=== PATIENT | male | born 1970 | race Caucasian/White ===

== ENCOUNTER 2024-05-06 09:22 | Inpatient (IN) ==
--- NOTE | 2024-05-06 10:09 | Emergency Department Note ---
History of Present Illness General Chief complaint: Weakness Stated complaint: R SIDE WEAKNESS Time Seen by Provider: 05/06/24 09:27 Source: patient Mode of arrival: wheelchair Limitations: physical limitation History of Present Illness Patient is a 53-year-old male with history of recently diagnosed glioblastoma of the left parietal region presenting with right sided weakness and muscle spasms. Last known well at 4:30 AM this morning. Patient has chronic weakness to his right upper extremity with intermittent weakness in the right lower extremity however worse today. He is unable to ambulate due to weakness in his right leg and has numbness from the knee down. He also has weakness in his right arm that is more severe than his baseline. Patient is also reporting spasms to the chest wall that started this morning as well. These are new and he has not had this before. He last received chemotherapy in March. He denies any headache, vision change, speech change, facial droop. Denies any lightheadedness, dizziness, fevers or chills. No chest pain, shortness of breath, abdominal pain, nausea, vomiting. He is on dexamethasone chronically and recently decrease his dose to daily from twice daily. Home Medications Medication Instructions Recorded Confirmed Type ibuprofen 200 mg tablet (Advil) 800 mg PO QID PRN Pain 06/08/18 05/06/24 History losartan 50 mg-hydrochlorothiazide 1.5 tab PO QAM 01/16/24 05/06/24 History 12.5 mg tablet metformin 500 mg tablet,extended 1,000 mg PO BID 01/16/24 05/06/24 History release 24 hr tirzepatide 2.5 mg/0.5 mL 2.5 mg subcut WK 01/16/24 05/06/24 History subcutaneous pen injector (Mounjaro) acetaminophen 325 mg tablet 975 mg PO Q6H PRN Pain 02/12/24 05/06/24 History (Tylenol) albuterol sulfate 90 mcg/actuation 2 puff inhalation Q4H PRN 02/12/24 05/06/24 History aerosol inhaler (Ventolin HFA) SOB/Wheezing temozolomide 180 mg capsule 0 mg PO DAILY 03/10/24 05/06/24 History Allergies Allergy/AdvReac Type Severity Reaction Status Date / Time No Known Allergies Allergy Unknown Unverified 05/06/24 13:26 Past Med/Surg History Problem List (Updated 05/06/24 @ 15:09 by Will Estevez MD) Right arm weakness (Acute) Right leg weakness (Acute) Glioblastoma multiforme of parietal lobe (Chronic 01/22/24) Medical History (Updated 05/06/24 @ 15:09 by Will Estevez MD) Sleep apnea Diabetes HTN (hypertension) Surgical History (Updated 02/12/24 @ 09:25 by Li Glover, RN) History of surgery Left hand surgery d/t nail in hand S/P craniotomy Left craniotomy for tumor resection 01/22/24 Dr. Lopez at [facility] Family History (Updated 02/12/24 @ 09:27 by Li Glover, RN) Mother No problems noted. Father Hypertension Diabetes Brother No problems noted. Sister No problems noted. Son No problems noted. Daughter No problems noted. 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 Physical Exam Vital Signs Vital Signs - 24 hr 05/06/24 09:25 05/06/24 09:34 05/06/24 09:35 Temperature 36.6 C Temperature Source Oral Pulse Rate 128 H 137 H Pulse Rate [Apical] Pulse Strength [Apical] Respiratory Rate 25 H Respiratory Effort / Characteristics Non-Labored Spontaneous Respiratory Depth Normal Respiratory Pattern Blood Pressure 159/115 H Blood Pressure [Left Arm] Blood Pressure Mean 129 Blood Pressure Mean [Left Arm] Pulse Oximetry 96 Oxygen Delivery Method Room Air Room Air Sepsis Recent Fever Within 48 Hours No Sepsis New/Unexplained Change in Mental Status No Sepsis Action Taken by Nursing No Action Required 05/06/24 11:30 05/06/24 13:00 05/06/24 14:14 Temperature Temperature Source Pulse Rate 80 Pulse Rate [Apical] 96 H 86 Pulse Strength [Apical] Normal Respiratory Rate 24 21 Respiratory Effort / Characteristics Non-Labored Respiratory Depth Normal Respiratory Pattern Regular Blood Pressure Blood Pressure [Left Arm] 114/75 Blood Pressure Mean Blood Pressure Mean [Left Arm] 88 Pulse Oximetry 91 94 Oxygen Delivery Method Room Air Room Air Sepsis Recent Fever Within 48 Hours Sepsis New/Unexplained Change in Mental Status Sepsis Action Taken by Nursing See below Constitutional WD/WN, vitals as above Eyes PERRL, conjunctivae normal, anicteric sclerae Neck trachea midline, no thyromegaly Respiratory + labored breathing, + uses accessory muscles and + abnormal respiratory pattern Auscultation: lungs clear to auscultation bilaterally Cardiovascular Rate/Rhythm: + tachycardic Heart Sounds: normal S1 and normal S2 Chest (Breasts) normal inspection/palpation of breasts Additional Comments: Intermittent spasms noted to the chest wall Gastrointestinal (Abdomen) normal bowel sounds, soft, nontender, no hepatosplenomegaly Musculoskeletal no cyanosis or clubbing, extremities motor strength 5/5 Skin no rashes, warm and dry Neurologic Cranial nerves II through XII are intact, normal speech, 4 out of 5 strength in the right upper extremity, 5 out of 5 strength in the left upper extremity, 3 out of 5 strength to the right lower extremity, 5 out of 5 strength to the left lower extremity, light touch sensation deficit noted to the right lower extremity distal to the right knee joint, unable to assess gait, unable to assess finger-nose testing or [id number] testing on the right Course Administered Medications Discontinued Medications Ioversol (Optiray 320 125ml) 112 ml IV ONCE ONE Stop: 05/06/24 10:50 Last Admin: 05/06/24 10:49 Dose: 112 ml Documented By: FIOR Lorazepam (Lorazepam 2 Mg/1 Ml Vial) 1 mg IV NOW STA Stop: 05/06/24 09:57 Last Admin: 05/06/24 10:14 Dose: 1 mg Documented By: Medical Decision Making Differential Diagnosis CVA, intracranial bleed, progression of underlying glioblastoma Medical Records Attestation: I reviewed the patient's medical records. Laboratory Data Attestation: I reviewed the patient's lab results. 05/06/24 09:34 05/06/24 09:34 Lab Results 05/06/24 05/06/24 05/06/24 Range/Units 09:34 10:12 11:55 WBC 13.42 H (4.8-10.8) K/ul RBC 5.21 (4.70-6.10) M/uL Hgb 15.6 (14.0-18.0) g/dl Hct 44.7 (42.0-52.0) % MCV 85.8 (80.0-100.0) fL MCH 29.9 (25.0-34.0) pg MCHC 34.9 (32.0-36.0) g/dL RDW Std Deviation 45.2 (36.4-46.3) fL RDW Coeff of Fani 14.6 H (11.5-14.5) % Plt Count 151 (130-400) K/uL MPV 9.7 (9.4-12.4) fL Immature Gran % (Auto) 3.6 % Neut % (Auto) 83.2 % Lymph % (Auto) 5.6 % [place] % (Auto) 7.1 % Eos % (Auto) 0.2 % Baso % (Auto) 0.3 % Neut # (Auto) 11.17 H (1.40-6.50) K/uL Lymph # (Auto) 0.75 L (1.20-3.40) K/uL [place] # (Auto) 0.95 H (0.11-0.59) K/uL Eos # (Auto) 0.03 (0.00-0.50) K/uL Baso # (Auto) 0.04 (0.00-0.20) K/uL Immature Gran # (Auto) 0.48 H (0.01-0.20) K/uL PT 9.9 (9.0-12.0) Seconds INR 0.9 (0.9-1.1) APTT 22 (21-31) Seconds PTT Ratio 0.8 Sodium 140 (136-145) mmol/L Potassium 3.6 (3.5-5.1) mmol/L Chloride 102 (98-107) mmol/L Carbon Dioxide 27 (21-32) mmol/L Anion Gap 11 (3-11) BUN 29 H (6-23) mg/dl Creatinine 0.86 (0.6-1.4) mg/dl Est Cr Clr Drug Dosing 125.1 ml/min eGFR 104.83 BUN/Creatinine Ratio 33.7 H (10-20) Glucose 203 H (70-99(Fasting)) mg/dl Calcium 9.0 (8.6-10.3) mg/dl Magnesium 1.8 (1.7-2.4) mg/dl Total Bilirubin 1.2 H (0.2-1.0) mg/dl AST 18 (13-39) U/L ALT 43 (7-52) U/L Alkaline Phosphatase 45 (34-104) U/L Troponin I High Sens 20.3 H 23.4 H (0-20) pg/ml Total Protein 6.5 (6.0-8.3) gm/dl Albumin 3.8 (3.4-5.0) gm/dl Globulin 2.7 (2.5-4.0) gm/dl Albumin/Globulin Ratio 1.4 (0.9-2) TSH 3.922 (0.300-4.500) uIu/ml Blood Type A Negative Antibody Screen NEGATIVE Imaging Data Radiologist's Impression: Head CT 05/06/24 09:57 CT head/brain wo con CLINICAL HISTORY: 53 years-old Male with neuro deficit, acute stroke suspected. Acute stroke like symptoms TECHNIQUE: Multiple axial CT images of the head were obtained without contrast. A dose lowering technique was utilized adhering to the principles of ALARA. COMPARISON: Brain MRI 01/22/2024, head CT 01/16/2024, radiation scan 02/15/2024. FINDINGS: Prior left superior parietal craniotomy. Resection cavity within the superior left frontal parietal lobe with surrounding edema/encephalomalacia redemonstrated. There is decreased edema compared to the prior radiation scan. Calcifications of the falx cerebri. Study is motion degraded. No acute intracranial hemorrhage, midline shift, or hydrocephalus. Ill-defined low attenuating focus is noted within the left occipital distribution on image 16 series 2. The paranasal sinuses, mastoid air cells, and middle ear cavities are clear. IMPRESSION: 1. Mildly motion degraded exam without acute intracranial hemorrhage or midline shift. 2. Ill-defined focus of slightly decreased attenuation within the left occipital lobe may be artifactual or represent an early acute infarct. 3. Chronic postoperative changes as above with decreased edema surrounding the operative bed within the superior left frontoparietal lobe compared to the prior study. ACT 112: Negative or not required by law. The above report was generated using voice recognition software. It may contain grammatical, syntax or spelling errors. Electronically signed by: Rohit Bennett M.D. 05/06/2024 11:13 AM Head CTA 05/06/24 09:57 CTA ANGIOGRAPHY OF THE HEAD CLINICAL HISTORY: neuro deficit, acute stroke suspected COMPARISON STUDY: CTA of the head January 16, 2024. MRI of the brain January 22, 2024. TECHNIQUE: Helical axial images of the head were obtained following uneventful intravenous administration of 112 cc of Optiray. Sagittal and coronal reconstructions were viewed as well as maximal intensity projections on an independent 3-D workstation. Automated exposure control was utilized for the study. A dose lowering technique was utilized adhering to the principles of ALARA. FINDINGS: Please note that the head CT will be reported separately. Status post left parietal craniotomy. Postoperative findings are better depicted on the head CT will be reported separately. The bilateral M1, M2, A1 and A2 segments are patent. Posterior circulation is intact. No intracranial aneurysm. No vessel occlusion is identified. IMPRESSION: 1. No large vessel occlusion. No intracranial aneurysm. 2. Status post left-sided craniotomy. Postoperative findings better depicted on the same day head CT will be reported separately. ACT 112: Negative or not required by law. Electronically signed by: Jose Cruz Coon M.D. 05/06/2024 11:29 AM Neck CTA 05/06/24 09:57 CT ANGIOGRAPHY OF THE NECK WITH CONTRAST CLINICAL HISTORY: neuro deficit, acute stroke suspected COMPARISON STUDY: CTA of the neck January 16, 2024. Technique: CT angiography of the carotid and vertebral arteries was obtained using Optiray and 3D reconstruction on an independent workstation. NASCET criteria was utilized. Automated exposure control was utilized for the study. A dose lowering technique was utilized adhering to the principles of ALARA. CT DOSE: 1275.34 mGy.cm Findings: Visualized portions of the lung apices are unremarkable. There is no cervical lymphadenopathy. There are no cervical spine fractures. The bilateral common carotid, cervical internal carotid and vertebral arteries are patent. No stenosis, dissection or aneurysm is identified within these vessels. IMPRESSION: Unremarkable CTA of the neck. ACT 112: Negative or not required by law. Electronically signed by: Jose Cruz Coon M.D. 05/06/2024 11:19 AM Chest X-Ray 05/06/24 09:58 XR chest 1V portable HISTORY: 53 years-old Male Tachypnea COMPARISON: Chest CT 01/16/2024 TECHNIQUE: AP view of the chest FINDINGS: Cardiac silhouette is enlarged. Mild right hemidiaphragmatic elevation. No pneumothorax, pleural effusion, airspace consolidation or overt pulmonary edema. Degenerative changes of the shoulders and spine. IMPRESSION: No acute process. ACT 112: Negative or not required by law. The above report was generated using voice recognition software. It may contain grammatical, syntax or spelling errors. Electronically signed by: Rohit Bennett M.D. 05/06/2024 10:34 AM Blood Pressure Blood Pressure Findings: Normal blood pressure MDM Narrative Patient is a 53-year-old male with history of recently diagnosed glioblastoma who presents for right-sided weakness to the right arm and leg as well as chest wall spasms. On my evaluation patient is having constant resting spasms of the entire chest wall however his respiratory rate is 21 and he does not endorse any difficulty breathing. Oxygen saturation 94% on room air. He did have some right upper extremity weakness and right lower extremity weakness on my examination. According to patient's this weakness is not new however she does state it is more pronounced today. Unfortunately due to last known well time and underlying brain cancer he is not a candidate for thrombolytics. I did obtain CTA of the head and neck as well as CT without contrast. No large vessel occlusion noted. Small lesion to the left occiput noted on CT without contrast unclear if this is motion artifact versus acute infarct. Postsurgical changes intact on CT. I did speak with the PA for Dr. Lopez at [facility] neurosurgery who states there is no indication for transfer or neurosurgical intervention at this time. They did recommend MRI of the brain with and without contrast for further evaluation as weakness with underlying lung cancer. Patient does have mild leukocytosis likely secondary to chronic steroid use. Hyperglycemia without DKA. Patient was excepted by the hospitalist service for admission. Impression & Plan Glioblastoma multiforme of parietal lobe, Right leg weakness, Right arm weakness Admission Discharge Plan Visit Data Chief Complaint: Weakness Stated Complaint: R SIDE WEAKNESS ED Provider: Cohagan,Will J Discharge Problem: Glioblastoma multiforme of parietal lobe, Right leg weakness, Right arm weakness Forms Stand Alone Forms: My [facility] [place] [employer] Prescriptions Prescriptions: No Action albuterol sulfate [Ventolin HFA] 90 mcg/actuation HFA aerosol inhaler 2 puff inhalation Q4H PRN (Reason: SOB/Wheezing) acetaminophen [Tylenol] 325 mg tablet 975 mg PO Q6H PRN (Reason: Pain) Rx Instructions: Unable to verify OTC meds at this date/time. temozolomide 180 mg capsule 0 mg PO DAILY Rx Instructions: Not on file w/ pharmacy. Unable to verify w/ pt/family at this date/time. Original Directions: 180mg by mouth daily ibuprofen [Advil] 200 mg Tablet 800 mg PO QID PRN (Reason: Pain) Rx Instructions: Unable to verify OTC meds at this date/time. losartan-hydrochlorothiazide 50-12.5 mg tablet 1.5 tab PO QAM metformin 500 mg tablet extended release 24 hr 1,000 mg PO BID Mounjaro 2.5 mg/0.5 mL pen injector 2.5 mg SUBCUT WK Referrals Referrals: Beverly Gonzales CRNP [Primary Care Provider] -
[2024-05-06] MEDS: LORazepam 2 MG/1 ML VIAL IV STA (10:14)
[2024-05-06 10:18] LABS: Basophils # (auto) 0.04 K/uL (0.00-0.20); Basophils % (auto) 0.3 %; Eosinophils # (auto) 0.03 K/uL (0.00-0.50); Eosinophils % (auto) 0.2 %; Hematocrit (blood only) 44.7 % (42.0-52.0); Hemoglobin 15.6 g/dl (14.0-18.0); Immature Granulocytes # (auto) 0.48 K/uL (0.01-0.20); Immature Granulocytes % (auto) 3.6 %; Lymphocytes # (auto) 0.75 K/uL (1.20-3.40); Lymphocytes % (auto) 5.6 %; Mean Corpuscular Hemoglobin 29.9 pg (25.0-34.0); Mean Corpuscular Hgb Conc 34.9 g/dL (32.0-36.0); Mean Corpuscular Volume 85.8 fL (80.0-100.0); Mean Platelet Volume 9.7 fL (9.4-12.4); Monocytes # (auto) 0.95 K/uL (0.11-0.59); Monocytes % (auto) 7.1 %; Neutrophils # (auto) 11.17 K/uL (1.40-6.50); Neutrophils % (auto) 83.2 %; Platelet Count 151 K/uL (130-400); RDW Coefficient of Variation 14.6 % (11.5-14.5); RDW Standard Deviation 45.2 fL (36.4-46.3); Red Blood Count 5.21 M/uL (4.70-6.10); White Blood Count 13.42 K/ul (4.8-10.8)
--- NOTE | 2024-05-06 10:35 | XRay Report ---
XR chest 1V portable HISTORY: 53 years-old Male Tachypnea COMPARISON: Chest CT 01/16/2024 TECHNIQUE: AP view of the chest FINDINGS: Cardiac silhouette is enlarged. Mild right hemidiaphragmatic elevation. No pneumothorax, pleural effu bee, airspace consolidation or overt pulmonary edema. Degenerative changes of the shoulders and spin e. IMPRESSION: No acute process. ACT 112: Negative or not required by law. The above report was generated using voice recognition software. It may contain grammatical, syntax o r spelling errors. Electronically signed by: Rohit Bennett M.D. 05/06/2024 10:34 AM
[2024-05-06 10:40] LABS: Albumin Globulin Ratio 1.4 (0.9-2); Albumin Level 3.8 gm/dl (3.4-5.0); BUN Creatinine Ratio 33.7 (10-20); Bilirubin,Total 1.2 mg/dl (0.2-1.0); Creatinine Clr Calc Pharmacy 125.1 ml/min; Globulin 2.7 gm/dl (2.5-4.0); Magnesium 1.8 mg/dl (1.7-2.4); Potassium 3.6 mmol/L (3.5-5.1); Total Protein 6.5 gm/dl (6.0-8.3)
[2024-05-06 10:46] LABS: INR 0.9 (0.9-1.1); Partial Thromboplastin Ratio 0.8; Partial Thromboplastin Time 22 Seconds (21-31); Prothrombin Time 9.9 Seconds (9.0-12.0); Troponin I High Sensitivity 20.3 pg/ml (0-20)
[2024-05-06] MEDS: OPTIRAY 320 125ml IV ONE (10:49)
[2024-05-06 10:56] LABS: Thyroid Stimulating Hormone 3.922 uIu/ml (0.300-4.500)
--- NOTE | 2024-05-06 11:15 | CT Scan Report ---
CT head/brain wo con CLINICAL HISTORY: 53 years-old Male with neuro deficit, acute stroke suspected. Acute stroke like sy mptoms TECHNIQUE: Multiple axial CT images of the head were obtained without contrast. A dose lowering tech nique was utilized adhering to the principles of ALARA. COMPARISON: Brain MRI 01/22/2024, head CT 01/16/2024, radiation scan 02/15/2024. FINDINGS: Prior left superior parietal craniotomy. Resection cavity within the superior left frontal parietal l obe with surrounding edema/encephalomalacia redemonstrated. There is decreased edema compared to the prior radiation scan. Calcifications of the falx cerebri. Study is motion degraded. No acute intracra nial hemorrhage, midline shift, or hydrocephalus. Ill-defined low attenuating focus is noted within t he left occipital distribution on image 16 series 2. The paranasal sinuses, mastoid air cells, and middle ear cavities are clear. IMPRESSION: 1. Mildly motion degraded exam without acute intracranial hemorrhage or midline shift. 2. Ill-defined focus of slightly decreased attenuation within the left occipital lobe may be artifact ual or represent an early acute infarct. 3. Chronic postoperative changes as above with decreased edema surrounding the operative bed within t he superior left frontoparietal lobe compared to the prior study. ACT 112: Negative or not required by law. The above report was generated using voice recognition software. It may contain grammatical, syntax o r spelling errors. Electronically signed by: Rohit Bennett M.D. 05/06/2024 11:13 AM
--- NOTE | 2024-05-06 11:20 | CT Scan Report ---
CT ANGIOGRAPHY OF THE NECK WITH CONTRAST CLINICAL HISTORY: neuro deficit, acute stroke suspected COMPARISON STUDY: CTA of the neck January 16, 2024. Technique: CT angiography of the carotid and vertebral arteries was obtained using Optiray and 3D rec onstruction on an independent workstation. NASCET criteria was utilized. Automated exposure control was utilized for the study. A dose lowering technique was utilized adhering to the principles of ALA RA. CT DOSE: 1275.34 mGy.cm Findings: Visualized portions of the lung apices are unremarkable. There is no cervical lymphadenopat hy. There are no cervical spine fractures. The bilateral common carotid, cervical internal carotid an d vertebral arteries are patent. No stenosis, dissection or aneurysm is identified within these vesse ls. IMPRESSION: Unremarkable CTA of the neck. ACT 112: Negative or not required by law. Electronically signed by: Jose Cruz Coon M.D. 05/06/2024 11:19 AM
--- NOTE | 2024-05-06 11:32 | CT Scan Report ---
CTA ANGIOGRAPHY OF THE HEAD CLINICAL HISTORY: neuro deficit, acute stroke suspected COMPARISON STUDY: CTA of the head January 16, 2024. MRI of the brain January 22, 2024. TECHNIQUE: Helical axial images of the head were obtained following uneventful intravenous administr ation of 112 cc of Optiray. Sagittal and coronal reconstructions were viewed as well as maximal inten sity projections on an independent 3-D workstation. Automated exposure control was utilized for the study. A dose lowering technique was utilized adhering to the principles of ALARA. FINDINGS: Please note that the head CT will be reported separately. Status post left parietal craniot river. Postoperative findings are better depicted on the head CT will be reported separately. The bilat eral M1, M2, A1 and A2 segments are patent. Posterior circulation is intact. No intracranial aneurysm . No vessel occlusion is identified. IMPRESSION: 1. No large vessel occlusion. No intracranial aneurysm. 2. Status post left-sided craniotomy. Postoperative findings better depicted on the same day head CT will be reported separately. ACT 112: Negative or not required by law. Electronically signed by: Jose Cruz Coon M.D. 05/06/2024 11:29 AM
--- NOTE | 2024-05-06 15:13 | History & Physical Report ---
Date of Service May 06, 2024 Assessment & Plan (1) Glioblastoma multiforme of parietal lobe: (2) S/P craniotomy: (3) Right arm weakness: (4) Right leg weakness: (5) Sleep apnea: (6) Diabetes: (7) HTN (hypertension): Plan Mr. Guillen is a 53 year old male that presents to the ED with complaints of right sided weakness that is known to him; he reports that he noticed the change most since last Sunday when his steroid dosing was decreased from BID to daily dosing. . He has an unfortunate relatively new diagnosis of glioblastoma multiforme; diagnosed 02/16 and is under the care of Dr. Stanton with hematology/oncology. He underwent a craniotomy and resection on January 22, 2024 under the care of Dr. Lopez at [facility] and most recent radx/chemo treatment on 04/10 . He is to have a follow up with neurosurgery on 05/19 at [facility] and then meet with Dr. Stanton for further oncological treatment plan of care. He underwent chemo and radiation 04/10/24. Recent change with his dexamethasone dosing from BID--> daily. Leukocytosis noted 13.42; however on steroids, troponin mildly elevated 20.3-->23.4. no transaminitis and no other electrolyte abnormalities. Head CT, head/neck CTA without any surgical changes or new findings. ED s/w neurosurgery team at [facility], the PA for Dr. Lopez who recommended a brain MRI. AFter speaking with him he states that he was experiencing expressive aphagia, but not receptive aphagia symptoms. Patient will be admitted for further evaluation and management of his weakness. Will obtain brain MRI, after orbits xray, order PPI, increase Decadron back to 4 mg BID, Ativan PRN, trend troponin, obtain PT/OT, notify his heme/onc providers of admission and trend labs. Glioblastoma multiforme: Status post craniotomy: Right UE weakness/right LE weakness: Diagnosed 01/16 and was tx to [facility] during last visit to ED here. S/P craniotomy and resection on January 22, 2024 under the care of Dr. Lopez at [facility] Leukocytosis: 13.42; suspect related to steroid use most recent radx/chemo treatment on 04/[address] Stanton This past 05/02 dexamethasone dosing from BID--> daily Head CT, head/neck CTA without any surgical changes or new findings ED s/w neurosurgery team at [facility], the PA for Dr. Lopez who recommended a brain MRI; ordered and pending symptoms appear to have resolved to baseline Takes Temozolomide daily PT/OT consult placed Ativan PRN PPI ordered while on steroid Will increase steroid back to BID dosing Neuro consultation placed HTN: Chronic Takes losartan-HCTZ; continue ELY: chronic wears cpap at home order placed to bring in own cpap Diabetes Mellitus: Non insulin dependent Takes Metformin and Mounjaro; hold while inpt place on SSI ac/hs Glycemic pharmacy Check A1C Disposition: PCP: Dr. Gonzales Code Status: Full Code VTE Prophylaxis: Teds and SCDs for now I spent a total of 82 minutes coordinating, documenting, and providing care for this patient excluding time spent inthe performance of separately billed services or time spent by another provider/QHP. History of Present Illness Chief Complaint: weakness Primary Care Provider: DON Bourne Mr. Guillen is a 53 year old male that presents to the ED with complaints of right sided weakness that is known to him; he reports that he noticed the change most since last Sunday when his steroid dosing was decreased from BID to daily dosing. . He has an unfortunate relatively new diagnosis of glioblastoma multiforme; diagnosed 02/16 and is under the care of Dr. Stanton with hematology/oncology. He underwent a craniotomy and resection on January 22, 2024 under the care of Dr. Lopez at [facility] and completed radx/chemo treatment on 04/10. He is to have a follow up with neurosurgery on 05/19 at [facility] and then meet with Dr. Stanton for further oncological treatment plan of care. He underwent chemo and radiation 04/10/24. Recent change with his dexamethasone d osing from BID--> daily. Leukocytosis noted 13.42; however on steroids, troponin mildly elevated 20.3-->23.4. no transaminitis and no other electrolyte abnormalities. Head CT, head/neck CTA without any surgical changes or new findings. ED s/w neurosurgery team at [facility], the PA for Dr. Lopez who recommended a brain MRI. AFter speaking with him he states that he was experiencing expressive aphagia, but not receptive aphagia symptoms. Pt denies FLORES, dizziness, Chest pain, palpitations, N/V/D, recent travel or respiratory cough or other symptoms, recent falls or trauma. Patient will be admitted for further evaluation and management of his weakness. Will obtain brain MRI, after orbits xray, order PPI, increase Decadron back to 4 mg BID, Ativan PRN, trend troponin, obtain PT/OT, notify his heme/onc providers of admission and trend labs. Allergies Allergy/AdvReac Type Severity Reaction Status Date / Time No Known Allergies Allergy Unknown Unverified 05/06/24 13:26 Home Medications Medication Instructions Recorded Confirmed Type ibuprofen 200 mg tablet (Advil) 800 mg PO QID PRN Pain 06/08/18 05/06/24 History losartan 50 mg-hydrochlorothiazide 1.5 tab PO QAM 01/16/24 05/06/24 History 12.5 mg tablet metformin 500 mg tablet,extended 1,000 mg PO BID 01/16/24 05/06/24 History release 24 hr tirzepatide 2.5 mg/0.5 mL 2.5 mg subcut WK 01/16/24 05/06/24 History subcutaneous pen injector (Mounjaro) acetaminophen 325 mg tablet 975 mg PO Q6H PRN Pain 02/12/24 05/06/24 History (Tylenol) albuterol sulfate 90 mcg/actuation 2 puff inhalation Q4H PRN 02/12/24 05/06/24 History aerosol inhaler (Ventolin HFA) SOB/Wheezing temozolomide 180 mg capsule 0 mg PO DAILY 03/10/24 05/06/24 History dexamethasone 4 mg tablet 4 mg PO DAILY 05/06/24 05/06/24 History Past Med/Surg History Problem List Right arm weakness (Acute) Right leg weakness (Acute) Glioblastoma multiforme of parietal lobe (Chronic 01/22/24) Medical History Sleep apnea Diabetes HTN (hypertension) Surgical History History of surgery Left hand surgery d/t nail in hand S/P craniotomy Left craniotomy for tumor resection 01/22/24 Dr. Lopez at [facility] Family History Mother No problems noted. Father Hypertension Diabetes Brother No problems noted. Sister No problems noted. Son No problems noted. Daughter No problems noted. 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 [employer] How many Children do You have: 2 Other Information That Helps Us Care for You: No Feels Safe at Home: Yes Safety Concerns: Feels Safe At This Time during the past year weight has: decreased > 10 lbs Assistive Devices: Cane, Glasses, Walker and Wheelchair Review of Systems Review of Systems: Neuro: (-) Falls, trauma, slurred speech HEENT: (-) FLORES, dizziness, dysphagia, visual or auditory changes CV: (-) CP, palpitations, swelling Resp: (-) SOB GI: (-) appetite changes, N/V/D, bowel changes : (-) urinary changes Skin: (-) rashes Psych: (-) anxiety, depression Physical Exam Physical Exam: Neuro: AAOx4, PERRLA, no aphagia, memory changes, CNII-XII grossly intact HEENT: head normocephalic, moist mucus membranes CV: S1/S2, (-) M/G/R, (-) edema, cap refill < 3 seconds Resp: Lungs CTA in all lemus. On RA GI: Abdomen S/NT/ND, Ax4 bowel sounds, (-) CVA tenderness Musculoskeletal: 5/5 B/L UE strength, 4/5 RLE strength. No gait disturbance Skin: (-) rashes , (-) erythema. Psych: euthymic mood Results & Data Results & Data Vital Signs (Past 12 Hours) Vital Signs Temp Pulse Pulse Resp BP BP Pulse Ox 05/06/24 14:14 80 05/06/24 13:00 86 21 114/75 94 05/06/24 11:30 96 H 24 91 05/06/24 09:35 137 H 05/06/24 09:34 05/06/24 09:25 36.6 C 128 H 25 H 159/115 H 96 O2 Del Method 05/06/24 14:14 05/06/24 13:00 Room Air 05/06/24 11:30 Room Air 05/06/24 09:35 05/06/24 09:34 Room Air 05/06/24 09:25 Room Air Laboratory Results Short CBC 05/06/24 Range/Units 09:34 WBC 13.42 H (4.8-10.8) K/ul Hgb 15.6 (14.0-18.0) g/dl Hct 44.7 (42.0-52.0) % Plt Count 151 (130-400) K/uL BMP 05/06/24 09:34 Sodium 140 Potassium 3.6 Chloride 102 Carbon Dioxide 27 BUN 29 H Creatinine 0.86 Glucose 203 H Calcium 9.0 Liver Function 05/06/24 Range/Units 09:34 Total Bilirubin 1.2 H (0.2-1.0) mg/dl AST 18 (13-39) U/L ALT 43 (7-52) U/L Alkaline Phosphatase 45 (34-104) U/L Albumin 3.8 (3.4-5.0) gm/dl Diagnostic Findings Head CT 05/06/24 09:57 CT head/brain wo con CLINICAL HISTORY: 53 years-old Male with neuro deficit, acute stroke suspected. Acute stroke like symptoms TECHNIQUE: Multiple axial CT images of the head were obtained without contrast. A dose lowering technique was utilized adhering to the principles of ALARA. COMPARISON: Brain MRI 01/22/2024, head CT 01/16/2024, radiation scan 02/15/2024. FINDINGS: Prior left superior parietal craniotomy. Resection cavity within the superior left frontal parietal lobe with surrounding edema/encephalomalacia redemonstrated. There is decreased edema compared to the prior radiation scan. Calcifications of the falx cerebri. Study is motion degraded. No acute intracran ial hemorrhage, midline shift, or hydrocephalus. Ill-defined low attenuating focus is noted within the left occipital distribution on image 16 series 2. The paranasal sinuses, mastoid air cells, and middle ear cavities are clear. IMPRESSION: 1. Mildly motion degraded exam without acute intracranial hemorrhage or midline shift. 2. Ill-defined focus of slightly decreased attenuation within the left occipital lobe may be artifactual or represent an early acute infarct. 3. Chronic postoperative changes as above with decreased edema surrounding the operative bed within the superior left frontoparietal lobe compared to the prior study. ACT 112: Negative or not required by law. The above report was generated using voice recognition software. It may contain grammatical, syntax or spelling errors. Electronically signed by: Rohit Bennett M.D. 05/06/2024 11:13 AM Head CTA 05/06/24 09:57 CTA ANGIOGRAPHY OF THE HEAD CLINICAL HISTORY: neuro deficit, acute stroke suspected COMPARISON STUDY: CTA of the head January 16, 2024. MRI of the brain January 22, 2024. TECHNIQUE: Helical axial images of the head were obtained following uneventful intravenous administration of 112 cc of Optiray. Sagittal and coronal reconstructions were viewed as well as maximal intensity projections on an independent 3-D workstation. Automated exposure control was utilized for the study. A dose lowering technique was utilized adhering to the principles of ALARA. FINDINGS: Please note that the head CT will be reported separately. Status post left parietal craniotomy. Postoperative findings are better depicted on the head CT will be reported separately. The bilateral M1, M2, A1 and A2 segments are patent. Posterior circulation is intact. No intracranial aneurysm. No vessel occlusion is identified. IMPRESSION: 1. No large vessel occlusion. No intracranial aneurysm. 2. Status post left-sided craniotomy. Postoperative findings better depicted on the same day head CT will be reported separately. ACT 112: Negative or not required by law. Electronically signed by: Jose Cruz Coon M.D. 05/06/2024 11:29 AM Neck CTA 05/06/24 09:57 CT ANGIOGRAPHY OF THE NECK WITH CONTRAST CLINICAL HISTORY: neuro deficit, acute stroke suspected COMPARISON STUDY: CTA of the neck January 16, 2024. Technique: CT angiography of the carotid and vertebral arteries was obtained using Optiray and 3D reconstruction on an independent workstation. NASCET criteria was utilized. Automated exposure control was utilized for the study. A dose lowering technique was utilized adhering to the principles of ALARA. CT DOSE: 1275.34 mGy.cm Findings: Visualized portions of the lung apices are unremarkable. There is no cervical lymphadenopathy. There are no cervical spine fractures. The bilateral common carotid, cervical internal carotid and vertebral arteries are patent. No stenosis, dissection or aneurysm is identified within these vessels. IMPRESSION: Unremarkable CTA of the neck. ACT 112: Negative or not required by law. Electronically signed by: Jose Cruz Coon M.D. 05/06/2024 11:19 AM Chest X-Ray 05/06/24 09:58 XR chest 1V portable HISTORY: 53 years-old Male Tachypnea COMPARISON: Chest CT 01/16/2024 TECHNIQUE: AP view of the chest FINDINGS: Cardiac silhouette is enlarged. Mild right hemidiaphragmatic elevation. No pneumothorax, pleural effusion, airspace consolidation or overt pulmonary edema. Degenerative changes of the shoulders and spine. IMPRESSION: No acute process. ACT 112: Negative or not required by law. The above report was generated using voice recognition software. It may contain grammatical, syntax or spelling errors. Electronically signed by: Rohit Bennett M.D. 05/06/2024 10:34 AM Code Status & VTE Plan Code Status Full code in the event of cardiac or respiratory arrest VTE Prophylaxis Plan VTE Prophylaxis will be ordered: Yes Supervising Physician Co-Signing Physician Notes 53-year-old male with recent diagnosis of glioblastoma multiforme 02/16 underwent craniotomy and resection on January 22, 2024 and chemoradiation on 04/10/24 who was using dexamethasone twice a day currently changed to daily since last Sunday came in with complaint of worsening weakness on his right extremities. Generally he has right sided weakness, since dexa dose was decreased to once daily he has increased weakness of right sided extremities. He also noted some slurring of speech today which resolved on itself in couple of hours. Patient denies fever/sore throat/cough. Reports occasional headache and nausea. Reports appetite has been okay. Labs reviewed, leukocytosis noted likely secondary to dexamethasone use. No signs of infection. RFT fairly WNL. Patient's troponin flat trend/downtrending. Admitting imagings reviewed. Symptoms likely 2/2 to underlying GBM progression, will get MRI brain, neuro consult. PT/OT. will increase dexa back to 4 mg bid, add ppi for gi side effects. On Exam : GENERAL: Alert and oriented x3. NAD, on RA. HEENT: No pallor, no icterus. Pupils equal, round and reactive to light. Oral mucosa moist. Old healed coronal surgical scar noted at vertex. NECK: No JVD, no neck masses. HEART: S1 and S2 heard. Regular rate and rhythm. No murmur, no gallop. RESPIRATORY SYSTEM: Normal AP diameter. No accessory muscle use. No wheezing, no crackles. ABDOMEN: Soft, bowel sounds present, nontender, no distention. CENTRAL NERVOUS SYSTEM: No facial droop. Speech is clear. Obeys simple commands. Moves extremities. RLE 4/5, rest 5/5. EXTREMITIES: No edema, no erythema seen. I have seen and examined the patient and have discussed the case with the provider above. I agree with the assessment and plan as stated. Time spent: 30 min.
--- OUTSIDE RECORDS SUMMARY | 2024-05-06 16:10 | External Medical Summary | Summary of Care ---
Author Name Unknown Organization [facility] Address [address] [address] Phone [phone] Care Team Providers Care Colorist Formulator Name Role Phone Beverly Gonzaleslle DON Primary Care Provider Reason for Visit * Reason Comments Follow Up Re-Check Encounter Details Date Type Department Care Team (Late st Contact Info) Description 04/29/2024 11:30 AM EST Office Visit [facility] [place] [place] [address] [facility] [place] [phone] Keon Stanton MD [address] [facility] [id number] Glioblastoma multiforme (HCC)* Allergies No known active allergiesdocumented as of this encounter (statuses as of 04/29/2024) Medications BiPAP every night at bedtime . Active Ventolin HFA 108 (90 Base) MCG/ACT Inhalation Aerosol Solution Inhale 2 Puffs by mouth every 4 hours as needed for Cough, Shortness of Breath or Wheezing. 18 g 1 04/24/19 24 Active Additional Information Patient not taking.Reported on 01/22/2024 Acetaminophen 325 MG Oral Tablet (Tylenol) Take 3 Tablets by mouth every 6 hours as needed for Fever >38C(100.5F) or mild pain. 30 Tablet 4 3:38 PM EDT 01/23/20 24 Active oxyCODONE HCl 5 MG Oral Tablet (Oxy IR) Take 1 Tablet by mouth every 4 hours as needed for moderate pain. 30 Tablet 4 3:38 PM EDT 01/23/20 24 Active Additional Information Patient not taking.Reported on 02/04/2024 Docusate Sodium 100 MG Oral Capsule (Colace) Take 1 Capsule by mouth twice per day (morning, before bedtime). 10 Capsule 4 3:38 PM EDT 01/23/20 24 Active Additional Information Patient not taking.Reported on 02/04/2024 Sennosides 8.6 MG Oral Tablet (Senokot) Take 2 Tablets by mouth in the morning. 10 Tablet 4 3:38 PM EDT 01/24/20 24 Active Additional Information Patient not taking.Reported on 02/04/2024 Nicotine 14 MG/24HR Transdermal Patch 24 Hour (Nicoderm CQ) Place 1 Patch over 24 hours topically on the skin in the morning. For 28 days. 28 Patch 01/30/20 24 Active Additional Information Patient not taking.Reported on 02/04/2024 Nicotine 7 MG/24HR Transdermal Patch 24 Hour (Nicoderm CQ) One 7 mg patch daily for 2 weeks; Remove old patch daily; and then stop. 30 Patch 1 01/30/20 24 Active Additional Information Patient not taking.Reported on 02/04/2024 metFORMIN HCl ER 500 MG Oral Tablet Extended Release 24 Hour (Glucophage XR) Take 2 tablets by mouth twice daily 120 Tablet 5 03/01/20 24 Active Famotidine 20 MG Oral Tablet (Pepcid)Indicati ons:Glioblastoma multiforme (HCC),Gastroesop hageal reflux disease without esophagitis Take 1 Tablet by mouth in the morning and 1 Tablet before bedtime. 60 Tablet 5 03/05/20 24 Active dexAMETHasone 4 MG Oral Tablet (Decadron) Take 1 Tablet by mouth 2 times a day with morning and evening meals. Active Losartan Potassium-HCTZ 50-12.5 MG Oral Tablet (Hyzaar) TAKE 1 & 1/2 (ONE & ONE-HALF) TABLETS BY MOUTH IN THE MORNING 135 Tablet 3 03/20/20 24 Active Mounjaro 2.5 MG/0.5ML Subcutaneous Solution Auto-injector (Tirzepatide)Ind ications:Type 2 diabetes mellitus without complication, without long-term current use of insulin (HCC) INJECT 1 SYRINGE SUBCUTANEOUSLY ONCE A WEEK 4 mL 04/28/19 25 Active documented as of this encounter (statuses as of 04/29/2024) Active Problems Problem Noted Date Diagnosed Date Glioblastoma multiforme 02/08/2024 Body mass index (BMI) of 40.0 to 44.9 in adult 1 04/05/2023 Overview: Per Obesity protocol - Brain compression 01/17/2024 Cerebral edema 01/16/2024 Malignant neoplasm of parietal lobe 01/16/2024 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 05/01/2023 Reactive airways dysfunction syndrome with acute exacerbation 04/24/2023 Fatty liver 05/04/2022 Type 2 diabetes mellitus wit hout complication, without long-term current use of insulin 05/04/2021 Alcohol ingestion, 1-4 drinks per day 05/04/2021 Tobacco use disorder 05/04/2021 Essential hypertension 06/19/2018 Severe obstructive sleep apnea 09/14/2015 Overview (09/14/2015): BIPAP 17/0101/11/15 Split PSG - AHI 94.5/hr, hypoxemia, suboptimal titration from CPAP to BIPAP [facility] Hypersomnia 12/18/2014 documented as of this encounter (statuses as of 04/29/2024) Resolved Problems Problem Noted Date Diagnosed Date Resolved Date Body mass index (BMI) of 45. 0 to 49.9 in adult 05/07/2023 02/07/2024 Overview: Per Obesity protocol - Upper respiratory tract infection 04/24/2023 01/30/2024 Elevated LFTs 05/04/2021 05/04/2022 Shortness of breath 05/04/2021 01/30/20 24 BMI 50.0-59.9, adult 12/25/2016 024 Overview: Per Obesity protocol #1 Morbid obesity 12/18/2014 02/07/2024 Overview: Per Obesity protocol #1 Snoring 12/18/2014 01/30/2024 NO KNOWN PROBLEMS 11/14/2014 12/18/2014 documented as of this encounter (statuses as of 04/29/2024) Immunizations Name Administration Dates Next Due TDAP (age 10 and older)(Boostrix) 11/14/2014 documented as of this encounter Social History Tobacco Use Types Packs/Day Years Used Date Smoking Tobacco: Former Cigarettes S tarted: 2019 Smokeless Tobacco: Current Snuff Alcohol Use Standard Drinks/Week Comments Not Currently 14 (1 standard drink = 0.6 oz pu re alcohol) on weekends- 4 at a time PHQ-2 Answer Date Recorded PHQ-2 Score 0 06/13/2018 Sex and Gender Information Value Date Recorded Sex Assigned at Male 06/13/2018 12:21 PM EDT Legal Sex Male 7:17 AM EST Gender Identity Male 06/13/2018 12:21 PM EDT Sexual Orientation Straight 06/13/2018 12 :21 PM EDT 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 Answer Date of Assessment Author No 01/22/2024 4:47 PM Kirk Beckett RN * Are you blind or do you have serious difficulty seeing, even when wearing glasses? Answer Date of Assessment Author No 01/22/2024 4:47 PM Kirk Beckett RN * Do you have serious difficulty walking or climbing stairs? (5 years old or older) Answer Date of Assessment Author No 01/22/2024 4:47 PM Kirk Beckett RN * Do you have difficulty dressing or bathing? (5 years old or older) Answer Date of Assessment Author No 01/22/2024 4:47 PM EDT Argudo, E vani, RN * Because of a physical, mental, or emotional condition, do you have difficulty doing errands alone such as visiting a doctors office or shopping? (15 years old or older) Answer Date of Assessment Author No 01/22/2024 4:47 PM Kirk Beckett RN documented as of this encounter Mental Status * Because of a physical, mental, or emotional condition, do you have serious difficulty concentrating, remembering, or making decisions? (5 years old or older) Answer Entry Date Author No 01/22/2024 4:47 PM Kirk Beckett RN documented in this encounter Progress Notes * Keon Stanton MD - 04/29/2024 11:30 AM EST Hematology/Oncology Outpatient Clinic note [facility] Ayleen Rogers [address] [place] [address] Name: Mariano Guillen Date: 03/11/2024 CHIEF COMPLAINT: Mariano Guillen is a 53 year old male here today for f/u visit today. HEMATOLOGY/ONCOLOGY DIAGNOSIS: Glioblastoma multiforme, WHO grade 4. Involving the left parietal lobe. -EGFR not amplified. NGS checkup on 01/22/2024: -TMB--> 2.84 which is low -MSI stable -SHERRIE mutation noted. - MGMT gene promoter methylation --> not detected. DATE OF DIAGNOSIS: 01/22/24 TREATMENT HISTORY: Subtotal resection 01/22/24 - completed temozolomide and radiation treatment between 02/27/2024 -04/10/2024 CURRENT TREATMENT: Currently he is on Decadron 4 mg twice a day, within 1 week, he will cut down to 4 mg once a day and then he will stop it ( guided by radiation oncologist. Currently he is not on antiseizure medication prophylaxis. He is having brain MRI on 05/06/2023, has appointment at [facility] on 05/19/2024. We talked about phase 2 of the treatment with temozolomide single agent 5 days every 4 weekly. Temozolomide scheduled as follows: Cycle 1: Oral: 150 mg/m2 once daily on days 1 to 5 of the 28-day treatment cycle. Cycles 2 to 6: Oral, May increase to 200 mg/m2 once daily on days 1 to 5; repeat every 28 days for a total of 6 cycles (if ANC >=1,500/mm3, platelets >=100,000/mm3, and nonhematologic toxicities for cycle 1 are <= grade 2 [excludes alopecia, nausea/vomiting]) DIAGNOSTIC WORKUP: He presented to the ER on 01/16/2024 for 3 days' history of right leg numbness, could not walk properly when he showed up at work. Did not have any increasing nausea, vomiting or headache. CT scan of the head on 01/13/2024 showed left parietal lobe mass with surrounding vasogenic edema, he was then transferred at [facility]. Further workup as follows: Brain MRI on 01/13/2024: -infiltrative enhancing tumor in the medial aspect of the left parietal lobe measuring up to 3.6 cm. The tumor extends inferiorly and medially in the splenium of the corpus callosum with possible subependymal spread into the adjacent atrium of the left lateral ventricle. Possible extension of malignancy into one of the left parietal cortical sulci behind the tumor. -moderate vasogenic edema. CT scan of the chest, abdomen and pelvis on 01/13/2024 - Few sub 4 mm nodule likely granuloma or lymph nodes in the lungs. - Mild splenomegaly measuring about 13.5 cm. Left parietal brain tumor biopsy and resection--> high-grade Glidewire, WH of grade 4. Tumor measuring about 3.6 cm. (01/22/2024). -EGFR gene--> not amplified. -NGS and MGMT result pending Repeat brain MRI on 01/22/2024: -expected postsurgical changes of the left parietal craniotomy for tumor resection. -mild residual enhancement at the anterior and deep resection cavity margin extending into the corpus callosum. -adjacent vasogenic edema noted. OTHER IMPORTANT HISTORY: - Hypertension - Diabetes mellitus - Obesity current weight is around 262 lb - Obstetric sleep apnea. - Tobacco chewing, intermittent smoking. Currently on Nicoderm patch. HISTORY OF PRESENT ILLNESS: He has come the clinic for the follow-up, ambulating with the help of the cane. Now he completed phase 1 of combined chemotherapy temozolomide radiation treatment in mid-March of 2024 next para overall tolerated treatment well, no increasing nausea or vomiting, no focal neurologic symptoms other than some weakness in the right lower extremity, no headache, no blurring of vision, no speech disturbances, good appetite, no bleeding from the site, no no leg edema, no thrombotic complications, current weight around 274 lb, no cardiac or pulmonary symptoms Currently he is on Decadron 4 mg twice a day, he will cut down to 4 mg once a day in few days and then after 1 week he will stop that. ( guided by radiation oncologist) Past Medical History: Diagnosis Date Hypertension Morbid obesity (HCC) Sleep apnea Sleep apnea, obstructive Past Surgical History: Procedure Laterality Date INFORMATION Left left hand surgery to remove nail from hand MICROSURGERY ADD-ON Left 01/22/2024 MICROSURGICAL SURGERY REQUIRING MICROSCOPE LISTED SEPARATELY performed by Neo Lopez III, [place] [facility] [place] SUPRATENTORIAL BRAIN TUMOR Left 01/22/2024 CRANIOTOMY BONE FLAP EXCISION BRAIN TUMOR SUPRATENTORIAL performed by Neo Lopez III, MDa [place] [facility] Social History Socioeconomic History Marital status: Spouse name: Not on file Number of children: Not on file Years of education: Not on file Highest education level: Not on file Occupational History 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 Tobacco Use Smoking status: Former Types: Cigarettes Start date: 2018 Smokeless tobacco: Current Types: Snuff Vaping Use Vaping status: Never Used Substance and Sexual Activity Alcohol use: Not Currently Alcohol/week: 14.0 standard drinks of alcohol Types: 14 12 oz of beer per week Comment: on weekends- 4 at a time Drug use: No Sexual activity: Not on file Other Topics Concern Not on file Social History Narrative Not on file Social Needs Financial Resource Strain: Not on file Food Insecurity: Not on file Transportation Needs: Not on file Social Connections: Not on file Housing Stability: Not on file Review of patient's allergies indicates: No Known Allergies Current Outpatient Medications Medication Sig Dispense Refill BiPAP every night at bedtime . Ventolin HFA 108 (90 Base) MCG/ACT Inhalation Aerosol Solution Inhale 2 Puffs by mouth every 4 hours as needed for Cough, Shortness of Breath or Wheezing. (Patient not taking: Reported on 01/22/2024)18 g 1 Acetaminophen 325 MG Oral Tablet (Tylenol) Take 3 Tablets by mouth every 6 hours as needed for Fever >38C(100.5F) or mild pain. 30 Tablet 0 oxyCODONE HCl 5 MG Oral Tablet (Oxy IR) Take 1 Tablet by mouth every 4 hours as needed for moderatepain. (Patient not taking: Reported on 02/04/2024) 30 Tablet 0 Docusate Sodium 100 MG Oral Capsule (Colace) Take 1 Capsule by mouth twice per day (morning, beforebedtime). (Patient not taking: Reported on 02/04/2024) 10 Capsule 0 Sennosides 8.6 MG Oral Tablet (Senokot) Take 2 Tablets by mouth in the morning. (Patient not taking: Reported on 02/04/2024) 10 Tablet 0 Nicotine 14 MG/24HR Transdermal Patch 24 Hour (Nicoderm CQ) Place 1 Patch over 24 hours topically on the skin in the morning. For 28 days. (Patient not taking: Reported on 02/04/2024) 28 Patch 0 Nicotine 7 MG/24HR Transdermal Patch 24 Hour (Nicoderm CQ) One 7 mg patch daily for 2 weeks; Removeold patch daily; and then stop. (Patient not taking: Reported on 02/04/2024) 30 Patch 1 metFORMIN HCl ER 500 MG Oral Tablet Extended Release 24 Hour (Glucophage XR) Take 2 tablets by mouth twice daily 120 Tablet 5 Famotidine 20 MG Oral Tablet (Pepcid) Take 1 Tablet by mouth in the morning and 1 Tablet before bedtime. 60 Tablet 5 Mounjaro 2.5 MG/0.5ML Subcutaneous Solution Auto-injector (Tirzepatide) INJECT 1 SYRINGE SUBCUTANEOUSLY ONCE A WEEK 4 mL 1 dexAMETHasone 4 MG Oral Tablet (Decadron) Take 1 Tablet by mouth 2 times a day with morning and evening meals. Losartan Potassium-HCTZ 50-12.5 MG Oral Tablet (Hyzaar) TAKE 1 & 1/2 (ONE & ONE- HALF) TABLETS BY MOUTH IN THE MORNING 135 Tablet 3 No current facility-administered medications for this visit. REVIEW OF SYSTEMS: See HPI - otherwise negative OBJECTIVE: BP 122/78 (BP Site: Left Arm, BP Position: Sitting, BP Cuff Size: Large) | Pulse 77 | Temp 37.1 C(98.7 F) (Tympanic) | Wt 124.6 kg (274 lb 11.2 oz) | SpO2 95% | BMI 45.71 kg/m | BSA 2.39 m PHYSICAL EXAM: ECOG: Performance Status 1 = 80-90% Symptoms but nearly ambulatory General Appearance: Normal - Healthy appearing patient in no acute distress HEENT: Normal - No oral or pharyngeal masses, ulceration or thrush noted Lymph Nodes: Normal - No palpable lymph nodes in the neck or supraclavicular areas Lungs/Thorax: Normal - Clear to auscultation Heart: Normal - Regular rate and rhythm, normal S1, S2, no appreciable murmurs Pulses/Extremities: Normal - 2+ throughout and symmetrical, no edema Neurologic: Normal - Grossly intact LABS: Blood workup done on 04/09/2024 at [facility]: -BUN/Creat: 20/0.83, normal LFT -WBC 11,400, Hemoglobin and hematocrit -15.7/44.8, Platelet count of a 188,000 -ANC 9700, Absolute lymphocyte count 720. IMPRESSION/PLAN: Glioblastoma multiforme, WHO grade 4. Involving the left parietal lobe S/P subtotal resection 01/22/24 He completed combined chemoradiation treatment in mid- March 2024. . Currently he is on oral Decadron 4 mg twice a day. In the 3 days he will cut down to 4 mg once a day and then after 1 week he will stop it. No infections, no bleeding complications. No new neurological symptoms. Reviewed blood workup done on 04/09/2024, overall stable blood workup noted. He is scheduled for brain MRI on 05/06/2024, has an appointment with a Neuro- Oncology team at [facility] on 05/19/2024. Talked to them about role of temozolomide single agent that can be considered as a maintenance treatment if he has no progression of the disease and he is in agreement for that. Temozolomide treatment schedule as follows: Cycle 1: Oral: 150 mg/m2 once daily on days 1 to 5 of the 28-day treatment cycle. Cycles 2 to 6: Oral, May increase to 200 mg/m2 once daily on days 1 to 5; repeat every 28 days for a total of 6 cycles (if ANC >=1,500/mm3, platelets >=100,000/mm3, and nonhematologic toxicities for cycle 1 are <= grade 2 [excludes alopecia, nausea/vomiting]) I am planning to see him in about [address] Keon Stanton Hem/Onc (This note was completed using the dictation program Fluency Direct. As such, there may be misspellings word substitutions, or other variations that should not change the essence of the clinical content of this encounter note. If there is need for further clarification, please direct questions to the provider listed above.) documented in this encounter Nursing Notes * Treva Arndt MED ASSIST - 04/29/2024 11:25 AM EST Patient identifed by name and birthdate Do you have any concerns about pain management for today's visit? Yes. Patient instructed to discuss pain concerns with provider during the visit today Living Will or Advance Directive for Health Care as noted on the problem list. [employer] is a way you can talk to your provider on line through e-mail. Would you like to sign up? I can activate it for you? ALREADY ACTIVE Filed Vitals: 04/29/24 1122 BP: 122/78 Pulse: 77 Temp: 37.1 C (98.7 F) TempSrc: Tympanic SpO2: 95% Weight: 124.6 kg (274 lb 11.2 oz) Patient was instructed to not get up on the exam table/exam chair until directed and assisted by their provider; patient is to remain seated in the chair/ wheelchair/ exam table/ exam chair for fall prevention and safety reasons. Patient is aware to have assistance to step down off exam table/exam chair with personnel. Patient voiced full comprehension of instructions. documented in this encounter Plan of Treatment Upcoming Encounters Date Type Department Care Team (Late st Contact Info) Description 05/06/2024 8:45 AM EST Imaging Radiology [address], [address] [place] [phone] 05/06/2024 8:45 AM EST Imaging Radiology [facility] [address] [place] [phone] 05/19/2024 9:45 AM EST Office Visit Neurosurgery, [place] [address] [place] [address] Clinic, Brain Tumor Multidisciplinary [address] [place] [address] 05/20/2024 3:45 PM EST Pharmacy Pharmacy Hematology Oncology [facility], [place] [address] [place] [address] [facility] [place] Hem/Onc [address] [place] [address] 05/29/2024 8:00 AM EST Telemedicine Genetics [place], [facility] [address] [place] [address] Brittany Tafoya, MS [address] [place] [id number] 07/04/2024 11:00 AM EDT Office Visit Hematology/Oncology [facility] [address] [facility] [place] [phone] Keon Stanton MD 200 [facility] [place] [address] Health Maintenance Due Date Last Done Comments HIV Screening 12/22/1987 Diabetic Eye Exam 1990 Diabetic Foot Exam 1990 Hepatitis C Screening 1990 Hepatitis B Vaccine (1 of 3 - 19+ 3-dose series) 12/22/1991 Pneumococcal Vaccine: 50+ Years (1 of 2 - PCV) 12/22/1991 Cologuard 2017 Colonoscopy 2017 Colorectal Cancer Screening 2017 Fecal Occult Blood Test 2017 Sigmoidoscopy 2017 Depression Screening 06/14/2019 06/13/2018 Zoster Vaccines (1 of 2) 2022 Albumin/Creatinine Ratio 05/04/2023 05/04/2022, 03/27 COVID-19 Vaccine ( season) 2023 Influenza Vaccine (FLU shot) (#1) 2023 HbA1c 08/11/2024 02/12/2024, 08/2023, 02/26/2023, Additional history exists DTap/Tdap Vaccines (2 - Td or Tdap) 11/14/2024 11/14/2014 GFR 04/09/2025 04/09/2024, 02/23, 02/27/2024, Additional history exists Lipid Panel 02/11/2029 02/12/2024, 11/2022, 11/14/2014 HPV (Gardasil) Vaccine Aged Out No lo nger eligible based on patient's age to complete this topic MENINGOCOCCAL (MENACTRA/MENVEO) Aged Out No longer eligible based on patient's age to complete this topic documented as of this encounter Medical Devices Implanted Type Area Financial Aid Manager Device Identifier Shelf Expiration Date Model / Serial / Lot Cover Bur Hol Ti Lo 17 [id number] - [id number] Implanted:Qty: 1 on 01/22/2024 by Neo Lopez III, [place] [facility] [place]: Head SYNTHES MAXILLOFACIAL 421.527 / / Screw Ti Lo Pro Sd 4mm 400.834 - [id number] Implanted:Qty: 8 on 01/22/2024 by Neo Lopez III, MD at [place] [facility] [place]: Head SYNTHES MAXILLOFACIAL 400.834 / / Cover Bur Hol 15mm 421.526 - [id number] Implanted:Qty: 1 on 01/22/2024 by Neo Lopez III, MD at [place] [facility] [place]: Head SYNTHES MAXILLOFACIAL 421.526 / / documented as of this encounter Visit Diagnoses Diagnosis Glioblastoma multiforme (HCC)- Primary Malignant neoplasm of brain, unspecified site documented in this encounter Advance Directives Documents on File Type Date Recorded Patient Siebel Solution Architect Expl anation Power of Mounter Flutes And Piccolos 01/24/2024 signed on 01/21/2024 POWER OF FOREST FIRE FIGHTERS DISPATCHER * Full Code (Latest Code Status on File) Date Activated Date Inactivated Comments 01/22/2024 3:03 PM 01/23/2024 7:55 PM This order reflects the patients wishes and were consensually agreed upon. Question Answer Comments Discussion of Advance Direct isa occurred with: Not Discussed due to patient's condition * Full Code Date Activated Date Inactivated Comments 01/22/2024 8:58 AM 01/22/2024 3:03 PM This order reflects the patients wishes and were consensually agreed upon. Question Answer Comments Discussion of Advance Direct isa occurred with: Not Discussed due to patient's condition * Full Code Date Activated Date Inactivated Comments 01/16/2024 9:25 PM 01/18/2024 4:24 PM This order reflects the patients wishes and were consensually agreed upon. Question Answer Comments Discussion of Advance Direct isa occurred with: Not Discussed due to patient's condition Care Teams Colorist Formulator Relationship Specialty Start Date End Date Beverly Gonzales CRNP [address] [place] [id number] PCP - General Nurse Practitioner 04/24/23 documented as of this encounter"
--- OUTSIDE RECORDS SUMMARY | 2024-05-06 16:10 | External Medical Summary | Summary of Care ---
Author Name Unknown Organization [facility] Address [address] [facility] [place] [address] Phone [phone] Care Team Providers Care Hog Scraper Name Role Phone Beverly Gonzales Primary Care Provider Reason for Visit * Reason Onset Date Comments Referral 05/06/2024 Encounter Details Date Type Department Care Team (Late st Contact Info) Description 05/06/2024 Telephone Family Practice [facility] [address] [place] [address] Beverly Gonzales CRNP [address] [facility] [place] [address] Referral Allergies No known active allergiesdocumented as of this encounter (statuses as of 05/06/2024) Medications BiPAP every night at bedtime . 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 Not on file documented as of this encounter Functional Status * Are you [...] 01/22/2024 4:47 PM Kirk Beckett RN * Because of a physical, mental, [...] Kirk Beckett RN documented in this encounter Miscellaneous Notes * Telephone Encounter - Ana Lord OSA - 05/06/2024 8:14 AM EST Pt could not get out of bed and had me cancel MR Neuro and MRI she wanted to reschedule but I was denied due to them being scheduled out of Neuro [place] pt wants to get reschedule LEELA order was STAT please call pt and reschedule MRIs documented in this encounter Plan of Treatment Upcoming Encounters Date Type Department Care Team (Late st Contact Info) Description 05/19/2024 9:45 AM EST Office Visit Neurosurgery, [place] [address] [place] [address] Clinic, Brain Tumor Multidisciplinary [address] [place] [address] 05/20/2024 3:45 PM EST Pharmacy Pharmacy Hematology [facility] [address] [facility], [facility] Hem/Onc [address] [place] [address] 05/29/2024 8:00 AM EST Telemedicine Genetics [facility]c, [facility] [address] [place] [address] Brittany Tafoya, MS [address] [place] [address] 06/10/2024 7:20 AM EDT Office Visit Family Practice [facility] [address] [place] [address] Beverly Gonzales CRNP [address] [place] [address] 07/04/2024 11:00 AM EDT Office Visit Hematology/Oncology [facility] [address] [facility] [phone] Keon Stanton MD [address] [place] [address] Health Maintenance Due Date Last Done Comments [...] Additional history exists Lipid Panel 02/11/2029 02/12/2024, 0211/2022, 11/14/2014 HPV (Gardasil) Vaccine Aged Out No lo nger eligible based on patient's age to complete this topic MENINGOCOCCAL (MENACTRA/MENVEO) Aged Out No longer eligible based on patient's age to complete this topic documented as of this encounter Medical Devices Implanted Type Area Manager Fashion Device Identifier Shelf Expiration Date Model / Serial / Lot Cover Bur Hol Ti Lo 17 421.527 - [id number] Implanted:Qty: 1 on 01/22/2024 by Neo Lopez III, MD [place] [facility] Left: Head SYNTHES MAXILLOFACIAL 421.527 / / Screw Ti Lo Pro Sd 4mm 400.834 - [id number] Implanted:Qty: 8 on 01/22/2024 by Neo Lopez III, MD at [place] [facility] Left: Head SYNTHES MAXILLOFACIAL 400.834 / / Cover Bur Hol 15mm 421.526 - [id number] Implanted:Qty: 1 on 01/22/2024 by Neo Lopez III, MD at [place] [facility] Left: Head SYNTHES MAXILLOFACIAL 421.526 / / documented as of this encounter Advance Directives Documents on File Type Date Recorded Patient Manager Hiv Expl anation Power of Head Of Merchandise Buying 01/24/2024 signed on 01/21/2024 POWER OF RETRIEVAL SPECIALIST * Full Code (Latest Code Status on [...] Discussed due to patient's condition Care Teams Hog Scraper Relationship Specialty Start Date End Date Beverly Gonzales CRNP [address] [place] [address] PCP - General Nurse Practitioner 04/24/23 documented as of this encounter
--- OUTSIDE RECORDS SUMMARY | 2024-05-06 16:10 | External Medical Summary | Summary of Care ---
Author Name Unknown Organization [facility] Address [address] [facility] [place] [address] Phone [phone] Care Team Providers Care Cost Accounting Analyst Name Role Phone Beverly Gonzaleslle DON Primary Care Provider Reason for Visit * Reason Onset Date Comments Appointment 05/05/2024 Encounter Details Date Type Department Care Team (Late st Contact Info) Description 05/05/[address] [place] [address] Kristie Min TECH Appointment Allergies No known active allergiesdocumented as of this encounter (statuses as of 05/05/2024) Medications BiPAP every night at bedtime . 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 No Have you ever worked with metal or have you ever gotten metal in your eyes? No Have you had a colonoscopy in the last 30 days? No On dialysis? No Do you have any dermals or body piercing's? No or ? Do you wear an insulin pump or diabetic monitor? No No new tattoos AMBAR Crane documented in this encounter Plan of Treatment Upcoming Encounters Date Type Department Care Team (Late st Contact Info) Description 05/06/2024 8:45 AM EST Imaging Radiology [address] [place] [phone] 05/06/2024 8:45 AM EST Imaging Radiology [address] [place] [phone] 05/19/2024 9:45 AM EST Office Visit Neurosurgery, [facility] [address] [place] [address] Clinic, Brain Tumor Multidisciplinary [address] [place] [address] 05/20/2024 3:45 PM EST Pharmacy Pharmacy Hematology Oncology [address] [address] [facility], [facility] Clinic Hem/Onc [address] [place] [address] 05/29/2024 8:00 AM EST Telemedicine Genetics [place]c, [facility] [address] [place] [address] Brittany Tafoya, MS [address] [place] [address] 07/04/2024 11:00 AM EDT [facility] [address] Keon Stanton MD [address] [facility] [place] [address] Health Maintenance Due Date Last Done Comments [...] Additional history exists Lipid Panel 02/11/2029 02/12/2024, 020 11/2022, 11/14/2014 HPV (Gardasil) Vaccine Aged Out No lo nger eligible based on patient's age to complete this topic MENINGOCOCCAL (MENACTRA/MENVEO) Aged Out No longer eligible based on patient's age to complete this topic documented as of this encounter Medical Devices Implanted Type Area Dispatcher Clerk Device Identifier Shelf Expiration Date Model / Serial / Lot Cover Bur Hol Ti Lo 17 421.527 - [id number] Implanted:Qty: 1 on 01/22/2024 by Neo Lopez III, [place] [facility] [place]: Head SYNTHES MAXILLOFACIAL 421.527 / / Screw Ti Lo Pro Sd 4mm 400.834 - [id number] Implanted:Qty: 8 on 01/22/2024 by Neo Lopez III, [place] [facility] [place]: Head SYNTHES MAXILLOFACIAL 400.834 / / Cover Bur Hol 15mm 421.526 - [id number] Implanted:Qty: 1 on 01/22/2024 by Neo Lopez III, MD [place] [facility] Left: Head SYNTHES MAXILLOFACIAL 421.526 / / documented as of this encounter Advance Directives Documents on File Type Date Recorded Patient Size Painter Expl anation Power of Commercial Green Retrofit Architect 01/24/2024 signed on 01/21/2024 POWER OF SENIOR DRAFTER * Full Code (Latest Code Status on [...] Discussed due to patient's condition Care Teams Cost Accounting Analyst Relationship Specialty Start Date End Date Beverly Gonzales CRNP [address] [place] [address] PCP - General Nurse Practitioner 04/24/23 documented as of this encounter
--- OUTSIDE RECORDS SUMMARY | 2024-05-06 16:10 | External Medical Summary | Summary of Care ---
Author Name Unknown Organization [facility] Address [address] [facility] [place] [address] Phone [phone] Care Team Providers Care Sr. Director Name Role Phone Beverly Cabezas Primary Care Provider Reason for Visit * Reason Comments eRx-Medication Refill Encounter Details Date Type Department Care Team (Late st Contact Info) Description 04/27/[address] [facility] [address] [place] [address] Beverly Cabezas CRNP [address] [place] [address] Type 2 diabetes mellitus without complication, without long-term current use of insulin (HCC) Allergies No known active allergiesdocumented as of this encounter (statuses as of 04/29/2024) Medications BiPAP every night at bedtime . Active Ventolin HFA 108 (90 Base) MCG/ACT Inhalation Aerosol Solution Inhale 2 Puffs by mouth every 4 hours as needed for Cough, Shortness of Breath or Wheezing. 18 g 1 Active Additional Information Patient not taking.Reported on 01/22/2024 Acetaminophen 325 MG Oral Tablet (Tylenol) Take 3 Tablets by mouth every 6 hours as needed for Fever >38C(100.5F) or mild pain. 30 Tablet 01/23/20 24 3:38 PM EDT Active oxyCODONE HCl 5 MG Oral Tablet (Oxy IR) Take 1 Tablet by mouth every 4 hours as needed for moderate pain. 30 Tablet 01/23/20 24 3:38 PM EDT Active Additional Information Patient not taking.Reported on 02/04/2024 Docusate Sodium 100 MG Oral Capsule (Colace) Take 1 Capsule by mouth twice per day (morning, before bedtime). 10 Capsule 01/23/20 24 3:38 PM EDT Active Additional Information Patient not taking.Reported on 02/04/2024 Sennosides 8.6 MG Oral Tablet (Senokot) Take 2 Tablets by mouth in the morning. 10 Tablet 01/23/20 24 3:38 PM EDT Active Additional Information Patient not taking.Reported on 02/04/2024 Nicotine 14 MG/24HR Transdermal Patch 24 Hour (Nicoderm CQ) Place 1 Patch over 24 hours topically on the skin in the morning. For 28 days. 28 Patch Active Additional Information Patient not taking.Reported on 02/04/2024 Nicotine 7 MG/24HR Transdermal Patch 24 Hour (Nicoderm CQ) One 7 mg patch daily for 2 weeks; Remove old patch daily; and then stop. 30 Patch 1 Active Additional Information Patient not taking.Reported on 02/04/2024 metFORMIN HCl ER 500 MG Oral Tablet Extended Release 24 Hour (Glucophage XR) Take 2 tablets by mouth twice daily 120 Tablet 5 Active Famotidine 20 MG Oral Tablet (Pepcid)Indicat ions:Glioblasto ma multiforme (HCC),Gastroeso phageal reflux disease without esophagitis Take 1 Tablet by mouth in the morning and 1 Tablet before bedtime. 60 Tablet 5 Active dexAMETHasone 4 MG Oral Tablet (Decadron) Take 1 Tablet by mouth 2 times a day with morning and evening meals. Active Losartan Potassium-HCTZ 50-12.5 MG Oral Tablet (Hyzaar) TAKE 1 & 1/2 (ONE & ONE-HALF) TABLETS BY MOUTH IN THE MORNING 135 Tablet 3 Active Mounjaro 2.5 MG/0.5ML Subcutaneous Solution Auto-injector (Tirzepatide)In dications:Type 2 diabetes mellitus without complication, without long-term current use of insulin (HCC) INJECT 1 SYRINGE SUBCUTANEOUSLY ONCE A WEEK 4 mL 025 Active Mounjaro 2.5 MG/0.5ML Subcutaneous Solution Auto-injector (Tirzepatide)In dications:Type 2 diabetes mellitus without complication, without long-term current use of insulin (HCC) INJECT 1 SYRINGE SUBCUTANEOUSLY ONCE A WEEK 4 mL 1 024 2024 Discontinued documented as of this encounter (statuses as [...] hypoxemia, suboptimal titration from CPAP to BIPAP [facility] Hypersomnia 12/18/2014 documented as of this encounter [...] Date Smoking Tobacco: Former Cigarettes S tarted: 2018 Smokeless Tobacco: Current Snuff Alcohol Use Standard [...] 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 (5 years old or older) Answer Entry Date Author No 01/22/2024 4:47 PM Kirk Beckett RN documented in this encounter Miscellaneous Notes * Telephone Encounter - Beverly Cabezas CRNP - 04/28/2024 1:05 PM EST Signed Prescriptions: Disp Refills Mounjaro 2.5 MG/0.5ML Subcutaneous Solutio*4 mL 0 Sig: INJECT 1 SYRINGE SUBCUTANEOUSLY ONCE A WEEK Authorizing Provider: BEVERLY CABEZAS * Telephone Encounter - Sarah Matthews [facility] - 04/28/2024 1:04 PM ESTPending Prescriptions: Disp Refills Mounjaro 2.5 MG/0.5ML Subcutaneous Solutio*4 mL 0 Sig: INJECT 1 SYRINGE SUBCUTANEOUSLY ONCE A WEEK * Telephone Encounter - Sarah Matthews [facility] - 04/28/2024 12:55 PM EST Patient using Mounjaro for diabetes Most recent A1c 5.8 Patient currently on lowest dose. Please advise if you would like to keep at current dose or increase to next dose to aid in weight loss. Thank You, Sarah Matthews [facility] Clinical Pharmacist [facility] ([facility]) [phone] 04/28/2024, 1:04 PM documented in this encounter Plan of Treatment Upcoming Encounters Date Type Department Care Team (Late st Contact Info) Description 04/29/2024 11:30 AM EST Office Visit Hematology/Oncology [facility] [address] [facility] [place] [address] Keon Stanton MD [address] [facility] [place] [address] 05/06/2024 8:45 AM EST Imaging Radiology [address] [place] [phone] 05/06/2024 8:45 AM EST Imaging Radiology [address] [place] [phone] 05/19/2024 9:45 AM EST Office Visit Neurosurgery, [place] [address] [place] [address] Clinic, Brain Tumor Multidisciplinary [address] [place] [address] 05/20/2024 3:45 PM EST Pharmacy Pharmacy Hematology Oncology [facility] [address] [place] [address] [facility], [facility] Clinic Hem/Onc [address] [place] [address] 05/29/2024 8:00 AM EST Telemedicine Genetics HemOnc, [facility] [place] [place] [address] [place] [address] Brittany Tafoya, MS [address] [place] [address] Health Maintenance Due Date Last Done Comments [...] Albumin/Creatinine Ratio 05/04/2023 05/04/2022, 03/27 COVID-19 Vaccine (1 - season) 2023 Influenza Vaccine (FLU shot) (#1) [...] this encounter Medical Devices Implanted Type Area Metal Furniture Repairer Device Identifier Shelf Expiration Date Model / Serial / Lot Cover Bur Hol Ti Lo 17 421.527 - [id number] Implanted:Qty: 1 on 01/22/2024 by Neo Lopez III, MD at [place] [facility] [place] Left: Head SYNTHES MAXILLOFACIAL 421.527 / / Screw Ti Lo Pro Sd 4mm 400.834 - [id number] Implanted:Qty: 8 on 01/22/2024 by Neo Lopez III, MD at [place] [facility] [place] Left: Head SYNTHES MAXILLOFACIAL 400.834 / / Cover Bur Hol 15mm 421.526 - [id number] Implanted:Qty: 1 on 01/22/2024 by Neo Lopez III, MD at [place] [facility] [place] Left: Head SYNTHES MAXILLOFACIAL 421.526 / / documented as of this encounter Visit Diagnoses Diagnosis Type 2 diabetes mellitus without complication, without long-term current use of insulin (HCC) documented in this encounter Advance Directives Documents on File Type Date Recorded Patient Chief Of Police Expl anation Power of Entry Level Installation Technician 01/24/2024 signed on 01/21/2024 POWER OF CASTING TRUCKER * Full Code (Latest Code Status on [...] Discussed due to patient's condition Care Teams Sr. Director Relationship Specialty Start Date End Date Beverly Cabezas CRNP [address] [place] [address] PCP - General Nurse Practitioner 04/24/23 documented as of this encounter
--- OUTSIDE RECORDS SUMMARY | 2024-05-06 16:11 | External Medical Summary | Summary of Care ---
Author Name Unknown Organization [facility] Address [address] [facility] [address] Phone [phone] Care Team Providers Care Credit Card Specialist Name Role Phone Beverly Gonzaleslle DON Primary Care Provider Reason for Visit * Reason Onset Date Comments Medication Question 04/28/2024 Encounter Details Date Type Department Care Team (Late st Contact Info) Description 04/28/2024 Telephone Hematology/Oncology [facility] [address] [facility] [place] [address] Keon Stanton MD [address] [facility] [address] Medication Question Allergies No known active allergiesdocumented as of this encounter (statuses as of 04/28/2024) Medications BiPAP every night at bedtime . Active Ventolin HFA 108 (90 Base) MCG/ACT Inhalation Aerosol Solution Inhale 2 Puffs by mouth every 4 hours as needed for Cough, Shortness of Breath or Wheezing. 18 g 1 024 Active Additional Information Patient not taking.Reported on 01/22/2024 Acetaminophen 325 MG Oral Tablet (Tylenol) Take 3 Tablets by mouth every 6 hours as needed for Fever >38C(100.5F) or mild pain. 30 Tablet 01/23/20 24 3:38 PM EDT 024 Active oxyCODONE HCl 5 MG Oral Tablet [...] as of this encounter (statuses as of 04/28/2024) Active Problems Problem Noted Date Diagnosed Date [...] hypoxemia, suboptimal titration from CPAP to BIPAP [facility] Hypersomnia 12/18/2014 documented as of this encounter (statuses as of 04/28/2024) Resolved Problems Problem Noted Date Diagnosed Date Resolved Date Body mass index (BMI) of 45. 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 Per OCC Rph, patient has MDC and OV with provider tomorrow and that we will know more at that time;however, they should extend his auth as patient finished concomitant phase and is likely going to get adjuvant treatment. Provided information and was told that they will nba back on Sunday to confirm OCC direct line number provided for call back. ELY Pa Floating Labor Gang Supervisor Pharmacy Hematology Oncology Oral Chemotherapy Clinic Medication Therapy Disease Management [facility] 04/28/24 8:50 AM Time Spent on Encounter: 6 - 10 minutes documented in this encounter Plan of Treatment Upcoming Encounters Date Type Department Care Team (Late st Contact Info) Description 04/29/2024 11:30 AM EST Office Visit Hematology/Oncology [facility] 200 [facility] [place] [address] Keon Stanton MD [address] [facility] [place] [address] 05/06/2024 8:45 AM EST Imaging Radiology [address] [place] [address] 05/06/2024 8:45 AM EST Imaging Radiology [address] [place] [address] 05/19/2024 9:45 AM EST Office Visit Neurosurgery, [address] [address] Clinic, Brain Tumor Multidisciplinary [facility] [place] [address] 05/20/2024 3:45 PM EST Pharmacy Pharmacy Hematology Oncology [facility] [place] [address] [place] [address] [facility] Hem/Onc [address] [place] [address] 05/29/2024 8:00 AM EST Telemedicine Genetics HemOnc, [facility] [address] [place] [address] Brittany Tafoya, MS [address] [place] [address] Health Maintenance Due Date Last Done Comments [...] Ratio 05/04/2023 05/04/2022, 03/27 COVID-19 Vaccine ( - season) 2023 Influenza Vaccine (FLU shot) [...] this encounter Medical Devices Implanted Type Area Director Of Hotel Operations Device Identifier Shelf Expiration Date Model / Serial / Lot Cover Bur Hol Ti Lo 17 421.527 - [id number] Implanted:Qty: 1 on 01/22/2024 by Neo Lopez III, MD at [place] [facility] [facility] Left: Head SYNTHES MAXILLOFACIAL 421.527 / / Screw Ti Lo Pro Sd 4mm 400.834 - [id number] Implanted:Qty: 8 on 01/22/2024 by Neo Lopez III, MD at [place] [facility] [facility] Left: Head SYNTHES MAXILLOFACIAL 400.834 / / Cover Bur Hol 15mm 421.526 - [id number] Implanted:Qty: 1 on 01/22/2024 by Neo Lopez III, MD at [place] [facility] Left: Head SYNTHES MAXILLOFACIAL 421.526 / / documented as of this encounter Advance Directives Documents on File Type Date Recorded Patient Referral And Information Aide Expl anation Power of Local Telephone Operator 01/24/2024 signed on 01/21/2024 POWER OF LADIES SUIT OPERATOR * Full Code (Latest Code Status on [...] Discussed due to patient's condition Care Teams Credit Card Specialist Relationship Specialty Start Date End Date Beverly Gonzales CRNP [address] [place] [address] PCP - General Nurse Practitioner 04/24/23 documented as of this encounter
--- OUTSIDE RECORDS SUMMARY | 2024-05-06 16:11 | External Medical Summary | Summary of Care ---
Author Name Unknown Organization [facility] Address [address] [place] [address] Phone [phone] Care Team Providers Care Combination Machine Tool Setter Name Role Phone Beverly Gonzaleslle DON Primary Care Provider Reason for Visit * Reason Onset Date Comments Medical Records Request 04/21/2024 Encounter Details Date Type Department Care Team (Late st Contact Info) Description 04/21/2024 Telephone Hematology/Oncology [facility] [place] [address] [place] [address] Services, Scheduling [address] [place] [address] Medical Records Request Allergies No known active allergiesdocumented as of this encounter (statuses as of 04/24/2024) Medications BiPAP every night at bedtime . [...] 30 Tablet 4 3:38 PM EDT 01/23/20 Active oxyCODONE HCl 5 MG Oral Tablet (Oxy IR) Take 1 Tablet by mouth every 4 hours as needed for moderate pain. 30 Tablet 4 3:38 PM EDT 01/23/20 24 Active Additional Information Patient not taking.Reported on 02/04/2024 Docusate Sodium 100 MG Oral Capsule (Colace) Take 1 Capsule by mouth twice per day (morning, before bedtime). 10 Capsule 4 3:38 PM EDT 01/23/20 Active Additional Information Patient not taking.Reported on [...] morning. For 28 days. 28 Patch 01/30/20 Active Additional Information Patient not taking.Reported on 02/04/2024 Nicotine 7 MG/24HR Transdermal Patch 24 Hour (Nicoderm CQ) One 7 mg patch daily for 2 weeks; Remove old patch daily; and then stop. 30 Patch 1 01/30/20 Active Additional Information Patient not taking.Reported on [...] bedtime. 60 Tablet 5 03/05/20 24 Active Mounjaro 2.5 MG/0.5ML Subcutaneous Solution Auto-injector (Tirzepatide)Ind ications:Type 2 diabetes mellitus without complication, without long-term current use of insulin (HCC) INJECT 1 SYRINGE SUBCUTANEOUSLY ONCE A WEEK 4 mL 1 03/10/20 24 Active dexAMETHasone 4 MG Oral Tablet (Decadron) Take 1 Tablet by mouth 2 times a day with morning and evening meals. Active Losartan Potassium-HCTZ 50-12.5 MG Oral Tablet (Hyzaar) TAKE 1 & 1/2 (ONE & ONE-HALF) TABLETS BY MOUTH IN THE MORNING 135 Tablet 3 03/20/20 24 Active documented as of this encounter (statuses as of 04/24/2024) Active Problems Problem Noted Date Diagnosed Date [...] hypoxemia, suboptimal titration from CPAP to BIPAP [facility] Hypersomnia 12/18/2014 documented as of this encounter (statuses as of 04/24/2024) Resolved Problems Problem Noted Date Diagnosed Date [...] as of this encounter (statuses as of 04/24/2024) Immunizations Name Administration Dates Next Due TDAP [...] 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 Per office visit 03/11, patient to return to see MD in 4-6 weeks. Scheduling: please call patient to schedule follow up with Dr Stanton. Thanks! * Telephone Encounter - Awa Can OSA - 04/24/2024 9:49 AM EST Ana calling back states she is from the insurance, auth expires tomorrow needs updated ov notesand if he is continuing on the temodar after treatments. * Telephone Encounter - Coco Aleman RN - 04/21/2024 10:39 AM EST Unsure who this is (is this with insurance?)- no call back number. * Telephone Encounter - Zahida Camacho OSA - 04/21/2024 10:26 AM EST Ana in medication management requesting updated treatment plan. Ana fax [phone] Thanks! documented in this encounter Plan of Treatment Upcoming Encounters Date Type Department Care Team (Late st Contact Info) Description 04/29/2024 11:30 AM EST Office Visit Hematology/Oncology [facility] [address] [place] [phone] Keon Stanton MD 200 [facility] [place] [address] 05/06/2024 8:45 AM EST Imaging Radiology [address] [place] [phone] 05/06/2024 8:45 AM EST Imaging Radiology [address] [place] [phone] 05/19/2024 9:45 AM EST Office Visit Neurosurgery, [place] [address] [place] [address] Clinic, Brain Tumor Multidisciplinary [address] [place] [address] 05/20/2024 3:45 PM EST Pharmacy Pharmacy Hematology Oncology [facility] [address] [place] [address] [facility], [facility] Clinic Hem/Onc [address] [place] [address] 05/29/2024 8:00 AM EST Telemedicine Genetics HemOnc, [facility] [address] [place] [address] Brittany Tafoya, MS [address] [place] [address] Health Maintenance Due Date Last Done Comments [...] of 2) 2022 Albumin/Creatinine Ratio 05/04/2023 05/04/2022, 01/2 03/2021 COVID-19 Vaccine ( season) 2023 Influenza Vaccine [...] this encounter Medical Devices Implanted Type Area Advanced Manufacturing Associate Device Identifier Shelf Expiration Date Model / Serial / Lot Cover Bur Hol Ti Lo 17 421.527 - [id number] Implanted:Qty: 1 on 01/22/2024 by Neo Lopez III, MD at OR [facility] Left: Head SYNTHES MAXILLOFACIAL 421.527 / / Screw Ti Lo Pro Sd 4mm 400.834 - [id number] Implanted:Qty: 8 on 01/22/2024 by Neo Lopez III, MD at OR [facility] Left: Head SYNTHES MAXILLOFACIAL 400.834 / / Cover Bur Hol 15mm 421.526 - [id number] Implanted:Qty: 1 on 01/22/2024 by Neo Lopez III, MD at OR [facility] Left: Head SYNTHES MAXILLOFACIAL 421.526 / / documented as of this encounter Advance Directives Documents on File Type Date Recorded Patient [employer] Dean Expl anation Power of Shot Tube Machine Tender 01/24/2024 signed on 01/21/2024 POWER OF DRINK MIXER * Full Code (Latest Code Status on [...] Discussed due to patient's condition Care Teams Combination Machine Tool Setter Relationship Specialty Start Date End Date Beverly Gonzales CRNP [address] [address] PCP - General Nurse Practitioner 04/24/23 documented as of this encounter
--- OUTSIDE RECORDS SUMMARY | 2024-05-06 16:11 | External Medical Summary | Summary of Care ---
Author Name Unknown Organization [facility] Address [address] [place] [address] Phone [phone] Care Team Providers Care Multiple Drum Sander Name Role Phone Beverly Gonzales Aurora OCHOA Primary Care Provider Reason for Visit * Reason Comments Medication Management Encounter Details Date Type Department Care Team (Late st Contact Info) Description 04/10/2024 3:30 PM [facility] Pharmacy Pharmacy Hematology Oncology [facility] [address] [place] [address] [facility], [facility] Hem/Onc [address] [place], [place] [id number] Glioblastoma multiforme (HCC)* Allergies No known active allergiesdocumented as of this encounter (statuses as of 04/10/2024) Medications BiPAP every night at bedtime . [...] 30 Tablet 01/23/20 24 3:38 PM EDT 10/30/2 024 Active Additional Information Patient not taking.Reported [...] Tablet before bedtime. 60 Tablet 5 Active Mounjaro 2.5 MG/0.5ML Subcutaneous Solution Auto-injector (Tirzepatide)In dications:Type 2 diabetes mellitus without complication, without long-term current use of insulin (HCC) INJECT 1 SYRINGE SUBCUTANEOUSLY ONCE A WEEK 4 mL 1 Active dexAMETHasone 4 MG Oral Tablet (Decadron) Take 1 Tablet by mouth 2 times a day with morning and evening meals. Active Losartan Potassium-HCTZ 50-12.5 MG Oral Tablet (Hyzaar) TAKE 1 & 1/2 (ONE & ONE-HALF) TABLETS BY MOUTH IN THE MORNING 135 Tablet 3 Active Ondansetron HCl 8 MG Oral Tablet (Zofran)Indicat ions:Glioblasto ma multiforme (HCC) Take 1 Tablet by mouth every 8 hours as needed for Nausea. 60 Tablet 024 2024 Discontinued Temozolomide 180 MG Oral Capsule (Temodar)Indica tions:Glioblast zoltan multiforme (HCC) Take 1 Capsule by mouth in the morning. 1 hour before radiation treatment and at the same time on non radiation days. Take medication on empty stomach.. 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 Answer Date of Assessment Author No 01/22/2024 4:47 PM Servando Beckett RN * Are you blind or do you have serious difficulty seeing, even when wearing glasses? Answer Date of Assessment Author No 01/22/2024 4:47 PM Servando Beckett RN * Do you have serious difficulty walking or climbing stairs? (5 years old or older) Answer Date of Assessment Author No 01/22/2024 4:47 PM Servando Beckett RN * Do you have difficulty [...] of Assessment Author No 01/22/2024 4:47 PM Servando Beckett RN documented as of this encounter Mental Status * Because of a physical, mental, or emotional condition, do you have serious difficulty concentrating, remembering, or making decisions? (5 years old or older) Answer Entry Date Author No 01/22/2024 4:47 PM Servando Beckett RN documented in this encounter Progress Notes * Georgette Robles, [facility] - 04/10/2024 12:44 PM EST MEDICATION THERAPY MANAGEMENT TEMOZOLOMIDE TREATMENT PROGRESS NOTE Mariano Guillen [phone] Patient Phone Numbers Preferred Lab: [facility] Specialty Pharmacy: [facility] Treatment consent complete: yes Date: 02/07/24 Precertification complete: yes Date: 02/13/24 Patient has given verbal consent that staff from the [facility] can speak to Grace Guillen [phone] regarding their treatment. Patient has given verbal consent that staff from the [facility] can leave a voicemailwith treatment-related information: Yes This information can be left on Cell Communication: Spoke to: Patient Treatment: Medication: Temozolomide (Temodar) Indication/Staging/Diagnosis Code: GBM / C71.9 Dose Basis: 75mg/m2 (BSA 2.31m2) Dose: 180mg daily x 6 weeks Administration: 1 hour prior to RT and around the same time on non-radiation days Start Date: 02/27/2024 Primary Manager Image/Oncologist: Dr. Shakira Stanton Additional Therapy: RT @[facility] Supportive Care Meds: Ondansetron Docusate Senokot Prophylactic Meds: Consider PJP ppx for ALC< 0.5 Relevant Chronic Medications: Category Medications Pertinent Notes Antihypertensives Losartan/HCTZ 50/12.5mg daily Per PCP Antidiabetic Tirzepatide Metformin ER 1000mg BID Per PCP Interval History: N/A Changes to medication list since last visit? No Upcoming surgeries or procedures? No Assessment and plan: Reviewed 04/09 [address] [facility]: WBC 11.45 (H) Hgb 15.7 PLT 188K ANC 9.70 (H) ALC 0.72 - PJP ppx not indicated CMP stable Continue temozolomide and weekly labs COT 04/10 Pt has already finished temodar 2 days ago (due to holidays that RT was not given) Discontinued beacon plan and associated orders Will f/u after 05/19 [facility] for adjuvant tx plans Assessment of compliance: compliant Assessment of adverse effects attributed to drug therapy: N/A Dose adjustment needed based on lab or adverse drug reaction? No Follow up: 05/20 Georgette Robles, PharmD, BCOP Ambulatory Clinical Pharmacist | Oral Chemotherapy [facility] 04/10/2024, 12:52 PM Monitoring Parameters: Estimated CrCl Serum creatinine: 0.83 mg/dL 04/09/24 0000 Estimated creatinine clearance: 128.8 mL/min Hepatitis panel 02/12/24 - negative, not immune test N/a Suggested lab monitoring Suggested labs: CBCd and CMP Treatment Parameters Parameters to be met: PLTS >= 100 Hgb >= 10 ANC >= 1.5 ALC >= 0.5 LFTs within normal range hold if >3 times upper limit normal Pertinent Labs: see media documented in this encounter Plan of Treatment Upcoming Encounters Date Type Department Care Team (Late st Contact Info) Description 05/06/2024 8:45 AM EST Imaging Radiology [address] [place] [phone] 05/06/2024 8:45 AM EST Imaging Radiology [address] [place] [phone] 05/19/2024 9:45 AM EST Office [facility] [place] [facility] [address] Clinic, Brain Tumor Multidisciplinary [facility] [place] [address] 05/20/2024 3:45 PM EST Pharmacy Pharmacy Hematology Oncology [facility] [place] [address] [place] [address] [facility], [facility] Hem/Onc [address] [place] [address] 05/29/2024 8:00 AM EST Telemedicine Genetics HemOnc, [facility] [address] [place] [address] Brittany Tafoya, MS [address] [facility] [address] Health Maintenance Due Date Last Done Comments COVID-19 Vaccine (#1) 1977 HIV Screening 12/22/1987 Diabetic Eye Exam 1990 Diabetic Foot Exam 1990 Hepatitis C Screening 1990 Hepatitis B Vaccine (1 of 3 - 19+ 3-dose series) 12/22/1991 Pneumococcal Vaccine: 50+ Years (1 of 2 - PCV) 12/22/1991 Zoster Vaccines (1 of 2) 12/22/1991 Cologuard 2017 Colonoscopy 2017 Colorectal Cancer Screening 2017 Fecal Occult Blood Test 2017 Sigmoidoscopy 2017 Depression Screening 06/14/2019 06/13/2018 Albumin/Creatinine Ratio 05/04/2023 05/04/2022, 03/27 Influenza Vaccine (FLU shot) (#1) 2023 HbA1c [...] this encounter Medical Devices Implanted Type Area Health And Safety Director Device Identifier Shelf Expiration Date Model / Serial / Lot Cover Bur Hol Ti Lo 17 421.527 - [id number] Implanted:Qty: 1 on 01/22/2024 by Neo Lopez III, MD at OR [facility] Left: Head SYNTHES MAXILLOFACIAL 421.527 / / Screw Ti Lo Pro Sd 4mm 400.834 - [id number] Implanted:Qty: 8 on 01/22/2024 by Neo Lopez III, MD at OR [facility] Left: Head SYNTHES MAXILLOFACIAL 400.834 / / Cover Bur Hol 15mm 421.526 - [id number] Implanted:Qty: 1 on 01/22/2024 by Neo Lopez III, MD at OR [facility] Left: Head SYNTHES MAXILLOFACIAL 421.526 / / documented as of this encounter Visit Diagnoses Diagnosis Glioblastoma multiforme (HCC)- Primary Malignant neoplasm of brain, unspecified site documented in this encounter Advance Directives Documents on File Type Date Recorded Patient Detention Deputy Expl anation Power of Tractor Trailer Technician 01/24/2024 signed on 01/21/2024 POWER OF SKILLED NURSING PROFESSIONAL * Full Code (Latest Code Status on [...] Discussed due to patient's condition Care Teams Multiple Drum Sander Relationship Specialty Start Date End Date Beverly Gonzales CRNP [address] [place] [address] PCP - General Nurse Practitioner 04/24/23 documented as of this encounter"
--- OUTSIDE RECORDS SUMMARY | 2024-05-06 16:11 | External Medical Summary | Summary of Care ---
Author Name Unknown Organization [facility] Address [address] [place] [address] Phone [phone] Care Team Providers Care White Hat Hacker Name Role Phone Beverly Gonzaleslle DON Primary Care Provider Reason for Visit * Reason Onset Date Comments Medical Records Request 04/21/2024 Encounter Details Date Type Department Care Team (Late st Contact Info) Description 04/21/2024 Telephone Hematology/Oncology [facility] [place] [address] [place] [address] Services, Scheduling [address] [place] [address] Medical Records Request Allergies No known active [...] hypoxemia, suboptimal titration from CPAP to BIPAP [facility] Hypersomnia 12/18/2014 documented as of this [...] 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 Ana fax [phone] Thanks! documented in this encounter Plan of Treatment Upcoming Encounters Date Type Department Care Team (Late st Contact Info) Description 04/29/2024 11:30 AM EST Office Visit Hematology/Oncology [facility] [address] [place] [address] [phone] Keon Stanton MD 200 [facility] [place] [address] 05/06/2024 8:45 AM EST Imaging Radiology [address] [place] [phone] 05/06/2024 8:45 AM EST Imaging Radiology [address] [place] [phone] 05/19/2024 9:45 AM EST Office Visit Neurosurgery, [place] [address] [place] [address] Clinic, Brain Tumor Multidisciplinary [address] [place] [address] 05/20/2024 3:45 PM EST Pharmacy Pharmacy Hematology Oncology [facility] [address] [place] [address] [facility], [facility] Clinic Hem/Onc [address] [place] [address] 05/29/2024 8:00 AM EST Telemedicine Genetics HemOnc, [facility] [address] [place] [address] Brittany Tafoya, MS [address] [place] [address] Health Maintenance Due Date Last Done Comments [...] this encounter Medical Devices Implanted Type Area Consultant Electronics Device Identifier Shelf Expiration Date Model / Serial / Lot Cover Bur Hol Ti Lo 17 421.527 - [id number] Implanted:Qty: 1 on 01/22/2024 by Neo Lopez III, MD at [place] [facility] Left: Head SYNTHES MAXILLOFACIAL 421.527 / / Screw Ti Lo Pro Sd 4mm 400.834 - [id number] Implanted:Qty: 8 on 01/22/2024 by Neo Lopez III, MD at OR [facility] Left: Head SYNTHES MAXILLOFACIAL 400.834 / / Cover Bur Hol 15mm 421.526 - [id number] Implanted:Qty: 1 on 01/22/2024 by Neo Lopez III, MD at OR [facility] Left: Head SYNTHES MAXILLOFACIAL 421.526 / / documented as of this encounter Advance Directives Documents on File Type Date Recorded Patient Directory Operator Expl anation Power of Practical Ministries Professor 01/24/2024 signed on 01/21/2024 POWER OF PRODUCTION SORTER * Full Code (Latest Code Status on [...] Discussed due to patient's condition Care Teams White Hat Hacker Relationship Specialty Start Date End Date Beverly Gonzales CRNP [address] [place] [address] PCP - General Nurse Practitioner 04/24/23 documented as of this encounter
--- OUTSIDE RECORDS SUMMARY | 2024-05-06 16:11 | External Medical Summary | Summary of Care ---
Author Name Unknown Organization [facility] Address [address] [place] [address] Phone [phone] Care Team Providers Care Routing Equipment Tender Name Role Phone Beverly Gonzaleslle DON Primary Care Provider Reason for Visit * Reason Onset Date Comments Medical Records Request 04/21/2024 Encounter Details Date Type Department Care Team (Late st Contact Info) Description 04/21/2024 Telephone Hematology/Oncology [facility] [place] [address] [place] [address] Services, Scheduling [address] [place] [address] Medical Records Request Allergies No known active allergiesdocumented as of this encounter (statuses as of 04/21/2024) Medications BiPAP every night at bedtime . [...] Tablet before bedtime. 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 * Telephone Encounter - Zahida Camacho OSA - 04/21/2024 10:26 AM EST Ana in medication management requesting updated treatment plan. Ana fax [phone] Thanks! documented in this encounter Plan of Treatment Upcoming Encounters Date Type Department Care Team (Late st Contact Info) Description 05/06/2024 8:45 AM EST Imaging Radiology [address] [place] [address] 05/06/2024 8:45 AM EST Imaging Radiology [address] [place] [phone] 05/19/2024 9:45 AM EST Office Visit Neurosurgery, [place] [address] [place] [address] Clinic, Brain Tumor Multidisciplinary [address] [place] [address] 05/20/2024 3:45 PM EST Pharmacy Pharmacy Hematology Oncology [facility] [address] [place] [address] [facility], [facility] Clinic Hem/Onc [address] [place] [address] 05/29/2024 8:00 AM EST Telemedicine Genetics HemOnc, [facility] [address] [place] [address] Brittany Tafoya, MS [address] [place] [address] Health Maintenance Due Date Last Done Comments [...] Additional history exists Lipid Panel 02/11/2029 02/12/2024, 02/0 11/2022, 11/14/2014 HPV (Gardasil) Vaccine Aged Out No lo nger eligible based on patient's age to complete this topic MENINGOCOCCAL (MENACTRA/MENVEO) Aged Out No longer eligible based on patient's age to complete this topic documented as of this encounter Medical Devices Implanted Type Area Material Flow Engineer Device Identifier Shelf Expiration Date Model / Serial / Lot Cover Bur Hol Ti Lo 17 421.527 - [id number] Implanted:Qty: 1 on 01/22/2024 by Neo Lopez III, MD at OR [facility] Left: Head SYNTHES MAXILLOFACIAL 421.527 / / Screw Ti Lo Pro Sd 4mm 400.834 - [id number] Implanted:Qty: 8 on 01/22/2024 by Neo Lopez III, MD at OR [facility] Left: Head SYNTHES MAXILLOFACIAL 400.834 / / Cover Bur Hol 15mm 421.526 - [id number] Implanted:Qty: 1 on 01/22/2024 by Neo Lopez III, MD at OR [facility] Left: Head SYNTHES MAXILLOFACIAL 421.526 / / documented as of this encounter Advance Directives Documents on File Type Date Recorded Patient French Past[employer] Cook Expl anation Power of Deployment Engineer 01/24/2024 signed on 01/21/2024 POWER OF PHARMACOGENETICIST * Full Code (Latest Code Status on [...] Discussed due to patient's condition Care Teams Routing Equipment Tender Relationship Specialty Start Date End Date Beverly Gonzales CRNP [address] [place] [address] PCP - General Nurse Practitioner 04/24/23 documented as of this encounter
--- OUTSIDE RECORDS SUMMARY | 2024-05-06 16:11 | External Medical Summary | Summary of Care ---
Author Name Unknown Organization [facility] Address [address] [place] [address] Phone [phone] Care Team Providers Care Ball Ender Name Role Phone Beverly Gonzaleslle DON Primary Care Provider Reason for Visit * Reason Onset Date Comments Medical Records Request 04/21/2024 Encounter Details Date Type Department Care Team (Late st Contact Info) Description 04/21/2024 Telephone Hematology/Oncology [facility] [place] [address] [place] [address] Services, Scheduling [address] [place] [address] Medical Records Request Allergies No known active [...] hypoxemia, suboptimal titration from CPAP to BIPAP [facility] Hypersomnia 12/18/2014 documented as of this encounter [...] 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 Ana fax [phone] Thanks! documented in this encounter Plan of Treatment Upcoming Encounters Date Type Department Care Team (Late st Contact Info) Description 05/06/2024 8:45 AM EST Imaging Radiology [address] [facility] [place] [address] 05/06/2024 8:45 AM EST Imaging Radiology [address] [facility] [place] [phone] 05/19/2024 9:45 AM EST Office Visit Neurosurgery, [place] [address] [place] [address] Clinic, Brain Tumor Multidisciplinary [address] [place] [address] 05/20/2024 3:45 PM EST Pharmacy Pharmacy Hematology Oncology [facility] [address] [place] [address] [facility] [place], [facility] Hem/Onc [address] [place] [address] 05/29/2024 8:00 AM EST Telemedicine Genetics Hem[place]c, [facility] [address] [place] [address] Brittany Tafoya, MS [address] [facility] [place] [address] Health Maintenance Due Date Last Done Comments [...] this encounter Medical Devices Implanted Type Area Clinic Specialist Device Identifier Shelf Expiration Date Model / Serial / Lot Cover Bur Hol Ti Lo 17 421.527 - [id number] Implanted:Qty: 1 on 01/22/2024 by Neo Lopez III, [place] [facility] Left: Head SYNTHES MAXILLOFACIAL 421.527 / / Screw Ti Lo Pro Sd 4mm 400.834 - [id number] Implanted:Qty: 8 on 01/22/2024 by Neo Lopez III, MD [place] [facility] Left: Head SYNTHES MAXILLOFACIAL 400.834 / / Cover Bur Hol 15mm 421.526 - [id number] Implanted:Qty: 1 on 01/22/2024 by Neo Lopez III, MD [place] [facility] Left: Head SYNTHES MAXILLOFACIAL 421.526 / / documented as of this encounter Advance Directives Documents on File Type Date Recorded Patient Fiction And Nonfiction Writer Prose Expl anation Power of Dj Instructor 01/24/2024 signed on 01/21/2024 POWER OF APARTMENT LEASING CONSULTANT * Full Code (Latest Code Status on [...] Discussed due to patient's condition Care Teams Ball Ender Relationship Specialty Start Date End Date Beverly Gonzales CRNP [address] [place] [address] PCP - General Nurse Practitioner 04/24/23 documented as of this encounter
--- OUTSIDE RECORDS SUMMARY | 2024-05-06 16:11 | External Medical Summary | Summary of Care ---
Author Name Unknown Organization [facility] Address [address] [place] [address] Phone [phone] Care Team Providers Care Shot Polisher And Inspector Name Role Phone Beverly Gonzaleslle DON Primary Care Provider Reason for Visit * Reason Onset Date Comments Medical Records Request 04/21/2024 Encounter Details Date Type Department Care Team (Late st Contact Info) Description 04/21/2024 Telephone Hematology/Oncology [facility] [place] [address] [place] [address] Services, Scheduling [address] [place] [address] Medical Records Request Allergies No known active [...] hypoxemia, suboptimal titration from CPAP to BIPAP [facility] Hypersomnia 12/18/2014 documented as of this [...] 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 Ana fax [phone] Thanks! documented in this encounter Plan of Treatment Upcoming Encounters Date Type Department Care Team (Late st Contact Info) Description 04/29/2024 11:30 AM EST Office Visit Hematology/Oncology [facility] [address] [place] [address] [place] [phone] Keon Stanton MD 200 [facility] [place] [address] 05/06/2024 8:45 AM EST Imaging Radiology [address] [place] [phone] 05/06/2024 8:45 AM EST Imaging Radiology [address] [place] [phone] 05/19/2024 9:45 AM EST Office Visit Neurosurgery, [place] [address] [place] [address] Clinic, Brain Tumor Multidisciplinary [address] [place] [address] 05/20/2024 3:45 PM EST Pharmacy Pharmacy Hematology Oncology [facility] [address] [place] [address] [facility] [facility] Hem/Onc [address] [place] [address] 05/29/2024 8:00 AM EST Telemedicine Genetics Hem[place]c, [facility] [address] [place] [address] Brittany Tafoya, MS [address] [place] [address] Health Maintenance Due Date Last Done Comments [...] this encounter Medical Devices Implanted Type Area Actuarial Trainee Device Identifier Shelf Expiration Date Model / Serial / Lot Cover Bur Hol Ti Lo 17 421.527 - [id number] Implanted:Qty: 1 on 01/22/2024 by Neo Lopez III, [place] [facility]: Head SYNTHES MAXILLOFACIAL 421.527 / / Screw Ti Lo Pro Sd 4mm 400.834 - [id number] Implanted:Qty: 8 on 01/22/2024 by Neo Lopez III, MD [place] [facility] Left: Head SYNTHES MAXILLOFACIAL 400.834 / / Cover Bur Hol 15mm 421.526 - [id number] Implanted:Qty: 1 on 01/22/2024 by Neo Lopez III, MD [place] [facility] Left: Head SYNTHES MAXILLOFACIAL 421.526 / / documented as of this encounter Advance Directives Documents on File Type Date Recorded Patient Feather Boner Expl anation Power of Laboratory Cureman 01/24/2024 signed on 01/21/2024 POWER OF WOODWIND INSTRUMENTS INSPECTOR * Full Code (Latest Code Status on [...] Discussed due to patient's condition Care Teams Shot Polisher And Inspector Relationship Specialty Start Date End Date Beverly Gonzales CRNP [address] [place] [address] PCP - General Nurse Practitioner 04/24/23 documented as of this encounter
--- OUTSIDE RECORDS SUMMARY | 2024-05-06 16:12 | External Medical Summary | Summary of Care ---
Author Name Unknown Organization [facility] Address [address] [facility] [place] [address] Phone [phone] Care Team Providers Care Senior Cytotechnologist Name Role Phone Beverly Gonzales DON Primary Care Provider Reason for Visit * Reason Comments Medication Refill Encounter Details Date Type Department Care Team (Late st Contact Info) Description 03/21/2024 Refill Hematology/Oncology [facility] [place] [facility] [place] [address] Keon Stanton MD [address] [facility] [place] [address] Glioblastoma multiforme (HCC) Allergies No known active allergiesdocumented as of this encounter (statuses as of 03/24/2024) Medications BiPAP every night at bedtime . [...] Tablet 4 3:38 PM EDT 01/23/20 Active Additional [...] Additional Information Patient not taking.Reported on 02/04/2024 Ondansetron HCl 8 MG Oral Tablet (Zofran)Indicati ons:Glioblastoma multiforme (HCC) Take 1 Tablet by mouth every 8 hours as needed for Nausea. 60 Tablet 02/13/20 24 Active Temozolomide 180 MG Oral Capsule (Temodar)Indicat ions:Glioblastom a multiforme (HCC) Take 1 Capsule by mouth in the morning. 1 hour before radiation treatment and at the same time on non radiation days. Take medication on empty stomach.. 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 Answer Date of Assessment Author No 01/22/2024 4:47 PM TYLORT Kirk Myers RN * Are you blind or do you have serious difficulty seeing, even when wearing glasses? Answer Date of Assessment Author No 01/22/2024 4:47 PM TYLORT Kirk Myers RN * Do you have serious difficulty [...] Assessment Author No 01/22/2024 4:47 PM EDT Kirk Myers RN documented as of this encounter Mental Status * Because of a physical, mental, or emotional condition, do you have serious difficulty concentrating, remembering, or making decisions? (5 years old or older) Answer Entry Date Author No 01/22/2024 4:47 PM EDT Kirk Myers RN documented in this encounter Miscellaneous Notes * Telephone Encounter - Mel Parekh RPh - 03/24/2024 1:36 PM EST First RX was sent for 42 days supply. Did not approve temozolomide refill at this time. Mel Parekh PharmD Ambulatory Clinical Pharmacist | Oral Chemotherapy Clinic [facility] 03/24/2024, 1:37 PM documented in this encounter Plan of Treatment Upcoming Encounters Date Type Department Care Team (Late st Contact Info) Description 03/27/2024 3:30 PM EST Pharmacy Pharmacy Hematology Oncology [facility] [address] [place] [address] [facility], [facility] Hem/Onc [address] [place] [address] 05/06/2024 8:45 AM EST Imaging Radiology [address] [place] [address] 05/06/2024 8:45 AM EST Imaging Radiology [address] [employer] [place] [address] 05/19/2024 9:45 AM EST Office Visit Neurosurgery, [place] [address] [place] [address] Clinic, Brain Tumor Multidisciplinary [address] [place] [address] 05/29/2024 8:00 AM EST Telemedicine Genetics HemOnc, [facility] [address] [place] [address] Brittany Tafoya, MS [address] [place] [address] Health Maintenance Due Date Last Done Comments [...] (FLU shot) (#1) 2023 HbA1c 08/11/2024 02/12/2024, 1108/2023, 02/26/2023, Additional history exists DTap/Tdap Vaccines (2 - Td or Tdap) 11/14/2024 11/14/2014 GFR 03/12/2025 03/12/2024, 12/0 06/2023, 02/12/2024, Additional history exists Lipid Panel 02/11/2029 02/12/2024, 02/0 11/2022, 11/14/2014 HPV (Gardasil) Vaccine Aged Out No lo nger eligible based on patient's age to complete this topic MENINGOCOCCAL (MENACTRA/MENVEO) Aged Out No longer eligible based on patient's age to complete this topic documented as of this encounter Medical Devices Implanted Type Area Taffy Puller Device Identifier Shelf Expiration Date Model / Serial / Lot Cover Bur Hol Ti Lo 17 [id number] - [id number] Implanted:Qty: 1 on 01/22/2024 by Neo Lopez III, MD at [facility] Left: Head SYNTHES MAXILLOFACIAL 421.527 / / Screw Ti Lo Pro Sd 4mm 400.834 - [id number] Implanted:Qty: 8 on 01/22/2024 by Neo Lopez III, MD at [place] [facility] [place] Left: Head SYNTHES MAXILLOFACIAL 400.834 / / Cover Bur Hol 15mm 421.526 - [id number] Implanted:Qty: 1 on 01/22/2024 by Neo Lopez III, MD at [place] [facility] Left: Head SYNTHES MAXILLOFACIAL 421.526 / / documented as of this encounter Visit Diagnoses Diagnosis Glioblastoma multiforme (HCC) Malignant neoplasm of brain, unspecified site documented in this encounter Advance Directives Documents on File Type Date Recorded Patient Vest Tailor Expl anation Power of Vessel Liner 01/24/2024 signed on 01/21/2024 POWER OF CHART PICKER * Full Code (Latest Code Status on [...] Discussed due to patient's condition Care Teams Senior Cytotechnologist Relationship Specialty Start Date End Date Beverly Gonzales CRNP [address] [place] [address] PCP - General Nurse Practitioner 04/24/23 documented as of this encounter"
--- OUTSIDE RECORDS SUMMARY | 2024-05-06 16:12 | External Medical Summary | Summary of Care ---
Author Name Unknown Organization [facility] Address [address] [place] [address] Phone [phone] Care Team Providers Care Automotive Light Mechanic Name Role Phone Beverly Gonzales Aurora OCHOA Primary Care Provider Reason for Visit * Reason Comments Medication Management Encounter Details Date Type Department Care Team (Late st Contact Info) Description 03/28/2024 3:30 PM [facility] Pharmacy Pharmacy Hematology Oncology [facility] [address] [place] [address] [facility] Hem/Onc [address] [place], [place] [id number] Glioblastoma multiforme (HCC)* Allergies No known active allergiesdocumented as of this encounter (statuses as of 03/28/2024) Medications BiPAP every night at bedtime . [...] as of this encounter (statuses as of 03/28/2024) Active Problems Problem Noted Date Diagnosed Date [...] hypoxemia, suboptimal titration from CPAP to BIPAP [facility] Hypersomnia 12/18/2014 documented as of this encounter (statuses as of 03/28/2024) Resolved Problems Problem Noted Date Diagnosed Date [...] as of this encounter (statuses as of 03/28/2024) Immunizations Name Administration Dates Next Due TDAP [...] 01/22/2024 4:47 PM EDT Kirk Myers RN * Do you have [...] documented in this encounter Progress Notes * Mela Edward OSA - 03/28/2024 3:30 PM EST MEDICATION THERAPY MANAGEMENT TEMOZOLOMIDE TREATMENT EDUCATION NOTE Mariano Guillen [phone] Patient Phone Numbers Preferred Lab: [facility] Specialty Pharmacy: [facility] Treatment consent complete: yes Date: 02/07/24 Precertification complete: yes Date: 02/13/24 Patient has given verbal consent that staff from the Oral Chemotherapy Clinic can speak to Grace Guillen [phone] regarding their treatment. Patient has given verbal consent that staff from the Oral Chemotherapy Clinic can leave a voicemailwith treatment-related information: Yes This information can be left on Cell Communication: Spoke to: Other: [facility] Treatment: Medication: Temozolomide (Temodar) Indication/Staging/Diagnosis Code: GBM / C71.9 Dose Basis: 75mg/m2 (BSA 2.31m2) Dose: 180mg daily x 6 weeks Administration: 1 hour prior to RT and around the same time on non-radiation days Start Date: 02/27/2024 Primary Press Operator Carbon Products/Oncologist: Dr. Shakira Stanton Additional Therapy: RT @[facility] 03/27/24 Lab results received via [facility]. Scanned in @0929 for review by [facility] [place] Ultrasound Technician Pharmacy Hematology Oncology Oral Chemotherapy Clinic Medication Therapy Disease Management [facility] 03/28/24 9:29 AM Time Spent on Encounter: < 5 minutes Encounter Group: Neuro-Oncology Encounter Interventions Item Category: Oral Chemotherapy Temozolomide Problem/Rationale: Safety: Needs additional monitoring - Medication Requires monitoring Pharmacist Intervention(s): Contacted lab and Lab work requested Magnitude of Intervention: Monitoring with no interventions (Level 0) * Julia Gomes, [facility] - 03/28/2024 9:50 AM EST MEDICATION THERAPY MANAGEMENT TEMOZOLOMIDE TREATMENT PROGRESS NOTE Mariano Guillen [phone] Patient Phone Numbers Preferred Lab: [facility] Specialty Pharmacy: [facility] Treatment consent complete: yes Date: 02/07/24 Precertification complete: yes Date: 02/13/24 Patient has given verbal consent that staff from the Oral Chemotherapy Clinic can speak to Grace Guillen [phone] regarding their treatment. Patient has given verbal [...] on non-radiation days Start Date: 02/27/2024 Primary Press Operator Carbon Products/Oncologist: Dr. Shakira Stanton Additional Therapy: RT @[facility] Supportive Care Meds: Ondansetron Docusate Senokot Prophylactic Meds: Consider PJP ppx for ALC< 0.5 Relevant Chronic Medications: Category Medications Pertinent Notes Antihypertensives Losartan/HCTZ 50/12.5mg daily Per PCP Antidiabetic Tirzepatide Metformin ER 1000mg BID Per PCP Interval History: Reports mild constipation resolved with Miralax when needed. Denies exceeding 3 days without BM Confirms taking ondansetron before temozolomide dose and denies breakthrough nausea or additional antiemetic use No other concerns, tolerating therapy well Changes to medication list since last visit? No Upcoming surgeries or procedures? No Assessment and plan: Reviewed 1/2 labs from [facility] Al[facility]: WBC 11.85 (H) Hgb 15.4 PLT 207K ANC 9.95 (H) ALC 0.88 CMP stable Continue temozolomide PJP ppx not indicated ALC >0.5 Continue Miralax as needed for constipation management. Pt understands to contact office if no BM in 3 days Continue ondansetron for N/V ppx Continue temodar and weekly labs Assessment of compliance: compliant Assessment of adverse effects attributed to drug therapy: Constipation - present Nausea/Vomiting - absent Headache - absent Dose adjustment needed based on lab or adverse drug reaction? No Follow up: 1 week Julia Gomes, PharmD, BCOP Clinical Pharmacist, [facility] Oral Chemotherapy [facility] 03/28/2024, 9:55 AM Monitoring Parameters: Estimated CrCl Serum creatinine: 0.78 mg/dL 03/12/24 0000 Estimated creatinine clearance: 137.1 mL/min Hepatitis panel 02/12/24 - negative, not immune test N/a Suggested lab monitoring Suggested labs: CBCd and CMP Treatment Parameters Parameters to be met: PLTS >= 100 Hgb >= 10 ANC >= 1.5 ALC >= 0.5 LFTs within normal range hold if >3 times upper limit normal Pertinent Labs: see media Time Spent on Encounter: 6 - 10 minutes Encounter Group: Neuro-Oncology Encounter Interventions Item Category: Oral Chemotherapy Temozolomide Problem/Rationale: Safety: Needs additional monitoring - Medication Requires monitoring Pharmacist Intervention(s): Lab monitoring and Toxicity monitoring Magnitude of Intervention: Monitoring with direction (Level 1) Second Item Second Item Category: Laxatives Polyethylene glycol Problem/Rationale: Effectiveness: Needs additional monitoring - Medication Requires monitoring Pharmacist Intervention(s): Toxicity monitoring Magnitude of Intervention: Monitoring with direction (Level 1) Third Item Third Item Category: Anti-Emetic Ondansetron Problem/Rationale: Effectiveness: Needs additional monitoring - Medication Requires monitoring Pharmacist Intervention(s): Toxicity monitoring Magnitude of Intervention: Monitoring with direction (Level 1) documented in this encounter Plan of Treatment Upcoming Encounters Date Type Department Care Team (Late st Contact Info) Description 04/03/2024 3:30 PM EST Pharmacy Pharmacy Hematology Oncology [facility] [address] [facility] [address] [facility] Hem/Onc [address] [facility] [place] [address] 05/06/2024 8:45 AM EST Imaging Radiology [address], [address] [place] [address] 05/06/2024 8:45 AM EST Imaging Radiology [facility] [facility] [place] [address] [place] [address] 05/19/2024 9:45 AM EST Office Visit Neurosurgery, [place] [address] [place] [address] Clinic, Brain Tumor Multidisciplinary [address] [place] [address] 05/29/2024 8:00 AM EST Telemedicine Genetics HemOnc, [facility] [address] [place] [address] Brittany Tafoya, MS [address] [place] [address] Health Maintenance Due Date Last Done Comments [...] or Tdap) 11/14/2024 11/14/2014 GFR 03/12/2025 03/12/2024, 1206/2023, 02/12/2024, Additional history exists Lipid Panel 02/11/2029 02/12/2024, 11/2022, 11/14/2014 HPV (Gardasil) Vaccine Aged Out No lo nger eligible based on patient's age to complete this topic MENINGOCOCCAL (MENACTRA/MENVEO) Aged Out No longer eligible based on patient's age to complete this topic documented as of this encounter Medical Devices Implanted Type Area Package Handler Device Identifier Shelf Expiration Date Model / Serial / Lot Cover Bur Hol Ti Lo 17 421.527 - [id number] Implanted:Qty: 1 on 01/22/2024 by Neo Lopez III, MD at [place] [facility] Left: Head SYNTHES MAXILLOFACIAL 421.527 / / Screw Ti Lo Pro Sd 4mm 400.834 - [id number] Implanted:Qty: 8 on 01/22/2024 by Neo Lopez III, MD at [place] [facility] Left: Head SYNTHES MAXILLOFACIAL 400.834 / / Cover Bur Hol 15mm 421.526 - [id number] Implanted:Qty: 1 on 01/22/2024 by Neo Lopez III, MD at [place] [facility] Left: Head SYNTHES MAXILLOFACIAL 421.526 / / documented as of this encounter Visit Diagnoses Diagnosis Glioblastoma multiforme (HCC)- Primary Malignant neoplasm of brain, unspecified site documented in this encounter Advance Directives Documents on File Type Date Recorded Patient Wood Floor Refinisher Expl anation Power of Pipe Caulker 01/24/2024 signed on 01/21/2024 POWER OF CAR UNLOADER HELPER * Full Code (Latest Code Status on [...] Discussed due to patient's condition Care Teams Automotive Light Mechanic Relationship Specialty Start Date End Date Beverly Gonzales CRNP [address] [place] [address] PCP - General Nurse Practitioner 04/24/23 documented as of this encounter
--- OUTSIDE RECORDS SUMMARY | 2024-05-06 16:12 | External Medical Summary | Summary of Care ---
Author Name Unknown Organization [facility] Address [address] [facility] [place] [address] Phone [phone] Care Team Providers Care Top Lift Trimmer Name Role Phone Beverly Gonzales Aurora OCHOA Primary Care Provider Encounter Details Date Type Department Care Team (Late st Contact Info) Description 03/20/2024 Result Scan Unspecified Department <No scans attached> Allergies No known active allergiesdocumented as of this encounter (statuses as of 03/20/2024) Medications BiPAP every night at bedtime . Active Ventolin HFA 108 (90 Base) MCG/ACT Inhalation Aerosol Solution Inhale 2 Puffs by mouth every 4 hours as needed for Cough, Shortness of Breath or Wheezing. 18 g 1 04/24/19 24 Active Additional Information Patient not taking.Reported on 01/22/2024 Losartan Potassium-HCTZ 50-12.5 MG Oral Tablet (Hyzaar) take 1 AND 1/2 tablets by mouth every morning 135 Tablet 12/24/19 24 Active Acetaminophen 325 MG Oral Tablet (Tylenol) Take [...] day with morning and evening meals. 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 [...] Kirk Myers RN documented in this encounter Plan of Treatment Upcoming Encounters Date Type Department Care Team (Late st Contact Info) Description 03/20/2024 3:30 PM EST Pharmacy Pharmacy Hematology Oncology [facility] [place] [address] [place] [address] [facility] [place] Hem/Onc [address] [place] [address] 05/06/2024 8:45 AM EST Imaging Radiology [address] [place] [address] 05/06/2024 8:45 AM EST Imaging Radiology [address] [place] [address] 05/19/2024 9:45 AM EST Office Visit Neurosurgery, [place] [address] [place] [address] Clinic, Brain Tumor Multidisciplinary [address] [place] [address] 05/29/2024 8:00 AM EST Telemedicine Genetics HemOnc, [facility] [place] [address] [place] [address] Brittany Tafoya, MS [address] [place] [address] Health Maintenance Due Date Last Done Comments [...] or Tdap) 11/14/2024 11/14/2014 GFR 03/12/2025 03/12/2024, 06/2023, 02/12/2024, Additional history exists Lipid Panel 02/11/2029 02/12/2024, 11/2022, 11/14/2014 HPV (Gardasil) Vaccine Aged Out No lo nger eligible based on patient's age to complete this topic MENINGOCOCCAL (MENACTRA/MENVEO) Aged Out No longer eligible based on patient's age to complete this topic documented as of this encounter Medical Devices Implanted Type Area Executive Vice President And Chief Operating Officer Device Identifier Shelf Expiration Date Model / Serial / Lot Cover Bur Hol Ti Lo 17 421.527 - [id number] Implanted:Qty: 1 on 01/22/2024 by Neo Lopez III, MD at [place] [facility] [place] Left: Head SYNTHES MAXILLOFACIAL 421.527 / / Screw Ti Lo Pro Sd 4mm 400.834 - [id number] Implanted:Qty: 8 on 01/22/2024 by Neo Lopez III, MD at OR [facility] [place] Left: Head SYNTHES MAXILLOFACIAL 400.834 / / Cover Bur Hol 15mm 421.526 - [id number] Implanted:Qty: 1 on 01/22/2024 by Neo Lopez III, MD at OR [facility] [place] Left: Head SYNTHES MAXILLOFACIAL 421.526 / / documented as of this encounter Procedures Procedure Name Priority Date/Time Associated Diagnosis Comments OUTSIDE LAB RESULTS 03/20/2024 documented in this encounter Results * OUTSIDE LAB RESULTS (03/20/2024) 03/20/2024 us No Physician Data Unknown LABORATORY Final Result documented in this encounter Advance Directives Documents on File Type Date Recorded Patient Director Of Training Expl anation Power of Manager Student Services 01/24/2024 signed on 01/21/2024 POWER OF WARP KNITTER * Full Code (Latest Code Status on [...] Discussed due to patient's condition Care Teams Top Lift Trimmer Relationship Specialty Start Date End Date Beverly Gonzales CRNP [address] [place] [address] PCP - General Nurse Practitioner 04/24/23 documented as of this encounter
--- OUTSIDE RECORDS SUMMARY | 2024-05-06 16:12 | External Medical Summary | Summary of Care ---
Author Name Unknown Organization [facility] Address [address] [place] [address] Phone [phone] Care Team Providers Care Dispersion Mixer Name Role Phone Beverly Gonzales Aurora OCHOA Primary Care Provider Reason for Visit * Reason Comments Medication Management Encounter Details Date Type Department Care Team (Late st Contact Info) Description 03/20/2024 3:30 PM [facility] Pharmacy Pharmacy Hematology Oncology [facility] [address] [place] [address] [facility] Hem/Onc [address] [place], [place] [id number] Glioblastoma multiforme (HCC)* Allergies No known active [...] Fever >38C(100.5F) or mild pain. 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 Patient has given verbal [...] on non-radiation days Start Date: 02/27/2024 Primary Cardiac Sonographer/Oncologist: Dr. Shakira Stanton Additional Therapy: RT @[facility] Supportive Care Meds: Ondansetron Docusate Senokot Prophylactic Meds: Consider PJP ppx for ALC< 0.5 Relevant Chronic Medications: Category Medications Pertinent Notes Antihypertensives Losartan/HCTZ 50/12.5mg daily Per PCP Antidiabetic Tirzepatide Metformin ER 1000mg BID Per PCP Interval History: Patient denies any acute adverse effects with temozolomide. Reports worsening GERD symptoms. Reports mild constipation resolved with Miralax when needed. Denies exceeding 3 days without BM Confirms taking ondansetron before temozolomide dose and denies breakthrough nausea or additional antiemetic use No other concerns, tolerating therapy well Changes to medication list since last visit? No Upcoming surgeries or procedures? No Assessment and plan: Reviewed 03/20 labs from Yoel Fuller: WBC 10.91 Hgb 15.6 PLT 197K ANC 9.36 ALC 0.66 Continue temozolomide PJP ppx not indicated ALC [...] week Julia Gomes, PharmD, BCOP Clinical Pharmacist, [facility] Oral Chemotherapy [facility] 03/20/2024, 2:39 PM Monitoring Parameters: Estimated CrCl Serum creatinine: 0.78 [...] of Intervention: Monitoring with direction (Level 1) * Jenny Feldman, windshield repair technician - 03/20/2024 12:21 PM EST Lab results received via fax and uploaded to Patient chart. ALINE Barrera Board Catcher Hematology Oncology Oral Chemotherapy Clinic Medication Therapy Disease Management [facility] 03/20/24,12:21 PM Time Spent on Encounter: < 5 minutes * Jenny Feldman PHARM Tech - 03/20/2024 11:11 AM EST MEDICATION THERAPY MANAGEMENT TEMOZOLOMIDE TREATMENT EDUCATION NOTE Mariano Guillen [phone] Patient Phone Numbers Preferred Lab: [facility] Specialty Pharmacy: [facility] Treatment consent complete: yes Date: 02/07/24 Precertification complete: yes Date: 02/13/24 Patient has given verbal consent that staff from the Oral Chemotherapy Clinic can speak to Grace Guillen [phone] regarding their treatment. Patient has given verbal consent that staff from the Oral Chemotherapy Clinic can leave a voicemailwith treatment-related information: Yes This information can be left on Cell Communication: Spoke to: Other: Haylee @[facility] Lab Treatment: Medication: Temozolomide (Temodar) Indication/Staging/Diagnosis Code: GBM / C71.9 Dose Basis: 75mg/m2 (BSA 2.31m2) Dose: 180mg daily x 6 weeks Administration: 1 hour prior to RT and around the same time on non-radiation days Start Date: 02/27/2024 Primary Cardiac Sonographer/Oncologist: Dr. Shakira Stanton Faxing labs results from today for review. ALINE Barrera Board Catcher Hematology Oncology Oral Chemotherapy Clinic Medication Therapy Disease Management [facility] 03/20/24,11:13 AM Time Spent on Encounter: < 5 minutes documented in this encounter Plan of Treatment Upcoming Encounters Date Type Department Care Team (Late st Contact Info) Description 03/27/2024 3:30 PM EST Pharmacy Pharmacy Hematology Oncology [address] [address] [facility] [place] Hem/Onc [address] [place] [address] 05/06/2024 8:45 AM EST Imaging Radiology [address] [place] [address] 05/06/2024 8:45 AM EST Imaging Radiology [address], [place] [address] [place] [address] 05/19/2024 9:45 AM EST Office Visit Neurosurgery, [place] [address] [place] [address] Clinic, Brain Tumor Multidisciplinary [address] [place] [address] 05/29/2024 8:00 AM EST Telemedicine Genetics HemOn, [facility] [address] [place] [address] Brittany Tafoya, MS [address] [place] [address] Health Maintenance Due Date Last Done Comments [...] (FLU shot) (#1) 2023 HbA1c 08/11/2024 02/12/2024, 11/0 08/2023, 02/26/2023, Additional history exists DTap/Tdap Vaccines [...] this encounter Medical Devices Implanted Type Area Bin Tripper Operator Device Identifier Shelf Expiration Date Model / Serial / Lot Cover Bur Hol Ti Lo 17 421.527 - [id number] Implanted:Qty: 1 on 01/22/2024 by Neo Lopez III, MD at [place] [facility] Left: Head SYNTHES MAXILLOFACIAL 421.527 / / Screw Ti Lo Pro Sd 4mm 400.834 - [id number] Implanted:Qty: 8 on 01/22/2024 by Neo Lopez III, MD at OR [facility] Left: Head SYNTHES MAXILLOFACIAL 400.834 / / Cover Bur Hol 15mm 421.526 - [id number] Implanted:Qty: 1 on 01/22/2024 by Neo Lopez III, MD at [place] [facility] Left: Head SYNTHES MAXILLOFACIAL 421.526 / / documented as of this encounter Visit Diagnoses Diagnosis Glioblastoma multiforme (HCC)- Primary Malignant neoplasm of brain, unspecified site documented in this encounter Advance Directives Documents on File Type Date Recorded Patient Barrel Marker Expl anation Power of Low Raw Sugar Cutter 01/24/2024 signed on 01/21/2024 POWER OF VELVET STEAMER * Full Code (Latest Code Status on [...] Discussed due to patient's condition Care Teams Dispersion Mixer Relationship Specialty Start Date End Date Beverly Gonzales CRNP [address] [place] [address] PCP - General Nurse Practitioner 04/24/23 documented as of this encounter
--- OUTSIDE RECORDS SUMMARY | 2024-05-06 16:12 | External Medical Summary | Summary of Care ---
Author Name Unknown Organization [facility] Address [address] [facility] [place] [address] Phone [phone] Care Team Providers Care Receiving And Processing Supervisor Name Role Phone Beverly Cabezas Primary Care Provider Reason for Visit * Reason Comments eRx-Medication Refill Encounter Details Date Type Department Care Team (Late st Contact Info) Description 03/18/2024 Refill Family Practice [facility] [address] [facility] [place] [address] Beverly Cabezas CRNP [address] [place] [address] Allergies No known active allergiesdocumented as of [...] 02/04/2024 Ondansetron HCl 8 MG Oral Tablet (Zofran)Indicat ions:Glioblasto ma multiforme (HCC) Take 1 Tablet by mouth every 8 hours as needed for Nausea. 60 Tablet Active Temozolomide 180 MG Oral Capsule (Temodar)Indica tions:Glioblast zoltan multiforme (HCC) Take 1 Capsule by mouth in the morning. 1 hour before radiation treatment and at the same time on non radiation days. Take medication on empty stomach.. 42 Capsule 02/15/20 24 1:05 PM EST Active metFORMIN HCl ER 500 MG Oral [...] ONCE A WEEK 4 mL 1 024 Active dexAMETHasone 4 MG Oral Tablet (Decadron) Take 1 Tablet by mouth 2 times a day with morning and evening meals. 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 Answer Date of Assessment Author No 01/22/2024 4:47 PM EDT Kirk Myers RN * Are you blind [...] 4:47 PM EDT Kirk Myers RN * Because of a physical, mental, [...] Date Author No 01/22/2024 4:47 PM Kirk Bcekett RN documented in this encounter Miscellaneous Notes * Telephone Encounter - Bobo Norris RPh - 03/20/2024 3:05 PM ESTSigned Prescriptions: Disp Refills Losartan Potassium-HCTZ 50-12.5 MG Oral Ta*135 Ta*3 Sig: TAKE 1 & 1/2 (ONE & ONE-HALF) TABLETS BY MOUTH IN THE MORNINGAuthorizing Provider: BEVERLY CABEZAS User: BOBO NORRIS documented in this encounter Plan of Treatment Upcoming Encounters Date Type Department Care Team (Late st Contact Info) Description 03/20/2024 3:30 PM EST Pharmacy Pharmacy Hematology Oncology [address] [address] [facility] Hem/Onc [address] [place] [id number] Glioblastoma multiforme (HCC)* 03/27/2024 3:30 PM EST Pharmacy Pharmacy Hematology Oncology [address] [address] [facility] Hem/Onc [address] [place] [address] 05/06/2024 8:45 AM EST Imaging Radiology [address] [place] [address] 05/06/2024 8:45 AM EST Imaging Radiology [address] [place] [address] 05/19/2024 9:45 AM EST Office Visit Neurosurgery, [place] [address] [place] [address] Clinic, Brain Tumor Multidisciplinary [address] [place] [address] 05/29/2024 8:00 AM EST Telemedicine Genetics [place]c, [facility] [address] [place] [address] Brittany Tafoya, MS [address] [place] [address] Health Maintenance Due Date Last Done Comments [...] Screening 06/14/2019 06/13/2018 Albumin/Creatinine Ratio 05/04/2023 05/04/2022, 2 03/2021 Influenza Vaccine (FLU shot) (#1) 2023 HbA1c [...] this encounter Medical Devices Implanted Type Area Ergonomic Specialist Device Identifier Shelf Expiration Date Model / Serial / Lot Cover Bur Hol Ti Lo 17 421.527 - [id number] Implanted:Qty: 1 on 01/22/2024 by Neo Lopez III, [place] [facility] [place]: Head SYNTHES MAXILLOFACIAL 421.527 / / Screw Ti Lo Pro Sd 4mm 400.834 - [id number] Implanted:Qty: 8 on 01/22/2024 by Neo Lopez III, [place] [facility] [place]: Head SYNTHES MAXILLOFACIAL 400.834 / / Cover Bur Hol 15mm 421.526 - [id number] Implanted:Qty: 1 on 01/22/2024 by Neo Lopez III, MD [place] [facility] Left: Head SYNTHES MAXILLOFACIAL 421.526 / / documented as of this encounter Advance Directives Documents on File Type Date Recorded Patient Ladies Locker Room Attendant Expl anation Power of Oncology Transplant Network Manager 01/24/2024 signed on 01/21/2024 POWER OF OFFICE RECEPTIONIST * Full Code (Latest Code Status on [...] Discussed due to patient's condition Care Teams Receiving And Processing Supervisor Relationship Specialty Start Date End Date Beverly Cabezas CRNP [address] [place] [address] PCP - General Nurse Practitioner 04/24/23 documented as of this encounter
--- OUTSIDE RECORDS SUMMARY | 2024-05-06 16:12 | External Medical Summary | Summary of Care ---
Author Name Unknown Organization [facility] Address [address] [place] [address] Phone [phone] Care Team Providers Care Ukrainian Folk Arts Instructor Name Role Phone Beverly Gonzales Aurora OCHOA Primary Care Provider Reason for Visit * Reason Comments Medication Management Encounter Details Date Type Department Care Team (Late st Contact Info) Description 03/27/2024 3:30 PM [facility] Pharmacy Pharmacy Hematology Oncology [facility] [address] [place] [address] [facility] Hem/Onc [address] [place], [place] [id number] Glioblastoma multiforme (HCC)* Allergies No known active allergiesdocumented as of this encounter (statuses as of 03/27/2024) Medications BiPAP every night at bedtime . 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 Patient has given verbal consent that staff from the Oral Chemotherapy Clinic can leave a voicemailwith treatment-related information: Yes This information can be left on Cell Communication: Spoke to: Other: [facility] Treatment: Medication: Temozolomide (Temodar) Indication/Staging/Diagnosis Code: GBM / C71.9 Dose Basis: 75mg/m2 (BSA 2.31m2) Dose: 180mg daily x 6 weeks Administration: 1 hour prior to RT and around the same time on non-radiation days Start Date: 02/27/2024 Primary Fireman/Oncologist: Dr. Shakira Stanton Additional Therapy: RT @[facility] Patient was in for blood work this morning but results are not available yet. Will call [facility] tomorrow. ELY Pa Implementation Manager Pharmacy Hematology Oncology Oral Chemotherapy Clinic Medication Therapy Disease Management [facility] 03/27/24 9:29 AM Time Spent on Encounter: < 5 minutes Encounter Group: Neuro-Oncology Encounter Interventions Item Category: Oral Chemotherapy Temozolomide Problem/Rationale: Safety: Needs additional monitoring - Medication Requires monitoring Pharmacist Intervention(s): Contacted lab and Lab work requested Magnitude of Intervention: Monitoring with no interventions (Level 0) documented in this encounter Plan of Treatment Upcoming Encounters Date Type Department Care Team (Late st Contact Info) Description 03/28/2024 3:30 PM EST Pharmacy Pharmacy Hematology Oncology [facility] [place] [address] [place] [address] [facility] Hem/Onc [address] [place] [address] 05/06/2024 8:45 AM EST Imaging Radiology [address] [place] [address] 05/06/2024 8:45 AM EST Imaging Radiology [address], [place] [address] [place] [address] 05/19/2024 9:45 AM EST Office Visit Neurosurgery, [place] [address] [place] [address] Clinic, Brain Tumor Multidisciplinary [facility] [place] [address] 05/29/2024 8:00 AM EST Telemedicine Genetics HemOnc, [facility] [address] [place] [address] Brittany Tafoya, MS [address] [place] [address] Health Maintenance Due Date Last Done Comments [...] (FLU shot) (#1) 2023 HbA1c 08/11/2024 02/12/2024, 110 08/2023, 02/26/2023, Additional history exists DTap/Tdap Vaccines [...] this encounter Medical Devices Implanted Type Area Band Sewer Device Identifier Shelf Expiration Date Model / Serial / Lot Cover Bur Hol Ti Lo 17 421.527 - [id number] Implanted:Qty: 1 on 01/22/2024 by Neo Lopez III, MD at OR [facility] Left: Head SYNTHES MAXILLOFACIAL 421.527 / / Screw Ti Lo Pro Sd 4mm 400.834 - [id number] Implanted:Qty: 8 on 01/22/2024 by Neo Lopez III, MD at OR [facility] Left: Head SYNTHES MAXILLOFACIAL 400.834 / / Cover Bur Hol 15mm 421.526 - [id number] Implanted:Qty: 1 on 01/22/2024 by Neo Lopez III, MD at OR [facility] Left: Head SYNTHES MAXILLOFACIAL 421.526 / / documented as of this encounter Visit Diagnoses Diagnosis Glioblastoma multiforme (HCC)- Primary Malignant neoplasm of brain, unspecified site documented in this encounter Advance Directives Documents on File Type Date Recorded Patient Audio Visual Coordinator Expl anation Power of Solar Sales Rep 01/24/2024 signed on 01/21/2024 POWER OF YOUTH AGENT * Full Code (Latest Code Status on [...] Discussed due to patient's condition Care Teams Ukrainian Folk Arts Instructor Relationship Specialty Start Date End Date Beverly Gonzales CRNP [address] [place] [address] PCP - General Nurse Practitioner 04/24/23 documented as of this encounter
--- OUTSIDE RECORDS SUMMARY | 2024-05-06 16:12 | External Medical Summary | Summary of Care ---
Author Name Unknown Organization [facility] Address [address] [facility] [place] [address] Phone [phone] Care Team Providers Care Scroll Saw Operator Name Role Phone Beverly Gonzales DON Primary Care Provider Encounter Details Date Type Department Care Team (Late st Contact Info) Description 04/09/2024 Orders Only Hematology/Oncology [facility] Sue [place] [address] [facility] [place] [phone] Keon Stanton [facility] [address] Allergies No known active allergiesdocumented as of this encounter (statuses as of 04/09/2024) Medications BiPAP every night at bedtime . Active Ventolin HFA 108 (90 Base) MCG/ACT Inhalation Aerosol Solution Inhale 2 Puffs by mouth every 4 hours as needed for Cough, Shortness of Breath or Wheezing. 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 Not [...] Author No 01/22/2024 4:47 PM EDT Kirk Myesr RN documented as of this encounter Mental [...] st Contact Info) Description 04/10/2024 3:30 PM EST Pharmacy Pharmacy Hematology Oncology [facility] [address] [place] [address] [facility] [place], [facility] Hem/Onc [facility] [place] [address] 05/06/2024 8:45 AM EST Imaging Radiology [address] [place] [phone] 05/06/2024 8:45 AM EST Imaging Radiology [address] [place] [phone] 05/19/2024 9:45 AM EST Office Visit Neurosurgery, [place] [address] [place] [address] Clinic, Brain Tumor Multidisciplinary [facility] [place] [address] 05/29/2024 8:00 AM EST Telemedicine Genetics [place]c, [facility] [address] [place] [address] Brittany Tafoya, MS [address] [facility] [place] [id number] Health Maintenance Due Date Last Done Comments [...] Td or Tdap) 11/14/2024 11/14/2014 GFR 03/12/2025 04/09/2024, 02/23, 02/27/2024, Additional history exists Lipid Panel 02/11/2029 02/12/2024, 0211/2022, 11/14/2014 HPV (Gardasil) Vaccine Aged Out No lo nger eligible based on patient's age to complete this topic MENINGOCOCCAL (MENACTRA/MENVEO) Aged Out No longer eligible based on patient's age to complete this topic documented as of this encounter Medical Devices Implanted Type Area Shoe Singer Device Identifier Shelf Expiration Date Model / Serial / Lot Cover Bur Hol Ti Lo 17 421.527 - [id number] Implanted:Qty: 1 on 01/22/2024 by Neo Lopez III, [place] [facility] [place]: Head SYNTHES MAXILLOFACIAL 421.527 / / Screw Ti Lo Pro Sd 4mm 400.834 - [id number] Implanted:Qty: 8 on 01/22/2024 by Neo Lopez III, MD [place] [facility] Left: Head SYNTHES MAXILLOFACIAL 400.834 / / Cover Bur Hol 15mm 421.526 - [id number] Implanted:Qty: 1 on 01/22/2024 by Neo Lopez III, MD [place] [facility] Left: Head SYNTHES MAXILLOFACIAL 421.526 / / documented as of this encounter Procedures Procedure Name Priority Date/Time Associated Diagnosis Comments CHEMISTRY-OUTSIDE Routine 04/09/2024 documented in this encounter Results * (ABNORMAL) CHEMISTRY-OUTSIDE (04/09/2024) Not all results display below - see scan for full detail OUTSIDE LAB (SEE SCANNED REPORT) Comment:SCAN INCLUDES - CMP, CBCD CREATININE 0.83 0.6 - 1.4 MG/DL OUTSIDE LAB (SEE SCANNED REPORT) EGFR 105.96 OUTSIDE LA B (SEE SCANNED REPORT) POTASSIUM 3.7 3.5 - 5.1 MMOL/L OUTSIDE LAB (SEE SCANNED REPORT) GLUCOSE 182(A) 70 - 99 MG/DL OUTSIDE LAB (SEE SCANNED REPORT) HOURS FASTING OUTSID E LAB (SEE SCANNED REPORT) TRIGLYCERIDES-OUT SIDE LAB OUTSIDE LAB (SEE SCANNED REPORT) CHOLESTEROL-OUTSI DE LAB OUTSIDE LAB (SEE SCANNED REPORT) HDL-OUTSIDE LAB OUTS [facility] (SEE SCANNED REPORT) CHOL/HDL RATIO-OUTSIDE LAB OUTSIDE LA B (SEE SCANNED REPORT) LDL (CALCULATED)-OUTS [facility] OUTSIDE LAB (SEE SCANNED REPORT) LDL (DIRECT MEASURE)-OUTSIDE LAB OUTSIDE LAB (SEE SCANNED REPORT) HEMOGLOBIN, C4M-BKCYRTB LAB OUTSIDE LAB (SEE SCANNED REPORT) PHOSPHORUS-OUTSID E LAB OUTSIDE LAB (SEE SCANNED REPORT) PTH-OUTSIDE LAB OUTS [facility] (SEE SCANNED REPORT) MICROALBUMIN RATIO-OUTSIDE LAB OUTSIDE LA B (SEE SCANNED REPORT) PROTEIN, UA-OUTSIDE LAB OUTSIDE LAB (SEE SCANNED REPORT) HGB 15.7 14.0 - 18.0 G/DL OUTSIDE LAB (SEE SCANNED REPORT) 04/09/2024 Keon Stanton MD LABORATORY Final Result OUTSIDE LAB (SEE SCANNED REPORT) documented in this encounter Advance Directives Documents on File Type Date Recorded Patient Import/Export Freight Forwarder Expl anation Power of Diesel Engine Tester 01/24/2024 signed on 01/21/2024 POWER OF COMMAND AND CONTROL SYSTEMS INTEGRATOR * Full Code (Latest Code Status on [...] Discussed due to patient's condition Care Teams Scroll Saw Operator Relationship Specialty Start Date End Date Beverly Gonzales CRNP [address] [place] [address] PCP - General Nurse Practitioner 04/24/23 documented as of this encounter
--- OUTSIDE RECORDS SUMMARY | 2024-05-06 16:12 | External Medical Summary | Summary of Care ---
Author Name Unknown Organization [facility] Address [address] [facility] [address] Phone [phone] Care Team Providers Care Policy Officer Name Role Phone Beverly Gonzaleslle DON Primary Care Provider Reason for Visit * Reason Comments Medication Refill Encounter Details Date Type Department Care Team (Late st Contact Info) Description 04/07/2024 Refill Hematology/Oncology [facility] [place] 200 [facility] [place] [phone] Keon Stanton MD 200 [facility] [place] [address] Glioblastoma multiforme (HCC) Allergies No known active allergiesdocumented as of this encounter (statuses as of 04/07/2024) Medications BiPAP every night at bedtime . 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 1 hour before radiation treatment and at the same time on non radiation days. Take medication on empty stomach..Refused By: YOLY MATUTERericci for Refusal:Not indicated documented in this encounter Plan of Treatment Upcoming Encounters Date Type Department Care Team (Late st Contact Info) Description 04/10/2024 3:30 PM EST Pharmacy Pharmacy Hematology Oncology [address] [address] [facility] [place] Hem/Onc [address] [place] [address] 05/06/2024 8:45 AM EST Imaging Radiology [address] [place] [phone] 05/06/2024 8:45 AM EST Imaging Radiology [address] [place] [phone] 05/19/2024 9:45 AM EST Office Visit Neurosurgery, [place] [address] [place] [address] Clinic, Brain Tumor Multidisciplinary [address] [place] [address] 05/29/2024 8:00 AM EST Telemedicine Genetics HemOnc, C [address] [place] [address] Brittany Tafoya, MS [address] [place] [address] Health Maintenance Due Date Last Done Comments [...] this encounter Medical Devices Implanted Type Area Embossograph Operator Device Identifier Shelf Expiration Date Model / Serial / Lot Cover Bur Hol Ti Lo 17 421.527 - [id number] Implanted:Qty: 1 on 01/22/2024 by Neo Lopez III[place] [facility] [place]: Head SYNTHES MAXILLOFACIAL 421.527 / / Screw Ti Lo Pro Sd 4mm 400.834 - [id number] Implanted:Qty: 8 on 01/22/2024 by Neo Lopez III, [place] [facility]: Head SYNTHES MAXILLOFACIAL 400.834 / / Cover Bur Hol 15mm 421.526 - [id number] Implanted:Qty: 1 on 01/22/2024 by Neo Lopez III, [place] [facility]: Head SYNTHES MAXILLOFACIAL 421.526 / / documented as of this encounter Visit Diagnoses Diagnosis Glioblastoma multiforme (HCC) Malignant neoplasm of brain, unspecified site documented in this encounter Advance Directives Documents on File Type Date Recorded Patient Design Specialist Expl anation Power of Pharmacy Affairs Assistant 01/24/2024 signed on 01/21/2024 POWER OF CREDIT COMPLIANCE OFFICER * Full Code (Latest Code Status on [...] Discussed due to patient's condition Care Teams Policy Officer Relationship Specialty Start Date End Date Beverly Gonzales CRNP [address] [place] [address] PCP - General Nurse Practitioner 04/24/23 documented as of this encounter
--- OUTSIDE RECORDS SUMMARY | 2024-05-06 16:12 | External Medical Summary | Summary of Care ---
Author Name Unknown Organization [facility] Address [address] [facility] [address] Phone [phone] Care Team Providers Care Leather Whitener Name Role Phone Beverly Gonzaleslle DON Primary Care Provider Reason for Visit * Reason Comments Medication Refill Encounter Details Date Type Department Care Team (Late st Contact Info) Description 04/04/2024 Refill Hematology/Oncology [facility] [place] 200 [facility] [place] [phone] Keon Stanton MD 200 [facility] [place] [address] Glioblastoma multiforme (HCC) Allergies No known active allergiesdocumented as of this encounter (statuses as of 04/04/2024) Medications BiPAP every night at bedtime . [...] as of this encounter (statuses as of 04/04/2024) Active Problems Problem Noted Date Diagnosed Date [...] suboptimal titration from CPAP to BIPAP [facility] Hypersomnia 12/18/2014 documented as of this encounter (statuses as of 04/04/2024) Resolved Problems Problem Noted Date Diagnosed Date [...] as of this encounter (statuses as of 04/04/2024) Immunizations Name Administration Dates Next Due TDAP [...] Notes * Telephone Encounter - Yoly Matute RPh - 04/04/2024 10:30 AM EST Refused Prescriptions: Disp Refills Temozolomide 180 MG Oral Capsule (Temodar) 42 Cap*0 Sig: Take 1Capsule by mouth in the morning. 1 hour before radiation treatment and at the same time on non radiation days. Take medication on empty stomach..Refused By: YOLY MATUTEReason for Refusal:Not indicated documented in this encounter Plan of Treatment Upcoming Encounters Date Type Department Care Team (Late st Contact Info) Description 04/10/2024 3:30 PM EST Pharmacy Pharmacy Hematology Oncology [address] [address] [facility] [place] Hem/Onc [address] [place] [address] 05/06/2024 8:45 AM EST Imaging Radiology [address] [place] [address] 05/06/2024 8:45 AM EST Imaging Radiology [address] [place] [address] 05/19/2024 9:45 AM EST Office Visit Neurosurgery, [place] [address] [place] [address] Clinic, Brain Tumor Multidisciplinary [address] [place] [address] 05/29/2024 8:00 AM EST Telemedicine Genetics [place]c, [facility] [address] [place] [address] Brittany Tafoya, MS [address] [place] [address] Health Maintenance Due Date Last Done Comments [...] this encounter Medical Devices Implanted Type Area Painter Mirror Device Identifier Shelf Expiration Date Model / Serial / Lot Cover Bur Hol Ti Lo 17 421.527 - [id number] Implanted:Qty: 1 on 01/22/2024 by Neo Lopez III[place] [facility]: Head SYNTHES MAXILLOFACIAL 421.527 / / Screw Ti Lo Pro Sd 4mm 400.834 - [id number] Implanted:Qty: 8 on 01/22/2024 by Neo Lopez III, [place] [facility]: Head SYNTHES MAXILLOFACIAL 400.834 / / Cover Bur Hol 15mm 421.526 - [id number] Implanted:Qty: 1 on 01/22/2024 by Neo Lopez III, [place] [facility]: Head SYNTHES MAXILLOFACIAL 421.526 / / documented as of this encounter Visit Diagnoses Diagnosis Glioblastoma multiforme (HCC) Malignant neoplasm of brain, unspecified site documented in this encounter Advance Directives Documents on File Type Date Recorded Patient Vacuum Kettle Cook Expl anation Power of Research Test Engine Evaluator 01/24/2024 signed on 01/21/2024 POWER OF DYE RANGE FEEDER * Full Code (Latest Code Status on [...] Discussed due to patient's condition Care Teams Leather Whitener Relationship Specialty Start Date End Date Beverly Gonzales CRNP [address] [place] [address] PCP - General Nurse Practitioner 04/24/23 documented as of this encounter
--- OUTSIDE RECORDS SUMMARY | 2024-05-06 16:12 | External Medical Summary | Summary of Care ---
Author Name Unknown Organization [facility] Address [address] [place] [address] Phone [phone] Care Team Providers Care Secondary Connector Armature Name Role Phone Beverly Gonzales [facility] Primary Care Provider Reason for Visit * Reason Comments Medication Management Encounter Details Date Type Department Care Team (Late st Contact Info) Description 04/03/2024 3:30 PM [facility] Pharmacy Pharmacy Hematology Oncology [facility] [address] [place] [address] [facility] [place] [place], [facility] Hem/Onc [address] [place], [place] [id number] Glioblastoma multiforme (HCC)* Allergies No known active allergiesdocumented as of this encounter (statuses as of 04/03/2024) Medications BiPAP every night at bedtime . 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 Patient has given verbal [...] on non-radiation days Start Date: 02/27/2024 Primary Stock And Station Agent/Oncologist: Dr. Shakira Stanton Additional Therapy: RT @[facility] Supportive Care Meds: Ondansetron Docusate Senokot Prophylactic Meds: Consider PJP ppx for ALC< 0.5 Relevant Chronic Medications: Category Medications Pertinent Notes Antihypertensives Losartan/HCTZ 50/12.5mg daily Per PCP Antidiabetic Tirzepatide Metformin ER 1000mg BID Per PCP Interval History: No current issues to report Not using miralax as he has not been constipated He states he will not have enough temodar for last 2 days of RT Advised this is okay and is likely because of hang and holidays where he did not receive RT Changes to medication list since last visit? No Upcoming surgeries or procedures? No Assessment and plan: Reviewed 04/02 labs from Yoel Fuller: WBC 10.20 Hgb 15.2 PLT 182K ANC 7.91 (H) ALC 0.98 - PJP ppx not indicated CMP stable Continue temozolomide and weekly labs COT 04/10 Assessment of compliance: compliant Assessment of adverse effects attributed to drug therapy: Constipation - absent Nausea/Vomiting - absent Headache - absent Dose adjustment needed based on lab or adverse drug reaction? No Follow up: 1 week Georgette Robles, PharmD, BCOP Ambulatory Clinical Pharmacist | Oral Chemotherapy Clinic [facility] 04/03/2024, 4:06 PM Monitoring Parameters: Estimated CrCl Serum creatinine: [...] upper limit normal Pertinent Labs: see media * Mela Edward OSA - 04/03/2024 3:30 PM EST MEDICATION THERAPY MANAGEMENT TEMOZOLOMIDE TREATMENT EDUCATION NOTE Mariano Stewart Mindy [phone] Patient Phone Numbers Preferred Lab: [facility] Specialty Pharmacy: P Treatment consent complete: yes Date: 02/07/24 Precertification complete: yes Date: 02/13/24 Patient has given verbal consent that staff from the [facility]otherapy Clinic can speak to Grace Guillen [phone] regarding their treatment. Patient has given verbal consent that staff from the [facility] Clinic can leave a voicemailwith treatment-related information: Yes This information can be left on Cell Communication: Spoke to: Other: [facility] Treatment: Medication: Temozolomide (Temodar) Indication/Staging/Diagnosis Code: GBM / C71.9 Dose Basis: 75mg/m2 (BSA 2.31m2) Dose: 180mg daily x 6 weeks Administration: 1 hour prior to RT and around the same time on non-radiation days Start Date: 02/27/2024 Primary Stock And Station Agent/Oncologist: Dr. Shakira Stanton Additional Therapy: RT @[facility] Faxing 04/02/24 lab results for review [facility] Hematology Oncology [facility] Medication Therapy Disease Management [facility] 04/03/24 11:02 AM Time Spent on Encounter: 6 - 10 minutes Time Spent on Encounter: < 5 minutes [...] 3:30 PM EST Pharmacy Pharmacy Hematology Oncology [facility] [address] [place] [address] [facility] [place] [place], [facility] Hem/Onc [address] [place] [address] 05/06/2024 8:45 AM EST Imaging Radiology [address] [address] 05/06/2024 8:45 AM EST Imaging Radiology [address] [address] 05/19/2024 9:45 AM EST Office Visit Neurosurgery, [place] [address] [place] [address] Clinic, Brain Tumor Multidisciplinary [address] [place] [address] 05/29/2024 8:00 AM EST Telemedicine Genetics Hem[place]c, [facility] [address] [place] [address] Brittany Tafoya, MS [address] [place] [address] Health Maintenance Due Date Last Done Comments [...] this encounter Medical Devices Implanted Type Area Dye Line Operator Device Identifier Shelf Expiration Date Model / Serial / Lot Cover Bur Hol Ti Lo 17 421.527 - [id number] Implanted:Qty: 1 on 01/22/2024 by Neo Lopez III, MD [place] [facility] [place]: Head SYNTHES MAXILLOFACIAL 421.527 / / Screw Ti Lo Pro Sd 4mm 400.834 - [id number] Implanted:Qty: 8 on 01/22/2024 by Neo Lopez III, MD [place] [facility] [place]: Head SYNTHES MAXILLOFACIAL 400.834 / / Cover Bur Hol 15mm 421.526 - [id number] Implanted:Qty: 1 on 01/22/2024 by Neo Lopez III, MD [place] [facility] [place]: Head SYNTHES MAXILLOFACIAL 421.526 / / documented as of this encounter Visit Diagnoses Diagnosis Glioblastoma multiforme (HCC)- Primary Malignant neoplasm of brain, unspecified site documented in this encounter Advance Directives Documents on File Type Date Recorded Patient Psychometrician Expl anation Power of Staff Sonographer 01/24/2024 signed on 01/21/2024 POWER OF ASSISTANT PROFESSOR OF PHILOSOPHY * Full Code (Latest Code Status on [...] Discussed due to patient's condition Care Teams Secondary Connector Armature Relationship Specialty Start Date End Date Beverly Gonzales CRNP 132 [facility] [place] [address] PCP - General Nurse Practitioner 04/24/23 documented as of this encounter"
--- OUTSIDE RECORDS SUMMARY | 2024-05-06 16:12 | External Medical Summary | Summary of Care ---
Author Name Unknown Organization [facility] Address [address] [place] [address] Phone [phone] Care Team Providers Care Title Insurance Sales Representative Name Role Phone Beverly Gonzales Aurora OCHOA Primary Care Provider Reason for Visit * Reason Comments Follow Up Appointment Encounter Details Date Type Department Care Team (Late st Contact Info) Description 03/11/2024 4:00 PM EST Office Visit Hematology/Oncology [facility] [place] [address] [place] [address] Ana Oliver CRNP [address] [place] [address] Glioblastoma multiforme (HCC)* Allergies No known active allergiesdocumented as of this encounter (statuses as of 03/19/2024) Medications BiPAP every night at bedtime . [...] as of this encounter (statuses as of 03/19/2024) Active Problems Problem Noted Date Diagnosed Date [...] hypoxemia, suboptimal titration from CPAP to BIPAP [facility] Hypersomnia 12/18/2014 documented as of this encounter (statuses as of 03/19/2024) Resolved Problems Problem Noted Date Diagnosed Date Resolved Date Body mass index (BMI) of 45. 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 Not on file Not on file documented as of this encounter Last Filed Vital Signs Vital Sign Reading Time Taken Comments Blood Pressure 119/78 03/11/2024 3:49 PM EST Pulse 73 03/11/2024 3:49 PM EST Temperature 37 C (98.6 F) 03/11/2024 3:49 PM EST Respiratory Rate - - Oxygen Saturation 94% 03/11/2024 3:49 PM EST Inhaled Oxygen Concentration - - Weight 123.9 kg (273 lb 3.2 oz) 03/11/2024 3:49 PM EST Height - - Body Mass Index 45.46 02/04/2024 9:36 AM EST documented in this [...] documented in this encounter Progress Notes * Ana Oliver CRNP - 03/11/2024 4:05 PM EST Images from the original note were not included. Hematology/Oncology Outpatient Clinic note [address] [place] [address] Name: Mariano Guillen Date: 03/11/2024 CHIEF COMPLAINT: Mariano Guillen is a 53 year old male here today for f/u visit today. Patient of Dr. Keon Stanton. From Patient chart confirmed with patient. From Dr. Keon Stanton note 02/07/24. HEMATOLOGY/ONCOLOGY DIAGNOSIS: Glioblastoma multiforme, WHO grade 4. Involving the left parietal lobe. -EGFR not amplified. NGS checkup on 01/22/2024: -TMB--> 2.84 which is low -MSI stable -SHERRIE mutation noted. - MGMT gene promoter methylation --> not detected. DATE OF DIAGNOSIS: 01/22/24 TREATMENT HISTORY: Subtotal resection 01/22/24 CURRENT TREATMENT: Combined chemotherapy with temozolomide and radiation treatment Temozolomide (Temodar) 180mg daily x 6 weeks (02/27/24 - ) DIAGNOSTIC WORKUP: He presented to the ER on 01/16/2024 for 3 days' history of right leg numbness, could not walk properly when he showed up at work. Did not have any increasing nausea, vomiting or headache. CT scan of the head on 01/13/2024 showed left parietal lobe mass with surrounding vasogenic edema, he was then transferred at [facility]. Further workup as follows: Brain [...] on Nicoderm patch. HISTORY OF PRESENT ILLNESS: Mariano Guillen is a 53 year old male with a history as outlined above. Currently here for f/u visit today. Today received his 10th radiation treatment. Numbness and weakness to right side improved on the dexamethasone. Taking 8 mg daily. Is taking Pepcid for GI prophylaxis. Denies constipation ordiarrhea. Denies headaches. PCP manages diabetes. Past Medical History: Diagnosis Date Hypertension Morbid obesity (HCC) Sleep apnea Sleep apnea, obstructive Past Surgical History: Procedure Laterality Date INFORMATION Left left hand surgery to remove nail from hand MICROSURGERY ADD-ON Left 01/22/2024 MICROSURGICAL SURGERY REQUIRING MICROSCOPE LISTED SEPARATELY performed by Neo Lopez III, MD at OR [facility] REMOVE SUPRATENTORIAL BRAIN TUMOR Left 01/22/2024 CRANIOTOMY BONE FLAP EXCISION BRAIN TUMOR SUPRATENTORIAL performed by Neo Lopez III, MDa OR [facility] Social History Socioeconomic History Marital status: Spouse name: Not on file Number of children: Not on file Years of education: Not on file Highest education level: Not on file Occupational History 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 BiPAP every night at bedtime . Ventolin HFA 108 (90 Base) MCG/ACT Inhalation Aerosol Solution Inhale 2 Puffs by mouth every 4 hours as needed for Cough, Shortness of Breath or Wheezing. (Patient not taking: Reported on 01/22/2024)18 g 1 Losartan Potassium-HCTZ 50-12.5 MG Oral Tablet (Hyzaar) take 1 AND 1/2 tablets by mouth every morning 135 Tablet 0 Acetaminophen 325 MG Oral Tablet (Tylenol) Take [...] taking: Reported on 02/04/2024) 30 Patch 1 Ondansetron HCl 8 MG Oral Tablet (Zofran) Take 1 Tablet by mouth every 8 hours as needed for Nausea. 60 Tablet 0 Temozolomide 180 MG Oral Capsule (Temodar) Take 1 Capsule by mouth in the morning. 1 hour before radiation treatment and at the same time on non radiation days. Take medication on empty stomach.. 42 Capsule 0 metFORMIN HCl ER 500 MG Oral Tablet Extended Release 24 Hour (Glucophage XR) Take 2 tablets by mouth twice daily 120 Tablet 5 Famotidine 20 MG Oral Tablet (Pepcid) Take 1 Tablet by mouth in the morning and 1 Tablet before bedtime. 60 Tablet 5 Mounjaro 2.5 MG/0.5ML Subcutaneous Solution Auto-injector (Tirzepatide) INJECT 1 SYRINGE SUBCUTANEOUSLY ONCE A WEEK 4 mL 1 No current facility-administered medications for this visit. REVIEW OF SYSTEMS: See HPI - otherwise negative OBJECTIVE: Filed Vitals: 03/11/24 1549 BP: 119/78 Pulse: 73 Temp: 37 C (98.6 F) TempSrc: Tympanic SpO2: 94% Weight: 123.9 kg (273 lb 3.2 oz) Wt Readings from Last 5 Encounters: 03/11/24 123.9 kg (273 lb 3.2 oz) 02/07/24 116.6 kg (257 lb) 02/04/24 118.9 kg (262 lb 1.6 oz) 01/30/24 117.5 kg (259 lb) 01/22/24 118.8 kg (262 lb) PHYSICAL EXAM: ECOG: Performance Status 1 = [...] edema Neurologic: Normal - Grossly intact LABS: IMPRESSION/PLAN: Glioblastoma multiforme, WHO grade 4. Involving the left parietal lobe S/P subtotal resection 01/22/24 Currently on oral Decadron on tapering dose with improvement of the right-sided leg weakness. Currently completing combined chemoradiation with Temozolomide (Temodar) 180mg daily with plan for six weeks of therapy. Completed second week today. Tolerating Temodar well with no signs or symptoms of toxicity noted. Continue weekly labs and MTM f/u - appreciate recommendations -scheduled for next set of lab work tomorrow Scheduled for next Brain MRI and Brain Tumor MDC appointment in April Genetics referral pending. RTC in 4-6 weeks with physician DON Mckeon documented in this encounter Nursing Notes * Treva Arndt MED ASSIST - 03/11/2024 3:52 PM EST Patient identifed by name and birthdate Do you have any concerns about pain management for today's visit? Yes. Patient instructed to discuss pain concerns with provider during the visit today Living Will or Advance Directive for Health Care as noted on the problem list. [facility] is a way you can talk to your provider on line through e-mail. Would you like to sign up? I can activate it for you? ALREADY ACTIVE Filed Vitals: 03/11/24 1549 BP: 119/78 Pulse: 73 Temp: 37 C (98.6 F) TempSrc: Tympanic SpO2: 94% Weight: 123.9 kg (273 lb 3.2 oz) Patient was instructed to not get [...] 3:30 PM EST Pharmacy Pharmacy Hematology Oncology [address] [address] [facility], [facility] Hem/Onc [facility] [place] [address] 05/06/2024 8:45 AM EST Imaging Radiology [address] [address] 05/06/2024 8:45 AM EST Imaging Radiology [address] [address] 05/19/2024 9:45 AM EST Office Visit Neurosurgery, [place] [address] [place] [address] Clinic, Brain Tumor Multidisciplinary [facility] [place] [address] 05/29/2024 8:00 AM EST Telemedicine Genetics HemOnc, [facility] [address] [place] [address] Brittany Tafoya, MS [address] [place] [address] Health Maintenance Due Date Last Done Comments COVID-19 Vaccine (#1) 1977 HIV Screening 12/22/1987 Diabetic Eye Exam 1990 Diabetic Foot Exam 1990 Hepatitis C Screening 1990 Hepatitis B Vaccine (1 of 3 - 19+ 3-dose series) 12/22/1991 Pneumococcal Vaccine: Pediatrics (0 to 5 Years) and At-Risk Patients (6 to 64 Years) (1 of 2 - PCV) 12/22/1991 Zoster [...] this encounter Medical Devices Implanted Type Area Flight Reservations Manager Device Identifier Shelf Expiration Date Model / Serial / Lot Cover Bur Hol Ti Lo 17 421.527 - [id number] Implanted:Qty: 1 on 01/22/2024 by Neo Lopez III, MD at OR [facility] Left: Head SYNTHES MAXILLOFACIAL 421.527 / / Screw Ti Lo Pro Sd 4mm 400.834 - [id number] Implanted:Qty: 8 on 01/22/2024 by Neo Lopez III, MD at OR [facility] Left: Head SYNTHES MAXILLOFACIAL 400.834 / / Cover Bur Hol 15mm 421.526 - [id number] Implanted:Qty: 1 on 01/22/2024 by Neo Lopez III, MD at [facility] Left: Head SYNTHES MAXILLOFACIAL 421.526 / / documented as of this encounter Visit Diagnoses Diagnosis Glioblastoma multiforme (HCC)- Primary Malignant neoplasm of brain, unspecified site documented in this encounter Advance Directives Documents on File Type Date Recorded Patient Anvil Worker Expl anation Power of Head Of Measurement & Insights 01/24/2024 signed on 01/21/2024 POWER OF SUPERINTENDENT SALES * Full Code (Latest Code Status on [...] Discussed due to patient's condition Care Teams Title Insurance Sales Representative Relationship Specialty Start Date End Date Beverly Gonzales CRNP [address] [place] [address] PCP - General Nurse Practitioner 04/24/23 documented as of this encounter
--- OUTSIDE RECORDS SUMMARY | 2024-05-06 16:12 | External Medical Summary | Summary of Care ---
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 Not [...] of Assessment Author No 01/22/2024 4:47 PM Violeta Beckett RN * Do you have serious [...] 3:30 PM EST Pharmacy Pharmacy Hematology Oncology [facility] [address] [place] [address] [facility] Hem/Onc [address] [place] [address] 05/06/2024 8:45 AM EST Imaging Radiology [address] [place] [address] 05/06/2024 8:45 AM EST Imaging Radiology [address] [place] [address] 05/19/2024 9:45 AM EST Office Visit Neurosurgery, [place] [address] [place] [address] Clinic, Brain Tumor Multidisciplinary [address] [place] [address] 05/29/2024 8:00 AM EST Telemedicine Genetics HemOnc, [facility] [address] [place] [address] Brittany Tafoya, MS [address] [place] [address] Health Maintenance Due Date Last Done Comments [...] this encounter Medical Devices Implanted Type Area Fermenter Device Identifier Shelf Expiration Date Model / Serial / Lot Cover Bur Hol Ti Lo 17 421.527 - [id number] Implanted:Qty: 1 on 01/22/2024 by Neo Lopez III, MD at [place] [facility] Left: Head SYNTHES MAXILLOFACIAL 421.527 / / Screw Ti Lo Pro Sd 4mm 400.834 - [id number] Implanted:Qty: 8 on 01/22/2024 by Neo Lopez III, MD at [place] [facility] Left: Head SYNTHES MAXILLOFACIAL 400.834 / / Cover Bur Hol 15mm 421.526 - [id number] Implanted:Qty: 1 on 01/22/2024 by Neo Lopez III, MD at [place] [facility] Left: Head SYNTHES MAXILLOFACIAL 421.526 / / documented as of this encounter Procedures Procedure Name Priority Date/Time Associated Diagnosis Comments OUTSIDE LAB RESULTS 04/02/2024 documented in this encounter Results * OUTSIDE LAB RESULTS (04/02/2024) 04/02/2024 us No Physician Data Unknown LABORATORY Final Result documented in this encounter Advance Directives Documents on File Type Date Recorded Patient Pump Service Supervisor Expl anation Power of Development Educator 01/24/2024 signed on 01/21/2024 POWER OF BAR HOST * Full Code (Latest Code Status on File) Date Activated Date Inactivated Comments 01/22/2024 3:03 PM 01/23/2024 7:55 PM This order reflects the patients wishes and were consensually agreed upon. Question Answer Comments Discussion of Advance Direct isa occurred with: Not Discussed due to patient's condition * Full Code Date Activated Date Inactivated Comments 01/22/2024 8:58 AM 01/22/2024 3:03 PM This orde r reflects the patients wishes and were consensually [...] Discussed due to patient's condition Care Teams Oil Well Cable Tool Operator Relationship Specialty Start Date End Date Beverly Gonzales CRNP [address] [address] PCP - General Nurse Practitioner 04/24/23 documented as of this encounter
--- OUTSIDE RECORDS SUMMARY | 2024-05-06 16:13 | External Medical Summary | Summary of Care ---
Author Name Unknown Organization [facility] Address [address] [facility] [place] [address] Phone [phone] Care Team Providers Care Label Maker Name Role Phone Beverly Gonzales DON Primary Care Provider Encounter Details Date Type Department Care Team (Late st Contact Info) Description 03/12/2024 Orders Only Hematology/Oncology [facility] [place] [address] [facility] [place] [id number] Keon Stanton [facility] [address] [facility] [address] Allergies No known active allergiesdocumented as of this encounter (statuses as of 03/12/2024) Medications BiPAP every night at bedtime . [...] as of this encounter (statuses as of 03/12/2024) Active Problems Problem Noted Date Diagnosed Date [...] hypoxemia, suboptimal titration from CPAP to BIPAP [facility] Hypersomnia 12/18/2014 documented as of this encounter (statuses as of 03/12/2024) Resolved Problems Problem Noted Date Diagnosed Date [...] as of this encounter (statuses as of 03/12/2024) Immunizations Name Administration Dates Next Due TDAP [...] Care Team (Late st Contact Info) Description 03/12/2024 3:30 PM EST Pharmacy Pharmacy Hematology Oncology [place] [address] [place] [address] [facility], [facility] Hem/Onc [facility] [place] [address] 05/06/2024 8:45 AM EST Imaging Radiology [address] [place] [address] 05/06/2024 8:45 AM EST Imaging Radiology [address], [place] [address] [place] [address] 05/19/2024 9:45 AM EST Office Visit Neurosurgery, [place] [address] [place] [address] Clinic, Brain Tumor Multidisciplinary [facility] [place] [address] 05/29/2024 8:00 AM EST Telemedicine Genetics Hem[place]c, [facility] [address] [place] [address] Brittany Tafoya, MS [address] [place] [address] Health Maintenance Due Date Last Done Comments COVID-19 Vaccine (#1) 1977 Pneumococcal Vaccine: Pediatrics (0 to 5 Years) and At-Risk Patients (6 to 64 Years) (1 of 2 - PCV) 1978 HIV Screening 12/22/1987 Diabetic Eye Exam 1990 Diabetic Foot Exam 1990 Hepatitis C Screening 1990 Hepatitis B Vaccine (1 of 3 - 19+ 3-dose series) 12/22/1991 Zoster Vaccines (1 of 2) 12/22/1991 [...] this encounter Medical Devices Implanted Type Area Yard Rigger Device Identifier Shelf Expiration Date Model / Serial / Lot Cover Bur Hol Ti Lo 17 421.527 - [id number] Implanted:Qty: 1 on 01/22/2024 by Neo Lopez III, [place] [facility] Left: Head SYNTHES MAXILLOFACIAL 421.527 / / Screw Ti Lo Pro Sd 4mm 400.834 - [id number] Implanted:Qty: 8 on 01/22/2024 by Neo Lopez III, MD [place] [facility] Left: Head SYNTHES MAXILLOFACIAL 400.834 / / Cover Bur Hol 15mm 421.526 - [id number] Implanted:Qty: 1 on 01/22/2024 by Neo Lopez III, MD at [place] [facility] Left: Head SYNTHES MAXILLOFACIAL 421.526 / / documented as of this encounter Procedures Procedure Name Priority Date/Time Associated Diagnosis Comments COMPREHENSIVE METABOLIC PANEL Routine 03/12/2024 CBC Routine 03/12/2024 documented in this encounter Results * (ABNORMAL) COMPREHENSIVE METABOLIC PANEL (03/12/2024) CREATININE 0.78 0.6 - 1.4 MG/DL OUTSIDE LAB (SEE SCANNED REPORT) EGFR 107.97 ML/MIN OUTSIDE LA B (SEE SCANNED REPORT) POTASSIUM 4.0 3.5 - 5.1 MMOL/L OUTSIDE LAB (SEE SCANNED REPORT) GLUCOSE 184(A) 70 - 99 MG/DL OUTSIDE LAB (SEE SCANNED REPORT) ALT-OUTSIDE LAB 36 7 - 52 U/L OUT SIDE LAB (SEE SCANNED REPORT) Blood Venous blood specimen / Unknown 03/12/2024 Keon Stanton MD LAB BLOOD ORDERABLES Final Res ult Performing Organization Address City/[facility] Co de Phone Number OUTSIDE LAB (SEE SCANNED REPORT) * CBC WITH WBC DIFFERENTIAL (03/12/2024) HGB 15.9 14.0 - 18.0 G/DL OUTSIDE LAB (SEE SCANNED REPORT) Blood Venous blood specimen / Unknown 03/12/2024 us Keon Stanton MD LAB BLOOD ORDERABLES Final Res ult Performing Organization Address City/[facility]/ZIP Co de Phone Number OUTSIDE LAB (SEE SCANNED REPORT) documented in this encounter Advance Directives Documents on File Type Date Recorded Patient Director Of Career Resources Expl anation Power of Cartridge Belt Puncher 01/24/2024 signed on 01/21/2024 POWER OF PRES[employer] * Full Code (Latest Code Status on [...] Discussed due to patient's condition Care Teams Label Maker Relationship Specialty Start Date End Date Beverly Gonzales CRNP [address] [place] [address] PCP - General Nurse Practitioner 04/24/23 documented as of this encounter
--- OUTSIDE RECORDS SUMMARY | 2024-05-06 16:13 | External Medical Summary | Summary of Care ---
Author Name Unknown Organization [facility] Address [address] [place] [address] Phone [phone] Care Team Providers Care Senior Project Engineer Name Role Phone Beverly Gonzales Aurora OCOHA Primary Care Provider Reason for Visit * Reason Comments Medication Management Encounter Details Date Type Department Care Team (Late st Contact Info) Description 02/29/2024 3:45 PM [facility] Pharmacy Pharmacy Hematology Oncology [facility] [address] [place] [address] [facility] Hem/Onc [address] [place], [place] [id number] Glioblastoma multiforme (HCC)* Allergies No known active allergiesdocumented as of this encounter (statuses as of 02/29/2024) Medications BiPAP every night at bedtime . Active Ventolin HFA 108 (90 Base) MCG/ACT Inhalation Aerosol Solution Inhale 2 Puffs by mouth every 4 hours as needed for Cough, Shortness of Breath or Wheezing. 18 g 1 04/24/19 24 Active Additional Information Patient not taking.Reported on 01/22/2024 metFORMIN HCl ER 500 MG Oral Tablet Extended Release 24 Hour (Glucophage XR) Take 2 tablets by mouth twice daily 120 Tablet 2 11/20/19 24 Active Losartan Potassium-HCTZ 50-12.5 MG Oral Tablet (Hyzaar) take 1 AND 1/2 tablets by mouth every morning 135 Tablet 12/24/19 24 Active Famotidine 20 MG Oral Tablet (Pepcid) Take 1 Tablet by mouth twice per day (morning, before bedtime). 30 Tablet 1 4 12:06 PM EDT 01/18/20 24 Active Additional Information Patient not taking.Reported on 02/04/2024 Acetaminophen 325 MG Oral Tablet (Tylenol) Take [...] Additional Information Patient not taking.Reported on 02/04/2024 Mounjaro 2.5 MG/0.5ML Subcutaneous Solution Auto-injector (Tirzepatide)Ind ications:Type 2 diabetes mellitus without complication, without long-term current use of insulin (HCC) INJECT 1 SYRINGE SUBCUTANEOUSLY ONCE A WEEK 2 mL 02/04/20 Active Ondansetron HCl 8 MG Oral Tablet (Zofran)Indicati ons:Glioblastoma multiforme (HCC) Take 1 Tablet by mouth every 8 hours as needed for Nausea. 60 Tablet 02/13/20 Active Temozolomide 180 MG Oral Capsule (Temodar)Indicat ions:Glioblastom a multiforme (HCC) Take 1 Capsule by mouth in the morning. 1 hour before radiation treatment and at the same time on non radiation days. Take medication on empty stomach.. 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 Patient has given verbal consent that staff from the [facility] can leave a voicemailwith treatment-related information: Yes This information can be left on Cell Communication: Left message Treatment: Medication: Temozolomide (Temodar) Indication/Staging/Diagnosis Code: GBM / C71.9 Dose Basis: 75mg/m2 (BSA 2.31m2) Dose: 180mg daily x 6 weeks Administration: 1 hour prior to RT and around the same time on non-radiation days Start Date: TBD Primary Order To Delivery Supervisor/Oncologist: Dr. Shakira Stanton Additional Therapy: RT @[facility] Supportive Care Meds: Ondansetron (to be re-ordered in beacon plan) Docusate Senokot Prophylactic Meds: Consider PJP ppx for ALC< 0.5 Relevant Chronic Medications: Category Medications Pertinent Notes Antihypertensives Losartan/HCTZ 50/12.5mg daily Per PCP Antidiabetic Tirzepatide Metformin ER 1000mg BID Per PCP Interval History: N/A Changes to medication list since last visit? No Upcoming surgeries or procedures? No Assessment and plan: Pt was to start RT on 02/26 LM to confirm that RT/TMZ started, assess tolerability, and coordinate weekly labs Lab orders were faxed to [facility] on 02/21 Follow up: 1 week Georgette Robles, PharmD, BCOP Ambulatory Clinical Pharmacist | Oral Chemotherapy Clinic [facility] 02/29/2024, 12:26 PM Monitoring Parameters: Estimated CrCl Serum creatinine: 0.86 mg/dL 02/27/24 0000 Estimated creatinine clearance: 120 mL/min Hepatitis panel 02/12/24 - negative, not immune test N/a Suggested lab monitoring Suggested labs: CBCd and CMP Treatment Parameters Parameters to be met: PLTS >= 100 Hgb >= 10 ANC >= 1.5 ALC >= 0.5 LFTs within normal range hold if >3 times upper limit normal Pertinent Labs: documented in this encounter Plan of Treatment Upcoming Encounters Date Type Department Care Team (Late st Contact Info) Description 03/05/2024 3:30 PM EST Pharmacy Pharmacy Hematology Oncology [address] [address] [facility] Hem[facility]c [facility] [place] [address] 03/11/2024 4:00 PM EST Office Visit Hematology/Oncology [facility] [address] [place] [address] Ana Oliver CRNP [address] [place] [address] 05/06/2024 8:45 AM EST Imaging Radiology [address] 132 [facility] [address] 05/06/2024 8:45 AM EST Imaging Radiology [address] 132 [facility] [place] [address] 05/19/2024 9:45 AM EST Office Visit Neurosurgery, [address] [address] Clinic, Brain Tumor Multidisciplinary [address] [place] [address] 05/29/2024 8:00 AM EST Telemedicine Genetics [place], [facility] [address] [place] [address] Brittany Tafoya, MS [address] [place] [address] Health Maintenance Due Date Last Done Comments [...] Screening 06/14/2019 06/13/2018 Albumin/Creatinine Ratio 05/04/2023 05/04/2022, /2 03/2021 Influenza Vaccine (FLU shot) (#1) 2023 HbA1c 08/11/2024 02/12/2024, 1108/2023, 02/26/2023, Additional history exists DTap/Tdap Vaccines (2 - Td or Tdap) 11/14/2024 11/14/2014 GFR 02/26/2025 02/27/2024, 01/24, 01/22/2024, Additional history exists Lipid Panel 02/11/2029 02/12/2024, 020 11/2022, 11/14/2014 HPV (Gardasil) Vaccine Aged Out No lo nger eligible based on patient's age to complete this topic MENINGOCOCCAL (MENACTRA/MENVEO) Aged Out No longer eligible based on patient's age to complete this topic documented as of this encounter Medical Devices Implanted Type Area Food And Drink Factory Workers Device Identifier Shelf Expiration Date Model / Serial / Lot Cover Bur Hol Ti Lo 17 421.527 - [id number] Implanted:Qty: 1 on 01/22/2024 by Neo Lopez III[place] [facility] [place] Head SY[employer]THES MAXILLOFACIAL 421.527 / / Screw Ti Lo Pro Sd 4mm 400.834 - [id number] Implanted:Qty: 8 on 01/22/2024 by Neo Lopez III, [place] [facility] [place]: Head [employer]ES MAXILLOFACIAL 400.834 / / Cover Bur Hol 15mm 421.526 - [id number] Implanted:Qty: 1 on 01/22/2024 by Neo Lopez III, [place] [facility] [place]: Head [employer]ES MAXILLOFACIAL 421.526 / / documented as of this encounter Visit Diagnoses Diagnosis Glioblastoma multiforme (HCC)- Primary Malignant neoplasm of brain, unspecified site documented in this encounter Advance Directives Documents on File Type Date Recorded Patient Stewardesses Teacher Expl anation Power of Automotive Generator Repairer 01/24/2024 signed on 01/21/2024 POWER OF TOOL AND DIE DESIGNER * Full Code (Latest Code Status on [...] due to patient's condition Care Teams Senior Project Engineer Relationship Specialty Start Date End Date Beverly Gonzales CRNP [address] [place] [address] PCP - General Nurse Practitioner 04/24/23 documented as of this encounter"
--- OUTSIDE RECORDS SUMMARY | 2024-05-06 16:13 | External Medical Summary | Summary of Care ---
Author Name Unknown Organization [facility] Address [address] [place] [address] Phone [phone] Care Team Providers Care Peanut Cleaner Name Role Phone Beverly Gonzales Aurora OCHOA Primary Care Provider Reason for Visit * Reason Comments Medication Management Encounter Details Date Type Department Care Team (Late st Contact Info) Description 03/12/2024 3:30 PM [facility] Pharmacy Pharmacy Hematology Oncology [facility] [address] [place] [address] [facility], [facility] Hem/Onc [address] [place], [place] [id number] Glioblastoma multiforme (HCC)* Allergies No known active [...] suboptimal titration from CPAP to BIPAP [facility] Hypersomnia 12/18/2014 documented as of this encounter [...] this encounter Progress Notes * Georgette Robles, [facility] - 03/12/2024 4:29 PM EST MEDICATION THERAPY MANAGEMENT TEMOZOLOMIDE TREATMENT EDUCATION NOTE Mariano Guillen [phone] Patient Phone Numbers Preferred Lab: [facility] Specialty Pharmacy: P Treatment consent complete: yes Date: 02/07/24 Precertification complete: yes Date: 02/13/24 Patient has given verbal consent that staff from the Oral Chemotherapy Clinic can speak to Grace Guillen [phone] regarding their treatment. Patient has given verbal [...] on non-radiation days Start Date: 02/27/2024 Primary Physics Tutor/Oncologist: Dr. Shakira Stanton Additional Therapy: RT @[facility] Supportive Care Meds: Ondansetron (to be re-ordered in beacon plan) Docusate Senokot Prophylactic Meds: Consider PJP ppx for ALC< 0.5 Relevant Chronic Medications: Category Medications Pertinent Notes Antihypertensives Losartan/HCTZ 50/12.5mg daily Per PCP Antidiabetic Tirzepatide Metformin ER 1000mg BID Per PCP Interval History: Patient denies any acute adverse effects with temozolomide. Reports worsening GERD symptoms. Changes to medication list since last visit? No Upcoming surgeries or procedures? No Assessment and plan: Reviewed 03/12 labs from [facility]: WBC 12.94 Hgb 15.9 PLT 200K ANC 11.45 ALC 0.68 Continue temozolomide PJP ppx not indicated ALC >0.5 Continue temodar and weekly labs Follow up: 1 week Georgette Robles, PharmD, OP Ambulatory Clinical Pharmacist | Oral Chemotherapy Clinic [facility] 03/12/2024, 4:32 PM Monitoring Parameters: Estimated CrCl Serum creatinine: [...] >3 times upper limit normal Pertinent Labs: * Mela Edward OSA - 03/12/2024 3:30 PM EST MEDICATION THERAPY MANAGEMENT TEMOZOLOMIDE TREATMENT EDUCATION NOTE Mariano Guillen [phone] Patient Phone Numbers Preferred Lab: [facility] Specialty Pharmacy: [facility] Treatment consent complete: yes Date: 02/07/24 Precertification complete: yes Date: 02/13/24 Patient has given verbal consent that staff from the [facility]otherapy Clinic can speak to Grace Guillen [phone] regarding their treatment. Patient has given verbal consent that staff from the [facility] Chemotherapy Clinic can leave a voicemailwith treatment-related information: Yes This information can be left on Cell Communication: Spoke to: Other: Haylee @[facility] Lab Treatment: Medication: Temozolomide (Temodar) Indication/Staging/Diagnosis Code: GBM / C71.9 Dose Basis: 75mg/m2 (BSA 2.31m2) Dose: 180mg daily x 6 weeks Administration: 1 hour prior to RT and around the same time on non-radiation days Start Date: 02/27/2024 Primary Physics Tutor/Oncologist: Dr. Shakira Stanton Farafaelg labs results from today for review. ELY [place] Special Inspector Pharmacy Hematology Oncology Oral Chemotherapy Clinic Medication Therapy Disease Management [facility] 03/12/24 1:01 PM Time Spent on Encounter: 6 - 10 minutes Encounter Group: Hematology Encounter Interventions Item Category: Oral Chemotherapy Temozolomide Problem/Rationale: Safety: Needs additional monitoring - Medication Requires monitoring Pharmacist Intervention(s): Lab work requested Magnitude of Intervention: Monitoring with no interventions (Level 0) documented in this encounter Plan of Treatment Upcoming Encounters Date Type Department Care Team (Late st Contact Info) Description 03/20/2024 3:30 PM EST Pharmacy Pharmacy Hematology Oncology [facility] [place] [address] [place] [address] [facility], [facility] Hem/Onc [address] [place] [address] 05/06/2024 8:45 AM EST Imaging Radiology [address] [place] [address] 05/06/2024 8:45 AM EST Imaging Radiology [address] [place] [address] 05/19/2024 9:45 AM EST Office Visit Neurosurgery, [place] [address] [place] [address] Clinic, Brain Tumor Multidisciplinary [address] [place] [address] 05/29/2024 8:00 AM EST Telemedicine Genetics HemOnc, [facility] 100 [place] [address] Brittany Tafoya, MS [address] [place] [address] Health Maintenance Due Date Last Done Comments [...] this encounter Medical Devices Implanted Type Area Database Coordinator Device Identifier Shelf Expiration Date Model / Serial / Lot Cover Bur Hol Ti Lo 17 421.527 - [id number] Implanted:Qty: 1 on 01/22/2024 by Neo Lopez III, MD at [place] [facility] [place] Left: Head SYNTHES MAXILLOFACIAL 421.527 / / Screw Ti Lo Pro Sd 4mm 400.834 - [id number] Implanted:Qty: 8 on 01/22/2024 by Neo Lopez III, MD at [place] [facility] [place] Left: Head SYNTHES MAXILLOFACIAL 400.834 / / Cover Bur Hol 15mm 421.526 - [id number] Implanted:Qty: 1 on 01/22/2024 by Neo Lopez III, MD at [place] [facility] [place] Left: Head [facility] MAXILLOFACIAL 421.526 / / documented as of this encounter Visit Diagnoses Diagnosis Glioblastoma multiforme (HCC)- Primary Malignant neoplasm of brain, unspecified site documented in this encounter Advance Directives Documents on File Type Date Recorded Patient Nurses Superintendent Expl anation Power of Physician Assistant Surgery 01/24/2024 signed on 01/21/2024 POWER OF HAND LOOM WEAVER * Full Code (Latest Code Status on [...] Discussed due to patient's condition Care Teams Peanut Cleaner Relationship Specialty Start Date End Date Beverly Gonzales CRNP [address] [place] [address] PCP - General Nurse Practitioner 04/24/23 documented as of this encounter"
--- OUTSIDE RECORDS SUMMARY | 2024-05-06 16:13 | External Medical Summary | Summary of Care ---
Author Name Unknown Organization [facility] Address [address] [facility] [place] [address] Phone [phone] Care Team Providers Care Assistant Press Operator Name Role Phone Beverly Gonzaleslle DON Primary Care Provider Reason for Visit * Reason Onset Date Comments Medication Refill 03/05/2024 Encounter Details Date Type Department Care Team (Late st Contact Info) Description 03/05/2024 Refill Hematology/Oncology [facility] Sue [place] [address] [facility] [place] [address] Letty Stanton MD 200 [facility] [place] [address] Glioblastoma multiforme (HCC)*; Gastroesophageal reflux disease without esophagitis Allergies No known active allergiesdocumented as of this encounter (statuses as of 03/05/2024) Medications BiPAP every night at bedtime . [...] stomach.. 42 Capsule 4 1:05 PM EST 11/20/20 24 Active metFORMIN HCl ER 500 MG Oral Tablet Extended Release 24 Hour (Glucophage XR) Take 2 tablets by mouth twice daily 120 Tablet 5 03/01/20 24 Active Famotidine 20 MG Oral Tablet (Pepcid)Indicati ons:Glioblastoma multiforme (HCC),Gastroesop hageal reflux disease without esophagitis Take 1 Tablet by mouth in the morning and 1 Tablet before bedtime. 60 Tablet 5 03/05/20 24 Active Famotidine 20 MG Oral Tablet (Pepcid) Take 1 Tablet by mouth twice per day (morning, before bedtime). 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 Authorizing Provider: LETTY STANTON documented in this encounter Plan of Treatment Upcoming Encounters Date Type Department Care Team (Late st Contact Info) Description 03/11/2024 4:00 PM EST Office Visit Hematology/Oncology [facility] [place] [address] [place] [address] Ana Oliver CRNP 400 [facility] [place] [address] 03/12/2024 3:30 PM EST Pharmacy Pharmacy Hematology Oncology [facility] [address] [place] [address] [facility], [facility] Hem/Onc [address] [place] [address] 05/06/2024 8:45 AM EST Imaging Radiology [address], [place] [address] [place] [address] 05/06/2024 8:45 AM EST Imaging Radiology [address], [place] [address] [place] [address] 05/19/2024 9:45 AM EST Office Visit Neurosurgery, [place] [address] [place] [address] Clinic, Brain Tumor Multidisciplinary [address] [place] [address] 05/29/2024 8:00 AM EST Telemedicine Genetics HemOnc, [facility] [address] [place] [address] Brittany Tafoya, MS [address] [place] [address] Health Maintenance Due Date Last Done Comments [...] this encounter Medical Devices Implanted Type Area Emergency Crew Supervisor Device Identifier Shelf Expiration Date Model / Serial / Lot Cover Bur Hol Ti Lo 17 421.527 - [id number] Implanted:Qty: 1 on 01/22/2024 by Neo Lopez III, MD at [place] [facility] [place] Left: Head [employer]ES MAXILLOFACIAL 421.527 / / Screw Ti Lo Pro Sd 4mm 400.834 - [id number] Implanted:Qty: 8 on 01/22/2024 by Neo Lopez III, MD at [place] [facility] [place] Left: Head [employer] MAXILLOFACIAL 400.834 / / Cover Bur Hol 15mm 421.526 - [id number] Implanted:Qty: 1 on 01/22/2024 by Neo Lopez III, MD at [place] [facility] [place] Left: Head [employer] MAXILLOFACIAL 421.526 / / documented as of this encounter Visit Diagnoses Diagnosis Glioblastoma multiforme (HCC)- Primary Malignant neoplasm of brain, unspecified site Gastroesophageal reflux disease without esophagitis Esophageal reflux documented in this encounter Advance Directives Documents on File Type Date Recorded Patient Extension Edger Expl anation Power of Cadd Manager 01/24/2024 signed on 01/21/2024 POWER OF DAIRY TESTER * Full Code (Latest Code Status on [...] Discussed due to patient's condition Care Teams Assistant Press Operator Relationship Specialty Start Date End Date Beverly Gonzales CRNP [address] [place] [address] PCP - General Nurse Practitioner 04/24/23 documented as of this encounter
--- OUTSIDE RECORDS SUMMARY | 2024-05-06 16:13 | External Medical Summary | Summary of Care ---
Author Name Unknown Organization [facility] Address [address] [facility] [place] [address] Phone [phone] Care Team Providers Care Mail Carrier Name Role Phone Beverly Cabezas Primary Care Provider Reason for Visit * Reason Comments eRx-Medication Refill Encounter Details Date Type Department Care Team (Late st Contact Info) Description 03/09/2024 Refill Family Practice [facility] [address] [address] Beverly Cabezas CRNP [address] [place] [address] Type 2 diabetes mellitus without complication, without long-term current use of insulin (HCC) Allergies No known active allergiesdocumented as of this encounter (statuses as of 03/10/2024) Medications BiPAP every night at bedtime . Active Ventolin HFA 108 (90 Base) MCG/ACT Inhalation Aerosol Solution Inhale 2 Puffs by mouth every 4 hours as needed for Cough, Shortness of Breath or Wheezing. 18 g 1 Active Additional Information Patient not taking.Reported on 01/22/2024 Losartan Potassium-HCTZ 50-12.5 MG Oral Tablet (Hyzaar) take 1 AND 1/2 tablets by mouth every morning 135 Tablet Active Acetaminophen 325 MG Oral Tablet (Tylenol) [...] mouth in the morning. 10 Tablet 01/23/20 3:38 PM EDT Active Additional Information Patient [...] 1 Tablet before bedtime. 60 Tablet 5 024 Active Mounjaro 2.5 MG/0.5ML Subcutaneous Solution Auto-injector (Tirzepatide)In dications:Type 2 diabetes mellitus without complication, without long-term current use of insulin (HCC) INJECT 1 SYRINGE SUBCUTANEOUSLY ONCE A WEEK 4 mL 1 024 Active Mounjaro 2.5 MG/0.5ML Subcutaneous Solution Auto-injector (Tirzepatide)In dications:Type 2 diabetes mellitus without complication, without long-term current use of insulin ([facility]) INJECT 1 SYRINGE SUBCUTANEOUSLY ONCE A WEEK 2 mL 024 2023 Discontinued documented as of this encounter (statuses as of 03/10/2024) Active Problems Problem Noted Date Diagnosed Date [...] hypoxemia, suboptimal titration from CPAP to BIPAP [facility] 12/18/2014 documented as of this encounter (statuses as of 03/10/2024) Resolved Problems Problem Noted Date Diagnosed Date [...] as of this encounter (statuses as of 03/10/2024) Immunizations Name Administration Dates Next Due TDAP [...] 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 [address] Ana Oliver CRNP 400 [facility] [place] [address] 03/12/2024 3:30 PM EST Pharmacy Pharmacy Hematology Oncology [address] [address] [facility] Hem/Onc [address] [place] [address] 05/06/2024 8:45 AM EST Imaging Radiology [address] [place] [address] 05/06/2024 8:45 AM EST Imaging Radiology [address] [place] [address] 05/19/2024 9:45 AM EST Office Visit Neurosurgery, [place] [address] [place] [address] Clinic, Brain Tumor Multidisciplinary [address] [place] [address] 05/29/2024 8:00 AM EST Telemedicine Genetics HemOn, [facility] [address] [place] [address] Brittany Tafoya, MS [address] [place] [address] Health Maintenance Due Date Last Done Comments [...] this encounter Medical Devices Implanted Type Area Communications Department Head Device Identifier Shelf Expiration Date Model / Serial / Lot Cover Bur Hol Ti Lo 17 421.527 - [id number] Implanted:Qty: 1 on 01/22/2024 by Neo Lopez III, MD at OR [facility] Left: Head SYNTHES MAXILLOFACIAL 421.527 / / Screw Ti Lo Pro Sd 4mm 400.834 - [id number] Implanted:Qty: 8 on 01/22/2024 by Neo Lopez III, MD at OR [facility] Left: Head SYNTHES MAXILLOFACIAL 400.834 / / Cover Bur Hol 15mm 421.526 - [id number] Implanted:Qty: 1 on 01/22/2024 by Neo Lopez III, MD at OR [facility] Left: Head SYNTHES MAXILLOFACIAL 421.526 / / documented as of this encounter Visit Diagnoses Diagnosis Type 2 diabetes mellitus without complication, without long-term current use of insulin (HCC) documented in this encounter Advance Directives Documents on File Type Date Recorded Patient Street Light Servicer Supervisor Expl anation Power of Dock Boss 01/24/2024 signed on 01/21/2024 POWER OF AFLOAT CRYPTOLOGIC MANAGER * Full Code (Latest Code Status on [...] Discussed due to patient's condition Care Teams Mail Carrier Relationship Specialty Start Date End Date Beverly Cabezas CRNP [address] [place] [address] PCP - General Nurse Practitioner 04/24/23 documented as of this encounter
--- OUTSIDE RECORDS SUMMARY | 2024-05-06 16:13 | External Medical Summary | Summary of Care ---
Author Name Unknown Organization [facility] Address [address] [place] [address] Phone [phone] Care Team Providers Care Fixed Capital Clerk Name Role Phone Beverly Gonzales Aurora OCHOA Primary Care Provider Reason for Visit * Reason Comments Medication Management Encounter Details Date Type Department Care Team (Late st Contact Info) Description 03/05/2024 3:30 PM [facility] Pharmacy Pharmacy Hematology Oncology [facility] [address] [place] [address] [facility] Hem/Onc [address] [place], [place] [id number] Glioblastoma multiforme (HCC)* Allergies No known active [...] by mouth every morning 135 Tablet 12/24/19 Active Famotidine 20 MG Oral Tablet (Pepcid) Take 1 Tablet by mouth twice per day (morning, before bedtime). 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 Patient has given verbal [...] on non-radiation days Start Date: 02/27/2024 Primary Design Agent/Oncologist: Dr. Shakira Stanton Additional Therapy: RT @[facility] Supportive Care Meds: Ondansetron (to be re-ordered [...] or procedures? No Assessment and plan: Reviewed 03/05 labs from [facility]: WBC 15.46 Hgb 16.2 PLT 253K ANC 13.11 ALC 1.10 Continue temozolomide PJP ppx not indicated ALC >0.5 Discussed GERD symptoms likely from steroid dexamethasone. Reports while admitted he did take with famotidine but since has run out of refills and not taking. Pended refill to Dr Stanton. TT sent to Fritz to make aware to sign. Reviewed to take steroid with food, also should wait 2 hours after eating to take temozolomide Continue weekly labs Follow up: 1 week Mel Parekh PharmD Ambulatory Clinical Pharmacist | Oral Chemotherapy Clinic [facility] 03/05/2024, 2:20 PM Monitoring Parameters: Estimated CrCl Serum creatinine: [...] >3 times upper limit normal Pertinent Labs: Time Spent on Encounter: 11 - 15 minutes Encounter Group: Hematology Encounter Interventions Item Category: Oral Chemotherapy Temozolomide Problem/Rationale: Safety: Needs additional monitoring - Medication Requires monitoring Pharmacist Intervention(s): Lab monitoring Magnitude of Intervention: Monitoring with direction (Level 1) Second Item Second Item Category: Acid Suppressive Famotidine Problem/Rationale: Indication: Needs additional medication therapy - Untreated condition Pharmacist Intervention(s): Clarification with Provider, Education provided, Medication prescribed,and Refill sent Magnitude of Intervention: Modification of medications for symtomatic patients (Level 3) documented in this encounter Plan of Treatment Upcoming Encounters Date Type Department Care Team (Late st Contact Info) Description 03/11/2024 4:00 PM EST Office Visit Hematology/Oncology [place] [address] [facility] [place] [address] Ana Oliver CRNP [address] [place] [address] 03/12/2024 3:30 PM EST Pharmacy Pharmacy Hematology Oncology [address] [place] [address] [facility] Hem/Onc [address] [place] [address] 05/06/2024 8:45 AM EST Imaging Radiology [address] [facility] [address] 05/06/2024 8:45 AM EST Imaging Radiology [address] [facility] [address] 05/19/2024 9:45 AM EST Office Visit Neurosurgery, [place] [address] [place] [address] Clinic, Brain Tumor Multidisciplinary [address] [place] [address] 05/29/2024 8:00 AM EST Telemedicine Genetics HemOnc, [facility] [address] [place] [address] Brittany Tafoya, [place] [address] [place] [address] Health Maintenance Due Date Last Done Comments [...] this encounter Medical Devices Implanted Type Area Laser Beam Trim Operator Device Identifier Shelf Expiration Date Model / Serial / Lot Cover Bur Hol Ti Lo 17 421.527 - [id number] Implanted:Qty: 1 on 01/22/2024 by Neo Lopez III, MD at [place] [facility] Left: Head SYNTHES MAXILLOFACIAL 421.527 / / Screw Ti Lo Pro Sd 4mm 400.834 - [id number] Implanted:Qty: 8 on 01/22/2024 by Neo Lopez III, MD at OR [facility] Left: Head SYNTHES MAXILLOFACIAL 400.834 / / Cover Bur Hol 15mm 421.526 - [id number] Implanted:Qty: 1 on 01/22/2024 by Neo Lopez III, MD at OR [facility] Left: Head SYNTHES MAXILLOFACIAL 421.526 / / documented as of this encounter Visit Diagnoses Diagnosis Glioblastoma multiforme (HCC)- Primary Malignant neoplasm of brain, unspecified site documented in this encounter Advance Directives Documents on File Type Date Recorded Patient Break Off Worker Expl anation Power of Aquarium Specialist 01/24/2024 signed on 01/21/2024 POWER OF ATHLETIC SHOE DESIGNER * Full Code (Latest Code Status [...] Discussed due to patient's condition Care Teams Fixed Capital Clerk Relationship Specialty Start Date End Date Beverly Gonzales CRNP [address] [place] [address] PCP - General Nurse Practitioner 04/24/23 documented as of this encounter"
--- OUTSIDE RECORDS SUMMARY | 2024-05-06 16:13 | External Medical Summary | Summary of Care ---
Author Name Unknown Organization [facility] Address [address] [place] [address] Phone [phone] Care Team Providers Care Wind Field Service Manager Name Role Phone Beverly Gonzales Aurora OCHOA Primary Care Provider Reason for Visit * Reason Comments Medication Management Encounter Details Date Type Department Care Team (Late st Contact Info) Description 02/22/2024 3:45 PM [facility] Hematology Oncology [facility] [address] [place] [address] [place], [facility] Hem/Onc [address] [place], [place] [phone] Glioblastoma multiforme (HCC)* Allergies No known active allergiesdocumented as of this encounter (statuses as of 02/22/2024) Medications BiPAP every night at bedtime . 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 Not [...] encounter Progress Notes * Georgette Robles, [facility] - 02/22/2024 2:43 PM EST MEDICATION THERAPY MANAGEMENT TEMOZOLOMIDE TREATMENT EDUCATION NOTE Mariano Guillen [phone] Patient Phone Numbers Preferred Lab: [facility] Specialty Pharmacy: [facility] ([facility] copy below into specialty comments) Treatment consent complete: yes Date: 02/07/24 Precertification complete: yes Date: 02/13/24 Patient has given verbal consent that staff from the Oral Chemotherapy Clinic can speak to Augusta Guillen [phone] regarding their treatment. Patient has given verbal [...] on non-radiation days Start Date: TBD Primary Safety Admin Assistant/Oncologist: Dr. Shakira Stanton Additional Therapy: RT @[facility] Supportive Care Meds: Ondansetron (to be re-ordered in beacon plan) Docusate Senokot Prophylactic Meds: Consider PJP ppx for ALC< 0.5 Relevant Chronic Medications: Category Medications Pertinent Notes Antihypertensives Losartan/HCTZ 50/12.5mg daily Per PCP Antidiabetic Tirzepatide Metformin ER 1000mg BID Per PCP Medication education: Confirmed pt has received information regarding goals and duration of therapy: yes Reviewed dosing and administration: yes Reviewed importance of medication compliance (document recommendations if barriers identified): yes Reviewed appropriate storage conditions: no Reviewed handling precautions: yes Reviewed handling body fluids and waste: no Reviewed side effects, monitoring, and supportive care measures: yes Confirmed pt has received written information about drug therapy: yes Changes to medication list since last visit: no Drug interaction assessment: Treatment plan and current medication list evaluated for drug-drug interactions. No clinically significant drug interaction identified Does patient rely on caregiver for medication management? no Assessment and plan: Pt verbalized understanding to information provided. All questions answered to the patient's satisfaction Pt was educated about role of Oral Chemotherapy Clinic and pharmacist in medication management, andplan for follow up. Reviewed that he will be starting RT on 02/26, and same day he will start the temodar Weekly labs (likely at [facility]) Orders faxed to [phone] Follow up: 02/28 Georgette Robles, PharmD, BCOP Ambulatory Clinical Pharmacist | Oral Chemotherapy Clinic [facility] 02/22/2024, 2:49 PM Monitoring Parameters: Estimated CrCl Serum creatinine: 0.8 mg/dL 02/12/24 1300 Estimated creatinine clearance: 129 mL/min Hepatitis panel 02/12/24 - negative, not [...] st Contact Info) Description 02/29/2024 3:45 PM EST Pharmacy Pharmacy Hematology Oncology [facility] [address] [place] [address] [place], [facility] Hem/Onc [address] [place] [address] 03/11/2024 4:00 PM EST Office Visit Hematology/Oncology Ayleen Rogers [place] [address] [facility] [address] Ana Oliver CRNP 400 [facility] [place] [address] 05/06/2024 8:45 AM EST Imaging Radiology [address], [place] 132 [facility] [place] [address] 05/06/2024 8:45 AM EST Imaging Radiology [address], [place] [address] [facility] [place] [address] 05/19/2024 9:45 AM EST Office Visit Neurosurgery, [place] [address] [place] [address] Clinic, Brain Tumor Multidisciplinary [address] [place] [address] 05/29/2024 8:00 AM EST Telemedicine Genetics HemOnc, [facility] [address] [place] [address] Brittany Tafoya, MS 132 [place] [address] Health Maintenance Due Date Last Done Comments [...] - Td or Tdap) 11/14/2024 11/14/2014 GFR 02/11/2025 02/12/2024, 1011/2023, 01/16/2024, Additional history exists Lipid Panel 02/11/2029 02/12/2024, 02/0 11/2022, 11/14/2014 HPV (Gardasil) Vaccine Aged Out No lo nger eligible based on patient's age to complete this topic MENINGOCOCCAL (MENACTRA/MENVEO) Aged Out No longer eligible based on patient's age to complete this topic documented as of this encounter Medical Devices Implanted Type Area Clay Puddler Device Identifier Shelf Expiration Date Model / Serial / Lot Cover Bur Hol Ti Lo 17 421.527 - [id number] Implanted:Qty: 1 on 01/22/2024 by Neo Lopez III, MD at OR [facility] Left: Head SYNTHES MAXILLOFACIAL 421.527 / / Screw Ti Lo Pro Sd 4mm 400.834 - [id number] Implanted:Qty: 8 on 01/22/2024 by Neo Lopez III, MD at OR [facility] Left: Head SYNTHES MAXILLOFACIAL 400.834 / / Cover Bur Hol 15mm 421.526 - [id number] Implanted:Qty: 1 on 01/22/2024 by Neo Lopez III, MD at OR [facility] Left: Head SYNTHES MAXILLOFACIAL 421.526 / / documented as of this encounter Visit Diagnoses Diagnosis Glioblastoma multiforme (HCC)- Primary Malignant neoplasm of brain, unspecified site documented in this encounter Advance Directives Documents on File Type Date Recorded Patient Crutching Contractor Expl anation Power of Circular Saw Operator 01/24/2024 signed on 01/21/2024 POWER OF SALES REPRESENTATIVE [employer] * Full Code (Latest Code Status on [...] Discussed due to patient's condition Care Teams Wind Field Service Manager Relationship Specialty Start Date End Date Beverly Gonzales CRNP [address] [place] [address] PCP - General Nurse Practitioner 04/24/23 documented as of this encounter"
--- OUTSIDE RECORDS SUMMARY | 2024-05-06 16:13 | External Medical Summary | Summary of Care ---
Author Name Unknown Organization [facility] Address [address] [place] [address] Phone [phone] Care Team Providers Care Airplane Pilot Commercial Name Role Phone Beverly Gonzales Aurora OCHOA Primary Care Provider Reason for Visit * Reason Comments Medication Management Encounter Details Date Type Department Care Team (Late st Contact Info) Description 02/19/2024 3:45 PM [facility] Pharmacy Pharmacy Hematology Oncology [facility] [address] [place] [address] [facility], [facility] Hem/Onc [address] [place], [place] [phone] Glioblastoma multiforme (HCC)* Allergies No known active allergiesdocumented as of this encounter (statuses as of 02/19/2024) Medications BiPAP every night at bedtime . 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 Shakira Stanton Additional Therapy: RT @[facility] Supportive Care Meds: Ondansetron (to be re-ordered in beacon plan) Docusate Senokot Prophylactic Meds: Consider PJP ppx for ALC< 0.5 Relevant Chronic Medications: Category Medications Pertinent Notes Antihypertensives Losartan/HCTZ 50/12.5mg daily Per PCP Antidiabetic Tirzepatide Metformin ER 1000mg BID Per PCP LM to provide education. RT starting on 02/26 at [facility] Mel Jackson PharmD Ambulatory Clinical Pharmacist | Oral Chemotherapy Clinic [facility] 02/19/2024, 10:22 AM documented in this encounter Plan of Treatment Upcoming Encounters Date Type Department Care Team (Late st Contact Info) Description 02/22/2024 3:45 PM EST Pharmacy Pharmacy Hematology Oncology [facility] [address] [place] [address] [facility], [facility] Clinic Hem/Onc [address] [place] [address] 03/11/2024 4:00 PM EST Office Visit Hematology/Oncology [place] [address] [place] [phone] Ana Oliver CRNP 400 [facility] [place] [address] 05/06/2024 8:45 AM EST Imaging Radiology [address], [place] [address] [facility] [address] 05/06/2024 8:45 AM EST Imaging Radiology [address], [place] [facility] [address] 05/19/2024 9:45 AM EST Office Visit Neurosurgery, [place] [address] [place] [address] Clinic, Brain Tumor Multidisciplinary [address] [place] [address] 05/29/2024 8:00 AM EST Telemedicine Genetics HemOnc, [facility] [address] [place] [address] Brittany Tafoya, [place] 132 [facility] [address] Health Maintenance Due Date Last Done Comments [...] or Tdap) 11/14/2024 11/14/2014 GFR 02/11/2025 02/12/2024, 12/25, 01/16/2024, Additional history exists Lipid Panel 02/11/2029 02/12/2024, 0211/2022, 11/14/2014 HPV (Gardasil) Vaccine Aged Out No lo nger eligible based on patient's age to complete this topic MENINGOCOCCAL (MENACTRA/MENVEO) Aged Out No longer eligible based on patient's age to complete this topic documented as of this encounter Medical Devices Implanted Type Area Commercial Solar Sales Consultant Device Identifier Shelf Expiration Date Model / Serial / Lot Cover Bur Hol Ti Lo 17 421.527 - [id number] Implanted:Qty: 1 on 01/22/2024 by Neo Lopez III, MD at [place] [facility] Left: Head SYNTHES MAXILLOFACIAL 421.527 / / Screw Ti Lo Pro Sd 4mm 400.834 - [id number] Implanted:Qty: 8 on 01/22/2024 by Neo Lopez III, MD at OR [facility] Left: Head SYNTHES MAXILLOFACIAL 400.834 / / Cover Bur Hol 15mm 421.526 - [id number] Implanted:Qty: 1 on 01/22/2024 by Neo Lopez III, MD at OR [facility] Left: Head SYNTHES MAXILLOFACIAL 421.526 / / documented as of this encounter Visit Diagnoses Diagnosis Glioblastoma multiforme (HCC)- Primary Malignant neoplasm of brain, unspecified site documented in this encounter Advance Directives Documents on File Type Date Recorded Patient Chief Executive Expl anation Power of Aerodynamics Engineer 01/24/2024 signed on 01/21/2024 POWER OF METAL SPINNER * Full Code (Latest Code Status on [...] Discussed due to patient's condition Care Teams Airplane Pilot Commercial Relationship Specialty Start Date End Date Beverly Gonzales CRNP [address] [place] [address] PCP - General Nurse Practitioner 04/24/23 documented as of this encounter"
--- OUTSIDE RECORDS SUMMARY | 2024-05-06 16:13 | External Medical Summary | Summary of Care ---
Author Name Unknown Organization [facility] Address [address] [place] [place] [address] Phone [phone] Care Team Providers Care Clinical Program Manager Name Role Phone Beverly Gonzales DON Primary Care Provider Reason for Visit * Reason Onset Date Comments Forms Request 03/14/2024 Encounter Details Date Type Department Care Team (Late st Contact Info) Description 03/14/2024 Telephone Hematology/Oncology [facility] [address] [facility] [place] [address] Keon Stanton MD [facility] [address] Forms Request Allergies No known active allergiesdocumented as of this encounter (statuses as of 03/14/2024) Medications BiPAP every night at bedtime . [...] as of this encounter (statuses as of 03/14/2024) Active Problems Problem Noted Date Diagnosed Date [...] hypoxemia, suboptimal titration from CPAP to BIPAP [facility] Hypersomnia 12/18/2014 documented as of this encounter (statuses as of 03/14/2024) Resolved Problems Problem Noted Date Diagnosed Date Resolved Date Body mass index (BMI) of 45. 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 Called and spoke with patient, patient states he does not "believe" he needs this form. He states that his , Grace, printed this form out. Patient states he will discuss this form with his . Advised patient that typically our office does not fill out Disability forms and that we will awaitthe response he receives from his . Patient verbalized understanding. documented in this encounter Plan of Treatment Upcoming Encounters Date Type Department Care Team (Late st Contact Info) Description 03/20/2024 3:30 PM EST Pharmacy Pharmacy Hematology Oncology [address] [address] [facility] Hem/Onc [address] [place] [address] 05/06/2024 8:45 AM EST Imaging Radiology [address] 132 [place] [address] 05/06/2024 8:45 AM EST Imaging Radiology [address] 132 [facility] [place] [address] 05/19/2024 9:45 AM EST Office Visit Neurosurgery, [address] [address] Clinic, Brain Tumor Multidisciplinary [facility] [place] [address] 05/29/2024 8:00 AM EST Telemedicine Genetics [place]c, [facility] [address] [place] [address] Brittany Tafoya, MS [address] [place] [address] Health Maintenance Due Date Last Done Comments [...] or Tdap) 11/14/2024 11/14/2014 GFR 03/12/2025 03/12/2024, 120 06/2023, 02/12/2024, Additional history exists Lipid Panel 02/11/2029 02/12/2024, 0211/2022, 11/14/2014 HPV (Gardasil) Vaccine Aged Out No lo nger eligible based on patient's age to complete this topic MENINGOCOCCAL (MENACTRA/MENVEO) Aged Out No longer eligible based on patient's age to complete this topic documented as of this encounter Medical Devices Implanted Type Area Planer Feeder Device Identifier Shelf Expiration Date Model / Serial / Lot Cover Bur Hol Ti Lo 17 421.527 - [id number] Implanted:Qty: 1 on 01/22/2024 by Neo Lopez III, [place] [facility] Left: Head SYNTHES MAXILLOFACIAL 421.527 / / Screw Ti Lo Pro Sd 4mm 400.834 - [id number] Implanted:Qty: 8 on 01/22/2024 by Neo Lopez III, MD [place] [facility] Left: Head SYNTHES MAXILLOFACIAL 400.834 / / Cover Bur Hol 15mm 421.526 - [id number] Implanted:Qty: 1 on 01/22/2024 by Neo Lopez III, MD at [place] [facility] Left: Head SYNTHES MAXILLOFACIAL 421.526 / / documented as of this encounter Advance Directives Documents on File Type Date Recorded Patient Multiple Drum Sander Expl anation Power of Hospital Medical Assistant 01/24/2024 signed on 01/21/2024 POWER OF DECKHAND * Full Code (Latest Code Status on [...] Discussed due to patient's condition Care Teams Clinical Program Manager Relationship Specialty Start Date End Date Beverly Gonzales CRNP [address] [place] [address] PCP - General Nurse Practitioner 04/24/23 documented as of this encounter
--- OUTSIDE RECORDS SUMMARY | 2024-05-06 16:13 | External Medical Summary | Summary of Care ---
Author Name Unknown Organization [facility] Address [address] [place] [address] Phone [phone] Care Team Providers Care Chief Concierge Name Role Phone Beverly Gonzales [place] OCHOA Primary Care Provider Reason for Visit * Reason Onset Date Comments Precert Future 02/07/2024 temodar Encounter Details Date Type Department Care Team (Late st Contact Info) Description 02/07/2024 Telephone Hematology/Oncology Treatment, [place] [address] [place] [address] Keon Stanton MD [address] [place] [address] Precert Future (temodar) Allergies No known active allergiesdocumented as of this encounter (statuses as of 02/18/2024) Medications BiPAP every night at bedtime . [...] by mouth twice daily 120 Tablet 2 Active Losartan Potassium-HCTZ 50-12.5 MG Oral Tablet (Hyzaar) take 1 AND 1/2 tablets by mouth every morning 135 Tablet Active Famotidine 20 MG Oral Tablet (Pepcid) Take 1 Tablet by mouth twice per day (morning, before bedtime). 30 Tablet 1 01/18/20 24 12:06 PM EDT Active Additional Information Patient not [...] 02/04/2024 Mounjaro 2.5 MG/0.5ML Subcutaneous Solution Auto-injector (Tirzepatide)Evelin cations:Type 2 diabetes mellitus without complication, without long-term current use of insulin (HCC) INJECT 1 SYRINGE SUBCUTANEOUSLY ONCE A WEEK 2 mL Active Ondansetron 4 MG Oral Tablet Disintegrating (Zofran) Place 1 Tablet on tongue and let it dissolve every 6 hours as needed for Nausea or Vomiting. 20 Tablet 01/23/20 24 3:38 PM EDT 024 2023 Discontinued dexAMETHasone 2 MG Oral Tablet (Decadron) Take 2 Tablets by mouth 3 times a day for 2 days, THEN 2 Tablets 2 times a day with morning and evening meals for 2 days, THEN 1 Tablet 2 times a day with morning and evening meals for 2 days, THEN 1 Tablet daily with breakfast for 2 days. 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 TT sent to [facility] rad/onc. Patient is scheduled to start treatment 02/26. MTM: FYI Scheduling: please follow up with patient to schedule follow up with Dr Stanton or DON in about 3-4 weeks. Thanks! * Telephone Encounter - Coco Aleman RN - 02/14/2024 9:47 AM EST Referral entered, can come from P. * Telephone Encounter - Edson Hollins RN - 02/12/2024 2:55 PM EST Pt education completed today. Hep B labs completed today. Pt scheduled for SIM with Rad Onc on 02/14. * Telephone Encounter - Coco Aleman RN - 02/07/2024 3:45 PM EST Order received for temodar with radiation. Sent order to [facility] for beacon uploading. Waiting for auth. Consent signed 02/07/24. Rad/onc consult 02/12/24. Education visit 02/12/24. Patient will need hep B labs. documented in this encounter Plan of Treatment Upcoming Encounters Date Type Department Care Team (Late st Contact Info) Description 02/19/2024 3:45 PM EST Pharmacy Pharmacy Hematology Oncology [facility], [address] [address] [facility] Hem/[place]c [facility] [place] [address] 03/11/2024 4:00 PM EST Office Visit Hematology/Oncology [facility] 200 [facility] [place] [address] Ana Oliver CRNP [address] [place] [address] 05/06/2024 8:45 AM EST Imaging Radiology [address] 132 [facility] [address] 05/06/2024 8:45 AM EST Imaging Radiology [address] 132 [facility] [place] [address] 05/19/2024 9:45 AM EST Office Visit Neurosurgery, [address] [address] Clinic, Brain Tumor Multidisciplinary [address] [place] [address] Health Maintenance Due Date Last Done Comments [...] Additional history exists Lipid Panel 02/11/2029 02/12/2024, 02/11/2022, 11/14/2014 HPV (Gardasil) Vaccine Aged Out No lo nger eligible based on patient's age to complete this topic MENINGOCOCCAL (MENACTRA/MENVEO) Aged Out No longer eligible based on patient's age to complete this topic documented as of this encounter Medical Devices Implanted Type Area Laundry Machine Operator Device Identifier Shelf Expiration Date Model / Serial / Lot Cover Bur Hol Ti Lo 17 421.527 - [id number] Implanted:Qty: 1 on 01/22/2024 by Neo Lopez III, MD at [place] [facility] Left: Head SYNTHES MAXILLOFACIAL 421.527 / / Screw Ti Lo Pro Sd 4mm 400.834 - [id number] Implanted:Qty: 8 on 01/22/2024 by Neo Lopez III, MD at OR [facility] Left: Head SYNTHES MAXILLOFACIAL 400.834 / / Cover Bur Hol 15mm 421.526 - [id number] Implanted:Qty: 1 on 01/22/2024 by Neo Lopez III, MD at OR [facility] Left: Head SYNTHES MAXILLOFACIAL 421.876 / / documented as of this encounter Results * HEPATITIS B CORE ANTIBODIES IGG AND IGM (02/12/2024 12:59 PM EST) Hepatitis B Core Antibodies IgG and IgM Negative Negative 02/12/2024 6:09 PM EST LABORATORY [facility] Blood Venous blood specimen / Unknown Venipuncture / Unknown 02/12/2024 12:59 PM EST 02/12/2024 1:00 PM EST Keon Stanton MD LAB BLOOD ORDERABLES Final Res ult LABORATORY [place] [address] [place] [address] * HEPATITIS B SURFACE ANTIGEN (02/12/2024 12:59 PM EST) Pathologist [facility] Hepatitis B Surface Antigen Negative Negative 02/12/2024 6:09 PM EST LABORATORY [facility] Blood Venous blood specimen / Unknown Venipuncture / Unknown 02/12/2024 12:59 PM EST 02/12/2024 1:00 PM EST Keon Stanton MD LAB BLOOD ORDERABLES Final Res ult LABORATORY [place] [address] [place] [address] * HEPATITIS B SURFACE ANTIBODY (02/12/2024 12:59 PM EST) Hepatitis B Surface Antibody, Quantitative <3.5 mIU/mL 02/12/2024 6:09 PM EST LABORATORY [facility] Hepatitis B Surface Antibody, Qualitative Negative 02/12/2024 6:09 PM EST LABORATORY [facility] Hepatitis B Surface Antibody, Interpretation NOT immune to Hepatitis B Virus 02/12/2024 6:09 PM EST LABORATORY [facility] Comment: POSITIVE: >=11.5 mIU/mL INDETERMINATE: 8.5-<11.5 mIU/mL NEGATIVE: <8.5 mIU/mL Blood Venous blood specimen / Unknown Venipuncture / Unknown 02/12/2024 12:59 PM EST 02/12/2024 1:00 PM EST us Keon Stanton MD LAB BLOOD ORDERABLES Final Res ult LABORATORY [facility] [address] [facility] [place] [address] documented in this encounter Visit Diagnoses Diagnosis Glioblastoma multiforme (HCC)- Primary Malignant neoplasm of brain, unspecified site documented in this encounter Advance Directives Documents on File Type Date Recorded Patient Powder Carrier Expl anation Power of Treatment Manager 01/24/2024 signed on 01/21/2024 POWER OF BEEF BREAKER * Full Code (Latest Code Status on [...] Discussed due to patient's condition Care Teams Chief Concierge Relationship Specialty Start Date End Date Beverly Gonzales CRNP [address] [place] [address] PCP - General Nurse Practitioner 04/24/23 documented as of this encounter
--- OUTSIDE RECORDS SUMMARY | 2024-05-06 16:13 | External Medical Summary | Summary of Care ---
Author Name Unknown Organization [facility] Address [address] [facility] [place] [address] Phone [phone] Care Team Providers Care Supervisor Carding Name Role Phone Beverly Gonzales Aurora OCHOA Primary Care Provider Encounter Details Date Type Department Care Team (Late st Contact Info) Description 03/05/2024 Result Scan Unspecified Department <No scans attached> [...] SUBCUTANEOUSLY ONCE A WEEK 2 mL 02/04/20 24 Active Ondansetron HCl 8 MG Oral Tablet [...] hypoxemia, suboptimal [facility] documented as of this [...] 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 Not on [...] Date Author No 01/22/2024 4:47 PM EDT Argudo, E vani, RN documented in this encounter Plan of Treatment Upcoming Encounters Date Type Department Care Team (Late st Contact Info) Description 03/05/2024 3:30 PM EST Pharmacy [facility] [address] [place] [address] [facility] Clinic Hem/Onc [address] [place] [address] Glioblastoma multiforme (HCC)* 03/11/2024 4:00 PM EST Office Visit Hematology/Oncology [facility] 200 [place] [address] Ana Oliver CRNP [address] [place] [address] 05/06/2024 8:45 AM EST Imaging Radiology [address] 132 [place] [address] 05/06/2024 8:45 AM EST Imaging Radiology [address] 132 [place] [address] 05/19/2024 9:45 AM EST Office Visit Neurosurgery, [place] [address] [place] [address] Clinic, Brain Tumor Multidisciplinary [address] [place] [address] 05/29/2024 8:00 AM EST Telemedicine Genetics Hem[facility]c, [facility] [address] [place] [address] Brittany Tafoya, MS [address] [place] [address] Health Maintenance Due Date Last Done Comments [...] this encounter Medical Devices Implanted Type Area Rodeo Performer Device Identifier Shelf Expiration Date Model / Serial / Lot Cover Bur Hol Ti Lo 17 421.527 - [id number] Implanted:Qty: 1 on 01/22/2024 by Neo Lopez III, [place] [facility] Left: Head SYNTHES MAXILLOFACIAL 421.527 / / Screw Ti Lo Pro Sd 4mm 400.834 - [id number] Implanted:Qty: 8 on 01/22/2024 by Neo Lopez III, MD [place] [facility] Left: Head SYNTHES MAXILLOFACIAL 400.834 / / Cover Bur Hol 15mm 421.526 - [id number] Implanted:Qty: 1 on 01/22/2024 by Neo Lopez III, MD [place] [facility] Left: Head SYNTHES MAXILLOFACIAL 421.526 / / documented as of this encounter Procedures Procedure Name Priority Date/Time Associated Diagnosis Comments OUTSIDE LAB RESULTS 03/05/2024 documented in this encounter Results * OUTSIDE LAB RESULTS (03/05/2024) 03/05/2024 No Physician Data Unknown LABORATORY Final Result documented in this encounter Advance Directives Documents on File Type Date Recorded Patient Shift Supervisor Film Processing Expl anation Power of Quarry Supervisor 01/24/2024 signed on 01/21/2024 POWER OF LINE TENDER * Full Code (Latest Code Status on [...] Discussed due to patient's condition Care Teams Supervisor Carding Relationship Specialty Start Date End Date Beverly Gonzlaes CRNP [address] [place] [address] PCP - General Nurse Practitioner 04/24/23 documented as of this encounter
--- OUTSIDE RECORDS SUMMARY | 2024-05-06 16:13 | External Medical Summary | Summary of Care ---
Author Name Unknown Organization [facility] Address [address] [facility] [place] [address] Phone [phone] Care Team Providers Care Fitness And Wellness Manager Name Role Phone Beverly Gonzales DON Primary Care Provider Encounter Details Date Type Department Care Team (Late st Contact Info) Description 02/28/2024 Orders Only Hematology/Oncology [facility] [place] [address] [facility] [place] [phone] Keon Stanton MD 200 [facility] [address] Allergies No known active allergiesdocumented as of this encounter (statuses as of 02/28/2024) Medications BiPAP every night at bedtime . [...] day (morning, before bedtime). 30 Tablet 1 10/25/202 4 12:06 PM EDT 01/18/20 Active Additional Information Patient not taking.Reported on [...] 10 Tablet 4 3:38 PM EDT 01/24/20 Active Additional Information Patient not taking.Reported on [...] as of this encounter (statuses as of 02/28/2024) Active Problems Problem Noted Date Diagnosed Date [...] suboptimal titration from CPAP to BIPAP [facility] Hypersomnia 12/18/2014 documented as of this encounter (statuses as of 02/28/2024) Resolved Problems Problem Noted Date Diagnosed Date [...] as of this encounter (statuses as of 02/28/2024) Immunizations Name Administration Dates Next Due TDAP [...] 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 Not on [...] 3:45 PM EST Pharmacy Pharmacy Hematology Oncology [facility] [address] [place] [address] [facility], [facility] Clinic Hem/Onc [address] [place] [address] 03/11/2024 4:00 PM EST Office Visit Hematology/Oncology [facility] 200 [place] [phone] Ana Oliver CRNP [address] [place] [address] 05/06/2024 8:45 AM EST Imaging Radiology [address] 132 [place] [address] 05/06/2024 8:45 AM EST Imaging Radiology [address] 132 [place] [address] 05/19/2024 9:45 AM EST Office Visit Neurosurgery, [place] 100 [place] [address] Clinic, Brain Tumor Multidisciplinary [facility] [address] 05/29/2024 8:00 AM EST Telemedicine Genetics HemOnc, [facility] 100 [place] [address] Brittany Tafoya, MS [address] [place] [address] Health Maintenance Due Date Last Done Comments [...] Td or Tdap) 11/14/2024 11/14/2014 GFR 02/11/2025 02/27/2024, 01/24, 01/22/2024, Additional history exists Lipid Panel 02/11/2029 02/12/2024, 11/2022, 11/14/2014 HPV (Gardasil) Vaccine Aged Out No lo nger eligible based on patient's age to complete this topic MENINGOCOCCAL (MENACTRA/MENVEO) Aged Out No longer eligible based on patient's age to complete this topic documented as of this encounter Medical Devices Implanted Type Area Opener Verifier Packer [employer] Device Identifier Shelf Expiration Date Model / Serial / Lot Cover Bur Hol Ti Lo 17 421.527 - [id number] Implanted:Qty: 1 on 01/22/2024 by Neo Lopez III, MD at OR [facility] Left: Head SYNTHES MAXILLOFACIAL 421.527 / / Screw Ti Lo Pro Sd 4mm 400.834 - [id number] Implanted:Qty: 8 on 01/22/2024 by Neo Lopez III, MD at OR [facility] Left: Head SYNTHES MAXILLOFACIAL 400.834 / / Cover Bur Hol 15mm 421.526 - [id number] Implanted:Qty: 1 on 01/22/2024 by Neo Lopez III, MD at OR [facility] Left: Head SYNTHES MAXILLOFACIAL 421.526 / / documented as of this encounter Procedures Procedure Name Priority Date/Time Associated Diagnosis Comments CHEMISTRY-OUTSIDE Routine 02/27/2024 documented in this encounter Results * (ABNORMAL) CHEMISTRY-OUTSIDE (02/27/2024) Not all results display below - see scan for full detail OUTSIDE LAB (SEE SCANNED REPORT) Comment:SCAN INCLUDES - CMP, CBCD CREATININE 0.86 0.6 - 1.4 MG/DL OUTSIDE LAB (SEE SCANNED REPORT) EGFR 104.83 OUTSIDE LA B (SEE SCANNED REPORT) POTASSIUM 3.9 3.5 - 5.1 MMOL/L OUTSIDE LAB (SEE SCANNED REPORT) GLUCOSE 128(A) 70 - 99 MG/DL OUTSIDE LAB (SEE [...] LAB OUTSIDE LAB (SEE SCANNED REPORT) HEMOGLOBIN, [id number] LAB OUTSIDE LAB (SEE SCANNED REPORT) PHOSPHORUS-OUTSID E LAB OUTSIDE LAB (SEE SCANNED REPORT) PTH-OUTSIDE LAB OUTS [place] LAB (SEE SCANNED REPORT) MICROALBUMIN RATIO-OUTSIDE LAB OUTSIDE LA B (SEE SCANNED REPORT) PROTEIN, UA-OUTSIDE LAB OUTSIDE LAB (SEE SCANNED REPORT) HGB 16.3 14.0 - 18.0 G/DL OUTSIDE LAB (SEE SCANNED REPORT) 02/27/2024 us Keon Stanton MD LABORATORY Final Result OUTSIDE LAB (SEE SCANNED REPORT) documented in this encounter Advance Directives Documents on File Type Date Recorded Patient Pattern Weaver Expl anation Power of Seo Assistant 01/24/2024 signed on 01/21/2024 POWER OF ELECTRONICS TESTER * Full Code (Latest Code Status [...] Discussed due to patient's condition Care Teams Fitness And Wellness Manager Relationship Specialty Start Date End Date Beverly Gonzales CRNP [address] [place] [address] PCP - General Nurse Practitioner 04/24/23 documented as of this encounter
--- OUTSIDE RECORDS SUMMARY | 2024-05-06 16:13 | External Medical Summary | Summary of Care ---
Author Name Unknown Organization [facility] Address [address] [facility] [place] [address] Phone [phone] Care Team Providers Care Telecommunications Officer Name Role Phone Beverly Cabezas Primary Care Provider Reason for Visit * Reason Comments eRx-Medication Refill Encounter Details Date Type Department Care Team (Late st Contact Info) Description 02/29/2024 Refill Family Practice [facility] [address] [place] [address] Beverly Cabezas CRNP [address] [place] [address] Allergies No known active allergiesdocumented as of this encounter (statuses as of 03/01/2024) Medications BiPAP every night at bedtime . [...] day (morning, before bedtime). 10 Capsule 01/23/20 3:38 PM EDT Active Additional Information [...] 02/04/2024 Mounjaro 2.5 MG/0.5ML Subcutaneous Solution Auto-injector (Tirzepatide)In dications:Type 2 diabetes mellitus without complication, without long-term current use of insulin (HCC) INJECT 1 SYRINGE SUBCUTANEOUSLY ONCE A WEEK 2 mL Active Ondansetron HCl 8 MG Oral Tablet [...] mouth twice daily 120 Tablet 5 Active metFORMIN HCl ER 500 MG Oral Tablet Extended Release 24 Hour (Glucophage XR) Take 2 tablets by mouth twice daily 120 Tablet 2 024 2023 Discontinued documented as of this encounter (statuses as of 03/01/2024) Active Problems Problem Noted Date Diagnosed Date [...] hypoxemia, suboptimal titration from CPAP to BIPAP 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 Not [...] encounter Miscellaneous Notes * Telephone Encounter - Leydi Chan [facility] - 03/01/2024 1:55 PM ESTSigned Prescriptions: Disp Refills metFORMIN HCl ER 500 MG Oral Tablet Extend*120 Ta*5 Sig: Take 2 tablets by mouth twice dailyAuthorizing Provider: BEVERLY CABEZAS User: LEYDI CHAN documented in this encounter Plan of Treatment Upcoming Encounters Date Type Department Care Team (Late st Contact Info) Description 03/05/2024 3:30 PM EST Pharmacy Pharmacy Hematology Oncology [facility] [address] [place] [address] [facility] [place] Hem/Onc [address] [place] [address] 03/11/2024 4:00 PM EST Office Visit Hematology/Oncology Ayleen [facility] [place] [address] [place] [address] Ana Oliver CRNP [address] [place] [address] 05/06/2024 8:45 AM EST Imaging Radiology [address] 132 [facility] [place] [address] 05/06/2024 8:45 AM EST Imaging Radiology [address] [facility] [place] [address] 05/19/2024 9:45 AM EST Office Visit Neurosurgery, [place] [address] [place] [address] Clinic, Brain Tumor Multidisciplinary [address] [place] [address] 05/29/2024 8:00 AM EST Telemedicine Genetics [place]c, [facility] [address] [place] [address] Brittany Tafoya, [place] 132 [facility] [place] [address] Health Maintenance Due Date Last Done Comments [...] this encounter Medical Devices Implanted Type Area Day Guard Device Identifier Shelf Expiration Date Model / Serial / Lot Cover Bur Hol Ti Lo 17 421.527 - [id number] Implanted:Qty: 1 on 01/22/2024 by Neo Lopez III[place] [facility]: Head SYNTHES MAXILLOFACIAL 421.527 / / Screw Ti Lo Pro Sd 4mm 400.834 - [id number] Implanted:Qty: 8 on 01/22/2024 by Neo Lopez III, [place] [facility] [place]: Head SYNTHES MAXILLOFACIAL 400.834 / / Cover Bur Hol 15mm 421.526 - [id number] Implanted:Qty: 1 on 01/22/2024 by Neo Lopez III, MD [place] [facility] Left: Head SYNTHES MAXILLOFACIAL 421.526 / / documented as of this encounter Advance Directives Documents on File Type Date Recorded Patient Manager Civil Expl anation Power of Nougat Cutter Machine 01/24/2024 signed on 01/21/2024 POWER OF WOOL HAT FINISHER * Full Code (Latest Code Status on [...] Discussed due to patient's condition Care Teams Telecommunications Officer Relationship Specialty Start Date End Date Beverly Cabezas CRNP [address] [place] [address] PCP - General Nurse Practitioner 04/24/23 documented as of this encounter
--- OUTSIDE RECORDS SUMMARY | 2024-05-06 16:14 | External Medical Summary | Summary of Care ---
Author Name Unknown Organization [facility] Address [address] [place] [address] Phone [phone] Care Team Providers Care Mix House Tender Name Role Phone Beverly Gonzales Aurora OCHOA Primary Care Provider Reason for Visit * Reason Onset Date Comments Precert Future 02/07/2024 temodar Encounter Details Date Type Department Care Team (Late st Contact Info) Description 02/07/2024 Telephone Hematology/Oncology Treatment, [place] [address] [place] [address] Keon Stanton MD [address] [place] [address] Precert Future (temodar) Allergies No known active allergiesdocumented as of this encounter (statuses as of 02/14/2024) Medications BiPAP every night at bedtime . [...] as of this encounter (statuses as of 02/14/2024) Active Problems Problem Noted Date Diagnosed Date [...] hypoxemia, suboptimal titration from CPAP to BIPAP [facility] Hypersomnia 12/18/2014 documented as of this encounter (statuses as of 02/14/2024) Resolved Problems Problem Noted Date Diagnosed Date [...] as of this encounter (statuses as of 02/14/2024) Immunizations Name Administration Dates Next Due TDAP [...] 01/22/2024 4:47 PM TYLORT Kirk Myers RN documented as of this [...] AM EST Referral entered, can come from [facility]. * Telephone Encounter - Edson Hollins RN - 02/12/2024 2:55 PM EST Pt education completed today. Hep B labs completed today. Pt scheduled for SIM with Rad Onc on 02/14. * Telephone Encounter - Coco Aleman RN - 02/07/2024 3:45 PM EST Order received for temodar with radiation. Sent order to [facility] for beacon uploading. Waiting for auth. Consent signed 02/07/24. Rad/onc consult 02/12/24. Education visit 02/12/24. Patient will need hep B labs. documented in this encounter Plan of Treatment Upcoming Encounters Date Type Department Care Team (Late st Contact Info) Description 02/19/2024 3:45 PM EST Pharmacy Pharmacy Hematology Oncology [address] [address] [facility] [place] Hem[facility]Onc [facility] [place] [address] 05/06/2024 8:45 AM EST Imaging Radiology [facility], [place] [address] [facility] [place] [address] 05/19/2024 9:45 AM EST Office Visit Neurosurgery, [place] [address] [place] [address] Clinic, Brain Tumor Multidisciplinary [address] [place] [address] Health Maintenance Due Date Last Done Comments [...] this encounter Medical Devices Implanted Type Area Acupuncture Physician Device Identifier Shelf Expiration Date Model / Serial / Lot Cover Bur Hol Ti Lo 17 421.527 - [id number] Implanted:Qty: 1 on 01/22/2024 by Neo Lopez III[place] [facility] [place] Head SYNTHES MAXILLOFACIAL 421.527 / / Screw Ti Lo Pro Sd 4mm 400.834 - [id number] Implanted:Qty: 8 on 01/22/2024 by Neo Lopez III, [place] [facility] [place]: Head SYNTHES MAXILLOFACIAL 400.834 / / Cover Bur Hol 15mm 421.526 - [id number] Implanted:Qty: 1 on 01/22/2024 by Neo Lopez III, [place] [facility] [place]: Head SYNTHES MAXILLOFACIAL 421.526 / / documented as of this encounter Results * HEPATITIS B CORE ANTIBODIES IGG AND IGM (02/12/2024 12:59 PM EST) Hepatitis B Core Antibodies IgG and IgM Negative Negative 02/12/2024 6:09 PM EST [facility] [place] Venous blood specimen / Unknown Venipuncture / Unknown 02/12/2024 12:59 PM EST 02/12/2024 1:00 PM EST Keon Stanton MD LAB BLOOD ORDERABLES Final Res ult Performing Organization Address City/[facility]/ZIP Co de Phone Number LABORATORY [place] [address] [place] [address] * HEPATITIS B SURFACE ANTIGEN (02/12/2024 12:59 PM EST) Hepatitis B Surface Antigen Negative Negative 02/12/2024 6:09 PM EST [facility] [place] Venous blood specimen / Unknown Venipuncture / Unknown 02/12/2024 12:59 PM EST 02/12/2024 1:00 PM EST us Keon Stanton MD LAB BLOOD ORDERABLES Final Res ult [facility] [address] [place] [address] * HEPATITIS B SURFACE ANTIBODY (02/12/2024 12:59 PM EST) Hepatitis B Surface Antibody, Quantitative <3.5 mIU/mL 02/12/2024 6:09 PM EST [facility] Hepatitis B Surface Antibody, Qualitative Negative 02/12/2024 6:09 PM EST [facility] Hepatitis B Surface Antibody, Interpretation NOT immune to Hepatitis B Virus 02/12/2024 6:09 PM EST [facility] Comment: POSITIVE: >=11.5 mIU/mL INDETERMINATE: 8.5-<11.5 mIU/mL NEGATIVE: <8.5 mIU/mL Blood Venous blood specimen / Unknown Venipuncture / Unknown 02/12/2024 12:59 PM EST 02/12/2024 1:00 PM EST us Keon Stanton MD LAB BLOOD ORDERABLES Final Res ult [facility] [address] [place] [address] documented in this encounter Visit Diagnoses Diagnosis Glioblastoma multiforme (HCC)- Primary Malignant neoplasm of brain, unspecified site documented in this encounter Advance Directives Documents on File Type Date Recorded Patient Business Process Coordinator Expl anation Power of Iv Rn 01/24/2024 signed on 01/21/2024 POWER OF LEADERSHIP PROGRAM INTERNSHIP * Full Code (Latest Code Status on [...] Discussed due to patient's condition Care Teams Mix House Tender Relationship Specialty Start Date End Date Beverly Gonzales CRNP [address] [place] [address] PCP - General Nurse Practitioner 04/24/23 documented as of this encounter
--- OUTSIDE RECORDS SUMMARY | 2024-05-06 16:14 | External Medical Summary | Summary of Care ---
Author Name Unknown Organization [facility] Address [address] [place] [address] Phone [phone] Care Team Providers Care Eeo Officer Name Role Phone Beverly Gonzales Auroar OCHOA Primary Care Provider Reason for Referral * Evaluate & Treat - Unlimited Visits (Within 10 days (routine)) - Authorized Specialty Diagnoses / Procedures Referred By Contcooper t Referred To Contact Medical Genetics / Hematology Oncology Diagnoses Glioblastoma multiforme (HCC) Keon Stanton MD [address] [place] [address] Phone: tel: fax: Referral ID Status Reason Start Date Expiration Date Visits Requested Visits Authorized [id number] Authorized Specialty Services Required 4 [phone] Question Answer Referral Priority Within 10 days (routine) Where should this appointment be scheduled? [facility] Is this referral request related to one of the following genetics sub-specialties? If unsure of category, use Medical Genetics Ask-A-Doc. Cancer Personal history of cancer? Yes Type of cancer and age at diagnosis: Glioblastoma multiforme at the age of 53. 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 Encounter Details Date Type Department Care Team (Late st Contact Info) Description 02/17/2024 Orders Only Hematology/Oncology [place] [facility] [address] [place] [address] [place] [phone] Keon Stanton MD [address] [place] [address] [place] [id number] Glioblastoma multiforme (HCC)* Allergies No known active allergiesdocumented as of this encounter (statuses as of 02/17/2024) Medications BiPAP every night at bedtime . [...] Tablet 1 4 12:06 PM EDT 01/18/20 Active Additional [...] Take medication on empty stomach.. 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 - MGMT gene promoter methylation --> not detected. Genetic Clinic evaluation is indicated. Please check with him whether he would like to proceed with that on not. ( I put a genetic Clinic evaluation consultation). documented in this encounter Plan of Treatment Upcoming Encounters Date Type Department Care Team (Late st Contact Info) Description 02/19/2024 3:45 PM EST Pharmacy Pharmacy Hematology Oncology [address] [address] [facility] [place] Hem/Onc [address] [place] [address] 05/06/2024 8:45 AM EST Imaging Radiology [address] [place] [address] 05/06/2024 8:45 AM EST Imaging Radiology [address] 132 [facility] [place] [address] 05/19/2024 9:45 AM EST Office Visit Neurosurgery, [place] [address] [place] [address] Clinic, Brain Tumor Multidisciplinary [address] [place] [address] Scheduled Referrals Name Type Priority Associated Diagnoses Orde r Schedule GENETICS REFERRAL OP Referral Within 10 days (routine) Glioblastoma multiforme (HCC) Ordered: 02/17/2024 Health Maintenance Due Date Last Done Comments [...] this encounter Medical Devices Implanted Type Area Under Sheriff Device Identifier Shelf Expiration Date Model / Serial / Lot Cover Bur Hol Ti Lo 17 421.527 - [id number] Implanted:Qty: 1 on 01/22/2024 by Neo Lopez III, [place] [facility] [place]: Head SYNTHES MAXILLOFACIAL 421.527 / / Screw Ti Lo Pro Sd 4mm 400.834 - [id number] Implanted:Qty: 8 on 01/22/2024 by Neo Lopez III, MD [place] [facility] [place]: Head SYNTHES MAXILLOFACIAL 400.834 / / Cover Bur Hol 15mm 421.526 - [id number] Implanted:Qty: 1 on 01/22/2024 by Neo Lopez III, MD [place] [facility] [place] Left: Head SYNTHES MAXILLOFACIAL 421.526 / / documented as of this encounter Visit Diagnoses Diagnosis Glioblastoma multiforme (HCC)- Primary Malignant neoplasm of brain, unspecified site documented in this encounter Advance Directives Documents on File Type Date Recorded Patient Steam Frame Operator Expl anation Power of Assistant Men'S Lacrosse Coach 01/24/2024 signed on 01/21/2024 POWER OF CLINICAL BUSINESS ANALYST * Full Code (Latest Code Status on File) Date Activated Date Inactivated Comments 01/22/2024 3:03 PM 01/23/2024 7:55 PM This orde r reflects the patients [...] Discussed due to patient's condition Care Teams Eeo Officer Relationship Specialty Start Date End Date Beverly Gonzales CRNP [address] [place] [address] PCP - General Nurse Practitioner 04/24/23 documented as of this encounter
--- OUTSIDE RECORDS SUMMARY | 2024-05-06 16:14 | External Medical Summary | Summary of Care ---
Author Name Unknown Organization [facility] Address [address] [place] [address] Phone [phone] Care Team Providers Care Mesmerist Name Role Phone Beverly Gonzales Aurora OCHOA Primary Care Provider Reason for Visit * Reason Onset Date Comments Precert Future 02/07/2024 temodar Encounter Details Date Type Department Care Team (Late st Contact Info) Description 02/07/2024 Telephone Hematology/Oncology Treatment, [place] [address] [place] [address] Keon Stanton MD [address] [place] [address] Precert Future (temodar) Allergies No known active [...] hypoxemia, suboptimal titration from CPAP to BIPAP [facility] Hypersomnia 12/18/2014 documented as [...] 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 TT sent to [facility] rad/onc. Patient is scheduled to start treatment 02/26. MTM: [facility] Scheduling: please follow up with patient to schedule follow up with Dr Stanton or DON in about 3-4 weeks. Thanks! * Telephone Encounter - Coco Aleman RN - 02/14/2024 9:47 AM EST Referral entered, can come from [facility]. * Telephone Encounter - Edson Hollins RN - 02/12/2024 2:55 PM EST Pt education completed today. Hep B labs completed today. Pt scheduled for SIM with Rad Onc on 02/14. * Telephone Encounter - Coco Aleman RN - 02/07/2024 3:45 PM EST Order received for temodar with radiation. Sent order to [facility] for beacon uploading. Waiting for auth. Consent signed 02/07/24. Rad/onc consult 02/12/24. Education visit 02/12/24. Patient will need hep B labs. documented in this encounter Plan of Treatment Upcoming Encounters Date Type Department Care Team (Late st Contact Info) Description 02/19/2024 3:45 PM EST Pharmacy Pharmacy Hematology Oncology [facility] [address] [place] [address] [facility] [place] Hem/Onc [address] [place] [address] 05/06/2024 8:45 AM EST Imaging Radiology [address] [address] 05/06/2024 8:45 AM EST Imaging Radiology [address], [address] [address] 05/19/2024 9:45 AM EST Office Visit Neurosurgery, [place] [address] [place] [address] Clinic, Brain Tumor Multidisciplinary [address] [place] [address] Health Maintenance Due Date Last Done Comments [...] this encounter Medical Devices Implanted Type Area Advertising Layout Worker Device Identifier Shelf Expiration Date Model / Serial / Lot Cover Bur Hol Ti Lo 17 421.527 - [id number] Implanted:Qty: 1 on 01/22/2024 by Neo Lopez III, MD at [place] [facility] [place] Left: Head SYNTHES MAXILLOFACIAL 421.527 / / Screw Ti Lo Pro Sd 4mm 400.834 - [id number] Implanted:Qty: 8 on 01/22/2024 by Neo Lopez III, MD at [place] [facility] Left: Head SYNTHES MAXILLOFACIAL 400.834 / / Cover Bur Hol 15mm 421.526 - [id number] Implanted:Qty: 1 on 01/22/2024 by Neo Lopez III, MD at [place] [facility] Left: Head SYNTHES MAXILLOFACIAL 421.526 / / documented as of this encounter Results * HEPATITIS B CORE ANTIBODIES IGG AND IGM (02/12/2024 12:59 PM EST) Hepatitis B Core Antibodies IgG and IgM Negative Negative 02/12/2024 6:09 PM EST LABORATORY [facility] Blood Venous blood specimen / Unknown Venipuncture / Unknown 02/12/2024 12:59 PM EST 02/12/2024 1:00 PM EST Keon Stanton MD LAB BLOOD ORDERABLES Final Res ult LABORATORY [facility] [address] [place] [address] * HEPATITIS B SURFACE ANTIGEN (02/12/2024 12:59 PM EST) Hepatitis B Surface Antigen Negative Negative 02/12/2024 6:09 PM EST LABORATORY [facility] Blood Venous blood specimen / Unknown Venipuncture / Unknown 02/12/2024 12:59 PM EST 02/12/2024 1:00 PM EST Keon Stanton MD LAB BLOOD ORDERABLES Final Res ult Performing Organization Address [facility] Co de Phone Number LABORATORY [facility] [address] [place] [address] * HEPATITIS B SURFACE ANTIBODY (02/12/2024 12:59 PM EST) Pathologist [facility] Hepatitis B Surface Antibody, Quantitative <3.5 mIU/mL 02/12/2024 6:09 PM EST LABORATORY [facility] Hepatitis B Surface Antibody, Qualitative Negative 02/12/2024 6:09 PM EST LABORATORY [facility] Hepatitis B Surface Antibody, Interpretation NOT immune to Hepatitis B Virus 02/12/2024 6:09 PM EST LABORATORY [facility] Comment: POSITIVE: >=11.5 mIU/mL INDETERMINATE: 8.5-<11.5 mIU/mL NEGATIVE: <8.5 mIU/mL Blood Venous blood specimen / Unknown Venipuncture / Unknown 02/12/2024 12:59 PM EST 02/12/2024 1:00 PM EST Keon Stanton MD LAB BLOOD ORDERABLES Final Res ult Performing Organization Address City/[facility]/ZIP Co de Phone Number LABORATORY [facility] [address] [place] [address] documented in this encounter Visit Diagnoses Diagnosis Glioblastoma multiforme (HCC)- Primary Malignant neoplasm of brain, unspecified site documented in this encounter Advance Directives Documents on File Type Date Recorded Patient Theatrical Scenic Designer Expl anation Power of Advertising Supervisor 01/24/2024 signed on 01/21/2024 POWER OF RN ONCOLOGY * Full Code (Latest Code Status on [...] Discussed due to patient's condition Care Teams Mesmerist Relationship Specialty Start Date End Date Beverly Gonzales CRNP [address] [place] [address] PCP - General Nurse Practitioner 04/24/23 documented as of this encounter
--- OUTSIDE RECORDS SUMMARY | 2024-05-06 16:14 | External Medical Summary | Summary of Care ---
Author Name Unknown Organization [facility] Address [address] [place] [address] Phone [phone] Care Team Providers Care Waste Machine Offbearer Name Role Phone Beverly Gonzaleslle DON Primary Care Provider Encounter Details Date Type Department Care Team (Late st Contact Info) Description 02/14/2024 Documentation Genetics HemOnc, [facility] [address] [place] [address] Karime Servin, MS [address] [place] [address] Genetic screening* Allergies No known active allergiesdocumented as of [...] Take medication on empty stomach.. 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 The SHERRIE, [id number] variant has been reported in the germline previously. I recommend testing via blood or saliva sample to confirm etiology. F/U planned with treating oncologist to order multi-cancer panel germline testing or refer to cancer genetics program for discussion. Per Chart Review HPI: Mariano is a 53 year old male with a diagnosis of glioblastoma. - The malignancy is MSI-Stable and Low TMB. - Prior Germline Testing: no - There is no reported family history of cancer. Family History Problem Relation Name Age of Onset No Past Hx None MyGenVar Tumor Sequencing Panel was completed in 01/2024. Note: Review for germline workup is only performed on findings with an associated hereditary cancersyndrome. In general, copy number variation >2 is not of germline concern. Gene Variant Name VAF% Variant Classification PIK3CA [id number] 39.20% Tier 2: Potential significance TERT TERT [id number]: c.-124C>T p? 45.90% Tier 2: Potential significance SHERRIE G7982Hrm*4 51.20% Tier 2: Potential significance BRAF BRAF CN 6.39 Tier 2: Potential significance CDK6 CDK6 CN 5.25 Tier 2: Potential significance EGFR EGFR CN 5.61 Tier 2: Potential significance ERBB2 ERBB2 CN 5.23 Tier 2: Potential significance KRAS KRAS CN 4.93 Tier 2: Potential significance MET MET CN 5.7 Tier 2: Potential significance KMT2D L0947Q 44.50% Tier 3: Unknown clinical significance RB1 H372R 53.50% Tier 3: Unknown clinical significance APC APC CN 5.02 Tier 3: Unknown clinical significance ATR ATR CN 4.48 Tier 3: Unknown clinical significance CDK12 CDK12 CN 5 Tier 3: Unknown clinical significance CIC CIC CN 4.5 Tier 3: Unknown clinical significance FANCC FANCC CN 5.02 Tier 3: Unknown clinical significance FANCD2 FANCD2 CN 4.86 Tier 3: Unknown clinical significance KMT2D KMT2D CN 4.64 Tier 3: Unknown clinical significance MSH3 MSH3 CN 4.68 Tier 3: Unknown clinical significance NBN NBN CN 5 Tier 3: Unknown clinical significance NF1 NF1 CN 4.98 Tier 3: Unknown clinical significance PIK3R1 PIK3R1 CN 4.8 Tier 3: Unknown clinical significance PPM1D PPM1D CN 4.66 Tier 3: Unknown clinical significance RAD51C RAD51C CN 5 Tier 3: Unknown clinical significance RAD51D RAD51D CN 5 Tier 3: Unknown clinical significance SETD2 SETD2 CN 4.75 Tier 3: Unknown clinical significance SMO SMO CN 5.45 Tier 3: Unknown clinical significance TP53 TP53 CN 5.02 Tier 3: Unknown clinical significance PTCH1 PTCH1 CN 4.66 Tier 3: Unknown clinical significance BRIP1 BRIP1 CN 5 Tier 3: Unknown clinical significance SHERRIE, [id number] - Variant Allele Frequency: Near 50% VAF; suggestive of germline origin. Database submissions: - Variant reported in germline per ClinVar. ClinVar ID: [id number]. There are 21 submissions from commercial and/or academic laboratories. The variant is classified as pathogenic or likely pathogenic. - Glioblastoma is not a core SHERRIE-related hereditary cancer syndrome malignancy; germline risk amongindividuals with glioblastoma is not well characterized. - Variants in SHERRIE - Frequently reported as tumor-specific finding in colorectal (12%), endometrial (15%), pancreas (5%) neoplasms. Rare in glioblastoma. - impression: warrants germline rule out. Unless highlighted in red, the above findings were reviewed and not of germline concern. Karime Servin MS, [facility] - Licensed, Certified Genetic Counselor 02/14/2024, 2:51 PM documented in this encounter Plan of Treatment Upcoming Encounters Date Type Department Care Team (Late st Contact Info) Description 02/19/2024 3:45 PM EST Pharmacy Pharmacy Hematology Oncology [place] [address] [place] [address] [facility], [facility] Hem/Onc [address] [place] [address] 05/06/2024 8:45 AM EST Imaging Radiology [address] 132 [facility] [place] [address] 05/06/2024 8:45 AM EST Imaging Radiology [address], [place] 132 [facility] [place] [address] 05/19/2024 9:45 AM EST Office Visit Neurosurgery, [place] [address] [place] [address] Clinic, Brain Tumor Multidisciplinary [address] [place] [address] Health Maintenance Due Date Last Done Comments [...] this encounter Medical Devices Implanted Type Area Poultry Scientist Device Identifier Shelf Expiration Date Model / Serial / Lot Cover Bur Hol Ti Lo 17 421.527 - [id number] Implanted:Qty: 1 on 01/22/2024 by Neo Lopez III, MD at OR [facility] Left: Head SYNTHES MAXILLOFACIAL 421.527 / / Screw Ti Lo Pro Sd 4mm 400.834 - [id number] Implanted:Qty: 8 on 01/22/2024 by Neo Lopez III, MD at OR [facility] [place] Left: Head SYNTHES MAXILLOFACIAL 400.834 / / Cover Bur Hol 15mm 421.526 - [id number] Implanted:Qty: 1 on 01/22/2024 by Neo Lopez III, MD at OR [facility] [place] Left: Head SYNTHES MAXILLOFACIAL 421.526 / / documented as of this encounter Visit Diagnoses Diagnosis Genetic screening- Primary Other genetic screening documented in this encounter Advance Directives Documents on File Type Date Recorded Patient Golf Club Facer Expl anation Power of Hand Bindery Assembly Worker 01/24/2024 signed on 01/21/2024 POWER OF BOILER ATTENDANT * Full Code (Latest Code Status on [...] Discussed due to patient's condition Care Teams Waste Machine Offbearer Relationship Specialty Start Date End Date Beverly Gonzales CRNP [address] [place] [address] PCP - General Nurse Practitioner 04/24/23 documented as of this encounter
--- OUTSIDE RECORDS SUMMARY | 2024-05-06 16:14 | External Medical Summary | Summary of Care ---
Author Name Unknown Organization [facility] Address [address] [place] [address] Phone [phone] Care Team Providers Care Supply Clerk Name Role Phone Beverly Gonzales Aurora OCHOA Primary Care Provider Reason for Visit * Reason Onset Date Comments Precert Future 02/07/2024 temodar Encounter Details Date Type Department Care Team (Late st Contact Info) Description 02/07/2024 Telephone Hematology/Oncology Treatment, [place] [address] [place] [address] Keon Stanton MD [address] [place] [address] Precert Future (temodar) Allergies No known active [...] hypoxemia, suboptimal titration from CPAP to BIPAP [facility] Hypersomnia 12/18/2014 documented as of [...] 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 TT sent to [facility] rad/onc. Patient is scheduled to start treatment 02/26. MTM: [email or web address] * Telephone Encounter - Coco Aleman RN - 02/14/2024 9:47 AM EST Referral entered, can come from [facility]. * Telephone Encounter - Edson Hollins RN - 02/12/2024 2:55 PM EST Pt education completed today. Hep B labs completed today. Pt scheduled for SIM with Rad Onc on 02/14. * Telephone Encounter - Coco Aleman RN - 02/07/2024 3:45 PM EST Order received for temodar with radiation. Sent order to [facility] for beacon uploading. Waiting for auth. Consent signed 02/07/24. Rad/onc consult 02/12/24. Education visit 02/12/24. Patient will need hep B labs. documented in this encounter Plan of Treatment Upcoming Encounters Date Type Department Care Team (Late st Contact Info) Description 02/19/2024 3:45 PM EST Pharmacy Pharmacy Hematology Oncology [facility] [address] [place] [address] [facility] Hem[facility]Onc [address] [place] [address] 05/06/2024 8:45 AM EST Imaging Radiology [address] [place] [address] 05/06/2024 8:45 AM EST Imaging Radiology [address] [place] [address] 05/19/2024 9:45 AM EST Office Visit Neurosurgery, [place] [address] [place] [address] Clinic, Brain Tumor Multidisciplinary [address] [place] [address] Health Maintenance Due Date Last Done Comments [...] Additional history exists Lipid Panel 02/11/2029 02/12/2024, 0 11/2022, 11/14/2014 HPV (Gardasil) Vaccine Aged Out No lo nger eligible based on patient's age to complete this topic MENINGOCOCCAL (MENACTRA/MENVEO) Aged Out No longer eligible based on patient's age to complete this topic documented as of this encounter Medical Devices Implanted Type Area Telemetry Technician Device Identifier Shelf Expiration Date Model / Serial / Lot Cover Bur Hol Ti Lo 17 421.527 - [id number] Implanted:Qty: 1 on 01/22/2024 by Neo Lopez III, MD at [place] [facility] Left: Head SYNTHES MAXILLOFACIAL 421.527 / / Screw Ti Lo Pro Sd 4mm 400.834 - [id number] Implanted:Qty: 8 on 01/22/2024 by Neo Lopez III, MD at [place] [facility] Left: Head SYNTHES MAXILLOFACIAL 400.834 / / Cover Bur Hol 15mm 421.526 - [id number] Implanted:Qty: 1 on 01/22/2024 by Neo Lopez III, MD at OR [facility] Left: Head SYNTHES MAXILLOFACIAL 421.526 / / documented as of this encounter Results * HEPATITIS B CORE ANTIBODIES IGG AND IGM (02/12/2024 12:59 PM EST) Hepatitis B Core Antibodies IgG and IgM Negative Negative 02/12/2024 6:09 PM EST LABOR[facility]ORY [facility] Blood Venous blood specimen / Unknown Venipuncture / Unknown 02/12/2024 12:59 PM EST 02/12/2024 1:00 PM EST us Keon Stanton MD LAB BLOOD ORDERABLES Final Res ult [facility]ORY [facility] [address] [place] [id number] * HEPATITIS B SURFACE ANTIGEN (02/12/2024 12:59 PM EST) Hepatitis B Surface Antigen Negative Negative 02/12/2024 6:09 PM EST [facility]ORY [facility] Blood Venous blood specimen / Unknown Venipuncture / Unknown 02/12/2024 12:59 PM EST 02/12/2024 1:00 PM EST Keon Stanton MD LAB BLOOD ORDERABLES Final Res ult LAB[facility]ATORY [facility] [address] [place] [address] * HEPATITIS B SURFACE ANTIBODY (02/12/2024 12:59 PM EST) Hepatitis B Surface Antibody, Quantitative <3.5 mIU/mL 02/12/2024 6:09 PM EST LAB[facility]ATORY [facility] Hepatitis B Surface Antibody, Qualitative Negative 02/12/2024 6:09 PM EST [facility]ORY [facility] Hepatitis B Surface Antibody, Interpretation NOT immune to Hepatitis B Virus 02/12/2024 6:09 PM EST [facility]ORY [facility] Comment: POSITIVE: >=11.5 mIU/mL INDETERMINATE: 8.5-<11.5 mIU/mL NEGATIVE: <8.5 mIU/mL Blood Venous blood specimen / Unknown Venipuncture / Unknown 02/12/2024 12:59 PM EST 02/12/2024 1:00 PM EST Keon Stanton MD LAB BLOOD ORDERABLES Final Res ult [facility]ATORY [facility] [address] [place] [address] documented in this encounter Visit Diagnoses Diagnosis Glioblastoma multiforme (HCC)- Primary Malignant neoplasm of brain, unspecified site documented in this encounter Advance Directives Documents on File Type Date Recorded Patient Jingle Writer Expl anation Power of Lead Sharepoint Developer 01/24/2024 signed on 01/21/2024 POWER OF DOUBLE NEEDLE STITCHER * Full Code (Latest Code Status on [...] Discussed due to patient's condition Care Teams Supply Clerk Relationship Specialty Start Date End Date Beverly Gonzales CRNP [address] [place] [address] PCP - General Nurse Practitioner 04/24/23 documented as of this encounter
--- OUTSIDE RECORDS SUMMARY | 2024-05-06 16:14 | External Medical Summary | Summary of Care ---
Author Name Unknown Organization [facility] Address [address] [place] [address] Phone [phone] Care Team Providers Care Sas Programmer Remote Name Role Phone Beverly Gonzales Aurora OCHOA Primary Care Provider Reason for Visit * Reason Onset Date Comments Forms Request 02/04/2024 Brain Tumor MDC / [facility] STD Form Encounter Details Date Type Department Care Team (Late st Contact Info) Description 02/04/2024 Telephone [facility] [address] [place], [place] [id number] [facility] [address] [place] [address] Forms Request (Brain Tumor MDC / [facility] STD ... Allergies No known active allergiesdocumented as of this encounter (statuses as of 02/13/2024) Medications BiPAP every night at bedtime . [...] Information Patient not taking.Reported on 02/04/2024 Ondansetron 4 MG Oral Tablet Disintegrating (Zofran) Place 1 Tablet on tongue and let it dissolve every 6 hours as needed for Nausea or Vomiting. 20 Tablet 4 3:38 PM EDT 01/23/20 24 Active Docusate Sodium 100 MG Oral Capsule (Colace) [...] 02/04/2024 Mounjaro 2.5 MG/0.5ML Subcutaneous Solution Auto-injector (Tirzepatide)Indic ations:Type 2 diabetes mellitus without complication, without long-term current use of insulin (HCC) INJECT 1 SYRINGE SUBCUTANEOUSLY ONCE A WEEK 2 mL 02/04/20 Active documented as of this encounter (statuses as of 02/13/2024) Active Problems Problem Noted Date Diagnosed Date [...] hypoxemia, suboptimal titration from CPAP to BIPAP [facility] Hypersomnia 12/18/2014 documented as of this encounter (statuses as of 02/13/2024) Resolved Problems Problem Noted Date Diagnosed Date [...] as of this encounter (statuses as of 02/13/2024) Immunizations Name Administration Dates Next Due TDAP [...] 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 This has been scanned and placed in file for 31 days and faxed successfully to [phone]. ELY Asencio * Telephone Encounter - Gertrude Metcalf LPN - 02/11/2024 3:05 PM EST Forms completed, reviewed and signed by Dr. Lopez. Forms given to Blanca for further processing. * Telephone Encounter - Blanca Starr OSA - 02/04/2024 1:46 PM EST Received initial FMLA form, from Gertrude. This has been scanned and placed in Gertrude's POLISHING PAD MOUNTER Navigatorfolder, for completion. When form is completed please return to patient navigator. ELY Asencio Route Encounter : [facility] Neurosurgery Skull Base/Tumor ([place] [id number]) * Telephone Encounter - Blanca Starr OSA - 02/04/2024 1:43 PM EST Received initial [employer] STD form, from Gertrude. This has been scanned and placed in Gertrude's POLISHING PAD MOUNTER Navigator folder, for completion. When form is completed please return to patient navigator. ELY Asencio Route Encounter : [facility] Neurosurgery Skull Base/Tumor (P [id number]) documented in this encounter Plan of Treatment Upcoming Encounters Date Type Department Care Team (Late st Contact Info) Description 02/13/2024 1:30 PM EST Pharmacy Pharmacy Hematology Oncology [facility] [place] [address] [place] [address] [facility] Hem[facility]Onc [address] [place] [address] 05/06/2024 8:45 AM EST Imaging Radiology [address], [address] [place] [address] 05/19/2024 9:45 AM EST Office Visit Neurosurgery, [place] [address] [place] [address] Clinic, Brain Tumor Multidisciplinary [address] [place] [address] Health Maintenance Due Date Last Done Comments Pneumococcal Vaccine: Pediatrics (0 to 5 Years) and At-Risk Patients (6 to 64 Years) (1 of 2 - PCV) 1978 HIV Screening 12/22/1987 Diabetic Eye Exam 1990 Diabetic Foot Exam 1990 Hepatitis C Screening 1990 Hepatitis B Vaccine (1 of 3 - 19+ 3-dose series) 12/22/1991 Cologuard 2017 Colonoscopy 2017 Colorectal Cancer [...] this encounter Medical Devices Implanted Type Area Customer Support Executive Device Identifier Shelf Expiration Date Model / Serial / Lot Cover Bur Hol Ti Lo 17 421.527 - [id number] Implanted:Qty: 1 on 01/22/2024 by Neo Lopez III, MD [place] [facility] Left: Head SYNTHES MAXILLOFACIAL 421.527 / / Screw Ti Lo Pro Sd 4mm 400.834 - [id number] Implanted:Qty: 8 on 01/22/2024 by Neo Lopez III, MD at [place] [facility] Left: Head SYNTHES MAXILLOFACIAL 400.834 / / Cover Bur Hol 15mm 421.526 - [id number] Implanted:Qty: 1 on 01/22/2024 by Neo Lopez III, MD at [place] [facility] Left: Head SYNTHES MAXILLOFACIAL 421.526 / / documented as of this encounter Advance Directives Documents on File Type Date Recorded Patient Financial Aid Officer Expl anation Power of Discovery Guide 01/24/2024 signed on 01/21/2024 POWER OF VEHICLE CONTROLS ENGINEER * Full Code (Latest Code Status on [...] Discussed due to patient's condition Care Teams Sas Programmer Remote Relationship Specialty Start Date End Date Rhed, Beverly Aurora, BLADE OPERATOR [address] [place] [address] PCP - General Nurse Practitioner 04/24/23 documented as of this encounter
--- OUTSIDE RECORDS SUMMARY | 2024-05-06 16:14 | External Medical Summary | Summary of Care ---
Author Name Unknown Organization [facility] Address [address] [place] [address] Phone [phone] Care Team Providers Care Real Estate Loan Officer Name Role Phone Beverly Gonzales Aurora OCHOA Primary Care Provider Reason for Visit * Reason Comments Medication Management Encounter Details Date Type Department Care Team (Late st Contact Info) Description 02/12/2024 1:15 PM [facility] Pharmacy Pharmacy Hematology Oncology [facility] [address] [place] [address] [facility], [facility] Clinic Hem/Onc [address] [place], [place] [id number] Glioblastoma multiforme (HCC)* Allergies No known active [...] A WEEK 2 mL 02/04/20 24 Active dexAMETHasone 2 MG Oral Tablet (Decadron) Take 2 Tablets by mouth 3 times a day for 2 days, THEN 2 Tablets 2 times a day with morning and evening meals for 2 days, THEN 1 Tablet 2 times a day with morning and evening meals for 2 days, THEN 1 Tablet daily with breakfast for 2 days. 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 Shakira Stanton Provider has consented patient: Yes Attempted to provide Patient with an introduction to the OCC and complete medication reconciliation. Requested Patient return call at earliest convenience. HEP B Screening was completed 02/12/24 ALINE Barrera Sebd Teacher Hematology Oncology Oral Chemotherapy Clinic Medication Therapy Disease Management [facility] 02/12/24,2:29 PM Time Spent on Encounter: < 5 minutes documented in this encounter Plan of Treatment Upcoming Encounters Date Type Department Care Team (Late st Contact Info) Description 02/13/2024 1:30 PM EST Pharmacy Pharmacy Hematology Oncology [place] [address] [place] [address] [facility], [facility] Clinic Hem/Onc [address] [place] [address] 05/06/2024 8:45 AM EST Imaging Radiology [facility] [place] [address] [facility] [place] [address] 05/19/2024 9:45 AM EST Office Visit Neurosurgery, [place] [address] [place] [address] Clinic, Brain Tumor Multidisciplinary [address] [place] [address] Health Maintenance Due Date Last Done Comments [...] this encounter Medical Devices Implanted Type Area Mock Up Assembler Device Identifier Shelf Expiration Date Model / Serial / Lot Cover Bur Hol Ti Lo 17 421.527 - [id number] Implanted:Qty: 1 on 01/22/2024 by Neo Lopez III, MD at [place] [facility] Left: Head SYNTHES MAXILLOFACIAL 421.527 / / Screw Ti Lo Pro Sd 4mm 400.834 - [id number] Implanted:Qty: 8 on 01/22/2024 by Neo Lopez III, MD at OR [facility] Left: Head SYNTHES MAXILLOFACIAL 400.834 / / Cover Bur Hol 15mm 421.526 - [id number] Implanted:Qty: 1 on 01/22/2024 by Neo Lopez III, MD at OR [facility] Left: Head SYNTHES MAXILLOFACIAL 421.526 / / documented as of this encounter Visit Diagnoses Diagnosis Glioblastoma multiforme (HCC)- Primary Malignant neoplasm of brain, unspecified site documented in this encounter Advance Directives Documents on File Type Date Recorded Patient Electrical And Instrument Mechanic Expl anation Power of Home Staging Specialist 01/24/2024 signed on 01/21/2024 POWER OF CHAIR INSPECTOR * Full Code (Latest Code Status [...] Discussed due to patient's condition Care Teams Real Estate Loan Officer Relationship Specialty Start Date End Date Beverly Gonzales CRNP [address] [place] [address] PCP - General Nurse Practitioner 04/24/23 documented as of this encounter
--- OUTSIDE RECORDS SUMMARY | 2024-05-06 16:14 | External Medical Summary | Summary of Care ---
Author Name Unknown Organization [facility] Address [address] [place] [address] Phone [phone] Care Team Providers Care Milk Handler Name Role Phone Beverly Gonzales Aurora OCHOA Primary Care Provider Reason for Visit * Reason Comments Medication Management Encounter Details Date Type Department Care Team (Late st Contact Info) Description 02/13/2024 1:30 PM [facility] [place] Pharmacy Pharmacy Hematology Oncology [facility] [address] [place] [address] [facility] Hem/Onc [address], [place] [id number] Glioblastoma multiforme (HCC)* Allergies No known active [...] ONCE A WEEK 2 mL 02/04/20 Active dexAMETHasone 2 MG Oral Tablet (Decadron) [...] Additional Information Patient not taking.Reported on 02/13/2024 Ondansetron HCl 8 MG Oral Tablet (Zofran)Indicati [...] 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 Answer Date of Assessment Author No 01/22/2024 4:47 PM TYLORT Kirk Myesr RN * Are you blind or do you have serious difficulty seeing, even when wearing glasses? Answer Date of Assessment Author No 01/22/2024 4:47 PM TYLORT Kikr Myers RN * Do you have serious [...] this encounter Progress Notes * Georgette Robles RPh - 02/13/2024 2:26 PM EST Baseline labs reviewed Orders released to pharmacy Per 02/11 TE, pt to have RT at [facility]. Sim scheduled for 02/14 Georgette Robles, PharmD, BCOP Ambulatory Clinical Pharmacist | Oral Chemotherapy Clinic [facility] 02/13/2024, 2:27 PM * Moon Mercado CPhT - 02/13/2024 12:00 PM EST MEDICATION THERAPY MANAGEMENT TEMOZOLOMIDE INITIAL INTAKE NOTE Mariano Terry Guillen [id number] Patient Phone Numbers Communication: Chart review Treatment: Medication: Temozolomide (Temodar) Indication/Staging/Diagnosis Code: GBM / C71.9 Dose Basis: 75mg/m2 (BSA 2.31m2) Dose: 180mg daily x 6 weeks Administration: 1 hour prior to RT and around the same time on non-radiation days Start Date: TBD Primary Alterations Workroom Clerk/Oncologist: Dr. Shakira Stanton Additional Therapy: RT @[facility] Supportive Care Meds: Ondansetron (to be re-ordered in beacon plan) Docusate Senokot Prophylactic Meds: Consider PJP ppx for ALC< 0.5 Relevant Chronic Medications: Category Medications Pertinent Notes Antihypertensives Losartan/HCTZ 50/12.5mg daily Per PCP Antidiabetic Tirzepatide Metformin ER 1000mg BID Per PCP The Hematology/Oncology Oral Chemotherapy Clinic will assess medication compliance at each patient encounter Assessment and Plan: Yes/no Date Action Taken [place] plan entered? yes 02/08/24 Consent completed? yes 02/07/24 Intro/med rec completed? yes 02/13/24 Precert completed? yes 02/13/24 Test claim completed? yes 02/13/24 GSP - $0 Financial assistance needed? Physician signature? yes 02/08/24 Rx released? Education completed? [facility] will contact patient once med shipped/received to complete medication education Please refer to initial intake note for detailed review of regimen and patient- specific education points Moon Mercado Twister In III Hematology Oncology Oral Chemotherapy Clinic Medication Therapy Disease Management [facility] 02/13/2024 12:02 PM Time Spent on Encounter: < 5 minutes * Jenny Feldman, united [place] attorney - 02/13/2024 9:07 AM EST NEW REFERRAL TO ORAL CHEMO CLINIC/MEDICATION RECONCILIATION NOTE Mariano Guillen [id number] Patient Phone Numbers Communication: Spoke to: Patient Treatment: Medication: Temozolomide (Temodar) Indication/Staging/Diagnosis Code: GBM / C71.9 Dose Basis: 75mg/m2 (BSA 2.31m2) Dose: 180mg daily x 6 weeks Administration: 1 hour prior to RT and around the same time on non-radiation days Start Date: TBD Primary Alterations Workroom Clerk/Oncologist: Dr. Shakira Stanton Provider has consented patient: Yes Patient was introduced to Oral Chemotherapy Clinic: OCC is a free service for patients receiving oral chemo therapy. We are Pharmacists & Pharmacy Technicians, who are a part of hematology & oncology care across the [facility] offering telephone based appointments from the comfort of your own home. Pharmacists are available Sunday-Sunday from 8am - 4:30pm. After 4:30pm, non- urgent messages can be left on the pharmacist voicemail, and urgent calls/questions/concerns should be directed to their oncologist office directly. In case of an emergency, patient is aware to call 911 or travel to nearest emergency department. Communicated to patient: Pharmacists will provide education about your medication, manage oral chemotherapy side effects & review labs. All information will be shared & available to your oncologist. Explained to patient: once they decide on a treatment with their Oncologist, a Pharmacist will review the treatment plan to ensure correct dosing, review labs & medications to prevent any interactions. Medication authorization is submitted to your insurance. Once approved, your Rx will be sent to the Pharmacy determined by your insurance plan. Specialty Pharmacy will contact you to arrange delivery & discuss co-payment and any assistance options, if required. A Pharmacist will contact you to provide medication education, follow up periodically to review lab results & to assess/manage side effects. Patient was reassured the process to obtain medication can take several days-weeks. Patient was informed that hepatitis B screening must be completed prior to initiation of treatment.Completed 02/12/24 Patient has given verbal consent that staff from the Oral Chemotherapy Clinic can speak to Grace Guillen [phone] regarding their treatment. Patient has given verbal consent that staff from the Oral Chemotherapy Clinic can leave a voicemailwith treatment-related information: Yes This information can be left on Cell Performed medication reconciliation with patient; pharmacist will be in touch if there are any druginteractions with oral chemo. Patient voiced understanding on all accounts. ALINE Barrera Tech Twister In Hematology Oncology Oral Chemotherapy Clinic Medication Therapy Disease Management [facility] 02/13/24,9:10 AM Time Spent on Encounter: 11 - 15 minutes Encounter Group: Neuro-Oncology Encounter Interventions Item Category: Oral Chemotherapy Temozolomide Problem/Rationale: Safety: Needs additional monitoring - Medication Requires monitoring Pharmacist Intervention(s): Medication reconciliation Magnitude of Intervention: Monitoring with no interventions (Level 0) documented in this encounter Plan of Treatment Upcoming Encounters Date Type Department Care Team (Late st Contact Info) Description 02/19/2024 3:45 PM EST Pharmacy Pharmacy Hematology Oncology [facility] [address] [place] [address] [facility] Hem/Onc [address] [place] [address] 05/06/2024 8:45 AM EST Imaging Radiology [facility] [place] [address] [employer] [place] [address] 05/19/2024 9:45 AM EST Office Visit Neurosurgery, [place] [address] [place] [address] Clinic, Brain Tumor Multidisciplinary [address] [place] [address] Health Maintenance Due Date Last Done Comments [...] this encounter Medical Devices Implanted Type Area Hardwood Sawyer Device Identifier Shelf Expiration Date Model / Serial / Lot Cover Bur Hol Ti Lo 17 421.527 - [id number] Implanted:Qty: 1 on 01/22/2024 by Neo Lopez III, MD at [place] [facility] Left: Head SYNTHES MAXILLOFACIAL 421.527 / / Screw Ti Lo Pro Sd 4mm 400.834 - [id number] Implanted:Qty: 8 on 01/22/2024 by Neo Lopez III, MD at OR [facility] Left: Head SYNTHES MAXILLOFACIAL 400.834 / / Cover Bur Hol 15mm 421.526 - [id number] Implanted:Qty: 1 on 01/22/2024 by Neo Lopez III, MD at OR [facility] Left: Head SYNTHES MAXILLOFACIAL 421.526 / / documented as of this encounter Visit Diagnoses Diagnosis Glioblastoma multiforme (HCC)- Primary Malignant neoplasm of brain, unspecified site documented in this encounter Advance Directives Documents on File Type Date Recorded Patient Sample Shoe Inspector And Reworker Expl anation Power of Babcock Tester 01/24/2024 signed on 01/21/2024 POWER OF GRAINER MACHINE * Full Code (Latest Code Status on [...] Discussed due to patient's condition Care Teams Milk Handler Relationship Specialty Start Date End Date Beverly Gonzales CRNP [address] [place] [address] PCP - General Nurse Practitioner 04/24/23 documented as of this encounter"
--- OUTSIDE RECORDS SUMMARY | 2024-05-06 16:14 | External Medical Summary | Summary of Care ---
Author Name Unknown Organization [facility] Address [address] [place] [address] Phone [phone] Care Team Providers Care Grinder And Plater Name Role Phone Beverly Gonzaleskay OCHOA Primary Care Provider Reason for Visit * Reason Onset Date Comments Referral 02/18/2024 genetics Encounter Details Date Type Department Care Team (Late st Contact Info) Description 02/18/2024 Telephone Hematology/Oncology Treatment, [place] [address] [place] [address] Keon Stanton MD [address] [place] [address] Referral (genetics) Allergies No known active allergiesdocumented as of [...] stomach.. 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 (5 years old or older) Answer Entry Date Author No 01/22/2024 4:47 PM TYLORT Kirk Myers RN documented in this encounter Miscellaneous Notes * Telephone Encounter - Coco Aleman RN - 02/18/2024 7:[address] Stanton: "NGS checkup on 01/22/2024: -TMB--> 2.84 which is low -MSI stable -SHERRIE mutation noted. - MGMT gene promoter methylation --> not detected. Genetic Clinic evaluation is indicated. Please check with him whether he would like to proceed with that on not. ( I put a genetic Clinic evaluation consultation)." MyG sent. documented in this encounter Plan of Treatment Upcoming Encounters Date Type Department Care Team (Late st Contact Info) Description 02/19/2024 3:45 PM EST Pharmacy Pharmacy Hematology Oncology [facility] [address] [place] [address] [facility] Hem/Onc [address] [place] [address] 05/06/2024 8:45 AM EST Imaging Radiology [address] [address] 05/06/2024 8:45 AM EST Imaging Radiology [address] [facility] [place] [address] 05/19/2024 9:45 AM EST Office Visit Neurosurgery, [place] [address] [place] [address] Clinic, Brain Tumor Multidisciplinary [facility] [place] [address] Health Maintenance Due Date Last Done Comments [...] this encounter Medical Devices Implanted Type Area Nurse Practitioner Per Diem Device Identifier Shelf Expiration Date Model / Serial / Lot Cover Bur Hol Ti Lo 17 421.527 - [id number] Implanted:Qty: 1 on 01/22/2024 by Neo Lopez III, MD at [place] [facility] Left: Head SYNTHES MAXILLOFACIAL 421.527 / / Screw Ti Lo Pro Sd 4mm 400.834 - [id number] Implanted:Qty: 8 on 01/22/2024 by Neo Lopez III, MD at [place] [facility] Left: Head SYNTHES MAXILLOFACIAL 400.834 / / Cover Bur Hol 15mm 421.526 - [id number] Implanted:Qty: 1 on 01/22/2024 by Neo Lopez III, MD at [place] [facility] Left: Head SYNTHES MAXILLOFACIAL 421.526 / / documented as of this encounter Advance Directives Documents on File Type Date Recorded Patient Air And Water Filler Expl anation Power of Build Technician 01/24/2024 signed on 01/21/2024 POWER OF ERECTING ENGINEER * Full Code (Latest Code Status [...] Discussed due to patient's condition Care Teams Grinder And Plater Relationship Specialty Start Date End Date Beverly Gonzales CRNP [address] [address] PCP - General Nurse Practitioner 04/24/23 documented as of this encounter
--- OUTSIDE RECORDS SUMMARY | 2024-05-06 16:14 | External Medical Summary | Summary of Care ---
Author Name Unknown Organization [facility] Address [address] [place] [address] Phone [phone] Care Team Providers Care Continuity Clerk Name Role Phone Beverly Gonzales Aurora OCHOA Primary Care Provider Reason for Visit * Reason Onset Date Comments Forms Request 02/04/2024 Brain Tumor MDC / [facility] STD Form Encounter Details Date Type Department Care Team (Late st Contact Info) Description 02/04/2024 Telephone [facility] [address], [place] [id number] [facility] [address] [place] [address] Forms Request (Brain Tumor MDC / [facility] [...] hypoxemia, suboptimal titration from CPAP to BIPAP [facility] Hypersomnia 12/18/2014 documented as of this [...] 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 This has been scanned and placed in file for 31 days and successfully sent to patient's in a message through [employer] portal per her request. ELY Asencio * Telephone Encounter - Blanca Starr OSA - 02/13/2024 7:34 AM EST Received final [employer] Short Term Disability form, from Gertrude CHASE Navigator. This has been scanned and placed in file for 31 days and faxed successfully to [phone]. ELY Asencio * Telephone Encounter - Gertrude Metcalf LPN - 02/11/2024 3:05 PM EST Forms completed, reviewed and signed by Dr. Lopez. Forms given to Blanca for further processing. * Telephone Encounter - Blanca Starr OSA - 02/04/2024 1:46 PM EST Received initial FMLA form, from Gertrude. This has been scanned and placed in Gertrude's RENA Navigatorfolder, for completion. When form is completed please return to patient navigator. ELY Asencio Route Encounter : [facility] Neurosurgery Skull Base/Tumor (P [id number]) * Telephone Encounter - Blanca Starr OSA - 02/04/2024 1:43 PM EST Received initial [employer] STD form, from Gertrude. This has been scanned and placed in Gertrude's SEWING MACHINE OPERATOR ZIPPER Navigator folder, for completion. When form is completed please return to patient navigator. ELY Asencio Route Encounter : [facility] Neurosurgery Skull Base/Tumor (P [id number]) documented in this encounter Plan of Treatment Upcoming Encounters Date Type Department Care Team (Late st Contact Info) Description 02/13/2024 1:30 PM EST Pharmacy Pharmacy [facility]ology [facility] [place] [address] [place] [address] [facility] Hem/Onc [address] [place] [address] 05/06/2024 8:45 AM EST Imaging Radiology [address], [address] [address] 05/19/2024 9:45 AM EST Office Visit Neurosurgery, [place] [address], [place] [id number] Clinic, Brain Tumor Multidisciplinary [address] [place] [address] Health Maintenance Due Date Last Done Comments [...] this encounter Medical Devices Implanted Type Area Making Machine Operator Device Identifier Shelf Expiration Date Model / Serial / Lot Cover Bur Hol Ti Lo 17 421.527 - [id number] Implanted:Qty: 1 on 01/22/2024 by Neo Lopez III, MD at OR [facility] Left: Head SYNTHES MAXILLOFACIAL 421.527 / / Screw Ti Lo Pro Sd 4mm 400.834 - [id number] Implanted:Qty: 8 on 01/22/2024 by Neo Lopez III, MD at OR [facility] Left: Head SYNTHES MAXILLOFACIAL 400.834 / / Cover Bur Hol 15mm 421.526 - [id number] Implanted:Qty: 1 on 01/22/2024 by Neo Lopez III, MD at OR [facility] Left: Head SYNTHES MAXILLOFACIAL 421.526 / / documented as of this encounter Advance Directives Documents on File Type Date Recorded Patient Plant Utility Person Expl anation Power of Beef Pusher 01/24/2024 signed on 01/21/2024 POWER OF LAN ENGINEER * Full Code (Latest Code Status [...] Discussed due to patient's condition Care Teams Continuity Clerk Relationship Specialty Start Date End Date Beverly Gonzales CRNP [address] [place] [place] [address] PCP - General Nurse Practitioner 04/24/23 documented as of this encounter
--- OUTSIDE RECORDS SUMMARY | 2024-05-06 16:14 | External Medical Summary | Summary of Care ---
Author Name Unknown Organization [facility] Address [address] [place] [address] Phone [phone] Care Team Providers Care Open Source Developer Name Role Phone Beverly Gonzales Aurora OCHOA Primary Care Provider Reason for Visit * Reason Onset Date Comments Precert Future 02/07/2024 temodar Encounter Details Date Type Department Care Team (Late st Contact Info) Description 02/07/2024 Telephone Hematology/Oncology Treatment, [place] [address] [place] [address] Keon Stanton MD [address] [place] [address] Precert Future (temodar) Allergies No known active [...] hypoxemia, suboptimal titration from CPAP to BIPAP [facility] Hypersomnia 12/18/2014 documented as of this [...] 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 TT sent to [facility] rad/onc. * Telephone Encounter - Coco Aleman RN - 02/14/2024 9:47 AM EST Referral entered, can come from [facility]. * Telephone Encounter - Edson Hollins RN - 02/12/2024 2:55 PM EST Pt education completed today. Hep B labs completed today. Pt scheduled for SIM with Rad Onc on 02/14. * Telephone Encounter - Coco Aleman RN - 02/07/2024 3:45 PM EST Order received for temodar with radiation. Sent order to [facility] for beacon uploading. Waiting for auth. Consent signed 02/07/24. Rad/onc consult 02/12/24. Education visit 02/12/24. Patient will need hep B labs. documented in this encounter Plan of Treatment Upcoming Encounters Date Type Department Care Team (Late st Contact Info) Description 02/19/2024 3:45 PM EST Pharmacy Pharmacy Hematology Oncology [facility] [place] [address] [place] [address] [facility] Hem/Onc [address] [place] [address] 05/06/2024 8:45 AM EST Imaging Radiology [address] [address] 05/06/2024 8:45 AM EST Imaging Radiology [address] [place] [address] 05/19/2024 9:45 AM EST Office Visit Neurosurgery, [place] [address] [place] [address] Clinic, Brain Tumor Multidisciplinary [facility] [place] [address] Health Maintenance Due Date Last Done Comments [...] encounter Medical Devices Implanted Type Area Director Mobile Device Identifier Shelf Expiration Date Model / Serial / Lot Cover Bur Hol Ti Lo 17 421.527 - [id number] Implanted:Qty: 1 on 01/22/2024 by Neo Lopez III, MD at [place] [facility] Left: Head SYNTHES MAXILLOFACIAL 421.527 / / Screw Ti Lo Pro Sd 4mm 400.834 - [id number] Implanted:Qty: 8 on 01/22/2024 by Neo Lopez III, MD at [place] [facility] Left: Head SYNTHES MAXILLOFACIAL 400.834 / / Cover Bur Hol 15mm 421.526 - [id number] Implanted:Qty: 1 on 01/22/2024 by Neo Lopez III, MD at [place] [facility] Left: Head SYNTHES MAXILLOFACIAL 421.526 / / documented as of this encounter Results * HEPATITIS B CORE ANTIBODIES IGG AND IGM (02/12/2024 12:59 PM EST) Pathologist [facility] [place] Hepatitis B Core Antibodies IgG and IgM Negative Negative 02/12/2024 6:09 PM EST [facility] Blood Venous blood specimen / Unknown Venipuncture / Unknown 02/12/2024 12:59 PM EST 02/12/2024 1:00 PM EST us Keon Stanton MD LAB BLOOD ORDERABLES Final Res ult LAB[facility] [address] [place] [address] * HEPATITIS B SURFACE ANTIGEN (02/12/2024 12:59 PM EST) Hepatitis B Surface Antigen Negative Negative 02/12/2024 6:09 PM EST [facility] Blood Venous blood specimen / Unknown Venipuncture / Unknown 02/12/2024 12:59 PM EST 02/12/2024 1:00 PM EST Keon Stanton MD LAB BLOOD ORDERABLES Final Res ult Performing Organization Address [facility] de Phone Number LAB[facility]ORY [facility] [address] [place] [address] * HEPATITIS B SURFACE ANTIBODY (02/12/2024 12:59 PM EST) Hepatitis B Surface Antibody, Quantitative <3.5 mIU/mL 02/12/2024 6:09 PM EST [facility] Hepatitis B Surface Antibody, Qualitative Negative 02/12/2024 6:09 PM EST [facility] Hepatitis B Surface Antibody, Interpretation NOT immune to Hepatitis B Virus 02/12/2024 6:09 PM EST [facility] Comment: POSITIVE: >=11.5 mIU/mL INDETERMINATE: 8.5-<11.5 mIU/mL NEGATIVE: <8.5 mIU/mL Blood Venous blood specimen / Unknown Venipuncture / Unknown 02/12/2024 12:59 PM EST 02/12/2024 1:00 PM EST Keon Stanton MD LAB BLOOD ORDERABLES Final Res ult Performing Organization Address [facility] de Phone Number LABORATORY [place] [address] [place] [address] documented in this encounter Visit Diagnoses Diagnosis Glioblastoma multiforme (HCC)- Primary Malignant neoplasm of brain, unspecified site documented in this encounter Advance Directives Documents on File Type Date Recorded Patient Scouring Train Operator Expl anation Power of Glass Bulb Silverer 01/24/2024 signed on 01/21/2024 POWER OF SAFETY AND HEALTH MANAGER * Full Code (Latest Code Status [...] Discussed due to patient's condition Care Teams Open Source Developer Relationship Specialty Start Date End Date Beverly Gonzales CRNP [address] [place] [address] PCP - General Nurse Practitioner 04/24/23 documented as of this encounter
--- OUTSIDE RECORDS SUMMARY | 2024-05-06 16:14 | External Medical Summary | Summary of Care ---
Author Name Unknown Organization [facility] Address [address] [place] [address] Phone [phone] Care Team Providers Care Trophy Assembler Name Role Phone Beverly Gonzaleskay OCHOA Primary Care Provider Reason for Visit * Reason Onset Date Comments Follow Up 02/08/2024 3D recon order Encounter Details Date Type Department Care Team (Late st Contact Info) Description 02/08/2024 Telephone Radiology [facility]st [facility] [address] Services, Scheduling [address] [place] [address] Follow Up (3D recon order ) Allergies No known active allergiesdocumented as of this encounter (statuses as of 02/15/2024) Medications BiPAP every night at bedtime . 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 Not [...] encounter Miscellaneous Notes * Telephone Encounter - Cherie Barraza OSA - 02/08/2024 5:06 PM EST Pt is sched for 05-06-2024 for MRI brain There is also a recon order but I am not able to get this scheduled It comes up with a note about needing review Can anyone help get this on the schedule documented in this encounter Plan of Treatment Upcoming Encounters Date Type Department Care Team (Late st Contact Info) Description 02/19/2024 3:45 PM EST Pharmacy Pharmacy Hematology Oncology [address] [address] [facility], [facility] Clinic Hem/Onc [address] [place] [address] 05/06/2024 8:45 AM EST Imaging Radiology [address] [address] 05/06/2024 8:45 AM EST Imaging Radiology [address] [address] 05/19/2024 9:45 AM EST Office Visit Neurosurgery, [address] [address] Clinic, Brain Tumor Multidisciplinary [address] [place] [address] Health Maintenance Due Date Last Done Comments [...] this encounter Medical Devices Implanted Type Area Mutual Fund Sales Agent Device Identifier Shelf Expiration Date Model / Serial / Lot Cover Bur Hol Ti Lo 17 421.527 - [id number] Implanted:Qty: 1 on 01/22/2024 by Neo Lopez III, MD at OR [facility] Left: Head SYNTHES MAXILLOFACIAL 421.527 / / Screw Ti Lo Pro Sd 4mm 400.834 - [id number] Implanted:Qty: 8 on 01/22/2024 by Neo Lopez III, MD at OR [facility] Left: Head SYNTHES MAXILLOFACIAL 400.834 / / Cover Bur Hol 15mm 421.526 - [id number] Implanted:Qty: 1 on 01/22/2024 by Neo Lopez III, MD at OR [facility] Left: Head SYNTHES MAXILLOFACIAL 421.526 / / documented as of this encounter Advance Directives Documents on File Type Date Recorded Patient Property Officer Expl anation Power of Art Critic 01/24/2024 signed on 01/21/2024 POWER OF SALES ESTIMATOR * Full Code (Latest Code Status on [...] Discussed due to patient's condition Care Teams Trophy Assembler Relationship Specialty Start Date End Date Beverly Gonzales CRNP [address] [place] [address] PCP - General Nurse Practitioner 04/24/23 documented as of this encounter
--- OUTSIDE RECORDS SUMMARY | 2024-05-06 16:14 | External Medical Summary | Summary of Care ---
Author Name Unknown Organization [facility] Address [address] [place] [address] Phone [phone] Care Team Providers Care Wet Milling Wheel Operator Name Role Phone Faizanhenry Beverly OCHOA Primary Care Provider Reason for Referral * Evaluate & Treat - Unlimited Visits (Within 10 days (routine)) - Authorized Specialty Diagnoses / Procedures Referred By Erich rodgers Referred To Contact Pharmacist / Pharmacy Diagnoses Glioblastoma multiforme (HCC) [facility] [address] [place] [address] Phone: tel: fax: Referral ID Status Reason Start Date Expiration Date Visits Requested Visits Authorized [id number] Authorized Specialty Services Required 4 [phone] 99 Question Answer Referral Priority Within 10 days (routine) Where should this appointment be scheduled? [facility] Referring Provider Role: Specialist Specialty: Heme/Onc Reason for Referral: Oral Chemo Has consent been obtained for new oral chemo agent(s)? Yes Comments ORAL CHEMOTHERAPY [facility] MONITORING REFERRAL This patient is being referred to the Oral Chemotherapy Clinic for medication co-management. The planned duration of treatment is: 6 weeks Please start oral chemotherapy: Once therapy has arrived from specialty pharmacy Oral Chemotherapy Monitoring will continue until one of the following discharge criteria has been met. The provider will be informed if any of these occur. 1. Disease progression. 2. Patient non-compliance 3. Compliance and tolerating treatment well without major toxicities with routine provider follow up. 4. Completion of therapy. Additional Comments: N/A By my signature, I understand that my patient will have their medication therapy managed by the [facility] Medication Therapy Disease Management Clinic ([facility]) per established policies, procedures, and protocols. I also certify that this referral may serve as an initiation of service for the management of drug therapy in the above noted patient. [facility] providers will be responsible for scheduling patient visits, obtaining appropriate laboratory studies, and adjusting medication management therapy per patient's need, in addition to those roles spelled out in the clinic policy, procedures, and drug management protocols. I understand that the service provided by the [facility] Clinic is voluntary and have informed patient that they can refuse the service at their discretion. I am aware that the [facility] Clinic will provide me with a copy of the patient encounter via my [employer]. I authorize the [facility] Clinic to carry out these activities on my behalf. I consider this program to be a necessary part of the patient's medical care. Encounter Details Date Type Department Care Team (Late st Contact Info) Description 02/08/2024 Orders Only Hematology/Oncology Ayleen Rogers [place] [address] [facility] [place] [phone] Keon Stanton MD 200 [place] [address] Glioblastoma multiforme (HCC)* Allergies No known active [...] SUBCUTANEOUSLY ONCE A WEEK 2 mL Active dexAMETHasone 2 MG Oral Tablet (Decadron) Take 2 Tablets by mouth 3 times a day for 2 days, THEN 2 Tablets 2 times a day with morning and evening meals for 2 days, THEN 1 Tablet 2 times a day with morning and evening meals for 2 days, THEN 1 Tablet daily with breakfast for 2 days. 26 Tablet 024 2023 Active Additional Information Patient not taking.Reported on 02/13/2024 Ondansetron HCl 8 MG Oral Tablet (Zofran)Indicatio ns:Glioblastoma multiforme (HCC) Take 1 Tablet by mouth every 8 hours as needed for Nausea. 60 Tablet Active Temozolomide 180 MG Oral Capsule (Temodar)Indicati ons:Glioblastoma multiforme (HCC) Take 1 Capsule by mouth in the morning. 1 hour before radiation treatment and at the same time on non radiation days. Take medication on empty stomach.. 42 Capsule Active Ondansetron 4 MG Oral Tablet Disintegrating (Zofran) Place 1 Tablet on tongue and let it dissolve every 6 hours as needed for Nausea or Vomiting. 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 Not on [...] Kirk Beckett RN documented in this encounter Plan of Treatment Upcoming Encounters Date Type Department Care Team (Late st Contact Info) Description 02/19/2024 3:45 PM EST [facility] [place] [address] [place] [address] [facility] Hem[facility]Onc [address] [place] [address] 05/06/2024 8:45 AM EST Imaging Radiology [address] [address] 05/19/2024 9:45 AM EST Office Visit Neurosurgery, [place] [address] [place] [address] Clinic, Brain Tumor Multidisciplinary [address] [place] [address] Scheduled Orders Name Type Priority Associated Diagnoses Orde r Schedule CBC WITH WBC DIFFERENTIAL Lab STAT Glioblastoma multiforme (HCC) Every Week for 12 Occurrences starting 02/13/2024 until 02/12/2025 COMPREHENSIVE METABOLIC PANEL Lab Routine Glioblastoma multiforme (HCC) Every Week for 12 Occurrences starting 02/13/2024 until 02/12/2025 Scheduled Referrals Name Type Priority Associated Diagnoses Orde r Schedule PHARMACIST MEDS THERAPY MGMT REFERRAL OP Referral Within 10 days (routine) Glioblastoma multiforme (HCC) Ordered: 02/13/2024 Health Maintenance Due Date Last Done Comments [...] this encounter Medical Devices Implanted Type Area Drug Safety Coordinator Device Identifier Shelf Expiration Date Model / Serial / Lot Cover Bur Hol Ti Lo 17 421.527 - [id number] Implanted:Qty: 1 on 01/22/2024 by Neo Lopez III, MD [place] [facility] Left: Head SYNTHES MAXILLOFACIAL 421.527 / / Screw Ti Lo Pro Sd 4mm 400.834 - [id number] Implanted:Qty: 8 on 01/22/2024 by Neo Lopez III, MD [place] [facility] Left: Head SYNTHES MAXILLOFACIAL 400.834 / / Cover Bur Hol 15mm 421.526 - [id number] Implanted:Qty: 1 on 01/22/2024 by Neo Lopez III, MD at [place] [facility] Left: Head SYNTHES MAXILLOFACIAL 421.526 / / documented as of this encounter Visit Diagnoses Diagnosis Glioblastoma multiforme (HCC)- Primary Malignant neoplasm of brain, unspecified site documented in this encounter Advance Directives Documents on File Type Date Recorded Patient Care Services Manager Expl anation Power of Parts Sales Manager 01/24/2024 signed on 01/21/2024 POWER OF ANIMAL ATTENDANTS AND TRAINERS * Full Code (Latest Code Status on [...] Discussed due to patient's condition Care Teams Wet Milling Wheel Operator Relationship Specialty Start Date End Date Beverly Gonzales CRNP [address] [place] [address] PCP - General Nurse Practitioner 04/24/23 documented as of this encounter
--- OUTSIDE RECORDS SUMMARY | 2024-05-06 16:15 | External Medical Summary | Summary of Care ---
Author Name Unknown Organization [facility] Address [address] [facility] [place] [address] Phone [phone] Care Team Providers Care Linux Server Engineer Name Role Phone Beverly Gonzaleslle DON Primary Care Provider Reason for Visit * Reason Comments Education Temodar Encounter Details Date Type Department Care Team (Late st Contact Info) Description 02/12/2024 2:00 PM EST Pt Ed by Nurse Hematology/Oncology [facility] [place] [address] [place] [address] Nurse Sue Hem Onc [facility] 200 [facility] [place] [address] Arrived Allergies No known active allergiesdocumented as of this encounter (statuses as of 02/12/2024) Medications BiPAP every night at bedtime . [...] days. 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 (5 years old or older) Answer Date of Assessment Author No 01/22/2024 4:47 PM TYLORT Kirk Myers RN * Because of a physical, mental, or emotional condition, do you have difficulty doing errands alone such as visiting a doctors office or shopping? (15 years old or older) Answer Date of Assessment Author No 01/22/2024 4:47 PM EDT Kirk Myers, RN documented as of this encounter Mental Status * Because of a physical, mental, or emotional condition, do you have serious difficulty concentrating, remembering, or making decisions? (5 years old or older) Answer Entry Date Author No 01/22/2024 4:47 PM EDT Kirk Myers RN documented in this encounter Progress Notes * Edson Hollins RN - 02/12/2024 2:48 PM EST Education completed. documented in this encounter Plan of Treatment Upcoming Encounters Date Type Department Care Team (Late st Contact Info) Description 02/13/2024 1:30 PM EST Pharmacy Pharmacy Hematology Oncology [facility] [address] [place] [address] Gm, [facility] Clinic Hem/Onc [address] [place] [address] 05/06/2024 8:45 AM EST Imaging Radiology [facility] [address] [address] 05/19/2024 9:45 AM EST Office Visit Neurosurgery, [place] [address] [place] [address] Clinic, Brain Tumor Multidisciplinary [address] [place] [address] Health Maintenance Due Date Last Done Comments [...] Influenza Vaccine (FLU shot) (#1) 2023 HbA1c 07/29/2024 01/30/2024, 12/0 06/2022, 11/18/2022, Additional history exists DTap/Tdap Vaccines (2 - Td or Tdap) 11/14/2024 11/14/2014 GFR 02/11/2025 02/12/2024, 12/25, 01/16/2024, Additional history exists Lipid Panel 05/04/2027 05/04/2022, 11/14/2014 HPV (Gardasil) Vaccine Aged Out No lo nger eligible based on patient's age to complete this topic MENINGOCOCCAL (MENACTRA/MENVEO) Aged Out No longer eligible based on patient's age to complete this topic documented as of this encounter Medical Devices Implanted Type Area Delivery Professional Device Identifier Shelf Expiration Date Model / Serial / Lot Cover Bur Hol Ti Lo 17 421.527 - [id number] Implanted:Qty: 1 on 01/22/2024 by Neo Lopez III, MD at [place] [facility] [place] Left: Head SYNTHES MAXILLOFACIAL 421.527 / / Screw Ti Lo Pro Sd 4mm 400.834 - [id number] Implanted:Qty: 8 on 01/22/2024 by Neo Lopez III, MD at OR [facility] [place] Left: Head SYNTHES MAXILLOFACIAL 400.834 / / Cover Bur Hol 15mm 421.526 - [id number] Implanted:Qty: 1 on 01/22/2024 by Neo Lopez III, MD at OR [facility] [place] Left: Head SYNTHES MAXILLOFACIAL 421.526 / / documented as of this encounter Advance Directives Documents on File Type Date Recorded Patient Esl Teacher Expl anation Power of Scenic Artist 01/24/2024 signed on 01/21/2024 POWER OF LMSW * Full Code (Latest Code Status on [...] Discussed due to patient's condition Care Teams Linux Server Engineer Relationship Specialty Start Date End Date Beverly Gonzales CRNP [address] [place] [address] PCP - General Nurse Practitioner 04/24/23 documented as of this encounter
--- OUTSIDE RECORDS SUMMARY | 2024-05-06 16:15 | External Medical Summary ---
Author Name Unknown Address Unknown Organization K01:[facility] - [address] [place] [address] Laboratory Report Ordering Provider Test Date Status JUAN SAENZ 02/12/2024 12:59:00 Final Observation Date Value Abnormality Reference (Units ) Status Hep B surface Ag 02/12/2024 12:59:00 Negative Neg ative Final Performing Location [facility] [address] [place] [address]
--- OUTSIDE RECORDS SUMMARY | 2024-05-06 16:15 | External Medical Summary | Summary of Care ---
Author Name Unknown Organization [facility] Address [address] [facility] [address] Phone [phone] Care Team Providers Care Shoe Repairer Helper Name Role Phone Beverly Gonzales [place] OCHOA Primary Care Provider Reason for Visit * Reason Comments Outpatient Testing Encounter Details Date Type Department Care Team (Late st Contact Info) Description 02/12/2024 1:00 PM EST Laboratory Laboratory [facility] [place] [address] [place] [address] [facility] [address] [place] [address] Encounter for long-term (current) use of medications; Glioblastoma multiforme (HCC); Screening for viral disease Allergies No known active allergiesdocumented as of [...] hypoxemia, suboptimal titration from CPAP to BIPAP [facility] Hypersomnia 12/18/2014 documented as of this encounter [...] EST Pharmacy Pharmacy Hematology Oncology [facility] [place] [address] [place] [address] [facility], [facility] Hem/Onc [address] [place] [address] 05/06/2024 8:45 AM EST Imaging Radiology [address], [address] [address] 05/19/2024 9:45 AM EST Office Visit Neurosurgery, [place] [address] [place] [address] Clinic, Brain Tumor Multidisciplinary [address] [place] [address] Pending Results Name Type Priority Associated Diagnoses Date /Time LIPID PANEL WITH DIRECT LDL IF TG IS HIGH Lab Routine Encounter for long-term (current) use of medications 02/12/2024 1:00 PM EST HEMOGLOBIN A1C Lab Routine Encounter for long-term (current) use of medications 02/12/2024 1:00 PM EST VITAMIN B12 Lab Routine Encounter for long-term (current) use of medications 02/12/2024 1:00 PM EST HEPATITIS B SURFACE ANTIBODY Lab STAT Glioblastoma multiforme (HCC) 02/12/2024 12:59 PM EST HEPATITIS B SURFACE ANTIGEN Lab STAT Glioblastoma multiforme (HCC) 02/12/2024 12:59 PM EST HEPATITIS B CORE ANTIBODIES IGG AND IGM Lab STAT Glioblastoma multiforme (HCC) 02/12/2024 12:59 PM EST Health Maintenance Due Date Last Done Comments [...] this encounter Medical Devices Implanted Type Area Motor Vehicle Dispatcher Device Identifier Shelf Expiration Date Model / Serial / Lot Cover Bur Hol Ti Lo 17 421.527 - [id number] Implanted:Qty: 1 on 01/22/2024 by Neo Lopez III, MD at OR [facility] Left: Head SYNTHES MAXILLOFACIAL 421.527 / / Screw Ti Lo Pro Sd 4mm 400.834 - [id number] Implanted:Qty: 8 on 01/22/2024 by Neo Lopez III, MD at OR [facility] Left: Head SYNTHES MAXILLOFACIAL 400.834 / / Cover Bur Hol 15mm 421.526 - [id number] Implanted:Qty: 1 on 01/22/2024 by Neo Lopez III, MD at OR [facility] Left: Head SYNTHES MAXILLOFACIAL 421.846 / / documented as of this encounter Procedures Procedure Name Priority Date/Time Associated Diagnosis Comments DIFFERENTIAL, AUTOMATED STAT 02/12/2024 1:01 PM EST Glioblastoma multiforme (HCC) CBC STAT 02/12/2024 1:01 PM EST Glioblastoma multiforme (HCC) CBC STAT 02/12/2024 1:01 PM EST Glioblastoma multiforme (HCC) COMPREHENSIVE METABOLIC PANEL STAT 02/12/2024 1:00 PM EST Glioblastoma multiforme (HCC) documented in this encounter Results * DIFFERENTIAL, AUTOMATED (02/12/2024 1:01 PM EST) WBC 10.56 4.00 - 10.80 K/uL 02/12/2024 1:04 PM EST [facility] [place] 56-02 Neutrophils % 71.7 40.0 - 75.0 % 02/12/2024 1:04 PM EST [facility] [place] 56-02 Lymphocytes % 18.2 18.0 - 42.0 % 02/12/2024 1:04 PM EST [facility] [place] 56-02 Monocytes % 7.6 1.0 - 11.0 % 02/12/2024 1:04 PM EST [facility] [place] 56-02 Eosinophils % 2.2 0.0 - 6.0 % 02/12/2024 1:04 PM EST [facility] [place] 56-02 Basophils % 0.3 0.0 - 2.0 % 02/12/2024 1:04 PM EST [facility] [place] 56-02 Absolute Neutrophils 7.58 1.80 - 7.70 K/uL 02/12/2024 1:04 PM EST [facility] [place] 56-02 Absolute Lymphocytes 1.92 1.00 - 4.80 K/ul 02/12/2024 1:04 PM EST [facility] [place] 56-02 Absolute Monocytes 0.80 0.00 - 1.10 K/uL 02/12/2024 1:04 PM [facility] 56-02 Absolute Eosinophils 0.23 0.00 - 0.70 K/uL 02/12/2024 1:04 PM [facility] 56 Absolute Basophils 0.03 0.00 - 0.20 K/uL 02/12/2024 1:04 PM [facility] 56 Blood Venous blood specimen / Unknown Venipuncture / Unknown 02/12/2024 1:01 PM EST 02/12/2024 1:01 PM EST us Keon Stanton MD LAB BLOOD ORDERABLES Final Res ult [facility] [address] [place] [address] * CBC (02/12/2024 1:01 PM EST) WBC 10.56 4.00 - 10.80 K/uL 02/12/2024 1:04 PM [facility] 56 RBC 5.53 4.50 - 5.25 M/uL 02/12/2024 1:04 PM [facility] 56 HGB 16.2 14.0 - 16.8 g/dL 02/12/2024 1:04 PM [facility] 56 HCT 47.4 40.0 - 48.4 % 02/12/2024 1:04 PM [facility] 56 MCV 85.7 82.0 - 99.5 fL 02/12/2024 1:04 PM [facility] 56 MCH 29.3 27.0 - 34.0 pg 02/12/2024 1:04 PM [facility] 56 MCHC 34.2 32.0 - 36.0 g/dL 02/12/2024 1:04 PM [facility] 56- RDW 13.8 11.5 - 15.5 % 02/12/2024 1:04 PM [facility] 56- PLT 184 140 - 400 K/uL 02/12/2024 1:04 PM [facility] 56 MPV 10.2 6.6 - 11.1 fL 02/12/2024 1:04 PM [facility] 56 Blood Venous blood specimen / Unknown Venipuncture / Unknown 02/12/2024 1:01 PM EST 02/12/2024 1:01 PM EST us Keon Stanton MD LAB BLOOD ORDERABLES Final Res ult [place] [address] [place], [place] [id number] * (ABNORMAL) COMPREHENSIVE METABOLIC PANEL (02/12/2024 1:00 PM EST) BUN 24(H) 6 - 20 mg/dL 02/12/2024 1:24 PM EST [address] CREATININE 0.8 0.6 - 1.2 mg/dL 02/12/2024 1:24 PM EST [address] EGFR >90 >=60 mL/min 02/12/2024 1:24 PM EST [address] Comment:eGFR is calculated b ased on the CKD-EPI 2020 equation. SODIUM 140 135 - 146 mmol/L 02/12/2024 1:24 PM EST [address] POTASSIUM 3.8 3.5 - 5.1 mmol/L 02/12/2024 1:24 PM EST [facility] 56 CHLORIDE 103 98 - 107 mmol/L 02/12/2024 1:24 PM EST [facility] 56 CO2 26 22 - 32 mmol/L 02/12/2024 1:24 PM EST [facility] 56 ANION GAP 11 7 - 15 mmol/L 02/12/2024 1:24 PM EST [facility] 56 GLUCOSE 156(H) 70 - 120 mg/dL 02/12/2024 1:24 PM EST [facility] 56 Albumin 3.5(L) 3.8 - 5.0 g/dL 02/12/2024 1:24 PM EST [facility] 56 AST 13 10 - 50 U/L 02/12/2024 1:24 PM EST [facility] 56 Alkaline Phosphatase 49 35 - 130 U/L 02/12/2024 1:24 PM EST [facility] 56 Bilirubin, Total 0.6 <=1.2 mg/dL 02/12/2024 1:24 PM EST [facility] 56- CALCIUM 9.0 8.4 - 10.2 mg/dL 02/12/2024 1:24 PM EST [facility] 56-02 Protein 5.7(L) 6.0 - 8.3 g/dL 02/12/2024 1:24 PM EST [facility] 56-02 ALT 28 10 - 50 U/L 02/12/2024 1:24 PM EST [facility] 56-02 Blood Venous blood specimen / Unknown Venipuncture / Unknown 02/12/2024 1:00 PM EST 02/12/2024 1:00 PM EST us Keon Stanton MD LAB BLOOD ORDERABLES Final Res ult [facility] 56-[address] [place] [address] documented in this encounter Visit Diagnoses Diagnosis Encounter for long-term (current) use of medications Encounter for long-term (current) use of other medications Glioblastoma multiforme (HCC) Malignant neoplasm of brain, unspecified site Screening for viral disease Special screening examination for unspecified viral disease documented in this encounter Advance Directives Documents on File Type Date Recorded Patient Recreation Facility Attendant Expl anation Power of Metal Bonding Press Operator 01/24/2024 signed on 01/21/2024 POWER OF PAINTER * Full Code (Latest Code Status on [...] Discussed due to patient's condition Care Teams Shoe Repairer Helper Relationship Specialty Start Date End Date Beverly Gonzales CRNP [address] [place] [address] PCP - General Nurse Practitioner 04/24/23 documented as of this encounter
--- OUTSIDE RECORDS SUMMARY | 2024-05-06 16:15 | External Medical Summary | Summary of Care ---
Author Name Unknown Organization [facility] Address [address] [place] [address] Phone [phone] Care Team Providers Care Physical Therapy Assistant Instructor Name Role Phone Beverly Gonzales Aurora OCHOA Primary Care Provider Reason for Visit * Reason Comments Medication Management Encounter Details Date Type Department Care Team (Late st Contact Info) Description 02/12/2024 1:15 PM [facility] Pharmacy Pharmacy Hematology Oncology [facility] [address] [place] [address] [facility] Clinic Hem/Onc [address], [place] [id number] Glioblastoma multiforme (HCC)* Allergies No known active [...] 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 Shakira Stanton Provider has consented patient: Yes Attempted to provide Patient with an introduction to the OCC and complete medication reconciliation. Requested Patient return call at earliest convenience. HEP B Screening was completed 02/12/24 ALINE Barrera Tech Field Artillery Radar Operator Hematology Oncology [facility] Medication Therapy Disease Management [facility] 02/12/24,2:29 PM Time Spent on Encounter: < 5 minutes documented in this encounter Plan of Treatment Upcoming Encounters Date Type Department Care Team (Late st Contact Info) Description 02/13/2024 1:30 PM EST Pharmacy Pharmacy Hematology Oncology [facility] [address] [place] [address] [facility], [facility] Clinic Hem/Onc [address] [place] [address] 05/06/2024 8:45 AM EST Imaging Radiology [address] [address] 05/19/2024 9:45 AM EST Office Visit Neurosurgery, [place] [address] [place] [address] Clinic, Brain Tumor Multidisciplinary [address] [place] [address] Health Maintenance Due Date Last Done Comments [...] this encounter Medical Devices Implanted Type Area Machine Setter Supervisor Device Identifier Shelf Expiration Date Model / Serial / Lot Cover Bur Hol Ti Lo 17 421.527 - [id number] Implanted:Qty: 1 on 01/22/2024 by Neo Lopez III, MD at [place] [facility] [place] Left: Head SYNTHES MAXILLOFACIAL 421.527 / / Screw Ti Lo Pro Sd 4mm 400.834 - [id number] Implanted:Qty: 8 on 01/22/2024 by Neo Lopez III, MD at [place] [facility] [place] Left: Head SYNTHES MAXILLOFACIAL 400.834 / / Cover Bur Hol 15mm 421.526 - [id number] Implanted:Qty: 1 on 01/22/2024 by Neo Lopez III, MD at [place] [facility] [place] Left: Head SYNTHES MAXILLOFACIAL 421.526 / / documented as of this encounter Visit Diagnoses Diagnosis Glioblastoma multiforme (HCC)- Primary Malignant neoplasm of brain, unspecified site documented in this encounter Advance Directives Documents on File Type Date Recorded Patient Youth Support Worker Expl anation Power of Account Auditor 01/24/2024 signed on 01/21/2024 POWER OF BLACK JACK DEALER * Full Code (Latest Code Status on [...] Discussed due to patient's condition Care Teams Physical Therapy Assistant Instructor Relationship Specialty Start Date End Date Beverly Gonzales CRNP [address] [place] [address] PCP - General Nurse Practitioner 04/24/23 documented as of this encounter
--- OUTSIDE RECORDS SUMMARY | 2024-05-06 16:15 | External Medical Summary ---
Author Name Unknown Address Unknown Organization [id number]:[facility] [place] [address] Laboratory Report Ordering Provider Test Date Status JUAN SAENZ 02/12/2024 13:01:09 Final Observation Date Value Abnormality Reference (Units ) Status WBC, Total 02/12/2024 13:01:09 10.56 4.00-10.8 0 (K/uL) Final RBC 02/12/2024 13:01:09 5.53 4.50-5.25 (M/uL) Final Hemoglobin 02/12/2024 13:01:09 16.2 14.0-16.8 (g/dL) Final HCT 02/12/2024 13:01:09 47.4 40.0-48.4 (%) Final MCV 02/12/2024 13:01:09 85.7 82.0-99.5 (fL) Final MCH 02/12/2024 13:01:09 29.3 27.0-34.0 (pg) Final MCHC 02/12/2024 13:01:09 34.2 32.0-36.0 (g/dL) Final RDW 02/12/2024 13:01:09 13.8 11.5-15.5 (%) Final Platelets 02/12/2024 13:01:09 184 140-400 (K /uL) Final MPV 02/12/2024 13:01:09 10.2 6.6-11.1 ( fL) Final Performing Location [facility] [place] [address]
--- OUTSIDE RECORDS SUMMARY | 2024-05-06 16:15 | External Medical Summary | Summary of Care ---
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 Hep B labs completed today. Pt scheduled for SIM with Rad Onc on 02/14. * Telephone Encounter - Coco Aleman RN - 02/07/2024 3:45 PM EST Order received for temodar with radiation. Sent order to [facility] for beacon uploading. Waiting for auth. Consent signed 02/07/24. Rad/onc consult 02/12/24. Education visit 02/12/24. Patient will need hep B labs. documented in this encounter Plan of Treatment Upcoming Encounters Date Type Department Care Team (Late st Contact Info) Description 02/13/2024 1:30 PM EST Pharmacy Pharmacy Hematology Oncology [facility] [place] [address] [place] [address] [facility] Clinic Hem/Onc [address] [place] [address] 05/06/2024 8:45 AM EST Imaging [address]iology [address] [address] 05/19/2024 9:45 AM EST Office Visit Neurosurgery, [place] [address] [place] [address] Clinic, Brain Tumor Multidisciplinary [address] [place] [address] Pending Results Name Type Priority Associated Diagnoses Date /Time HEPATITIS B SURFACE ANTIBODY Lab STAT Glioblastoma multiforme (HCC) 02/12/2024 1:00 PM EST HEPATITIS B SURFACE ANTIGEN Lab STAT Glioblastoma multiforme (HCC) 02/12/2024 1:00 PM EST HEPATITIS B CORE ANTIBODIES IGG AND IGM Lab STAT Glioblastoma multiforme (HCC) 02/12/2024 1:00 PM EST Scheduled Orders Name Type Priority Associated Diagnoses Orde r Schedule HEPATITIS B SURFACE ANTIBODY Lab STAT Glioblastoma multiforme (HCC) Expected: 02/07/2024 (Approximate), Expires: 02/06/2025 HEPATITIS B SURFACE ANTIGEN Lab STAT Glioblastoma multiforme (HCC) Expected: 02/07/2024 (Approximate), Expires: 02/06/2025 HEPATITIS B CORE ANTIBODIES IGG AND IGM Lab STAT Glioblastoma multiforme (HCC) Expected: 02/07/2024 (Approximate), Expires: 02/06/2025 Health Maintenance Due Date Last Done Comments [...] this encounter Medical Devices Implanted Type Area Textile Machine Maintenance Mechanic Device Identifier Shelf Expiration Date Model / Serial / Lot Cover Bur Hol Ti Lo 17 421.527 - [id number] Implanted:Qty: 1 on 01/22/2024 by Neo Lopez III, MD at [place] [facility] [place] Left: Head SYNTHES MAXILLOFACIAL 421.527 / / Screw Ti Lo Pro Sd 4mm 400.834 - [id number] Implanted:Qty: 8 on 01/22/2024 by Neo Lopez III, MD at [place] [facility] [place] Left: Head SYNTHES MAXILLOFACIAL 400.834 / / Cover Bur Hol 15mm 421.526 - [id number] Implanted:Qty: 1 on 01/22/2024 by Neo Lopez III, MD at [place] [facility] [place] Left: Head SYNTHES MAXILLOFACIAL 421.526 / / documented as of this encounter Visit Diagnoses Diagnosis Glioblastoma multiforme (HCC)- Primary Malignant neoplasm of brain, unspecified site documented in this encounter Advance Directives Documents on File Type Date Recorded Patient Infertility Medical Assistant Expl anation Power of Hepatology Physician 01/24/2024 signed on 01/21/2024 POWER OF NURSE CARE MANAGER * Full Code (Latest Code Status [...] Discussed due to patient's condition Care Teams Conservation Scientist Relationship Specialty Start Date End Date Beverly Gonzales CRNP [address] [place] [address] PCP - General Nurse Practitioner 04/24/23 documented as of this encounter
--- OUTSIDE RECORDS SUMMARY | 2024-05-06 16:15 | External Medical Summary ---
Author Name Unknown Address Unknown Organization [id number][facility] [place] [address] Laboratory Report Ordering Provider Test Date Status JUAN SAENZ 02/12/2024 13:01:09 Final Observation Date Value Abnormality Reference (Units ) Status SYNC LEUKOCYTES IN BLOOD BY AUTOMATED COUNT 02/12/2024 13:01:09 10.56 4.00-10.80 (K/uL) Final Segs 02/12/2024 13:01:09 71.7 40.0-75.0 (%) Final Lymphs % 02/12/2024 13:01:09 18.2 18.0-42.0 (%) Final Monos 02/12/2024 13:01:09 7.6 1.0-11.0 (%) Final Eosinophils 02/12/2024 13:01:09 2.2 0.0-6.0 (%) Final Basos 02/12/2024 13:01:09 0.3 0.0-2.0 (%) Final Absolute Segs 02/12/2024 13:01:09 7.58 1.80-7.70 (K/uL) Final Lymphs, absolute 02/12/2024 13:01:09 1.92 1.00-4.80 (K/ul) Final Monos, Abs 02/12/2024 13:01:09 0.80 0.00-1.10 (K/uL) Final Eos, Abs 02/12/2024 13:01:09 0.23 0.00-0.70 (K/uL) Final Basos, Abs 02/12/2024 13:01:09 0.03 0.00-0.20 (K/uL) Final Performing Location [facility] [place] [address]
--- OUTSIDE RECORDS SUMMARY | 2024-05-06 16:15 | External Medical Summary ---
Author Name Unknown Address Unknown Organization K01:[facility] [place] [address] [place] [address] Laboratory Report Ordering Provider Test Date Status JUAN SAENZ 02/12/2024 12:59:00 Final Observation Date Value Abnormality Reference (Units) Status Hepatitis B virus surface Ab [Units/volume] in Serum or Plasma by Immunoassay 02/12/2024 12:59:00 <3.5 (mIU/mL) Final Hepatitis B virus surface Ab [Presence] in Serum by Immunoassay 02/12/2024 12:59:00 Negative Final HEPATITIS B SURFACE ANTIBODY, INTERPRETATION 02/12/2024 12:59:00 NOT immune to Hepatitis B Virus Final POSITIVE: >=11.5 mIU/mL
INDETERMINATE: 8.5-<11.5 mIU/mL
NEGATIVE: <8.5 mIU/mL Performing Location [facility] [place] [facility] [address] [place] [address]
--- OUTSIDE RECORDS SUMMARY | 2024-05-06 16:15 | External Medical Summary ---
Author Name Unknown Address Unknown Organization [id number]:[facility] [place] - [address] [place] [address] Laboratory Report Ordering Provider Test Date Status KING ALLEN 02/12/2024 13:00:45 Final Observation Date Value Abnormality Reference (Units ) Status Vitamin B12 02/12/2024 13:00:45 [phone] (pg/mL) Final Performing Location [facility] - [address] [facility] [place] [address]
--- OUTSIDE RECORDS SUMMARY | 2024-05-06 16:15 | External Medical Summary | Summary of Care ---
Author Name Unknown Organization [facility] Address [address] [place] [address] Phone [phone] Care Team Providers Care Twister In Name Role Phone Beverly Gonzales Aurora OCHOA Primary Care Provider Reason for Visit * Reason Comments Outpatient Testing Encounter Details Date Type Department Care Team (Late st Contact Info) Description 02/12/2024 1:00 PM EST Laboratory Laboratory [facility] [place] [address] [place] [address] [facility] [address] [place] [address] Encounter for long-term (current) use of medications; [...] hypoxemia, suboptimal titration from CPAP to BIPAP [facility] [place] Hypersomnia 12/18/2014 documented as of this encounter [...] 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 Not on [...] PM EST Pt Ed by Nurse Hematology/[facility] [address] [place] [address] Nurse Sue Hem Onc [facility] [address] [facility] [place] [address] Arrived 02/13/2024 1:30 PM EST Pharmacy [facility] [address] [place] [address] [facility] Hem/Onc [address] [place] [address] 05/06/2024 8:45 AM EST Imaging Radiology [address] [address] 05/19/2024 9:45 AM EST Office Visit Neurosurgery, [place] [address] [place] [address] Clinic, Brain Tumor Multidisciplinary [address] [place] [address] Pending Results Name Type Priority Associated Diagnoses [...] Glioblastoma multiforme (HCC) 02/12/2024 1:00 PM EST COMPREHENSIVE METABOLIC PANEL Lab STAT Glioblastoma multiforme (HCC) 02/12/2024 1:00 PM EST Health Maintenance Due Date Last [...] - Td or Tdap) 11/14/2024 11/14/2014 GFR 01/21/2025 01/22/2024, 12/25, 11/18/2022, Additional history exists Lipid Panel 05/04/2027 05/04/2022, 11/14/2014 HPV (Gardasil) Vaccine Aged Out No lo nger eligible based on patient's age to complete this topic MENINGOCOCCAL (MENACTRA/MENVEO) Aged Out No longer eligible based on patient's age to complete this topic documented as of this encounter Medical Devices Implanted Type Area Gear Cutting Machine Operator Device Identifier Shelf Expiration Date Model / Serial / Lot Cover Bur Hol Ti Lo 17 421.527 - [id number] Implanted:Qty: 1 on 01/22/2024 by Neo Lopez III, [place] [facility] [place] Left: Head SYNTHES MAXILLOFACIAL 421.527 / / Screw Ti Lo Pro Sd 4mm 400.834 - [id number] Implanted:Qty: 8 on 01/22/2024 by Neo Lopez III, MD [place] [facility] [place] Left: Head SYNTHES MAXILLOFACIAL 400.834 / / Cover Bur Hol 15mm 421.526 - [id number] Implanted:Qty: 1 on 01/22/2024 by Neo Lopez [...] 02/12/2024 1:01 PM EST Glioblastoma multiforme (HCC) documented in this encounter Results * DIFFERENTIAL, AUTOMATED (02/12/2024 1:01 PM EST) WBC 10.56 4.00 - 10.80 K/uL 02/12/2024 1:04 PM EST [facility] [place] 56-02 Neutrophils % 71.7 40.0 - 75.0 % 02/12/2024 1:04 PM EST [facility] [place] 56-02 Lymphocytes % 18.2 18.0 - 42.0 % 02/12/2024 1:04 PM EST [facility] [place] 56-02 Monocytes % 7.6 1.0 - 11.0 % 02/12/2024 1:04 PM EST [facility] [place] 56-02 Eosinophils % 2.2 0.0 - 6.0 % 02/12/2024 1:04 PM EST LABORATORY [facility] 56-02 Basophils % 0.3 0.0 - 2.0 % 02/12/2024 1:04 PM EST [facility] [place] 56-02 Absolute Neutrophils 7.58 1.80 - 7.70 K/uL 02/12/2024 1:04 PM [facility] 56- Absolute Lymphocytes 1.92 1.00 - 4.80 K/ul 02/12/2024 1:04 PM [facility] 56- Absolute Monocytes 0.80 0.00 - 1.10 K/uL 02/12/2024 1:04 PM [facility] 56- Absolute Eosinophils 0.23 0.00 - 0.70 K/uL 02/12/2024 1:04 PM [facility] 56- Absolute Basophils 0.03 0.00 - 0.20 K/uL 02/12/2024 1:04 PM [facility] 56- Blood Venous blood specimen / Unknown Venipuncture / Unknown 02/12/2024 1:01 PM EST 02/12/2024 1:01 PM EST us Keon Stanton MD LAB BLOOD ORDERABLES Final Res ult [facility] [address]- [address] [place] [address] * CBC (02/12/2024 1:01 PM EST) WBC 10.56 4.00 - 10.80 K/uL 02/12/2024 1:04 PM [facility] 56- RBC 5.53 4.50 - 5.25 M/uL 02/12/2024 1:04 PM [facility] 56- HGB 16.2 14.0 - 16.8 g/dL 02/12/2024 1:04 PM [facility] 56- HCT 47.4 40.0 - 48.4 % 02/12/2024 1:04 PM [facility] 56- MCV 85.7 82.0 - 99.5 fL 02/12/2024 1:04 PM [facility] 56- MCH 29.3 27.0 - 34.0 pg 02/12/2024 1:04 PM [facility] 56- MCHC 34.2 32.0 - 36.0 g/dL 02/12/2024 1:04 PM [facility] 56- RDW 13.8 11.5 - 15.5 % 02/12/2024 1:04 PM EST [facility] 56- PLT 184 140 - 400 K/uL 02/12/2024 1:04 PM EST [facility] 56- MPV 10.2 6.6 - 11.1 fL 02/12/2024 1:04 PM EST [facility] 56-02 Blood Venous blood specimen / Unknown Venipuncture / Unknown 02/12/2024 1:01 PM EST 02/12/2024 1:01 PM EST us Keon Stanton MD LAB BLOOD ORDERABLES Final Res ult [facility] 56- [address] [place] [address] documented in this encounter Visit Diagnoses Diagnosis Encounter for long-term (current) use of medications Encounter for long-term (current) use of other medications Glioblastoma multiforme (HCC) Malignant neoplasm of brain, unspecified site Screening for viral disease Special screening examination for unspecified viral disease documented in this encounter Advance Directives Documents on File Type Date Recorded Patient Bulk Folder Expl anation Power of Project Manager/Design Manager 01/24/2024 signed on 01/21/2024 POWER OF SURGEON/PRESIDENT * Full Code (Latest Code Status on [...] Discussed due to patient's condition Care Teams Twister In Relationship Specialty Start Date End Date Beverly Gonzales CRNP [address] [place] [address] PCP - General Nurse Practitioner 04/24/23 documented as of this encounter
--- OUTSIDE RECORDS SUMMARY | 2024-05-06 16:15 | External Medical Summary ---
Author Name Unknown Address Unknown Organization K01:[facility] [place] - [address] [place] [address] Laboratory Report Ordering Provider Test Date Status JUAN SAENZ 02/12/2024 12:59:00 Final Observation Date Value Abnormality Reference (Units ) Status Hepatitis B virus core Ab [Presence] in Serum 02/12/2024 12:59:00 Negative Negative Final Performing Location [facility] - [address] [place] [address]
--- OUTSIDE RECORDS SUMMARY | 2024-05-06 16:15 | External Medical Summary | Summary of Care ---
Author Name Unknown Organization [facility] Address [address] [place] [address] Phone [phone] Care Team Providers Care Children'S Tutor Nursery Name Role Phone Beverly Gonzales Aurora OCHOA Primary Care Provider Reason for Referral * Evaluate & Treat - Unlimited Visits (Within 3 days (urgent)) - Authorized Specialty Diagnoses / Procedures Referred By Contac t Referred To Contact Radiation Oncology Diagnoses Glioblastoma of parietal lobe (HCC) Karrie Mirza MD [address] [place] [address] Phone: tel: fax: Referral ID Status Reason Start Date Expiration Date Visits Requested Visits Authorized [id number] Authorized Specialty Services Required 4 [phone] Question Answer Referral Priority Within 3 days (urgent) Where should this appointment be scheduled? External - [facility] Radiation Oncology What is the preferred location to have this test performed? Non-S Site Comments 53 yo M patient with newly diagnosed High grade glioma (WHO grade 4) * Evaluate & Treat - Unlimited Visits (Within 10 days (routine)) - Authorized Specialty Diagnoses / Procedures Referred By Contac t Referred To Contact Hematology/Oncology / Hematology Oncology Diagnoses Glioblastoma of parietal lobe (HCC) Neo Lopez III, MD [address] [place] [address] Phone: tel: fax: Referral ID Status Reason Start Date Expiration Date Visits Requested Visits Authorized [id number] Authorized Specialty Services Required 4 [phone] Question Answer Referral Priority Within 10 days (routine) Where should this appointment be scheduled? [facility] Reason for Referral Malignant Oncology (Solid Organ Cancer) - glioblastoma * (Within 10 days (routine)) - Pending Review Specialty Diagnoses / Procedures Referred By Erich rodgers Referred To Contact Radiology Diagnoses Glioblastoma of parietal lobe (HCC) Procedures MRI NEURO 3-D RECONSTRUCTION Neo Lopez III, MD [address] [place] [address] Phone: tel: fax: Referral ID Status Reason Start Date Expiration Date V isits Requested Visits Authorized [id number] Pending Review 05/06/2024 999 999 * Precert (Within 10 days (routine)) - Pending Review Specialty Diagnoses / Procedures Referred By Erich rodgers Referred To Contact Radiology Diagnoses Glioblastoma of parietal lobe (HCC) Procedures MRI BRAIN W WO CONTRAST Neo Lopez III, MD [address] [place] [address] Phone: tel: fax: Referral ID Status Reason Start Date Expiration Date V isits Requested Visits Authorized [id number] Pending Review 05/06/2024 999 999 Reason for Visit * Reason Comments Return Neuro Encounter Details Date Type Department Care Team (Late st Contact Info) Description 02/04/2024 9:45 AM EST Office Visit Neurosurgery, [place] [address] [place] [address] Clinic, Brain Tumor Multidisciplinary [address], [place] [id number] Glioblastoma of parietal lobe (HCC)* Allergies No known active allergiesdocumented as [...] (morning, before bedtime). 30 Tablet 1 01/18/20 12:06 PM EDT Active Additional Information Patient [...] 01/23/20 24 3:38 PM EDT 024 Active Docusate Sodium 100 MG Oral Capsule (Colace) Take 1 Capsule by mouth twice per day (morning, before bedtime). 10 Capsule 01/23/20 24 3:38 PM EDT 024 Active Additional Information Patient not taking.Reported on 02/04/2024 Sennosides 8.6 MG Oral Tablet (Senokot) Take 2 Tablets by mouth in the morning. 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 Not on file Not on file documented as of this encounter Last Filed Vital Signs Vital Sign Reading Time Taken Comments Blood Pressure 132/92 02/04/2024 9:36 AM EST Pulse 71 02/04/2024 9:36 AM EST Temperature 36.7 C (98.1 F) 02/04/2024 9:36 AM ES T Respiratory Rate - - Oxygen Saturation 96% 02/04/2024 9:36 AM EST Inhaled Oxygen Concentration - - Weight 118.9 kg (262 lb 1.6 oz) 02/04/2024 9:36 AM EST Height 165.1 cm (5' 5") 02/04/2024 9:36 AM EST Body Mass Index 43.62 02/04/2024 9:36 AM EST documented in this [...] Kirk Beckett RN documented in this encounter Patient Instructions * Patient Instructions* Gertrude Metcalf LPN - 02/04/2024 9:46 AM EST You were seen today by the Brain Tumor Mult[facility] at [facility]. You were seen today by Dr. Lopez (Neurosurgery), Dr. Mirza (Radiation Oncology) History: New GBM Imaging Review: We reviewed your most recent MRI imaging and pathology Treatment Plan: Radiation and Chemotherapy Referrals placed: Hem/Onc/Rad Onc Follow up with us in 1 month post completion of RT/Chemo with repeat imaging. If you have any questions after today's visit, please contact our clinic at [phone]. You may ask to be connected to the Neuro Oncology team, or they will refer your message to us so we may respond in a timely manner. Thank you! documented in this encounter Progress Notes * Karrie Mirza MD - 02/04/2024 10:14 AM EST RADIATION ONCOLOGY CONSULTATION NOTE [facility] - Radiation Oncology Mariano Guillen was seen in consultation by Radiation Oncology at [facility] on 02/04/24 Physicians: Karrie Mirza MD PATIENT NAME: Mariano Guillen PATIENT REFERRING PROVIDER: Dr. Lopez DIAGNOSIS: 53 year old male with left parietal glioblastoma, IDH wild type, WHO grade 4, MGMT gene promotor methylation not detected (by PCR), EGFR not amplified (by FISH). S/p left craniotomy for tumor resection 01/22/24 HPI: 53 year old male with above diagnosis, who presents for an opinion regarding the role of radiation therapy in the management of the patient's disease. Final recommendations will be communicated back to the requesting physician by way of the shared medical record, or letter to requesting physician via US mail. Mariano Guillen is a 53 year old male who with past medical history of HTN, T2DM, obesity, and ELY. He presented to an outside hospital with right lower lower extremity numbness that progressed to right upper extremity numbness. CT scan showed a possible left parieto-occipital lesion with surrounding vasogenic edema causing mass effect. [facility] MRI of the brain on 01/16/2024 showed infiltrating enhancing tumor in the medial aspect of the left parietal lobe measuring up to 3.6 cm most consistent with high-grade glioma, such asglioblastoma. The tumor extends inferiorly and medially in the splenium of the corpus callosum with possible sub ependymal spread into the adjacent atrium of the left lateral ventricle. Possible extension of malignancy into 1 the left parietal cortical sulci behind the tumor. Moderate peritumoral vasogenic edema with associated local mass effect was also present. Possible invasion of the tumor inthe medial aspect of the left cortical spinal tract with trach displaced laterally as well was seen. Peritumoral edema involved the left cortical spinal tract. On 01/22/2024, the patient underwent left craniotomy for tumor resection with Dr. Lopez. Pathologyshowed glioblastoma, IDH wild type, WHO grade 4, MGMT gene promotor methylation not detected (by PCR), EGFR not amplified (by FISH). Post-op MRI showed postsurgical changes of left parietal craniotomy for tumor resection are noted with associated magnetic susceptibility from postsurgical blood products and pneumocephalus. There has been resection of the majority of the contrast-enhancing tumor with mild residual enhancement at the anterior and deep resection cavity margins extending into the corpus callosum. Adjacent vasogenicedema again noted. He presents today for follow-up postoperatively and for Radiation Oncology consultation. He overallfeels well and his craniotomy scar has healed well. He reports slight weakness in the RLE and numbness in the distal RLE. Otherwise denies any further neurologic complaints. Prior radiation therapy, collagen vascular disease, or inflammatory bowel disease: no Any implanted or external electric devices? no status: pt is male Review of patient's allergies indicates: No Known Allergies Current Outpatient Medications Medication Sig Dispense Refill Acetaminophen 325 MG Oral Tablet (Tylenol) Take 3 Tablets by mouth every 6 hours as needed for Fever >38C(100.5F) or mild pain. 30 Tablet 0 BiPAP every night at bedtime . Docusate Sodium 100 MG Oral Capsule (Colace) Take 1 Capsule by mouth twice per day (morning, beforebedtime). (Patient not taking: Reported on 02/04/2024) 10 Capsule 0 Famotidine 20 MG Oral Tablet (Pepcid) Take 1 Tablet by mouth twice per day (morning, before bedtime). (Patient not taking: Reported on 02/04/2024) 30 Tablet 1 Losartan Potassium-HCTZ 50-12.5 MG Oral Tablet (Hyzaar) take 1 AND 1/2 tablets by mouth every morning 135 Tablet 0 metFORMIN HCl ER 500 MG Oral Tablet Extended Release 24 Hour (Glucophage XR) Take 2 tablets by mouth twice daily 120 Tablet 2 Mounjaro 2.5 MG/0.5ML Subcutaneous Solution Pen-injector (Tirzepatide) INJECT 1 SYRINGE SUBCUTANEOUSLY ONCE A WEEK 2 mL 0 Nicotine 14 MG/24HR Transdermal Patch 24 [...] Reported on 02/04/2024) 30 Patch 1 Ondansetron 4 MG Oral Tablet Disintegrating (Zofran) Place 1 Tablet on tongue and let it dissolve every 6 hours as needed for Nausea or Vomiting. 20 Tablet 0 oxyCODONE HCl 5 MG Oral Tablet (Oxy IR) Take 1 Tablet by mouth every 4 hours as needed for moderatepain. (Patient not taking: Reported on 02/04/2024) 30 Tablet 0 Sennosides 8.6 MG Oral Tablet (Senokot) Take 2 Tablets by mouth in the morning. (Patient not taking: Reported on 02/04/2024) 10 Tablet 0 Ventolin HFA 108 (90 Base) MCG/ACT Inhalation Aerosol Solution Inhale 2 Puffs by mouth every 4 hours as needed for Cough, Shortness of Breath or Wheezing. (Patient not taking: Reported on 01/22/2024)18 g 1 No current facility-administered medications for this visit. Past Medical History: Diagnosis Date Hypertension Morbid obesity (HCC) Sleep apnea Sleep apnea, obstructive Past Surgical History: Procedure Laterality Date INFORMATION Left left hand surgery to remove nail from hand MICROSURGERY ADD-ON Left 01/22/2024 MICROSURGICAL SURGERY REQUIRING MICROSCOPE LISTED SEPARATELY performed by Neo Lopez III, [place] [facility] [place]OVE SUPRATENTORIAL BRAIN TUMOR Left 01/22/2024 CRANIOTOMY BONE FLAP EXCISION BRAIN TUMOR SUPRATENTORIAL performed by Neo Lopez III, MDa [place] [facility] family history includes No Past Hx in his none. 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 Tobacco Use Smoking status: Former Types: Cigarettes Start date: 2018 Smokeless tobacco: Current Types: Snuff Vaping Use Vaping status: Never Used Substance and Sexual Activity Alcohol use: Not Currently Alcohol/week: 14.0 standard drinks of alcohol Types: 14 12 oz of beer per week Comment: on weekends- 4 at a time Drug use: No Social Needs Social Connections Residence: [facility] COMPLETE REVIEW OF SYSTEMS: As in HPI PHYSICAL EXAM: VS: BP 132/92 (BP Site: Right Arm, BP Position: Sitting, BP Cuff Size: Large) | Pulse 71 | Temp 36.7 C (98.1 F) (Tympanic) | Ht 1.651 m (5' 5") | Wt 118.9 kg (262 lb 1.6 oz) | SpO2 96% | BMI 43.62 kg/m | BSA 2.34 m KPS: 90 Physical Exam Constitutional: General: He is not in acute distress. Pulmonary: Effort: Pulmonary effort is normal. No respiratory distress. Neurological: Mental Status: He is alert and oriented to person, place, and time. Cranial Nerves: No cranial nerve deficit. Well healed craniotomy incision. Ashley were removed today in clinic by Dr. Lopez. Per Neurosurgery exam: Strength is slightly diminished in RLE He is numb distally in the RLE with good pulses but no proprioception. RADIOLOGY/LABORATORY DATA: As in [facility] ASSESSMENT AND PLAN: Mariano Guillen is a 53 year old male with left parietal glioblastoma, IDH wild type, WHO grade 4, MGMT gene promotor methylation not detected (by PCR), EGFR not amplified (by FISH). S/p left craniotomy for tumor resection 01/22/24 We discussed the imaging and pathology findings in details. We recommended adjuvant chemoradiation therapy with 60 Gy in 30 fractions with concurrent and adjuvant temozolomide. We also discussed obtaining an MRI of the brain 1 month after completion of chemoRT and the role of TTF with adjuvant TMZ. We discussed the logistics, rationale, risks, benefits, alternatives, and personnel of radiation with Mariano Guillen. All questions were answered to his satisfaction. He lives in [facility] would like referral to [facility] for RT. We will refer him to local medical oncologist as well. I spent a total of 40-54 minutes (exact time 50 mins) on the date of service in preparation, delivery, and documentation of the care provided to Mariano Guillen excluding any time spent in the performance of separately billed services or time spent by another provider/QHP. Karrie Mirza MD Neurosurgery[address] [address] * Neo Lopez III, MD - 02/04/2024 9:42 AM EST Neurosurgery Post-op Note [facility], [place], [address] S/p L parietal crani for WHO 4 glioma on 01/22/24 Mariano is doing well today. He continues to have the RLE sensory and proprioceptive concerns. There have been no issues related to his incision except that it itches. Denies erythema, edema, or drainage from incision site. Denies fevers. PHYSICAL EXAMINATION BP 132/92 (BP Site: Right Arm, BP Position: Sitting, BP Cuff Size: Large) | Pulse 71 | Temp 36.7 C (98.1 F) (Tympanic) | Ht 1.651 m (5' 5") | Wt 118.9 kg (262 lb 1.6 oz) | SpO2 96% | BMI 43.62 kg/m | BSA 2.34 m Neurologically stable AA&O No acute distress Follows all commands Pleasant and cooperative PERRL CN II-XII grossly intact Lina spontaneously Strength is only maybe slightly diminished in RLE He is numb distally in the RLE with good pulses but no proprioception Incision site clean, dry, and intact. No signs of infection. I removed the jessica without incidentafter cleansing with chlorhexidine and placed steri strips. IMAGES: no new imaging but we reviewed his PO MRI results with him. ASSESSMENT/PLAN: Mariano is doing well postop. We discussed wound care and postop care. We discussed the pathology. Molecular is pending. He needs STUPP. We made a referral to med onc in [place] and he can get XRT at [facility]. Dr. Mirza will ref him to Dr. Stanton. All questions were answered. We will see him back in 3 mo with a new MRI and the visit can be done telemedicine. Neo Lopez III, MD, PhD 02/04/2024 9:44 AM documented in this encounter Nursing Notes * Viviane Oneal CMA - 02/04/2024 9:41 AM EST Patient was instructed to not get up [...] PM EST Pt Ed by Nurse Hematology/Oncology [place] [place] [address] [place] [phone] Sue Nurse Hem Onc [place] [address] [place] [address] Arrived 02/13/2024 1:30 PM EST Pharmacy Pharmacy Hematology Oncology [facility] [place] [address] [place] [address] [facility] Hem/Onc [address] [place] [address] 05/06/2024 8:45 AM EST Imaging Radiology [address], [address] [address] 05/19/2024 9:45 AM EST Office Visit Neurosurgery, [place] [address] [place] [address] Clinic, Brain Tumor Multidisciplinary [address] [place] [address] Scheduled Orders Name Type Priority Associated Diagnoses Order Schedule MRI BRAIN W WO CONTRAST Medical Imaging Routine Glioblastoma of parietal lobe (HCC) Expected: 05/06/2024, Expires: 03/05/2025 MRI NEURO 3-D RECONSTRUCTION Medical Imaging Routine Glioblastoma of parietal lobe (HCC) Expected: 05/06/2024, Expires: 03/05/2025 Scheduled Referrals Name Type Priority Associated Diagnoses Orde r Schedule HEMATOLOGY/ONCOLOGY REFERRAL OP Referral Within 10 days (routine) Glioblastoma of parietal lobe (HCC) Ordered: 02/04/2024 RADIATION/ONCOLOGY REFERRAL OP Referral Within 3 days (urgent) Glioblastoma of parietal lobe (HCC) Ordered: 02/04/2024 Health Maintenance Due Date Last Done Comments [...] (FLU shot) (#1) 2023 HbA1c 07/29/2024 01/30/2024, 12/06/2022, 11/18/2022, Additional history exists DTap/Tdap Vaccines (2 [...] this encounter Medical Devices Implanted Type Area Physical Therapy Technician Device Identifier Shelf Expiration Date Model / Serial / Lot Cover Bur Hol Ti Lo 17 421.527 - [id number] Implanted:Qty: 1 on 01/22/2024 by Neo Lopez III, MD at [place] [facility] Left: Head SYNTHES MAXILLOFACIAL 421.527 / / Screw Ti Lo Pro Sd 4mm 400.834 - [id number] Implanted:Qty: 8 on 01/22/2024 by Neo Lopez III, MD at [place] [facility] Left: Head SYNTHES MAXILLOFACIAL 400.834 / / Cover Bur Hol 15mm 421.526 - [id number] Implanted:Qty: 1 on 01/22/2024 by Neo Lopez III, MD at [place] [facility] Left: Head SYNTHES MAXILLOFACIAL 421.526 / / documented as of this encounter Visit Diagnoses Diagnosis Glioblastoma of parietal lobe (HCC)- Primary Malignant neoplasm of parietal lobe of brain documented in this encounter Advance Directives Documents on File Type Date Recorded Patient Pmo Analyst Expl anation Power of Research Consultant 01/24/2024 signed on 01/21/2024 POWER OF LOT TECHNICIAN * Full Code (Latest Code Status on [...] Discussed due to patient's condition Care Teams Children'S Tutor Nursery Relationship Specialty Start Date End Date Beverly Gonzales CRNP [address] [address] PCP - General Nurse Practitioner 04/24/23 documented as of this encounter
--- OUTSIDE RECORDS SUMMARY | 2024-05-06 16:15 | External Medical Summary ---
Author Name Unknown Address Unknown Organization K09:[facility] [address] [place] [address] Laboratory Report Ordering Provider Test Date Status JUAN SAENZ 02/12/2024 13:00:38 Final Observation Date Value Abnormality Reference (Units ) Status BUN 02/12/2024 13:00:38 24 Above high normal 6-20 (mg/dL) Final Creatinine 02/12/2024 13:00:38 0.8 0.6-1.2 (mg/dL) Final Glomerular filtration rate/1.73 sq M.predicted [Volume Rate/Area] in Serum, Plasma or Blood by Creatinine-based formula (CKD-EPI) 02/12/2024 13:00:38 >90 >=60 (mL/min) Final eGFR is calculated based on the CKD-EPI 2020 equation. Sodium 02/12/2024 13:00:38 140 135-146 (m mol/L) Final Potassium 02/12/2024 13:00:38 3.8 3.5-5.1 (m mol/L) Final Cl 02/12/2024 13:00:38 103 98-107 (mm ol/L) Final CO2 02/12/2024 13:00:38 26 22-32 (mmo l/L) Final Anion gap 02/12/2024 13:00:38 11 7-15 (mmol /L) Final Glucose 02/12/2024 13:00:38 156 Above high normal 70 -120 (mg/dL) Final Albumin 02/12/2024 13:00:38 3.5 Below low normal 3.8 -5.0 (g/dL) Final AST (Aspartate aminotransferase) 02/12/2024 13:00:38 13 10-50 (U/L) Fin al Alk Phos 02/12/2024 13:00:38 49 35-130 (U/ L) Final Bilirubin, Total 02/12/2024 13:00:38 0.6 <=1 .2 (mg/dL) Final Calcium 02/12/2024 13:00:38 9.0 8.4-10.2 ( mg/dL) Final Protein 02/12/2024 13:00:38 5.7 Below low normal 6.0 -8.3 (g/dL) Final ALT (Alanine aminotransferase) 02/12/2024 13:00:38 28 10-50 (U/L) Amari porter Performing Location [facility] [address] [place] [address]
--- OUTSIDE RECORDS SUMMARY | 2024-05-06 16:15 | External Medical Summary ---
Author Name Unknown Address Unknown Organization K01:[facility] [place] [facility] [address] [place] [address] Laboratory Report Ordering Provider Test Date Status KING ALLEN 02/12/2024 13:00:49 Final Observation Date Value Abnormality Reference (Units ) Status HbA1C 02/12/2024 13:00:49 5.8 Above high normal 4. 0-5.6 (%) Final The use of HbA1c to monitor glycemic status is based on normal hemoglobin and HbA composition. This test should not be used in patients with abnormal hemoglobin that affects the half life of the red blood cell or the in vivo glycation rates. Glucose, estimated average 02/12/2024 13:00:49 120 <126 (mg/dL) Final Performing Location [facility] [place] [facility] [address] [facility] [address]
--- OUTSIDE RECORDS SUMMARY | 2024-05-06 16:15 | External Medical Summary | Summary of Care ---
Author Name Unknown Organization [facility] Address [address] [place] [address] Phone [phone] Care Team Providers Care Locomotive Engineer Name Role Phone Beverly Gonzales Aurora OCHOA Primary Care Provider Reason for Visit * Reason Onset Date Comments Referral 02/12/2024 Encounter Details Date Type Department Care Team (Late st Contact Info) Description 02/12/2024 Telephone Radiation Oncology, [place] [address] [phone] Karrie Mirza MD [address] [place] [address] Referral Allergies No known active allergiesdocumented as [...] 1 10/25/202 4 12:06 PM EDT 01/18/20 24 Active [...] hypoxemia, suboptimal titration from CPAP to BIPAP [facility] Hypersomnia 12/18/2014 documented as of this [...] 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 Thank you Cheyanne Rose RAD ONC [facility] documented in this encounter Plan of Treatment Upcoming Encounters Date Type Department Care Team (Late st Contact Info) Description 02/12/2024 1:00 PM EST Laboratory Laboratory [facility]ines [address] [place] [phone] Sue Lab [facility] [address] [place] [address] 02/12/2024 1:15 PM EST Pharmacy Pharmacy Hematology Oncology [address] [address] [facility] Hem/[place]c [facility] [place] [address] 02/12/2024 2:00 PM EST Pt Ed by Nurse Hematology/Oncology [facility]ines [address] [place] [phone] Sue Nurse Hem Onc [facility] [address] [place] [address] 02/13/2024 1:30 PM EST Pharmacy Pharmacy Hematology Oncology [address] [place] [address] [facility] Hem/Onc [address] [place] [address] 05/06/2024 8:45 AM EST Imaging Radiology [address], [address] [place] [address] 05/19/2024 9:45 AM EST Office Visit Neurosurgery, [place] [address] [place] [address] Clinic, Brain Tumor Multidisciplinary [address] [place] [address] Health Maintenance Due Date Last Done Comments [...] this encounter Medical Devices Implanted Type Area Cisco Network Architect Device Identifier Shelf Expiration Date Model / Serial / Lot Cover Bur Hol Ti Lo 17 421.527 - [id number] Implanted:Qty: 1 on 01/22/2024 by Neo Lopez III, MD at [place] [facility] Left: Head SYNTHES MAXILLOFACIAL 421.527 / / Screw Ti Lo Pro Sd 4mm 400.834 - [id number] Implanted:Qty: 8 on 01/22/2024 by Neo Lopez III, MD at [place] [facility] Left: Head SYNTHES MAXILLOFACIAL 400.834 / / Cover Bur Hol 15mm 421.526 - [id number] Implanted:Qty: 1 on 01/22/2024 by Neo Lopez III, MD at [place] [facility] Left: Head SYNTHES MAXILLOFACIAL 421.526 / / documented as of this encounter Advance Directives Documents on File Type Date Recorded Patient Zinc Miner Blasting Expl anation Power of Revising Clerk 01/24/2024 signed on 01/21/2024 POWER OF MOTOR POOL DRIVER * Full Code (Latest Code Status on [...] Discussed due to patient's condition Care Teams Locomotive Engineer Relationship Specialty Start Date End Date Beverly Gonzales CRNP [address] [address] PCP - General Nurse Practitioner 04/24/23 documented as of this encounter
--- OUTSIDE RECORDS SUMMARY | 2024-05-06 16:15 | External Medical Summary ---
Author Name Unknown Address Unknown Organization K01:LABORATORY C - [address] [facility] [place] [address] Laboratory Report Ordering Provider Test Date Status KING ALLEN 02/12/2024 13:00:45 Final Observation Date Value Abnormality Reference (Units ) Status Triglyceride 02/12/2024 13:00:45 101 <=174 ( mg/dL) Final Triglyceride Reference Range s (mg/dL):
<150 Acceptable
150-174 Borderline high
175-499 High
>=500 Very high Cholesterol 02/12/2024 13:00:45 139 <200 (mg /dL) Final Total Cholesterol Reference Ranges (mg/dL):
<200 Desirable
200-239 Borderline high
>=240 High HDL 02/12/2024 13:00:45 64 >39 (mg/dL ) Final HDL Cholesterol Reference Ra nges (mg/dL):
>=60 High (Desirable)
<50 Low (Undesirable) For Females
<40 Low (Undesirable) For Males NON-HDL CHOLESTEROL 02/12/2024 13:00:45 75 <=159 (mg/dL) Final Non-HDL Cholesterol Referenc e Range (mg/dL):
<100 Target level for high risk ASCVD patient
<130 Optimal for general population
130-159 Near optimal for general population
160-189 Borderline High
190-219 High
>=220 Very High LDL, (calculated) 02/12/2024 13:00:45 55 <= 129 (mg/dL) Final LDL Cholesterol Reference Ra nges (mg/dL):
<70 Target level for high risk ASCVD patient
<100 Optimal for general population
100-129 Near optimal for general population
130-159 Borderline high
160-189 High
>=190 Very high Performing Location LABORATORY [facility] - [address] [facility] [address]
--- OUTSIDE RECORDS SUMMARY | 2024-05-06 16:16 | External Medical Summary | Summary of Care ---
Author Name Unknown Organization [facility] Address [address] [place] [address] Phone [phone] Care Team Providers Care [employer] Hazmat Tanker Driver Name Role Phone Beverly Gonzales Aurora OCHOA Primary Care Provider Reason for Visit * Reason Comments Medication Management Encounter Details Date Type Department Care Team (Late st Contact Info) Description 02/08/2024 1:00 PM [facility] Pharmacy Pharmacy Hematology Oncology [facility]3] [address] [place] [address] [facility] Hem/Onc [address] [place], [place] [id number] Glioblastoma multiforme (HCC)* Allergies No known active allergiesdocumented as of this encounter (statuses as of 02/08/2024) Medications BiPAP every night at bedtime . 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 Shakira Stanton Additional Therapy: RT @[facility] Supportive Care Meds: Ondansetron (to be re-ordered in beacon plan) Docusate Senokot Prophylactic Meds: Consider PJP ppx for ALC< 0.5 Relevant Chronic Medications: Category Medications Pertinent Notes Antihypertensives Losartan/HCTZ 50/12.5mg daily Per PCP Antidiabetic Tirzepatide Metformin ER 1000mg BID Per PCP Review of therapy: Line of therapy: first Previous therapy: 01/22/24: craniotomy Reviewed dosage prescribed for appropriateness (based on indication, hepatic function,renal function, etc): no changes Dose assessment: 75mg/m2 * 2.31m2= 173.25mg (rounded to 180mg) Are appropriate supportive care medications prescribed? No, antiemetic to be re- ordered in beacon plan with updated instructions Are appropriate prophylactic medications prescribed? No, none needed Have baseline labs/tests been obtained? No, repeat cbcd and cmp ordered Has hepatitis B screening been completed? No, ordered Potential drug-drug drug-herbal, drug-food, drug-disease interactions: No The Hematology/Oncology Oral Chemotherapy Clinic will assess medication compliance at each patient encounter Assessment and Plan: [place] plan uploaded and sent to Dr. Stanton for signature MTM to follow up in 1 day for intro/med rec and 3 days to assess beacon plan signature and auth status Yes/no Date Action Taken [place] plan entered? yes 02/08/24 Consent completed? yes 02/07/24 Intro/med rec completed? Schedule baseline cbcd, cmp, and hep b panel Precert completed? Test claim completed? Financial assistance needed? Physician signature? Rx released? Education completed? Follow up: 1 and 3 days Julia Gomes, PharmD, BCOP Clinical Pharmacist, [facility] Oral Chemotherapy [facility] 02/08/2024, 8:30 AM Monitoring Parameters: Estimated CrCl Serum creatinine: 0.8 mg/dL 01/22/24 1535 Estimated creatinine clearance: 129 mL/min Hepatitis panel N/A - ordered test N/A - male Suggested lab monitoring Suggested labs: CBCd and CMP Treatment Parameters Parameters to be met: PLTS >= 100 Hgb >= 10 ANC >= 1.5 ALC >= 0.5 LFTs within normal range hold if >3 times upper limit normal Pertinent labs: Latest Reference Range & Units 01/22/24 15:35 WBC 4.00 - 10.80 K/uL 13.46 (H) RBC 4.50 - 5.25 M/uL 5.02 HGB 14.0 - 16.8 g/dL 14.8 HCT 40.0 - 48.4 % 42.9 MCV 82.0 - 99.5 fL 85.5 MCH 27.0 - 34.0 pg 29.5 MCHC 32.0 - 36.0 g/dL 34.5 RDW 11.5 - 15.5 % 13.5 PLT 140 - 400 K/uL 238 MPV 6.6 - 11.1 fL 10.5 CBC WITH WBC DIFFERENTIAL Rpt ! Absolute Neutrophils 1.80 - 7.70 K/uL 12.09 (H) Absolute Lymphocytes 1.00 - 4.80 K/ul 0.83 (L) Time Spent on Encounter: 16 - 20 minutes Encounter Group: Neuro-Oncology Encounter Interventions Item Category: Oral Chemotherapy Temozolomide Problem/Rationale: Indication: Needs additional medication therapy - Untreated condition, - Synergistic therapy [place] Plan Review: Initial Plan/upload Pharmacist Intervention(s): Drug Interaction Screen, Lab monitoring, Orders labs, and Referral review Magnitude of Intervention: Monitoring with direction (Level 1) documented in this encounter Plan of Treatment Upcoming Encounters Date Type Department Care Team (Late st Contact Info) Description 02/11/2024 1:15 PM EST Pharmacy Pharmacy Hematology Oncology [facility] [place] [address] [place] [address] [facility] Hem/Onc [facility] [place] [address] 02/12/2024 2:00 PM EST Pt Ed by Nurse Hematology/Oncology [place] [address] [place] [address] Sue Nurse Hem Onc [address] [place] [address] 02/13/2024 1:30 PM EST Pharmacy Pharmacy Hematology Oncology [place] [address] [place] [address] [facility] Hem/Onc [address] [place] [address] 05/19/2024 9:45 AM EST Office Visit Neurosurgery, [place] [address] [place], [place] [phone] Clinic, Brain Tumor Multidisciplinary [facility] [address] [place], [place] [phone] Health Maintenance Due Date Last Done Comments [...] this encounter Medical Devices Implanted Type Area Dog Catcher Device Identifier Shelf Expiration Date Model / Serial / Lot Cover Bur Hol Ti Lo 17 421.527 - [id number] Implanted:Qty: 1 on 01/22/2024 by Neo Lopez III, MD at [place] [facility] Left: Head SYNTHES MAXILLOFACIAL 421.527 / / Screw Ti Lo Pro Sd 4mm 400.834 - [id number] Implanted:Qty: 8 on 01/22/2024 by Neo Lopez III, MD at [place] [facility] Left: Head SYNTHES MAXILLOFACIAL 400.834 / / Cover Bur Hol 15mm 421.526 - [id number] Implanted:Qty: 1 on 01/22/2024 by Neo Lopez III, MD at [place] [facility] Left: Head SYNTHES MAXILLOFACIAL 421.526 / / documented as of this encounter Visit Diagnoses Diagnosis Glioblastoma multiforme (HCC)- Primary Malignant neoplasm of brain, unspecified site documented in this encounter Advance Directives Documents on File Type Date Recorded Patient Sales Relationship Manager Expl anation Power of Art Education Professor 01/24/2024 signed on 01/21/2024 POWER OF ROTARY SCREEN PRINTING MACHINE OPERATOR * Full Code (Latest Code Status [...] Discussed due to patient's condition Care Teams [employer] Hazmat Tanker Driver Relationship Specialty Start Date End Date Beverly Gonzales CRNP [address] [place] [address] PCP - General Nurse Practitioner 04/24/23 documented as of this encounter
--- OUTSIDE RECORDS SUMMARY | 2024-05-06 16:16 | External Medical Summary | Summary of Care ---
Author Name Unknown Organization [facility] Address [address] [place] [address] Phone [phone] Care Team Providers Care [employer] Promotional Sales Name Role Phone Beverly Gonzales Aurora OCHOA Primary Care Provider Reason for Visit * Reason Onset Date Comments Precert Future 02/07/2024 temodar Encounter Details Date Type Department Care Team (Late st Contact Info) Description 02/07/2024 Telephone Hematology/Oncology Treatment, [place] [address] [place] [address] Keon Stanton MD [address] [place] [address] Precert Future (temodar) Allergies No known active [...] Active Problems Problem Noted Date Diagnosed Date Body mass index (BMI) of 40.0 to [...] hypoxemia, suboptimal titration from CPAP to BIPAP [facility] Hypersomnia 12/18/2014 documented as of this encounter [...] 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 Sent order to [facility] for beacon uploading. Waiting for auth. Consent signed 02/07/24. Rad/onc consult 02/12/24. Education visit 02/12/24. Patient will need hep B labs. documented in this encounter Plan of Treatment Upcoming Encounters Date Type Department Care Team (Latest Contact Info) Description 02/08/2024 1:00 PM EST Pharmacy Pharmacy Hematology Oncology [address] [address] [facility] Hem/Onc [address] [place] [address] Glioblastoma multiforme (HCC)* 02/11/2024 1:15 PM EST Pharmacy Pharmacy Hematology Oncology [place] [address] [place] [address] [facility] Hem/Onc [address] [place] [address] 02/12/2024 2:00 PM EST Pt Ed by Nurse Hematology/Oncology [place] [address] [place] [phone] Nurse Sue Hem Onc [place] [address] [place] [address] 02/13/2024 1:30 PM EST Pharmacy Pharmacy [facility]ology [facility] [address] [place] [address] [facility] Hem/Onc [address] [place] [address] 05/19/2024 9:45 AM EST Office Visit Neurosurgery, [place] [address] [place] [address] Clinic, Brain Tumor Multidisciplinar [address] [place], [place] [phone] Scheduled Orders Name Type Priority Associated Diagnoses [...] encounter Medical Devices Implanted Type Area Machine Hoop Maker Helper Device Identifier Shelf Expiration Date Model / Serial / Lot Cover Bur Hol Ti Lo 17 421.527 - [id number] Implanted:Qty: 1 on 01/22/2024 by Neo Lopez III, MD at [place] [facility] Left: Head SYNTHES MAXILLOFACIAL 421.527 / / Screw Ti Lo Pro Sd 4mm 400.834 - [id number] Implanted:Qty: 8 on 01/22/2024 by Neo Lopez III, MD at OR [facility] Left: Head SYNTHES MAXILLOFACIAL 400.834 / / Cover Bur Hol 15mm 421.526 - [id number] Implanted:Qty: 1 on 01/22/2024 by Neo Lopez III, MD at OR [facility] Left: Head SYNTHES MAXILLOFACIAL 421.526 / / documented as of this encounter Visit Diagnoses Diagnosis Glioblastoma multiforme (HCC)- Primary Malignant neoplasm of brain, unspecified site Glioblastoma multiforme (HCC)- Primary Malignant neoplasm of brain, unspecified site documented in this encounter Advance Directives Documents on File Type Date Recorded Patient Payroll Clerk Expl anation Power of Office Automation Clerk 01/24/2024 signed on 01/21/2024 POWER OF A&P MECHANIC * Full Code (Latest Code Status on [...] Discussed due to patient's condition Care Teams [employer] Promotional Sales Relationship Specialty Start Date End Date Beverly Gonzales CRNP [address] [place] [address] PCP - General Nurse Practitioner 04/24/23 documented as of this encounter
--- OUTSIDE RECORDS SUMMARY | 2024-05-06 16:16 | External Medical Summary | Summary of Care ---
Author Name Unknown Organization [facility] Address [address] [facility] [place] [address] Phone [phone] Care Team Providers Care Eeg Technologist Name Role Phone Beverly Gonzales Primary Care Provider Reason for Visit * Reason Comments eRx-Medication Refill Encounter Details Date Type Department Care Team (Late st Contact Info) Description 02/10/2024 Refill Family Practice [facility] [address] [place] [address] Beverly Gonzales CRNP [address] [facility] [place] [address] Type 2 diabetes mellitus without complication, without [...] 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 Not on [...] encounter Miscellaneous Notes * Telephone Encounter - Nishi Reardon RP - 02/12/2024 6:46 AM EST Refused Prescriptions: Disp Refills Mounjaro 2.5 MG/0.5ML Subcutaneous Solutio*4 mL 0 Sig: INJECT 1SYRINGE SUBCUTANEOUSLY ONCE A WEEKRefused By: NISHI REARDON for Refusal: Too soon------ documented in this encounter Plan of Treatment Upcoming Encounters Date Type Department Care Team (Late st Contact Info) Description 02/12/2024 1:00 PM EST Laboratory Laboratory [place] [address] [place] [phone] [facility] [place] [address] 02/12/2024 1:15 PM EST Pharmacy Pharmacy Hematology Oncology [facility] [address] [place] [facility] [place] [address] [facility] Hem/Onc [address] [place] [facility] [place] [address] 02/12/2024 2:00 PM EST Pt Ed by Nurse Hematology/Oncology [place] [address] [place] [phone] Nurse Sue Hem Onc [address] [place] [address] 02/13/2024 1:30 PM EST Pharmacy Pharmacy Hematology Oncology [facility] [place] [address] [place] [address] [facility] Hem[facility]Onc [address] [place] [address] 05/06/2024 8:45 AM EST Imaging Radiology [facility] 1st Floor, [place] [address] [facility] [place] [address] 05/19/2024 9:45 AM EST Office Visit Neurosurgery, [place] [address] [place] [address] Clinic, Brain Tumor Multidisciplinary [address] [place] [address] Health Maintenance Due Date Last Done Comments [...] this encounter Medical Devices Implanted Type Area Bus Assistant Device Identifier Shelf Expiration Date Model / Serial / Lot Cover Bur Hol Ti Lo 17 421.527 - [id number] Implanted:Qty: 1 on 01/22/2024 by Neo Lopez III, MD at [place] [facility] Left: Head SYNTHES MAXILLOFACIAL 421.527 / / Screw Ti Lo Pro Sd 4mm 400.834 - [id number] Implanted:Qty: 8 on 01/22/2024 by Neo Lopez III, MD at [place] [facility] Left: Head SYNTHES MAXILLOFACIAL 400.834 / / Cover Bur [place] 15mm 421.526 - [id number] Implanted:Qty: 1 on 01/22/2024 by Neo Lopez III, MD at [place] [facility] Left: Head SYNTHES MAXILLOFACIAL 421.526 / / documented as of this encounter Visit Diagnoses Diagnosis Type 2 diabetes mellitus without complication, without long-term current use of insulin (HCC) documented in this encounter Advance Directives Documents on File Type Date Recorded Patient Ocean Forwarder Expl anation Power of Submarine Advisory Team Watch Officer 01/24/2024 signed on 01/21/2024 POWER OF MALWARE ANALYST * Full Code (Latest Code Status [...] Discussed due to patient's condition Care Teams Eeg Technologist Relationship Specialty Start Date End Date Beverly Gonzales CRNP [address] [place] [address] PCP - General Nurse Practitioner 04/24/23 documented as of this encounter
--- OUTSIDE RECORDS SUMMARY | 2024-05-06 16:16 | External Medical Summary | Summary of Care ---
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 [place] [facility] [place] [phone] Sue Nurse Hem Onc [facility] [address] [facility] [place], [place] [address] 02/13/2024 1:30 PM EST Pharmacy Pharmacy Hematology Oncology [address] [address] [facility] Hem/Onc [address] [place] [address] 05/19/2024 9:45 AM EST Office Visit Neurosurgery, [address] [address] Clinic, Brain Tumor Multidisciplinar [place] [address] Scheduled Orders Name Type Priority Associated Diagnoses Orde r Schedule HEPATITIS B SURFACE ANTIGEN Lab Routine Screening for viral disease Expected: 02/15/2024 (Approximate), Expires: 04/09/2024 HEPATITIS B CORE ANTIBODIES IGG AND IGM Lab Routine Screening for viral disease Expected: 02/15/2024 (Approximate), Expires: 04/09/2024 HEPATITIS B SURFACE ANTIBODY Lab Routine Screening for viral disease Expected: 02/15/2024 (Approximate), Expires: 04/09/2024 CBC WITH WBC DIFFERENTIAL Lab STAT Glioblastoma multiforme (HCC) Expected: 02/15/2024 (Approximate), Expires: 03/09/2024 COMPREHENSIVE METABOLIC PANEL Lab STAT Glioblastoma multiforme (HCC) Expected: 02/15/2024 (Approximate), Expires: 03/09/2024 Health Maintenance Due Date Last Done Comments [...] encounter Medical Devices Implanted Type Area Metal Cleaner Device Identifier Shelf Expiration Date Model / Serial / Lot Cover Bur Hol Ti Lo 17 421.527 - [id number] Implanted:Qty: 1 on 01/22/2024 by Neo Lopez III[place] [facility] [place]: Head SYNTHES MAXILLOFACIAL 421.527 / / Screw Ti Lo Pro Sd 4mm 400.834 - [id number] Implanted:Qty: 8 on 01/22/2024 by Neo Lopez III, [place] [facility] [place]: Head SYNTHES MAXILLOFACIAL 400.834 / / Cover Bur Hol 15mm 421.526 - [id number] Implanted:Qty: 1 on 01/22/2024 by Neo Lopez III, [place] [facility] [place]: Head SYNTHES MAXILLOFACIAL 421.526 / / documented as of this encounter Visit Diagnoses Diagnosis Glioblastoma multiforme (HCC)- Primary Malignant neoplasm of brain, unspecified site Screening for viral disease- Primary Special screening examination for unspecified viral disease Glioblastoma multiforme (HCC) Malignant neoplasm of brain, unspecified site documented in this encounter Advance Directives Documents on File Type Date Recorded Patient Patient Care Technician Instructor Expl anation Power of Siebel Crm Developer 01/24/2024 signed on 01/21/2024 POWER OF OVERLOCKER * Full Code (Latest Code Status on [...] Discussed due to patient's condition Care Teams Edger Operator Relationship Specialty Start Date End Date Beverly Gonzales CRNP [address] [place] [address] PCP - General Nurse Practitioner 04/24/23 documented as of this encounter
--- OUTSIDE RECORDS SUMMARY | 2024-05-06 16:16 | External Medical Summary | Summary of Care ---
Author Name Unknown Organization [facility] Address [address] [place] [address] Phone [phone] Care Team Providers Care Process Artist Name Role Phone Beverly Gonzales Aurora OCHOA Primary Care Provider Reason for Visit * Reason Onset Date Comments Forms Request 02/04/2024 Brain Tumor MDC / UNUM STD Form Encounter Details Date Type Department Care Team (Late st Contact Info) Description 02/04/2024 Telephone [facility] [address], [place] [id number] [facility] [address], [place] [id number] Forms Request (Brain Tumor MDC / UNUM STD ... Allergies No known active allergiesdocumented as of this encounter (statuses as of 02/11/2024) Medications BiPAP every night at bedtime . 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 Lopez. Forms given to Blanca for further processing. * Telephone Encounter - Blanca Starr OSA - 02/04/2024 1:46 PM EST Received initial FMLA form, from Gertrude. This has been scanned and placed in Gertrude's [employer] Navigatorfolder, for completion. When form is completed please return to patient navigator. ELY Asencio [place] [facility] [place] ([place] [id number]) * Telephone Encounter - Blanca Starr OSA - 02/04/2024 1:43 PM EST Received initial UNUM STD form, from Gertrude. This has been scanned and placed in Gertrude's [employer] Navigator folder, for completion. When form is completed please return to patient navigator. ELY Asencio [place] En[place] : [facility] [place]/Tumor ([place] [id number]) documented in this encounter Plan of Treatment Upcoming Encounters Date Type Department Care Team (Late st Contact Info) Description 02/12/2024 1:00 PM EST Laboratory Laboratory Scenery [place] Halima Rogers [address] [place] [phone] Sue Lab Scenery [address] [place] [id number] 02/12/2024 1:15 PM EST Pharmacy Pharmacy Hematology Oncology [address] [phone] [facility] Hem/Onc [address] [place] [address] 02/12/2024 2:00 PM EST Pt Ed by Nurse Hematology/Oncology Ayleen Rogers Effie [address] [place] [phone] Sue, Nurse Hem Onc Scenery [address] [place] [address] 02/13/2024 1:30 PM EST Pharmacy Pharmacy Hematology Oncology [facility] [address] [place] [address] [facility] Hem/Onc [address] [place] [address] 05/06/2024 8:45 AM EST Imaging Radiology [facility], [address] [address] 05/19/2024 9:45 AM EST Office Visit Neurosurgery, [place] [address] [place] [address] Clinic, Brain Tumor Multidisciplinary [address] [place] [address] Health Maintenance Due Date Last Done Comments [...] this encounter Medical Devices Implanted Type Area Surfboard Designer Device Identifier Shelf Expiration Date Model / Serial / Lot Cover Bur Hol Ti Lo 17 421.527 - [id number] Implanted:Qty: 1 on 01/22/2024 by Neo Lopez III, [place] [facility] [place]: Head SYNTHES MAXILLOFACIAL 421.527 / / Screw Ti Lo Pro Sd 4mm 400.834 - [id number] Implanted:Qty: 8 on 01/22/2024 by Neo Lopez III, [place] [facility] [place]: Head SYNTHES MAXILLOFACIAL 400.834 / / Cover Bur Hol 15mm 421.526 - [id number] Implanted:Qty: 1 on 01/22/2024 by Neo Lopez III, [place] [facility] [place]: Head SYNTHES MAXILLOFACIAL 421.526 / / documented as of this encounter Advance Directives Documents on File Type Date Recorded Patient Lawnmower Repair Mechanic Expl anation Power of Cpc 01/24/2024 signed on 01/21/2024 POWER OF STUDENT DEVELOPMENT SPECIALIST * Full Code (Latest Code Status on File) Date Activated Date Inactivated Comments 01/22/2024 3:03 PM 01/23/2024 7:55 PM This order reflects the patients wishes and were consensually agreed upon. Question Answer Comments Discussion of Advance Direct sia occurred with: Not Discussed due to patient's [...] Discussed due to patient's condition Care Teams Process Artist Relationship Specialty Start Date End Date Beverly Gonzales CRNP [address] [place] [address] PCP - General Nurse Practitioner 04/24/23 documented as of this encounter
--- OUTSIDE RECORDS SUMMARY | 2024-05-06 16:16 | External Medical Summary | Summary of Care ---
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 Hem/Onc [address] [place] [address] 02/12/2024 2:00 PM EST Pt Ed by Nurse Hematology/Oncology [facility] Sue Crowley [address] [place] [phone] Sue Nurse Hem Onc Scenery [address] [place] [address] 02/13/2024 1:30 PM EST Pharmacy Pharmacy Hematology Oncology [facility] [address] [place] [address] [facility] Hem/Onc [address] [place] [address] 05/06/2024 8:45 AM EST Imaging Radiology [address] [address] 05/19/2024 9:45 AM EST Office Visit Neurosurgery, [place] [address] [place] [address] Clinic, Brain Tumor Multidisciplinary [address] [place] [address] Health Maintenance Due Date Last Done Comments [...] this encounter Medical Devices Implanted Type Area Area Director Device Identifier Shelf Expiration Date Model / Serial / Lot Cover Bur Hol Ti Lo 17 421.527 - [id number] Implanted:Qty: 1 on 01/22/2024 by Neo Lopez III, MD at [place] [facility] [place] Left: Head SYNTHES MAXILLOFACIAL 421.527 / / Screw Ti Lo Pro Sd 4mm 400.834 - [id number] Implanted:Qty: 8 on 01/22/2024 by Neo Lopez III, MD at [place] [facility] [place] Left: Head SYNTHES MAXILLOFACIAL 400.834 / / Cover Bur Hol 15mm 421.526 - [id number] Implanted:Qty: 1 on 01/22/2024 by Neo Lopez III, MD at [place] [facility] [place] Left: Head SYNTHES MAXILLOFACIAL 421.526 / / documented as of this encounter Advance Directives Documents on File Type Date Recorded Patient Exchange Specialist Expl anation Power of Inside Upholsterer 01/24/2024 signed on 01/21/2024 POWER OF DOG CONTROL OFFICER * Full Code (Latest Code Status [...] Discussed due to patient's condition Care Teams Gastroenterology Nurse Practitioner Relationship Specialty Start Date End Date Beverly Gonzales CRNP [address] [place] [address] PCP - General Nurse Practitioner 04/24/23 documented as of this encounter
--- OUTSIDE RECORDS SUMMARY | 2024-05-06 16:16 | External Medical Summary | Summary of Care ---
Author Name Unknown Organization [facility] Address [address] [place] [address] Phone [phone] Care Team Providers Care Car Chaser Name Role Phone Beverly Gonzales Aurora OCHOA Primary Care Provider Reason for Visit * Reason Comments NEW PATIENT * Evaluate & Treat - Unlimited Visits (Within 10 days (routine)) - Authorized Specialty Diagnoses / Procedures Referred By Contcooper t Referred To Contact Hematology/Oncology / Hematology Oncology Diagnoses Glioblastoma of parietal lobe (HCC) Neo Lopez III, MD [address] [place] [address] Phone: tel: fax: Referral ID Status Reason Start Date Expiration Date Visits Requested Visits Authorized [id number] Authorized Specialty Services Required [phone] Encounter Details Date Type Department Care Team (Late st Contact Info) Description 02/07/2024 12:15 PM EST Office Visit Hematology/Oncology [employer] [address] [place] [phone] Keon Stanton MD [address] [facility] [place] [address] Glioblastoma multiforme (HCC)* Allergies No known active allergiesdocumented as of this encounter (statuses as of 02/07/2024) Medications BiPAP every night at bedtime . 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 Not on file documented as of this encounter Last Filed Vital Signs Vital Sign Reading Time Taken Comments Blood Pressure 162/90 02/07/2024 12:14 PM EST Pulse 76 02/07/2024 12:14 PM EST Temperature 37.4 C (99.3 F) 02/07/2024 12:[address] Respiratory Rate - - Oxygen Saturation 94% 02/07/2024 12:14 PM EST Inhaled Oxygen Concentration - - Weight 116.6 kg (257 lb) 02/07/2024 12:14 PM EST Height - - Body Mass Index 42.77 02/04/2024 9:36 AM EST documented in this [...] Progress Notes * Keon Stanton MD - 02/07/2024 12:15 PM EST Hematology/Oncology Outpatient Consult Note Sharron Rogers [address] [facility] [place] [address] YULY NICHOLAS MR # [id number] :1970 53-year-old male, REASON FOR CONSULTATION: Consultation for Yuly Nicholas requested by Dr. Lopez for evaluation and discussion of treatment options for GBM Date of consultation:02/07/2024 DIAGNOSIS: -glioblastoma multiforme, WHO grade 4. Involving the left parietal lobe. S/P subtotal resection. -NGS checkup and MGMT pending. -EGFR not amplified. CURRENT TREATMENT: Planning for combined chemotherapy with temozolomide and radiation treatment, he is having radiation treatment at [facility]. DIAGNOSTIC WORKUP: He presented to the ER on 01/16/2024 for 3 days' history of right leg numbness, could not walk properly when he showed up at work. Did not have any increasing nausea, vomiting or headache. CT scan of the head on 01/13/2024 showed left parietal lobe mass with surrounding vasogenic edema, he was then transferred at [facility]. Further workup as follows: Brain MRI on [...] chewing, intermittent smoking. Currently on Nicoderm patch. INTERVAL HISTORY: He has come the clinic for the initial evaluation, accompanied by his in the office. He is ambulating with the help of the walker Recently when he had a resection of the left parietal lobe mass, he recovered well from the right leg weakness, Decadron was stopped but then he started having increasing weakness could not walk, nowhe is on tapering dose of the Decadron with improvement of the weakness. No headache. No nausea no vomiting. No new GI symptoms, no new cardiac or pulmonary symptoms. Current weight around 257 lb. No previous thrombotic complications. No bleeding from any sites. REVIEW OF SYSTEMS: GENERAL: No change in weight, no weakness, no fatigue, no fever, sweats or chills. SKIN: No skin rash, no bruising. HEAD: No new headache, no dizziness. EYES: No recent change in the vision, no diplopia, EARS: No earache no tinnitus, NOSE: No epistaxis, No nasal discharge or stuffiness, MOUTH: No sores, no dysphagia, no hoarseness of voice, NECK: No lumps, No swelling in thyroid area. No stiffness. PULMONARY: No cough, No shortness of breath, no hemoptysis, no chest pain, No wheezing. CARDIOVASCULAR: No anginal chest pain, no PND, no orthopnea. No palpitation, no leg edema. No syncope. GASTROINTESTINAL: No abdominal pain, no nausea or vomiting. No diarrhea, No constipation. No blood in stool or black tarry stools. No abdominal distention. UROLOGIC: No burning urination. No hematuria. MUSCULOSKELETAL: No joint pain, No joint swelling, no muscle weakness. HEMATOLOGIC: No anemia, no bleeding disorder, No bruising. NEUROLOGIC: No seizures, slight weakness of the right leg causing some trouble in the ambulation, no speech difficulty, No memory disturbances. No tingling or numbness of the extremities. PSYCHIATRIC: No depression. No anxiety. No psychosis. Past Medical History: Diagnosis Date Hypertension Morbid obesity (HCC) Sleep apnea Sleep apnea, obstructive Past Surgical History: Procedure Laterality Date INFORMATION Left left hand surgery to remove nail from hand MICROSURGERY ADD-ON Left 01/22/2024 MICROSURGICAL SURGERY REQUIRING MICROSCOPE LISTED SEPARATELY performed by Neo Lopez III, MD at [place] [facility] REMOVE SUPRATENTORIAL BRAIN TUMOR Left 01/22/2024 CRANIOTOMY BONE FLAP EXCISION BRAIN TUMOR SUPRATENTORIAL performed by Neo Lopez III, [facility] OR [facility] Current Outpatient Medications Medication Sig Dispense Refill BiPAP every night at bedtime . Ventolin HFA 108 (90 Base) MCG/ACT Inhalation Aerosol Solution Inhale 2 Puffs by mouth every 4 hours as needed for Cough, Shortness of Breath or Wheezing. (Patient not taking: Reported on 01/22/2024)18 g 1 metFORMIN HCl ER 500 MG Oral Tablet Extended Release 24 Hour (Glucophage XR) Take 2 tablets by mouth twice daily 120 Tablet 2 Losartan Potassium-HCTZ 50-12.5 MG Oral Tablet (Hyzaar) take 1 AND 1/2 tablets by mouth every morning 135 Tablet 0 Famotidine 20 MG Oral Tablet (Pepcid) Take 1 Tablet by mouth twice per day (morning, before bedtime). (Patient not taking: Reported on 02/04/2024) 30 Tablet 1 Acetaminophen 325 MG Oral Tablet (Tylenol) Take 3 Tablets by mouth every 6 hours as needed for Fever >38C(100.5F) or mild pain. 30 Tablet 0 oxyCODONE HCl 5 MG Oral Tablet (Oxy IR) Take 1 Tablet by mouth every 4 hours as needed for moderatepain. (Patient not taking: Reported on 02/04/2024) 30 Tablet 0 Ondansetron 4 MG Oral Tablet Disintegrating (Zofran) Place 1 Tablet on tongue and let it dissolve every 6 hours as needed for Nausea or Vomiting. 20 Tablet 0 Docusate Sodium 100 MG Oral [...] taking: Reported on 02/04/2024) 30 Patch 1 Mounjaro 2.5 MG/0.5ML Subcutaneous Solution Auto-injector (Tirzepatide) INJECT 1 SYRINGE SUBCUTANEOUSLY ONCE A WEEK 2 mL 0 dexAMETHasone 2 MG Oral Tablet (Decadron) Take 2 Tablets by mouth 3 times a day for 2 days, THEN 2 Tablets 2 times a day with morning and evening meals for 2 days, THEN 1 Tablet 2 times a day with morning and evening meals for 2 days, THEN 1 Tablet daily with breakfast for 2 days. 26 Tablet 0 No current facility-administered medications for this visit. 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 Well built man, Patient is in no acute distress. HEENT:No icterus, no pallor, Throat and pharynx normal. Sinuses are non-tender. Neck: Supple and without lymphadenopathy or masses. No JVD. No Palpable supraclavicular lymph nodes. Lungs: Clear to auscultation. Bilateral symmetric air entry. No wheezing or rhonchi. Cardiovascular: Normal heart sounds, no murmurs.Regular rate and rhythm. Abdomen: soft, nontender, no hepatomegaly, no splenomegaly. Bowel sounds are normal. Neurological: No gross focal neurological deficit; walks with a normal gait. Extremities: No finger clubbing, No cyanosis. No leg edema. Skin:: No skin rash. SPINE: No spinal or paraspinal tenderness. LABS: Blood workup done on 01/22/2024: -BUN/Creat: 18/0.8, Calcium 7.7 -WBC 13,400, Hemoglobin and hematocrit -14.8/42.9, Platelet count of 968699. IMAGING: As described above. ASSESSMENT AND PLAN: 53-year-old male Oncology Diagnosis: -glioblastoma multiforme, WHO grade 4, involving the left parietal lobe, S/P subtotal resection on 01/22/2024 -currently on oral Decadron on tapering dose with improvement of the right-sided leg weakness. -NGS and MGMT result pending. Reviewed with him and his regarding the diagnostic workup, imaging studies, blood workup findings. Reviewed the comorbid conditions. Discussed with him regarding the role of combined chemotherapy with temozolomide radiation treatment that can be considered, discussed with him regarding treatment schedule , side effects will temozolomide and he is in agreement for that. Planning for temozolomide at 75 mg/m daily for the 1st 6 weeks with the radiation treatment. We talked about 2nd phase of temozolomide alone once he is done with the combined chemoradiation treatment He will have weekly blood workup Once we start him on treatment, will see him in about 3 weeks' time. Thanks for the consultation Dr. Keon Stanton Hem/Onc (This note was completed using the dictation program Fluency Direct. As such, there may be misspellings word substitutions, or other variations that should not change the essence of the clinical content of this encounter note. If there is need for further clarification, please direct questions to the provider listed above.) documented in this encounter Nursing Notes * Treva Arndt, MED ASSIST - 02/07/2024 12:18 PM EST Patient identifed by name and [...] it for you? ALREADY ACTIVE Filed Vitals: 02/07/24 1214 BP: 162/90 Pulse: 76 Temp: 37.4 C (99.3 F) TempSrc: Tympanic SpO2: 94% Weight: 116.6 kg (257 lb) Patient was instructed to not get up [...] st Contact Info) Description 02/08/2024 1:00 PM EST Pharmacy Pharmacy Hematology Oncology [facility], [address] [address] [facility] Hem/Onc [address] [place] [address] 02/12/2024 2:00 PM EST Pt Ed by Nurse Hematology/Oncology [place] Hal[place] [address] [facility] [place] [phone] uSe Nurse Hem Onc [facility] [address] [facility] [place] [address] 05/19/2024 9:45 AM EST Office Visit Neurosurgery, [address] [address] Clinic, Brain Tumor Multidisciplinary [facility] [place] [address] Health Maintenance Due Date Last Done Comments [...] this encounter Medical Devices Implanted Type Area Winding Rack Operator Device Identifier Shelf Expiration Date Model / Serial / Lot Cover Bur Hol Ti Lo 17 421.527 - [id number] Implanted:Qty: 1 on 01/22/2024 by Neo Lopez III, MD at [place] [facility] Left: Head SYNTHES MAXILLOFACIAL 421.527 / / Screw Ti Lo Pro Sd 4mm 400.834 - [id number] Implanted:Qty: 8 on 01/22/2024 by Neo Lopez III, MD at OR [facility] Left: Head SYNTHES MAXILLOFACIAL 400.834 / / Cover Bur Hol 15mm 421.526 - [id number] Implanted:Qty: 1 on 01/22/2024 by Neo Lopez III, MD at OR [facility] Left: Head SYNTHES MAXILLOFACIAL 421.526 / / documented as of this encounter Visit Diagnoses Diagnosis Glioblastoma multiforme (HCC)- Primary Malignant neoplasm of brain, unspecified site documented in this encounter Advance Directives Documents on File Type Date Recorded Patient Brine Tank Separator Operator Expl anation Power of Stripper Printed Circuit Boards 01/24/2024 signed on 01/21/2024 POWER OF DAY PORTER * Full Code (Latest Code Status on [...] Discussed due to patient's condition Care Teams Car Chaser Relationship Specialty Start Date End Date Beverly Gonzales CRNP [address] [place] [address] PCP - General Nurse Practitioner 04/24/23 documented as of this encounter"
--- OUTSIDE RECORDS SUMMARY | 2024-05-06 16:16 | External Medical Summary | Summary of Care ---
Author Name Unknown Organization [facility] Address [address] [place] [address] Phone [phone] Care Team Providers Care Hogshead Inspector Name Role Phone Beverly Gonzales DON Primary Care Provider Reason for Visit * Reason Onset Date Comments Forms Request 02/05/2024 Yoni / Ron Lynne adan of Care Encounter Details Date Type Department Care Team (Late st Contact Info) Description 02/05/2024 Telephone [facility] [address], [place] [phone] [facility] Neuro[facility] [address] [place] [address] Forms Request (Yoni Velasquez Plan of Care) Allergies No known active allergiesdocumented as of [...] hypoxemia, suboptimal titration from CPAP to BIPAP [facility] Hypersomnia 12/18/2014 documented as of [...] 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 Scanned into patients chart. * Telephone Encounter - Blanca Starr OSA - 02/05/2024 10:02 AM EST Received Ron Plan of Care from [facility] on 02.05.24. Placed in providers bin for signature. documented in this encounter Plan of Treatment Upcoming Encounters Date Type Department Care Team (Late st Contact Info) Description 02/11/2024 1:15 PM EST Pharmacy Pharmacy Hematology Oncology [facility], [place] [address] [place] [address] [facility] Hem/Onc [facility] [place] [address] 02/12/2024 2:00 PM EST Pt Ed by Nurse Hematology/Oncology Ayleen [facility] [place] [address] [place] [phone] Sue Nurse Hem Onc [address] [place] [address] 02/13/2024 1:30 PM EST Pharmacy Pharmacy Hematology Oncology [place] [address] [place] [address] [facility] Hem/Onc [facility] [place] [address] 05/06/2024 8:45 AM EST Imaging Radiology [address], [place] [address] [facility] [place] [address] 05/19/2024 9:45 AM EST Office Visit Neurosurgery, [place] [address] [place] [address] Clinic, Brain Tumor Multidisciplinary [address] [place] [address] Health Maintenance Due Date Last Done Comments [...] this encounter Medical Devices Implanted Type Area Superintendent [employer] Device Identifier Shelf Expiration Date Model / Serial / Lot Cover Bur Hol Ti Lo 17 421.527 - [id number] Implanted:Qty: 1 on 01/22/2024 by Neo Lopez III[place] [facility] [place] Head SYNTHES MAXILLOFACIAL 421.527 / / Screw Ti Lo Pro Sd 4mm 400.834 - [id number] Implanted:Qty: 8 on 01/22/2024 by Neo Lopez III, [place] [facility] [place] Head SYNTHES MAXILLOFACIAL 400.834 / / Cover Bur Hol 15mm 421.526 - [id number] Implanted:Qty: 1 on 01/22/2024 by Neo Lopez III, [place] [facility] [place] Head SYNTHES MAXILLOFACIAL 421.526 / / documented as of this encounter Advance Directives Documents on File Type Date Recorded Patient Measurement Coordinator Expl anation Power of Plywood Scarfer Tender 01/24/2024 signed on 01/21/2024 POWER OF PURIFICATION OPERATOR HELPER * Full Code (Latest Code Status [...] Discussed due to patient's condition Care Teams Hogshead Inspector Relationship Specialty Start Date End Date Beverly Gonzales CRNP [address] [place] [address] PCP - General Nurse Practitioner 04/24/23 documented as of this encounter
--- OUTSIDE RECORDS SUMMARY | 2024-05-06 16:16 | External Medical Summary | Summary of Care ---
Author Name Unknown Organization [facility] Address [address] [facility] [place] [address] Phone [phone] Care Team Providers Care Stock Raiser Name Role Phone Beverly Gonzales Primary Care Provider Reason for Visit * Reason Comments eRx-Medication Refill Encounter Details Date Type Department Care Team (Late st Contact Info) Description 02/02/2024 Refill Family Practice [facility] [address] [place] [address] Beverly Gonzales CRNP [address] [place] [address] Type 2 diabetes mellitus without complication, without long-term current use of insulin (HCC) Allergies No known active allergiesdocumented as of this encounter (statuses as of 02/06/2024) Medications BiPAP every night at bedtime . [...] mouth twice daily 120 Tablet 2 024 Active Losartan Potassium-HCTZ 50-12.5 MG Oral Tablet (Hyzaar) take 1 AND 1/2 tablets by mouth every morning 135 Tablet 024 Active Famotidine 20 MG Oral Tablet (Pepcid) [...] SUBCUTANEOUSLY ONCE A WEEK 2 mL 024 Active Mounjaro 2.5 MG/0.5ML Subcutaneous Solution Pen-injector (Tirzepatide)Evelin cations:Type 2 diabetes mellitus without complication, without long-term current use of insulin (HCC) INJECT 1 SYRINGE SUBCUTANEOUSLY ONCE A WEEK 2 mL 024 2023 Discontinued documented as of this encounter (statuses as of 02/06/2024) Active Problems Problem Noted Date Diagnosed Date Brain compression 01/17/2024 Cerebral edema 01/16/2024 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 Morbid obesity 12/18/2014 Overview: Per Obesity protocol #1 Hypersomnia 12/18/2014 documented as of this encounter (statuses as of 02/06/2024) Resolved Problems Problem Noted Date Diagnosed Date Resolved Date Upper respiratory tract infection 04/24/2023 01/30/2024 Elevated LFTs 05/04/2021 05/04/2022 Shortness of breath 05/04/2021 01/30/20 24 BMI 50.0-59.9, adult 12/25/2016 024 Overview: Per Obesity protocol #1 Snoring 12/18/2014 01/30/2024 NO KNOWN PROBLEMS 11/14/2014 12/18/2014 documented as of this encounter (statuses as of 02/06/2024) Immunizations Name Administration Dates Next Due TDAP (age 10 and older)(Boostrix) 11/14/2014 documented as of this encounter Social History Tobacco Use Types Packs/Day Years Used Date Smoking Tobacco: Former Cigarettes S tarted: 2019 Smokeless Tobacco: Current Snuff Alcohol Use Standard Drinks/Week Comments Yes 14 (1 standard drink = 0.6 oz [...] 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 Call Placed by [facility]. Thank you, Cheyanne Forrest [facility] Hat Blocking Machine Operator II [facility] ([facility]) 02/06/2024,3:10 PM * Telephone Encounter - Jorge Arriola [facility] - 02/04/2024 11:11 AM ESTSigned Prescriptions: Disp Refills Mounjaro 2.5 MG/0.5ML Subcutaneous Solutio*2 mL 0 Sig: INJECT 1 SYRINGE SUBCUTANEOUSLY ONCE A WEEKAuthorizing Provider: BEVERLY GONZALES User: JORGE NARVAEZ * Telephone Encounter - Joreg Arriola [facility] - 02/04/2024 11:10 AM EST 2nd attempt Provided 30 days supply with 0 refill(s). Per refill protocol patient should have Lipid panel on file within past year. Reviewed AMP report, Care Gaps/Health Maintenance, medications list, and for any routine labs typically ordered for this patient. Lab orders placed. Please contact patient to advise of labs ordered for blood draw. Fasting is not required. Advise toobtain labs before requesting the next refill. Thank You, Jorge Narvaez [facility] Clinical Pharmacist [facility] ([facility]) 02/04/2024, 11:10 AM * Telephone Encounter - Jorge Arriola [facility] - 02/04/2024 11:10 AM EST Pending Prescriptions: Disp Refills Mounjaro 2.5 MG/0.5ML Subcutaneous Soluti*4 mL 0 Sig: INJECT 1 SYRINGE SUBCUTANEOUSLY ONCE A WEEK Last Visit: 01/30/2024 (in office), Visit date not found (telemedicine) Next Visit: Visit date not found If no future appointments scheduled, and last appointment is greater than a year ago, please schedule patient for a follow-up appointment Last date the medication was ordered: 01/09/24 Pharmacy: [facility] [address] [place] [address] Is this request for a controlled substance? No Urine Drug Screen:No results found for this or any previous visit. Patient Phone Numbers Labs: Lab Results Component Value Date/Time CREAT 0.8 01/22/2024 03:35 PM POTASSIUM 3.8 01/22/2024 03:35 PM POTASSIUM 3.7 01/22/2024 12:59 PM LDL 102 05/04/2022 07:54 AM LDL 94 11/14/2014 10:39 AM ALT 70 (H) 05/04/2022 07:54 AM HGBA1C 5.8 (H) 01/30/2024 01:55 PM documented in this encounter Plan of Treatment Upcoming Encounters Date Type Department Care Team (Late st Contact Info) Description 02/07/2024 12:15 PM EST Office Visit Hematology/Oncology [place] [facility] [address] [place] [phone] Keon Stanton MD [address] [place] [address] 05/19/2024 9:45 AM EST [facility] [address] [place] [address] Clinic, Brain Tumor Multidisciplinary [address] [place] [address] Health Maintenance Due Date Last Done Comments [...] this encounter Medical Devices Implanted Type Area Party Host/Hostess Device Identifier Shelf Expiration Date Model / Serial / Lot Cover Bur Hol Ti Lo 17 421.527 - [id number] Implanted:Qty: 1 on 01/22/2024 by Neo Lopez III, MD at [place] [facility] [place] Left: Head SYNTHES MAXILLOFACIAL 421.527 / / Screw Ti Lo Pro Sd 4mm 400.834 - [id number] Implanted:Qty: 8 on 01/22/2024 by Neo Lopez III, MD at [place] [facility] [place] Left: Head SYNTHES MAXILLOFACIAL 400.834 / / Cover Bur Hol 15mm 421.526 - [id number] Implanted:Qty: 1 on 01/22/2024 by Neo Lopez III, MD at [place] [facility] [place] Left: Head SYNTHES MAXILLOFACIAL 421.526 / / documented as of this encounter Visit Diagnoses Diagnosis Type 2 diabetes mellitus without complication, without long-term current use of insulin (HCC) documented in this encounter Advance Directives Documents on File Type Date Recorded Patient Tax Manager Cpa Expl anation Power of Demographic Analyst 01/24/2024 signed on 01/21/2024 POWER OF BLOCKERS SKIVER * Full Code (Latest Code Status on [...] Discussed due to patient's condition Care Teams Stock Raiser Relationship Specialty Start Date End Date Beverly Gonzales CRNP [address] [place] [address] PCP - General Nurse Practitioner 04/24/23 documented as of this encounter
--- OUTSIDE RECORDS SUMMARY | 2024-05-06 16:16 | External Medical Summary | Summary of Care ---
Author Name Unknown Organization [facility] Address [address] [place] [address] Phone [phone] Care Team Providers Care Ship Rigger Name Role Phone Beverly Gonzales Aurora OCHOA Primary Care Provider Reason for Visit * Reason Onset Date Comments Precert Future 02/07/2024 temodar Encounter Details Date Type Department Care Team (Late st Contact Info) Description 02/07/2024 Telephone Hematology/Oncology Treatment, [place] [address] [place] [address] Keon Stanton MD [address] [place] [address] Precert Future (temodar) Allergies No known active [...] suboptimal titration from CPAP to BIPAP [facility] Hypersomnia 12/18/2014 documented as of this encounter [...] 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 [facility] [place] [facility] [place] beacon [place]. Waiting for auth. Consent signed 02/07/24. Rad/onc consult 02/12/24. Education visit 02/12/24. Patient will need hep B labs. documented in this encounter Plan of Treatment Upcoming Encounters Date Type Department Care Team (Late st Contact Info) Description 02/08/2024 1:00 PM EST Pharmacy Pharmacy Hematology Oncology [facility], [address] [address] [facility] Hem[facility]Onc [facility] [place] [address] 02/12/2024 2:00 PM EST Pt Ed by Nurse Hematology/Oncology [facility] [place] [address] [facility] [address] Sue Nurse Hem Onc [facility] [address] [facility] [place] [address] 05/19/2024 9:45 AM EST Office Visit Neurosurgery, [address] [address] Clinic, Brain Tumor Multidisciplinary [facility] [place] [address] Scheduled Orders Name Type Priority Associated Diagnoses [...] this encounter Medical Devices Implanted Type Area Resident Hall Director Device Identifier Shelf Expiration Date Model / Serial / Lot Cover Bur Hol Ti Lo 17 421.527 - [id number] Implanted:Qty: 1 on 01/22/2024 by Neo Lopez III, [place] [facility] [place]: Head SYNTHES MAXILLOFACIAL 421.527 / / Screw Ti Lo Pro Sd 4mm 400.834 - [id number] Implanted:Qty: 8 on 01/22/2024 by Neo Lopez III, [place] [facility] [place]: Head SYNTHES MAXILLOFACIAL 400.834 / / Cover Bur Hol 15mm 421.526 - [id number] Implanted:Qty: 1 on 01/22/2024 by Neo Lopez III, [place] [facility] [place]: Head SYNTHES MAXILLOFACIAL 421.526 / / documented as of this encounter Visit Diagnoses Diagnosis Glioblastoma multiforme (HCC)- Primary Malignant neoplasm of brain, unspecified site documented in this encounter Advance Directives Documents on File Type Date Recorded Patient Oyster Farmer Expl anation Power of Colorectal Surgeon 01/24/2024 signed on 01/21/2024 POWER OF HONEY EXTRACTOR * Full Code (Latest Code Status on [...] Discussed due to patient's condition Care Teams Ship Rigger Relationship Specialty Start Date End Date Beverly Gonzales CRNP [address] [place] [address] PCP - General Nurse Practitioner 04/24/23 documented as of this encounter
--- OUTSIDE RECORDS SUMMARY | 2024-05-06 16:17 | External Medical Summary | Summary of Care ---
Author Name Unknown Organization [facility] Address [address] [place] [address] Phone [phone] Care Team Providers Care Labor Trainer Name Role Phone Beverly Gonzales Aurora OCHOA Primary Care Provider Reason for Visit * Reason Onset Date Comments Forms Request 02/04/2024 Brain Tumor [facility] / [facility] STD Form Encounter Details Date Type Department Care Team (Late st Contact Info) Description 02/04/2024 Telephone [facility] [address] [place], [place] [phone] [facility] Neuro[facility] [address] [place], [place] [phone] Forms Request (Brain Tumor [facility] / [facility] ... Allergies No known active allergiesdocumented as of this encounter (statuses as of 02/04/2024) Medications BiPAP every night at bedtime . [...] as of this encounter (statuses as of 02/04/2024) Active Problems Problem Noted Date Diagnosed Date [...] hypoxemia, suboptimal titration from CPAP to BIPAP [facility] Morbid obesity 12/18/2014 Overview: Per Obesity protocol #1 Hypersomnia 12/18/2014 documented as of this encounter (statuses as of 02/04/2024) Resolved Problems Problem Noted Date Diagnosed Date Resolved Date Upper respiratory tract infection 04/24/2023 01/30/2024 Elevated LFTs 05/04/2021 05/04/2022 Shortness of breath 05/04/2021 01/30/20 24 BMI 50.0-59.9, adult 12/25/2016 024 Overview: Per Obesity protocol #1 Snoring 12/18/2014 01/30/2024 NO KNOWN PROBLEMS 11/14/2014 12/18/2014 documented as of this encounter (statuses as of 02/04/2024) Immunizations Name Administration Dates Next Due TDAP [...] 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 When form is completed please return to patient navigator. ELY Asencio Route Encounter : [facility] Neurosurgery Skull Base/Tumor (P [id number]) * Telephone Encounter - Blanca Starr OSA - 02/04/2024 1:43 PM EST Received initial [facility] STD form, from Gertrude. This has been scanned and placed in Gertrude's SPRAY DRIER OPERATOR HELPER Navigator folder, for completion. When form is completed please return to patient navigator. ELY Asencio Route Encounter : [facility] Neurosurgery Skull Base/Tumor (P [id number]) documented in this encounter Plan of Treatment Upcoming Encounters Date Type Department Care Team (Late st Contact Info) Description 02/07/2024 12:15 PM EST Office Visit Hematology/Oncology [facility] [address] [facility] [place] [phone] Keon Stanton MD [address] [place] [address] 05/19/2024 9:45 AM EST Office Visit Neurosurgery, [place] [address] [place] [address] Clinic, Brain Tumor Multidisciplinary [address] [place] [address] Health Maintenance Due Date Last Done Comments [...] this encounter Medical Devices Implanted Type Area Sr Community Manager Device Identifier Shelf Expiration Date Model / Serial / Lot Cover Bur Hol Ti Lo 17 421.527 - [id number] Implanted:Qty: 1 on 01/22/2024 by Neo Lopez III, MD [place] [facility] [place] Left: Head SYNTHES MAXILLOFACIAL 421.527 / / Screw Ti Lo Pro Sd 4mm 400.834 - [id number] Implanted:Qty: 8 on 01/22/2024 by Neo Lopez III, MD [place] [facility] [place] Left: Head SYNTHES MAXILLOFACIAL 400.834 / / Cover Bur Hol 15mm 421.526 - [id number] Implanted:Qty: 1 on 01/22/2024 by Neo Lopez III, MD [place] [facility] [place] Left: Head SYNTHES MAXILLOFACIAL 421.526 / / documented as of this encounter Advance Directives Documents on File Type Date Recorded Patient Adjunct Physical Education Instructor Expl anation Power of Metal Sorter 01/24/2024 signed on 01/21/2024 POWER OF CAST IRON DIPPER * Full Code (Latest Code Status on [...] Discussed due to patient's condition Care Teams Labor Trainer Relationship Specialty Start Date End Date Beverly Gonzales CRNP [address] [place] [address] PCP - General Nurse Practitioner 04/24/23 documented as of this encounter
--- OUTSIDE RECORDS SUMMARY | 2024-05-06 16:17 | External Medical Summary | Summary of Care ---
Author Name Unknown Organization [facility] Address [address] [place] [address] Phone [phone] Care Team Providers Care Ferry Captain Name Role Phone Beverly Gonzaleskay OCHOA Primary Care Provider Reason for Visit * Reason Onset Date Comments Advice 02/05/2024 Right extremitie s substantially worse today. Encounter Details Date Type Department Care Team (Late st Contact Info) Description 02/05/2024 Telephone [facility] [place] [address] [place] [address] Neo Lopez III, MD [address] [place] [address] Advice (Right extremities substantially wo... Allergies No known active allergiesdocumented as of this encounter (statuses as of 02/05/2024) Medications BiPAP every night at bedtime . [...] as of this encounter (statuses as of 02/05/2024) Active Problems Problem Noted Date Diagnosed Date [...] hypoxemia, suboptimal titration from CPAP to BIPAP [facility] Morbid obesity 12/18/2014 Overview: Per Obesity protocol #1 Hypersomnia 12/18/2014 documented as of this encounter (statuses as of 02/05/2024) Resolved Problems Problem Noted Date Diagnosed Date Resolved Date Upper respiratory tract infection 04/24/2023 01/30/2024 Elevated LFTs 05/04/2021 05/04/2022 Shortness of breath 05/04/2021 01/30/20 24 BMI 50.0-59.9, adult 12/25/201605/10/ 024 Overview: Per Obesity protocol #1 Snoring 12/18/2014 01/30/2024 NO KNOWN PROBLEMS 11/14/2014 12/18/2014 documented as of this encounter (statuses as of 02/05/2024) Immunizations Name Administration Dates Next Due TDAP [...] 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 He stated that the numbness in right arm and leg is substantially worse today than yesterday. Yesterday he could use his cane but today he has to use the walker, he is just dragging his right leg, heis not able to use it. He wondered if he overdid it yesterday or if he needs to be on the steroid again as he is not taking any at this time. He stated that yesterday his right arm was good but today there is tingling in it, it's not functioning like it did yesterday. I stated that I will send a message to the team for review. I also confirmed that if a prescription is placed it should go to [facility]. He thanked me. documented in this encounter Plan of Treatment Upcoming Encounters Date Type Department Care Team (Late st Contact Info) Description 02/07/2024 12:15 PM EST Office Visit Hematology/Oncology [facility] [address] [place] [address] Keon Stanton MD [address] [place] [address] 05/19/2024 9:45 AM EST Office Visit Neurosurgery, [place] [address] [place] [address] Clinic, Brain Tumor Multidisciplinary [address] [place] [address] Health Maintenance Due Date Last Done Comments [...] this encounter Medical Devices Implanted Type Area Tube Mounter Device Identifier Shelf Expiration Date Model / Serial / Lot Cover Bur Hol Ti Lo 17 421.527 - [id number] Implanted:Qty: 1 on 01/22/2024 by Neo Lopez III, [place] [facility] [place]: Head SYNTHES MAXILLOFACIAL 421.527 / / Screw Ti Lo Pro Sd 4mm 400.834 - [id number] Implanted:Qty: 8 on 01/22/2024 by Neo Lopez III, [place] [facility] [place]: Head SYNTHES MAXILLOFACIAL 400.834 / / Cover Bur Hol 15mm 421.526 - [id number] Implanted:Qty: 1 on 01/22/2024 by Neo Lopez III, [place] [facility] [place]: Head SYNTHES MAXILLOFACIAL 421.526 / / documented as of this encounter Advance Directives Documents on File Type Date Recorded Patient Coding Compliance Specialist Expl anation Power of Salesperson Floor Coverings 01/24/2024 signed on 01/21/2024 POWER OF HAND MOLDER AND CASTER * Full Code (Latest Code Status on [...] Discussed due to patient's condition Care Teams Ferry Captain Relationship Specialty Start Date End Date Beverly Gonzales CRNP [address] [place] [address] PCP - General Nurse Practitioner 04/24/23 documented as of this encounter
--- OUTSIDE RECORDS SUMMARY | 2024-05-06 16:17 | External Medical Summary | Summary of Care ---
Author Name Unknown Organization [facility] Address [address] [facility] [place] [address] Phone [phone] Care Team Providers Care Trauma Director Name Role Phone Beverly Gonzales Primary Care Provider Reason for Visit * Reason Onset Date Comments Hospital Follow-Up Patient prese nts in office today for a hospital follow-up visit. 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 Active [...] by mouth twice daily 120 Tablet 2 4 Active Losartan Potassium-HCTZ 50-12.5 MG Oral Tablet (Hyzaar) take 1 AND 1/2 tablets by mouth every morning 135 Tablet 4 Active Mounjaro 2.5 MG/0.5ML Subcutaneous Solution Pen-injector (Tirzepatide)Indica tions:Type 2 diabetes mellitus without complication, without long-term current use of insulin (HCC) INJECT 1 SYRINGE SUBCUTANEOUSLY ONCE A WEEK 2 mL 4 Active Famotidine 20 MG Oral Tablet (Pepcid) Take 1 Tablet by mouth twice per day (morning, before bedtime). 30 Tablet 1 4 Active Acetaminophen 325 MG Oral Tablet (Tylenol) Take 3 Tablets by mouth every 6 hours as needed for Fever >38C(100.5F) or mild pain. 30 Tablet 4 Active oxyCODONE HCl 5 MG Oral Tablet (Oxy IR) Take 1 Tablet by mouth every 4 hours as needed for moderate pain. 30 Tablet 4 Active Ondansetron 4 MG Oral Tablet Disintegrating (Zofran) Place 1 Tablet on tongue and let it dissolve every 6 hours as needed for Nausea or Vomiting. 20 Tablet 4 Active dexAMETHasone 2 MG Oral Tablet (Decadron) Take 2 Tablets by mouth 4 times a day for 3 days, THEN 2 Tablets 3 times a day for 1 day, THEN 2 Tablets 2 times a day for 1 day, THEN 1 Tablet 2 times a day for 1 day, THEN 1 Tablet daily for 1 day. 37 Tablet 4 01/30/20 24 Active Docusate Sodium 100 MG Oral Capsule (Colace) Take 1 Capsule by mouth twice per day (morning, before bedtime). 10 Capsule 4 Active Sennosides 8.6 MG Oral Tablet (Senokot) Take 2 Tablets by mouth in the morning. 10 Tablet 4 Active Nicotine 14 MG/24HR Transdermal Patch 24 Hour (Nicoderm CQ) Place 1 Patch over 24 hours topically on the skin in the morning. For 28 days. 28 Patch 4 Active Nicotine 7 MG/24HR Transdermal Patch 24 Hour (Nicoderm CQ) One 7 mg patch daily for 2 weeks; Remove old patch daily; and then stop. 30 Patch 1 4 Active Nicotine 14 MG/24HR Transdermal Patch 24 Hour (Nicoderm CQ) Place 1 Patch over 24 hours topically on the skin in the morning. For 28 days. 28 Patch 4 01/30/20 24 Discontinu ed(Refill) documented as of this encounter (statuses as of 01/30/2024) Active Problems Problem Noted Date Diagnosed Date Brain compression 01/17/2024 Malignant neoplasm of parietal lobe 01/17/2024 Brain mass 01/16/2024 Cerebral edema 01/16/2024 Neoplasm causing mass effect and brain compression on adjacent structures 01/16/2024 Body mass index (BMI) of 45.0 [...] hypertension 06/19/2018 Severe obstructive sleep apnea 09/14/2015 Overview: BIPAP 17/0101/11/15 Split PSG - AHI 94.5/hr, hypoxemia, suboptimal titration from CPAP to BIPAP [facility] Morbid obesity 12/18/2014 Overview: Per Obesity protocol #1 Hypersomnia 12/18/2014 documented as of this encounter (statuses as of 01/30/2024) Resolved Problems Problem Noted Date Diagnosed Date Resolved Date Upper respiratory tract infection 04/24/2023 01/30/2024 Elevated LFTs 05/04/2021 05/04/2022 Shortness of breath 05/04/2021 01/30/20 24 BMI 50.0-59.9, adult 12/25/201605/10/ 024 Overview: Per Obesity protocol #1 Snoring 12/18/2014 01/30/2024 NO KNOWN PROBLEMS 11/14/2014 12/18/2014 documented as of this encounter (statuses as of 01/30/2024) Immunizations Name Administration Dates Next Due TDAP [...] Answer Date Recorded PHQ-2 Score 0 06/13/2018 Utilities Answer Date Recorded Do you have trouble paying y our heating, water, or electric bill? (Adult - for ages 18 years and over) Not on file 09/11/2023 Is your family able to pay t he heat, water, or electric bill? (Household - for ages 0-17 years) Not on file 09/11/2023 Does your family have access to good internet? (Household - for ages 0-17 years) Not on file 09/11/2023 Social Connections Answer Date Recorded How often do you feel lonely or isolated from those around you? (Adult - for ages 18 years and over) Not on file 09/11/2023 Sex and Gender Information Value Date Recorded Sex Assigned at Male 06/13/2018 12:21 PM EDT Gender Identity Male 06/13/2018 12:21 PM EDT Sexual Orientation Straight 06/13/2018 12 :21 PM EDT Job Start Date Occupation Industry Not on file Not on file Not on file documented as of this encounter Last Filed Vital Signs Vital Sign Reading Time Taken Comments Blood Pressure 142/80 01/30/2024 12:47 PM EST Pulse 85 01/30/2024 12:47 PM EST Temperature - - Respiratory Rate 18 01/30/2024 12:47 PM EST Oxygen Saturation 98% 01/30/2024 12:47 PM EST Inhaled Oxygen Concentration - - Weight 117.5 kg (259 lb) 01/30/2024 12:47 PM EST Height 165.1 cm (5' 5") 01/30/2024 12:47 PM EST Body Mass Index 43.1 01/30/2024 12:47 PM EST documented in this encounter Functional Status Functional Status Response Date of Assess ment Are you deaf or do you have serious difficulty h earing? No 01/22/2024 Are you blind or do you have serious difficulty seeing, even when wearing glasses? No 01/22/2024 Do you have serious difficul ty walking or climbing stairs? (5 years old or older) No 01/22/2024 Do you have difficulty dress ing or bathing? (5 years old or older) No 01/22/2024 Because of a physical, menta l, or emotional condition, do you have difficulty doing errands alone such as visiting a doctor s office or shopping? (15 years old or older) No 01/22/20 Cognitive Status Response Date of Assessm ent Because of a physical, menta l, or emotional condition, do you have serious difficulty concentrating, remembering, or making decisions? (5 years old or older) No 01/22/2024 documented as of this encounter Progress Notes * Beverly Gonzales CRNP - 01/30/2024 12:59 PM EST Images from the original note were not included. SUBJECTIVE: Mariano Guillen is a 53 year old male. Chief Complaint Patient presents with Hospital Follow-Up Patient presents in office today for a hospital follow-up visit. Hospital Follow-Up Recent Admission: Patient was recently admitted to [facility] for Craniotomy removal of glioblastoma. The date of discharge was 01/23/2024. Discharge report received and reviewed. HPI: Mariano is here with his daughter today for follow up. He originally went to ED at [facility] for stroke like symptoms. Brain mass was found then transferred to [facility]. He underwent cr Started PT yesterday. He is using cane . From right knee down he is having paresthesia and tingling. Right leg is slightly weaker but he is bearing weight. He has numbness in right lower extremity and right arm. Diabetes on the steroids was controlled. 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 Acetaminophen 325 MG Oral Tablet (Tylenol) Take 3 Tablets by mouth every 6 hours as needed for Fever >38C(100.5F) or mild pain. 30 Tablet 0 oxyCODONE HCl 5 MG Oral Tablet (Oxy IR) Take 1 Tablet by mouth every 4 hours as needed for moderatepain. 30 Tablet 0 Ondansetron 4 MG Oral Tablet Disintegrating (Zofran) Place 1 Tablet on tongue and let it dissolve every 6 hours as needed for Nausea or Vomiting. 20 Tablet 0 dexAMETHasone 2 MG Oral Tablet (Decadron) Take 2 Tablets by mouth 4 times a day for 3 days, THEN 2 Tablets 3 times a day for 1 day, THEN 2 Tablets 2 times a day for 1 day, THEN 1 Tablet 2 times a dayfor 1 day, THEN 1 Tablet daily for 1 day. 37 Tablet 0 Ventolin HFA 108 (90 Base) [...] by mouth every morning 135 Tablet 0 Mounjaro 2.5 MG/0.5ML Subcutaneous Solution Pen-injector (Tirzepatide) INJECT 1 SYRINGE SUBCUTANEOUSLY ONCE A WEEK 2 mL 0 Nicotine 14 MG/24HR Transdermal Patch 24 Hour (Nicoderm CQ) Place 1 Patch over 24 hours topically on the skin in the morning. For 28 days. 28 Patch 0 Famotidine 20 MG Oral Tablet (Pepcid) Take 1 Tablet by mouth twice per day (morning, before bedtime). 30 Tablet 1 Docusate Sodium 100 MG Oral Capsule (Colace) Take 1 Capsule by mouth twice per day (morning, beforebedtime). 10 Capsule 0 Sennosides 8.6 MG Oral Tablet (Senokot) Take 2 Tablets by mouth in the morning. 10 Tablet 0 No current facility-administered medications for this visit. Current and discharge medications have been reconciled. Review of patient's allergies indicates: No Known Allergies OBJECTIVE: BP 142/80 | Pulse 85 | Resp 18 | Ht 1.651 m (5' 5") | Wt 117.5 kg (259 lb) | SpO2 98% | BMI 43.10 kg/m | BSA 2.32 m REVIEW OF SYSTEMS: PHYSICAL EXAM: BP 142/80 | Pulse 85 | Resp 18 | Ht 1.651 m (5' 5") | Wt 117.5 kg (259 lb) | SpO2 98% | BMI 43.10 kg/m | BSA 2.32 m Physical Exam HENT: Head: Normocephalic. Comments: [address] Incision is clean, dry and intact. Cardiovascular: Rate and Rhythm: Normal rate and regular rhythm. Pulmonary: Effort: Pulmonary effort is normal. Breath sounds: Normal breath sounds. Neurological: General: No focal deficit present. Mental Status: He is alert and oriented to person, place, and time. Psychiatric: Mood and Affect: Mood normal. Behavior: Behavior normal. Thought Content: Thought content normal. Judgment: Judgment normal. ASSESSMENT: 1. Hospital discharge follow-up - DISCH MED RECON CUR MED LIS 2. Malignant neoplasm of parietal lobe (HCC) Reviewed pathology results He is waiting on plan of care from specialist. Follow up scheduled for 02/03 3. Neoplasm causing mass effect and brain compression on adjacent structures (HCC) 4. Type 2 diabetes mellitus without complication, without long-term current use of insulin (HCC) Due for A1C On moujaro and losing weight - HEMOGLOBIN A1C; Future 5. Severe obstructive sleep apnea HE IS USING CPAP again 6. Tobacco use disorder He is working on cessation Gave 7 mg nicotine patch 7. Essential hypertension STABLE 8. Brain compression (HCC) SECONDARY TO MASS I spent a total of 40-54 minutes (exact time 40 mins) on the date of service in preparation, delivery, and documentation of the care provided to Mariano Guillen excluding any time spent in the performance of separately billed services or time spent by another provider/QHP. DON Flores documented in this encounter Nursing Notes * Rachelle Garcia MED ASSIST - 01/30/2024 12:43 PM EST The patient has been properly identified by confirmation of name and date of . Chief Complaint Patient presents with Hospital Follow-Up Patient presents in office today for a hospital follow-up visit. documented in this encounter Plan of Treatment Upcoming Encounters Date Type Department Care Team (Late st Contact Info) Description 02/04/2024 9:45 AM EST Office Visit Neurosurgery, [place] [address] [place] [address] Clinic, Brain Tumor Multidisciplinary [address] [place] [address] Pending Results Name Type Priority Associated Diagnoses Date /Time HEMOGLOBIN A1C Lab Routine Type 2 diabetes mellitus without complication, without long-term current use of insulin (HCC) 01/30/2024 1:55 PM EST Scheduled Orders Name Type Priority Associated Diagnoses Orde r Schedule HEMOGLOBIN A1C Lab Routine Type 2 diabetes mellitus without complication, without long-term current use of insulin (HCC) Expected: 01/30/2024 (Approximate), Expires: 01/29/2025 Health Maintenance Due Date Last Done Comments [...] 2) 2022 Albumin/Creatinine Ratio 05/04/2023 05/04/2022, 03/27 HbA1c 08/28/2023 02/26/2023, 10/25, 08/05/2022, Additional history exists COVID-19 Vaccine (1 - 2023- season) 2023 Influenza Vaccine (FLU shot) (#1) 2023 DTap/Tdap Vaccines (2 - Td or Tdap) [...] this encounter Medical Devices Implanted Type Area Talent Manager Device Identifier Shelf Expiration Date Model / Serial / Lot Cover Bur Hol Ti Lo 17 421.527 - [id number] Implanted:Qty: 1 on 01/22/2024 by Neo Lopez III, MD at [place] [facility] Left: Head SYNTHES MAXILLOFACIAL 421.527 / / Screw Ti Lo Pro Sd 4mm 400.834 - [id number] Implanted:Qty: 8 on 01/22/2024 by Neo Lopez III, MD at [place] [facility] Left: Head SYNTHES MAXILLOFACIAL 400.834 / / Cover Bur Hol 15mm 421.526 - [id number] Implanted:Qty: 1 on 01/22/2024 by Neo Lopez III, MD at [place] [facility] Left: Head SYNTHES MAXILLOFACIAL 421.526 / / documented as of this encounter Visit Diagnoses Diagnosis Hospital discharge follow-up- Primary Other follow-up examination Malignant neoplasm of parietal lobe (HCC) Malignant neoplasm of parietal lobe of brain Neoplasm causing mass effect and brain compression on adjacent structures (HCC) Type 2 diabetes mellitus without complication, without long-term current use of insulin (HCC) Severe obstructive sleep apnea Obstructive sleep apnea (adult) (pediatric) Tobacco use disorder Essential hypertension Unspecified essential hypertension Brain compression (HCC) Compression of brain documented in this encounter Advance Directives Documents on File Type Date Recorded Patient Company Controller Expl anation Power of Abstracter 01/24/2024 signed on 01/21/2024 POWER OF FLOUR MIXER HELPER * Full Code (Latest Code Status [...] Discussed due to patient's condition Care Teams Trauma Director Relationship Specialty Start Date End Date Beverly Gonzales CRNP [address] [place] [address] PCP - General Nurse Practitioner 04/24/23 documented as of this encounter
--- OUTSIDE RECORDS SUMMARY | 2024-05-06 16:17 | External Medical Summary | Summary of Care ---
Author Name Unknown Organization [facility] Address [address] [place] [address] Phone [phone] Care Team Providers Care Movie Projectionist Name Role Phone Beverly Gonzaleskay OCHOA Primary Care Provider Reason for Visit * Reason Onset Date Comments Advice 02/05/2024 Right extremitie s substantially worse today. Encounter Details Date Type Department Care Team (Late st Contact Info) Description 02/05/2024 Telephone [facility] [place] [address] [place] [address] Neo Lopez III, MD [address] [place] [address] Advice (Right extremities substantially wo... 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 He explains that his right side upper and lower extremity symptoms have been notably worse today in comparison to yesterday. He has difficulty with functioning on the right arm and he has been using a walker today for ambulation. He stopped the steroids about 6days ago and feels that symptoms progressed since then. I have sent a new prescription of dexamethasone to his pharmacy in [place]. He follows up with Dr. Stanton for Oncology on 02/07/2024 in 2 days. He knows to contact us with other changes or questions. Zita Vallejo IV, PA-C * Telephone Encounter - Dixon Gertrudebernardino Stewart LPN - 02/05/2024 8:31 AM EST Received [...] prescription is placed it should go to [facility] in [facility]. He thanked me. documented in this encounter Plan of Treatment Upcoming Encounters Date Type Department Care Team (Late st Contact Info) Description 02/07/2024 12:15 PM EST Office Visit Hematology/Oncology [facility] [address] [facility] [place] [phone] Keon Stanton MD [address] [facility] [address] [facility] [place] [address] 05/19/2024 9:45 AM EST Office Visit Neurosurgery, [place] [address] [place] [address] Clinic, Brain Tumor Multidisciplinary [address] [place] [address] Health Maintenance Due Date Last Done Comments [...] or Tdap) 11/14/2024 11/14/2014 GFR 01/21/2025 01/22/2024, 1005/2023, 11/18/2022, Additional history exists Lipid Panel 05/04/2027 05/04/2022, 11/14/2014 HPV (Gardasil) Vaccine Aged Out No lo nger eligible based on patient's age to complete this topic MENINGOCOCCAL (MENACTRA/MENVEO) Aged Out No longer eligible based on patient's age to complete this topic documented as of this encounter Medical Devices Implanted Type Area Stonecutter Apprentice Hand Device Identifier Shelf Expiration Date Model / Serial / Lot Cover Bur Hol Ti Lo 17 421.527 - [id number] Implanted:Qty: 1 on 01/22/2024 by Neo Lopez III, [place] [facility] Left: Head SYNTHES MAXILLOFACIAL 421.527 / / Screw Ti Lo Pro Sd 4mm 400.834 - [id number] Implanted:Qty: 8 on 01/22/2024 by Neo Lopez III, [place] [facility] Left: Head SYNTHES MAXILLOFACIAL 400.834 / / Cover Bur Hol 15mm 421.526 - [id number] Implanted:Qty: 1 on 01/22/2024 by Neo Lopez III, MD at [place] [facility] Left: Head SYNTHES MAXILLOFACIAL 421.526 / / documented as of this encounter Visit Diagnoses Diagnosis Glioblastoma of parietal lobe (HCC)- Primary Malignant neoplasm of parietal lobe of brain documented in this encounter Advance Directives Documents on File Type Date Recorded Patient Supervisor [employer] Expl anation Power of Seamer 01/24/2024 signed on 01/21/2024 POWER OF DIRECTOR CREDIT RISK * Full Code (Latest Code Status on [...] Discussed due to patient's condition Care Teams Movie Projectionist Relationship Specialty Start Date End Date Beverly Gonzales CRNP [address] [place] [address] PCP - General Nurse Practitioner 04/24/23 documented as of this encounter
--- OUTSIDE RECORDS SUMMARY | 2024-05-06 16:17 | External Medical Summary | Summary of Care ---
Author Name Unknown Organization [facility] Address [address] [place] [address] Phone [phone] Care Team Providers Care Vehicle Maintenance Technician Name Role Phone Beverly Gonzaleskay OCHOA Primary Care Provider Reason for Visit * Reason Onset Date Comments Imaging Records Request 02/04/2024 Encounter Details Date Type Department Care Team (Late st Contact Info) Description 02/04/2024 Telephone Radiology Film [place] [address] [place] [address] Support, Imaging Radiology [address] [place] [address] Imaging Records Request Allergies No known active allergiesdocumented [...] hypoxemia, suboptimal titration from CPAP to BIPAP [facility] Morbid obesity 12/18/2014 Overview: Per Obesity protocol [...] encounter Miscellaneous Notes * Telephone Encounter - Marianna Tim, System Support - 02/04/2024 11:31 AM EST Suzanna Fuller requesting MRI brain 01/22/24, CT head 01/18/24. MRI brain/3d&ct cap 01/16/24 images be pushed through PACS. [place] Authorization to Release on file. Images pushed to [place] [facility] PACS external connection. documented in this encounter Plan of Treatment Upcoming Encounters Date Type Department Care Team (Late st Contact Info) Description 02/07/2024 12:15 PM EST Office Visit Hematology/Oncology [facility] [place] [address] [facility] [place] [phone] Keon Stanton MD [address] [place] [address] 05/19/2024 9:45 AM EST Office Visit Neurosurgery, [place] [address] [place] [address] Clinic, Brain Tumor Multidisciplinary [address] [place] [address] Health Maintenance Due Date Last Done Comments [...] this encounter Medical Devices Implanted Type Area Wireless Consultant Device Identifier Shelf Expiration Date Model / Serial / Lot Cover Bur Hol Ti Lo 17 421.527 - [id number] Implanted:Qty: 1 on 01/22/2024 by Neo Lopez III, MD [place] [facility] [place]: Head SYNTHES MAXILLOFACIAL 421.527 / / Screw Ti Lo Pro Sd 4mm 400.834 - [id number] Implanted:Qty: 8 on 01/22/2024 by Neo Lopez III, MD at [place] [facility] Left: Head SYNTHES MAXILLOFACIAL 400.834 / / Cover Bur Hol 15mm 421.526 - [id number] Implanted:Qty: 1 on 01/22/2024 by Neo Lopez III, MD at [place] [facility] Left: Head SYNTHES MAXILLOFACIAL 421.526 / / documented as of this encounter Advance Directives Documents on File Type Date Recorded Patient Slip Cover Operator Expl anation Power of Professional Advisor 01/24/2024 signed on 01/21/2024 POWER OF DIGITAL ASSOCIATE * Full Code (Latest Code Status on [...] Discussed due to patient's condition Care Teams Vehicle Maintenance Technician Relationship Specialty Start Date End Date Beverly Gonzales CRNP [address] [place] [address] PCP - General Nurse Practitioner 04/24/23 documented as of this encounter
--- OUTSIDE RECORDS SUMMARY | 2024-05-06 16:17 | External Medical Summary | Summary of Care ---
Author Name Unknown Organization [facility] Address [address] [facility] [place] [address] Phone [phone] Care Team Providers Care Telecommunications Administrator Name Role Phone Beverly Cabezas Primary Care Provider Reason for Visit * Reason Comments eRx-Medication Refill Encounter Details Date Type Department Care Team (Late st Contact Info) Description 02/02/2024 Refill Family Practice [facility] [address] [place] [address] Beverly Cabezas CRNP [address] [facility] [place] [address] Type 2 diabetes mellitus without complication, without [...] hypoxemia, suboptimal titration from CPAP to BIPAP [facility] Morbid obesity 12/18/2014 Overview: Per [...] encounter Miscellaneous Notes * Telephone Encounter - Jorge Arriola [facility] - 02/04/2024 11:11 AM ESTSigned Prescriptions: Disp Refills Mounjaro 2.5 MG/0.5ML Subcutaneous Solutio*2 mL 0 Sig: INJECT 1 SYRINGE SUBCUTANEOUSLY ONCE A WEEKAuthorizing Provider: BEVERLY CABEZAS User: JORGE JOSHUA * Telephone Encounter - Jorge Arriola [facility] - 02/04/2024 11:10 AM EST 2nd attempt [...] requesting the next refill. Thank You, Jorge Joshua [facility] Clinical Pharmacist [facility] ([facility]) 02/04/2024, 11:10 AM * Telephone Encounter - Jorge Arriola [facility] - 02/04/2024 11:10 AM EST Pending Prescriptions: [...] was ordered: 01/09/24 Pharmacy: [facility] [address] [place] [address] Is this request for a controlled substance? [...] 02/07/2024 12:15 PM EST Office Visit Hematology/Oncology [facility] [address] [place] [address] Keon Stanton MD [address] [place] [address] 05/19/2024 9:45 AM EST Office Visit Neurosurgery, [place] [address] [place] [address] Clinic, Brain Tumor Multidisciplinary [address] [place] [address] Health Maintenance Due Date Last Done Comments [...] this encounter Medical Devices Implanted Type Area Gunsmith Apprentice Device Identifier Shelf Expiration Date Model / Serial / Lot Cover Bur Hol Ti Lo 17 421.527 - [id number] Implanted:Qty: 1 on 01/22/2024 by Neo Lopez III, MD [place] [facility] Left: Head SYNTHES MAXILLOFACIAL 421.527 / / Screw Ti Lo Pro Sd 4mm 400.834 - [id number] Implanted:Qty: 8 on 01/22/2024 by Neo Lopez III, MD at [place] [facility] Left: Head SYNTHES MAXILLOFACIAL 400.834 / / Cover Bur Hol 15mm 421.526 - [id number] Implanted:Qty: 1 on 01/22/2024 by Neo Lopez III, MD at [place] [facility] Left: Head SYNTHES MAXILLOFACIAL 421.526 / / documented as of this encounter Visit Diagnoses Diagnosis Type 2 diabetes mellitus without complication, without long-term current use of insulin (HCC) documented in this encounter Advance Directives Documents on File Type Date Recorded Patient Hospital Medicine Director Expl anation Power of Tariff Supervisor 01/24/2024 signed on 01/21/2024 POWER OF PLANNING ADVISOR * Full Code (Latest Code Status on [...] due to patient's condition Care Teams Telecommunications Administrator Relationship Specialty Start Date End Date Beverly Cabezas CRNP [address] [place] [address] PCP - General Nurse Practitioner 04/24/23 documented as of this encounter
--- OUTSIDE RECORDS SUMMARY | 2024-05-06 16:17 | External Medical Summary | Summary of Care ---
Author Name Unknown Organization [facility] Address [address] [facility] [place] [address] Phone [phone] Care Team Providers Care Metal Roofer Name Role Phone Beverly Gonzales Aurora OHCOA Primary Care Provider Reason for Visit * Reason Comments Outpatient Testing Encounter Details Date Type Department Care Team (Late st Contact Info) Description 01/30/2024 1:50 PM EST Laboratory Laboratory, [facility] [address] [facility] [address] [facility] [address] [place] [address] Type 2 diabetes mellitus without complication, without long-term current use of insulin ([facility]) Allergies No known active allergiesdocumented as of this encounter (statuses as of 01/30/2024) Medications Medication Sig Dispensed Refills Start Date End Date Status BiPAP every night at bedtime . Active Ventolin HFA 108 (90 Base) MCG/ACT Inhalation Aerosol Solution Inhale 2 Puffs by mouth every 4 hours as needed for Cough, Shortness of Breath or Wheezing. 18 g 1 04/24/2023 Active Additional Information Patient not taking.Reported on 01/22/2024 metFORMIN HCl ER 500 MG Oral Tablet Extended Release 24 Hour (Glucophage XR) Take 2 tablets by mouth twice daily 120 Tablet 2 11/20/2023 Active Losartan Potassium-HCTZ 50-12.5 MG Oral Tablet (Hyzaar) take 1 AND 1/2 tablets by mouth every morning 135 Tablet 12/24/2023 Active Mounjaro 2.5 MG/0.5ML Subcutaneous Solution Pen-injector (Tirzepatide)Indica tions:Type 2 diabetes mellitus without complication, without long-term current use of insulin (HCC) INJECT 1 SYRINGE SUBCUTANEOUSLY ONCE A WEEK 2 mL 01/09/2024 Active Famotidine 20 MG Oral Tablet (Pepcid) Take 1 Tablet by mouth twice per day (morning, before bedtime). 30 Tablet 1 01/18/2024 Active Acetaminophen 325 MG Oral Tablet (Tylenol) Take 3 Tablets by mouth every 6 hours as needed for Fever >38C(100.5F) or mild pain. 30 Tablet 01/23/2024 Active oxyCODONE HCl 5 MG Oral Tablet (Oxy IR) Take 1 Tablet by mouth every 4 hours as needed for moderate pain. 30 Tablet 01/23/2024 Active Ondansetron 4 MG Oral Tablet Disintegrating (Zofran) Place 1 Tablet on tongue and let it dissolve every 6 hours as needed for Nausea or Vomiting. 20 Tablet 01/23/2024 Active dexAMETHasone 2 MG Oral Tablet (Decadron) Take 2 Tablets by mouth 4 times a day for 3 days, THEN 2 Tablets 3 times a day for 1 day, THEN 2 Tablets 2 times a day for 1 day, THEN 1 Tablet 2 times a day for 1 day, THEN 1 Tablet daily for 1 day. 37 Tablet 01/23/2024 Active Docusate Sodium 100 MG Oral Capsule (Colace) Take 1 Capsule by mouth twice per day (morning, before bedtime). 10 Capsule 01/23/2024 Active Sennosides 8.6 MG Oral Tablet (Senokot) Take 2 Tablets by mouth in the morning. 10 Tablet 01/24/2024 Active Nicotine 14 MG/24HR Transdermal Patch 24 Hour (Nicoderm CQ) Place 1 Patch over 24 hours topically on the skin in the morning. For 28 days. 28 Patch 01/30/2024 Active Nicotine 7 MG/24HR Transdermal Patch 24 Hour (Nicoderm CQ) One 7 mg patch daily for 2 weeks; Remove old patch daily; and then stop. 30 Patch 1 01/30/2024 Active documented as of this encounter (statuses [...] from CPAP to BIPAP [facility] Morbid obesity 12/18/2014 Overview: Per [...] documented as of this encounter Functional Status Functional Status Response [...] No 01/22/2024 documented as of this encounter Plan of Treatment Upcoming Encounters Date Type Department Care Team (Late st Contact Info) Description 02/04/2024 9:45 AM EST Office Visit Neurosurgery, [place] [address] [place] [address] Clinic, Brain Tumor [facility] [address] [place] [address] Pending Results Name Type Priority Associated Diagnoses Date /Time HEMOGLOBIN A1C Lab Routine Type 2 diabetes mellitus without complication, without long-term current use of insulin (HCC) 01/30/2024 1:55 PM EST Health Maintenance Due Date Last [...] 10/25, 08/05/2022, Additional history exists COVID-19 Vaccine ( - season) 2023 Influenza [...] this encounter Medical Devices Implanted Type Area Medical Oncologist Device Identifier Shelf Expiration Date Model / Serial / Lot Cover Bur Hol Ti Lo 17 421.527 - [id number] Implanted:Qty: 1 on 01/22/2024 by Neo Lopez III, MD at [place] [facility] Left: Head SYNTHES MAXILLOFACIAL 421.527 / / Screw Ti Lo Pro Sd 4mm 400.834 - [id number] Implanted:Qty: 8 on 01/22/2024 by Neo Lopez III, MD at OR [facility] Left: Head SYNTHES MAXILLOFACIAL 400.834 / / Cover Bur Hol 15mm 421.526 - [id number] Implanted:Qty: 1 on 01/22/2024 by Neo Lopez III, MD at OR [facility] Left: Head SYNTHES MAXILLOFACIAL 421.526 / / documented as of this encounter Visit Diagnoses Diagnosis Type 2 diabetes mellitus without complication, without long-term current use of insulin (HCC) documented in this encounter Advance Directives Documents on File Type Date Recorded Patient Disability Insurance Hearing Officer Expl anation Power of Claims Vice President 01/24/2024 signed on 01/21/2024 POWER OF MORTAR MAN * Full Code (Latest Code Status on [...] Discussed due to patient's condition Care Teams Metal Roofer Relationship Specialty Start Date End Date Beverly Gonzales CRNP [address] [place] [address] PCP - General Nurse Practitioner 04/24/23 documented as of this encounter
--- OUTSIDE RECORDS SUMMARY | 2024-05-06 16:17 | External Medical Summary | Summary of Care ---
Author Name Unknown Organization [facility] Address [address] [place] [address] Phone [phone] Care Team Providers Care Service Supervisor Name Role Phone Beverly Gonzales DON Primary Care Provider Reason for Visit * Reason Onset Date Comments Forms Request 02/05/2024 Yoni / Ron Lynne adan of Care Encounter Details Date Type Department Care Team (Late st Contact Info) Description 02/05/2024 Telephone [facility] [address] [place], [place] [id number] [facility] [address] [place] [address] Forms Request (Yoni Velasquez Plan of Care) [...] to BIPAP [facility] Morbid obesity 12/18/2014 Overview: Per Obesity protocol [...] 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 Placed in providers bin for signature. documented in this encounter Plan of Treatment Upcoming Encounters Date Type Department Care Team (Late st Contact Info) Description 02/07/2024 12:15 PM EST Office [facility] [address] [place] [address] Keon Stanton MD [address] [place], [place] [address] 05/19/2024 9:45 AM EST Office Visit Neurosurgery, [place] [address] [place] [address] Clinic, Brain Tumor Multidisciplinary [address] [place] [address] Health Maintenance Due Date Last Done Comments [...] this encounter Medical Devices Implanted Type Area Combination Welder Apprentice Device Identifier Shelf Expiration Date Model / Serial / Lot Cover Bur Hol Ti Lo 17 421.527 - [id number] Implanted:Qty: 1 on 01/22/2024 by Neo Lopez III, MD at [place] [facility] [place] Left: Head SYNTHES MAXILLOFACIAL 421.527 / / Screw Ti Lo Pro Sd 4mm 400.834 - [id number] Implanted:Qty: 8 on 01/22/2024 by Neo Lopez III, MD at [place] [facility] [place] Left: Head SYNTHES MAXILLOFACIAL 400.834 / / Cover Bur Hol 15mm 421.526 - [id number] Implanted:Qty: 1 on 01/22/2024 by Neo Lopez III, MD at [place] [facility] [place] Left: Head SYNTHES MAXILLOFACIAL 421.526 / / documented as of this encounter Advance Directives Documents on File Type Date Recorded Patient Mohs Surgeon/General Dermatologist Expl anation Power of Animal Killer 01/24/2024 signed on 01/21/2024 POWER OF GARBAGE DEPOT WORKER * Full Code (Latest Code Status on [...] Discussed due to patient's condition Care Teams Service Supervisor Relationship Specialty Start Date End Date Beverly Gonzales CRNP [address] [place] [address] PCP - General Nurse Practitioner 04/24/23 documented as of this encounter
--- OUTSIDE RECORDS SUMMARY | 2024-05-06 16:17 | External Medical Summary | Summary of Care ---
Author Name Unknown Organization [facility] Address [address] [facility] [place] [address] Phone [phone] Care Team Providers Care Installation Helper Name Role Phone Beverly Gonzales Aurora OCHOA Primary Care Provider Reason for Visit * Reason Onset Date Comments Advice 01/24/2024 Re: CPAP Encounter Details Date Type Department Care Team (Late st Contact Info) Description 01/24/2024 Telephone [facility] Disorders [facility] [address] [place] [address] Claudia Kee DO [address] [place] [phone] Advice (Re: CPAP) Allergies No known active allergiesdocumented as of this encounter (statuses as of 01/25/2024) Medications Medication Sig Dispensed Refills Start Date [...] ONCE A WEEK 2 mL 01/09/2024 Active Nicotine 14 MG/24HR Transdermal Patch 24 Hour (Nicoderm CQ) Place 1 Patch over 24 hours topically on the skin in the morning. For 28 days. 28 Patch 01/18/2024 Active Famotidine 20 MG Oral Tablet (Pepcid) [...] in the morning. 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 04/24/2023 Fatty liver 05/04/2022 Type 2 diabetes mellitus wit hout complication, without long-term current use of insulin 05/04/2021 Shortness of breath 05/04/2021 Alcohol ingestion, 1-4 drinks per day 05/04/2021 Tobacco use disorder 05/04/2021 Essential hypertension 06/19/2018 Severe obstructive sleep apnea 09/14/2015 Overview: BIPAP 17/0101/11/15 Split PSG - AHI 94.5/hr, hypoxemia, suboptimal titration from CPAP to BIPAP [facility] Morbid obesity 12/18/2014 Overview: Per Obesity protocol #1 Snoring 12/18/2014 Hypersomnia 12/18/2014 documented as of this encounter (statuses as of 01/25/2024) Resolved Problems Problem Noted Date Diagnosed Date Resolved Date Elevated LFTs 05/04/2021 05/04/2022 BMI 50.0-59.9, adult 12/25/201605/10/ 024 Overview: Per Obesity protocol #1 NO KNOWN PROBLEMS 11/14/2014 12/18/2014 documented as of this encounter (statuses as of 01/25/2024) Immunizations Name Administration Dates Next Due TDAP [...] No 01/22/2024 documented as of this encounter Miscellaneous Notes * Telephone Encounter - Alysia Emmanuel LPN - 01/25/2024 9:37 AM EDT MyG sent. * Telephone Encounter - Teena Ortega RN - 01/24/2024 1:56 PM EDT Pt was DC'd yesterday from [facility] after neurosurgery for a Glioblastoma. Pt is having trouble with wearing his CPAP due to the incisions. He was only able to tolerate it being on his head for about 4 hours last night. Pt would like to know if there is anything Dr Kee or the nurses would recommend to decrease the discomfort while wearing the cpap documented in this encounter Plan of Treatment Upcoming Encounters Date Type Department Care Team (Late st Contact Info) Description 01/30/2024 1:00 PM EST Office Visit [facility] [address] [place] [address] Beverly Gonzales CRNP [address] [place] [address] 02/04/2024 9:45 AM EST Office Visit Neurosurgery, [place] [address] [place] [address] Clinic, Brain Tumor Multidisciplinary [address] [place] [address] Health Maintenance Due Date Last Done Comments [...] this encounter Medical Devices Implanted Type Area Consulting Services Associate Device Identifier Shelf Expiration Date Model / Serial / Lot Cover Bur Hol Ti Lo 17 421.527 - [id number] Implanted:Qty: 1 on 01/22/2024 by Neo Lopez III, MD at [place] [facility] Left: Head SYNTHES MAXILLOFACIAL 421.527 / / Screw Ti Lo Pro Sd 4mm 400.834 - [id number] Implanted:Qty: 8 on 01/22/2024 by Neo Lopez III, MD at [place] [facility] Left: Head SYNTHES MAXILLOFACIAL 400.834 / / Cover Bur Hol 15mm 421.526 - [id number] Implanted:Qty: 1 on 01/22/2024 by Neo Lopez III, MD at [place] [facility] Left: Head SYNTHES MAXILLOFACIAL 421.526 / / documented as of this encounter Visit Diagnoses Diagnosis Obstructive sleep apnea- Primary Obstructive sleep apnea (adult) (pediatric) documented in this encounter Advance Directives Documents on File Type Date Recorded Patient Hspt Tutor Expl anation Power of Broke Handler 01/24/2024 signed on 01/21/2024 POWER OF HEALTH WORKER * Full Code (Latest Code Status [...] Discussed due to patient's condition Care Teams Installation Helper Relationship Specialty Start Date End Date Beverly Gonzales CRNP [address] [place] [address] PCP - General Nurse Practitioner 04/24/23 documented as of this encounter
--- OUTSIDE RECORDS SUMMARY | 2024-05-06 16:17 | External Medical Summary | Summary of Care ---
Author Name Unknown Organization [facility] Address [address] [place] [address] Phone [phone] Care Team Providers Care Arts Manager Name Role Phone Beverly Gonzales Aurora OCHOA Primary Care Provider Reason for Visit * Reason Onset Date Comments Follow Up 01/24/2024 Encounter Details Date Type Department Care Team (Late st Contact Info) Description 01/24/2024 10:30 AM EDT Scheduled Telephone Neurosurgery, [place] [address] [place], [place] [id number] Cesario, Nurse Follow Up Phone Call Neurosurg [address] [place] [address] Arrived Allergies No known active allergiesdocumented as of this encounter (statuses as of 01/24/2024) Medications Medication Sig Dispensed Refills Start Date [...] as of this encounter (statuses as of 01/24/2024) Active Problems Problem Noted Date Diagnosed Date [...] to BIPAP [facility] Morbid obesity 12/18/2014 Overview: Per Obesity protocol #1 Snoring 12/18/2014 Hypersomnia 12/18/2014 documented as of this encounter (statuses as of 01/24/2024) Resolved Problems Problem Noted Date Diagnosed Date Resolved Date Elevated LFTs 05/04/2021 05/04/2022 BMI 50.0-59.9, adult 12/25/201605/10/ 024 Overview: Per Obesity protocol #1 NO KNOWN PROBLEMS 11/14/2014 12/18/2014 documented as of this encounter (statuses as of 01/24/2024) Immunizations Name Administration Dates Next Due TDAP [...] encounter Miscellaneous Notes * Telephone Encounter - Katherine Farias RN - 01/24/2024 10:52 AM EDT LVM for patient to see how he is doing. Asked him to call back if he needs anything. Reminded of post op appt. documented in this encounter Plan of Treatment Upcoming Encounters Date Type Department Care Team (Late st Contact Info) Description 01/30/2024 1:00 PM EST Office Visit Family [address] [place] [address] Beverly Gonzales, CONSULTING APPLICATION ENGINEER [address] [place] [address] 02/04/2024 9:45 AM EST Office Visit Neurosurgery, [place] [address] [place] [address] Clinic, Brain Tumor Multidisciplinary [address] [place] [address] Health Maintenance Due Date Last Done Comments [...] Additional history exists COVID-19 Vaccine ( - 2023- season) 2023 Influenza Vaccine (FLU [...] this encounter Medical Devices Implanted Type Area Casting Tester Device Identifier Shelf Expiration Date Model / Serial / Lot Cover Bur Hol Ti Lo 17 421.527 - [id number] Implanted:Qty: 1 on 01/22/2024 by Neo Lopez III, MD at OR [facility] [place] Left: Head SYNTHES MAXILLOFACIAL 421.527 / / Screw Ti Lo Pro Sd 4mm 400.834 - [id number] Implanted:Qty: 8 on 01/22/2024 by Neo Lopez III, MD at OR [facility] [place] Left: Head SYNTHES MAXILLOFACIAL 400.834 / / Cover Bur Hol 15mm 421.526 - [id number] Implanted:Qty: 1 on 01/22/2024 by Neo Lopez III, MD at OR [facility] Left: Head SYNTHES MAXILLOFACIAL 421.526 / / documented as of this encounter Advance Directives Documents on File Type Date Recorded Patient General Manager [employer] Expl anation Power of Construction Analyst 01/24/2024 signed on 01/21/2024 POWER OF PRECIPITATOR * Full Code (Latest Code Status on [...] Discussed due to patient's condition Care Teams Arts Manager Relationship Specialty Start Date End Date Beverly Gonzales CRNP [address] [place] [address] PCP - General Nurse Practitioner 04/24/23 documented as of this encounter
--- OUTSIDE RECORDS SUMMARY | 2024-05-06 16:17 | External Medical Summary | Summary of Care ---
Author Name Unknown Organization [facility] Address [address] [facility] [place] [address] Phone [phone] Care Team Providers Care Ecological Economist Name Role Phone Beverly Gonzales Aurora OCHOA Primary Care Provider Reason for Visit * Reason Comments Outpatient Testing Encounter Details Date Type Department Care Team (Late st Contact Info) Description 01/30/2024 1:50 PM EST Laboratory Laboratory, [facility] [address] [facility] [place] [address] [facility] [address] [place] [address] Type 2 diabetes mellitus without complication, without long-term current use of insulin ([facility]) Allergies No known active allergiesdocumented as of [...] from CPAP to BIPAP [facility] Morbid obesity 12/18/2014 Overview: Per Obesity [...] 02/04/2024 9:45 AM EST Office Visit Neurosurgery, [place] [address] [place] [address] Clinic, Brain Tumor [facility] [address] [place] [address] Pending Results Name Type Priority Associated Diagnoses [...] this encounter Medical Devices Implanted Type Area Senior Caregiver Device Identifier Shelf Expiration Date Model / Serial / Lot Cover Bur Hol Ti Lo 17 421.527 - [id number] Implanted:Qty: 1 on 01/22/2024 by Neo Lopez III, MD at [place] [facility] [place] Left: Head SYNTHES MAXILLOFACIAL 421.527 / / Screw Ti Lo Pro Sd 4mm 400.834 - [id number] Implanted:Qty: 8 on 01/22/2024 by Neo Lopez III, MD at [place] [facility] [place] Left: Head SYNTHES MAXILLOFACIAL 400.834 / / Cover Bur Hol 15mm 421.526 - [id number] Implanted:Qty: 1 on 01/22/2024 by Neo Lopez III, MD at OR [facility] [place] Left: Head SYNTHES MAXILLOFACIAL 421.526 / / documented as of this encounter Visit Diagnoses Diagnosis Type 2 diabetes mellitus without complication, without long-term current use of insulin (HCC) documented in this encounter Advance Directives Documents on File Type Date Recorded Patient Management Liaison Expl anation Power of Supervisor Properties 01/24/2024 signed on 01/21/2024 POWER OF LINING PRINTER * Full Code (Latest Code Status on [...] Discussed due to patient's condition Care Teams Ecological Economist Relationship Specialty Start Date End Date Beverly Gonzales CRNP [address] [place] [address] PCP - General Nurse Practitioner 04/24/23 documented as of this encounter
--- OUTSIDE RECORDS SUMMARY | 2024-05-06 16:17 | External Medical Summary | Summary of Care ---
Author Name Unknown Organization [facility] Address [address] [facility] [place] [address] Phone [phone] Care Team Providers Care Nozzle Tender Name Role Phone Beverly Gonzales Primary Care Provider Reason for Visit * Reason Onset Date Comments Hospital Follow[place] [facility] [place] Encounter Details Date Type Department Care Team (Late st Contact Info) Description 01/24/2024 Telephone Family Practice [facility] [address] [place] [address] Beverly Gonzales CRNP [address] [place] [address] [place] [place] Allergies No known active allergiesdocumented as of [...] hypoxemia, suboptimal titration from CPAP to BIPAP [facility] Morbid obesity 12/18/2014 Overview: Per [...] encounter Miscellaneous Notes * Telephone Encounter - Teena Ortega RN - 01/24/2024 1:39 PM EDT Transitions of Care Note Reason for Referral:Recent Admission Phone visit for follow up: BUSHRA [place] [facility]: then Discharged to: home, Date: 01/22 Diagnosis driving hospitalization: Malignant neoplasm of parietal lobe (HCC) Source/Contact: Patient SUBJECTIVE Consent: Verbal consent for review of hospital discharge: Yes REVIEW OF SYSTEMS Patient/Other Reports: Current patient/caregiver problems or concerns: having pain wearing cpap. Message sent to sleep medicine looking for creative ways to wear this right now CV: Denies problems Pulmonary: Denies problems Chills/Sweats/Fever:Denies chills/sweats Denies fever Appetite:Denies problems such as nausea, vomiting, burning, decreased appetite Current diet: as tolerated Bowel: denies problems Bladder: denies problems Wound (If applicable): wound is clean, dry and intact Pain:Current pain management effective: Yes Sleep:Denies problems FUNCTIONAL STATUS: ADL'S: Needs Assistance With:N/A as pt is independent IADL'S: Needs Assistance With:Grocery Shopping, Cooking food, and Routine Housework Cognitive and Mental Health: denies problems, alert and oriented x 3, and able to communicate, understand instructions, process information. MEDICATION RECONCILIATION Medications: Discharge med list reviewed with patient or caregiver New medication(s) filled since hospitalization- tylenol, decadron, zofran, oxycodone, senna, famotidine, nicoderm patch Reports all medications taken as prescribed. Denies side effects OBJECTIVE ASSESSMENT Medication Risk Assessment: No risks identified Did patient fail outpatient treatment? No Discharge instructions available for review? Yes PLAN Symptom Monitoring Interventions:Member/caregiver education - signs and symptoms to contact PrimaryCare (DO NOT DELETE-Three lacey symptoms patient is to report to PCP) 1.pain not controlled with medications at home 2. Confusion, weakness, loss of bowel/bladder 3. fever Chief TechnologistRn Observation of Care interventions/Action Plan: Medication reconciliation and 5 - 7 day follow-up with PCP in place - Date: 01/29 Educated on role of BUSHRA completed with patient/caregiver. Educated patient/caregiver on patient right to have input on BUSHRA plan of care. Verification of Home Health/DME if indicated: NO Identified Care Gaps: Yes Care Gaps closed this call: Appointment made or confirmed, Medication adherence, and Transition of Care follow-up communication Re-evaluation of Plan of Care and progress towards goals achievement: Patient education this visit: Verbal, as above Plan to follow-up as previously scheduled, instructed to call Primary Care Provider with change in symptoms or as needed before next follow-up, discharge needs met, verbalizes understanding and agrees with plan. Teena Ortega, RN documented in this encounter Plan of Treatment Upcoming Encounters Date Type Department Care Team (Late st Contact Info) Description 01/30/2024 1:00 PM EST Office Visit Family [facility] [address] [place] [address] Beverly Gonzales CRNP [address] [place] [address] 02/04/2024 9:45 AM EST Office Visit Neurosurgery, [place] [address] [place] [address] Clinic, Brain Tumor Multidisciplinary [address], [place] [id number] Health Maintenance Due Date Last Done Comments [...] this encounter Medical Devices Implanted Type Area Girls Tennis Coach Device Identifier Shelf Expiration Date Model / Serial / Lot Cover Bur Hol Ti Lo 17 421.527 - [id number] Implanted:Qty: 1 on 01/22/2024 by Neo oLpez III, [place] [facility] [place]: Head SYNTHES MAXILLOFACIAL 421.527 / / Screw Ti Lo Pro Sd 4mm 400.834 - [id number] Implanted:Qty: 8 on 01/22/2024 by Neo Lopez III, [place] [facility] [place]: Head SYNTHES MAXILLOFACIAL 400.834 / / Cover Bur Hol 15mm 421.526 - [id number] Implanted:Qty: 1 on 01/22/2024 by Neo Lopez III, [place] [facility] [place]: Head SYNTHES MAXILLOFACIAL 421.526 / / documented as of this encounter Advance Directives Documents on File Type Date Recorded Patient Project Controls Specialist Expl anation Power of Campus Rep 01/24/2024 signed on 01/21/2024 POWER OF ELECTRONICS MAINTENANCE TECHNICIAN * Full Code (Latest Code Status [...] Discussed due to patient's condition Care Teams Nozzle Tender Relationship Specialty Start Date End Date Beverly Gonzales CRNP [address] [place] [address] PCP - General Nurse Practitioner 04/24/23 documented as of this encounter
--- OUTSIDE RECORDS SUMMARY | 2024-05-06 16:17 | External Medical Summary ---
Author Name Unknown Address Unknown Organization K01:[facility] [place] [address] [place] [address] Laboratory Report Ordering Provider Test Date Status JOCELYNN CHERRY 01/30/2024 13:55:04 Final Observation Date Value Abnormality Reference (Units ) Status HbA1C 01/30/2024 13:55:04 5.8 Above high normal 4. 0-5.6 (%) Final The use of HbA1c to monitor glycemic status is based on normal hemoglobin and HbA composition. This test should not be used in patients with abnormal hemoglobin that affects the half life of the red blood cell or the in vivo glycation rates. Glucose, estimated average 01/30/2024 13:55:04 120 <126 (mg/dL) Final Performing Location [facility] [place] [facility] [address] [facility] [address]
--- OUTSIDE RECORDS SUMMARY | 2024-05-06 16:17 | External Medical Summary | Summary of Care ---
Author Name Unknown Organization [facility] Address [address] [place] [address] Phone [phone] Care Team Providers Care Polls Or Surveys Interviewer Name Role Phone Beverly Gonzaleslle DON Primary Care Provider Reason for Visit * Reason Onset Date Comments Order Request 01/29/2024 Encounter Details Date Type Department Care Team (Late st Contact Info) Description 01/29/2024 Telephone [facility], [place] [address] [place] [address] Services, [facility] [address] [place] [address] Order Request Allergies No known active allergiesdocumented as [...] every morning 135 Tablet 12/24/19 24 Active Mounjaro 2.5 MG/0.5ML Subcutaneous Solution Pen-injector (Tirzepatide)Evelin cations:Type 2 diabetes mellitus without complication, without long-term current use of insulin (HCC) INJECT 1 SYRINGE SUBCUTANEOUSLY ONCE A WEEK 2 mL 01/09/20 Active Famotidine 20 MG Oral Tablet (Pepcid) [...] 20 Tablet 4 3:38 PM EDT 01/23/20 Active Docusate Sodium 100 MG Oral Capsule (Colace) Take 1 Capsule by mouth twice per day (morning, before bedtime). 10 Capsule 4 3:38 PM EDT 01/23/20 Active Additional Information Patient not taking.Reported on 02/04/2024 Sennosides 8.6 MG Oral Tablet (Senokot) Take 2 Tablets by mouth in the morning. 10 Tablet 4 3:38 PM EDT 01/24/20 Active Additional Information Patient not taking.Reported on 02/04/2024 dexAMETHasone 2 MG Oral Tablet (Decadron) Take 2 Tablets by mouth 4 times a day for 3 days, THEN 2 Tablets 3 times a day for 1 day, THEN 2 Tablets 2 times a day for 1 day, THEN 1 Tablet 2 times a day for 1 day, THEN 1 Tablet daily for 1 day. 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 * Telephone Encounter - Radha Richmond OSA - 01/29/2024 2:16 PM EST Neuroscience Phone Call Form- Requested Information from caller: Who is calling facility name: [facility] Provider patient is established with: [facility] What is the concern or issue they are having: needs physical therapy orders sent to them Any additional details to add: no Phone number for nurse to call back: [phone] Are forms needed? fax: [phone] Medication Refill? no Verify Pharmacy information is correct. documented in this encounter Plan of Treatment Upcoming Encounters Date Type Department Care Team (Late st Contact Info) Description 02/07/2024 12:15 PM EST Office Visit Hematology/Oncology [place] [facility] [address] [facility] [place] [address] Keon Stanton MD [address] [facility] [place] [address] 05/19/2024 9:45 AM EST Office Visit Neurosurgery, [place] [address] [place] [address] Clinic, Brain Tumor Multidisciplinary [address], [place] [phone] Health Maintenance Due Date Last Done Comments [...] this encounter Medical Devices Implanted Type Area Tariff Compiler Device Identifier Shelf Expiration Date Model / Serial / Lot Cover Bur Hol Ti Lo 17 421.527 - [id number] Implanted:Qty: 1 on 01/22/2024 by Neo Lopez III, MD at OR [facility] [place] Left: Head SYNTHES MAXILLOFACIAL 421.527 / / Screw Ti Lo Pro Sd 4mm 400.834 - [id number] Implanted:Qty: 8 on 01/22/2024 by Neo Lopez III, MD at OR [facility] [facility] Left: Head SYNTHES MAXILLOFACIAL 400.834 / / Cover Bur Hol 15mm 421.526 - [id number] Implanted:Qty: 1 on 01/22/2024 by Neo Lopez III, MD at OR [facility] Left: Head SYNTHES MAXILLOFACIAL 421.526 / / documented as of this encounter Advance Directives Documents on File Type Date Recorded Patient Animal Geneticist Expl anation Power of Adobe Developer 01/24/2024 signed on 01/21/2024 POWER OF AIDS SOCIAL WORKER * Full Code (Latest Code Status [...] Discussed due to patient's condition Care Teams Polls Or Surveys Interviewer Relationship Specialty Start Date End Date Beverly Gonzales CRNP [address] [place] [address] PCP - General Nurse Practitioner 04/24/23 documented as of this encounter
--- OUTSIDE RECORDS SUMMARY | 2024-05-06 16:17 | External Medical Summary | Summary of Care ---
Author Name Unknown Organization [facility] Address [address] [place] [address] Phone [phone] Care Team Providers Care Green Energy Marketing Analyst Name Role Phone Beverly Gonzales Aurora OCHOA Primary Care Provider Reason for Visit * Reason Onset Date Comments Referral 02/04/2024 Rad Onc and Hem Onc referrals Encounter Details Date Type Department Care Team (Late st Contact Info) Description 02/04/2024 Telephone Neurology, [place] [address] [place] [address] Clinic, Brain Tumor Multidisciplinary [address] [place] [address] Referral (Rad Onc and Hem Onc referrals) Allergies No known active allergiesdocumented as of [...] hypoxemia, suboptimal titration from CPAP to BIPAP [facility] Morbid obesity 12/18/2014 Overview: Per Obesity protocol [...] Telephone Encounter - Gertrude Metcalf LPN - 02/04/2024 3:19 PM EST Called [facility] no answer, left message requesting fax number to fax referralfor patient. Received return call from Kristina at [facility] and she stated that I didn't need to fax anything because she now has access to the chart and they have everything they need. He is scheduled for a consult on 02/12/24 at 9 am. I thanked her for the information. Also noted that patient is scheduled on 02/07/24 at 12:15 pm with Hematology Oncology for consult. documented in this encounter Plan of Treatment Upcoming Encounters Date Type Department Care Team (Late st Contact Info) Description 02/07/2024 12:15 PM EST Office Visit Hematology/Oncology [facility] [place] [address] [place] [address] Keon Stanton MD [address] [place] [address] 05/19/2024 9:45 AM EST Office Visit Neurosurgery, [place] [address] [place] [address] Clinic, Brain Tumor Multidisciplinary [address] [place] [address] Health Maintenance Due Date Last Done Comments [...] this encounter Medical Devices Implanted Type Area Associate Scientist Device Identifier Shelf Expiration Date Model / Serial / Lot Cover Bur Hol Ti Lo 17 421.527 - [id number] Implanted:Qty: 1 on 01/22/2024 by Neo Lopez III, MD at [place] [facility] [place] Left: Head SYNTHES MAXILLOFACIAL 421.527 / / Screw Ti Lo Pro Sd 4mm 400.834 - [id number] Implanted:Qty: 8 on 01/22/2024 by Neo Lopez III, MD at [place] [facility] Left: Head SYNTHES MAXILLOFACIAL 400.834 / / Cover Bur Hol 15mm 421.526 - [id number] Implanted:Qty: 1 on 01/22/2024 by Neo Lopez III, MD at [place] [facility] [place] Left: Head SYNTHES MAXILLOFACIAL 421.526 / / documented as of this encounter Advance Directives Documents on File Type Date Recorded Patient Director Of Strategy & Mobile Expl anation Power of Vat Operator 01/24/2024 signed on 01/21/2024 POWER OF HAND BLOCKER * Full Code (Latest Code Status on [...] Discussed due to patient's condition Care Teams Green Energy Marketing Analyst Relationship Specialty Start Date End Date Beverly Gonzales CRNP [address] [place] [address] PCP - General Nurse Practitioner 04/24/23 documented as of this encounter
--- OUTSIDE RECORDS SUMMARY | 2024-05-06 16:18 | External Medical Summary ---
Author Name Unknown Address Unknown Organization : Laboratory Report Ordering Provider Test Date Status JORGE ESCOBAR III 01/22/2024 11:58:03 Final Observation Date Value Abnormality Reference (Units) Status Blood draw [PhenX] 01/22/2024 11:58:03 Arterial Draw Final pH, POC (i-STAT) 01/22/2024 11:58:03 7.398 7.350-7.450 Final PCO2 POC (i-STAT) 01/22/2024 11:58:03 37.7 35.0-45.0 (mm Hg) Final PO2 POC (i-STAT) 01/22/2024 11:58:03 93 75-100 (mm Hg) Final Base excess standard in Arterial blood by calculation 01/22/2024 11:58:03 -1 -2-2 (mmol/L) Final Bicarbonate, Venous, POC (i-STAT) 01/22/2024 11:58:03 23.3 23.0-31.0 (mmol/L) Final O2 Sat, calculated POC (i-STAT) 01/22/2024 11:58:03 97.0 94.0-98.0 (%) Final Glucose, whole blood 01/22/2024 11:58:03 118 70-120 (mg/dL) Final Potassium, Whole Blood 01/22/2024 11:58:03 3.5 3.5-5.1 (mmol/L) Final Sodium, Whole Blood 01/22/2024 11:58:03 136 135-146 (mmol/L) Final Calcium, Ionized, Whole Blood 01/22/2024 11:58:03 1.11 Below low normal 1.13-1.32 (mmol/L) Final Hemoglobin POC (i-STAT) 01/22/2024 11:58:03 15.0 14.0-16.8 (g/dL) Final HCT 01/22/2024 11:58:03 44 40-48 (%) Final Oxygen/Total gas setting [Volume Fraction] Ventilator 01/22/2024 11:58:03 40 (%) Final Performing Location
--- OUTSIDE RECORDS SUMMARY | 2024-05-06 16:18 | External Medical Summary ---
Author Name Unknown Address Unknown Organization K01:[facility]ATORY [facility] [place] - [address] [facility] [place] [address] Laboratory Report Ordering Provider Test Date Status ISABELLE ALVARADO 01/22/2024 15:35:01 Final Observation Date Value Abnormality Reference (Units ) Status SYNC LEUKOCYTES IN BLOOD BY AUTOMATED COUNT 01/22/2024 15:35:01 13.46 Above high normal 4.00-10.80 (K/uL) Final Segs 01/22/2024 15:35:01 89.9 Above high normal 40.0-75.0 (%) Final Lymphs % 01/22/2024 15:35:01 6.2 Below low normal 18.0-42.0 (%) Final Monos 01/22/2024 15:35:01 3.4 1.0-11.0 (%) Final Eosinophils 01/22/2024 15:35:01 0.0 0.0-6.0 (%) Final Basos 01/22/2024 15:35:01 0.1 0.0-2.0 (%) Final Immature Granulocyte, Percent 01/22/2024 15:35:01 0.4 0.0-2.0 (%) Final Absolute Segs 01/22/2024 15:35:01 12.09 Above high normal 1.80-7.70 (K/uL) Final Lymphs, absolute 01/22/2024 15:35:01 0.83 Below low normal 1.00-4.80 (K/ul) Final Monos, Abs 01/22/2024 15:35:01 0.46 0.00-1.10 (K/uL) Final Eos, Abs 01/22/2024 15:35:01 0.00 0.00-0.70 (K/uL) Final Basos, Abs 01/22/2024 15:35:01 0.02 0.00-0.20 (K/uL) Final Immature Granulocytes, Number 01/22/2024 15:35:01 0.06 0.00-0.20 (K/uL) Final Performing Location LAB[facility]ORY [facility] [place] - [facility] [address] [facility] [address]
--- OUTSIDE RECORDS SUMMARY | 2024-05-06 16:18 | External Medical Summary | Summary of Care ---
Author Name Unknown Organization [facility] Address [address] [facility] [place] [address] Phone [phone] Care Team Providers Care Awake Overnight Monitor Name Role Phone Beverly Gonzales Primary Care Provider Reason for Visit * Reason Onset Date Comments Appointment 01/18/2024 Encounter Details Date Type Department Care Team (Late st Contact Info) Description 01/18/[address] [facility] [address] [place] [address] Beverly Gonzales CRNP [address] [place] [address] Appointment Allergies No known active allergiesdocumented as of this encounter (statuses as of 01/18/2024) Medications Medication Sig Dispensed Refills Start Date End Date Status BiPAP every night at bedtime . Active Ventolin HFA 108 (90 Base) MCG/ACT Inhalation Aerosol Solution Inhale 2 Puffs by mouth every 4 hours as needed for Cough, Shortness of Breath or Wheezing. 18 g 1 04/24/2023 Active metFORMIN HCl ER 500 MG Oral Tablet Extended Release 24 Hour (Glucophage XR) Take 2 tablets by mouth twice daily 120 Tablet 2 11/20/2023 Active Losartan Potassium-HCTZ 50-12.5 MG Oral Tablet (Hyzaar) take 1 AND 1/2 tablets by mouth every morning 135 Tablet 12/24/2023 Active Mounjaro 2.5 MG/0.5ML Subcutaneous Solution Pen-injector (Tirzepatide)Indic ations:Type 2 diabetes mellitus without complication, [...] before bedtime). 30 Tablet 1 01/18/2024 Active dexAMETHasone 2 MG Oral Tablet (Decadron) Take 2 Tablets by mouth 4 times a day for 1 day, THEN 2 Tablets 3 times a day for 2 days, THEN 2 Tablets 2 times a day for 2 days, THEN 1 Tablet 2 times a day for 2 days. 32 Tablet 01/18/2024 Active documented as of this encounter (statuses as of 01/18/2024) Active Problems Problem Noted Date Diagnosed Date [...] titration from CPAP to BIPAP [facility] Morbid obesity 12/18/2014 Overview: Per Obesity protocol #1 Snoring 12/18/2014 Hypersomnia 12/18/2014 documented as of this encounter (statuses as of 01/18/2024) Resolved Problems Problem Noted Date Diagnosed Date Resolved Date Elevated LFTs 05/04/2021 05/04/2022 BMI 50.0-59.9, adult 12/25/2016 024 Overview: Per Obesity protocol #1 NO KNOWN PROBLEMS 11/14/2014 12/18/2014 documented as of this encounter (statuses as of 01/18/2024) Immunizations Name Administration Dates Next Due TDAP [...] you have serious difficulty h earing? No 01/16/2024 Are you blind or do you have serious difficulty seeing, even when wearing glasses? No 01/16/2024 Do you have serious difficul ty walking or climbing stairs? (5 years old or older) No 01/16/2024 Do you have difficulty dress ing or bathing? (5 years old or older) No 01/16/2024 Because of a physical, menta l, or emotional condition, do you have difficulty doing errands alone such as visiting a doctor s office or shopping? (15 years old or older) No 01/16/20 24 Cognitive Status Response Date of Assessm ent Because of a physical, menta l, or emotional condition, do you have serious difficulty concentrating, remembering, or making decisions? (5 years old or older) No 01/16/2024 documented as of this encounter Miscellaneous Notes * Telephone Encounter - Grace Vasquez OSA - 01/18/2024 1:12 PM EDT Appt scheduled with pt * Telephone Encounter - Beverly Gonzales CRNP - 01/18/2024 12:27 PM EDT Please schedule hospital follow up with JOCELYNN. Ok to use telemed slots- 40 minutes as he has new brain cancer diagnosis documented in this encounter Plan of Treatment Upcoming Encounters Date Type Department Care Team (Latest Contact Info) Description 01/22/2024 10:09 AM EDT Hospital Encounter [place] [facility], OPERATING RO[facility] [address] [place] [address] Neo Lopez III, MD [address] [place] [address] 01/22/2024 10:09 AM EDT - 01/22/2024 4:07 PM EDT Surgery OR [facility], [facility] [address] [place] [address] Neo Lopez III, MD [address] [place] [address] CRANIOTOMY BONE FLAP EXCISION BRAIN TUMOR SUPRATENTORIAL 01/24/2024 10:30 AM EDT Scheduled Telephone Neurosurgery, [place] [address] [place] [address] Cesario, Nurse Follow Up Phone Call Neurosurg [address] [place] [address] 02/05/2024 9:20 AM EST Office Visit Neurosurgery, [place] [address] [place] [address] Lorenzo Vallejo IV, PA-C [address] [place], [place] [phone] Scheduled Procedures Name Priority Associated Diagnoses Date/Ti me CRANIOTOMY BONE FLAP EXCISIO N BRAIN TUMOR SUPRATENTORIAL Malignant neoplasm of parietal lobe (HCC) 01/22/2024 10:09 AM EDT MICROSURGICAL SURGERY REQUIRING MICROSCOPE LISTED SEPARATELY Malignant neoplasm of parietal lobe (HCC) 01/22/2024 10:09 AM EDT Health Maintenance Due Date Last Done Comments [...] - Td or Tdap) 11/14/2024 11/14/2014 GFR 01/15/2025 01/16/2024, 10/25, 05/04/2022, Additional history exists Lipid Panel 05/04/2027 05/04/2022, 11/14/2014 HPV (Gardasil) Vaccine Aged Out No lo nger eligible based on patient's age to complete this topic MENINGOCOCCAL (MENACTRA/MENVEO) Aged Out No longer eligible based on patient's age to complete this topic documented as of this encounter Medical Devices Not on filedocumented as of this encounter Advance Directives * Full Code (Latest Code Status on File) Date Activated Date Inactivated Comments 01/16/2024 9:25 PM This order re flects the patients wishes and were consensually agreed upon. Question Answer Comments Discussion of Advance Direct isa occurred with: Not Discussed due to patient's condition Care Teams Awake Overnight Monitor Relationship Specialty Start Date End Date Beverly Gonzales CRNP [address] [place] [address] PCP - General Nurse Practitioner 04/24/23 documented as of this encounter
--- OUTSIDE RECORDS SUMMARY | 2024-05-06 16:18 | External Medical Summary | Summary of Care ---
Author Name Unknown Organization [facility] Address [address] [place] [address] Phone [phone] Care Team Providers Care Retort Pre Cooker Name Role Phone Janet Beverly OCHOA Primary Care Provider Encounter Details Date Type Department Care Team (Latest Contact Info) Description 01/16/2024 6:45 AM EDT - 01/16/2024 6:49 AM EDT Hospital Encounter Radiology Film File [address] [place] [address] Arrived Discharge Disposition: Home - Self Care Allergies No known active allergiesdocumented as of [...] ONCE A WEEK 2 mL 01/09/2024 Active documented as of this encounter (statuses as of 01/18/2024) Active Problems Problem Noted Date Diagnosed Date Brain mass 01/16/2024 Cerebral edema 01/16/2024 Neoplasm [...] hypoxemia, suboptimal titration from CPAP to BIPAP [facility] Morbid obesity 12/18/2014 Overview: Per [...] on file documented as of this encounter Plan of Treatment Upcoming Encounters Date Type Department Care Team (Latest Contact Info) Description 01/22/2024 10:09 AM EDT Hospital Encounter [facility], OPERATING [facility] [address] [place] [address] Neo Lopez III, MD [address], [place] [id number] 01/22/2024 10:09 AM EDT - 01/22/2024 4:07 PM EDT Surgery OR [facility], [facility] [address] [place] [id number] Neo Lopez III, MD [address], [place] [id number] CRANIOTOMY BONE FLAP EXCISION BRAIN TUMOR SUPRATENTORIAL 01/24/2024 10:30 AM EDT Scheduled Telephone Neurosurgery, [facility] [address] [facility] [place] [address] [facility] Nurse Follow Up Phone Call Neurosurg [address] [place] [facility] [place] [address] 02/05/2024 9:20 AM EST Office Visit Neurosurgery, [facility] [address] [place] [address] Lorenzo Vallejo IV, PA-C [address] [place] [address] Scheduled Procedures Name Priority Associated Diagnoses Date/Ti [...] 08/05/2022, Additional history exists COVID-19 Vaccine ( season) 2023 Influenza Vaccine [...] Not on filedocumented as of this encounter Procedures Procedure Name Priority Date/Time Associated Diagnosis Comments RADIOLOGY EXAM - CT (IMAGES ONLY, NO REPORT) Routine 01/16/2024 6:45 AM EDT documented in this encounter Results * RADIOLOGY EXAM - CT (IMAGES ONLY, NO REPORT) (01/16/2024 6:45 AM EDT) 01/16/2024 6:39 AM EDT Narrative Scheduling, Silent - 01/17/2024 11:22 AM EDT This is an imaging study not interpreted or resulted by a [facility] or [facility] contracted radiologist. Jim Segura DO RAD CT documented in this encounter Advance Directives * Full Code (Latest Code Status on File) Date Activated Date Inactivated Comments 01/16/2024 9:25 PM This order re flects the patients wishes and were consensually agreed upon. Question Answer Comments Discussion of Advance Direct isa occurred with: Not Discussed due to patient's condition Care Teams Retort Pre Cooker Relationship Specialty Start Date End Date Beverly Gonzales CRNP [address] [place] [id number] PCP - General Nurse Practitioner 04/24/23 documented as of this encounter
--- OUTSIDE RECORDS SUMMARY | 2024-05-06 16:18 | External Medical Summary ---
Author Name Unknown Address Unknown Organization : Laboratory Report Ordering Provider Test Date Status JORGE ESCOBAR III 01/22/2024 09:27:32 Final Observation Date Value Abnormality Reference (Units ) Status Glucose Point of Care 01/22/2024 09:27:32 107 70-120 (mg/dL) Final Performing Location
--- OUTSIDE RECORDS SUMMARY | 2024-05-06 16:18 | External Medical Summary ---
Author Name Unknown Address Unknown Organization : Laboratory Report Ordering Provider Test Date Status JORGE ESCOBAR III 01/22/2024 14:48:58 Final Observation Date Value Abnormality Reference (Units ) Status Glucose Point of Care 01/22/2024 14:48:58 129 Above high normal 70-120 (mg/dL) Final Performing Location
--- OUTSIDE RECORDS SUMMARY | 2024-05-06 16:18 | External Medical Summary ---
Author Name Unknown Address Unknown Organization : Laboratory Report Ordering Provider Test Date Status JORGE ESCOBAR III 01/22/2024 12:59:40 Final Observation Date Value Abnormality Reference (Units) Status Blood draw [PhenX] 01/22/2024 12:59:40 Arterial Draw Final pH, POC (i-STAT) 01/22/2024 12:59:40 7.432 7.350-7.450 Final PCO2 POC (i-STAT) 01/22/2024 12:59:40 36.7 35.0-45.0 (mm Hg) Final PO2 POC (i-STAT) 01/22/2024 12:59:40 84 75-100 (mm Hg) Final Base excess standard in Arterial blood by calculation 01/22/2024 12:59:40 1 -2-2 (mmol/L) Final Bicarbonate, Venous, POC (i-STAT) 01/22/2024 12:59:40 24.5 23.0-31.0 (mmol/L) Final O2 Sat, calculated POC (i-STAT) 01/22/2024 12:59:40 97.0 94.0-98.0 (%) Final Glucose, whole blood 01/22/2024 12:59:40 135 Above high normal 70-120 (mg/dL) Final Potassium, Whole Blood 01/22/2024 12:59:40 3.7 3.5-5.1 (mmol/L) Final Sodium, Whole Blood 01/22/2024 12:59:40 136 135-146 (mmol/L) Final Calcium, Ionized, Whole Blood 01/22/2024 12:59:40 1.10 Below low normal 1.13-1.32 (mmol/L) Final Hemoglobin POC (i-STAT) 01/22/2024 12:59:40 15.0 14.0-16.8 (g/dL) Final HCT 01/22/2024 12:59:40 44 40-48 (%) Final Oxygen/Total gas setting [Volume Fraction] Ventilator 01/22/2024 12:59:40 39 (%) Final Performing Location
--- OUTSIDE RECORDS SUMMARY | 2024-05-06 16:18 | External Medical Summary ---
Author Name Unknown Address Unknown Organization : Laboratory Report Ordering Provider Test Date Status JORGE ESCOBAR III 01/22/2024 21:44:39 Final Observation Date Value Abnormality Reference (Units ) Status Glucose Point of Care 01/22/2024 21:44:39 196 Above high normal 70-120 (mg/dL) Final Performing Location
--- OUTSIDE RECORDS SUMMARY | 2024-05-06 16:18 | External Medical Summary ---
Author Name Unknown Address Unknown Organization : Laboratory Report Ordering Provider Test Date Status JORGE ESCOBAR III 01/22/2024 13:21:00 Final Observation Date Value Abnormality Reference (Units ) Status REFERENCE LAB SCANNED REPORT 01/22/2024 13:21:00 See Scanned Report Final Performing Location
--- OUTSIDE RECORDS SUMMARY | 2024-05-06 16:18 | External Medical Summary ---
Author Name Unknown Address Unknown Organization K01:[facility] [address] [place] [address] Laboratory Report Ordering Provider Test Date Status JORGE ESCOBAR III 01/22/2024 09:18:26 Final Observation Date Value Abnormality Reference (Units ) Status ABO 01/22/2024 09:18:26 A Final RH 01/22/2024 09:18:26 Negative Final Performing Location [facility] [address] [place] [id number]
--- OUTSIDE RECORDS SUMMARY | 2024-05-06 16:18 | External Medical Summary | Summary of Care ---
Author Name Unknown Organization [facility] Address [address] [place] [address] Phone [phone] Care Team Providers Care Salesperson Meats Name Role Phone Beverly Gonzales Aurora OCHOA Primary Care Provider Reason for Visit * Reason Comments Numbness R arm/leg Abnormal Test Results Abnormal CT Head * Auth/Cert Specialty Diagnoses / Procedures Referred By Erich rodgers Referred To Contact Diagnoses Brain tumor [facility] [address] [place] [address] Phone: [phone] [facility] [address] [place] [address] Referral ID Status Reason Start Date Expiration Date Visits Re quested Visits Authorized [id number] Encounter Details Date Type Department Care Team (Latest Contact Info) Description 01/16/2024 12:27 PM EDT - 01/18/2024 12:24 PM EDT Hospital Encounter [id number] [facility], [facility] 4TH FLOOR [address] [place] [address] Edison Carter, [address] [place] [address] Joshua Miller MD [address], [place] [id number] Neo Lopez III, MD [address], [place] [id number] Discharge Disposition: Home - Self Care Allergies No known active allergiesdocumented as of this encounter (statuses as of 01/19/2024) Medications Medication Sig Dispensed Refills Start Date [...] day for 2 days. 32 Tablet 01/18/2024 01/25/20 Active Benzonatate 100 MG Oral Capsule Take 1 Capsule by mouth 3 times a day as needed for Cough. 30 Capsule 1 04/24/2023 01/17/20 Discontinu ed(Medicat ion List Clean Up) documented as of this encounter (statuses as of 01/19/2024) Active Problems Problem Noted Date Diagnosed Date [...] CPAP to BIPAP [facility] Morbid obesity 12/18/2014 Overview: Per Obesity protocol #1 Snoring 12/18/2014 Hypersomnia 12/18/2014 documented as of this encounter (statuses as of 01/19/2024) Resolved Problems Problem Noted Date Diagnosed Date Resolved Date Elevated LFTs 05/04/2021 05/04/2022 BMI 50.0-59.9, adult 12/25/201605/10/ 024 Overview: Per Obesity protocol #1 NO KNOWN PROBLEMS 11/14/2014 12/18/2014 documented as of this encounter (statuses as of 01/19/2024) Immunizations Name Administration Dates Next Due TDAP [...] Sign Reading Time Taken Comments Blood Pressure 127/77 01/18/2024 10:07 AM EDT Pulse 59 01/18/2024 10:07 AM EDT Temperature 36.9 C (98.4 F) 01/18/2024 1 0:07 AM EDT Respiratory Rate 16 01/18/2024 10:0 7 AM EDT Oxygen Saturation 94% 01/18/2024 10: 07 AM EDT Inhaled Oxygen Concentration - - Weight 118.5 kg (261 lb 3.2 oz) 01/16/2024 9:35 PM EDT Height 165.1 cm (5' 5") 01/16/2024 9:35 PM EDT Body Mass Index 43.47 01/16/2024 9:35 PM EDT documented in this encounter Functional Status Functional [...] (15 years old or older) No 01/16/20 Cognitive Status Response Date of Assessm ent Because of a physical, menta l, or emotional condition, do you have serious difficulty concentrating, remembering, or making decisions? (5 years old or older) No 01/16/2024 documented as of this encounter Discharge Instructions * Discharge Instr - AVS* aHlley Chiang PA-C - 01/18/2024 8:34 AM EDT Discharge Date: 01/18/2024 You may call Doctor Jessica of the department of Neurosurgery at [phone] during business hours for any questions or test results. For after-hours emergencies call [phone] and have your doctor paged. The information below provides you with the instructions and the list of medications you need to betaking following discharge from the hospital. If you have any questions, please ask before leaving.Please carry this letter with you when you see your doctor in the clinic. If you have questions, you can reach us at the numbers above. Brief summary of your inpatient care: Mariano was found to have a (L) frontoparietal region mass, compatible with neoplasm. Mariano was medically optimized for surgical procedure planned for 01/22/[address] Lopez. Your doctors during this hospitalization included: Dr. Lopez Your primary diagnosis at discharge was frontoparietal mass into the corpus collosum Inpatient test results pending: None Operations & Procedures: None Complications: none significant Advance Directive Documented: Advance Directive Does the Patient have an Advance Directive? No Diet: Normal Diet Activity: No restrictions Driving: Don't drive until you are off narcotics for one full week and can walk normally and firmlyapply the brake without pain. Date you may return to work or school: Based on further instruction reviewed by surgeon after follow up visit. See your primary care physician (DON Flores) as follow-up Special Instructions: - Call your primary care physician or seek medical attention if symptoms worsen, condition deteriorates. documented in this encounter Progress Notes * Elijah Nelson MD - 01/17/2024 7:58 AM EDT NEUROLOGICAL SURGERY PROGRESS NOTE [address] [address] Name: Mariano Guillen Location: [facility] A463/A Date: 01/17/2024 Time: 7:58 AM SUBJECTIVE: NAEO OBJECTIVE: Most recent vital signs: BP: 142 mmHg/79 mmHg (01/17/24621) Pulse: 77 (01/17/24621) Resp: 18 (01/17/24621) Temp: 35.89 C (01/17/24621) Temp Summary: Temp Min: 35.9 C (96.6 F) Max: 36.5 C (97.7 F) SpO2: 100 % (01/17/24621) O2 flow rate: 0 L/MIN (01/17/24621) Supplemental O2 Delivery: Room Air, None (01/17/24621) Vital signs over last 24 hours: Systolic BP: Most Recent Systolic BP Av.4 mmHg Min: 123 mmHg Max: 167 mmHg Temperature: Most Recent Temperature Av.2 C Min: 35.89 C Max: 36.5 C Pulse: Pulse Avg: Pulse Av.9 Min: 59 Max: 106 Respirations: Resp Av.6 Min: 12 Max: 25 SpO2: SpO2 Av.1 % Min: 92 % Max: 100 % SpO2: SpO2 Av.1 % Min: 92 % Max: 100 % FiO2%: No data recorded ICP: No data found.CPP (adult): No data found.Intake Input/Output: (last 24 hours) No intake or output data in the 24 hours ending 01/17/24 0756 Neurologic Examination Awake, alert, oriented to person, place, time PERRL EOMI No facial droop No pronator drift LANDON to command RUE 5/5 LUE 5/5 RLE 5/5 LLE 5/5 Sensation grossly intact LABS: Blood count: Lab Results Component Value Date/Time WBC 13.27 (H) 01/16/2024 09:55 PM HGB 16.6 01/16/2024 09:55 PM HCT 48.5 (H) 01/16/2024 09:55 PM PLT 293 01/16/2024 09:55 PM Coagulation studies: Lab Results Component Value Date/Time INR 1.0 01/16/2024 09:55 PM Chemistry: Lab Results Component Value Date/Time BUN 16 01/16/2024 09:55 PM CREAT 0.8 01/16/2024 09:55 PM NA 138 01/16/2024 09:55 PM POTASSIUM 3.6 01/16/2024 09:55 PM CO2 22 01/16/2024 09:55 PM Imaging studies: No new images Problem list: Active Problems: Brain mass Cerebral edema (HCC) Neoplasm causing mass effect and brain compression on adjacent structures (HCC) Resolved Problems: * No resolved hospital problems. * CLINICAL HISTORY AND PLAN: Mariano Guillen is a 53 year old, right-handed male with a past medical history significant for HTN, obesity, and ELY; new onset numbness causing a presentation at the local ED, CT head showing a left parieto-occipital mass with surrounding vasogenic edema causing local mass effect concerning for glioma; CTA head/neck without obvious vascular pathology; CT chest, abdomen, and pelvis non concerning for mass or tumor Will discuss potential surgical plans Ok for diet now Ok for SQH SOCIAL MEDIA CONTENT MANAGER meds as ordered Discussed with Dr. Paul Nelson MD Neurosurgery, PGY3 Associated attestation - Neo Lopez III, MD - 01/17/2024 1:54 PM EDT I saw and evaluated the patient today. I have reviewed the resident/fellow physician note and agree. I visited with Mr. 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 He may be a bit better on steroids. I discussed with him surgical intervention followedby XRT and chemo as the primary option right now. We discussed the technical details of surgery andcovered the risks, including but not limited to: bleeding, infection, CSF leak, wound complication,neurological deficit, need for more treatment or surgery, ICH, seizure, stroke, incomplete resection, lack of expected outcome or result, or even . He and his family endorsed understanding. I answered their question to their satisfaction. No guarantees were stated or implied. Informed consent w ill be obtained. Will sort out a medicine preop eval in house and dc followed by surgery next week. Neo Lopez III, MD, PhD 01/17/2024 1:54 PM. documented in this encounter H&P Notes * Elijah Nelson MD - 01/16/2024 9:26 PM EDT H&P - Neurosurgery [facility] [address] Name: Mariano Guillen Location: Date: 01/16/2024 Time: 1:14 PM REQUESTING SERVICE: Emergency Medicine REASON FOR CONSULT: "Mass lesion" HPI: Mariano Guillen is a 53 year old, right-handed male with a past medical history significant for HTN, T2DM, obesity, and ELY; presents to [facility] via transfer from an outside hospital. The patient began experiencing RLE numbness last evening which progressed to his RUE earlier this morning. He presented at the outside hospital where medical imaging was completed showing a possible left parieto-occipital lesion with surrounding vasogenic edema causing mass effect. We were contacted by an outside hospital provider and encouraged the transferred to the [facility] ED. Upon arrival the patient was seen and examined; still complaining of some numbness of his RUE. He denies any other symptoms that are new. Denies headaches or visual changes Denies any changes in thought, mood, or memory Denies seizures or seizure-like activity Denies any issue with hearing, smelling, tasting, or swallowing Denies neck pain Denies chest pain, palpations, or dyspnea Denies any abdominal pain, diarrhea, or constipation Denies any blood in stool or urine No changes in urination pattern; no burning, or increased frequency Denies numbness, tingling, or weakness of the extremities HISTORY: Past Medical History: Past Medical History Past Medical History: Diagnosis Date Hypertension Morbid obesity (HCC) Sleep apnea Sleep apnea, obstructive Past Surgical History: Past Surgical History Past Surgical History: Procedure Laterality Date INFORMATION Left left hand surgery to remove nail from hand Social History: Social History Social History Tobacco Use Smoking status: Former Types: Cigarettes Start date: 2018 Smokeless tobacco: Current Types: Snuff Vaping Use Vaping status: Never Used Substance Use Topics Alcohol use: Yes Alcohol/week: 4.0 standard drinks of alcohol Types: 4 12 oz of beer per week Comment: on weekends- 4 at a time Drug use: No Family History: Family History Family History Problem Relation Name Age of Onset No Past Hx None Current Hospital Medications: Note that completed medications (per the MAR) continue to display for 24 hours. Ordered medicationsto be given in the future also display. No current facility-administered medications for this encounter. Current Outpatient Medications Medication Mounjaro 2.5 MG/0.5ML Subcutaneous Solution Pen-injector (Tirzepatide) Losartan Potassium-HCTZ 50-12.5 MG Oral Tablet (Hyzaar) metFORMIN HCl ER 500 MG Oral Tablet Extended Release 24 Hour (Glucophage XR) Ventolin HFA 108 (90 Base) MCG/ACT Inhalation Aerosol Solution Benzonatate 100 MG Oral Capsule BiPAP Allergies: Allergies Patient has no known allergies. ROS: All ROS were reviewed and are only positive for the above noted pertinent complaints PHYSICAL EXAMINATION: Most Recent Vital Signs: BP: 154 mmHg/81 mmHg (01/16/24 1300) Pulse: 73 (01/16/24 1300) Resp: 20 (01/16/24 1300) Temp: 36.39 C (01/16/24 1228) Temp Summary: Temp Min: 36.4 C (97.5 F) Max: 36.4 C (97.5 F) SpO2: 92 % (01/16/24 1300) O2 flow rate: Supplemental O2 Delivery: Room Air, None (01/16/24 1300) Vital Signs Over Last 24 Hours: Systolic BP: Most Recent Systolic BP Av.5 mmHg Min: 151 mmHg Max: 154 mmHg Temperature: Most Recent Temperature Av.39 C Min: 36.39 C Max: 36.39 C Pulse: Pulse Av Min: 73 Max: 83 Respirations: Resp Av Min: 18 Max: 20 SpO2: SpO2 Av.5 % Min: 92 % Max: 95 % Pt found lying in bed; NAD Pleasant and cooperative with exam AOx3 PERRL, EOMs intact, no nystagmus Facial sensation intact, features symmetrical Tongue/uvula midline Good shoulder shrug Lina to command No motor or sensory deficits No pronator drift Some passpointing bilaterally on FTN Upper Extremity: Right Left Biceps 5/5 5/5 Triceps 5/5 5/5 Deltoid 5/5 5/5 Sponsorship Manager 5/5 5/5 Interosseous 5/5 5/5 Lower Extremity: Right Left Hip flexor 5/5 5/5 Hip extensor 5/5 5/5 Knee flexor 5/5 5/5 Knee extension 5/5 5/5 Dorsiflexion 5/5 5/5 Plantarflexion 5/5 5/5 LABS: Labs reviewed as indicated below: pending IMAGING: My Interpretation of Current Images: CT head showing a left parieto-occipital mass lesion with surrounding vasogenic edema causing localmass effect CTA head/neck without any obvious vascular pathology COUNSELING TIME: I spent 90 minutes with this patient of which greater than half the time was spentreviewing diagnosis, physical exam, imaging, and treatment IMPRESSION: 53 year old, right-handed male with a past medical history significant for HTN, obesity, and ELY; new onset numbness causing a presentation at the local ED, CT head showing a left parieto-occipital mass with surrounding vasogenic edema causing local mass effect concerning for an underlying lesion; CTA head/neck without obvious vascular pathology; CT chest, abdomen, and pelvis non concerning for mass or tumor RECOMMENDATIONS: Recommended MRI brain w/wo contrast, BrainLAB protocol with DTI Further recommendations to follow after MRI Will continue to follow Patient discussed with Dr. Torres Associated attestation - Joshua Miller MD - 01/17/2024 4:53 PM EDT I saw and evaluated the patient today. I have reviewed the resident/fellow physician note and agree. Likely primary brain lesion. Will discuss surgery timing. documented in this encounter Consult Notes * Milana Hardin RN - 01/18/2024 11:04 AM EDTAssociated Order(s): CARE MANAGEMENT CONSULT IP See note in Ancillary section. CM to follow during hospital course. Thanks Chart reviewed. Patient discussed with Nursing and In IDT's . No Care Management needs identified at this time. Care Management will continue to follow. * Damien Hall MD - 01/18/2024 6:28 AM EDTAssociated Order(s): General Internal Medicine Consult IP Images from the original note were not included. [facility] A463/A General Internal Medicine Consult IP Consult performed by: Damien Hall MD Consult ordered by: Elijah Nelson MD REASON FOR CONSULT: preop risk stratification, medical optimization REQUESTOR OF CONSULT: Neurosurgery HPI: Mariano Guillen is a 53 year old male with PMH significant for essential HTN, dyslipidemia, type 2 DM (HGB A1c 6.2 on 02/26/2023), morbid obesity, Body mass index is 43.47 kg/m. Severe ELY, tobacco use disorder, fatty liver, presented [facility] transfer from an outsidehospital with new onset of RLE numbness which progressed to RUL with CT head showing a left parieto-occipital lesion with surrounding vasogenic edema and mass effect concerning for glioma. Additional workup, CT head/neck without obvious vascular pathology, CT chest/abd/pelvis not concerning for mass or tumor. An MRI brain on 01/16/24 showed an infiltrating enhancing tumor in the medialaspect of the left parietal lobe measuring 3.6 cm consistent with high-grade glioma such as GBM with extension medially into the splenium of the corpus callosum and adjacent left lateral ventricle with associated peritumoral vasogenic edema and mass effect. Medicine was consulted for preop risk stratification and medical optimization. On review of systems, patient denied visual changes, nausea, vomiting, headache, the strength on his right upper and lower extremities has improved with steroid initiation. Subjective Patient's past history, medications, and allergies were reviewed. Objective Physical Exam Most Recent Vital Signs: BP: 117 mmHg/66 mmHg (01/18/24606) Pulse: 61 (01/18/24606) Resp: 16 (01/18/24606) Temp: 36.11 C (01/18/24606) Temp Summary: Temp Min: 36.1 C (97 F) Max: 37.4 C (99.3 F) SpO2: 99 % (01/18/24606) O2 flow rate: 0 L/MIN (01/18/24 0201) Supplemental O2 Delivery: Room Air, None (10/25/24 0607) Constitutional: no acute distress, (+) morbidly obese HEENT: normal: normocephalic, atraumatic; no masses, tenderness, or adenopathy Eyes: PERRLA, sclera and conjunctiva normal Neck: supple, no thyromegaly CV: normal rate and rhythm, no murmur, gallops or rub Chest: normal respiratory effort, breath sounds normal Abdomen: normal: soft, bowel sounds normal, no masses, tenderness or organomegaly Extremities: no clubbing, cyanosis, or edema, otherwise grossly normal, warm, and dry Skin: warm, dry: Neuro: alert, oriented to person, place, and time, cranial nerves intact, sensory normal, (+) decreased strength on right upper and lower extremities 4/5 Peripheral Line Right;Upper (Active) Number of days: 1 STUDIES: Encounter Orders Labs and other studes reviewed with pertinent findings noted below: Normal creatinine and electrolytes Blood glucose 164 HGB A1c 6.2 on 02/26/2023 WBC 13 K, HGB 16.6, normal platelets Assessment and Plan IMPRESSION: 53 year old male with PMH significant for essential HTN, dyslipidemia, type 2 DM (HGB A1c 6.2 on 02/26/2023), morbid obesity, BMI 43.47 kg/m. severe ELY, tobacco use disorder, fatty liver, presented to [facility] via transfer from an outside hospital with new onset of RLE numbness which progr essed to RUL with CT head showing a possible left parieto-occipital lesion with surrounding vasogenic edema and mass effect concerning for glioma. Additional workup showed a CT head/neck without obvious vascular pathology, CT chest/abd/pelvis notconcerning for mass or tumor. An MRI brain on 01/16/24 showed an infiltrating enhancing tumor in the medial aspect of the left parietal lobe measuring 3.6 cm consistent with high-grade glioma such asGBM with extension medially into the splenium of the corpus callosum and adjacent left lateral ventricle with associated peritumoral vasogenic edema and mass effect. Medicine was consulted for preop risk stratification and medical optimization. Active Problems: Brain mass Cerebral edema (HCC) Neoplasm causing mass effect and brain compression on adjacent structures (HCC) Brain compression (HCC) Resolved Problems: * No resolved hospital problems. * RECOMMENDATIONS: Brain mass with cerebral vasogenic edema and mass effect Management per Neurosurgery His revised Stubbs cardiac risk index (RCRI) rate of myocardial infarction, pulmonary edema, ventricular fibrillation, primary cardiac arrest, and complete heart block according to the presence of 1independent predictor of major cardiac complications (kind of surgery) = 1.3% ARISCAT Risk Index predicts the overall incidence of postoperative pulmonary complications (of any severity), by assigning a weighted point score to seven independent risk factors: - Age - 51 to 80 years old (3 points) - Preoperative oxygen saturation - >=96% (0 points) - No respiratory infection within the past month (0 points) - No Preoperative anemia (Hb </= 10.0) (0 points) - Emergency surgery (0 points) - Surgical incision - No upper abdominal or thoracic surgery - (0 points) - Duration of surgery 2 to 3 hours (16 points) Mariano Guillen has 19 points which is Low risk: 1.6% pulmonary complication rate Patient is currently hemodynamically and respiratory stable He has medically optimized for surgery Chronic conditions: HTN, dyslipidemia, type 2 DM, obesity (BMI 43.47), ELY Continue SOCIAL MEDIA CONTENT MANAGER losartan-HCTZ 50-12.5 mg daily - Hold the day of the surgery Hold SOCIAL MEDIA CONTENT MANAGER metformin perioperatively Consider medium sliding scale insulin and adjust accordingly while inpatient on steroids Hold SOCIAL MEDIA CONTENT MANAGER Mounjaro while inpatient Continue nocturnal CPAP Continue albuterol as needed Please note that medicine service will not follow-up the patient routinely. Please call if any questions or concerns. Brain mass with vasogenic edema and mass effect will result in a threat to life or bodily function if not treated * Edison Leon PA-C - 01/16/2024 1:14 PM EDTAssociated Order(s): NEUROSURGERY CONSULT IP CONSULT - Neurosurgery [facility] [place] [address] Name: Mariano Guillen Location: Date: 01/16/2024 Time: 1:14 PM REQUESTING SERVICE: Emergency Medicine REASON FOR CONSULT: "Mass lesion" HPI: Mariano Guillen is a 53 year old, right-handed male with a past medical history significant for HTN, T2DM, obesity, and ELY; presents to [facility] via transfer from an outside hospital. The patient began experiencing RLE numbness last evening which progressed to his RUE earlier this morning. He presented at the outside hospital where medical imaging was completed showing a possible left parieto-occipital lesion with surrounding vasogenic edema causing mass effect. We were contacted by an outside hospital provider and encouraged the transferred to the [facility] ED. Upon arrival the patient was seen and examined; still complaining of some numbness of his RUE. He denies any other symptoms that are new. Denies headaches or visual changes Denies any changes in thought, mood, or memory Denies seizures or seizure-like activity Denies any issue with hearing, smelling, tasting, or swallowing Denies neck pain Denies chest pain, palpations, or dyspnea Denies any abdominal pain, diarrhea, or constipation Denies any blood in stool or urine No changes in urination pattern; no burning, or increased frequency Denies numbness, tingling, or weakness of the extremities HISTORY: Past Medical History: Past Medical History: Diagnosis Date Hypertension Morbid obesity (HCC) Sleep apnea Sleep apnea, obstructive Past Surgical History: Past Surgical History: Procedure Laterality Date INFORMATION Left left hand surgery to remove nail from hand Social History: Social History Tobacco Use Smoking status: Former Types: Cigarettes Start date: 2018 Smokeless tobacco: Current Types: Snuff Vaping Use Vaping status: Never Used Substance Use Topics Alcohol use: Yes Alcohol/week: 4.0 standard drinks of alcohol Types: 4 12 oz of beer per week Comment: on weekends- 4 at a time Drug use: No Family History: Family History Problem Relation Name Age of Onset No Past Hx None Current Hospital Medications: Note that completed medications (per the MAR) continue to display for 24 hours. Ordered medicationsto be given in the future also display. No current facility-administered medications for this encounter. Current Outpatient Medications Medication Mounjaro 2.5 MG/0.5ML Subcutaneous Solution Pen-injector (Tirzepatide) Losartan Potassium-HCTZ 50-12.5 MG Oral Tablet (Hyzaar) metFORMIN HCl ER 500 MG Oral Tablet Extended Release 24 Hour (Glucophage XR) Ventolin HFA 108 (90 Base) MCG/ACT Inhalation Aerosol Solution Benzonatate 100 MG Oral Capsule BiPAP Allergies: Patient has no known allergies. ROS: All ROS were reviewed and are only positive for the above noted pertinent complaints PHYSICAL EXAMINATION: Most Recent Vital Signs: BP: 154 mmHg/81 mmHg (01/16/24 1300) Pulse: 73 (01/16/24 1300) Resp: 20 (01/16/24 1300) Temp: 36.39 C (01/16/24 1228) Temp Summary: Temp Min: 36.4 C (97.5 F) Max: 36.4 C (97.5 F) SpO2: 92 % (01/16/24 1300) O2 flow rate: Supplemental O2 Delivery: Room Air, None (01/16/24 1300) Vital Signs Over Last 24 Hours: Systolic BP: Most Recent Systolic BP Av.5 mmHg Min: 151 mmHg Max: 154 mmHg Temperature: Most Recent Temperature Av.39 C Min: 36.39 C Max: 36.39 C Pulse: Pulse Av Min: 73 Max: 83 Respirations: Resp Av Min: 18 Max: 20 SpO2: SpO2 Av.5 % Min: 92 % Max: 95 % Pt found lying in bed; NAD Pleasant and cooperative with exam AOx3 PERRL, EOMs intact, no nystagmus Facial sensation intact, features symmetrical Tongue/uvula midline Good shoulder shrug Lina to command No motor or sensory deficits No pronator drift Some passpointing bilaterally on FTN Upper Extremity: Right Left Biceps 5/5 5/5 Triceps 5/5 5/5 Deltoid 5/5 5/5 Sponsorship Manager 5/5 5/5 Interosseous 5/5 5/5 Lower Extremity: Right Left Hip flexor 5/5 5/5 Hip extensor 5/5 5/5 Knee flexor 5/5 5/5 Knee extension 5/5 5/5 Dorsiflexion 5/5 5/5 Plantarflexion 5/5 5/5 LABS: Labs reviewed as indicated below: pending IMAGING: My Interpretation of Current Images: CT head showing a left parieto-occipital mass lesion with surrounding vasogenic edema causing localmass effect CTA head/neck without any obvious vascular pathology COUNSELING TIME: I spent 90 minutes with this patient of which greater than half the time was spentreviewing diagnosis, physical exam, imaging, and treatment IMPRESSION: 53 year old, right-handed male with a past medical history significant for HTN, obesity, and ELY; new onset numbness causing a presentation at the local ED, CT head showing a left parieto-occipital mass with surrounding vasogenic edema causing local mass effect concerning for an underlying lesion; CTA head/neck without obvious vascular pathology; CT chest, abdomen, and pelvis non concerning for mass or tumor RECOMMENDATIONS: Recommended MRI brain w/wo contrast, BrainLAB protocol with DTI Further recommendations to follow after MRI Will continue to follow Patient discussed with Dr. Melissa Leon, [facility] [place], [place]-C Lead Physician Master Carpenter, Department of Neurosurgery Informatics Developer of Neurosurgery, [facility] 01/16/2024 (This note was completed using the dictation program Fluency Direct. As such, there may be misspellings, word substitutions, or other variations that should not change the essence of the clinical content of this encounter note. If there is need for further clarification, please direct questions to the provider listed above.) Associated attestation - Joshua Miller MD - 01/17/2024 4:52 PM EDT I have reviewed the advanced practitioner's documentation on the date of service referenced in note, and I agree with, and take responsibility for the plan of care. I spent a total of 20 minutes coordinating, documenting, and providing care for this patient excluding time spent in the performance of separately billed services or time spent by another provider/QHP. Late entry for 01/16/24 documented in this encounter Nursing Notes * Denita Horn RN - 01/18/2024 12:17 PM EDT I have reviewed and agreed with the documented assessment by Keith Lawson RN. * Carmina Parker RN - 01/16/2024 9:25 PM EDT Dual Licensed Skin Assessment completed by Carmina Parker and Pa Vo. The patient is/has a N/A Skin Breakdown (includes non blanchable erythema): No, Patient does have a small scratch/open area on Right crooks. documented in this encounter ED Notes * Edison Carter, DO - 01/16/2024 12:57 PM EDT HISTORY OF PRESENT ILLNESS Mariano Guillen is a 53 year old male who presents to the ED for evaluation of Numbness (R arm/leg) and Abnormal Test Results (Abnormal CT Head). The patient was seen at 01/16/24 1228. Review of Systems All other systems reviewed and are negative. 33-year-old male with a history of type 2 diabetes, obstructive sleep apnea, presenting to the ED as a transfer from [facility] for evaluation of intracranial mass. Symptoms started yesterday withright lower extremity numbness. Symptoms progressed to right upper extremity numbness this morning. Patient was assessed at [facility] and was noted to have a lesion in the high left parietal lobemeasuring 4 x 2 cm in axial dimension. Associated surrounding edema with effacement of overlying cortical sulci. No [id number] midline shift. Was given Decadron 10 mg prior to transfer. Patient describes current symptoms as walking while being drunk. The patient's allergies, past history, and medications were reviewed. PHYSICAL EXAM Initial Vitals (see all): BP 151/85 | Pulse 83 | Resp 18 | Temp 97.5 | O2 95 %, Room Air, None | Weight 118.48 kg | Height 165.1 cm | BMI 43.47 kg/m2 Initial Pain Assessment (see all): 0 (no pain)/10 ([facility] Adult Scale 0-10) Physical Exam Vitals and nursing note reviewed. Constitutional: General: He is not in acute distress. Appearance: He is well-developed. He is not diaphoretic. HENT: Head: Normocephalic and atraumatic. Nose: Nose normal. Eyes: General: No scleral icterus. Pupils: Pupils are equal, round, and reactive to light. Neck: Thyroid: No thyromegaly. Vascular: No JVD. Cardiovascular: Rate and Rhythm: Normal rate and regular rhythm. Heart sounds: Normal heart sounds. No murmur heard. No friction rub. No gallop. Pulmonary: Effort: Pulmonary effort is normal. No respiratory distress. Breath sounds: Normal breath sounds. No wheezing or rales. Chest: Chest wall: No tenderness. Abdominal: General: Bowel sounds are normal. There is no distension. Palpations: Abdomen is soft. There is no mass. Tenderness: There is no abdominal tenderness. There is no rebound. Musculoskeletal: General: Normal range of motion. Cervical back: Normal range of motion and neck supple. Lymphadenopathy: Cervical: No cervical adenopathy. Skin: General: Skin is warm and dry. Capillary Refill: Capillary refill takes less than 2 seconds. Neurological: Mental Status: He is alert and oriented to person, place, and time. GCS: GCS eye subscore is 4. GCS verbal subscore is 5. GCS motor subscore is 6. Sensory: Sensory deficit (numbness, deficit along right side) present. Motor: Motor function is intact. Deep Tendon Reflexes: Reflexes normal. PROCEDURES AND TREATMENTS ED Orders | ED Results MEDICAL DECISION MAKING Nursing notes and vital signs were reviewed. ED consults were placed. ED Course as of 01/18/24 1047 Wed Jan 16, [address] Chest/Abdomen/Pelvis with IV Contrast without Oral Contrast No acute pathology [GK] 1652 I assumed care of this patient at this time. [VT] 1818 I discussed the results of the CT and MRI with the patient. I discussed that we are currently awaiting Neurosurgery recommendations on admission and further plan. [VT] ED Course User Index [GK] Jim Segura DO [VT] Alexey Oscar DO Patient is a 53 year old male presenting to the ED for evaluation of numbness and abnormal imaging.Vital signs reviewed and within normal limits. Physical exam as listed. Given previous imaging (CT)notable for mass lesion with vasogenic edema, neurosurgery was consulted for evaluation. Per their r ecommendation for further imaging, CT C/A/P was ordered to rule out vascular pathology and MRI brain for better characterization of mass lesion. Per my independent interpretation, CT C/A/P showing noevidence of acute vascular pathology. Refer to radiology read for definitive interpretation. While waiting for MRI brain imaging, and neurosurgery recommendations, patient was signed out to Dr. Oscar. Refer to ED course and sign out note for further review of care while in the ED. Amount and/or Complexity of Data Reviewed Radiology: ordered. Decision-making details documented in ED Course. Risk Prescription drug management. Decision regarding hospitalization. Clinical Impressions Right parietal lobe mass Disposition Admitted. I discussed the management of this patient with the admitting provider and I made a decision to admit the patient. Admission Order Ordered Status . 01/16/242102 Admit for Inpatient Services (incl ZPO) ONCE Completed Edison Carter was the attending physician who supervised the care of this patient. Jim Segura DO ATTENDING ATTESTATION I have seen and examined this patient on the 01/16/2024 visit. I have discussed the patient's management with the provider listed above and agree with the note, findings, and plan of care. documented in this encounter Miscellaneous Notes * Care Plan - Keith Lawson RN - 01/18/2024 11:33 AM EDT Clinical Goal(s): patient will not fall (01/18/24 0900) Possible barriers to meeting goal(s)/advancing plan of care: brain tumor without plan at present Stability of the patient: Moderately stable - low risk of patient condition declining or worsening Summary regarding today's goal(s): Met: no falls Recommendations: continue to monitor when re- hospitalized. * Ancillary Progress Note - Milana Hardin RN - 01/18/2024 11:06 AM EDT CARE MANAGEMENT - ADULT TRANSITION NOTE [facility] [place] [address] Name: Mariano Guillen Location: [facility] A463/A Date: 01/18/2024 Time: 11:06 AM Risk Stratification Readmission Risk Score: 10.15 (01/18/24 0801) AM-PAC Score With Stairs : 24 (01/17/241999) Caregiver Information Patient Contacts Name Relation Home Work Mobile Grace Guillen Other - (no specific identity) [phone] Transition of Care Checklist Narrative: CM has been following Patient's hospital course. Patient discussed in IDT rounds. They are medically stable for discharge at this and will return for OR on Sunday01/22/2024 with Neurosurgery. No needs anticipated at this time, CM will continue to follow for discharge needs. Anticipated Transportation at Discharge: Spouse Patient/Family Expectations: return home independent Transition Planning Care Management will continue to monitor and assist with discharge planning needs * Care Plan - Beth Santana RN - 01/18/2024 12:51 AM EDT Clinical Goal(s): patient will be free of falls this shift (01/17/24 2300) Possible barriers to meeting goal(s)/advancing plan of care: n/a Stability of the patient: Moderately stable - low risk of patient condition declining or worsening Summary regarding today's goal(s): Met: free of falls this shift Recommendations: bed at low level, call galvan/belongings within reach, non-slip footwear, hourly rounding * Care Plan - Denita Horn RN - 01/17/2024 6:34 PM EDT Clinical Goal(s): pt will be free from falls by end of shift (01/17/24 0700) Possible barriers to meeting goal(s)/advancing plan of care: fall risk Stability of the patient: Moderately stable - low risk of patient condition declining or worsening Summary regarding today's goal(s): Met: pt remained free from falls by end of shift Recommendations: continue hourly rounding * Care Plan - Carmina Parker RN - 01/17/2024 5:37 AM EDT Patient will remain free from falls and injury during this shift 01/16/24. Possible barriers to meeting goal(s)/advancing plan of care: Patient came in after a fall at home with numbness and tingling in right leg and right hand. Stability of the patient: Moderately stable - low risk of patient condition declining or worsening Summary regarding today's goal(s): Met: Patient remained free from falls and injury during this shift 01/16/24. Recommendations: Hourly rounding, call galvan within reach, bed alarms activated, out of bed with assistance. * Ancillary Progress Note - Therese Coronel RRT - 01/16/2024 10:14 PM EDT PATIENT DRIVEN PROTOCOL - Respiratory Care Services [facility] [place] [address] Name: Mariano Guillen Location: [facility] A463/A Date: 01/16/2024 Time: 10:14 PM Patient Driven Protocol Summary: Initial evaluation performed. This Treatment Plan and medications will be reviewed by the Primary Care Team for any contraindications. Respiratory Care Treatment Plan Pulmonary Volume Expansion Therapy: Incentive Spirometry PRN to prevent or treat alveolar consolidation and atelectasis. The patient will be re-evaluated: No re-evaluation needed. Indications for treatment met. The Triage Level is: (Assessment Score = 0 - 5) Level 5. Triage Level Definitions: Level 1 Severe Respiratory/Airway Compromise Level 2 Moderate Respiratory/Airway Compromise or high risk for pulmonary complications Level 3 Mild Respiratory/Airway Compromise or moderate risk for pulmonary complications Level 4 Episodic Respiratory/Airway Compromise or low risk for pulmonary complications Level 5 No Respiratory/Airway Compromise Triage 1 Triage 2 Triage 3 Triage 4 Triage 5 greater than 20 16 - 20 11 - 15 6 - 10 0 - 5 Medical Record Assessment Clinical Findings Pulmonary Status: 1 - Smoking less than 1 pack/day or quit less than 5 years ago Surgical Status: 0 - No Surgical History Chest X-Ray: 0 - Not Performed or performed greater than 3 days ago Assessment Score: 1 Patient Assessment Clinical Findings Respiratory Pattern: 0 - RR 12 - 20; Patient only gets breathless with strenuous exercise. Breath Sounds: 2 - Diminished bilaterally Cough Effectiveness: 0 - Strong non-productive Sputum Production: 0 - No sputum production Level of Activity: 2 - Temporarily non-ambulatory O2 needed to keep SpO2 greater than or equal to 92%: 0 - Room Air Assessment Score: 4 Total Assessment Score: 5 Breath Sounds: Inspiratory and expiratory diminished bilaterally. Cough and Sputum: An effective cough produced no sputum. CXR: Not performed. Vital Signs: Resp: 20 (01/16/242134) Pulse: 76 (01/16/242134) Temp: 36.5 C (97.7 F) (01/16/242134) BP: 157/88 (01/16/242134) SpO2: 93 % (01/16/242134) PFT: Minimal Predicted IC: 0.93 L. Inspiratory capacity: 2 L. Primary Service: Neurosurgery. 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 * ED Plugging Machine Operator Note - Lety Guadalupe RN - 01/16/2024 9:10 PM EDT Hand-Off - Nurse Communication Note Name: Mariano Guillen Location: Date: 01/16/2024 Time: 9:10 PM Sending to: [email or web address] Safety Concerns: None Allergies: Patient has no known allergies. Code Status: Not on file Isolation: None Isolation flowsheet: Special Needs: Special Needs comments: Attention to: carmina parker rn Report from: Lety Guadalupe RN Phone extension: [phone] Patient arriving via: Stretcher Reason for SBAR handoff: Admission Situation/Background Patient transferred from [facility] after having RLE weakness for x24 hrs which led him to their ER. [facility] found mass in L parietal lobe and sent here for neurosurg reccs. MRI completed awaiting post result recommendation from neurosurg. Aox4. Admission date: 01/16/2024 Patient Service: Neurosurgery [[id number]] Attending Provider: Joshua Miller MD Admitting diagnosis: Right parietal lobe mass Chief Complaint: Numbness (R arm/leg) and Abnormal Test Results (Abnormal CT Head) Problem list: Active Problems: Brain mass Cerebral edema (HCC) Neoplasm causing mass effect and brain compression on adjacent structures (HCC) Resolved Problems: * No resolved hospital problems. * Level of Care: Med Surg [3] Assessment Vital Signs: BP: 146/97 (01/16/241999) Temp: 36.4 C (97.5 F) (01/16/241227) Pulse: 106 (01/16/241999) Resp: 25 (01/16/241999) SpO2: 94 % (01/16/241999) Weight: 117.4 kg (258 lb 13.1 oz) (01/16/241227) Fall Scale: Fall Score: 45 (01/16/241199) Fall Interventions: Yellow armband applied/intact and on patient;Bed alarm on;Floor free of clutter;Non-skid foot covering on (01/16/241199) Neurological: Carmen Coma Scale - For patients greater than two years old Eyes Open: Spontaneous (01/16/241899) Best Verbal Response: Verbally appropriate for age (01/16/241899) Best Motor Response: Obeys commands appropriate for age (01/16/241899) Coma Score: 15 (01/16/241899) Additional Neurological Information: aox4 Respiratory: Respiratory WNL: WNL- within normal limits (01/16/241227) Oxygen therapy/ Mechanical vent Supplemental O2 Delivery: Room Air, None (01/16/241999) Additional Respiratory Information: Cardiac: Cardiovascular WNL: WNL - within normal limits (01/16/241227) Rhythm: Regular;NSR (01/16/241227) Extremities: - Sensation;Right;Upper;Lower (01/16/241227) Additional Cardiac Information: GI/: Abdomen: Soft;Non-distended;Non-tender (01/16/241227) Additional GI/ Information: Integumentary: Additional Integumentary Information: C-Diff: Restraints: No orders of the defined types were placed in this encounter. Lines: Labs: Labs This Encounter - No data to display Diet: No orders of the defined types were placed in this encounter. Additional Diet Information: Intake and Output: No intake or output data in the 24 hours ending 01/16/242109 Patient Belongings and Home Medications Recommendations/Follow up Goals/Plan of Care: neurosurg reccs following MRI results, neuro checks Consults not completed: none at time of entry Anticipated tests/studies/procedures: see h/p Medication Reconcilliation completed for this Admission? Yes * Medical Necessity - Milana Schmidt RN - 01/16/2024 9:08 PM EDT AdmissionCare Guideline: Neurology - INPT, Inpatient Based on the indications selected for the patient, the bed status of Inpatient was determined to beMET The following indications were selected as present at the time of evaluation of the patient: - Clinical Indications for Admission to Inpatient Care - Hospital admission is needed for appropriate care of the patient because of 1 or more of the following: - Intracranial mass or process (eg, edema) causing acute neurologic signs or symptoms (eg, Altered mental status, focal neurologic finding) Additional Information: new onset numbness causing a presentation at the local ED, CT head showing a left parieto-occipitalmass with surrounding vasogenic edema causing local mass effect concerning for an underlying lesion AdmissionCare documentation entered by: Milana Schmidt [facility] [employer] ([employer] 28th edition, Copyright 2023 [facility] [employer] All Rights Reserved. [id number]:08:15-04:00 Solely for purpose of utilization review and payment; not a diagnostic tool Associated attestation - Joshua Miller MD - 01/17/2024 4:53 PM EDT Agree with above * Progress Notes - Non-Billable - Alexey Oscar DO - 01/16/2024 4:30 PM EDT Mariano Guillen was signed out to Almita Oscar DO from Jim Segura DO at 4:30 PM. Vital Signs | ED Orders | ED Results Situation & Background: 33-year-old male with a history of type 2 diabetes, obstructive sleep apnea, presenting to the ED as a transfer from [facility] for evaluation of intracranial mass. Symptoms started yesterday with right lower extremity numbness. Symptoms progressed to right upper extremity numbness this morning. Patient was assessed at [facility] and was noted to have mass lesion in the high left parietal lobe measuring 4 x 2 cm in axial dimension. Associated surrounding edema with effacement of overlying cortical sulci. No [id number] midline shift. Was given Decadron 10 mg prior to transfer. Patient describes current symptoms as walking while being drunk. Pending Tests/Imaging: MRI brain Assessment: Mass lesion Recommendations: Disposition pending NSGY evaluation Potential Issues: Decompensation ED Course as of 01/17/24 0027 SunJan 16, [address] Chest/Abdomen/Pelvis with IV Contrast without Oral Contrast No acute pathology [GK] 1652 I assumed care of this patient at this time. [VT] 1817 I discussed the results of the CT and MRI with the patient. I discussed that we are currently awaiting Neurosurgery recommendations on admission and further plan. [VT] ED Course User Index [GK] Jim Segura DO [VT] Alexey Oscar DO Clinical Impressions Right parietal lobe mass Disposition Admitted. Admission Order Ordered Status . 01/16/242102 Admit for Inpatient Services (incl ZPO) ONCE Completed Almita Oscar DO documented in this encounter Plan of Treatment Upcoming Encounters Date Type Department Care Team (Latest Contact Info) Description 01/22/2024 10:09 AM EDT Hospital Encounter [place] [facility] [address] [place] [address] Neo Lopez III, MD [address], [place] [id number] 01/22/2024 10:09 AM EDT - 01/22/2024 4:07 PM EDT Surgery OR [facility] [address] [place] [id number] Neo Lopez III, MD [address], [place] [id number] CRANIOTOMY BONE FLAP EXCISION BRAIN TUMOR SUPRATENTORIAL 01/24/2024 10:30 AM EDT Scheduled Telephone Neurosurgery, [place] [address] [place] [address] Cesario Nurse Follow Up Phone Call Neurosurg [address] [place] [address] 01/30/2024 1:00 PM EST Office Visit Family [facility] [address] [place] [address] Beverly Gonzales CRNP [address] [place] [address] 02/05/2024 9:20 AM EST Office Visit Neurosurgery [place] [address] [place] [address] Lorenzo Vallejo IV, PA-C [address] [place] [address] Scheduled Procedures Name Priority Associated Diagnoses Date/Ti [...] Procedure Name Priority Date/Time Associated Diagnosis Comments CT HEAD/BRAIN WO CONTRAST STAT 01/18/2024 12:06 AM EDT [facility] PCR Routine 01/17/2024 11:3 9 AM EDT DIFFERENTIAL, AUTOMATED Routine 01/16/20 9:55 PM EDT BASIC METABOLIC PANEL Routine 01/16/2024 9:55 PM EDT CBC Routine 01/16/2024 9:55 PM EDT PT INR Routine 01/16/2024 9:55 PM EDT PHOSPHORUS Routine 01/16/2024 9:55 PM EDT APTT Routine 01/16/2024 9:55 PM EDT CBC Routine 01/16/2024 9:55 PM EDT MAGNESIUM Routine 01/16/2024 9:55 PM EDT MRI NEURO 3-D RECONSTRUCTION STAT 01/16/2024 4:29 PM EDT MRI BRAIN W WO CONTRAST Routine 01/16/20 4:[address] CHEST/ABDOMEN/PELVIS WITH IV CONTRAST WITHOUT ORAL CONTRAST Routine 01/16/2024 1:44 PM EDT Anesthesia of skin documented in this encounter Results * CT HEAD/BRAIN WO CONTRAST (01/18/2024 12:06 AM EDT) Anatomical Region Laterality Modality Head Computed Tomogra phy 01/18/2024 7:27 AM EDT Impressions 01/18/2024 7:25 AM EDT IMPRESSION: Unchanged hyperattenuating mass in the left frontoparietal region, compatible with neoplasm. Similar associated edema and mild mass effect. Narrative 01/18/2024 7:25 AM EDT EXAM: CT HEAD/BRAIN WO CONTRAST-01/18/2024 HISTORY: 53 y/o M, please include brainlab protocol, for OR navigation, no fiducials, please include tip of nose and top of head TECHNIQUE: CT scan of the head performed without intravenous contrast. COMPARISON: Outside CT head 01/16/2024, MR brain 01/16/2024. FINDINGS: Heterogeneous hyperattenuating mass in the left frontoparietal region, epicenter in the parietal lobe, measuring 1.9 x 4.4 x 3.5 cm, not significantly changed. Similar surrounding vasogenic edema and mass effect with effacement of sulci and minimal rightward midline shift, measuring 1-2 mm. The left lateral ventricle is partially effaced. No downward herniation. No definite acute intracranial hemorrhage or recent territorial infarct. No extra-axial fluid collections. No hydrocephalus. Basal cisterns are patent. The orbits are unremarkable. Paranasal sinuses and mastoid air cells are well aerated. The calvarium is intact. Procedure Note Prasad Patel MD - 01/18/2024 EXAM: CT HEAD/BRAIN WO CONTRAST-01/18/2024 HISTORY: 53 y/o M, please include brainlab protocol, for OR navigation, nofiducials, please include tip of nose and top of head TECHNIQUE: CT scan of the head performed without intravenous contrast. COMPARISON: Outside CT head 01/16/2024, MR brain 01/16/2024. FINDINGS: Heterogeneous hyperattenuating mass in the left frontoparietal region,epicenter in the parietal lobe, measuring 1.9 x 4.4 x 3.5 cm, notsignificantly changed. Similar surrounding vasogenic edema and masseffect with effacement of sulci and minimal rightward midline shift,measuring 1-2 mm. The left lateral ventricle is partially effaced. Nodownward herniation. No definite acute intracranial hemorrhage or recent territorial infarct. No extra-axial fluid collections. No hydrocephalus. Basal cisterns arepatent. The orbits are unremarkable. Paranasal sinuses and mastoid air cells arewell aerated. The calvarium is intact. IMPRESSION IMPRESSION: Unchanged hyperattenuating mass in the left frontoparietal region,compatible with neoplasm. Similar associated edema and mild masseffect. Elijah Nelson MD RAD CT * (ABNORMAL) [facility] PCR (01/17/2024 11:39 AM EDT) Pathologist [facility] MRSA PCR Result Indetermin ate. Repeat testing recommende d.(A) Negative 01/17/2024 1:21 PM EDT LABORATORY [facility] Staphylococcus aureus PCR Result Indetermin ate. Repeat testing recommende d.(A) Negative 01/17/2024 1:21 PM EDT LABORATORY [facility] Upper Respiratory Swab of internal nose / Unknown Non-blood Collection / Unknown 01/17/2024 11:39 AM EDT 01/17/2024 11:46 AM EDT Elijah Nelson MD LAB MICRO - GENERAL ORDERABLES LAB[facility]ATORY [facility] [address] [place] [address] * (ABNORMAL) DIFFERENTIAL, AUTOMATED (01/16/2024 9:55 PM EDT) Pathologist [facility] WBC 13.27(H) 4.00 - 10.80 K/uL 01/16/2024 10:08 PM EDT LAB[facility]ATORY [facility] Neutrophils % 85.5(H) 40.0 - 75.0 % 01/16/2024 10:08 PM EDT LABORATORY [facility] Lymphocytes % 7.9(L) 18.0 - 42.0 % 01/16/2024 10:08 PM EDT LABORATORY [facility] Monocytes % 5.9 1.0 - 11.0 % 01/16/2024 10:08 PM EDT LABORATORY [facility] Eosinophils % 0.0 0.0 - 6.0 % 01/16/2024 10:08 PM EDT LABORATORY [facility] Basophils % 0.2 0.0 - 2.0 % 01/16/2024 10:08 PM EDT LABORATORY [facility] Immature Granulocytes % 0.5 0.0 - 2.0 % 01/16/2024 10:08 PM EDT LABORATORY [facility] Absolute Neutrophils 11.36(H) 1.80 - 7.70 K/uL 01/16/2024 10:08 PM EDT LABORATORY [facility] Absolute Lymphocytes 1.05 1.00 - 4.80 K/ul 01/16/2024 10:08 PM EDT LABORATORY [facility] Absolute Monocytes 0.78 0.00 - 1.10 K/uL 01/16/2024 10:08 PM EDT LABORATORY [facility] Absolute Eosinophils 0.00 0.00 - 0.70 K/uL 01/16/2024 10:08 PM EDT LABORATORY [facility] Absolute Basophils 0.02 0.00 - 0.20 K/uL 01/16/2024 10:08 PM EDT LABORATORY [facility] Absolute Immature Granulocytes 0.06 0.00 - 0.20 K/uL 01/16/2024 10:08 PM EDT LABORATORY [facility] Blood Venous blood specimen / Unknown Venipuncture / Unknown 01/16/2024 9:55 PM EDT 01/16/2024 10:00 PM EDT Elijah Nelson MD LAB BLOOD ORDERABLES [facility] [address] [place] [address] * (ABNORMAL) CBC (01/16/2024 9:55 PM EDT) WBC 13.27(H) 4.00 - 10.80 K/uL 01/16/2024 10:08 PM EDT LABORATORY [facility] RBC 5.74 4.50 - 5.25 M/uL 01/16/2024 10:08 PM EDT LABORATORY GM HGB 16.6 14.0 - 16.8 g/dL 01/16/2024 10:08 PM EDT LABORATORY [facility] HCT 48.5(H) 40.0 - 48.4 % 01/16/2024 10:08 PM EDT LABORATORY [facility] MCV 84.5 82.0 - 99.5 fL 01/16/2024 10:08 PM EDT LABORATORY [facility] MCH 28.9 27.0 - 34.0 pg 01/16/2024 10:08 PM EDT LABORATORY GM MCHC 34.2 32.0 - 36.0 g/dL 01/16/2024 10:08 PM EDT LABORATORY GM RDW 13.2 11.5 - 15.5 % 01/16/2024 10:08 PM EDT LABORATORY GM PLT 293 140 - 400 K/uL 01/16/2024 10:08 PM EDT LABORATORY [facility] MPV 10.2 6.6 - 11.1 fL 01/16/2024 10:08 PM EDT LABORATORY GM nRBCs 0 <=0 /100 WBCs 01/16/2024 10:08 PM EDT LABORATORY [facility] Blood Venous blood specimen / Unknown Venipuncture / Unknown 01/16/2024 9:55 PM EDT 01/16/2024 10:00 PM EDT Elijah Nelson MD LAB BLOOD ORDERABLES LABORATORY [facility] [address] [place] [address] * MAGNESIUM (01/16/2024 9:55 PM EDT) Pathologist [facility] Magnesium 2.0 1.5 - 2.6 mg/dL 01/16/2024 10:28 PM EDT LABORATORY [facility] Blood Venous blood specimen / Unknown Venipuncture / Unknown 01/16/2024 9:55 PM EDT 01/16/2024 10:00 PM EDT Elijah Nelson MD LAB BLOOD ORDERABLES Performing Organization Address [facility]/ZIP Co de Phone Number LABORATORY [facility] [address] [place] [address] * PHOSPHORUS (01/16/2024 9:55 PM EDT) Phosphorus 3.2 2.5 - 4.8 mg/dL 01/16/2024 10:28 PM EDT LABORATORY C Blood Venous blood specimen / Unknown Venipuncture / Unknown 01/16/2024 9:55 PM EDT 01/16/2024 10:00 PM EDT Elijah Nelson MD LAB BLOOD ORDERABLES Performing Organization Address [facility] Co de Phone Number LABORATORY [facility] [address] [place] [address] * APTT (01/16/2024 9:55 PM EDT) aPTT 26 21 - 38 seconds 01/16/2024 10:38 PM EDT LABORATORY C Blood Venous blood specimen / Unknown Venipuncture / Unknown 01/16/2024 9:55 PM EDT 01/16/2024 10:00 PM EDT Narrative LABORATORY [facility] - 01/16/2024 10:38 PM EDT Anticoagulation may affect testing. Refer to [employer] Test Catalog for a list of effects. Elijah Nelson MD LAB BLOOD ORDERABLES Performing Organization Address [facility] Co de Phone Number LABORATORY [facility] [address] [place] [address] * PT INR (01/16/2024 9:55 PM EDT) Prothrombin Time 13.4 11.6 - 15.2 seconds 01/16/2024 10:37 PM EDT LABORATORY [facility] INR 1.0 0.8 - 1.2 01/16/2024 10:37 PM EDT LABORATORY [facility] Blood Venous blood specimen / Unknown Venipuncture / Unknown 01/16/2024 9:55 PM EDT 01/16/2024 10:00 PM EDT Narrative LABORATORY [facility] - 01/16/2024 10:37 PM EDT Warfarin Therapy INR: 2.0-3.0 conventional anticoagulation INR: 2.5-3.5 high intensity anticoagulation Elijah Nelson MD LAB BLOOD ORDERABLES Performing Organization Address City/State/[facility] Co de Phone Number LABORATORY [facility] [address] [place] [address] * (ABNORMAL) BASIC METABOLIC PANEL (01/16/2024 9:55 PM EDT) BUN 16 6 - 20 mg/dL 01/16/2024 10:28 PM EDT LABORATORY [facility] CREATININE 0.8 0.6 - 1.2 mg/dL 01/16/2024 10:28 PM EDT LABORATORY [facility] EGFR >90 >=60 mL/min 01/16/2024 10:28 PM EDT LABORATORY C Comment:eGFR is calculated b ased on the CKD-EPI 2020 equation. SODIUM 138 135 - 146 mmol/L 01/16/2024 10:28 PM EDT LABORATORY C POTASSIUM 3.6 3.5 - 5.1 mmol/L 01/16/2024 10:28 PM EDT LABORATORY C CHLORIDE 104 98 - 107 mmol/L 01/16/2024 10:28 PM EDT LABORATORY C CO2 22 22 - 32 mmol/L 01/16/2024 10:28 PM EDT LABORATORY C ANION GAP 12 7 - 15 mmol/L 01/16/2024 10:28 PM EDT LABORATORY C GLUCOSE 164(H) 70 - 120 mg/dL 01/16/2024 10:28 PM EDT LABORATORY [facility] CALCIUM 9.3 8.4 - 10.2 mg/dL 01/16/2024 10:28 PM EDT LABORATORY [facility] Blood Venous blood specimen / Unknown Venipuncture / Unknown 01/16/2024 9:55 PM EDT 01/16/2024 10:00 PM EDT Elijah Nelson MD LAB BLOOD ORDERABLES LABORATORY [facility] [address] [place] [address] * MRI NEURO 3-D RECONSTRUCTION (01/16/2024 4:29 PM EDT) Anatomical Region Laterality Modality 3drecon Magnetic Resonan ce 01/16/2024 4:56 PM EDT Impressions 01/16/2024 5:46 PM EDT IMPRESSION 1. Infiltrating enhancing tumor in the medial aspect of the left parietal lobe measuring up to 3.6 cm, most consistent with a high-grade glioma, such as GBM. The tumor extends inferiorly and medially in the splenium of the corpus callosum with possible subependymal spread into the adjacent atrium of the left lateral ventricle. Possible extension of malignancy into one of the left parietal cortical sulci behind the tumor. 2. Moderate peritumoral vasogenic edema with associated local mass effect as described above. Possible invasion of the tumor in the medial aspect of the left corticospinal tract with the tract displaced laterally. Peritumoral edema definitely involves the left corticospinal tract. I have personally reviewed this examination and agree with the resident/fellow physician's interpretation. Narrative 01/16/2024 5:46 PM EDT EXAM MRI scan of the brain without and with intravenous contrast as per brain lab protocol and diffusion tensor imaging (DTI) with MR tractography maps - 01/16/2024. HISTORY 53-year-old male with brain lesion seen on outside CT. TECHNIQUE Multi planar multi sequential magnetic resonance imaging of the brain was performed before and after uneventful intravenous administration of gadolinium containing contrast as per brain lab protocol. Diffusion tensor imaging (DTI) of the brain was obtained. Color coded white matter tractography maps were generated in 3 orthogonal planes on the dedicated software. COMPARISON None. FINDINGS There is an infiltrating enhancing mass in the left medial parietal lobe, which extends inferiorly and medially into the left side of the splenium of the corpus callosum. The tumor abuts the surface of the atrium of the left lateral ventricle with possible subependymal spread of malignancy. A curvilinear enhancement behind the tumor may indicate infiltration of malignancy into the sulcus. Overall, the tumor measures approximately 3.6 x 1.7 x 3.6 cm in the anteroposterior, transverse, and craniocaudal dimensions and in conjunction with moderate surrounding vasogenic edema is producing local mass effect with effacement of the surrounding cortical sulci and impingement of the posterior aspect of the left lateral ventricle. The tumor is causing distortion and lateral displacement of the left corticospinal tract with possible infiltration of the medial aspect of the tract while peritumoral edema is definitely involving the corticospinal tract. The remainder of the brain demonstrates normal morphology, volume, and signal intensity without additional evidence of intracranial space-occupying lesion, edema, hemorrhage, mass effect, midline shift, hydrocephalus, or extra-axial fluid collection. The midline structures, including the pituitary gland, corpus callosum, brainstem, pineal region, and craniocervical junction are unremarkable. No restricted diffusion is identified to suspect acute ischemia. Expected flow voids are maintained in the main intracranial vessels. No calvarial abnormalities are detected. The intraorbital contents are within normal limits. The paranasal sinuses and mastoid air cells are clear and well aerated. Procedure Note Valdez Payton MD - 01/16/2024 EXAM MRI scan of the brain without and with intravenous contrast as per brainlab protocol and diffusion tensor imaging (DTI) with MR tractography maps- 01/16/2024. HISTORY 53-year-old male with brain lesion seen on outside CT. TECHNIQUE Multi planar multi sequential magnetic resonance imaging of the brain wasperformed before and after uneventful intravenous administration ofgadolinium containing contrast as per brain lab protocol. Diffusiontensor imaging (DTI) of the brain was obtained. Color coded white mattertractography maps were generated in 3 orthogonal planes on the dedicatedsoftware. COMPARISON None. FINDINGS There is an infiltrating enhancing mass in the left medial parietal lobe,which extends inferiorly and medially into the left side of the spleniumof the corpus callosum. The tumor abuts the surface of the atrium of theleft lateral ventricle with possible subependymal spread of malignancy. Acurvilinear enhancement behind the tumor may indicate infiltration ofmalignancy into the sulcus. Overall, the tumor measures approximately 3.6x 1.7 x 3.6 cm in the anteroposterior, transverse, and craniocaudaldimensions and in conjunction with moderate surrounding vasogenic edema isproducing local mass effect with effacement of the surrounding corticalsulci and impingement of the posterior aspect of the left lateralventricle. The tumor is causing distortion and lateral displacement ofthe left corticospinal tract with possible infiltration of the medialaspect of the tract while peritumoral edema is definitely involving thecorticospinal tract. The remainder of the brain demonstrates normal morphology, volume, andsignal intensity without additional evidence of intracranialspace-occupying lesion, edema, hemorrhage, mass effect, midline shift,hydrocephalus, or extra-axial fluid collection. The midline structures,including the pituitary gland, corpus callosum, brainstem, pineal region,and craniocervical junction are unremarkable. No restricted diffusion isidentified to suspect acute ischemia. Expected flow voids are maintainedin the main intracranial vessels. No calvarial abnormalities aredetected. The intraorbital contents are within normal limits. Theparanasal sinuses and mastoid air cells are clear and well aerated. IMPRESSION IMPRESSION 1. Infiltrating enhancing tumor in the medial aspect of the left parietallobe measuring up to 3.6 cm, most consistent with a high-grade glioma,such as GBM. The tumor extends inferiorly and medially in the splenium ofthe corpus callosum with possible subependymal spread into the adjacentatrium of the left lateral ventricle. Possible extension of malignancyinto one of the left parietal cortical sulci behind the tumor. 2. Moderate peritumoral vasogenic edema with associated local mass effectas described above. Possible invasion of the tumor in the medial aspectof the left corticospinal tract with the tract displaced laterally.Peritumoral edema definitely involves the left corticospinal tract. I have personally reviewed this examination and agree with the resident/fellow physician's interpretation. Edison Leon PA-C RAD MRI-M RA * MRI BRAIN W WO CONTRAST (01/16/2024 4:29 PM EDT) Anatomical Region Laterality Modality Neuro, Head Magnetic Resonan ce 01/16/2024 4:56 PM EDT Impressions 01/16/2024 5:46 PM EDT IMPRESSION 1. Infiltrating enhancing tumor in the medial aspect of the left parietal lobe measuring up to 3.6 cm, most consistent with a high-grade glioma, such as GBM. The tumor extends inferiorly and medially in the splenium of the corpus callosum with possible subependymal spread into the adjacent atrium of the left lateral ventricle. Possible extension of malignancy into one of the left parietal cortical sulci behind the tumor. 2. Moderate peritumoral vasogenic edema with associated local mass effect as described above. Possible invasion of the tumor in the medial aspect of the left corticospinal tract with the tract displaced laterally. Peritumoral edema definitely involves the left corticospinal tract. I have personally reviewed this examination and agree with the resident/fellow physician's interpretation. Narrative 01/16/2024 5:46 PM EDT EXAM MRI scan of the brain without and with intravenous contrast as per brain lab protocol and diffusion tensor imaging (DTI) with MR tractography maps - 01/16/2024. HISTORY 53-year-old male with brain lesion seen on outside CT. TECHNIQUE Multi planar multi sequential magnetic resonance imaging of the brain was performed before and after uneventful intravenous administration of gadolinium containing contrast as per brain lab protocol. Diffusion tensor imaging (DTI) of the brain was obtained. Color coded white matter tractography maps were generated in 3 orthogonal planes on the dedicated software. COMPARISON None. FINDINGS There is an infiltrating enhancing mass in the left medial parietal lobe, which extends inferiorly and medially into the left side of the splenium of the corpus callosum. The tumor abuts the surface of the atrium of the left lateral ventricle with possible subependymal spread of malignancy. A curvilinear enhancement behind the tumor may indicate infiltration of malignancy into the sulcus. Overall, the tumor measures approximately 3.6 x 1.7 x 3.6 cm in the anteroposterior, transverse, and craniocaudal dimensions and in conjunction with moderate surrounding vasogenic edema is producing local mass effect with effacement of the surrounding cortical sulci and impingement of the posterior aspect of the left lateral ventricle. The tumor is causing distortion and lateral displacement of the left corticospinal tract with possible infiltration of the medial aspect of the tract while peritumoral edema is definitely involving the corticospinal tract. The remainder of the brain demonstrates normal morphology, volume, and signal intensity without additional evidence of intracranial space-occupying lesion, edema, hemorrhage, mass effect, midline shift, hydrocephalus, or extra-axial fluid collection. The midline structures, including the pituitary gland, corpus callosum, brainstem, pineal region, and craniocervical junction are unremarkable. No restricted diffusion is identified to suspect acute ischemia. Expected flow voids are maintained in the main intracranial vessels. No calvarial abnormalities are detected. The intraorbital contents are within normal limits. The paranasal sinuses and mastoid air cells are clear and well aerated. Procedure Note Valdez Payton MD - 01/16/2024 EXAM MRI scan of the brain without and with intravenous contrast as per brainlab protocol and diffusion tensor imaging (DTI) with MR tractography maps- 01/16/2024. HISTORY 53-year-old male with brain lesion seen on outside CT. TECHNIQUE Multi planar multi sequential magnetic resonance imaging of the brain wasperformed before and after uneventful intravenous administration ofgadolinium containing contrast as per brain lab protocol. Diffusiontensor imaging (DTI) of the brain was obtained. Color coded white mattertractography maps were generated in 3 orthogonal planes on the dedicatedsoftware. COMPARISON None. FINDINGS There is an infiltrating enhancing mass in the left medial parietal lobe,which extends inferiorly and medially into the left side of the spleniumof the corpus callosum. The tumor abuts the surface of the atrium of theleft lateral ventricle with possible subependymal spread of malignancy. Acurvilinear enhancement behind the tumor may indicate infiltration ofmalignancy into the sulcus. Overall, the tumor measures approximately 3.6x 1.7 x 3.6 cm in the anteroposterior, transverse, and craniocaudaldimensions and in conjunction with moderate surrounding vasogenic edema isproducing local mass effect with effacement of the surrounding corticalsulci and impingement of the posterior aspect of the left lateralventricle. The tumor is causing distortion and lateral displacement ofthe left corticospinal tract with possible infiltration of the medialaspect of the tract while peritumoral edema is definitely involving thecorticospinal tract. The remainder of the brain demonstrates normal morphology, volume, andsignal intensity without additional evidence of intracranialspace-occupying lesion, edema, hemorrhage, mass effect, midline shift,hydrocephalus, or extra-axial fluid collection. The midline structures,including the pituitary gland, corpus callosum, brainstem, pineal region,and craniocervical junction are unremarkable. No restricted diffusion isidentified to suspect acute ischemia. Expected flow voids are maintainedin the main intracranial vessels. No calvarial abnormalities aredetected. The intraorbital contents are within normal limits. Theparanasal sinuses and mastoid air cells are clear and well aerated. IMPRESSION IMPRESSION 1. Infiltrating enhancing tumor in the medial aspect of the left parietallobe measuring up to 3.6 cm, most consistent with a high-grade glioma,such as GBM. The tumor extends inferiorly and medially in the splenium ofthe corpus callosum with possible subependymal spread into the adjacentatrium of the left lateral ventricle. Possible extension of malignancyinto one of the left parietal cortical sulci behind the tumor. 2. Moderate peritumoral vasogenic edema with associated local mass effectas described above. Possible invasion of the tumor in the medial aspectof the left corticospinal tract with the tract displaced laterally.Peritumoral edema definitely involves the left corticospinal tract. I have personally reviewed this examination and agree with the resident/fellow physician's interpretation. Edison Leon PA-Artie RAD MRI-M RA * CT CHEST/ABDOMEN/PELVIS WITH IV CONTRAST WITHOUT ORAL CONTRAST (01/16/2024 1:44 PM EDT) Anatomical Region Laterality Modality Body, Chest, Abdomen, Pelvis, Cardio Computed Tomography 01/16/2024 2:21 PM EDT Impressions 01/16/2024 2:19 PM EDT IMPRESSION No findings to explain the patient's symptoms. Narrative 01/16/2024 2:19 PM EDT EXAM EXAM: CT CHEST/ABDOMEN/PELVIS WITH IV CONTRAST WITHOUT ORAL CONTRAST DATE TIME: 01/16/2024 - 01/16/2024 1:44 pm TECHNIQUE Oral Contrast: Oral contrast was not administered. IV Contrast: IV contrast was used. Chest: with intravenous contrast Abdomen/Pelvis: with intravenous contrast HISTORY Right upper and lower extremity numbness COMPARISON None FINDINGS CHEST: LINES AND DEVICES: None. LUNGS: There are a few sub 4 mm nodules, which likely represent granulomas and lymph nodes. No suspicious nodules or infiltrates are seen. LARGE AIRWAYS: Within normal limits. PLEURA: No pleural effusions. VESSELS: Within normal limits. HEART: Normal size. No pericardial effusion. MEDIASTINUM AND KANDY: Within normal limits. CHEST WALL/SOFT TISSUES: Within normal limits. BONES: Degenerative changes. ABDOMEN/PELVIS: LINES AND DEVICES: None. LIVER: Steatosis is noted. No focal lesions are seen. BILE DUCTS: Normal in caliber. GALLBLADDER: No calcified stones. PANCREAS: Within normal limits. SPLEEN: There is mild splenomegaly, measuring approximately 13.5 cm. ADRENALS: Within normal limits. KIDNEYS/URETERS: Within normal limits. BLADDER: Within normal limits. BOWEL: Normal in caliber with no appreciable abnormal thickening. The appendix is within normal limits. There appear to be multiple sigmoid diverticula, without evidence of diverticulitis. LYMPH NODES: Within normal limits. VESSELS: Within normal limits. REPRODUCTIVE ORGANS: Within normal limits. PERITONEUM/RETROPERITONEUM: No ascites or peritoneal disease. ABDOMINAL WALL/SOFT TISSUES: Within normal limits. BONES: Degenerative changes. Procedure Note Keith Barbour MD - 01/16/2024 EXAM EXAM: CT CHEST/ABDOMEN/PELVIS WITH IV CONTRAST WITHOUT ORAL CONTRAST DATE TIME: 01/16/2024 - 01/16/2024 1:44 pm TECHNIQUE Oral Contrast: Oral contrast was not administered. IV Contrast: IV contrast was used. Chest: with intravenous contrast Abdomen/Pelvis: with intravenous contrast HISTORY Right upper and lower extremity numbness COMPARISON None FINDINGS CHEST: LINES AND DEVICES: None. LUNGS: There are a few sub 4 mm nodules, which likely represent granulomasand lymph nodes. No suspicious nodules or infiltrates are seen. LARGE AIRWAYS: Within normal limits. PLEURA: No pleural effusions. VESSELS: Within normal limits. HEART: Normal size. No pericardial effusion. MEDIASTINUM AND KANDY: Within normal limits. CHEST WALL/SOFT TISSUES: Within normal limits. BONES: Degenerative changes. ABDOMEN/PELVIS: LINES AND DEVICES: None. LIVER: Steatosis is noted. No focal lesions are seen. BILE DUCTS: Normal in caliber. GALLBLADDER: No calcified stones. PANCREAS: Within normal limits. SPLEEN: There is mild splenomegaly, measuring approximately 13.5 cm. ADRENALS: Within normal limits. KIDNEYS/URETERS: Within normal limits. BLADDER: Within normal limits. BOWEL: Normal in caliber with no appreciable abnormal thickening. Theappendix is within normal limits. There appear to be multiple sigmoiddiverticula, without evidence of diverticulitis. LYMPH NODES: Within normal limits. VESSELS: Within normal limits. REPRODUCTIVE ORGANS: Within normal limits. PERITONEUM/RETROPERITONEUM: No ascites or peritoneal disease. ABDOMINAL WALL/SOFT TISSUES: Within normal limits. BONES: Degenerative changes. IMPRESSION IMPRESSION No findings to explain the patient's symptoms. [facility] RAD CT documented in this encounter Visit Diagnoses Diagnosis Right parietal lobe mass- Primary Unspecified condition of brain Anesthesia of skin Disturbance of skin sensation Brain mass Unspecified condition of brain Cerebral edema (HCC) Cerebral edema Neoplasm causing mass effect and brain compression on adjacent structures (HCC) Brain compression (HCC) Compression of brain Morbid obesity (HCC) Morbid obesity Severe obstructive sleep apnea Obstructive sleep apnea (adult) (pediatric) Essential hypertension Unspecified essential hypertension Type 2 diabetes mellitus without complication, without long-term current use of insulin (HCC) Fatty liver Other chronic nonalcoholic liver disease Tobacco use disorder Malignant neoplasm of parietal lobe (HCC)- Primary Malignant neoplasm of parietal lobe of brain Malignant neoplasm of parietal lobe (HCC) Malignant neoplasm of parietal lobe of brain documented in this encounter Administered Medications Inactive Administered Medications - up to 3 most recent administrations Medication Order MAR Action Action Date Dose Rate Site Acetaminophen (Tylenol) tab 650 mg 650 mg, Oral, Q6H PRN Pain, Mild, Fever >38C(100.5F), Starting on Sun01/16/24 at 2123, Until Sun01/18/24 at 1624, Maximum of 4 grams (4000 mg) per day., Admission dexAMETHasone (Decadron) tab 2 mg 2 mg, Oral, BID (.AM/PM), First dose on Sun01/24/24 at 0900, Last dose on Sun01/25/24 at 2100, For 2 days dexAMETHasone (Decadron) tab 4 mg 4 mg, Oral, QID(AM/NOON/PM/HS), First dose on Sun01/17/24 at 1800, Last dose on Sun01/19/24 at 1200, For 2 days Given 01/18/2024 11:52 AM EDT 4 mg Given 01/18/2024 4:54 AM EDT 4 mg Given 01/17/2024 8:39 PM EDT 4 mg dexAMETHasone (Decadron) tab 4 mg 4 mg, Oral, TID(AM/NOON/HS), First dose on Sun01/19/24 at 2200, Last dose on Sun01/21/24 at 1200, For 2 days dexAMETHasone (Decadron) tab 4 mg 4 mg, Oral, BID (.AM/PM), First dose on Sun01/22/24 at 0900, Last dose on Sun01/23/24 at 2100, For 2 days Famotidine (Pepcid) tab 20 mg 20 mg, Oral, Q12H, First dose on Sun01/17/24 at 2100, Until Discontinued Given 01/18/2024 8:58 AM EDT 20 mg Given 01/17/2024 8:39 PM EDT 20 mg gadobutrol (Gadavist) inj 11.7 mL 11.7 mL (rounded from 11.74 mL = 0.1 mL/kg 117.4 kg), Intravenous, ONCE, On Sun01/16/24 at 1700, For 1 dose, Radiology Medication Routing (Non-IR) Given 01/16/2024 5:00 PM EDT 11.7 mL hEParin inj 5,000 Units 5,000 Units, Subcutaneous, Q8H, First dose on Sun01/16/24 at 2200, Until Discontinued, Admission Given 01/18/2024 4:54 AM EDT 5,000 Units Abdomen Left Lower Given 01/17/2024 8:39 PM EDT 5,000 Units A bdomen Left Lower Given 01/17/2024 2:32 PM EDT 5,000 Units A bdomen Right Lower Iopamidol (Isovue 370) inj 80 mL 80 mL, Intravenous, ONCE, On Sun01/16/24 at 1415, For 1 dose, Radiology Medication Routing (Non-IR) Given 01/16/2024 2:15 PM EDT 80 mL losartan-hctz 50-12.5 mg per tab (Hyzaar) 1 Tablet 1 Tablet, Oral, Daily(AM), First dose on Sun01/17/24 at 0900, Until Discontinued Given 01/18/2024 8:59 AM EDT 1 T ablet Given 01/17/2024 9:26 AM EDT 1 Tablet metFORMIN ER (Glucophage XR) 1,000 mg 1,000 mg, Oral, BID (.AM/PM), First dose on Sun01/16/24 at 2200, Until Discontinued, METFORMIN SHOULD BE HELD FOR 24 HRS BEFORE AND 48 HRS AFTER PROCEDURES THAT REQUIRE CONTRAST MEDIUM !!!!! Use of Metformin in patients with Low GFR puts the patient at risk for adverse effects. - Please discontinue if GFR is less than 30. - Continue with caution, consider dosage reduction if GFR is between 30-45. - Do not initiate therapy in patients with GFR less than 45 Swallow tablet whole. Do NOT crush, cut or chew tablet. Given 01/18/2024 8:59 AM EDT 1,000 mg Given 01/17/2024 8:39 PM EDT 1,000 mg Given 01/17/2024 9:26 AM EDT 1,000 mg Nicotine (Nicoderm CQ) 14 MG/24HR patch 1 Patch 1 Patch, Transdermal, Daily(AM), First dose on Annika 01/17/24 at 1200, Until Discontinued, Do NOT cut the patch. Remove any Nicotine patches the patient may currently be wearing prior to applying the new patch. Place on clean hairless area. Remove for patient showers. WASTE INFO: Return packaging and waste medication in zip lock bag to pharmacy - [facility] container. Patch Applied 01/18/2024 9:01 AM EDT 1 Patch Arm Right Upper Patch Applied 01/17/2024 11:38 AM EDT 1 Patch Arm Left Upper documented in this encounter Active and Recently Administered Medications Times are shown in EDT. Scheduled Medication Order 01/16/2024 01/17/2024 01/18/2024 dexAMETHasone (Decadron) tab 2 mg(Linked Group 1) 2 mg, Oral, BID (.AM/PM), First dose on Sun01/24/24 at 0900, Last dose on Sun01/25/24 at 2100, For 2 days dexAMETHasone (Decadron) tab 4 mg(Linked Group 1) 4 mg, Oral, QID(AM/NOON/PM/HS), First dose on Sun01/17/24 at 1800, Last dose on Sun01/19/24 at 1200, For 2 days 1735 (Given - Provider: Denita Horn RN)2039 (Given - Provider: SN Keisha) 0454 (Given - Provider: Beth Santana RN)1152 (Given - Provider: Keith Lawson RN) dexAMETHasone (Decadron) tab 4 mg(Linked Group 1) 4 mg, Oral, TID(AM/NOON/HS), First dose on Sun01/19/24 at 2200, Last dose on Sun01/21/24 at 1200, For 2 days dexAMETHasone (Decadron) tab 4 mg(Linked Group 1) 4 mg, Oral, BID (.AM/PM), First dose on Sun01/22/24 at 0900, Last dose on 10/30/24 at 2100, For 2 days Famotidine (Pepcid) tab 20 mg 20 mg, Oral, Q12H, First dose on Sun01/17/24 at 2100, Until Discontinued 2038 (Given - Provider: SN Keisha) 0858 (Given - Provider: Keith Lawson, KARLEE) gadobutrol (Gadavist) inj 11.7 mL (COMPLETED) 11.7 mL (rounded from 11.74 mL = 0.1 mL/kg 117.4 kg), Intravenous, ONCE, On Sun01/16/24 at 1700, For 1 dose, Radiology Medication Routing (Non-IR) 1700 (Given - Provider: Epifanio Camacho, RT (R)) hEParin inj 5,000 Units 5,000 Units, Subcutaneous, Q8H, First dose on Sun01/16/24 at 2200, Until Discontinued, Admission 2200 (Not Given - Provider: Carmina Parker RN - Reason: Refused-Notify Provider) 0520 (Given - Provider: Carmina Parker RN)1432 (Given - Provider: Denita Horn RN)2038 (Given - Provider: SN Keisha) 0454 (Given - Provider: Beth Santana RN) Iopamidol (Isovue 370) inj 80 mL (COMPLETED) 80 mL, Intravenous, ONCE, On Sun01/16/24 at 1415, For 1 dose, Radiology Medication Routing (Non-IR) 1415 (Given - Provider: Richard Pastor, RT) losartan-hctz 50-12.5 mg per tab (Hyzaar) 1 Tablet 1 Tablet, Oral, Daily(AM), First dose on Sun01/17/24 at 0900, Until Discontinued 925 (Given - Provider: Denita Horn RN) 0859 (Given - Provider: Keith Lawson, KARLEE) metFORMIN ER (Glucophage XR) 1,000 mg 1,000 mg, Oral, BID (.AM/PM), First dose on Sun01/16/24 at 2200, Until Discontinued, METFORMIN SHOULD BE HELD FOR 24 HRS BEFORE AND 48 HRS AFTER PROCEDURES THAT REQUIRE CONTRAST MEDIUM !!!!! Use of Metformin in patients with Low GFR puts the patient at risk for adverse effects. - Please discontinue if GFR is less than 30. - Continue with caution, consider dosage reduction if GFR is between 30-45. - Do not initiate therapy in patients with GFR less than 45 Swallow tablet whole. Do NOT crush, cut or chew tablet. 2301 (Given - Provider: Carmina Parker RN) 0926 (Given - Provider: Denita Horn RN)203 (Given - Provider: SN Keisha) 0859 (Given - Provider: Keith Lawson, KARLEE) Nicotine (Nicoderm CQ) 14 MG/24HR patch 1 Patch 1 Patch, Transdermal, Daily(AM), First dose on Annika 01/17/24 at 1200, Until Discontinued, Do NOT cut the patch. Remove any Nicotine patches the patient may currently be wearing prior to applying the new patch. Place on clean hairless area. Remove for patient showers. WASTE INFO: Return packaging and waste medication in zip lock bag to pharmacy - [facility] container. 1138 (Patch Applied - Provider: Denita Horn RN) 0859 (Patch Removed - Provider: Keith Lawson RN)0901 (Patch Applied - Provider: Keith Lawson RN)1224 (Due: Patch Removed - Provider: Discharge, Physician - Comment: Time automatically adjusted from order being discontinued) PRN Medication Order 01/16/2024 01/17/2024 01/18/2024 Acetaminophen (Tylenol) tab 650 mg 650 mg, Oral, Q6H PRN Pain, Mild, Fever >38C(100.5F), Starting on Sun01/16/24 at 2123, Until Sun01/18/24 at 1624, Maximum of 4 grams (4000 mg) per day., Admission Linked Groups Order Group 1: dexAMETHasone (Decadron) tab 4 mgJump to med 4 mg, Oral, QID(AM/NOON/PM/HS), First dose on Annika 01/17/24 at 1800, Last dose on 01/19/24 at 1200, For 2 days Followed by dexAMETHasone (Decadron) tab 4 mgJump to med 4 mg, Oral, TID(AM/NOON/HS), First dose on 01/19/24 at 2200, Last dose on 01/21/24 at 1200, For 2 days Followed by dexAMETHasone (Decadron) tab 4 mgJump to med 4 mg, Oral, BID (.AM/PM), First dose on Sun01/22/24 at 0900, Last dose on Sun01/23/24 at 2100, For 2 days Followed by dexAMETHasone (Decadron) tab 2 mgJump to med 2 mg, Oral, BID (.AM/PM), First dose on Sun01/24/24 at 0900, Last dose on Sun01/25/24 at 2100, For 2 days documented in this encounter Advance Directives * Full Code (Latest Code Status on File) Date Activated Date Inactivated Comments 01/16/2024 9:25 PM 01/18/2024 4:24 PM This order reflects the patients wishes and were consensually agreed upon. Question Answer Comments Discussion of Advance Direct isa occurred with: Not Discussed due to patient's condition Care Teams Salesperson Meats Relationship Specialty Start Date End Date Beverly Gonzales CRNP [address] [place] [id number] PCP - General Nurse Practitioner 04/24/23 documented as of this encounter
--- OUTSIDE RECORDS SUMMARY | 2024-05-06 16:18 | External Medical Summary ---
Author Name Unknown Address Unknown Organization [id number]:[facility] [place] - [address] [facility] [address] Laboratory Report Ordering Provider Test Date Status ISABELLE ALVARADO 01/22/2024 09:10:00 Final Observation Date Value Abnormality Reference (Units ) Status Staphylococcus aureus methicillin resistance SCCmec [Presence] in Nose by POLY with probe detection 01/22/2024 09:10:00 Positive Abnormal Negative Final Methicillin resistant Staphy lococcus aureus detected by PCR (amplified probe). MRSA-This patient may require isolation. Please refer to Infection Control isolation policy. Methicillin susceptible Staphylococcus aureus DNA [Presence] in Specimen by POLY with probe detection 01/22/2024 09:10:00 Positive Abnormal Negative Final Staphylococcus aureus detect ed by PCR (amplified probe). Performing Location [facility] [place] - [address] [facility] [address]
--- OUTSIDE RECORDS SUMMARY | 2024-05-06 16:18 | External Medical Summary | Summary of Care ---
Author Name Unknown Organization [facility] Address [address] [place] [address] Phone [phone] Care Team Providers Care Director Of Strategic Sales Name Role Phone Beverly Gonzales Aurora OCHOA Primary Care Provider Reason for Referral * Evaluate & Treat - Unlimited Visits (Within 10 days (routine)) - Authorized Specialty Diagnoses / Procedures Referred By Erich rodgers Referred To Contact Physical Therapy / Physical Medicine And Rehab Diagnoses Neoplasm causing mass effect and brain compression on adjacent structures (HCC) Cerebral edema (HCC) Brain mass Lorenzo Vallejo IV, PA-C [address] [place] [address] Referral ID Status Reason Start Date Expiration Date Visits Requested Visits Authorized [id number] Authorized Specialty Services Required 4 [phone] Question Answer Referral Priority Within 10 days (routine) Where should this appointment be scheduled? 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] Procedures REMOVE SUPRATENTORIAL BRAIN TUMOR MICROSURGERY ADD-ON CRANIOTOMY BONE FLAP EXCISION BRAIN TUMOR SUPRATENTORIAL MICROSURGICAL SURGERY REQUIRING MICROSCOPE LISTED SEPARATELY Neo Lopez III, MD [address] [place] [address] Or [facility] [address] [place] [address] Referral ID Status Reason Start Date Expiration Date Visits Re quested Visits Authorized [id number] Encounter Details Date Type Department Care Team (Latest Contact Info) Description 01/22/2024 8:18 AM EDT - 01/23/2024 3:50 PM EDT Hospital Encounter [id number] [address]LO[address] [place] [address] Neo Lopez III, MD [address] [place] [address] Discharge Disposition: Home - Self Care Allergies [...] SUBCUTANEOUSLY ONCE A WEEK 2 mL 01/09/20 24 Active Nicotine 14 MG/24HR Transdermal Patch 24 Hour (Nicoderm CQ) Place 1 Patch over 24 hours topically on the skin in the morning. For 28 days. 28 Patch 01/18/20 24 Active Famotidine 20 MG Oral Tablet (Pepcid) Take 1 Tablet by mouth twice per day (morning, before bedtime). 30 Tablet 1 01/18/20 24 Active Acetaminophen 325 MG Oral Tablet (Tylenol) Take 3 Tablets by mouth every 6 hours as needed for Fever >38C(100.5F) or mild pain. 30 Tablet 01/23/20 24 Active oxyCODONE HCl 5 MG Oral Tablet (Oxy IR) Take 1 Tablet by mouth every 4 hours as needed for moderate pain. 30 Tablet 01/23/20 24 Active Ondansetron 4 MG Oral Tablet Disintegrating (Zofran) Place 1 Tablet on tongue and let it dissolve every 6 hours as needed for Nausea or Vomiting. 20 Tablet 01/23/20 24 Active dexAMETHasone 2 MG Oral Tablet (Decadron) Take 2 Tablets by mouth 4 times a day for 3 days, THEN 2 Tablets 3 times a day for 1 day, THEN 2 Tablets 2 times a day for 1 day, THEN 1 Tablet 2 times a day for 1 day, THEN 1 Tablet daily for 1 day. 37 Tablet 01/23/20 24 024 Active Docusate Sodium 100 MG Oral Capsule (Colace) Take 1 Capsule by mouth twice per day (morning, before bedtime). 10 Capsule 01/23/20 Active Sennosides 8.6 MG Oral Tablet (Senokot) Take 2 Tablets by mouth in the morning. 10 Tablet 01/24/20 Active dexAMETHasone 2 MG Oral Tablet (Decadron) Take 2 Tablets by mouth 4 times a day for 1 day, THEN 2 Tablets 3 times a day for 2 days, THEN 2 Tablets 2 times a day for 2 days, THEN 1 Tablet 2 times a day for 2 days. 32 Tablet 01/18/20 24 024 Discontinued documented as of this encounter (statuses [...] CPAP to BIPAP [facility] Morbid obesity 12/18/2014 Overview: Per [...] Sign Reading Time Taken Comments Blood Pressure 138/78 01/23/2024 2:21 PM EDT Pulse 52 01/23/2024 2:21 PM EDT Temperature 37.1 C (98.8 F) 01/23/2024 2:21 PM ED T Respiratory Rate 16 01/23/2024 2:21 PM EDT Oxygen Saturation 97% 01/23/2024 2:21 PM EDT Inhaled Oxygen Concentration - - Weight 118.8 kg (262 lb) 01/22/2024 4:47 PM EDT Height 165.1 cm (5' 5") 01/22/2024 4:47 PM EDT Body Mass Index 43.6 01/22/2024 4:47 PM EDT documented in this encounter Functional [...] No 01/22/2024 documented as of this encounter Discharge Instructions * Discharge Instr - AVS* Lorenzo Vallejo IV, PA-C - 01/23/2024 10:02 AM EDT DISCHARGE INSTRUCTIONS [facility]-[address] [place] [address] Patient Name: Mariano Guillen Discharge Date: 01/23/2024 GENERAL INFORMATION: Date of Your Surgery: 01/22/2024 Your Surgeon's Name: Dr. Neo Lopez III, MD Name of your Surgery: Craniotomy for tumor resection Your Diagnosis: High Grade Glioma FOLLOW-UP APPOINTMENT: - Post-Op Appointment 2 weeks after surgery for wound check and suture/staple removal in Tumor [facility] clinic. - It is also recommend to follow-up with your primary care physician within 2 weeks after surgery. Future Appointments Appt Date/Time Provider Department 01/30/2024 1:00 PM Beverly Gonzales CRNP [facility] 02/05/2024 9:20 AM Lorenzo Vallejo IV, PA-C Neurosurgery, [place] WOUND CARE: - Your cranial incision is closed with non-dissolvable jessica. - Please return to our office 10-14 days after surgery to have jessica removed. - Additional wound care instructions are as follows: - Keep incision clean and dry. - May shower after 72 hours. - Pat incision dry afterwards - Do not submerge incision in water - No hot tubs, baths, or swimming for 4 weeks. INCISION EXPECTATIONS: - Some incisional swelling, bruising, and discomfort are normal. Your incision may be sore for up to 4-6 weeks. - Apply ice for pain ACTIVITY GUIDELINES: - May walk and do stairs as tolerated. - Avoid deep bending forward - No excessive physical activity - No heavy lifting. Do not lift greater than 5-10 pounds (example: 1/2 gallon of milk) for 4 weeks.Further lifting instructions will be discussed at your first post-operative appointment. - You may resume sexual activity when comfortable. - It is recommended to be off narcotics prior to driving. - It is recommended to not drive until comfortable clearing blind spot - No driving until seen and cleared by neurosurgery. DIET: - May resume pre-operative diet MEDICATIONS: If you continue to require pain medications for more than 6 weeks you may be referred to a manufacturing engineer paint or your medical doctor for ongoing management of your pain medications. As signed in your narcotic agreement, we do not fill chronic pain medication required after 6 weeks from surgery Steroid taper with Dexamethasone prescribed at discharge QUESTIONS: - Please call our office if any questions or concerns [phone] - Please call our office or report to the emergency department if: - Fever greater than 102 F - Incision becomes red, swollen, hot, or any drainage is noted. - Any changes in neurological status - weakness, speech difficulties, off balance, visual changes, nausea, vomiting, severe headaches, etc. - Please call with any questions or concerns. Do not smoke or use tobacco products in any way! Review of patient's allergies indicates: No Known Allergies MEDICATION UPDATES AT DISCHARGE CONTINUE taking these medications but follow up with your Primary Care Physician (PCP). INSTRUCTIONS BiPAP every night at bedtime . dexAMETHasone 2 MG Tabs Tablet Commonly known as: Decadron Start taking on: January 18, 2024 Take 2 Tablets by mouth 4 times a day for 1 day, THEN 2 Tablets 3 times a day for 2 days, THEN 2 Tablets 2 times a day for 2 days, THEN 1 Tablet 2 times a day for 2 days. Famotidine 20 MG Tablet Commonly known as: Pepcid Take 1 Tablet by mouth twice per day (morning, before bedtime). GNP Nicotine 14 MG/24HR Patch Generic drug: Nicotine Place 1 Patch over 24 hours topically on the skin in the morning. For 28 days. losartan-hctz 50-12.5 mg per tab 50-12.5 MG per tablet Commonly known as: Hyzaar take 1 AND 1/2 tablets by mouth every morning metFORMIN ER 500 MG Tb24 Commonly known as: Glucophage XR Take 2 tablets by mouth twice daily Mounjaro 2.5 MG/0.5ML Sopn Generic drug: Tirzepatide INJECT 1 SYRINGE SUBCUTANEOUSLY ONCE A WEEK Ventolin HFA 108 (90 Base) MCG/ACT Aers Inhale 2 Puffs by mouth every 4 hours as needed for Cough, Shortness of Breath or Wheezing. Discharge Checklist: Patient has his prescriptions (if applicable). Patient was given medication instructions (if applicable). Patient's Personal Belongings: Patient's Home Medications: Written CHF instructions were given (if applicable). Acknowledgement: I have had these instructions explained to me, was given a copy and had a chance to ask questions. Patient Signature Date & Time: Nurse Signature Date & Time: If the patient is unable to sign: Responsible Adult Date & Time: Relationship to Patient * PLEASE TAKE THIS FORM TO YOUR NEXT VISIT WITH YOUR PRIMARY CARE PHYSICIAN. documented in this encounter H&P Notes * Neo Lopez III, MD - 01/22/2024 9:28 AM EDT HISTORY & PHYSICAL INTERVAL NOTE [address] [address] History and Physical Update: Name: Mariano Guillen Location: OR [facility]/AR Date: 01/22/2024 Time: 9:29 AM DATE OF HISTORY AND PHYSICAL: 01/16/24 BP: 173 mmHg/98 mmHg (01/22/24899) Pulse: 55 (01/22/24899) Resp: 25 (01/22/24899) Temp: 36.61 C (01/22/24899) Temp Summary: Temp Min: 36.6 C (97.9 F) Max: 36.6 C (97.9 F) SpO2: 98 % (01/22/24899) O2 flow rate: Supplemental O2 Delivery: Room Air, None (01/22/24899) Did patient stop anticoagulants? None Heart Exam: regular rate and rhythm Lung Exam: clear to auscultation bilaterally Other Pertinent Physical Exam: R apraxia and weakness I have reviewed the H&P previously performed and examined the patient today. There are no new findings noted. * Callum Hassan MD - 01/21/2024 2:58 PM EDT Neurosurgery H&P "H&P - Neurosurgery [facility]-[address] [address] Name: Mariano Guillen Location: Date: 01/16/2024 Time: 1:14 PM REQUESTING SERVICE: Emergency Medicine REASON FOR CONSULT: "Mass lesion" HPI: Mariano Guillen is a 53 year old, right-handed male with a past medical history significant for HTN, T2DM, obesity, and ELY; presents to [facility] via transfer from an outside hospital. The patient began experiencing RLE numbness last evening which progressed to his RUE earlier this morning. He presented at the outside hospital where medical imaging was completed showing a possible left parieto-occipital lesion with surrounding vasogenic edema causing mass effect. We were contacted by an outside hospital provider and encouraged the transferred to the [facility] ED. Upon arrival the patient was seen [...] 5/5 Triceps 5/5 5/5 Deltoid 5/5 5/5 Carpenter 5/5 5/5 Interosseous 5/5 5/5 Lower Extremity: [...] and pelvis non concerning for mass or tumor" Above note from clinic Associated attestation - Neo Lopez III, MD - 01/22/2024 9:28 AM EDT I saw and evaluated the patient today. I have reviewed the resident/fellow physician note and agree. documented in this encounter Procedure Notes * Gilda Hernandez MD - 01/22/2024 2:29 PM EDT INTRAOPERATIVE NEUROPHYSIOLOGIC MONITORING (IONM) REPORT Date of study: 01/22/2024 Patient name: Mariano Guillen MR#: [id number] : 1970 Age: [age] year old Surgeon: Dr. Lopez Service: [facility] Neurosurgery Monitored in real time by neurophysiologist prof remote >1 case/hr 82639: 2 hours Monitorist/Technologist time: 19 units (15 min/unit) IONM technologist in OR with patient: 1049 Intubation: 1103 Incision: 1203 Completed closing/monitorin PURPOSE FOR MONITORING: Per the operative report, intraoperative neurophysiologic monitoring was performed for: Left parietal craniotomy for tumor resection MONITORING MODALITIES AND EQUIPMENT: Somatosensory evoked responses (SSEPs) were evoked by electrical stimulation of the median nerves at both wrists and the tibial nerves at both ankles. EEG was performed continuously using a double distance bipolar montage according to the standard 10-20 International System of Electrode Placement allowing for adjustment of electrodes to accommodatethe craniotomy incision and draping. EEG was visually analyzed in the following montage: Fp1-T7, T7-O1; Fp1-C3', C3'-O1; Fp2-T8,T8-O2; Fp2-C4' C4'-O2. Transcranial (anodal), direct cortical (anodal), and subcortical (cathodal) short-train electric motor-evoked potentials (TcMEP, dcMEP, scMEP) were performed with subdermal stainless steel recording electrodes in the contralateral (right) trapezius-deltoid (TRAP-DEL), flexor carpi radialis (FCR-FCR), thenar-hypothenar (APB-ADM), quadriceps (QD-QD), tibialis anterior (TA-TA), and abductor hallucis(AH-AH) muscles, and in the ipsilateral (left) APB-ADM, and AH-AH muscles. The OriginGPS stimulator was used. The OriginGPS evoked-potential machine was employed. ANESTHESIA: Anesthesia with propofol, sevoflurane and remifentanil was carried out. No change was made during closing. DESCRIPTION OF THE RECORD: Upper Extremity SSEP baseline postincision values: In response to stimulation of the left upper extremity, N20 was seen at an absolute latency of 21.4 msec. The amplitude of the N20-P22 complex was 0.97 microvolts. In response to stimulation of the right upper extremity, N20 was seen at an absolute latency of 22.1 msec. The amplitude of the N20-P22 complex was 2.83 microvolts. Surgeon was notified that bilateral upper extremity SSEPs were satisfactory for monitoring at baseline. Surgeon acknowledged. Lower Extremity SSEP baseline postincision values: In response to stimulation of the left lower extremity, P40 was seen at an absolute latency of 37.7 msec. The amplitude of the P40-N1 complex was 0.46 microvolts. In response to stimulation of the right lower extremity, P40 was seen at an absolute latency of 39.1 msec. The amplitude of the P40-N1 complex was 1.55 microvolts. Surgeon was notified that bilateral lower extremity SSEPs were satisfactory for monitoring at baseline. Surgeon acknowledged. TcMEP: Constant voltage stimulation was used with stimulus intensity adjusted to avoid co-activation of the ipsilateral side. The surgeon was notified that TcMEPs were elicited from all muscle groups monitored and the response amplitudes were satisfactory for monitoring. Surgeon acknowledged. Throughout the tracing, repetitive tveic-au-ubdz stimulation was carried out to monitor the neuromuscular junction. EEG: Baseline EEG prior to induction showed no focal or lateralized slowing or epileptiform discharges. Central Sulcus Localization via SSEP phase reversal and dcMEP threshold responses: left hemisphericcentral-sulcus localization used a 6-contact strip electrode recorded in bipolar and referential montages with stimulation of the median nerve at the contralateral wrist. Surgeon was advised that theSSEP phase reversal was not clearly identified See the IONM event log in scanned into the electronic medical record for additional details. Subcortical electric motor evoked potentials (scMEP): Left hemispheric subcortical monopolar electric stimulation of motor pathways was performed. Stimulus intensities of 5-10 mA were used to stimulate around the tumor margins. Dr. Lopez was advised and acknowledged the presence or absence of motor response and corresponding stimulus intensity at each selected site. ALERTS: No alerts were required during the surgical procedure. Please refer to the IONM event log scanned into the electronic medical record for additional details. SUMMARY: No significant surgically-related changes were seen in the upper extremity SSEPs. No significant surgically-related changes were seen in the lower extremity SSEPs. No significant surgically-related changes were seen in the TceMEP responses. Left hemispheric central sulcus localization findings as noted above. Left hemispheric subcortical monopolar electric stimulation findings as noted above. No afterdischarges nor seizure activity noted on scalp EEG during electrical stimulation of the brain. No complications secondary to IONM to report. Gilda Hernandez MD OR [facility], OPERATING ROOM [address] [address] documented in this encounter Consult Notes * Dea Peace MSW - 01/23/2024 10:18 AM EDTAssociated Order(s): CARE MANAGEMENT CONSULT IP Please see ancillary notes. CM to continue to follow throughout hospitalization. Thanks * Renee Dela Cruz, PT - 01/23/2024 8:30 AM EDTAssociated Order(s): ADULT PHYSICAL THERAPY CONSULT IP GENERAL EVALUATION - Physical Therapy [address] [address] Name: Mariano Guillen Location: [facility] A472/B Date: 01/23/2024 Time: 829 Mariano Guillen is a/an 53 year old male. Patient Status: Inpatient Insurance: Payor: [email or web address]) Plan: SELECT 500px BS Product Type: *No Product type* Patient Seen: at bedside, nursing cleared patient for therapy Patient Identified By: Name, ID Band and Date Diagnosis: malignant neoplasm of parietal lobe (01/23/24829) Status of treatment: Evaluation completed (01/23/24829) Orders: PT evaluation and treatment;OOB (01/23/24829) Weight Bearing Status: Weight bearing as tolerated (01/23/24829) Precautions: Alarms;Falls;Safety (01/23/24829) Total Treatment Time--free text: 23 (01/23/24829) Past Medical History: Past Medical History: Diagnosis Date Hypertension Morbid obesity (HCC) Sleep apnea Sleep apnea, obstructive Past Surgical History: Past Surgical History: Procedure Laterality Date INFORMATION Left left hand surgery to remove nail from hand Subjective: Pt awake in bed, agreeable to PT. Social History/Disposition Lives with: Spouse;Family (01/23/24829) Assistance available: Yes (01/23/24829) Dwelling type: Multi-story home (01/23/24829) Entry steps: 1 (01/23/24829) Inside steps: 10 - 15 (01/23/24829) Bedroom location: 1st floor (01/23/24829) Bath location: 1st floor full bath (01/23/24829) Prior Level of Function Reported by: Patient (01/23/24829) Ambulation: Ambulatory without device;Ambulatory with device (used cane for last week) (01/23/24829) Ambulatory Device: Cane (01/23/24829) Devices at home: Straight cane;Shower chair;Grab bars (01/23/24829) Observations Consciousness: Alert (01/23/24829) Orientation: Oriented times 4 (01/23/24829) Psychosocial: Patient can communicate basic needs;Patient can converse in a social setting (01/23/24829) Other Findings: Yes (01/23/24829) Findings: Light touch sensation;Coordination (01/23/24829) Light Touch Sensation Results: Intact;LLE;Impaired;RLE (01/23/24829) Coordination Results: Intact;LLE;Impaired;RLE (01/23/24829) Sitting Posture: Forward head;Rounded shoulders (01/23/24829) Standing Posture: Forward head;Rounded shoulders (01/23/24829) Pain: No complaints of pain Range of Motion Range of Motion: WFL (01/23/24829) Strength Assessment Strength Assessment: Deficits noted (01/23/24829) WNL, except: LLE;RLE (01/23/24829) LLE: Hip;Knee;Ankle;5/5 (01/23/24829) RLE: Hip;Ankle;4/5;Knee;4-/5 (01/23/24829) P.T. Bed Mobility Supine-Sit: Supervision (01/23/24829) Transfers Sit-Stand: Supervision (01/23/24829) Stand-Sit: Supervision (01/23/24829) Ambulation: 70 ft with cane and contact guard to Manoj 100 ft with rolling walker and contact guard to supervision Balance Sit (Static): Fair (01/23/24829) Sit (Dynamic): Fair (01/23/24829) Stand (Static): Fair (to fair-) (01/23/24829) Stand (Dynamic): Fair (to poor+) (01/23/24829) Patient and or Family Goal(s): to get well and to return home Patient Education Review of Precautions: Safety;Fall (role of PT) (01/23/24829) Review of Exercises: Verbal Exercises Provided;Pt Demonstrated Exercise (01/23/24829) Safety Awareness: Patient verbalizes insight of current deficits;Patient demonstrates carryover of insight during functional tasks;Patient can communicate basic needs (01/23/24829) Preferred learning method: Combination (01/23/24829) Barriers to learning: Medical Status (01/23/24829) Method of Education: Verbalized to patient;Patient demonstrated task (01/23/24829) Topic of Education: Safety with mobility, Goals/plan of care, Use of assistive device, and Fall prevention Method of Education: Verbal discussion and explanation provided to pt: verbalized understanding andor agreement of this information and demonstrated the exercise and or task Treatment Provided: Gait Training 10 minutes: gait training with rolling walker Evaluation Moderate Complexity 13 minutes - [id number]: Patient was cooperative and pleasant during treatment session. Moderate complexity evaluation performed and 1-2 personal factors or comorbidities were identified that will impact plan of care, including cardiac history, recent surgery, and obesity.Patient presents with limitations in strength, bed mobility, transfers, gait, elevations, balance, endurance, and safety, which will impact plan of care. These limitations will be addressed by the goals set for this patient. Alarm Status Patient positioned in: Chair (01/23/24829) With: Pressure pad alarm intact and functioning and call galvan in reach (cord plugged in) (01/23/24829) Cord plugged into call galvan system. Treatment Status: Treatment at bedside (01/23/24829) Goals: Demonstrate Bed Mobility with: independent Demonstrate Sit to/from Stand and/or Stand Pivot Transfers with: independent Demonstrate Ambulation: least restrictive assistive device, 250 feet, independent Demonstrate Stairclimbing: Number of steps: 1 and modified independent Increase Strength of: R LE by 1 muscle grade Increase Balance: dynamic standing balance to good Increase Safety: with all functional mobility Time Frame: 9-10 visits Assessment: Pt is 53 year old male presenting with malignant neoplasm of parietal lobe. Pt seen on this date for initial evaluation. Prior to admission, pt reports living in 3-story house with 1st floor setup (1 step to enter) with and 2 children who are able to assist if needed. Pt reports ambulating with cane for past 1 week, prior to this no assistive device. During session, pt was cooperative. Upon initial evaluation, pt was able to perform bed mobility with supervision, sit to stand transfers with supervision, and ambulated 70 ft with contact guard to Manoj and cane. Pt was unsteady and needed increased cues for RLE step length/height and R foot placement. Pt was agreeable to gait training with rolling walker. Pt performed additional sit to stand transfers supervision and ambulated 100 ft with rolling walker and contact guard to supervision. Steadiness noted to improve with useof rolling walker, however pt still needing cues at times to keep RLE inside rolling walker and notkick rolling walker with RLE. Following session, pt positioned in chair with alarm and call galvan inreach. Pt presents with deficits in strength, endurance, mobility, ambulation, and balance, all of which are currently negatively impacting pt's quality of life. Pt would continue to benefit from skilled PT services while inpatient at hospital to reach established goals and address deficits. Pt is not safe to return home at this time due to current functional status and R sided deficits. Please consider post-acute care services which may include home health, retirement, outpatient therapy or inpatient rehabilitation. The level of care will be determined in collaboration with patient, family/caregiver and care team members. All needs met. Deficits requiring P.T. treatment needs: Safety;Mobility;Balance;Weakness;Endurance;Lower extremitystrength (01/23/24829) Equipment Needs: Equipment needs: Rolling walker (TBD) (01/23/24829) Treatment Plan: Bed mobility training, Transfer training, Gait training, Elevation training, Strengthening exercises: RLE, Balance activities, and Educate on safety with functional mobility Anticipated Frequency (on eval): (2-5x/week) (01/23/24829) AM PAC Score with Stairs: 17 A portion of this AM-PAC assessment not scored based on functional assessment due; rather clinical decision making utilized based on current findings and/or prior level of function. Please refer to future AM-PAC calculations of functional ability as they become available. * Karime Bales OT - 01/23/2024 8:29 AM EDTAssociated Order(s): ADULT OCCUPATIONAL THERAPY CONSULT IP GENERAL EVALUATION - Occupational Therapy [facility]-[address] [address] Name: Mariano Guillen Location: [facility] A472/B Date: 01/23/2024 Time: 8:29 AM Mariano Guillen is a 53 year old male. 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 (01/23/24828) Status of treatment: Evaluation completed (01/23/24828) Orders: OT evaluation and treatment (01/23/24828) Weight Bearing Status: Weight bearing as tolerated (01/23/24828) Precautions: Alarms;Falls;Safety (01/23/24828) Total Treatment Time: 24 (01/23/24828) Past Medical History: Past Medical History: Diagnosis Date Hypertension Morbid obesity (HCC) Sleep apnea Sleep apnea, obstructive Past Surgical History: Past Surgical History: Procedure Laterality Date INFORMATION Left left hand surgery to remove nail from hand Social History/Disposition Lives with: Spouse;Family (01/23/24828) Assistance available: Yes (01/23/24828) Dwelling type: Multi-story home (01/23/24828) Entry steps: 1 (01/23/24828) Inside steps: 10 - 15 (01/23/24828) Bedroom location: 1st floor (01/23/24828) Bath location: 1st floor full bath (01/23/24828) Prior Level of Function Reported by: Patient (01/23/24828) Ambulation: Ambulatory with device (01/23/24828) Ambulatory Device: (hurry cane) (01/23/24828) Grooming: Independent (01/23/24828) Bathing: Independent (01/23/24828) Dressing: Independent (01/23/24828) Feeding: Independent (01/23/24828) Toileting: Independent (01/23/24828) Meal Prep: Independent (01/23/24828) Homemaking: Independent (01/23/24828) Shopping: Independent (01/23/24828) Medication Management: Independent (01/23/24828) Money Management: Independent (01/23/24828) Occupation/Leisure Skills: Employed (01/23/24828) Driving: Yes (01/23/24828) Durable Medical Equipment at home: Shower chair (hurry cane) (01/23/24828) Subjective: patient was pleasant and cooperative, agreeable to OT evaluation Pain: No complaints of pain Observations Consciousness: Alert (01/23/24828) Orientation: Person;Place;Time;Situation (01/23/24828) Psychosocial: Patient can communicate basic needs;Patient can converse in a social setting (01/23/24828) Sitting posture: Forward head;Rounded shoulders (01/23/24828) Standing posture: Forward head;Rounded shoulders (01/23/24828) Safety awareness: Needs cueing supervision. (01/23/24828) Other Findings Endurance: Good (01/23/24828) Light touch sensation: LUE;RUE;Intact (01/23/24828) Coordination: RUE;Impaired;LUE;Intact (01/23/24828) Current Functional Status: Bilateral Upper Extremity Range of Motion: WNL (01/23/24828) Strength Assessment: Deficits noted (01/23/24828) LUE: 4+/5 (01/23/24828) RUE: Shoulder;4/5;Elbow;Wrist;Grasp;4+/5 (01/23/24828) Self Care Feeding: Modified Independent (01/23/24828) Grooming: Supervision (Please comment) (for drink) (01/23/24828) Toileting: Supervision (Please comment) (for clothing mgmt) (01/23/24828) Dressing Upper Body: Supervision (Please comment) (to jese robe) (01/23/24828) Lower Body: Supervision (Please comment) (to doff and jese slipper socks and jese shorts) () Functional Ambulation Assistive Device: Cane (01/23/24828) Distance in feet:: 70 (01/23/24828) Level of Assistance: Contact Guard (to minimal assist; 100' with rolling walker contact guard to supervision level) (01/23/24828) Bed Mobility Supine-Sit: Supervision (Please comment) (01/23/24828) OT Transfers Sit-Stand: Supervision (Please comment) (01/23/24828) Stand-Sit: Supervision (Please comment) (01/23/24828) Balance Sit (Static): Fair (01/23/24828) Sit (Dynamic): Fair (01/23/24828) Stand (Static): Fair (01/23/24828) Stand (Dynamic): Fair (to Poor+) (01/23/24828) Alarm Status Patient positioned in: Chair (01/23/24828) With: Pressure pad alarm intact and functioning and call galvan in reach Following session patient seated OOB in chair with chair alarm activated and cord plugged into callbell system. (01/23/24828) Patient and Family Goals: to get well and to return home Patient Education Education Topic: Role of OT (01/23/24828) Review of Precautions: Fall;Safety (01/23/24828) Method of Education: Verbalized to patient (01/23/24828) Education Provided to: Patient (01/23/24828) Response to Education: Receptive and agreeable to education (01/23/24828) Barriers to learning: None (01/23/24828) Preferred learning method: Combination (01/23/24828) Treatment Provided: Evaluation Moderate Complexity 24 minutes - 01633: Patient was cooperative and pleasant during treatment session. Moderate complexity evaluation performed and 3-5 activity limitations were identified, including ADL deficit, functional mobility deficit, bed mobility deficit, decreased strength, decreased endurance, and impaired balance. Minimal or moderate modification of the functional task was necessary to complete the evaluation. Deficits Requiring O.T. Treatment: Deficits requiring O.T. treatment needs: ADL/self-care;Balance;Endurance;Functional mobility;Safety;Upper extremity strength;Weakness (01/23/24828) Assessment: Patient is a 53 year old male admitted to [facility] on 01/22/24 with Dx of s/p L craniotomy for resection of parietal brain tumor. Patient lives at home with his spouse and family. Patient was independent prior to admission. Patient has been using a hurry cane for ambulation. Patient with impaired R UE/LE coordination and slowed oppositional digit movements as compared to the L. Patient demonstrates deficits in self-care, functional transfers/ambulation, bed mobility, balance, bilateral UE strength, and activity tolerance. Patient would benefit from continued Occupational Therapy services in order to improve function and maximize independence. Please consider post-acute care services w [facility] may include home health, retirement, outpatient therapy or inpatient rehabilitation. The level of care will be determined in collaboration with patient, family/caregiver and care team members. Goals: Increase Strength of: bilateral UE 1/2 grade above eval Demonstrates sitting Balance at: Good Demonstrates standing Balance at: Fair+ Demonstrates self care at: modified independent with appropriate device PRN Demonstrates Activity Tolerance at 30/30 minutes for functional OT activities Demonstrates Bed Mobility with: modified independent Demonstrates Transfers with: modified independent with appropriate device PRN; supervision for tub/shower transfers Demonstrates Functional Ambulation: Level of Assistance: modified independent with appropriate device PRN Goal Time Frame: 8 visits Treatment Plan: Energy Conservation, Safety, Bed mobility training, Functional Ambulation, Transfertraining, Coordination Tasks, Upper extremity strengthening, Balance activities, ADL training, and Endurance Anticipated Frequency (on eval): 3 to 5 times per week (01/23/24828) AM-PAC Help From Another Person Eating Meals: None (01/23/24828) Help From Another Person Taking Care of Personal Grooming: A little (01/23/24828) Help From Another Person To Put On/Take Off Upper Body Clothing: A little (01/23/24828) Help From Another Person To Put On/Take Off Lower Body Clothing: A little (01/23/24828) Help From Another Person Toileting: A little (01/23/24828) Help From Another Person Bathing: A little (01/23/24828) OT AM-PAC Score: 19 (01/23/24828) OT AM-PAC t-Scale Score: 40.22 (01/23/24828) HLM (Highest Level of Mobility) Goal: Level 7 walk 25 feet or more (01/23/24799) A portion of this AM-PAC assessment not scored based on functional assessment rather clinical decision making utilized based on current findings and/or prior level of function. Please refer to futureAM-PAC calculations of functional ability as they become available. documented in this encounter Nursing Notes * Violeta Vasquez RN - 01/23/2024 8:04 AM EDT I have reviewed and agree with the assessment and documentation of Rocío Alamo RN from [id number]. * Violeta Myers RN - 01/22/2024 5:52 PM EDT Dual Licensed Skin Assessment completed by Violeta Myers RN and Killian Prieto RN. The patient is/has a N/A Skin Breakdown (includes non blanchable erythema): Yes - Surgical/Procedural changes only. * Haylie Guzman NA - 01/22/2024 5:36 PM EDT Post Anesthesia Care Unit Transport Note [address] [address] Dept. Mariano Guillen Transported from [facility] to : A4A Time: 1640 Care of patient transferred to: [place] Transported via: Bed Belongings with Patient: YES Pulse : 60 Temp : 37.0 BP : 146/83 Respirations : 18 Pulse Ox : 96 O2 : room air SCDS: On but not activated/no machine * June Rosenberg RN - 01/22/2024 3:51 PM EDT PERIOP TO IP HANDOFF COMMUNICATION NOTE [address] [address] Name: Mariano Guillen AGE: [age] year old Location: OR [facility]/OR Date: 01/22/2024 Attention to: Violeta Myers Report from: June Rosenberg RN Patient arriving via: Stretcher Time of call: 3:51 PM Phone Ext: [phone] Reason for SBAR (Situation, Background, Assessment, Recommendation) handoff: Admission Sending to: A472-B Emotional/Personal Events & Special Needs: N/A Prescriptions in chart: No Code Status: Full Code Safety Concerns: no safety concerns identified Allergies: Patient has no known allergies. PMH: Past Medical History: Diagnosis Date Hypertension Morbid obesity (HCC) Sleep apnea Sleep apnea, obstructive PSH: Past Surgical History: Procedure Laterality Date INFORMATION Left left hand surgery to remove nail from hand Isolation: Isolation: Procedure: left craniotomy for tumor resection, use of brainlab stereotactic neuronavigation, use of the operative ultrasound with self interpretation, use of neurophysiological monitoring (SSEP/MEP/subcortical stim/phase reversal with strip electrode) Type of Anesthesia: General endotracheal anesthesia Block: N/A IV intake: 1200 mL EBL: OR: 25 mL PACU: 0 mL Urine output: OR resident service coordinator could recall how much urine was drained in OR PACU 0 mL IUBC (Raphael): Incision location: posterior head Dressing location: posterior head Time of last skin assessment: 1513 Pressure injuries or areas of concern: n/a Lines: Peripheral Line Left;Lower 18 Gauge (Active) Status Flushes easily 01/22/24 1530 Tubing Changed No 01/22/24 1530 Phlebitis Scale 0 01/22/24 1530 Infiltration Scale 0 01/22/24 1530 Site Description (Other) Without redness, swelling or drainage 01/22/24 1530 Site Intervention Flushed 01/22/24 1530 Dressing Assessment Dressing clean, dry, and intact 01/22/24 1530 Dressing Intervention None required 01/22/24 1530 Number of days: 0 Peripheral Line Right Hand 18 Gauge (Active) Status Capped/Locked 01/22/24 1530 Tubing Changed N/A 01/22/24 1530 Phlebitis Scale 0 01/22/24 1530 Infiltration Scale 0 01/22/24 1530 Site Description (Other) Without redness, swelling or drainage 01/22/24 1530 Site Intervention Flushed 01/22/24 1530 Dressing Assessment Dressing clean, dry, and intact 01/22/24 1530 Dressing Intervention None required 01/22/241529 Number of days: 0 Arterial Line Right Radial (Active) Status Zeroed and leveled;Continuous flush / Infusion;Good Wave Form;Positive Blood Return Tubing Changed No 01/22/241529 Site Description Without redness, swelling or drainage 01/22/241529 Site Intervention None required 01/22/241529 Dressing Assessment Dressing clean, dry, and intact 01/22/241529 Dressing Intervention None required 01/22/241529 Number of days: 0 Vital Signs: BP: 140/87 (01/22/241544) Temp: 36.5 C (97.7 F) (01/22/241529) Pulse: 58 (01/22/241544) Resp: 16 (01/22/241544) SpO2: 98 % (01/22/241544) O2 flow rate: 10 L/MIN (01/22/24 143) Glucose (Bedside): 129 (01/22/241434) Time of last pain medication: 1524 Med: dilaudid Time of last antibiotic: 1040 Med: vancomycin Time of last antiemetic: 1405 Med: zofran SHAMPOO ASSISTANT: no Drips: no Neurological: Speech: Clear (01/22/241529) Level of Consciousness: Alert (01/22/241529) RUE Motor Strength: 5-Active movement with full resistance (01/22/241529) RLE Motor Strength: 5-Active movement with full resistance (01/22/241529) LUE Motor Strength: 5-Active movement with full resistance (01/22/241529) LLE Motor Strength: 5-Active movement with full resistance (01/22/241529) Right Pupil Size (mm): 3 (01/22/241529) Right Pupil Reaction: Reactive (01/22/241529) Left Pupil Size (mm): 3 (01/22/241529) Left Pupil Reaction: Reactive (01/22/241529) Coma Score: 15 (01/22/241529) Respiratory: Respiratory WNL: WNL- within normal limits (01/22/241529) Oxygen therapy/ Mechanical vent Supplemental O2 Delivery: Room Air, None (01/22/241544) O2 flow rate: 10 L/MIN (01/22/24 1435) Cardiac: Cardiovascular WNL: WNL - within normal limits (01/22/241529) Rhythm: Regular;NSR (01/22/241529) Capillary Refill: 1-2 seconds (01/22/241529) GI: GI WNL: WNL - within normal limits (01/22/241529) : WNL: X - Exceptions to WNL as documented below (01/22/241529) Urine Description: Other-Describe (no urine to assess at this time) (01/22/241529) Due to Void: 2030 Integumentary:Integumentary WNL: X - Exceptions to WNL as documented below (01/22/241529) Skin Description: Dry;Warm (01/22/241529) Skin Color: Flesh Tone (01/22/241529) Skin Variations: Other - Describe (see below) (01/22/241529) Family updated on transfer: yes Additional Assessment Information: n/a * June Rosenberg RN - 01/22/2024 3:13 PM EDT Dual Licensed Skin Assessment completed by June DESIR and Sarah DESIR. The patient is/has a N/A Skin Breakdown (includes non blanchable erythema): Yes - Surgical/Procedural changes only. Posterior head surgical incision; mild amount of serosanguinous drainage on dressing * Awa De Luna RN - 01/22/2024 10:42 AM EDT Dual Licensed Skin Assessment completed by myself and Martha Arzate. The patient is/has a N/A Skin Breakdown (includes non blanchable erythema): No * Terri Veliz RN - 01/21/2024 9:41 AM EDT NO ANESTHESIA EVAL REQUESTED PER CASE DOCUMENTATION. PREOP PATIENT INFORMATION AND EDUCATION: MEDICATION INSTRUCTIONS: The day of surgery/procedure, you may TAKE the following medications with a sip of water up to 2 hours prior to your arrival time: Famotidine Dexamethasone Use Albuterol inhaler if needed, please bring to the hospital with you AVOID / DO NOT TAKE the following medications the evening prior to and morning of surgery/procedure: Metformin STOP taking the following medications the noted number of days prior to surgery/procedure unless otherwise specified by your surgeon: You are prescribed mounjaro, a medication classified as a GLP-1 Agonist. This medication may be associated with delayed gastric emptying (delayed emptying of your stomach content into your intestine). Due to the delay in emptying your stomach you may experience symptoms such as abdominal discomfort/bloating, nausea and/or vomiting. These symptoms can increase your risks of potential complicationsassociated with anesthesia. You will have the opportunity to discuss your symptoms the day of surgery when you will meet your anesthesia team and a plan of care is made. Please follow these recommendations based on whether you are experiencing symptoms or not to reducethe risk of potential complications associated with anesthesia: -You are taking a WEEKLY-dosed GLP-1 agonist HOLD your dose a minimum of 3 days prior to your procedure AND follow a CLEAR LIQUID diet for 24 hours before your procedure. INSTRUCTIONS FOR CLEAR LIQUID DIET 24 HOURS BEFORE YOUR PROCEDURE: -The day before your procedure you may eat a lite breakfast (e.g. toast, cereal), it is recommendedto eat your breakfast no later than 8:00 AM -The day before your procedure after eating breakfast, you MUST follow a clear liquid diet. A clearliquid diet includes water, soda, clear juices (without pulp), black coffee or tea (without milk/cream), jello (without anything added to it) and broth (without anything added to it). -The day of your procedure you may have clear liquids until 3 hours prior to your procedure's arrival time. Please follow surgeon's instructions regarding use of Aspirin, Coumadin, Plavix, Eliquis, and any other blood thinner including NSAIDs (non-steroidal anti- inflammatory drugs, eg, Advil, Ibuprofen, Motrin, Aleve, Naproxen); if you have any questions regarding your anticoagulation therapy please contact your surgeon's clinic. Please verify any proposed stoppage of your anticoagulation therapy with the agent's prescribing provider. 10 days prior to surgery/procedure Stop all Herbal supplements, Green Tea, Turmeric, Melatonin, CBD, THC, etc. Stop all Vitamins (including Vitamin E) 24 hours prior to surgery/procedure DO NOT consume any alcohol. DO NOT use medical marijuana. DO NOT smoke or use tobacco products of any kind after midnight prior to surgery. *Using any of these products may increase your risks of procedural complications. IF IT IS LESS THAN RECOMMENDED STOPPAGE TIME PLEASE STOP AT TIME OF NOTIFICATION. FASTING RECOMMENDATIONS: To reduce risk, it is important for all elective surgery patients to follow the specific fasting guidelines listed below. If you have received more stringent guidelines, please follow the MOST RESTRICTIVE guidelines that you have been provided. DO NOT EAT after midnight on the night prior to your surgery date. You are allowed to drink clear liquids up to two hours prior to arrival time to the hospital or surgery center. Examples of clear liquids include water, clear fruit juice without pulp, clear carbonated beverages, clear tea, and black coffee. Any drinks given by your surgical service take as directed. THE DAY BEFORE YOUR SURGERY: -Drink plenty of fluid the day before your surgery. Contact your surgeon's office if you develop any of the following within 2 weeks of surgery: A cold Infection Fever Shingles Chicken pox or exposure to chicken pox Open areas such as scrapes, cuts, rodriguez or other skin conditions Rashes GENERAL INSTRUCTIONS FOR PREPARING FOR SURGERY: BATHING INSTRUCTIONS: Bathe the evening prior to and the morning of surgery/procedure. Cleanse your body using ONLY anti-bacterial soap (eg, Dial, Safeguard) or any specific soap/cleansers and instructions provided by your surgeon (eg, Chlorhexidine). -You should brush your teeth the morning of surgery. Do NOT apply any lotions, powders, sprays, creams, oils, make-up, or deodorants after bathing. No hairspray, or nail [place] on fingers or toes. Day of surgery/procedure do not use tampons. If you wear contacts wear your eyeglasses if available otherwise bring your contact supplies with you to remove them prior to your surgery/procedure. If you wear glasses or dentures, please bring cases in which you can store them during your surgery. Please remove all piercings and jewelry and leave them at home. Wear comfortable and loose clothing. -Please leave all valuables at home. -If you use a CPAP and are staying overnight, please bring your mask and tubing with you to the hospital. -If you use an assistive mobility device (walker, cane, etc), please label it with your name and bring to hospital. -An escort emergency vehicle driver is required if you are being discharged the same day of the surgery. You should have a responsible adult over the age of 18 [address] drive you home. This person should be present with youin the hospital at the time of discharge and for the first 24 hours after the surgery to support your needs. If you are taking a taxi home, you must have your responsible libertarian accompany you in the taxi ride home at the time of discharge. OR times subject to change. Please check voicemail messages the day/evening before your surgery forany updates. PRE-OP: You will be taken to the pre-op area where your vital signs (blood pressure, pulse and temperature)will be taken. Any preparations that need to be done will be done there. When it is time for your surgery, you will be taken to the operating room. PARENTS OF PEDIATRIC PATIENTS WILL BE ALLOWED TO STAY WITH THEIR CHILDREN UNTIL THEY ARE ESCORTED TO THE OPERATING ROOM OUTPATIENT SURGERY PATIENTS: After your surgery you will be taken to the Same Day Surgery Unit when you are awake and will go home from there. You will get instructions about your home care before you leave. Arrange to have someone drive you home from the hospital. You may not drive for 24 hours after anesthesia. You must have an adult stay with you at home for 24 hours after your operation. This is very important. If you are not able to comply with these guidelines, your Short Stay surgery cannot be done. ADMISSION PATIENTS: After your stay in the recovery area, you will be taken to your room. Your family may visit you in your room based on current visitation policy. If a next day discharge is expected, it is important to make arrangements for a emergency vehicle driver to take you home. Please be aware our visitation policies are subject to change Professionals, attendants, caregivers or family members are allowable visitors for patients with intellectual, developmental or cognitive disabilities, communication barriers or behavioral concerns. Because patients' and families' needs vary, they will be taken into account when applying visitation restrictions. [facility]: Contact # [phone] Directions to Surgical Suite in from the Candie Entrance The Surgical Waiting Room can be found in the Lobby of [facility] [place]. Enter through Main Lobby Entrance and the Waiting Room is directly in front of you. Proceed to check in and give them your name. Directions to Surgical Suite from the East Entrance Enter the East entrance and follow the hallway to the J elevator. Take the J elevator up to Level 1. Continue down the long hallway to the main [facility] Lobby. The Surgical Waiting Room will be on your Right. Proceed to check in and give them your Name. Directions to Surgical Suite from the Parking Garage Enter the [facility] lobby and proceed down the conteh to the left. At the end of the conteh, turn right. Continue down the long hallway to the main [facility] Lobby. The Surgical Waiting Room will be on your Right. Proceed to check in and give them your Name. NO ANESTHESIA EVAL REQUESTED PER CASE DOCUMENTATION. Patient identified by: name/birthdate Person taught: Patient Optime case procedure confirmed with patient/parent/guardian - no consent signed. Laterality confirmed as Left Surgery date at time of Pre-Surgery Center Encounter: 01/22/24 What procedure is patient having? left parietal craniotomy for tumor resection In an emergency, is patient willing to accept blood products or blood transfusion? yes Do you need to place a blood bank order? Yes Anesthesia consent pool notified? N/A Anesthesia evaluation requested per case documentation? No Preop Evaluation Requested? No PATIENT EDUCATION SCREENING Person taught: Patient Motivation Level: Asks Questions Language Barrier: No Physical Barrier: N/A METHOD: Lecture-telephone interview Patient Preferred Learning Methods: Lecture-Telephone interview Health History interview completed, questions answered, and the following patient instructions provided via telephone interview: Preoperative bathing instructions General preoperative instructions Medication instructions NPO instructions OUTCOME: State / Describe / Explain Terri Veliz, MSN, RN [facility] 01/21/2024 documented in this encounter OR Notes * OR Surgeon - Jessica AGUIRRE, Neo Mendoza MD - 01/22/2024 3:13 PM EDT [facility] [address] [facility] [id number] OPERATIVE REPORT Name: Mariano Guillen Date: 01/22/2024 Time: 311 PM Location: [facility] Service: Neurosurgery Date of Operation: 01/22/2024 Pre-op Diagnosis: left parietal brain tumor with neurological deficit Post-op Diagnosis: same Operation: left craniotomy for tumor resection, use of brainlab stereotactic neuronavigation, use of the operative ultrasound with self interpretation, use of neurophysiological monitoring (SSEP/MEP/subcortical stim/phase reversal with strip electrode) Surgeon: Neo Lopez III, MD, PhD Assistants: Callum Hassan MD Anesthesia: General endotracheal anesthesia; local Drains: none Estimated Blood Loss: 25 ml. IV Fluids: see anesthesia record Urine Output: see anesthesia record Specimens/Disposition: LEFT parietal brain tumor for intra-op and permanent; sonopet contents Apparent Intraoperative Complications: NONE Patient Condition: stable Disposition: Post Anesthesia Care Unit Attestation: INeo III, M.D., Ph.D., performed the critical portions of this operation and was immediately available for all others. Operative Indication: I visited with Mr. Guillen, who appears [...] and dc followed by surgery next week. Operation: The patient is brought to the OR and identified. He aided in positioning himself on the OR table supine. He was placed under general anesthesia and intubated. All necessary lines, IV, a raphael, etc were placed as needed. The head of the bed was turned 180 degrees away from anesthesia. The head was placed in the Larkin head clamp without incident. He was fixated via the adaptor in a somewhat flexed position. He was secured to the bed with 3" tape and the safety strap. Brainlab neuronavigation was set up and and registered. We used this to plan a coronally oriented incision above the tumor to allow for a left parietal craniotomy. I marked the incision and clipped any hair as needed. Neurophys iological monitoring was set up and run (SSEP/MEP). There were followable. His scalp was cleansed with chlorhexidine brushes. He was prepped and draped in the usual sterile fashion. Preop antibioticswere administered in accordance with SCIP protocol within one hour of skin incision, to be discontinued within 24h of first administration. He was also given mannitol, keppra, and steroids. His filmswere up for review. A surgical pause was performed. Local was administered to the scalp. The incision was opened using a 10 blade. This was carried down to the bone using monopolar cautery. Self retaining retractors were placed. Brainlab was used to plan the craniotomy. Wilburn holes were made using the care professional bit on a high speed drill. The dura was then dissected away from the overlying bone. The bone was waxed and hemostasis was obtained in theepidural space using floseal. The ultrasound was then utilized to visualize the tumor and its location. The dura was opened in a cruciate fashion with the leaflets held back with neurolons. We then attempted to perform a phase reversal evaluation by placing a strip electrode on the surface of the br ain. This revealed that the cortical motor strip appeared to be anterior to our cranial defect. We utilized the brainlab pointer and ultrasound to plan our corticectomy in the location where the tumor came nearest to the surface. The bipolar and microscissors were used to make a corticectomy and expand it sufficiently to access the tumor. We suctioned tissue until we arrived at what was obvious tumor tissue. We took a number of specimens with a micropituitary to be sent for intra-op and permanent evaluation. We then placed the subcortical stim electrode onto the suction and set stimulation to10 mAmps. We then used a combination of suctions, the bipolar, and the sonopet to work inside the tumor and resect the tissue. At one point the pathologist called into the room and indicated that theintra-op evaluation was consistent with a high grade glioma. The final diagnosis will be deferred. We then continued to work inside the tumor in the tissue that appeared to be obviously abnormal. We periodically checked where we were with the neuronavigation. I continued this until I felt that essen tially all the obvious tumor tissue was out, and we started to detect subcortical stimulation for the leg and foot anterior and deep in our resection cavity. At this point, I inspected the cavity forany other safe tumor to remove and touched up the edges in a few locations with the sonopet. Once I felt that a safe maximal resection had been achieved, we obtained meticulous hemostasis witha combination of warm irrigation, floseal, the bipolar, and cotton balls. We inspected the cavity and placed surgicel in the resection bed. A piece of gel foam was applied as a dural inlay. The dura was closed with 4-0 neurolons in an interrupted fashion. Another piece of gel foam was applied as a dural overlay. The bone was plated with Synthes plates and screws. It was secured to the skull. We irrigated with copious amounts of antibiotic containing irrigation and obtained hemostasis in the scalp again. The galea was closed in interrupted 2-0 vicryl sutures. The skin was closed with jessica. There were no pathological changes in neurophysiological monitoring. A final closing timeout was performed. A sterile dressing was applied. The drapes were taken down. The Larkin head clamp was removed from the patient's head without incident. The head of the bed was turned back to anesthesia. Thepatient was emerged from general anesthesia to be extubated. He was repositioned supine on the [facility]. He was transferred to the PACU in stable and satisfactory condition. All needle, sponge, instrument, and cottonoid counts were correct at the end of the operation. documented in this encounter Miscellaneous Notes * Care Plan - Feliz Ybarra RN - 01/23/2024 11:30 AM EDT Clinical Goal(s): pt will be fall free (01/23/24 0800) Possible barriers to meeting goal(s)/advancing plan of care: post op Stability of the patient: Moderately stable - low risk of patient condition declining or worsening Summary regarding today's goal(s): Met: no falls noted Recommendations: frequent nurse rounds * Ancillary Progress Note - Dea Peace MSW - 01/23/2024 9:51 AM EDT CARE MANAGEMENT - ADULT INITIAL SCREENING [facility]-[address] [address] Name: Mariano Guillen Location: [facility] A472/B Date: 01/23/2024 Time: 9:51 AM Discussed patient with the interdisciplinary care team. This Waterworks Pump Station Operator performed a chart review and spoke with patient to complete admission screen and assessed needs for transition planning. The ocular care technician role and services were explained and emotional support was provided. Chief Complaint: No chief complaint on file. Prior Living Arrangements What was your living situation prior to admission/observation?: Independently;With Spouse;With Child (01/23/24951) Number of steps to enter living quarters:: no ANTONY (01/23/24951) Do you have serious difficulty walking or climbing stairs? (5 years old or older): No (01/22/241646) History of falling: No (01/23/24799) Prior Level of Functioning Describe the patient's ability prior to admission/observation to perform ADLs: Performs independently (01/23/24951) Describe the patient's mobility status prior to admission: Patient requires assistance with ambulation (01/22/241646) Patient uses assistive device: Yes (01/23/24951) If yes, choose:: Cane (01/23/24951) Caregiver Information Patient Contacts Name Relation Home Work Mobile Grace Guillen Spouse [phone] Risk Stratification/Psychosocial/Care Gaps Risk Stratification Psycho Social / Medical Concerns Identified: Adjustment to illness/injury (01/23/24951) OBRA or OPTIONS needed for placement: No (01/23/24951) Readmission Risk Score: 11.07 (01/23/24 0801) AM-PAC Score With Stairs : 22 (01/23/24799) Prior to Admission Services Services Prior to Admission [employer] Services (Services received within the last 30 days with exception, Psych within last two years): N/A (01/23/24951) [place] Dept. of Aging (PDA) Waiver Program: N/A (01/23/24951) [employer] Transportation (Services received within the last 30 days): Family/Friends Personal Vehicle (01/23/24951) Outpatient Waterworks Pump Station Operator: No care environmental field team member to display Patient/Family Expectations: home vs rehab pending PT/OT notes Comments: SW spoke with patient to complete assessment. Patient lives with his and two kids, aged 18 and 14, in a 2 story home. Patient's 14 year old son in care of patient's and 18 year old daughter. Patient lives on the main floor of home (with full bedroom/bathroom) with no ANTONY. Patient was independent with ADLs prior to admission; had been using a cane to get around for the last week. Patient reported no history of SNF/IRF/HH. Patient agreeable to rehab if needed. SW to continue to follow. 1314: SW met with patient and his family ay bedside. SW offered IRF list, patient declined, stated he would like to go home with outpatient PT/OT (, daughter, of parents can drive him to appts). Patient agreeable to using any [employer] company for a walker with wheels; no preference. Service updated.SW to continue to follow. 1400: SW delivered [employer] walker with wheels to patient at bedside. Patient reported no additional SW questions at this time. SW faxed walker with wheels order to [employer] at fax number [phone]. SW to continue to follow. For further screening information, please refer to the Care Management flow document. * Progress Notes - Post-Op Gricel - Ajit Scott MD - 01/23/2024 8:50 AM EDT NEUROLOGICAL SURGERY PROGRESS NOTE [facility]-[address] [address] Name: Mariano Guillen Location: [facility] A472/B Date: 01/23/2024 Time: 8:50 AM Hospital day number: 1 SUBJECTIVE: ELA OBJECTIVE: Most recent vital signs: BP: 110 mmHg/61 mmHg (01/23/24725) Pulse: 63 (01/23/24725) Resp: 16 (01/23/24725) Temp: 36.28 C (01/23/24725) Temp Summary: Temp Min: 36.2 C (97.2 F) Max: 37.1 C (98.8 F) SpO2: 95 % (01/23/24725) O2 flow rate: 0 L/MIN (01/23/24 030) Supplemental O2 Delivery: Room Air, None (01/23/24725) Vital signs over last 24 hours: Systolic BP: Most Recent Systolic BP Av.1 mmHg Min: 109 mmHg Max: 173 mmHg Temperature: Most Recent Temperature Av.6 C Min: 36.22 C Max: 37.11 C Pulse: Pulse Avg: Pulse Av.7 Min: 54 Max: 75 Respirations: Resp Av.8 Min: 14 Max: 25 SpO2: SpO2 Av.1 % Min: 95 % Max: 100 % SpO2: SpO2 Av.1 % Min: 95 % Max: 100 % FiO2%: No data recorded ICP: No data found.CPP (adult): No data found.Intake Input/Output: (last 24 hours) Intake/Output Summary (Last 24 hours) at 01/23/2024 0850 Last data filed at 01/23/2024 0721 Gross per 24 hour Intake 2334.35 ml Output 1550 ml Net 784.35 ml Incision: jessica, Telfa, medipore Drains: none Neurologic Examination Boby Coma Scale (GCS): Eyes Open: 4 = spontaneous Best Verbal Response: 5 = verbally appropriate for age Best Motor Response: 6 = obeys commands appropriate for age Coma Score: 15 Awake, alert, oriented to person, place, time PERRL EOMI No facial droop No pronator drift LANDON to command RUE 5/5, baseline incoordination LUE 5/5 RLE 5/5, baseline incoordination LLE 5/5 Sensation grossly intact LABS: Blood count: Lab Results Component Value Date/Time WBC 13.46 (H) 01/22/2024 03:35 PM HGB 14.8 01/22/2024 03:35 PM HCT 42.9 01/22/2024 03:35 PM PLT 238 01/22/2024 03:35 PM Coagulation studies: Lab Results Component Value Date/Time INR 1.0 01/16/2024 09:55 PM Chemistry: Lab Results Component Value Date/Time BUN 18 01/22/2024 03:35 PM CREAT 0.8 01/22/2024 03:35 PM NA 138 01/22/2024 03:35 PM POTASSIUM 3.8 01/22/2024 03:35 PM POTASSIUM 3.7 01/22/2024 12:59 PM CO2 22 01/22/2024 03:35 PM Imaging studies: MRI with minimal residual Problem list: Principal Problem: Malignant neoplasm of parietal lobe (HCC) Resolved Problems: * No resolved hospital problems. * CLINICAL HISTORY AND PLAN: Mariano Guillen is a 53 year old male patient s/p L parietal craniotomy with Dr. Lopez on 01/22/2024. Presented with R sided incoordination and diminished sensation. Floor status q4 neuro checks, vitals SBP goal < 160 Dexamethasone taper x 1 week No need for antiepileptics at this time Pain control Continue perioperative abx No drain No Raphael GI ppx while on dexamethasone Bowel regimen Antiemetics Regular diet Incentive spirometer Continue home meds VTE ppx with SCDs, TEDs, SQH OOB as tolerated. PT/OT The author of this note may not be who is personalized living assistant at this time. Please check the phonebook for the neurosurgery first call for any additional questions. Case discussed with attending physician. Associated attestation - Neo Lopez III, MD - 01/23/2024 12:51 PM EDT I saw and evaluated the patient today. I have reviewed the resident/fellow physician note and agree. * Care Plan - Rocío Alamo RN - 01/23/2024 5:37 AM EDT Clinical Goal(s): pt will maintain safety this shift (01/22/24 2300) Possible barriers to meeting goal(s)/advancing plan of care: pt diagnosis Stability of the patient: Moderately stable - low risk of patient condition declining or worsening Summary regarding today's goal(s): Met: safety maintained Recommendations: hourly rounding, call galvan in reach, safety devices in place * Respiratory Progress Note - Lou Hennessy RRT - 01/22/2024 5:17 PM EDT PATIENT DRIVEN PROTOCOL - Respiratory Care Services [address] [address] Name: Mariano Guillen Location: [facility] A472/B Date: 01/22/2024 Time: 5:17 PM Patient Driven Protocol Summary: Initial evaluation performed. This Treatment Plan and medications will be reviewed by the Primary Care Team for any contraindications. Respiratory Care Treatment Plan Aerosol Therapy Treatment:: Hand Held Nebulizer Tx PRN with Albuterol Sulfate: Unit dose 0.083%. to reduce work of breathing and improve pulmonary gas exchange. . Pulmonary Volume Expansion Therapy: Incentive Spirometry PRN to prevent or treat alveolar consolidation and atelectasis. . Secretion Management Treatment: Flutter TherapyPRN to enhance mobilization of secretions. . The patient will be re-evaluated: No re-evaluation [...] Medical Record Assessment Clinical Findings Pulmonary Status: 3 - Pulm Impairment (acute or chronic) w/o exacerbation, or 1 - 2 rib fractures Surgical Status: 1 - General Surgery Chest X-Ray: 0 - Not Performed or performed greater than 3 days ago Assessment Score: 4 Patient Assessment Clinical Findings Respiratory Pattern: 0 - RR 12 - 20; Patient only gets breathless with strenuous exercise. Breath Sounds: 0 - Clear to auscultation Cough Effectiveness: 0 - Strong non-productive Sputum Production: 0 - No sputum production Level of Activity: 1 - Ambulatory with assist O2 needed to keep SpO2 greater than or equal to 92%: 0 - Room Air Assessment Score: 1 Total Assessment Score: 5 Breath Sounds: Inspiratory and expiratory clear bilaterally.. Cough and Sputum: An effective cough produced no sputum... CXR: n/a. Vital Signs: Resp: 18 (01/22/241645) Pulse: 60 (01/22/241645) Temp: 37.1 C (98.8 F) (01/22/241645) BP: 146/88 (01/22/241645) SpO2: 97 % (01/22/241614) PFT: Minimal Predicted IC: 0.93 L. Inspiratory capacity: 1.5 L. Primary Service: Neurosurgery. Admitting Diagnosis: Malignant neoplasm of parietal lobe (HCC) [C71.3] Pulmonary Diagnosis: Reactive airway dysfunction syndrome . Prescriptions/Home Medications/Durable Medical Equipment: per chart albuterol prn . * Progress Notes - Post-Op Global - Callum Hassan MD - 01/22/2024 3:28 PM EDT NEUROLOGICAL SURGERY PROGRESS NOTE [facility]-[address] [address] Name: Mariano Guillen Location: OR [facility]/OR Date: 01/22/2024 Time: 3:28 PM Hospital day number: 0 SUBJECTIVE: Transferred to PACU without issue. OBJECTIVE: Most recent vital signs: BP: 157 mmHg/76 mmHg (01/22/241514) Pulse: 63 (01/22/241514) Resp: 16 (01/22/241514) Temp: 36.72 C (01/22/241434) Temp Summary: Temp Min: 36.6 C (97.9 F) Max: 36.7 C (98.1 F) SpO2: 97 % (01/22/241514) O2 flow rate: 10 L/MIN (01/22/241434) Supplemental O2 Delivery: Room Air, None (01/22/24 1515) Vital signs over last 24 hours: Systolic BP: Most Recent Systolic BP Av.5 mmHg Min: 146 mmHg Max: 173 mmHg Temperature: Most Recent Temperature Av.7 C Min: 36.61 C Max: 36.72 C Pulse: Pulse Avg: Pulse Av.4 Min: 55 Max: 75 Respirations: Resp Av.6 Min: 14 Max: 25 SpO2: SpO2 Av % Min: 95 % Max: 100 % SpO2: SpO2 Av % Min: 95 % Max: 100 % FiO2%: No data recorded ICP: No data found.CPP (adult): No data found.Intake Input/Output: (last 24 hours) Intake/Output Summary (Last 24 hours) at 01/22/2024 1528 Last data filed at 01/22/2024 1412 Gross per 24 hour Intake 1794.63 ml Output 650 ml Net 1144.63 ml Incision: jessica, Telfa, medipore Drains: none Neurologic Examination [place] Coma Scale (GCS): Eyes Open: 4 = spontaneous Best Verbal Response: 5 = verbally appropriate for age Best Motor Response: 6 = obeys commands appropriate for age Coma Score: 15 Awake, alert, oriented to person, place, time PERRL EOMI No facial droop No pronator drift LANDON to command RUE 5/5, baseline incoordination LUE 5/5 RLE 5/5, baseline incoordination LLE 5/5 Sensation grossly intact LABS: Blood [...] PM NA 138 01/16/2024 09:55 PM POTASSIUM 3.7 01/22/2024 12:59 PM CO2 22 01/16/2024 09:55 PM Imaging studies: No new images Problem list: Principal Problem: Malignant neoplasm of parietal lobe (HCC) Resolved Problems: * No resolved hospital problems. * CLINICAL HISTORY AND PLAN: Mariano Guillen is a 53 year old male patient s/p L parietal craniotomy with Dr. Lopez on 01/22/2024. Presented with R sided incoordination and diminished sensation. Floor status q4 neuro checks, vitals SBP goal < 160 MRI brain w/wo contrast Dexamethasone taper x 1 week No need for antiepileptics at this time Pain control Continue perioperative abx Maintenance fluids until adequate PO No drain No Raphael GI ppx while on dexamethasone Bowel regimen Antiemetics Regular diet, pending bedside dysphasia screen Incentive spirometer Continue home meds VTE ppx with SCDs, TEDs, SQH OOB as tolerated. PT/OT The attending is Dr. Lopez Associated attestation - Neo Lopez III, MD - 01/23/2024 7:24 AM EDT I saw and evaluated the patient 01/22/24. I have reviewed the resident/fellow physician note and agree. * Communication - Neo Lopez III, MD - 01/22/2024 3:14 PM EDT NSGY Attending I reached out to the patient's spouse and updated her on the outcome of the operation and Mariano'scondition. We discussed the prelim path of high grade glioma. I reviewed the short term plan of this hospitalization regarding an Mri and plans for dispo. All questions were answered. Neo Lopez III, MD, PhD 01/22/2024 3:14 PM documented in this encounter Plan of Treatment Upcoming Encounters Date Type Department Care Team (Late st Contact Info) Description 01/24/2024 10:30 AM EDT Scheduled Telephone Neurosurgery, [place] [address], [place] [id number] Cesario, Nurse Follow Up Phone Call Neurosurg [address] [place] [address] 01/30/2024 1:00 PM EST Office Visit Family [facility] [place] [address] [place] [id number] Beverly Gonzales CRNP [address] [place] [phone] 02/04/2024 9:45 AM EST Office Visit Neurosurgery, [place] [address] [place] [address] Clinic, Brain Tumor Multidisciplinary [address] [place] [address] Pending Results Name Type Priority Associated Diagnoses Date /Time SURGICAL PATHOLOGY Pathology Routine Malignant neoplasm of parietal lobe (HCC) 01/22/2024 12:51 PM EDT MYGENVAR CENTRAL NERVOUS SYSTEM NEOPLASM GENE PANEL, NEXT GENERATION SEQUENCING Lab Routine Malignant neoplasm of parietal lobe (HCC) 01/22/2024 12:51 PM EDT Scheduled Orders Name Type Priority Associated Diagnoses Orde r Schedule SURGICAL PATHOLOGY Pathology Routine Malignant neoplasm of parietal lobe (HCC) Release Upon Ordering for 1 Occurrences starting 01/22/2024, 1 completed MYGENVAR CENTRAL NERVOUS SYSTEM NEOPLASM GENE PANEL, NEXT GENERATION SEQUENCING Lab Routine Malignant neoplasm of parietal lobe (HCC) One Time for 1 Occurrences starting 01/23/2024 until 01/23/2024, 1 completed Scheduled Referrals Name Type Priority Associated Diagnoses Orde r Schedule PHYSICAL THERAPY REFERRAL OP Referral Within 10 days (routine) Neoplasm causing mass effect and brain compression on adjacent structures (HCC) Cerebral edema (HCC) Brain mass Ordered: 01/23/2024 Health Maintenance Due Date Last Done Comments [...] Additional history exists COVID-19 Vaccine (1 - season) 2023 Influenza [...] this encounter Medical Devices Implanted Type Area Auto Wheel Alignment Specialist Device Identifier Shelf Expiration Date Model / Serial / Lot Cover Bur Hol Ti Lo 17 [id number] - [id number] Implanted:Qty: 1 on 01/22/2024 by Neo Lopez III, MD at OR [facility] Left: Head SYNTHES MAXILLOFACIAL 421.527 / / Screw Ti Lo Pro Sd 4mm 400.834 - [id number] Implanted:Qty: 8 on 01/22/2024 by Neo Lopez III, MD at OR [facility] Left: Head SYN[employer]ES MAXILLOFACIAL 400.834 / / Cover Bur Hol 15mm 421.526 - [id number] Implanted:Qty: 1 on 01/22/2024 by Neo Lopez III, MD at OR [facility] Left: Head [employer]ES MAXILLOFACIAL [id number] / / documented as of this encounter Procedures Procedure Name Priority Date/Time Associated Diagnosis Comments GLUCOSE METER, POINT OF CARE LEELA 01/22/2024 9:44 PM EDT MRI BRAIN W WO CONTRAST Routine 01/22/20 7:49 PM EDT DIFFERENTIAL, AUTOMATED STAT 01/22/20 3:35 PM EDT BASIC METABOLIC PANEL STAT 01/22/2024 3:35 PM EDT CBC STAT 01/22/2024 3:35 PM EDT CBC STAT 01/22/2024 3:35 PM EDT GLUCOSE METER, POINT OF CARE LEELA 01/22/2024 2:48 PM EDT BLOOD GAS WITH CHEMISTRY, POINT OF CARE [facility] 01/22/2024 12:59 PM EDT BLOOD GAS WITH CHEMISTRY, POINT OF CARE [facility] 01/22/2024 11:58 AM EDT MICROSURGERY ADD-ON 01/22/2024 9 :56 AM EDT Malignant neoplasm of parietal lobe (HCC) REMOVE SUPRATENTORIAL BRAIN TUMOR 01/22/2024 9:56 AM EDT Malignant neoplasm of parietal lobe (HCC) GLUCOSE METER, POINT OF CARE [facility] 01/22/2024 9:27 AM EDT ABO/RH STAT 01/22/2024 9:18 AM EDT TYPE AND SCREEN STAT 01/22/2024 9:18 AM EDT [facility] PCR Routine 01/22/2024 9:10 AM EDT documented in this encounter Results * (ABNORMAL) GLUCOSE METER, POINT OF CARE (01/22/2024 9:44 PM EDT) [facility] GLUCOSE - POCT 196(H) 70 - 120 mg/dL 01/22/2024 10:09 PM EDT [facility] Blood Whole blood specimen / Unknown 01/22/2024 9:44 PM EDT 01/22/2024 10:09 PM EDT Neo Lopez III, MD LAB POINT O F CARE TEST DOCKED DEVICE UNSOLICITED RESULTS [facility] [address] [place] [address] * MRI BRAIN W WO CONTRAST (01/22/2024 7:49 PM EDT) Anatomical Region Laterality Modality Neuro, Head Magnetic Resonan ce 01/22/2024 8:15 PM EDT Impressions 01/22/2024 8:12 PM EDT IMPRESSION Expected postsurgical changes of left parietal craniotomy for tumor resection, as detailed above. Narrative 01/22/2024 8:12 PM EDT EXAM MRI BRAIN W WO CONTRAST- 01/22/2024 7:49 pm HISTORY tumor, postop scan COMPARISON MRI brain dated 01/16/2024 TECHNIQUE Multiplanar, multisequence magnetic resonance imaging of the brain was performed before and after the administration of intravenous contrast. FINDINGS Evaluation is slightly limited due to motion artifact. Postsurgical changes of left parietal craniotomy for tumor resection are noted with associated magnetic susceptibility from postsurgical blood products and pneumocephalus. There has been resection of the majority of the contrast- enhancing tumor with mild residual enhancement at the anterior and deep resection cavity margins extending into the corpus callosum. Adjacent vasogenic edema again noted. There is no evidence of acute ischemic infarction or hydrocephalus. The expected major intracranial vascular flow voids are preserved. Mild paranasal sinus mucosal thickening. The mastoid air cells are clear. Procedure Note Bi Kirby MD - 01/22/2024 EXAM MRI BRAIN W WO CONTRAST- 01/22/2024 7:49 pm HISTORY tumor, postop scan COMPARISON MRI brain dated 01/16/2024 TECHNIQUE Multiplanar, multisequence magnetic resonance imaging of the brain wasperformed before and after the administration of intravenous contrast. FINDINGS Evaluation is slightly limited due to motion artifact. Postsurgical changes of left parietal craniotomy for tumor resection arenoted with associated magnetic susceptibility from postsurgical bloodproducts and pneumocephalus. There has been resection of the majority ofthe contrast- enhancing tumor with mild residual enhancement at theanterior and deep resection cavity margins extending into the corpuscallosum. Adjacent vasogenic edema again noted. There is no evidence of acute ischemic infarction or hydrocephalus. Theexpected major intracranial vascular flow voids are preserved. Mild paranasal sinus mucosal thickening. The mastoid air cells areclear. IMPRESSION IMPRESSION Expected postsurgical changes of left parietal craniotomy for tumorresection, as detailed above. Callum Hassan MD RAD MRI-MRA * (ABNORMAL) DIFFERENTIAL, AUTOMATED (01/22/2024 3:35 PM EDT) WBC 13.46(H) 4.00 - 10.80 K/uL 01/22/2024 3:49 PM EDT [facility] Neutrophils % 89.9(H) 40.0 - 75.0 % 01/22/2024 3:49 PM EDT [facility] Lymphocytes % 6.2(L) 18.0 - 42.0 % 01/22/2024 3:49 PM EDT [facility] Monocytes % 3.4 1.0 - 11.0 % 01/22/2024 3:49 PM EDT [facility] Eosinophils % 0.0 0.0 - 6.0 % 01/22/2024 3:49 PM EDT [facility] Basophils % 0.1 0.0 - 2.0 % 01/22/2024 3:49 PM EDT [facility] Immature Granulocytes % 0.4 0.0 - 2.0 % 01/22/2024 3:49 PM EDT [facility] Absolute Neutrophils 12.09(H) 1.80 - 7.70 K/uL 01/22/2024 3:49 PM EDT [facility] Absolute Lymphocytes 0.83(L) 1.00 - 4.80 K/ul 01/22/2024 3:49 PM EDT [facility] Absolute Monocytes 0.46 0.00 - 1.10 K/uL 01/22/2024 3:49 PM EDT [facility] Absolute Eosinophils 0.00 0.00 - 0.70 K/uL 01/22/2024 3:49 PM EDT [facility] Absolute Basophils 0.02 0.00 - 0.20 K/uL 01/22/2024 3:49 PM EDT [facility] Absolute Immature Granulocytes 0.06 0.00 - 0.20 K/uL 01/22/2024 3:49 PM EDT [facility] Blood Venous blood specimen / Unknown Venipuncture / Unknown 01/22/2024 3:35 PM EDT 01/22/2024 3:39 PM EDT Callum Hassan MD LAB BLOOD ORDERABLE S [facility] [address] [place] [address] * (ABNORMAL) CBC (01/22/2024 3:35 PM EDT) WBC 13.46(H) 4.00 - 10.80 K/uL 01/22/2024 3:49 PM EDT [facility] RBC 5.02 4.50 - 5.25 M/uL 01/22/2024 3:49 PM EDT [facility] HGB 14.8 14.0 - 16.8 g/dL 01/22/2024 3:49 PM EDT [facility] HCT 42.9 40.0 - 48.4 % 01/22/2024 3:49 PM EDT [facility] MCV 85.5 82.0 - 99.5 fL 01/22/2024 3:49 PM EDT [facility] MCH 29.5 27.0 - 34.0 pg 01/22/2024 3:49 PM EDT [facility] MCHC 34.5 32.0 - 36.0 g/dL 01/22/2024 3:49 PM EDT [facility] RDW 13.5 11.5 - 15.5 % 01/22/2024 3:49 PM EDT [facility] PLT 238 140 - 400 K/uL 01/22/2024 3:49 PM EDT [facility] MPV 10.5 6.6 - 11.1 fL 01/22/2024 3:49 PM EDT [facility] nRBCs 0 <=0 /100 WBCs 01/22/2024 3:49 PM EDT [facility] Blood Venous blood specimen / Unknown Venipuncture / Unknown 01/22/2024 3:35 PM EDT 01/22/2024 3:39 PM EDT Callum Hassan MD LAB BLOOD ORDERABLE S Performing Organization Address City/[facility]/ZIP Co de Phone Number LABORATORY C [address] [place] [address] * (ABNORMAL) BASIC METABOLIC PANEL (01/22/2024 3:35 PM EDT) BUN 18 6 - 20 mg/dL 01/22/2024 4:08 PM EDT LABORATORY [facility] CREATININE 0.8 0.6 - 1.2 mg/dL 01/22/2024 4:08 PM EDT LABORATORY C EGFR >90 >=60 mL/min 01/22/2024 4:08 PM EDT [facility] Comment:eGFR is calculated b ased on the CKD-EPI 2020 equation. SODIUM 138 135 - 146 mmol/L 01/22/2024 4:08 PM EDT LABORATORY C POTASSIUM 3.8 3.5 - 5.1 mmol/L 01/22/2024 4:08 PM EDT LABORATORY C CHLORIDE 104 98 - 107 mmol/L 01/22/2024 4:08 PM EDT LABORATORY C CO2 22 22 - 32 mmol/L 01/22/2024 4:08 PM EDT LABORATORY C ANION GAP 12 7 - 15 mmol/L 01/22/2024 4:08 PM EDT LABORATORY C GLUCOSE 153(H) 70 - 120 mg/dL 01/22/2024 4:08 PM EDT LABORATORY C CALCIUM 7.7(L) 8.4 - 10.2 mg/dL 01/22/2024 4:08 PM EDT LABORATORY C Blood Venous blood specimen / Unknown Venipuncture / Unknown 01/22/2024 3:35 PM EDT 01/22/2024 3:39 PM EDT Callum Hassan MD LAB BLOOD ORDERABLE S Performing Organization Address City/[facility]/ZIP Co de Phone Number LABORATORY [facility] [address] [place] [address] * (ABNORMAL) GLUCOSE METER, POINT OF CARE (01/22/2024 2:48 PM EDT) GLUCOSE - POCT 129(H) 70 - 120 mg/dL 01/22/2024 2:52 PM EDT [employer] Blood Whole blood specimen / Unknown 01/22/2024 2:48 PM EDT 01/22/2024 2:52 PM EDT Neo Lopez III, MD LAB POINT O F CARE TEST DOCKED DEVICE UNSOLICITED RESULTS [facility] [address] [place] [address] * (ABNORMAL) BLOOD GAS WITH CHEMISTRY, POINT OF CARE (01/22/2024 12:59 PM EDT) Pathologist [facility] Draw Site Arterial Draw 01/22/2024 2:51 PM EDT [facility] pH i-STAT 7.432 7.350 - 7.450 01/22/2024 2:51 PM EDT [facility] pCO2 i-STAT 36.7 35.0 - 45.0 mm Hg 01/22/2024 2:51 PM EDT [facility] pO2 i-STAT 84 75 - 100 mm Hg 01/22/2024 2:51 PM EDT [facility] Base Excess i-STAT 1 -2 - 2 mmol/L 01/22/2024 2:51 PM EDT [facility] Bicarbonate i-STAT 24.5 23.0 - 31.0 mmol/L 01/22/2024 2:51 PM EDT [facility] O2 Saturation i-STAT 97.0 94.0 - 98.0 % 01/22/2024 2:51 PM EDT [facility] GLUCOSE - POCT 135(H) 70 - 120 mg/dL 01/22/2024 2:51 PM EDT [facility] POTASSIUM - POCT 3.7 3.5 - 5.1 mmol/L 01/22/2024 2:51 PM EDT [employer] SODIUM - POCT 136 135 - 146 mmol/L 01/22/2024 2:51 PM EDT [employer] Calcium, ionized 1.10(L) 1.13 - 1.32 mmol/L 01/22/2024 2:51 PM EDT [facility] Hemoglobin i-STAT 15.0 14.0 - 16.8 g/dL 01/22/2024 2:51 PM EDT [facility] Hematocrit i-STAT 44 40 - 48 % 01/22/2024 2:51 PM EDT [facility] FiO2 39 % 01/22/2024 2:51 PM EDT [facility] Arterial Draw 01/22/2024 12: 59 PM EDT 01/22/2024 2:50 PM EDT Neo Lopez III, MD LAB POINT O F CARE TEST DOCKED DEVICE UNSOLICITED RESULTS [facility] [address] [place] [address] * (ABNORMAL) BLOOD GAS WITH CHEMISTRY, POINT OF CARE (01/22/2024 11:58 AM EDT) Draw Site Arterial Draw 01/22/2024 2:51 PM EDT [facility] pH i-STAT 7.398 7.350 - 7.450 01/22/2024 2:51 PM EDT [facility] pCO2 i-STAT 37.7 35.0 - 45.0 mm Hg 01/22/2024 2:51 PM EDT [facility] pO2 i-STAT 93 75 - 100 mm Hg 01/22/2024 2:51 PM EDT [facility] Base Excess i-STAT -1 -2 - 2 mmol/L 01/22/2024 2:51 PM EDT [facility] Bicarbonate i-STAT 23.3 23.0 - 31.0 mmol/L 01/22/2024 2:51 PM EDT [facility] O2 Saturation i-STAT 97.0 94.0 - 98.0 % 01/22/2024 2:51 PM EDT [facility] GLUCOSE - POCT 118 70 - 120 mg/dL 01/22/2024 2:51 PM EDT [facility] POTASSIUM - POCT 3.5 3.5 - 5.1 mmol/L 01/22/2024 2:51 PM EDT [facility] SODIUM - POCT 136 135 - 146 mmol/L 01/22/2024 2:51 PM EDT [facility] Calcium, ionized 1.11(L) 1.13 - 1.32 mmol/L 01/22/2024 2:51 PM EDT [facility] Hemoglobin i-STAT 15.0 14.0 - 16.8 g/dL 01/22/2024 2:51 PM EDT [facility] [employer] Hematocrit i-STAT 44 40 - 48 % 01/22/2024 2:51 PM EDT [facility] FiO2 40 % 01/22/2024 2:51 PM EDT [facility] [employer] Arterial Draw 01/22/2024 11: 58 AM EDT 01/22/2024 2:50 PM EDT Neo Lopez III, MD LAB POINT O F CARE TEST DOCKED DEVICE UNSOLICITED RESULTS Performing Organization Address City/[facility]/ZIP Co de Phone Number [facility] [address] [place] [address] * GLUCOSE METER, POINT OF CARE (01/22/2024 9:27 AM EDT) [facility] GLUCOSE - POCT 107 70 - 120 mg/dL 01/22/2024 9:29 AM EDT [facility] [facility] Blood Whole blood specimen / Unknown 01/22/2024 9:27 AM EDT 01/22/2024 9:29 AM EDT Neo Lopez III, MD LAB POINT O F CARE TEST DOCKED DEVICE UNSOLICITED RESULTS [facility] [address] [place] [address] * ABO/RH (01/22/2024 9:18 AM EDT) [facility] ABO A 01/22/2024 11:20 AM EDT LABORATORY [facility] BLOOD BANK Rh Negative 01/22/2024 11:20 AM EDT LABORATORY [facility] BLOOD B[facility] Blood Venous blood specimen / Unknown Venipuncture / Unknown 01/22/2024 9:18 AM EDT 01/22/2024 10:08 AM EDT Neo Lopez III, MD LAB BLOOD B ANK TEST ORDERABLES Performing Organization Address [facility] Phone Number LABORATORY [facility] BLOOD BANK [address] [place] [address] * TYPE AND SCREEN (01/22/2024 9:18 AM EDT) [facility] ABO A 01/22/2024 10:56 AM EDT LABORATORY [facility] BLOOD BANK Rh Negative 01/22/2024 10:56 AM EDT LABORATORY [facility] BLOOD BANK Red Blood Cell Antibody Screen Negative 01/22/2024 10:56 AM EDT LABORATORY [facility] BLOOD BANK Specimen Expiration Date 01/25/2024 23:59 01/22/2024 10:56 AM EDT LABORATORY [facility] BLOOD BANK Blood Venous blood specimen / Unknown Venipuncture / Unknown 01/22/2024 9:18 AM EDT 01/22/2024 10:08 AM EDT Neo Lopez III, MD LAB BLOOD B ANK TEST ORDERABLES Performing Organization Address [facility] Phone Number LABORATORY [facility] BLOOD BANK [address] [place] [address] * (ABNORMAL) STAPH AUREUS PCR (01/22/2024 9:10 AM EDT) [facility] MRSA PCR Result Positive( A) Negative 01/22/2024 12:33 PM EDT LABORATORY [facility] Comment:Methicillin resistan t Staphylococcus aureus detected by PCR (amplified probe). MRSA-This patient may require isolation. Please refer to Infection Control isolation policy. Staphylococcus aureus PCR Result Positive( A) Negative 01/22/2024 12:33 PM EDT LABORATORY [facility] Comment:Staphylococcus aureu s detected by PCR (amplified probe). Upper Respiratory Swab of internal nose / Unknown Non-blood Collection / Unknown 01/22/2024 9:10 AM EDT 01/22/2024 10:35 AM EDT Callum Hassan MD LAB MICRO - GENERAL ORDERABLES LABORATORY [facility] [address] [place] [address] documented in this encounter Visit Diagnoses Diagnosis Malignant neoplasm of parietal lobe (HCC)- Primary Malignant neoplasm of parietal lobe of brain Malignant neoplasm of parietal lobe (HCC) Malignant neoplasm of parietal lobe of brain Neoplasm causing mass effect and brain compression on adjacent structures (HCC) Cerebral edema (HCC) Cerebral edema Brain mass Unspecified condition of brain documented in this encounter Administered Medications Inactive Administered Medications - up to 3 most recent administrations Medication Order MAR Action Action Date Dose Rate Site Acetaminophen (Tylenol) tab 975 mg 975 mg, Oral, PREOP, First dose on Sun01/22/24 at 0930, Last dose on Sun01/22/24 at 0930, For 1 dose, Maximum 4 g acetaminophen/day. Avoid in patients with severe hepatic impairment or severe active liver disease. Administer 60 minutes prior to OR. , Pre-Op Given 01/22/2024 9:42 AM EDT 975 mg Acetaminophen (Tylenol) tab 975 mg 975 mg, Oral, Q6H, First dose on Sun01/22/24 at 1800, Last dose on Sun01/27/24 at 1200, For 5 days, Maximum 4 g acetaminophen/day. Avoid in patients with severe hepatic impairment or severe active liver disease. Use for 5 days. Given 01/23/2024 12:46 PM EDT 975 mg Given 01/23/2024 6:29 AM EDT 975 mg Given 01/23/2024 12:12 AM EDT 975 mg Albuterol Sulfate (Proventil) (2.5 MG/3ML) 0.083% inhalation solution 2.5 mg 2.5 mg, Nebulizer, Q4H PRN Dyspnea, Starting on Sun01/22/24 at 1720, Until Sun01/23/24 at 1950 Aprepitant (Emend) cap 40 mg 40 mg, Oral, ONCE, On Sun01/22/24 at 1000, For 1 dose, Pre-Op Given 01/22/2024 9:44 AM EDT 40 mg ceFAZolin in dextrose (Ancef) ivpb 2 g 2 g, IV Piggyback, Q8HNOW, 2 doses, First dose on Sun01/22/24 at 2200, Last dose on Sun01/23/24 at 0600 New Bag 01/23/2024 6:21 AM EDT 2 g 100 mL/hr New Bag 01/22/2024 10:47 PM EDT 2 g 100 mL/hr celecoxib (CeleBREX) cap 400 mg 400 mg, Oral, PREOP, First dose on Sun01/22/24 at 0930, Last dose on Sun01/22/24 at 0930, For 1 dose, Contraindicated in setting of CABG surgery. Do not use in patients with CrCl < 60, receiving ketorolac, bone fracture. Reduce to 200 mg PO if greater than 65 years old . Administer 60 minutes prior to OR. , Pre-Op Given 01/22/2024 9:42 AM EDT 400 mg dexAMETHasone (Decadron) tab 2 mg 2 mg, Oral, BID (.AM/PM), First dose on Sun01/28/24 at 0900, Last dose on Sun01/28/24 at 2100, For 1 day dexAMETHasone (Decadron) tab 2 mg 2 mg, Oral, Daily(AM), First dose on Sun01/29/24 at 0900, Last dose on Sun01/29/24 at 0900, For 1 day dexAMETHasone (Decadron) tab 4 mg 4 mg, Oral, QID(AM/NOON/PM/HS), First dose on Sun01/22/24 at 1800, Last dose on Sun01/25/24 at 1200, For 3 days Given 01/23/2024 12:46 PM EDT 4 mg Given 01/23/2024 6:29 AM EDT 4 mg Given 01/22/2024 9:40 PM EDT 4 mg dexAMETHasone (Decadron) tab 4 mg 4 mg, Oral, TID(AM/NOON/HS), First dose on Sun01/25/24 at 2200, Last dose on Sun01/26/24 at 1200, For 1 day dexAMETHasone (Decadron) tab 4 mg 4 mg, Oral, BID (.AM/PM), First dose on Sun01/27/24 at 0900, Last dose on Sun01/27/24 at 2100, For 1 day Docusate Sodium (Colace) cap 100 mg 100 mg, Oral, BID (.AM/PM), First dose on Sun01/22/24 at 2100, Until Discontinued, For oral administration ONLY, if route of administration is other than oral and alternative product must be ordered. Given 01/23/2024 8:45 AM EDT 100 mg Given 01/22/2024 9:40 PM EDT 100 mg Famotidine (Pepcid) tab 20 mg 20 mg, Oral, Q12H, First dose on Sun01/22/24 at 2100, Until Discontinued Given 01/23/2024 8:44 AM EDT 20 mg Given 01/22/2024 9:40 PM EDT 20 mg gadobutrol (Gadavist) inj 11.9 mL 11.9 mL (rounded from 11.88 mL = 0.1 mL/kg 118.8 kg), Intravenous, ONCE, On Sun01/22/24 at 2030, For 1 dose, Radiology Medication Routing (Non-IR) Given 01/22/2024 8:30 PM EDT 10 mL hEParin inj 7,500 Units 7,500 Units, Subcutaneous, Q8H, First dose on Sun01/23/24 at 0600, Until Discontinued Given 01/23/2024 1:31 PM EDT 7,500 Units Abdomen Right Lower Given 01/23/2024 6:28 AM EDT 7,500 Units A bdomen Left Upper HYDROmorphone (Dilaudid) inj 0.5 mg 0.5 mg, IV Push, Q15 MIN PRN Pain, Severe, Pain, Breakthrough, Starting on Sun01/22/24 at 1357, Until Sun01/22/24 at 1643, For 4 doses, Administer only postop in PACU. Hold for respiratory rate less than 12. Administer up to a total of 1mg., PACU Given 01/22/2024 3:24 PM EDT 0.5 mg Given 01/22/2024 2:57 PM EDT 0.5 mg isolyte-S pH 7.4 infusion Intravenous, at 75 mL/hr, Plasma-LYTE 148, isolyte-S, and isolyte-S pH 7.4 are considered equivalent - including for MAR barcode scanning., CONTINUOUS, Starting on Sun01/22/24 at 1045, Until Sun01/22/24 at 1503, Pre-Op New Bag 01/22/2024 9:38 AM EDT 75 mL/ hr isolyte-S pH 7.4 infusion Intravenous, at 75 mL/hr, Plasma-LYTE 148, isolyte-S, and isolyte-S pH 7.4 are considered equivalent - including for MAR barcode scanning., CONTINUOUS, Starting on Sun01/22/24 at 1545, Until Sun01/22/24 at 2044 New Bag 01/22/2024 5:18 PM EDT 75 mL/hr New Bag 01/22/2024 3:45 PM EDT 75 mL/hr labetalol (Trandate) inj 10 mg 10 mg, Intravenous, Q30 MIN PRN Hypertension, SBP > 160, Starting on Sun01/22/24 at 1449, Until Sun01/23/24 at 1950, Hold for pulse less than 57. If the medication is held for this reason, please inform neurosurgery so that we can consider an alternate form of blood pressure control Given 01/22/2024 2:58 PM EDT 10 mg Losartan-hctz 25-6.25 mg per tab (Hyzaar) tab 0.5 Tablet 0.5 Tablet, Oral, Daily(AM), First dose on Sun01/23/24 at 0900, Until Discontinued Given 01/23/2024 9:19 AM EDT 0.5 Tablets losartan-hctz 50-12.5 mg per tab (Hyzaar) 1 Tablet 1 Tablet, Oral, Daily(AM), First dose on Sun01/23/24 at 0900, Until Discontinued Given 01/23/2024 9:19 AM EDT 1 T ablet metFORMIN ER (Glucophage XR) 1,000 mg 1,000 mg, Oral, BID (.AM/PM), First dose on Sun01/22/24 at 2100, Until Discontinued, METFORMIN SHOULD BE HELD FOR [...] NOT crush, cut or chew tablet. Given 01/23/2024 8:44 AM EDT 1,000 mg Given 01/22/2024 9:40 PM EDT 1,000 mg Nicotine (Nicoderm CQ) 14 MG/24HR patch 1 Patch 1 Patch, Transdermal, Daily(AM), First dose on Sun01/23/24 at 0900, Until Discontinued, Do NOT cut the patch. Remove any Nicotine patches the patient may currently be wearing prior to applying the new patch. Place on clean hairless area. Remove for patient showers. WASTE INFO: Return packaging and waste medication in zip lock bag to pharmacy - [facility] container. Patch Applied 01/23/2024 8:45 AM EDT 1 Patch Deltoid Left Upper ondansetron (Zofran) inj 4 mg 4 mg, IV Push, Q6H PRN Other, May use for nausea or vomiting if patient unable to take oral ondansetron, Starting on Sun01/22/24 at 1457, Until Sun01/23/24 at 1950 ondansetron ODT (Zofran) tab 4 mg 4 mg, On Tongue, Q6H PRN Nausea, Vomiting, Starting on Sun01/22/24 at 1457, Until Sun01/23/24 at 1950 oxyCODONE (Oxy IR) tab 5 mg 5 mg, Oral, Q4H PRN Pain, Moderate, Starting on Sun01/22/24 at 1502, Until Sun01/23/24 at 1950, Hold for somnolence or respiratory rate less than 10 Given 01/23/2024 3:21 AM EDT 5 mg Povidone-Iodine nasal swab 4 Swab 4 Swab, Nasal, PREOP, First dose on Sun01/22/24 at 0930, Last dose on Sun01/22/24 at 0930, For 1 dose, Tilt the bottle slightly, dip one swab into solution and stir vigorously for 10 seconds. Withdraw the swab slowly to avoid wiping solution off during removal. Insert swab comfortably into one nostril and rotate for 15 seconds, covering all surfaces. Then focus on the inside tip of nostril and rotate for an additional 15 seconds. Using a new swab, Repeat above steps in the other nostril (Swab 2). Repeat the application in both nostrils using a fresh swab each times (Swab 3 and 4)., Pre-Op Given 01/22/2024 9:43 AM EDT 4 Swabs Pregabalin (Lyrica) cap 150 mg 150 mg, Oral, PREOP, First dose on Sun01/22/24 at 0930, Last dose on Sun01/22/24 at 0930, For 1 dose, Reduce dose as below for CrCl Level: CrCl less than 30 ml/min = 50 mg preop CrCl 30 - 60 ml/min = 150 mg preop CrCl greater than 60 ml/min = 300 mg preop Do not use with gabapentin. Administer 60 minutes prior to OR., Pre-Op Given 01/22/2024 9:42 AM EDT 150 mg senna (Senokot) 2 Tablet 2 Tablet, Oral, Daily(AM), First dose on Sun01/23/24 at 0900, Until Discontinued, hold if patient have loose stool or frequent bowel movements Given 01/23/2024 8:45 AM EDT 2 Tablets traMADol ER (Ultram ER) tab 200 mg 200 mg, Oral, PREOP, First dose on Sun01/22/24 at 0930, Last dose on Sun01/22/24 at 0930, For 1 dose, Administer 60 minutes prior to OR , Pre-Op Given 01/22/2024 9:42 AM EDT 200 mg Vancomycin (Vancocin) 1,750 mg in NSS 500 mL ivpb 1,750 mg, IV Piggyback, PREOP, 1 dose, First dose on Sun01/22/24 at 0930, Administer at least 60 minutes prior to skin incision, Pre-Op Bolus 01/22/2024 10:46 AM EDT 1,750 mg New Bag 01/22/2024 9:38 AM EDT 1,750 mg 263.75 mL/hr documented in this encounter Active and Recently Administered Medications Times are shown in EDT. Scheduled Medication Order 01/21/2024 01/22/2024 01/23/2024 Acetaminophen (Tylenol) tab 975 mg (COMPLETED) 975 mg, Oral, PREOP, First dose on Sun01/22/24 at 0930, Last dose on Sun01/22/24 at 0930, For 1 dose, Maximum 4 g acetaminophen/day. Avoid in patients with severe hepatic impairment or severe active liver disease. Administer 60 minutes prior to OR. , Pre-Op 0942 (Given - Provider: Awa De Luna RN) Acetaminophen (Tylenol) tab 975 mg 975 mg, Oral, Q6H, First dose on Sun01/22/24 at 1800, Last dose on Sun01/27/24 at 1200, For 5 days, Maximum 4 g acetaminophen/day. Avoid in patients with severe hepatic impairment or severe active liver disease. Use for 5 days. 1722 (Given - Provider: Violeta Myers RN) 0012 (Given - Provider: Rocío Alamo RN)0629 (Given - Provider: Rocío Alamo RN)1246 (Given - Provider: SN Maurilio) Aprepitant (Emend) cap 40 mg (COMPLETED) 40 mg, Oral, ONCE, On Sun01/22/24 at 1000, For 1 dose, Pre-Op 0944 (Given - Provider: Awa De Luna RN) ceFAZolin in dextrose (Ancef) ivpb 2 g (COMPLETED) 2 g, IV Piggyback, Q8HNOW, 2 doses, First dose on Sun01/22/24 at 2200, Last dose on Sun01/23/24 at 0600 2247 (New Bag - Provider: Rocío Alamo RN)2317 (Stopped - Provider: Rocío Alamo RN) 0621 (New Bag - Provider: Rocío Alamo, KARLEE)0651 (Stopped - Provider: Violeta Vasquez RN) celecoxib (CeleBREX) cap 400 mg (COMPLETED) 400 mg, Oral, PREOP, First dose on Sun01/22/24 at 0930, Last dose on Sun01/22/24 at 0930, For 1 dose, Contraindicated in setting of CABG surgery. Do not use in patients with CrCl < 60, receiving ketorolac, bone fracture. Reduce to 200 mg PO if greater than 65 years old . Administer 60 minutes prior to OR. , Pre-Op 0942 (Given - Provider: Awa De Luna RN) chlorhexidine gluconate cloth 2 % pad 1 Pad 1 Pad, External, PREOP, First dose on Sun01/22/24 at 0930, Last dose on Sun01/22/24 at 0930, For 1 dose, Cleanse surgical site area before transferring intraop, Pre-Op 30 (Not Given - Provider: Awa De Luna RN - Reason: Awaiting Procedure) dexAMETHasone (Decadron) tab 2 mg(Linked Group 1) 2 mg, Oral, BID (.AM/PM), First dose on Sun01/28/24 at 0900, Last dose on Sun01/28/24 at 2100, For 1 day dexAMETHasone (Decadron) tab 2 mg(Linked Group 1) 2 mg, Oral, Daily(AM), First dose on Sun01/29/24 at 0900, Last dose on Sun01/29/24 at 0900, For 1 day dexAMETHasone (Decadron) tab 4 mg(Linked Group 1) 4 mg, Oral, QID(AM/NOON/PM/HS), First dose on Sun01/22/24 at 1800, Last dose on Sun01/25/24 at 1200, For 3 days 1722 (Given - Provider: Violeta Myers RN)2140 (Given - Provider: Rocío Alamo RN) 0629 (Given - Provider: Rocío Alamo RN)1246 (Given - Provider: SN Maurilio) dexAMETHasone (Decadron) tab 4 mg(Linked Group 1) 4 mg, Oral, TID(AM/NOON/HS), First dose on Sun01/25/24 at 2200, Last dose on Sun01/26/24 at 1200, For 1 day dexAMETHasone (Decadron) tab 4 mg(Linked Group 1) 4 mg, Oral, BID (.AM/PM), First dose on 01/27/24 at 0900, Last dose on Sun01/27/24 at 2100, For 1 day Docusate Sodium (Colace) cap 100 mg 100 mg, Oral, BID (.AM/PM), First dose on Sun01/22/24 at 2100, Until Discontinued, For oral administration ONLY, if route of administration is other than oral and alternative product must be ordered. 2140 (Given - Provider: Rocío Alamo RN) 0845 (Given - Provider: Feliz Ybarra RN) Famotidine (Pepcid) tab 20 mg 20 mg, Oral, Q12H, First dose on Sun01/22/24 at 2100, Until Discontinued 2139 (Given - Provider: Rocío Alamo RN) 08 (Given - Provider: Feliz Ybarra RN) gadobutrol (Gadavist) inj 11.9 mL (COMPLETED) 11.9 mL (rounded from 11.88 mL = 0.1 mL/kg 118.8 kg), Intravenous, ONCE, On Sun01/22/24 at 2030, For 1 dose, Radiology Medication Routing (Non-IR) 2029 (Given - Provider: Kumar Forbes, RT (R)(M)) hEParin inj 7,500 Units 7,500 Units, Subcutaneous, Q8H, First dose on Sun01/23/24 at 0600, Until Discontinued 627 (Given - Provid er: Rocoí Alamo RN)1331 (Given - Provider: SN Maurilio) Losartan-hctz 25-6.25 mg per tab (Hyzaar) tab 0.5 Tablet(Linked Group 2) 0.5 Tablet, Oral, Daily(AM), First dose on Sun01/23/24 at 0900, Until Discontinued 918 (Given - Provid er: Feliz Ybarra RN) losartan-hctz 50-12.5 mg per tab (Hyzaar) 1 Tablet(Linked Group 2) 1 Tablet, Oral, Daily(AM), First dose on Sun01/23/24 at 0900, Until Discontinued 918 (Given - Provid er: Feliz Ybarra RN) metFORMIN ER (Glucophage XR) 1,000 mg 1,000 mg, Oral, BID (.AM/PM), First dose on Sun01/22/24 at 2100, Until Discontinued, METFORMIN SHOULD BE HELD FOR [...] Do NOT crush, cut or chew tablet. 2139 (Given - Provider: Rocío Alamo RN) 0844 (Given - Provider: Feliz Ybarra RN) Nicotine (Nicoderm CQ) 14 MG/24HR patch 1 Patch 1 Patch, Transdermal, Daily(AM), First dose on Sun01/23/24 at 0900, Until Discontinued, Do NOT cut the patch. Remove any Nicotine patches the patient may currently be wearing prior to applying the new patch. Place on clean hairless area. Remove for patient showers. WASTE INFO: Return packaging and waste medication in zip lock bag to pharmacy - [facility] container. 0845 (Patch Applied - Provider: Feliz Ybarra RN)1550 (Due: Patch Removed - Provider: Discharge, Physician - Comment: Time automatically adjusted from order being discontinued) Povidone-Iodine nasal swab 4 Swab (COMPLETED) 4 Swab, Nasal, PREOP, First dose on Sun01/22/24 at 0930, Last dose on Sun01/22/24 at 0930, For 1 dose, Tilt the bottle slightly, dip one swab into solution and stir vigorously for 10 seconds. Withdraw the swab slowly to avoid wiping solution off during removal. Insert swab comfortably into one nostril and rotate for 15 seconds, covering all surfaces. Then focus on the inside tip of nostril and rotate for an additional 15 seconds. Using a new swab, Repeat above steps in the other nostril (Swab 2). Repeat the application in both nostrils using a fresh swab each times (Swab 3 and 4)., Pre-Op 0943 (Given - Provider: Awa De Luna RN) Pregabalin (Lyrica) cap 150 mg (COMPLETED) 150 mg, Oral, PREOP, First dose on Sun01/22/24 at 0930, Last dose on Sun01/22/24 at 0930, For 1 dose, Reduce dose as below for CrCl Level: CrCl less than 30 ml/min = 50 mg preop CrCl 30 - 60 ml/min = 150 mg preop CrCl greater than 60 ml/min = 300 mg preop Do not use with gabapentin. Administer 60 minutes prior to OR., Pre-Op 0942 (Given - Provider: Awa De Luna RN) senna (Senokot) 2 Tablet 2 Tablet, Oral, Daily(AM), First dose on Sun01/23/24 at 0900, Until Discontinued, hold if patient have loose stool or frequent bowel movements 0845 (Given - Provid er: Feliz Ybarra RN) traMADol ER (Ultram ER) tab 200 mg (COMPLETED) 200 mg, Oral, PREOP, First dose on Sun01/22/24 at 0930, Last dose on Sun01/22/24 at 0930, For 1 dose, Administer 60 minutes prior to OR , Pre-Op 0942 (Given - Provider: Awa De Luna RN) Vancomycin (Vancocin) 1,750 mg in NSS 500 mL ivpb (COMPLETED) 1,750 mg, IV Piggyback, PREOP, 1 dose, First dose on Sun01/22/24 at 0930, Administer at least 60 minutes prior to skin incision, Pre-Op 0938 (New Bag - Provider: Awa De Luna RN)1046 (Bolus - Provider: Arthur Mccurdy MD) Continuous Medication Order 01/21/2024 01/22/2024 01/23/2024 isolyte-S pH 7.4 infusion (CANCELED) Intravenous, at 75 mL/hr, Plasma-LYTE 148, isolyte-S, and isolyte-S pH 7.4 are considered equivalent - including for MAR barcode scanning., CONTINUOUS, Starting on Sun01/22/24 at 1045, Until Sun01/22/24 at 1503, Pre-Op 0938 (New Bag - Provider: Hoang De Luna RN) isolyte-S pH 7.4 infusion () Intravenous, at 75 mL/hr, Plasma-LYTE 148, isolyte-S, and isolyte-S pH 7.4 are considered equivalent - including for MAR barcode scanning., CONTINUOUS, Starting on Sun01/22/24 at 1545, Until Sun01/22/24 at 2044 1545 (New Bag - Provider: June Rosenberg RN)1718 (New Bag - Provider: Violeta Myers RN) PRN Medication Order 01/21/2024 01/22/2024 01/23/2024 Albuterol Sulfate (Proventil) (2.5 MG/3ML) 0.083% inhalation solution 2.5 mg 2.5 mg, Nebulizer, Q4H PRN Dyspnea, Starting on Sun01/22/24 at 1720, Until Sun01/23/24 at 1950 bacitracin zinc ointment (CANCELED) ONCE PRN INTRA PROCEDURE, Starting on Sun01/22/24 at 1225, Until Sun01/22/24 at 1431, Intra-Op 1225 (Given - Provider: Neo Lopez III, MD - Comment: david pin points) Bisacodyl (Dulcolax) supp 10 mg 10 mg, Rectal, DAILY PRN Constipation, Starting on Annika 01/24/24 at 0800, Until Sun01/23/24 at 1950 bupivacaine (PF) (Sensorcaine) 0.75 % inj (CANCELED) ONCE PRN INTRA PROCEDURE, Starting on Sun01/22/24 at 1403, Until Sun01/22/24 at 1431, Intra-Op 1403 (Given - Provider: Neo Lopez III, MD) hemostatic matrix (Surgiflo) syringe (CANCELED) ONCE PRN INTRA PROCEDURE, Starting on Sun01/22/24 at 1225, Until Sun01/22/24 at 1431, Intra-Op 1225 (Given - Provider: Neo Lopez III, MD) HYDROmorphone (Dilaudid) inj 0.5 mg (CANCELED) 0.5 mg, IV Push, Q15 MIN PRN Pain, Severe, Pain, Breakthrough, Starting on Sun01/22/24 at 1357, Until Sun01/22/24 at 1643, For 4 doses, Administer only postop in PACU. Hold for respiratory rate less than 12. Administer up to a total of 1mg., PACU 1457 (Given - Provider: June Rosenberg RN)1524 (Given - Provider: June Rosenberg RN) labetalol (Trandate) inj 10 mg 10 mg, Intravenous, Q30 MIN PRN Hypertension, SBP > 160, Starting on Sun01/22/24 at 1449, Until Sun01/23/24 at 1950, Hold for pulse less than 57. If the medication is held for this reason, please inform neurosurgery so that we can consider an alternate form of blood pressure control 1458 (Given - Provider: June Rosenberg RN) Lidocaine-EPINEPHrine 1 %-1:[id number] inj (CANCELED) ONCE PRN INTRA PROCEDURE, Starting on Sun01/22/24 at 1223, Until Sun01/22/24 at 1431, Intra-Op 1223 (Given - Provider: Neo Lopez III, MD) ondansetron (Zofran) inj 4 mg(Linked Group 3) 4 mg, IV Push, Q6H PRN Other, May use for nausea or vomiting if patient unable to take oral ondansetron, Starting on Sun01/22/24 at 1457, Until Sun01/23/24 at 1950 ondansetron ODT (Zofran) tab 4 mg(Linked Group 3) 4 mg, On Tongue, Q6H PRN Nausea, Vomiting, Starting on Sun01/22/24 at 1457, Until Sun01/23/24 at 1950 oxyCODONE (Oxy IR) tab 10 mg 10 mg, Oral, Q4H PRN Pain, Severe, Starting on Sun01/22/24 at 1502, Until Sun01/23/24 at 1950 oxyCODONE (Oxy IR) tab 5 mg 5 mg, Oral, Q4H PRN Pain, Moderate, Starting on Sun01/22/24 at 1502, Until Sun01/23/24 at 1950, Hold for somnolence or respiratory rate less than 10 0321 (Given - Provid er: Rocío Alamo RN) sodium chloride IR 0.9 % irrigation (CANCELED) ONCE PRN INTRA PROCEDURE, Starting on Sun01/22/24 at 1223, Until Sun01/22/24 at 1431, Intra-Op 1223 (Given - Provider: Neo Lopez III, MD - Comment: PRN on field)1224 (Given - Provider: Neo Lopez III, MD) surgicel 4x8 hemostat (CANCELED) ONCE PRN INTRA PROCEDURE, Starting on Sun01/22/24 at 1224, Until Sun01/22/24 at 1431, Intra-Op 1224 (Given - Provider: Neo Lopez III, MD) Thrombin (Thrombin-Jmi) topical soln (CANCELED) ONCE PRN INTRA PROCEDURE, Starting on Sun01/22/24 at 1224, Until Sun01/22/24 at 1431, Intra-Op 1224 (Given - Provider: Neo Lopez III, MD) vancomycin 1,000 mg in sodium chloride IR 0.9 % 1,000 mL irrigation (CANCELED) Intra-Op 1224 (Given - Provider: Neo Lopez III, MD - Comment: prior to closing) Linked Groups Order Group 1: dexAMETHasone (Decadron) tab 4 mgJump to med 4 mg, Oral, QID(AM/NOON/PM/HS), First dose on Sun01/22/24 at 1800, Last dose on Sun01/25/24 at 1200, For 3 days Followed by dexAMETHasone (Decadron) tab 4 mgJump to med 4 mg, Oral, TID(AM/NOON/HS), First dose on Sun01/25/24 at 2200, Last dose on Sun01/26/24 at 1200, For 1 day Followed by dexAMETHasone (Decadron) tab 4 mgJump to med 4 mg, Oral, BID (.AM/PM), First dose on Sun01/27/24 at 0900, Last dose on Sun01/27/24 at 2100, For 1 day Followed by dexAMETHasone (Decadron) tab 2 mgJump to med 2 mg, Oral, BID (.AM/PM), First dose on Sun01/28/24 at 0900, Last dose on Sun01/28/24 at 2100, For 1 day Followed by dexAMETHasone (Decadron) tab 2 mgJump to med 2 mg, Oral, Daily(AM), First dose on Sun01/29/24 at 0900, Last dose on Sun01/29/24 at 0900, For 1 day Group 2: losartan-hctz 50-12.5 mg per tab (Hyzaar) 1 TabletJump to med 1 Tablet, Oral, Daily(AM), First dose on Sun01/23/24 at 0900, Until Discontinued And Losartan-hctz 25-6.25 mg per tab (Hyzaar) tab 0.5 TabletJump to med 0.5 Tablet, Oral, Daily(AM), First dose on Sun01/23/24 at 0900, Until Discontinued Group 3: ondansetron ODT (Zofran) tab 4 mgJump to med 4 mg, On Tongue, Q6H PRN Nausea, Vomiting, Starting on Sun01/22/24 at 1457, Until Sun01/23/24 at 1950 Or ondansetron (Zofran) inj 4 mgJump to med 4 mg, IV Push, Q6H PRN Other, May use for nausea or vomiting if patient unable to take oral ondansetron, Starting on Sun01/22/24 at 1457, Until Sun01/23/24 at 1950 documented in this encounter Advance Directives * [...] Discussed due to patient's condition Care Teams Director Of Strategic Sales Relationship Specialty Start Date End Date Beverly Gonzales CRNP [address] [place] [id number] PCP - General Nurse Practitioner 04/24/23 documented as of this encounter
--- OUTSIDE RECORDS SUMMARY | 2024-05-06 16:18 | External Medical Summary ---
Author Name Unknown Address Unknown Organization [id number]:[facility] [place] [address] [facility] [address] Laboratory Report Ordering Provider Test Date Status ISABELLE ALVARADO 01/22/2024 15:35:01 Final Observation Date Value Abnormality Reference (Units ) Status BUN 01/22/2024 15:35:01 18 6-20 (mg/dL) Final Creatinine 01/22/2024 15:35:01 0.8 0.6-1.2 (mg/dL) Final Glomerular filtration rate/1.73 sq M.predicted [Volume Rate/Area] in Serum, Plasma or Blood by Creatinine-based formula (CKD-EPI) 01/22/2024 15:35:01 >90 >=60 (mL/min) Final eGFR is calculated based on the CKD-EPI 2020 equation. Sodium 01/22/2024 15:35:01 138 135-146 (m mol/L) Final Potassium 01/22/2024 15:35:01 3.8 3.5-5.1 (m mol/L) Final Cl 01/22/2024 15:35:01 104 98-107 (mm ol/L) Final CO2 01/22/2024 15:35:01 22 22-32 (mmo l/L) Final Anion gap 01/22/2024 15:35:01 12 7-15 (mmol /L) Final Glucose 01/22/2024 15:35:01 153 Above high normal 70 -120 (mg/dL) Final Calcium 01/22/2024 15:35:01 7.7 Below low normal 8.4 -10.2 (mg/dL) Final Performing Location [facility] [place] [address] [facility] [address]
--- OUTSIDE RECORDS SUMMARY | 2024-05-06 16:18 | External Medical Summary | Summary of Care ---
Author Name Unknown Organization [facility] Address [address] [place] [address] Phone [phone] Care Team Providers Care Contact Center Director Name Role Phone Janet Beverly OCHOA Primary Care Provider Encounter Details Date Type Department Care Team (Latest Contact Info) Description 01/16/2024 6:50 AM EDT - 01/16/2024 6:59 AM EDT Hospital Encounter Radiology Film File [address] [place] [address] Arrived Discharge Disposition: Home - [...] from CPAP to BIPAP [facility] Morbid obesity 12/18/2014 Overview: Per Obesity protocol [...] 01/22/2024 10:09 AM EDT Hospital Encounter [place] [facility] [place] [facility] [address] [place] [address] Neo Lopez III, MD [address], [place] [phone] 01/22/2024 10:09 AM EDT - 01/22/2024 4:07 PM EDT Surgery [place] [facility] [place] [address] [place] [phone] Noe Lopez III, MD [address], [place] [phone] CRANIOTOMY BONE FLAP EXCISION BRAIN TUMOR SUPRATENTORIAL 01/24/2024 10:30 AM EDT Scheduled Telephone Neurosurgery, [place] [address] [facility] [place] [address] [place] Nurse Follow Up Phone Call Neurosurg [address] [facility] [address] 02/05/2024 9:20 AM EST Office Visit Neurosurgery, [place] [address] [place] [address] Lorenzo Vallejo IV, PA-C [address] [place] [address] Scheduled Procedures Name Priority Associated Diagnoses Date/Ti [...] CT (IMAGES ONLY, NO REPORT) Routine 01/16/2024 6:50 AM EDT documented in this encounter Results * RADIOLOGY EXAM - CT (IMAGES ONLY, NO REPORT) (01/16/2024 6:50 AM EDT) 01/16/2024 6:39 AM EDT Narrative Scheduling, Silent - 01/17/2024 11:23 AM EDT This is an imaging study not interpreted or resulted by a [facility] or [facility] contracted radiologist. Jim Segura DO RAD CT documented in this encounter Advance Directives * Full Code (Latest Code Status on File) Date Activated Date Inactivated Comments 01/16/2024 9:25 PM This order re flects the patients wishes and were consensually agreed upon. Question Answer Comments Discussion of Advance Direct isa occurred with: Not Discussed due to patient's condition Care Teams Contact Center Director Relationship Specialty Start Date End Date Beverly Gonzales CRNP [address] [place] [address] PCP - General Nurse Practitioner 04/24/23 documented as of this encounter
--- OUTSIDE RECORDS SUMMARY | 2024-05-06 16:18 | External Medical Summary ---
Author Name Unknown Address Unknown Organization [id number]:[facility] [place] - [facility] [address] [facility] [address] Laboratory Report Ordering Provider Test Date Status ISABELLE ALVARADO 01/22/2024 15:35:01 Final Observation Date Value Abnormality Reference (Units ) Status WBC, Total 01/22/2024 15:35:01 13.46 Above high normal 4.00-10.80 (K/uL) Final RBC 01/22/2024 15:35:01 5.02 4.50-5.25 (M/uL) Final Hemoglobin 01/22/2024 15:35:01 14.8 14.0-16.8 (g/dL) Final HCT 01/22/2024 15:35:01 42.9 40.0-48.4 (%) Final MCV 01/22/2024 15:35:01 85.5 82.0-99.5 (fL) Final MCH 01/22/2024 15:35:01 29.5 27.0-34.0 (pg) Final MCHC 01/22/2024 15:35:01 34.5 32.0-36.0 (g/dL) Final RDW 01/22/2024 15:35:01 13.5 11.5-15.5 (%) Final Platelets 01/22/2024 15:35:01 238 140-400 (K/uL) Final MPV 01/22/2024 15:35:01 10.5 6.6-11.1 (fL) Final Nucleated erythrocytes/100 leukocytes [Ratio] in Blood by Automated count 01/22/2024 15:35:01 0 <=0 (/100 WBCs) Final Performing Location [facility] [place] - [address] [facility] [address]
--- OUTSIDE RECORDS SUMMARY | 2024-05-06 16:18 | External Medical Summary | Summary of Care ---
Author Name Unknown Organization [facility] Address [address] [place] [address] Phone [phone] Care Team Providers Care Gasoline Attendant Name Role Phone Janet Beevrly OCHOA Primary Care Provider Encounter Details Date Type Department Care Team (Latest Contact Info) Description 01/16/2024 6:40 AM EDT - 01/16/2024 6:44 AM EDT Hospital Encounter Radiology Film File [address] [place] [address] Arrived Discharge Disposition: Home - [...] 01/22/2024 10:09 AM EDT Hospital Encounter [place] [facility] [place] [facility] [address] [place] [address] Neo Loepz III, MD [address] [place], [place] [phone] 01/22/2024 10:09 AM EDT - 01/22/2024 4:07 PM EDT Surgery [place] [facility] [place] [facility] [facility] [address] [place] [phone] Neo Lopez III, MD [address] [place], [place] [phone] CRANIOTOMY BONE FLAP EXCISION BRAIN TUMOR SUPRATENTORIAL 01/24/2024 10:30 AM EDT Scheduled Telephone Neurosurgery, [place] [address] [facility] [place] [address] [place] Nurse Follow Up Phone Call Neurosurg [address] [facility] [place] [address] 02/05/2024 9:20 AM EST Office Visit Neurosurgery, [place] [address] [place] [address] Lorenzo Vallejo IV, PA-C [address] [place] [address] Scheduled Procedures Name Priority Associated Diagnoses Date/Ti [...] CT (IMAGES ONLY, NO REPORT) Routine 01/16/2024 6:40 AM EDT documented in this encounter Results * RADIOLOGY EXAM - CT (IMAGES ONLY, NO REPORT) (01/16/2024 6:40 AM EDT) 01/16/2024 6:39 AM EDT Narrative Scheduling, Silent - 01/17/2024 11:21 AM EDT This is an imaging study not interpreted or resulted by a [facility] or [facility] radiologist. Jim Segura DO RAD CT documented in this encounter Advance Directives * Full Code (Latest Code Status on File) Date Activated Date Inactivated Comments 01/16/2024 9:25 PM This order re flects the patients wishes and were consensually agreed upon. Question Answer Comments Discussion of Advance Direct isa occurred with: Not Discussed due to patient's condition Care Teams Gasoline Attendant Relationship Specialty Start Date End Date Beverly Gonzales CRNP [address] [place] [address] PCP - General Nurse Practitioner 04/24/23 documented as of this encounter
--- OUTSIDE RECORDS SUMMARY | 2024-05-06 16:18 | External Medical Summary ---
Author Name Unknown Address Unknown Organization K01:[facility] [place] [address] [place] [address] Laboratory Report Ordering Provider Test Date Status JORGE ESCOBAR III 01/22/2024 09:18:26 Final Observation Date Value Abnormality Reference (Units ) Status ABO 01/22/2024 09:18:26 A Final RH 01/22/2024 09:18:26 Negative Final RED BLOOD CELL ANTIBODY SCREEN 01/22/2024 09:18:26 Negative Final SPECIMEN EXPIRATION DATE 01/22/2024 09:18:26 01/25/2024 23:59 Final Performing Location [facility] - [address] [place] [address]
--- OUTSIDE RECORDS SUMMARY | 2024-05-06 16:19 | External Medical Summary ---
Author Name Unknown Address Unknown Organization K01:[facility] [place] - [address] [place] [address] Laboratory Report Ordering Provider Test Date Status KRYSTINDALIA 01/16/2024 21:55:00 Final Warfarin Therapy
INR: 2 .0-3.0 conventional anticoagulation
INR: 2.5- 3.5 high intensity anticoagulation Observation Date Value Abnormality Reference (Units ) Status PT 01/16/2024 21:55:00 13.4 11.6-15.2 (seconds) Final INR 01/16/2024 21:55:00 1.0 0.8-1.2 Final Performing Location [facility] [place] - [address] [place] [address]
--- OUTSIDE RECORDS SUMMARY | 2024-05-06 16:19 | External Medical Summary ---
Author Name Unknown Address Unknown Organization K01:[facility] [place] [address] [place] [address] Laboratory Report Ordering Provider Test Date Status DALIA MCCLELLAND 01/16/2024 21:55:00 Final Observation Date Value Abnormality Reference (Units ) Status WBC, Total 01/16/2024 21:55:00 13.27 Above high normal 4.00-10.80 (K/uL) Final RBC 01/16/2024 21:55:00 5.74 4.50-5.25 (M/uL) Final Hemoglobin 01/16/2024 21:55:00 16.6 14.0-16.8 (g/dL) Final HCT 01/16/2024 21:55:00 48.5 Above high normal 40.0-48.4 (%) Final MCV 01/16/2024 21:55:00 84.5 82.0-99.5 (fL) Final MCH 01/16/2024 21:55:00 28.9 27.0-34.0 (pg) Final MCHC 01/16/2024 21:55:00 34.2 32.0-36.0 (g/dL) Final RDW 01/16/2024 21:55:00 13.2 11.5-15.5 (%) Final Platelets 01/16/2024 21:55:00 293 140-400 (K/uL) Final MPV 01/16/2024 21:55:00 10.2 6.6-11.1 (fL) Final Nucleated erythrocytes/100 leukocytes [Ratio] in Blood by Automated count 01/16/2024 21:55:00 0 <=0 (/100 WBCs) Final Performing Location [facility] [place] - [address] [place] [address]
--- OUTSIDE RECORDS SUMMARY | 2024-05-06 16:19 | External Medical Summary ---
Author Name Unknown Address Unknown Organization K01[place] [place] [address] [place] [address] Laboratory Report Ordering Provider Test Date Status DALIA MCCLELLAND 01/16/2024 21:55:00 Final Anticoagulation may affect t esting. Refer to [facility] Test Catalog for a list of effects. Observation Date Value Abnormality Reference (Units ) Status aPTT panel - Platelet poor plasma 01/16/2024 21:55:00 26 21-38 (seconds) Final Performing Location [facility] [place] [address] [place] [address]
--- OUTSIDE RECORDS SUMMARY | 2024-05-06 16:19 | External Medical Summary ---
Author Name Unknown Address Unknown Organization K01:LABORATORY [facility] - [address] [place] [address] Laboratory Report Ordering Provider Test Date Status DALIA MCCLELLAND 01/16/2024 21:55:00 Final Observation Date Value Abnormality Reference (Units ) Status Phosphate 01/16/2024 21:55:00 3.2 2.5-4.8 (m g/dL) Final Performing Location LABORATORY [facility] - [address] [place] [address]
--- OUTSIDE RECORDS SUMMARY | 2024-05-06 16:19 | External Medical Summary | Summary of Care ---
Author Name Unknown Organization [facility] Address [address] [place] [address] Phone [phone] Care Team Providers Care Tutor Coordinator Name Role Phone FaizanhenryBeverly Aurora OCHOA Primary Care Provider Encounter Details Date Type Department Care Team (Late st Contact Info) Description 01/17/2024 Telephone [facility] [address] [place] [address] Neo Lopez III, MD [address] [place] [address] Allergies No known active allergiesdocumented as of this encounter (statuses as of 01/17/2024) Medications Medication Sig Dispensed Refills Start Date End Date Status BiPAP every night at bedtime . Suspended Ventolin HFA 108 (90 Base) MCG/ACT Inhalation Aerosol Solution Inhale 2 Puffs by mouth every 4 hours as needed for Cough, Shortness of Breath or Wheezing. 18 g 1 04/24/2023 Suspended Additional Information metFORMIN HCl ER 500 MG Oral Tablet Extended Release 24 Hour (Glucophage XR) Take 2 tablets by mouth twice daily 120 Tablet 2 11/20/2023 Suspended Additional Information Losartan Potassium-HCTZ 50-12.5 MG Oral Tablet (Hyzaar) take 1 AND 1/2 tablets by mouth every morning 135 Tablet 12/24/2023 Suspended Additional Information Mounjaro 2.5 MG/0.5ML Subcutaneous Solution Pen-injector (Tirzepatide)Evelin cations:Type 2 diabetes mellitus without complication, without long-term current use of insulin (HCC) INJECT 1 SYRINGE SUBCUTANEOUSLY ONCE A WEEK 2 mL 01/09/2024 Suspended Additional Information documented as of this encounter (statuses as of 01/17/2024) Active Problems Problem Noted Date Diagnosed Date [...] hypoxemia, suboptimal titration from CPAP to BIPAP [facility] Snoring 12/18/2014 Hypersomnia 12/18/2014 documented as of this encounter (statuses as of 01/17/2024) Resolved Problems Problem Noted Date Diagnosed Date Resolved Date Elevated LFTs 05/04/2021 05/04/2022 BMI 50.0-59.9, adult 12/25/201605/10/ 024 Overview: Per Obesity protocol #1 Morbid obesity 12/18/2014 12/28/2016 Overview: Per Obesity protocol #1 NO KNOWN PROBLEMS 11/14/2014 12/18/2014 documented as of this encounter (statuses as of 01/17/2024) Immunizations Name Administration Dates Next Due TDAP [...] encounter Miscellaneous Notes * Telephone Encounter - Jessica AGUIRRE, Neo Mendoza MD - 01/17/2024 1:55 PM EDT Case order request documented in this encounter Plan of Treatment Upcoming Encounters Date Type Department Care Team (Late st Contact Info) Description 01/22/2024 Hospital Encounter [facility] [place] [address] [place] [phone] Neo Lopez III, MD [address] [place], [place] [phone] Scheduled Procedures Name Priority Associated Diagnoses Date/Ti me CRANIOTOMY BONE FLAP EXCISIO N BRAIN TUMOR SUPRATENTORIAL Malignant neoplasm of parietal lobe (HCC) MICROSURGICAL SURGERY REQUIR ING MICROSCOPE LISTED SEPARATELY Malignant neoplasm of parietal lobe (HCC) Health Maintenance Due Date Last Done Comments [...] Not on filedocumented as of this encounter Visit Diagnoses Diagnosis Malignant neoplasm of parietal lobe (HCC)- Primary 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 Question Answer Comments Discussion of Advance Direct isa occurred with: Not Discussed due to patient's condition Care Teams Tutor Coordinator Relationship Specialty Start Date End Date Beverly Gonzales CRNP [address] [place] [address] PCP - General Nurse Practitioner 04/24/23 documented as of this encounter
--- OUTSIDE RECORDS SUMMARY | 2024-05-06 16:19 | External Medical Summary ---
Author Name Unknown Address Unknown Organization [id number]:[facility] [place] - [address] [facility] [place] [address] Laboratory Report Ordering Provider Test Date Status DALIA MCCLELLAND 01/16/2024 21:55:00 Final Observation Date Value Abnormality Reference (Units ) Status SYNC LEUKOCYTES IN BLOOD BY AUTOMATED COUNT 01/16/2024 21:55:00 13.27 Above high normal 4.00-10.80 (K/uL) Final Segs 01/16/2024 21:55:00 85.5 Above high normal 40.0-75.0 (%) Final Lymphs % 01/16/2024 21:55:00 7.9 Below low normal 18.0-42.0 (%) Final Monos 01/16/2024 21:55:00 5.9 1.0-11.0 (%) Final Eosinophils 01/16/2024 21:55:00 0.0 0.0-6.0 (%) Final Basos 01/16/2024 21:55:00 0.2 0.0-2.0 (%) Final Immature Granulocyte, Percent 01/16/2024 21:55:00 0.5 0.0-2.0 (%) Final Absolute Segs 01/16/2024 21:55:00 11.36 Above high normal 1.80-7.70 (K/uL) Final Lymphs, absolute 01/16/2024 21:55:00 1.05 1.00-4.80 (K/ul) Final Monos, Abs 01/16/2024 21:55:00 0.78 0.00-1.10 (K/uL) Final Eos, Abs 01/16/2024 21:55:00 0.00 0.00-0.70 (K/uL) Final Basos, Abs 01/16/2024 21:55:00 0.02 0.00-0.20 (K/uL) Final Immature Granulocytes, Number 01/16/2024 21:55:00 0.06 0.00-0.20 (K/uL) Final Performing Location [facility] [place] - [facility] [address] [place] [address]
--- OUTSIDE RECORDS SUMMARY | 2024-05-06 16:19 | External Medical Summary | Summary of Care ---
Author Name Unknown Organization [facility] Address [address] [place] [address] Phone [phone] Care Team Providers Care Neurology Physician Assistant Name Role Phone Janet Beverly OCHOA Primary Care Provider Encounter Details Date Type Department Care Team (Latest Contact Info) Description 01/16/2024 7:00 AM EDT - 01/16/2024 12:26 PM EDT Hospital Encounter Radiology Film File [address] [place] [address] Arrived Discharge Disposition: Home - [...] 01/22/2024 10:09 AM EDT Hospital Encounter [place] [facility] [place] [address] [place] [address] Neo Lopez III, MD [address], [place] [id number] 01/22/2024 10:09 AM EDT - 01/22/2024 4:07 PM EDT Surgery OR [facility] [place] [address] [place] [phone] Neo Lopez III, MD [address] [place], [place] [id number] CRANIOTOMY BONE FLAP EXCISION BRAIN TUMOR SUPRATENTORIAL 01/24/2024 10:30 AM EDT Scheduled Telephone Neurosurgery, [place] [address] [facility] [place] [address] [place] Nurse Follow Up Phone Call Neurosurg [address] [facility] [place] [address] 02/05/2024 9:20 AM EST Office Visit Neurosurgery, [place] [address] [place] [address] Lorenzo Vallejo IV, PA-C [address] [place] [address] Scheduled Procedures Name Priority Associated Diagnoses Date/Ti [...] Date/Time Associated Diagnosis Comments RADIOLOGY EXAM - GENERAL RAD (IMAGES ONLY,NO REPORT) Routine 01/16/2024 7:00 AM EDT documented in this encounter Results * RADIOLOGY EXAM - GENERAL RAD (IMAGES ONLY,NO REPORT) (01/16/2024 7:00 AM EDT) 01/16/2024 6:57 AM EDT Narrative Scheduling, Silent - 01/17/2024 11:24 AM EDT This is an imaging study not interpreted or resulted by a [facility]. Jim Jesus Imelda RADIOLOGY (RAD GEN ERAL) documented in this encounter Advance Directives * Full Code (Latest Code Status on File) Date Activated Date Inactivated Comments 01/16/2024 9:25 PM This order re flects the patients wishes and were consensually agreed upon. Question Answer Comments Discussion of Advance Direct isa occurred with: Not Discussed due to patient's condition Care Teams Neurology Physician Assistant Relationship Specialty Start Date End Date Beverly Gonzales CRNP [address] [place] [address] PCP - General Nurse Practitioner 04/24/23 documented as of this encounter
--- OUTSIDE RECORDS SUMMARY | 2024-05-06 16:19 | External Medical Summary | Summary of Care ---
Author Name Unknown Organization [facility] Address [address] [place] [address] Phone [phone] Care Team Providers Care Information Systems Security Officer Name Role Phone Beverly Gonzales Primary Care Provider Encounter Details Date Type Department Care Team (Late st Contact Info) Description 01/16/2024 Orders Only Unspecified Department ImeldaJim Jesus, DO [address] [place], [place] [phone] Allergies No known active allergiesdocumented as of this encounter (statuses as of 01/17/2024) Medications Medication Sig Dispensed Refills Start Date End Date Status BiPAP every night at bedtime . Suspended Ventolin HFA 108 (90 Base) MCG/ACT Inhalation Aerosol Solution Inhale 2 Puffs by mouth every 4 hours as needed for Cough, Shortness of Breath or Wheezing. 18 g 1 04/24/2023 Suspended Additional Information Benzonatate 100 MG Oral Capsule Take 1 Capsule by mouth 3 times a day as needed for Cough. 30 Capsule 1 04/24/2023 Suspended Additional Information Patient not taking.Reported on 05/16/2023 metFORMIN HCl ER 500 MG Oral Tablet [...] hypoxemia, suboptimal titration from CPAP to BIPAP [facility] 12/18/2014 Hypersomnia 12/18/2014 documented as of [...] as of this encounter Plan of Treatment Health Maintenance Due Date Last Done Comments [...] Additional history exists COVID-19 Vaccine ( - 2023-25 season) 2023 Influenza Vaccine (FLU shot) (#1) [...] interpreted or resulted by a [facility] radiologist. Jim Segura DO RAD CT documented in this encounter Advance Directives * Full Code (Latest Code Status on File) Date Activated Date Inactivated Comments 01/16/2024 9:25 PM This order re flects the patients wishes and were consensually agreed upon. Question Answer Comments Discussion of Advance Direct isa occurred with: Not Discussed due to patient's condition Care Teams Information Systems Security Officer Relationship Specialty Start Date End Date Beverly Gonzales CRNP [address] [address] PCP - General Nurse Practitioner 04/24/23 documented as of this encounter
--- OUTSIDE RECORDS SUMMARY | 2024-05-06 16:19 | External Medical Summary | Summary of Care ---
Author Name Unknown Organization [facility] Address [address] [place] [address] Phone [phone] Care Team Providers Care Apprentice Jockey Name Role Phone Beverly Gonzales Primary Care Provider Encounter Details Date Type Department Care Team (Late st Contact Info) Description 01/16/2024 Orders Only Unspecified Department ImeldaJim Jesus, DO [address] [place], [place] [phone] Allergies No known active allergiesdocumented as of [...] hypoxemia, suboptimal titration [facility] CPAP [facility]AP [facility] 12/18/2014 Hypersomnia 12/18/2014 documented as of [...] interpreted or resulted by [facility]. Jim Segura DO RAD CT documented in this encounter Advance Directives * Full Code (Latest Code Status on File) Date Activated Date Inactivated Comments 01/16/2024 9:25 PM This order re flects the patients wishes and were consensually agreed upon. Question Answer Comments Discussion of Advance Direct isa occurred with: Not Discussed due to patient's condition Care Teams Apprentice Jockey Relationship Specialty Start Date End Date Beverly Gonzales CRNP [address] [address] PCP - General Nurse Practitioner 04/24/23 documented as of this encounter
--- OUTSIDE RECORDS SUMMARY | 2024-05-06 16:19 | External Medical Summary | Summary of Care ---
Author Name Unknown Organization [facility] Address [address] [place] [address] Phone [phone] Care Team Providers Care Photography Sales Associate Name Role Phone Beverly Gonzales Primary Care Provider Encounter Details Date Type Department Care Team (Late st Contact Info) Description 01/16/2024 Orders Only Unspecified Department ImeldaJim Jesus, DO [address] [place], [place] [phone] Allergies No known active allergiesdocumented as of [...] hypoxemia, suboptimal titration from CPAP to BIPAP [facility] Sn[facility] 12/18/2014 Hypersomnia 12/18/2014 documented as [...] interpreted or resulted by a [facility]. Jim Segura DO RAD CT documented in this encounter Advance Directives * Full Code (Latest Code Status on File) Date Activated Date Inactivated Comments 01/16/2024 9:25 PM This order re flects the patients wishes and were consensually agreed upon. Question Answer Comments Discussion of Advance Direct isa occurred with: Not Discussed due to patient's condition Care Teams Photography Sales Associate Relationship Specialty Start Date End Date Beverly Gonzales CRNP [address] [address] PCP - General Nurse Practitioner 04/24/23 documented as of this encounter
--- OUTSIDE RECORDS SUMMARY | 2024-05-06 16:19 | External Medical Summary ---
Author Name Unknown Address Unknown Organization [id number]:[facility] [place] - [address] [place] [address] Laboratory Report Ordering Provider Test Date Status DALIA MCCLELLAND 01/17/2024 11:39:56 Final Observation Date Value Abnormality Reference (Units ) Status Staphylococcus aureus methicillin resistance [facility] [Presence] in Nose by POLY with probe detection 01/17/2024 11:39:56 Indeterminate. Repeat testing recommended. Abnormal Negative Final Methicillin susceptible Staphylococcus aureus DNA [Presence] in Specimen by POLY with probe detection 01/17/2024 11:39:56 Indeterminate. Repeat testing recommended. Abnormal Negative Final Performing Location [facility] [place] - [address] [place] [address]
--- OUTSIDE RECORDS SUMMARY | 2024-05-06 16:19 | External Medical Summary | Summary of Care ---
Author Name Unknown Organization [facility] Address [address] [place] [address] Phone [phone] Care Team Providers Care Cableman Name Role Phone FaizanhenryBeverly Aurora OCHOA Primary Care Provider Encounter Details Date Type Department Care Team (Late st Contact Info) Description 01/17/2024 Telephone [facility] [address] [place] [address] Neo Lopez III, MD [address] [place] [address] Allergies No known active allergiesdocumented [...] Noted Date Diagnosed Date Brain compression 01/17/2024 Brain mass 01/16/2024 Cerebral edema 01/16/2024 [...] to BIPAP [facility] Snoring 12/18/2014 Hypersomnia 12/18/2014 documented as of [...] encounter Miscellaneous Notes * Telephone Encounter - Neo Lopez III, MD - 01/17/2024 1:55 PM EDT Case order request documented in this encounter Plan of Treatment Scheduled Procedures Name Priority Associated Diagnoses Date/Ti me CRANIOTOMY BONE FLAP EXCISIO N BRAIN TUMOR SUPRATENTORIAL Malignant neoplasm of parietal lobe (HCC) Health [...] Inactivated Comments 01/16/2024 9:25 PM This order r eflects the patients wishes and were consensually agreed upon. Question Answer Comments Discussion of Advance Direct isa occurred with: Not Discussed due to patient's condition Care Teams Cableman Relationship Specialty Start Date End Date Beverly Gonzales CRNP [address] [place] [address] PCP - General Nurse Practitioner 04/24/23 documented as of this encounter
--- OUTSIDE RECORDS SUMMARY | 2024-05-06 16:19 | External Medical Summary ---
Author Name Unknown Address Unknown Organization K01:[facility] - [address] [place] [address] Laboratory Report Ordering Provider Test Date Status DALIA MCCLELLAND 01/16/2024 21:55:00 Final Observation Date Value Abnormality Reference (Units ) Status Magnesium 01/16/2024 21:55:00 2.0 1.5-2.6 (m g/dL) Final Performing Location [facility] - [address] [place] [address]
--- OUTSIDE RECORDS SUMMARY | 2024-05-06 16:19 | External Medical Summary | Summary of Care ---
Author Name Unknown Organization [facility] Address [address] [place] [address] Phone [phone] Care Team Providers Care Dry Box Tender Name Role Phone Beverly Gonzales Primary Care Provider Encounter Details Date Type Department Care Team (Late st Contact Info) Description 01/16/2024 Orders Only Unspecified Department ImeldaJim Jesus, DO [address] [place], [place] [phone] Allergies No known active allergiesdocumented as of [...] hypoxemia, suboptimal titration from CPAP to BIPAP [facility] 12/18/2014 Hypersomnia 12/18/2014 documented as [...] Additional history exists COVID-19 Vaccine ( - 2024-25 season) 2023 Influenza Vaccine (FLU shot) (#1) [...] interpreted or resulted [facility] a [facility]. Jim Segura RADIOLOGY (RAD GEN ERAL) documented in this encounter Advance Directives * Full Code (Latest Code Status on File) Date Activated Date Inactivated Comments 01/16/2024 9:25 PM This order re flects the patients wishes and were consensually agreed upon. Question Answer Comments Discussion of Advance Direct isa occurred with: Not Discussed due to patient's condition Care Teams Dry Box Tender Relationship Specialty Start Date End Date Beverly Gonzales CRNP [address] [address] PCP - General Nurse Practitioner 04/24/23 documented as of this encounter
--- OUTSIDE RECORDS SUMMARY | 2024-05-06 16:19 | External Medical Summary ---
Author Name Unknown Address Unknown Organization K01:[facility] [place] - [address] [facility] [address] [place] [address] Laboratory Report Ordering Provider Test Date Status DALIA MCCLELLAND 01/16/2024 21:55:00 Final Observation Date Value Abnormality Reference (Units ) Status BUN 01/16/2024 21:55:00 16 6-20 (mg/dL) Final Creatinine 01/16/2024 21:55:00 0.8 0.6-1.2 (mg/dL) Final Glomerular filtration rate/1.73 sq M.predicted [Volume Rate/Area] in Serum, Plasma or Blood by Creatinine-based formula (CKD-EPI) 01/16/2024 21:55:00 >90 >=60 (mL/min) Final eGFR is calculated based on the CKD-EPI 2020 equation. Sodium 01/16/2024 21:55:00 138 135-146 (m mol/L) Final Potassium 01/16/2024 21:55:00 3.6 3.5-5.1 (m mol/L) Final Cl 01/16/2024 21:55:00 104 98-107 (mm ol/L) Final CO2 01/16/2024 21:55:00 22 22-32 (mmo l/L) Final Anion gap 01/16/2024 21:55:00 12 7-15 (mmol /L) Final Glucose 01/16/2024 21:55:00 164 Above high normal 70 -120 (mg/dL) Final Calcium 01/16/2024 21:55:00 9.3 8.4-10.2 ( mg/dL) Final Performing Location [facility] [place] - [address] [place] [address]
[2024-05-06] MEDS ORDERED: GLUCOSE 10 TAB/TUBE PO PRN (17:18)
[2024-05-06] MEDS ORDERED: ALUMINUM/MAGNESIUM SUSP 30 ML UDC PO PRN (17:18)
[2024-05-06] MEDS ORDERED: GLUCAGON FOR INJ 1 MG VIAL SQ PRN (17:18)
[2024-05-06] MEDS ORDERED: ONDANSETRON INJ 2 MG/ML 2 ML VIAL IV PRN (17:18)
[2024-05-06] MEDS ORDERED: CARBOHYDRATES FOR HYPOGLYCEMIA PO PRN (17:18)
[2024-05-06] MEDS ORDERED: POLYETHYLENE (MIRALAX) 17 GM PACK PO PRN (17:18)
[2024-05-06] MEDS ORDERED: PHARMACY GLYCEMIC MGMT CONSULT PRN (17:18)
[2024-05-06] MEDS ORDERED: DEXTROSE 50% 50 ML SYRINGE IV PRN (17:18)
[2024-05-06] MEDS ORDERED: GLUCOSE 40% GEL 15 GM TUBE PO PRN (17:18)
[2024-05-06] MEDS ORDERED: MAGNESIUM HYDROXIDE SUSP 30 ML UDC PO PRN (17:18)
--- NOTE | 2024-05-06 18:42 | Electrocardiogram Report ---
Test Reason : Blood Pressure : */* mmHG Vent. Rate : 138 BPM Atrial Rate : 138 BPM P-R Int : 126 ms QRS Dur : 78 ms QT Int : 288 ms P-R-T Axes : 54 31 51 degrees QTcB Int : 436 ms Poor data quality, interpretation may be adversely affected Sinus tachycardia Nonspecific T wave abnormality Abnormal ECG When compared with ECG of 16-Jan-2024 06:27, Vent. rate has increased by 61 bpm Confirmed by Shaggy Wen ([id number]) on 05/06/2024 6:41:54 PM Referred By: REFERRED SELF Confirmed By: Shaggy Wen
--- NOTE | 2024-05-06 18:48 | XRay Report ---
EXAM: X-ray orbits for MRI Reason for exam: Screening for MRI foreign body Previous studies: None FINDINGS: 2 metallic plates are seen over the left posterior parietal region with multiple screws as well as underlying calvarial flap defect. No intraorbital foreign body of a radiopaque nature is seen. IMPRESSION: 1. Negative for radiopaque intraorbital bodies. 2. Metallic plates present status post previous left posterior parietal craniotomy. Electronically signed by Tato Raymond 05-06-2024 6:48 PM
[2024-05-06] MEDS: INSULIN ASPART PER UNIT CHARGE SC SCH (19:05)
[2024-05-06] MEDS: GADOBUTROL 65ML VIAL IV ONE (19:18)
[2024-05-06] MEDS: PANTOprazole 40 MG TAB PO SCH (20:15)
[2024-05-06] MEDS: dexAMETHasone 4 MG TAB PO SCH (20:15)
[2024-05-06] MEDS ORDERED: LANTUS PER UNIT CHARGE SQ SCH (21:00)
--- NOTE | 2024-05-06 21:16 | Pharmacy Report ---
Pharmacy Glycemic Short Note 2 - Date of Service May 06, 2024 - Glycemic Short BSG Results (Last 24 hours): 05/06/24 05/06/24 05/06/24 09:34 17:49 19:34 Glucose 203 H POC Glucose 185 H 158 H OUTPATIENT ANTIDIABETIC REGIMEN: * metformin 1 gm bid, mounjaro 2.5 mg sq weekly ASSESSMENT: * 53 year old admitted with weakness, recently s/p chemo/radiation last month. Pharmacy consulted for glycemic management, type 2 diabetic. Previously on dexamethasone 4 mg bid outpatient, but dose recently reduced to daily. BID dosing started on admission. Will start novolog for now, will consider basal insulin if fasting BSG elevated. Unclear most recent A1c - ordered lab for tomorrow. PLAN FOR INPATIENT GLYCEMIC CONTROL: * Hold outpatient oral diabetes medications * Basal insulin * Lantus - hold * Bolus insulin * NovoLog per scale ACHS or Q6hrs while NPO * Goal Range: Low 110 mg/dL - High 140 mg/dL * Correction Factor: 20 mg/dL/unit * Nutritional / Prandial insulin per carb ratio of 1 unit per 8 grams CHO consumed
--- NOTE | 2024-05-06 21:53 | Magnetic Resonance Report ---
EXAM: MR brain wo/w con CLINICAL HISTORY: weakness right side weakness episode today. Symptoms have resolved hx of prior glioblastoma removed 01/22/24. TECHNIQUE: Different pulse sequences were performed in different planes for the brain without and with GD-DTPA injection. 12.5ml gadavist was injected intravenously without complications. Images were sent through PACs for interpretation. COMPARISON: Prior CT dated 02/15/2024 and Prior MRI dated 01/22/2024. FINDINGS: Status postsurgery for pathologically verified Glioblastoma Multiforme and compared to prior MRI scans dated 01/22/24, the current examination reveals: Left parietal craniotomy bone flap of prior surgical access. A large intra-axial mass lesion is seen at the left parietal region, with associating vasogenic edema extending to the left peritrigonal region. Positive mass effects are expressed by ipsilateral sulcal and ventricular effacement. It exhibits intermediate signals on T1 WI. Heterogeneous signals are dominantly bright signals on T2 and FLAIR WI. Dark signals of hemosiderin are seen, representing blood byproducts. Heterogeneous enhancement is appreciated after Gd-DTPA injection. It measures 7 x 4.4 x 3.2 cm in the largest [id number], craniocaudal, and anteroposterior dimensions. Findings suggest residual/recurrent high-grade astrocytic neoplasm, e.g. Glioblastoma Multiforme (GBM). Proton MR spectroscopy is recommended. 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 Close follow-up is recommended as appropriate. Normal MRI appearance of the cerebellar parenchymal signals. Normal MRI appearance of the central balbuena matter aggregates. Normal MRI appearance of different anatomical parts of the brain stem, namely the midbrain, mei, and medulla oblongata. Normal MRI appearance of the petrous temporal bones, brainstem, vestibule cochlear nerves, and cerebellopontine angles with no definite masses. No shift of midline structures. No intracerebral or extra-axial hematomas or masses. Normal MRI appearance of orbital structures, both globes, optic nerves, optic chiasm, optic tracts and radiations. The scanned paranasal sinuses are unremarkable. IMPRESSION: 1. Status postsurgery for pathologically verified Glioblastoma Multiforme and compared to prior MRI scans dated 01/22/24, the current examination reveals: 2. Left parietal craniotomy bone flap of prior surgical access. 3. A large intra-axial mass lesion at the left parietal lobe with vasogenic edema extending to the left abraham trigonal regio, with associated ipsilateral sulcal and ventricular effacement. It measures 7 x 4.4 x 3.2 cm. Findings suggest residual/recurrent high-grade astrocytic neoplasm versus tumor radionecrosis, e.g. Glioblastoma Multiforme (GBM). Proton MR spectroscopy is recommended. 4. 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 Close follow-up is recommended as appropriate. 5. The comparison is consistent with a relatively regressive course. Electronically signed by Garcia Mohamud 05-06-2024 9:53 PM
[2024-05-07 06:39] LABS: Hematocrit (blood only) 38.4 % (42.0-52.0); Hemoglobin 13.6 g/dl (14.0-18.0); Mean Corpuscular Hemoglobin 30.3 pg (25.0-34.0); Mean Corpuscular Hgb Conc 35.4 g/dL (32.0-36.0); Mean Corpuscular Volume 85.5 fL (80.0-100.0); Mean Platelet Volume 9.7 fL (9.4-12.4); Platelet Count 135 K/uL (130-400); RDW Coefficient of Variation 14.5 % (11.5-14.5); RDW Standard Deviation 45.1 fL (36.4-46.3); Red Blood Count 4.49 M/uL (4.70-6.10); White Blood Count 8.69 K/ul (4.8-10.8)
[2024-05-07 07:08] LABS: Calcium 8.5 mg/dl (8.6-10.3); Creatinine Clr Calc Pharmacy 168.9 ml/min; Potassium 3.6 mmol/L (3.5-5.1)
[2024-05-07 07:18] LABS: Estimated Average Glucose 157 mg/dl; Hemoglobin A1C 7.1 % (4.5-5.6)
[2024-05-07 07:23] LABS: Thyroid Stimulating Hormone 0.52 uIu/ml (0.300-4.500)
[2024-05-07] MEDS: LOSARTAN/HCTZ 50/12.5MG TAB PO SCH (08:02)
[2024-05-07] MEDS: LORazepam 1 MG TAB PO PRN (08:59)
--- NOTE | 2024-05-07 10:34 | Hospitalist Progress Note ---
Date of Service May 07, 2024 Assessment & Plan (1) Glioblastoma multiforme of parietal lobe: (2) S/P craniotomy: (3) Right arm weakness: (4) Right leg weakness: (5) Sleep apnea: (6) Diabetes: (7) HTN (hypertension): Plan Mr. Guillen is a 53 year old male that presents to the ED with complaints of right sided weakness that is known to him; he reports that he noticed the change most since last Sunday when his steroid dosing was decreased from BID to daily dosing. . He has an unfortunate relatively new diagnosis of glioblastoma multiforme; diagnosed 02/16 and is under the care of Dr. Stanton with hematology/oncology. He underwent a craniotomy and resection on January 22, 2024 under the care of Dr. Lopez at [facility] and most recent radx/chemo treatment on 04/10 . He is to have a follow up with neurosurgery on 05/19 at [facility] and then meet with Dr. Stanton for further oncological treatment plan of care. He underwent chemo and radiation 04/10/24. Recent change with his dexamethasone dosing from BID--> daily. Leukocytosis noted 13.42; however on steroids, troponin mildly elevated 20.3-->23.4. no transaminitis and no other electrolyte abnormalities. Head CT, head/neck CTA without any surgical changes or new findings. ED s/w neurosurgery team at [facility], the PA for Dr. Lopez who recommended a brain MRI. AFter speaking with him he states that he was experiencing expressive aphagia, but not receptive aphagia symptoms. Patient will be admitted for further evaluation and management of his weakness. Will obtain brain MRI, after orbits xray, order PPI, increase Decadron back to 4 mg BID, Ativan PRN, trend troponin, obtain PT/OT, notify his heme/onc providers of admission and trend labs. Glioblastoma multiforme: Status post craniotomy: Right UE weakness/right LE weakness: Diagnosed 01/16 and was tx to [facility] during last visit to ED here. S/P craniotomy and resection on January 22, 2024 under the care of Dr. Lopez at [facility] Most recent radx/chemo treatment on 04/[address] Stanton; has f/u with neurosurgery on 05/19 and f/u with Dr. Stanton thereafter This past 05/02 dexamethasone dosing from BID--> daily Head CT, head/neck CTA without any surgical changes or new findings ED s/w neurosurgery team at [facility], the PA for Dr. Lopez who recommended a brain MRI; ordered and pending symptoms appear to have resolved to baseline Takes Temozolomide daily PT/OT consult placed Ativan PRN; PPI ordered while on steroid Tolerating Decadron 4mg PO BID; continue Neuro consultation placed Discussed Brain MRI results that indicate: A large intra-axial mass lesion at the left parietal lobe with vasogenic edema extending to the left abraham trigonal regio, with associated ipsilateral sulcal and ventricular effacement. It measures 7 x 4.4 x 3.2 cm. Findings suggest residual/recurrent high-grade astrocytic neoplasm versus tumor radionecrosis, e.g. Glioblastoma Multiforme (GBM). Proton MR spectroscopy is recommended. 4. 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 Close follow-up is recommended as appropriate. 5. The comparison is consistent with a relatively regressive course. Discussed results on the phone with Dr. Lopez with Neurosurgery at [facility]; receptive of transfer ( MD Dr. Neo Lopez) to discuss treatment options (future surgery vs Avastin tx for steroid refractory edema) Transfer center assisting and patient can be tx via GT/BLS; paperwork completed. Awaiting bed. HTN: Chronic Takes losartan-HCTZ; continue ELY: chronic wears cpap at home order placed to bring in own cpap Diabetes Mellitus: Non insulin dependent Takes Metformin and Mounjaro; hold while inpt place on SSI ac/hs Glycemic pharmacy Check A1C Disposition: PCP: Dr. Gonzales Code Status: Full Code VTE Prophylaxis: Teds and SCDs for now I spent a total of 61 minutes coordinating, documenting, and providing care for this patient excluding time spent inthe performance of separately billed services or time spent by another provider/QHP. Admission and Anticipated Discharge Date Admission Date: May 06, 2024 Supervising Physician Co-Signing Physician Notes Attending Addendum: Case reviewed with the advanced practitioner. I have personally performed a history and physical examination on the patient. I have reviewed the advanced practitioner's documentation on the date of service referenced in note, and I agree with, and take responsibility for the plan of care. please refer to her notes for full details patient seen and examined, records reviewed by myself as well other diagnoses and plan of care as per advanced practitioner's notes I spent a total of 35 minutes coordinating, documenting, and providing care for this patient, excluding time spent in the performance of separately billed services or time spent by another provider/QHP. Nayan Angel MD Subjective Mr. Guillen was sitting in his bedside chair with his at bedside during my visit. Pt reports that he feels that his RUE/LUE weakness and aphagia has returned to his baseline. He denies FLORES, dizziness, visual changes, N/V/D, falls or paralysis/neuropathy. Discussed Brain MRI results; outlined below. Discussed results on the phone with Dr. Lopez with Neurosurgery at [facility]; receptive of transfer ( MD Dr. Neo Lopez) to discuss treatment options (surgery vs Avastin tx for steroid refractory edema) Transfer center assisting and patient can be tx via GT/BLS; paperwork completed. Awaiting bed. See A/P for further details. Review of Systems Review of Systems: Neuro: (-) Falls, trauma, slurred speech (-) aphagia HEENT: (-) FLORES, dizziness, dysphagia, visual or auditory changes CV: (-) CP, palpitations, swelling Resp: (-) SOB GI: (-) appetite changes, N/V/D, bowel changes : (-) urinary changes Musculoskeletal: RUE 5/5, LUE 5/5, RLE 4/5 LLE 5/5 Skin: (-) rashes Psych: (+) anxiety, depression Physical Exam Physical Exam: Neuro: AAOx4, PERRLA, no aphagia, memory changes, CNII-XII grossly intact HEENT: head normocephalic, moist mucus membranes CV: S1/S2, (-) M/G/R, (-) edema, cap refill < 3 seconds Resp: Lungs CTA in all lemus. On RA GI: Abdomen S/NT/ND, Ax4 bowel sounds, (-) CVA tenderness Musculoskeletal: 5/5 B/L UE strength, 4/5 RLE strength, 5/5 LLE strength. Uses a cane to ambulate Skin: (-) rashes , (-) erythema. Psych: euthymic mood Results & Data Results & Data Vital Signs (Past 12 Hours) Vital Signs Temp Pulse Pulse Resp BP Pulse Ox O2 Del Method 05/07/24 08:13 36.6 C 58 L 20 105/75 97 Room Air 05/07/24 07:14 58 L 05/07/24 03:13 36.5 C 65 18 102/67 93 Room Air 05/06/24 23:07 36.5 C 73 17 109/74 92 CPAP Laboratory Results Short CBC 05/07/24 Range/Units 05:50 WBC 8.69 (4.8-10.8) K/ul Hgb 13.6 L (14.0-18.0) g/dl Hct 38.4 L (42.0-52.0) % Plt Count 135 (130-400) K/uL BMP 05/06/24 05/07/24 09:34 05:50 Sodium 140 138 Potassium 3.6 3.6 Chloride 102 104 Carbon Dioxide 27 27 BUN 29 H 29 H Creatinine 0.86 0.63 Glucose 203 H 169 H Calcium 9.0 8.5 L Liver Function 05/06/24 Range/Units 09:34 Total Bilirubin 1.2 H (0.2-1.0) mg/dl AST 18 (13-39) U/L ALT 43 (7-52) U/L Alkaline Phosphatase 45 (34-104) U/L Albumin 3.8 (3.4-5.0) gm/dl Diagnostic Findings Brain MRI: IMPRESSION: 1. Status postsurgery for pathologically verified Glioblastoma Multiforme and compared to prior MRI scans dated 01/22/24, the current examination reveals: 2. Left parietal craniotomy bone flap of prior surgical access. 3. A large intra-axial mass lesion at the left parietal lobe with vasogenic edema extending to the left abraham trigonal regio, with associated ipsilateral sulcal and ventricular effacement. It measures 7 x 4.4 x 3.2 cm. Findings suggest residual/recurrent high-grade astrocytic neoplasm versus tumor radionecrosis, e.g. Glioblastoma Multiforme (GBM). Proton MR spectroscopy is recommended. 4. 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 Close follow-up is recommended as appropriate. 5. The comparison is consistent with a relatively regressive course.
--- NOTE | 2024-05-07 10:35 | Discharge Summary ---
Date of Service May 07, 2024 Admission HPI Per Admitting Provider Mr. Guillen is a 53 year old male that presents to the ED with complaints of right sided weakness that is known to him; he reports that he noticed the change most since last Sunday when his steroid dosing was decreased from BID to daily dosing. . He has an unfortunate relatively new diagnosis of glioblastoma multiforme; diagnosed 02/16 and is under the care of Dr. Stanton with hematology/oncology. He underwent a craniotomy and resection on January 22, 2024 under the care of Dr. Lopez at [facility] and completed radx/chemo treatment on 04/10. He is to have a follow up with neurosurgery on 05/19 at [facility] and then meet with Dr. Stanton for further oncological treatment plan of care. He underwent chemo and radiation 04/10/24. Recent change with his dexamethasone dosing from BID--> daily. Leukocytosis noted 13.42; however on steroids, troponin mildly elevated 20.3-->23.4. no transaminitis and no other electrolyte abnormalities. Head CT, head/neck CTA without any surgical changes or new findings. ED s/w neurosurgery team at [facility], the PA for Dr. Lopez who recommended a brain MRI. AFter speaking with him he states that he was experiencing expressive aphagia, but not receptive aphagia symptoms. Pt denies FLORES, dizziness, Chest pain, palpitations, N/V/D, recent travel or respiratory cough or other symptoms, recent falls or trauma. Patient will be admitted for further evaluation and management of his weakness. Will obtain brain MRI, after orbits xray, order PPI, increase Decadron back to 4 mg BID, Ativan PRN, trend troponin, obtain PT/OT, notify his heme/onc providers of admission and trend labs. Admission Exam Per Admitting Provider Neuro: AAOx4, PERRLA, no aphagia, memory changes, CNII-XII grossly intact HEENT: head normocephalic, moist mucus membranes CV: S1/S2, (-) M/G/R, (-) edema, cap refill < 3 seconds Resp: Lungs CTA in all lemus. On RA GI: Abdomen S/NT/ND, Ax4 bowel sounds, (-) CVA tenderness Musculoskeletal: 5/5 B/L UE strength, 4/5 RLE strength. No gait disturbance Skin: (-) rashes , (-) erythema. Psych: euthymic mood Principal Diagnosis Glioblastoma Multiforme - with vasogenic edema Discharge Exam Neuro: AAOx4, PERRLA, no aphagia, memory changes, CNII-XII grossly intact (-) aphagia HEENT: head normocephalic, moist mucus membranes CV: S1/S2, (-) M/G/R, (-) edema, cap refill < 3 seconds Resp: Lungs CTA in all lemus. On RA GI: Abdomen S/NT/ND, Ax4 bowel sounds, (-) CVA tenderness Musculoskeletal: 5/5 B/L UE strength, 4/5 RLE strength, 5/5 LLE strength . Uses a hurry cane to ambulate Skin: (-) rashes , (-) erythema. Psych: tearful mood Discharge Data Allergies Allergy/AdvReac Type Severity Reaction Status Date / Time No Known Allergies Allergy Unknown Unverified 05/06/24 13:26 Consultations 05/06/24 15:09 ED Decision to Admit Stat 05/06/24 16:00 Consult Neurology Routine Ordered Studies 05/06/24: Head CT: FINDINGS: Prior left superior parietal craniotomy. Resection cavity within the superior left frontal parietal lobe with surrounding edema/encephalomalacia redemonstrated. There is decreased edema compared to the prior radiation scan. Calcifications of the falx cerebri. Study is motion degraded. No acute intracranial hemorrhage, midline shift, or hydrocephalus. Ill-defined low attenuating focus is noted within the left occipital distribution on image 16 series 2. The paranasal sinuses, mastoid air cells, and middle ear cavities are clear. IMPRESSION: 1. Mildly motion degraded exam without acute intracranial hemorrhage or midline shift. 2. Ill-defined focus of slightly decreased attenuation within the left occipital lobe may be artifactual or represent an early acute infarct. 3. Chronic postoperative changes as above with decreased edema surrounding the operative bed within the superior left frontoparietal lobe compared to the prior study. Head CTA: FINDINGS: Please note that the head CT will be reported separately. Status post left parietal craniotomy. Postoperative findings are better depicted on the head CT will be reported separately. The bilateral M1, M2, A1 and A2 segments are patent. Posterior circulation is intact. No intracranial aneurysm. No vessel occlusion is identified. IMPRESSION: 1. No large vessel occlusion. No intracranial aneurysm. 2. Status post left-sided craniotomy. Postoperative findings better depicted on the same day head CT will be reported separately. Neck CTA: Findings: Visualized portions of the lung apices are unremarkable. There is no cervical lymphadenopathy. There are no cervical spine fractures. The bilateral common carotid, cervical internal carotid and vertebral arteries are patent. No stenosis, dissection or aneurysm is identified within these vessels. IMPRESSION: Unremarkable CTA of the neck. 05/06/24 Brain MRI: FINDINGS: -Status postsurgery for pathologically verified Glioblastoma Multiforme and compared to prior MRI scans dated 01/22/24, the current examination reveals: -Left parietal craniotomy bone flap of prior surgical access. -A large intra-axial mass lesion is seen at the left parietal region, with associating vasogenic edema extending to the left peritrigonal region. Positive mass effects are expressed by ipsilateral sulcal and ventricular effacement. It exhibits intermediate signals on T1 WI. Heterogeneous signals are dominantly bright signals on T2 and FLAIR WI. Dark signals of hemosiderin are seen, representing blood byproducts. Heterogeneous enhancement is appreciated after Gd-DTPA injection. It measures 7 x 4.4 x 3.2 cm in the largest [id number], craniocaudal, and anteroposterior dimensions. Findings suggest residual/recurrent high-grade astrocytic neoplasm, e.g. Glioblastoma Multiforme (GBM). Proton MR spectroscopy is recommended. 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 Close follow-up is recommended as appropriate. Normal MRI appearance of the cerebellar parenchymal signals. Normal MRI appearance of the central balbuena matter aggregates. Normal MRI appearance of different anatomical parts of the brain stem, namely the midbrain, mei, and medulla oblongata. Normal MRI appearance of the petrous temporal bones, brainstem, vestibule cochlear nerves, and cerebellopontine angles with no definite masses. No shift of midline structures. No intracerebral or extra-axial hematomas or masses. Normal MRI appearance of orbital structures, both globes, optic nerves, optic chiasm, optic tracts and radiations. The scanned paranasal sinuses are unremarkable. IMPRESSION: 1. Status postsurgery for pathologically verified Glioblastoma Multiforme and compared to prior MRI scans dated 01/22/24, the current examination reveals: 2. Left parietal craniotomy bone flap of prior surgical access. 3. A large intra-axial mass lesion at the left parietal lobe with vasogenic edema extending to the left abraham trigonal regio, with associated ipsilateral sulcal and ventricular effacement. It measures 7 x 4.4 x 3.2 cm. Findings suggest residual/recurrent high-grade astrocytic neoplasm versus tumor radionecrosis, e.g. Glioblastoma Multiforme (GBM). Proton MR spectroscopy is recommended. 4. 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 Close follow-up is recommended as appropriate. 5. The comparison is consistent with a relatively regressive course. CXR: FINDINGS: Cardiac silhouette is enlarged. Mild right hemidiaphragmatic elevation. No pneumothorax, pleural effusion, airspace consolidation or overt pulmonary edema. Degenerative changes of the shoulders and spine. IMPRESSION: No acute process. Hospital Course (1) Glioblastoma multiforme of parietal lobe: (2) Diabetes: (3) HTN (hypertension): (4) Sleep apnea: (5) Right leg weakness: Plan Mr. Guillen is a 53 year old male that presented to the ED on 05/07 with complaints of right sided weakness that is known to him; he reports that he noticed the change most since last Sunday when his steroid dosing was decreased from BID to daily dosing. He has an unfortunate relatively new diagnosis of glioblastoma multiforme; diagnosed 02/16 and is under the care of Dr. Stanton with hematology/oncology. He underwent a craniotomy and resection on January 22, 2024 under the care of Dr. Lopez at [facility] and most recent radx/chemo treatment on 04/10. He is to have a follow up with neurosurgery on 05/19 at [facility] and then meet with Dr. Stanton for further oncological treatment plan of care. He underwent chemo and radiation 04/10/24. In the ED, leukocytosis noted 13.42; however on steroids, troponin mildly elevated 20.3-->23.4. no transaminitis and no other electrolyte abnormalities. Head CT, head/neck CTA without any surgical changes or new findings. ED s/w neurosurgery team at [facility], the PA for Dr. Lopez who recommended a brain MRI. The results of Brain MRI indicate progression of his tumor (measures 7 x 4.4 x 3.2 cm in the largest [id number], craniocaudal, and anteroposterior dimensions) along with vasogenic edema. Details regarding the Brain MRI and Head CT are detailed in the discharge summary as well. I was able to discuss directly with Dr. Lopez at [facility] who stated that he is willing to accept Mr. Guillen to discuss options moving forward which may, or may not, included avastin (bevacizumab)/ccnu which would possibly support steroid refractory edema. While no beds are available at [facility]; NeuroSurgery recommended continuing Decadron 4 mg by mouth twice daily until he can be seen in [place]. Total Time Total Time Spent Total Time Spent (In Minutes): I spent a total of 68 minutes coordinating, documenting, and providing care for this patient excluding time spent inthe performance of separately billed services or time spent by another provider/QHP. Discharge Plan Discharge Items Patient Disposition: Transfer Acute Care Hospital Reason For Visit: WEAKNESS Discharge Diagnosis: Glioblastome Multiforme - Parietal Region with vasogenic edema and progressive growth Condition on Discharge: Good Activity: Resume your previous activity Non-emergency contact: Primary Care Provider, Neurologist and Oncologist Call non-emergency contact if: you have any medication questions, your symptoms worsen, your pain is concerning for you and your rectal temperature is above 100.4 Follow-up/Referrals: Beverly Gonzales CRNP [Primary Care Provider] - Diet: Heart Healthy Addtl Attending Provider Instructions: Mr. Guillen - you presented to the ED on 05/07/24 with complaints of right sided weakness that uou report is known to you; you reported that you noticed the change most since last Sunday when your steroid dosing was decreased from BID to daily dosing. As you navigate this relatively new diagnosis, yo continue to fol low with your care with Dr. Stanton and Dr. Lopez. As you stated, you had undergone a craniotomy and resection on January 22, 2024 under the care of Dr. Lopez at [facility] and most recent radiation adn chemotherapy treatment on 04/10. You are currently scheduled to have a follow up with neurosurgery on 05/19 at [facility] and then meet with Dr. Stanton for further oncological treatment plan of care. In the emergency room, you underwent numerous imaging studies including a head CT, brain MRI and CT of your head and neck arteries. See above in the discharge summary for these results and findings). The emergency room spoke with your neurosurgeon in [place] who recommended you have a brain MRI. The results of the brain MRI indicate progression of tumor size which can be expected with this type of cancer (measures 7 x 4.4 x 3.2 cm in the largest [id number], craniocaudal, and anteroposterior dimensions) along with vasogenic edema (swelling). Details regarding the Brain MRI and Head CT are detailed in the discharge summary as well. I was able to discuss directly with Dr. Lopez at [facility] who stated that he is willing to accept you at [facility] to discuss treatment options moving forward to support symptoms you experienced and discuss medication options. While no beds are available at [facility] currently; NeuroSurgery recommended continuing Decadron 4 mg by mouth twice daily until you can be transferred. This paperwork was completed and signed by you and you will be notified once a bed is available. OTHER INSTRUCTIONS: Seek medical attention if you have: * temperature above 101 * chest pain or trouble breathing * abdominal pain, nausea, vomiting * diarrhea, dark stools or bloody stools * any unanswered questions or concerns Call 911 if symptoms are severe. Please take good care of yourself. It has been a pleasure taking care of you. Please take care of yourself and we are hopeful that you will be able to receive additional insight into your treatment options moving forward. If you have any questions regarding your recent hospitalization please contact [facility] and request [facility] @ [phone]. Pending Studies at Discharge: No Stand-Alone Forms: My [facility] Skilled Items Patient informed of condition?: Yes DNR: No Discharge Level of Care: Other Communicable Disease: No Discharge Prognosis: Stable Lines: Peripheral IV Urinary Catheter: No Medications and DC Order Prescriptions: New dexamethasone 4 mg Tablet 4 mg PO BID Qty: 7 0RF Continued albuterol sulfate [Ventolin HFA] 90 mcg/actuation HFA aerosol inhaler 2 puff inhalation Q4H PRN (Reason: SOB/Wheezing) acetaminophen [Tylenol] 325 mg tablet 975 mg PO Q6H PRN (Reason: Pain) Rx Instructions: Unable to verify OTC meds at this date/time. temozolomide 180 mg capsule 0 mg PO DAILY Rx Instructions: Not on file w/ pharmacy. Unable to verify w/ pt/family at this date/time. Original Directions: 180mg by mouth daily losartan-hydrochlorothiazide 50-12.5 mg tablet 1.5 tab PO QAM metformin 500 mg tablet extended release 24 hr 1,000 mg PO BID Mounjaro 2.5 mg/0.5 mL pen injector 2.5 mg SUBCUT WK Discontinued ibuprofen [Advil] 200 mg Tablet 800 mg PO QID PRN (Reason: Pain) Rx Instructions: Unable to verify OTC meds at this date/time. dexamethasone 4 mg tablet 4 mg PO DAILY Krames/Other Patient Handouts: Managing Type 2 Diabetes Admission Data Admit Date/Time: 05/06/24 15:07 Attending Provider: Nayan Angel Admit Provider: Zelalem Moncada Primary Care Provider: Beverly Gonzales Other Providers: Zelalem Moncada
--- NOTE | 2024-05-08 14:55 | Hospitalist Progress Note ---
Date of Service May 08, 2024 Assessment & Plan (1) Glioblastoma multiforme of parietal lobe: (2) Diabetes: (3) HTN (hypertension): (4) Sleep apnea: (5) Right leg weakness: Plan Mr. Guillen is a 53 year old male that presented to the ED on 05/07 with complaints of right sided weakness that is known to him; he reports that he noticed the change most since last Sunday when his steroid dosing was decreased from BID to daily dosing. He has an unfortunate relatively new diagnosis of glioblastoma multiforme; diagnosed 02/16 and is under the care of Dr. Stanton with hematology/oncology. He underwent a craniotomy and resection on January 22, 2024 under the care of Dr. Lopez at [facility] and most recent radx/chemo treatment on 04/10. He is to have a follow up with neurosurgery on 05/19 at [facility] and then meet with Dr. Stanton for further oncological treatment plan of care. He underwent chemo and radiation 04/10/24. In the ED, leukocytosis noted 13.42; however on steroids, troponin mildly elevated 20.3-->23.4. no transaminitis and no other electrolyte abnormalities. Head CT, head/neck CTA without any surgical changes or new findings. ED s/w neurosurgery team at [facility], the [place] for Dr. Lopez who recommended a brain MRI. The results of Brain MRI indicate progression of his tumor (measures 7 x 4.4 x 3.2 cm in the largest [id number], craniocaudal, and anteroposterior dimensions) along with vasogenic edema.Findings were discussed with Dr. Lopez from [facility]; accepted patient to be transferred to [facility] to discuss options moving forward. Continue Decadron 4 mg twice a day for now. Continue losartanhydrochlorothiazide. Awaiting bed assignment for transfer to [facility] DVT prophylaxisSCDs Full code Please note the above document was generated using voice recognition software. It may contain grammatical, syntax or spelling errors. Any formal questions or concerns about the content, text or information contained within the body of this dictation should be directly addressed to the provider for clarification Admission and Anticipated Discharge Date Admission Date: May 06, 2024 Subjective Patient seen and examined at bedside. He is comfortable; not in distress Reports that his strength is slightly better after dexamethasone dose is increased No significant events overnight Review of Systems Review of Systems: All systems reviewed & are unremarkable except as noted in Subjective Physical Exam Physical Exam: Constitutional: WD/WN, vitals as above, NAD, sitting up in bed, pleasant, conversing easily Respiratory: normal respiratory effort, lungs clear to auscultation, no wheeze, rales, rhonchi. Normal insp/exp effort, no accessory muscle use Cardiovascular: RRR, no murmur, no edema Vessels: no JVD or carotid bruit Chest: normal inspection of chest Abdomen: normal bowel sounds, soft, nontender, no hepatosplenomegaly Musculoskeletal: no cyanosis or clubbing, extremities motor strength 5/5 Skin: no rashes, warm and dry normal turgor Neurologic: PERRL, EOMI, accommodation nl, no face palsy, no dysarthria CN's II- XI intact. Strength of right lower extremity4/5. Strength intact otherwise Psychiatric: A+Ox3, euthymic affect Results & Data Results & Data Vital Signs (Past 12 Hours) Vital Signs Temp Pulse Pulse Resp BP Pulse Ox O2 Del Method 05/08/24 11:40 36.7 C 67 20 118/81 95 Room Air 05/08/24 08:16 36.5 C 85 20 122/71 96 Room Air 05/08/24 07:30 69 05/08/24 04:26 36.5 C 64 18 117/74 94 Room Air
--- NOTE | 2024-05-08 15:12 | Discharge Summary ---
Date of Service May 08, 2024 Admission HPI Per Admitting Provider Mr. Guillen is a 53 year old male that presents to the ED with complaints of right sided weakness that is known to him; he reports that he noticed the change most since last Sunday when his steroid dosing was decreased from BID to daily dosing. . He has an unfortunate relatively new diagnosis of glioblastoma multiforme; diagnosed 02/16 and is under the care of Dr. Stanton with hematology/oncology. He underwent a craniotomy and resection on January 22, 2024 under the care of Dr. Lopez [place] [facility] and completed radx/chemo treatment on 04/10. He is to have a follow up with neurosurgery on 05/19 at [facility] and then meet with Dr. Stanton for further oncological treatment plan of care. He underwent chemo and radiation 04/10/24. Recent change with his dexamethasone dosing from BID--> daily. Leukocytosis noted 13.42; however on steroids, troponin mildly elevated 20.3-->23.4. no transaminitis and no other electrolyte abnormalities. Head CT, head/neck CTA without any surgical changes or new findings. [place] s[place] [facility] Dr. Lopez who recommended a brain MRI. AFter speaking with him he states that he was experiencing expressive aphagia, but not receptive aphagia symptoms. Pt denies FLORES, dizziness, Chest pain, palpitations, N/V/D, recent travel or respiratory cough or other symptoms, recent falls or trauma. Patient will be admitted for further evaluation and management of his weakness. Will obtain brain MRI, after orbits xray, order PPI, increase Decadron back to 4 mg BID, Ativan PRN, trend troponin, obtain PT/OT, notify his heme/onc providers of admission and trend labs. Discharge Data Allergies Allergy/AdvReac Type Severity Reaction Status Date / Time No Known Allergies Allergy Unknown Unverified 05/06/24 13:26 Consultations 05/06/24 15:09 ED Decision to Admit Stat 05/07/24 15:54 Burn CD for patient Routine Ordered Studies 05/06/24 09:57 CT angio head w con Stat CT angio neck with con Stat CT head/brain wo con Stat 05/06/24 16:00 MRI Brain [MR brain wo/w con] Stat Hospital Course (1) Glioblastoma multiforme of parietal lobe: (2) Diabetes: (3) HTN (hypertension): (4) Sleep apnea: (5) Right leg weakness: Plan Mr. Guillen is a 53 year old male that presented to the ED on 05/07 with complaints of right sided weakness that is known to him; he reports that he noticed the change most since last Sunday when his steroid dosing was decreased from BID to daily dosing. He has an unfortunate relatively new diagnosis of glioblastoma multiforme; diagnosed 02/16 and is under the care of Dr. Stanton with hematology/oncology. He underwent a craniotomy and resection on January 22, 2024 under the care of Dr. Lopez at [facility] and most recent radx/chemo treatment on 04/10. He is to have a follow up with neurosurgery on 05/19 at [facility] and then meet with Dr. Stanton for further oncological treatment plan of care. He underwent chemo and radiation 04/10/24. In the ED, leukocytosis noted 13.42; however on steroids, troponin mildly elevated 20.3-->23.4. no transaminitis and no other electrolyte abnormalities. Head CT, head/neck CTA without any surgical changes or new findings. ED s[place]surgery team [place] [facility] Dr. Lopez who recommended a brain MRI. The results of Brain MRI indicate progression of his tumor (measures 7 x 4.4 x 3.2 cm in the largest [id number], craniocaudal, and anteroposterior dimensions) along with vasogenic edema.Findings were discussed with Dr. Lopez from [facility]; accepted patient to be transferred to [facility] to discuss options moving forward. Continue Decadron 4 mg twice a day for now. Continue losartanhydrochlorothiazide. Awaiting bed assignment for transfer [place] [facility] DVT prophylaxisSCDs Full code Please note the above document was generated using voice recognition software. It may contain grammatical, syntax or spelling errors. Any formal questions or concerns about the content, text or information contained within the body of this dictation should be directly addressed to the provider for clarification Discharge Plan Discharge Items Patient Disposition: Transfer Acute Care Hospital Reason For Visit: WEAKNESS Discharge Diagnosis: Glioblastome Multiforme - Parietal Region with vasogenic edema and progressive growth Condition on Discharge: Good Activity: Resume your previous activity Non-emergency contact: Primary Care Provider, Neurologist and Oncologist Call non-emergency contact if: you have any medication questions, your symptoms worsen, your pain is concerning for you and your rectal temperature is above 100.4 Follow-up/Referrals: Beverly Gonzales CRNP [Primary Care Provider] - Diet: Heart Healthy Addtl Attending Provider Instructions: Mr. Guillen - hansel presented to the ED on 05/07/24 with complaints of right sided weakness that uou report is known to you; you reported that you noticed the change most since last Sunday when your steroid dosing was decreased from BID to daily dosing. As you navigate this relatively new diagnosis, yo continue to follow with your care with Dr. Stanton and Dr. Lopez. As you stated, you had undergone a craniotomy and resection on January 22, 2024 under the care of Dr. Lopez [place] [facility] and most recent radiation adn chemotherapy treatment on 04/10. You are currently scheduled to have a follow up with neurosurgery on 05/19 at [facility] and then meet with Dr. Stanton for further oncological treatment plan of care. In the emergency room, you underwent numerous imaging studies including a head CT, brain MRI and CT of your head and neck arteries. See above in the discharge summary for these results and findings). The emergency room spoke with your neurosurgeon in [place] who recommended you have a brain MRI. The results of the brain MRI indicate progression of tumor size which can be expected with this type of cancer (measures 7 x 4.4 x 3.2 cm in the largest [id number], craniocaudal, and anteroposterior dimensions) along with vasogenic edema (swelling). Details regarding the Brain MRI and Head CT are detailed in the discharge summary as well. I was able to discuss directly with Dr. Lopez at [facility] who stated that he is willing to accept you at [facility] to discuss treatment options moving forward to support symptoms you experienced and discuss medication options. While no beds are available at [facility] currently; NeuroSurgery recommended continuing Decadron 4 mg by mouth twice daily until you can be transferred. This paperwork was completed and signed by you and you will be notified once a bed is available. OTHER INSTRUCTIONS: Seek medical attention if you have: * temperature above 101 * chest pain or trouble breathing * abdominal pain, nausea, vomiting * diarrhea, dark stools or bloody stools * any unanswered questions or concerns Call 911 if symptoms are severe. Please take good care of yourself. It has been a pleasure taking care of you. Please take care of yourself and we are hopeful that you will be able to receive additional insight into your treatment options moving forward. If you have any questions regarding your recent hospitalization please contact [facility] and request [facility] @ [phone]. Addtl Berry Picker Provider Instructions: Sir/oRbyam: Patient Mariano Guillen is being admitted to [facility] for evaluation and treatment. I am respectfully referring Ms. Louise Guillen, patient's , for a stay in your hospitality facility. Thank you for your kind consideration. Sincerely, Nayan Angel MD Pending Studies at Discharge: No Stand-Alone Forms: My [facility] Skilled Items Patient informed of condition?: Yes DNR: No Discharge Level of Care: Other Communicable Disease: No Discharge Prognosis: Stable Lines: Peripheral IV Urinary Catheter: No Medications and DC Order Prescriptions: New dexamethasone 4 mg Tablet 4 mg PO BID Qty: 7 0RF Continued albuterol sulfate [Ventolin HFA] 90 mcg/actuation HFA aerosol inhaler 2 puff inhalation Q4H PRN (Reason: SOB/Wheezing) acetaminophen [Tylenol] 325 mg tablet 975 mg PO Q6H PRN (Reason: Pain) Rx Instructions: Unable to verify OTC meds at this date/time. temozolomide 180 mg capsule 0 mg PO DAILY Rx Instructions: Not on file w/ pharmacy. Unable to verify w/ pt/family at this date/time. Original Directions: 180mg by mouth daily losartan-hydrochlorothiazide 50-12.5 mg tablet 1.5 tab PO QAM metformin 500 mg tablet extended release 24 hr 1,000 mg PO BID Mounjaro 2.5 mg/0.5 mL pen injector 2.5 mg SUBCUT WK Discontinued ibuprofen [Advil] 200 mg Tablet 800 mg PO QID PRN (Reason: Pain) Rx Instructions: Unable to verify OTC meds at this date/time. dexamethasone 4 mg tablet 4 mg PO DAILY Krames/Other Patient Handouts: Managing Type 2 Diabetes Admission Data Admit Date/Time: 05/06/24 15:07 Attending Provider: Buzz Day Admit Provider: Zelalem Moncada Primary Care Provider: Beverly Gonzales Other Providers: Zelalem Moncada
[2024-05-08 19:46] VITALS: RESP 18
[2024-05-09] MEDS: metFORMIN HCL ER 500 MG TABCR PO SCH (11:02)
--- NOTE | 2024-05-09 14:00 | Hospitalist Progress Note ---
Date of Service May 09, 2024 Assessment & Plan (1) Glioblastoma multiforme of parietal lobe: (2) Diabetes: (3) HTN (hypertension): (4) Sleep apnea: (5) Right leg weakness: Plan Mr. Guillen is a 53 year old male that presented to the ED on 05/07 with complaints of right sided weakness that is known to him; he reports that he noticed the change most since last Sunday when his steroid dosing was decreased from BID to daily dosing. He has an unfortunate relatively new diagnosis of glioblastoma multiforme; diagnosed 02/16 and is under the care of Dr. Stanton with hematology/oncology. He underwent a craniotomy and resection on January 22, 2024 under the care of Dr. Lopez [place] [facility] and most recent radx/chemo treatment on 04/10. He is to have a follow up with neurosurgery on 05/19 at [facility] and then meet with Dr. Stanton for further oncological treatment plan of care. He underwent chemo and radiation 04/10/24. In the ED, leukocytosis noted 13.42; however on steroids, troponin mildly elevated 20.3-->23.4. no transaminitis and no other electrolyte abnormalities. Head CT, head/neck CTA without any surgical changes or new findings. ED s/w neurosurgery team [place] [facility] for Dr. Lopez who recommended a brain MRI. The results of Brain MRI indicate progression of his tumor (measures 7 x 4.4 x 3.2 cm in the largest [id number], craniocaudal, and anteroposterior dimensions) along with vasogenic edema.Findings were discussed with Dr. Lopez from [facility]; accepted patient to be transferred to [facility] to discuss options moving forward. Continue Decadron 4 mg twice a day for now. Continue losartanhydrochlorothiazide. Awaiting bed assignment for transfer to [facility] DVT prophylaxisSCDs Full code Please note the above document was generated using voice recognition software. It may contain grammatical, syntax or spelling errors. Any formal questions or concerns about the content, text or information contained within the body of this dictation should be directly addressed to the provider for clarification Admission and Anticipated Discharge Date Admission Date: May 06, 2024 Subjective Patient seen and examined at bedside. Comfortable; not in distress. Denies fever, chills, chest pain, shortness of breath, abdominal pain or urinary symptoms. No significant overnight events Review of Systems Review of Systems: All systems reviewed & are unremarkable except as noted in Subjective Physical Exam Physical Exam: Constitutional: WD/WN, vitals as above, NAD, sitting up in bed, pleasant, conversing easily Respiratory: normal respiratory effort, lungs clear to auscultation, no wheeze, rales, rhonchi. Normal insp/exp effort, no accessory muscle use Cardiovascular: RRR, no murmur, no edema Vessels: no JVD or carotid bruit Chest: normal inspection of chest Abdomen: normal bowel sounds, soft, nontender, no hepatosplenomegaly Musculoskeletal: no cyanosis or clubbing, extremities motor strength 5/5 Skin: no rashes, warm and dry normal turgor Neurologic: PERRL, EOMI, accommodation nl, no face palsy, no dysarthria CN's II- XI intact. Strength of right lower extremity4/5. Strength intact otherwise Psychiatric: A+Ox3, euthymic affect Results & Data Results & Data Vital Signs (Past 12 Hours) Vital Signs Temp Pulse Pulse Resp BP BP Pulse Ox 05/09/24 12:27 36.7 C 71 18 126/79 95 05/09/24 09:06 36.8 C 64 18 130/81 96 05/09/24 07:16 60 05/09/24 04:46 36.5 C 65 18 117/75 98 O2 Del Method 05/09/24 12:27 Room Air 05/09/24 09:06 Room Air 05/09/24 07:16 05/09/24 04:46 Room Air
--- NOTE | 2024-05-09 14:00 | Discharge Summary ---
Date of Service May 09, 2024 Admission HPI Per Admitting Provider Mr. Guillen is a 53 year old male that presents to the ED with complaints of right sided weakness that is known to him; he reports that he noticed the change most since last Sunday when his steroid dosing was decreased from BID to daily dosing. . He has an unfortunate relatively new diagnosis of glioblastoma multiforme; diagnosed 02/16 and is under the care of Dr. Stanton with hematology/oncology. He underwent a craniotomy and resection on January 22, 2024 under the care of Dr. Lopez at [facility] and completed radx/chemo treatment on 04/10. He is to have a follow up with neurosurgery on 05/[address] [facility] and then meet with Dr. Stanton for further oncological treatment plan of care. He underwent chemo and radiation 04/10/24. Recent change with his dexamethasone dosing from BID--> daily. Leukocytosis noted 13.42; however on steroids, troponin mildly elevated 20.3-->23.4. no transaminitis and no other electrolyte abnormalities. Head CT, head/neck CTA without any surgical changes or new findings. ED s/w neurosurgery team at [facility], the PA for Dr. Lopez who recommended a brain MRI. AFter speaking with him he states that he was experiencing expressive aphagia, but not receptive aphagia symptoms. Pt denies FLORES, dizziness, Chest pain, palpitations, N/V/D, recent travel or respiratory cough or other symptoms, recent falls or trauma. Patient will be admitted for further evaluation and management of his weakness. Will obtain brain MRI, after orbits xray, order PPI, increase Decadron back to 4 mg BID, Ativan PRN, trend troponin, obtain PT/OT, notify his heme/onc providers of admission and trend labs. Admission Exam Per Admitting Provider Neuro: AAOx4, PERRLA, no aphagia, memory changes, CNII-XII grossly intact HEENT: head normocephalic, moist mucus membranes CV: S1/S2, (-) M/G/R, (-) edema, cap refill < 3 seconds Resp: Lungs CTA in all lemus. On RA GI: Abdomen S/NT/ND, Ax4 bowel sounds, (-) CVA tenderness Musculoskeletal: 5/5 B/L UE strength, 4/5 RLE strength. No gait disturbance Skin: (-) rashes , (-) erythema. Psych: euthymic mood Principal Diagnosis Glioblastoma Multiforme - with vasogenic edema Discharge Exam Constitutional: WD/WN, vitals as above, NAD, sitting up in bed, pleasant, conversing easily Respiratory: normal respiratory effort, lungs clear to auscultation, no wheeze, rales, rhonchi. Normal insp/exp effort, no accessory muscle use Cardiovascular: RRR, no murmur, no edema Vessels: no JVD or carotid bruit Chest: normal inspection of chest Abdomen: normal bowel sounds, soft, nontender, no hepatosplenomegaly Musculoskeletal: no cyanosis or clubbing, extremities motor strength 5/5 Skin: no rashes, warm and dry normal turgor Neurologic: PERRL, EOMI, accommodation nl, no face palsy, no dysarthria CN's II- XI intact. Strength of right lower extremity4/5. Strength intact otherwise Psychiatric: A+Ox3, euthymic affect Discharge Data Allergies Allergy/AdvReac Type Severity Reaction Status Date / Time No Known Allergies Allergy Unknown Unverified 05/06/24 13:26 Consultations 05/06/24 15:09 ED Decision to Admit Stat 05/07/24 15:54 Burn CD for patient Routine Ordered Studies 05/06/24 09:57 CT angio head w con Stat CT angio neck with con Stat CT head/brain wo con Stat 05/06/24 16:00 MRI Brain [MR brain wo/w con] Stat Hospital Course (1) Glioblastoma multiforme of parietal lobe: (2) Diabetes: (3) HTN (hypertension): (4) Sleep apnea: (5) Right leg weakness: Plan Mr. Guillen is a 53 year old male that presented to the ED on 05/07 with complaints of right sided weakness that is known to him; he reports that he noticed the change most since last Sunday when his steroid dosing was decreased from BID to daily dosing. He has an unfortunate relatively new diagnosis of glioblastoma multiforme; diagnosed 02/16 and is under the care of Dr. Stanton with hematology/oncology. He underwent a craniotomy and resection on January 22, 2024 under the care of Dr. Lopez at [facility] and most recent radx/chemo treatment on 04/10. He is to have a follow up with neurosurgery on 2/[address] [facility] and then meet with Dr. Stanton for further oncological treatment plan of care. He underwent chemo and radiation 04/10/24. In the ED, leukocytosis noted 13.42; however on steroids, troponin mildly elevated 20.3-->23.4. no transaminitis and no other electrolyte abnormalities. Head CT, head/neck CTA without any surgical changes or new findings. ED s/w neurosurgery team at [facility], the PA for Dr. Lopez who recommended a brain MRI. The results of Brain MRI indicate progression of his tumor (measures 7 x 4.4 x 3.2 cm in the largest [id number], craniocaudal, and anteroposterior dimensions) along with vasogenic edema.Findings were discussed with Dr. Lopez from [facility]; accepted patient to be transferred to their to discuss options moving forward. Continue Decadron 4 mg twice a day for now. Please note the above document was generated using voice recognition software. It may contain grammatical, syntax or spelling errors. Any formal questions or concerns about the content, text or information contained within the body of this dictation should be directly addressed to the provider for clarification Total Time Total Time Spent Total Time Spent (In Minutes): 45 Total Time Includes: Examination of the Patient, Discharge Planning, Medication Reconciliation, Communication With Other Providers and Other Discharge Plan Discharge Items Patient Disposition: Transfer Acute Care Hospital Reason For Visit: WEAKNESS Discharge Diagnosis: Glioblastome Multiforme - Parietal Region with vasogenic edema and progressive growth Condition on Discharge: Good Activity: Resume your previous activity Non-emergency contact: Primary Care Provider, Neurologist and Oncologist Call non-emergency contact if: you have any medication questions, your symptoms worsen, your pain is concerning for you and your rectal temperature is above 100.4 Follow-up/Referrals: Beverly Gonzales CRNP [Primary Care Provider] - Diet: Heart Healthy Addtl Attending Provider Instructions: Mr. Guillen - you presented to the ED on 05/07/24 with complaints of right sided weakness that uou report is known to you; you reported that you noticed the change most since last Sunday when your steroid dosing was decreased from BID to daily dosing. As you navigate this relatively new diagnosis, yo continue to follow with your care with Dr. Stanton and Dr. Lopez. As you stated, you had undergone a craniotomy and resection on January 22, 2024 under the care of Dr. Lopez at [facility] and most recent radiation adn chemotherapy treatment on 04/10. You are currently scheduled to have a follow up with neurosurgery on 05/19 at [facility] and then meet with Dr. Stanton for further oncological treatment plan of care. In the emergency room, you underwent numerous imaging studies including a head CT, brain MRI and CT of your head and neck arteries. See above in the discharge summary for these results and findings). The emergency room spoke with your neurosurgeon in [place] who recommended you have a brain MRI. The results of the brain MRI indicate progression of tumor size which can be expected with this type of cancer (measures 7 x 4.4 x 3.2 cm in the largest [id number], craniocaudal, and anteroposterior dimensions) along with vasogenic edema (swelling). Details regarding the Brain MRI and Head CT are detailed in the discharge summary as well. discussion was done with Dr. Lopez at [facility] who stated that he is willing to accept you at [facility] to discuss treatment options moving forward to support symptoms you experienced and discuss medication options. While no beds are available at [facility] currently; NeuroSurgery recommended continuing Decadron 4 mg by mouth twice daily until you can be transferred. This paperwork was completed and signed by you and you will be notified once a bed is available. OTHER INSTRUCTIONS: Seek medical attention if you have: * temperature above 101 * chest pain or trouble breathing * abdominal pain, nausea, vomiting * diarrhea, dark stools or bloody stools * any unanswered questions or concerns Call 911 if symptoms are severe. Please take good care of yourself. It has been a pleasure taking care of you. Please take care of yourself and we are hopeful that you will be able to receive additional insight into your treatment options moving forward. If you have any questions regarding your recent hospitalization please contact [facility] and [facility] @ [phone]. Addtl [employer] Provider Instructions: /: Patient Mariano Guillen is being admitted to [facility] for evaluation and treatment. I am respectfully referring Ms. Louise Guillen, patient's , for a stay in your hospitality facility. Thank you for your kind consideration. Sincerely, Nayan Angel MD Pending Studies at Discharge: No Stand-Alone Forms: My [facility] Skilled Items Patient informed of condition?: Yes DNR: No Discharge Level of Care: Other Communicable Disease: No Discharge Prognosis: Stable Lines: Peripheral IV Urinary Catheter: No Medications and DC Order Prescriptions: New dexamethasone 4 mg Tablet 4 mg PO BID Qty: 7 0RF Continued albuterol sulfate [Ventolin HFA] 90 mcg/actuation HFA aerosol inhaler 2 puff inhalation Q4H PRN (Reason: SOB/Wheezing) acetaminophen [Tylenol] 325 mg tablet 975 mg PO Q6H PRN (Reason: Pain) Rx Instructions: Unable to verify OTC meds at this date/time. temozolomide 180 mg capsule 0 mg PO DAILY Rx Instructions: Not on file w/ pharmacy. Unable to verify w/ pt/family at this date/time. Original Directions: 180mg by mouth daily losartan-hydrochlorothiazide 50-12.5 mg tablet 1.5 tab PO QAM metformin 500 mg tablet extended release 24 hr 1,000 mg PO BID Mounjaro 2.5 mg/0.5 mL pen injector 2.5 mg SUBCUT WK Discontinued ibuprofen [Advil] 200 mg Tablet 800 mg PO QID PRN (Reason: Pain) Rx Instructions: Unable to verify OTC meds at this date/time. dexamethasone 4 mg tablet 4 mg PO DAILY Discharge Orders: Discharge Order (Routine); Ordered 05/09/24 Ordered By: Buzz Wood/Other Patient Handouts: Managing Type 2 Diabetes Admission Data Admit Date/Time: 05/06/24 15:07 Attending Provider: Buzz Day Admit Provider: Zelalem Moncada Primary Care Provider: Beverly Gonzales Other Providers: Zelalem Moncada Other Interventions: Discharge Summary Assessment (RN) Last Done: 05/09/24 18:37
[2024-05-09] MEDS: ACETAMINOPHEN 325 MG TAB PO PRN (14:26)
[2024-05-09 16:12] VITALS: TEMP 97.7; O2SAT 94
[2024-05-09 18:40] VITALS: BP 130/81; PULSE 89
== END 2024-05-09 20:45 | disposition short-term general hospital (02) | DRG 54 ==
LOC: ED 09:22 → SUATTDRO 15:07 → 4W 15:07

== ENCOUNTER 2025-02-01 12:01 | Inpatient (IN) ==
--- NOTE | 2025-02-01 12:19 | Emergency Department Note ---
Impression & Plan Glioblastoma multiforme of parietal lobe, Right leg weakness, Twitching ED Provider Note NAME: YULY NICHOLAS AGE: 54 SEX: M : 1970 ARRIVES VIA: Walk-In INFORMANT: Patient ED PROVIDER(S): Dm King DO CHIEF COMPLAINT: Right sided tremors and shaking HPI: Patient is a 54-year-old male with a past medical history of brain cancer, diabetes, hypertension who presents to the ER for tremors in the right upper and right lower extremity. He does not notice any true weakness. He noticed the shaking about an hour ago. He admits to some numbness in the right leg and tingling. notes that they have had this before was admitted once for this but has not been on any antiepileptics. ADDITIONAL HISTORY OBTAINED: Per HPI Chronic Medical/Social Conditions Affecting Care: Per HPI PAST MEDICAL HISTORY:See Below PAST SURGICAL HISTORY:See Below FAMILY HISTORY:See Below SOCIAL HISTORY:See Below HOME MEDICATIONS:See Below ALLERGIES:See Below VITALS:See Below PHYSICAL EXAMINATION: GENERAL: Sitting up in bed, alert, well appearing, well nourished, no distress, non-toxic EYE EXAM: normal conjunctiva. PERRL and EOM's grossly intact. OROPHARYNX: no exudate, no erythema, lips, buccal mucosa, and tongue normal and mucous membranes are moist NECK: supple, no nuchal rigidity, no adenopathy, non-tender LUNGS: Clear to auscultation. Normal chest wall mechanics HEART: no murmurs, S1 normal and S2 normal ABDOMEN: abdomen soft, non-tender, normo-active bowel sounds, no masses, no rebound or guarding. BACK: Back is symmetrical on inspection and there is no deformity, no midline tenderness, no CVA tenderness. SKIN: no rashes and no bruising UPPER EXTREMITIES: upper extremities are grossly normal. LOWER EXTREMITIES: No pitting edema. NEURO EXAM: Normal sensorium, cranial nerves II-XII intact, normal speech, + clonus in RLE. No weakness in left upper or left lower extremity. Able to flex at the right hip and knee. Unable to plantarflex. Gross sensations intact. MEDICAL DECISION MAKING: Patient is a 54-year-old male who presents ER for above-stated complaint. IV was established and blood work is obtained. Labs show mild leukocytosis 17,000. No significant anemia. BMP with a hypokalemia at 3.1. LFTs bilirubin and lipase unremarkable. CT head and chest x-ray showed no acute findings but did show some changes on the CT head. Discussed with Apoorva greenfield and they recommended admission MRIs with and without in combination with EEG. Patient was updated in regards to our findings. Patient was given IV Keppra. Discussed case with the hospitalist for further evaluation management and treatment. Consults/Care Managements Discussions: Per MDM Triage Nursing notes reviewed. Limited review of prior medical records performed Vital Signs: reviewed and remarkable for no significant abnormalities Differential diagnosis: Differential Diagnosis includes but is not limited to ischemic Stroke, hemorrhagic stroke, bells palsy, mass, neoplasm, migraine headache, seizure, subarachnoid hemorrhage, TIA, and transient global amnesia. ER treatment provided: See below Diagnostics interpreted by me include EKG and cardiac monitoring as listed below: -Cardiac Monitoring: An order was placed for continuous cardiac monitoring. The monitor shows a rate of 92 with sinus rhythm. -ECG: Sinus tachycardia rate of 132 Left axis No PVCs QTc 468 -Laboratory studies:Interpreted by me as stated above in MDM and shown below. Imaging studies: Xrays: As interpreted by me: Portable AP upright 1 view of the chest shows no focal infiltrate CTs show: CT head as described above Procedures:none Critical Care: None Past Med/Surg History Problem List (Updated 02/01/25 @ 15:14 by Dm King DO) Twitching (Acute) Tobacco use Hyperlactatemia Hypokalemia Morbid obesity Brain cancer Right arm weakness (Acute) Right leg weakness (Acute) Sleep apnea bipap Diabetes HTN (hypertension) Glioblastoma multiforme of parietal lobe (Chronic 01/22/24) Medical History Hx of gastroesophageal reflux (GERD) Infected venous access port 07/2024- patient admitted to 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 Sleep apnea bipap Hypokalemia takes potassium prn. Hypertension Diabetes mellitus, type 2 NIDDM + GLP-1 weekly injection Anxiety Right leg weakness due to brain cancer Glioblastoma multiforme of parietal lobe following with onc at [facility]- s/p craniotomy and tumor resection 12/2023- has loss of feeling in right leg + currently treated with immunotherapy. Surgical History H/O insertion of central venous access port (07/02/24) Insertion of Access Port with Fluoroscopy(Left) - Tato Lutz DO, FACS History of removal of Port-a-Cath (08/20/24) Aport Removal - Tato Lutz DO, FACS History of surgery Left hand surgery d/t nail in hand S/P craniotomy (01/22/24) Left craniotomy for tumor resection 01/22/24 Dr. Lopez at [facility] Family History Mother No problems noted. Father Diabetes Hypertension Brother No problems noted. Sister No problems noted. Son No problems noted. Daughter No problems noted. Grandmother Diabetes Other Cancer No family history of adverse response to anesthesia Social History Smoking Status: Never smoker Tobacco Type: Cigarettes and Smokeless Tobacco (Dip or Chew) Cigarettes Per Day: 1 PPD x 7-8 yrs; Second Hand Exposure: No; Do You Dip or Chew Tobacco: Yes (daily use; advised); Hx Alcohol Use: Yes Alcohol type: beer Hx Substance Use: Yes (medical card) Non-Prescribed Medications: Marijuana Last Used Substance Other:: gummies 1-2x/month Preferred Language: Upper Sorbian Communication Ability: Effective Visual Impairment: No Limitations Hearing Ability: Normal Drilling Assistant Required: No Beliefs That Will Affect Care: None marital status: Current Living Situation: Spouse and Family current occupational status: unemployed 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 [employer] How many Children do You have: 2 Feels Safe at Home: Yes Diet: diabetic during the past year weight has: remained stable Assistive Devices: BiPap and Glasses Allergies Allergies Allergy/AdvReac Type Severity Reaction Status Date / Time No Known Allergies Allergy Unknown Verified 12/09/24 06:22 Home Meds Home Medications Medication Instructions Recorded Confirmed losartan 50 mg-hydrochlorothiazide 1 tab PO BID 01/16/24 12/09/24 12.5 mg tablet metformin 500 mg tablet,extended 1,000 mg PO BID 01/16/24 12/09/24 release 24 hr tirzepatide 2.5 mg/0.5 mL 2.5 mg subcut Q7D 01/16/24 12/09/24 subcutaneous pen injector (Mag) sertraline 50 mg tablet (Zoloft) 50 mg PO QAM 06/17/24 12/09/24 potassium chloride 20 mEq 20 meq PO DIRECTED 08/20/24 12/09/24 tablet,extended release(part/cryst) nicotine 21 mg/24 hr daily 1 patch transdermal QAM PRN 09/09/24 12/09/24 transdermal patch (Nicoderm CQ) hospital stays amlodipine 5 mg tablet 5 mg PO QAM 12/03/24 12/09/24 dexamethasone 4 mg tablet 4 mg PO Q2D 12/03/24 12/09/24 Results & Data (ED) Vital Signs Vital Signs - 24 hr 02/01/25 12:03 02/01/25 12:37 02/01/25 12:37 Temperature 36.9 C Temperature Source Oral Pulse Rate 141 H Pulse Rate [Apical] 114 H Respiratory Rate 17 20 Respiratory Effort / Characteristics Non-Labored Spontaneous Non-Labored Spontaneous Respiratory Depth Normal Blood Pressure 108/62 Blood Pressure [Right Arm] 108/88 Blood Pressure Mean 77 Blood Pressure Mean [Right Arm] 94 Pulse Oximetry 93 92 92 Oxygen Delivery Method Room Air Room Air Room Air Sepsis Recent Fever Within 48 Hours No Sepsis New/Unexplained Change in Mental Status No Sepsis Action Taken by Nursing No Action Required 02/01/25 12:37 02/01/25 12:59 02/01/25 13:30 Temperature Temperature Source Pulse Rate 113 H 114 H Pulse Rate [Apical] 93 H Respiratory Rate 20 18 Respiratory Effort / Characteristics Respiratory Depth Blood Pressure Blood Pressure [Right Arm] 103/76 Blood Pressure Mean Blood Pressure Mean [Right Arm] 85 Pulse Oximetry 92 95 Oxygen Delivery Method Room Air Room Air Sepsis Recent Fever Within 48 Hours Sepsis New/Unexplained Change in Mental Status Sepsis Action Taken by Nursing 02/01/25 14:00 Temperature Temperature Source Pulse Rate Pulse Rate [Apical] 97 H Respiratory Rate 20 Respiratory Effort / Characteristics Respiratory Depth Blood Pressure Blood Pressure [Right Arm] 114/85 Blood Pressure Mean Blood Pressure Mean [Right Arm] 94 Pulse Oximetry 96 Oxygen Delivery Method Room Air Sepsis Recent Fever Within 48 Hours Sepsis New/Unexplained Change in Mental Status Sepsis Action Taken by Nursing Laboratory Data 02/01/25 12:13 02/01/25 12:13 Lab Results 02/01/25 Range/Units 12:13 WBC 17.54 H (4.8-10.8) K/ul RBC 5.93 (4.70-6.10) M/uL Hgb 16.4 (14.0-18.0) g/dl Hct 49.8 (42.0-52.0) % MCV 84.0 (80.0-100.0) fL MCH 27.7 (25.0-34.0) pg MCHC 32.9 (32.0-36.0) g/dL RDW Std Deviation 43.0 (36.4-46.3) fL RDW Coeff of Fani 14.2 (11.5-14.5) % Plt Count 229 (130-400) K/uL MPV 11.1 (9.4-12.4) fL Immature Gran % (Auto) 0.3 % Neut % (Auto) 83.6 % Lymph % (Auto) 8.9 % [place] % (Auto) 6.6 % Eos % (Auto) 0.2 % Baso % (Auto) 0.4 % Neut # (Auto) 14.67 H (1.40-6.50) K/uL Lymph # (Auto) 1.56 (1.20-3.40) K/uL [place] # (Auto) 1.15 H (0.11-0.59) K/uL Eos # (Auto) 0.03 (0.00-0.50) K/uL Baso # (Auto) 0.07 (0.00-0.20) K/uL Immature Gran # (Auto) 0.06 (0.01-0.20) K/uL Sodium 136 (136-145) mmol/L Potassium 3.1 L (3.5-5.1) mmol/L Chloride 98 (98-107) mmol/L Carbon Dioxide 23 (21-32) mmol/L Anion Gap 15 H (3-11) BUN 15 (6-23) mg/dl Creatinine 0.90 (0.6-1.4) mg/dl Est Cr Clr Drug Dosing 116.7 ml/min eGFR 102.76 BUN/Creatinine Ratio 16.7 (10-20) Glucose 128 H (70-99(Fasting)) mg/dl Calcium 9.5 (8.6-10.3) mg/dl Total Bilirubin 0.8 (0.2-1.0) mg/dl AST 19 (13-39) U/L ALT 46 (7-52) U/L Alkaline Phosphatase 52 (34-104) U/L Troponin I High Sens 5.5 (0-20) pg/ml Total Protein 7.6 (6.0-8.3) gm/dl Albumin 4.2 (3.4-5.0) gm/dl Globulin 3.4 (2.5-4.0) gm/dl Albumin/Globulin Ratio 1.2 (0.9-2) Lipase 18 (11-82) U/L Administered Medications Discontinued Medications Levetiracetam (Levetiracetam 500 Mg/5 Ml Vial) 1,000 mg IV NOW STA Stop: 02/01/25 14:37 Last Admin: 02/01/25 14:43 Dose: 1,000 mg Documented By: [email or web address] Imaging Data Radiologist's Impression: Chest X-Ray 02/01/25 12:13 XR chest 1V portable CLINICAL HISTORY: Chest pain, nonspecific COMPARISON STUDY: Chest radiograph December 09, 2024. FINDINGS: Right internal jugular [id number] remains in place. Lung volumes are normal. Lungs are clear. There is no pneumothorax or pleural effusion. Cardiac size is normal. Mediastinal contours are normal. There is no evidence for pulmonary edema. IMPRESSION: No acute cardiopulmonary findings. ACT 112: Negative or not required by law. Electronically signed by: Jose Cruz Coon M.D. 02/01/2025 2:[address] 02/01/25 12:13 CT SCAN OF THE BRAIN WITHOUT IV CONTRAST CLINICAL HISTORY: Right-sided weakness. Glioblastoma. COMPARISON STUDY: Head CT and CTA of the head May 06, 2024. MRI of the brain November 18, 2024. TECHNIQUE: Unenhanced axial CT scan of the brain was performed from the vertex to the skull base. A dose lowering technique was utilized adhering to the principles of ALARA. CT DOSE: 625.8 mGy.cm FINDINGS: Left-sided craniotomy is noted. No acute intracranial hemorrhage, midline shift or mass effect is present. Multifocal calcifications measuring up to 1.5 cm within the left parietal lobe are noted. Several adjacent hypodense foci are noted, including a 2.6 x 0.9 cm focus within the left splenium of the corpus callosum on image 80 of 120. No definite corresponding abnormality was identified on MRI of November 18, 2024. Smaller adjacent hypodense focus adjacent to the atrium of the left lateral ventricle is present. Basal cisterns are patent. There are no extra axial collections. No findings to suggest acute dural sinus thrombosis or acute territorial infarct. IMPRESSION: 1. No acute intracranial hemorrhage. 2. Status post left parietal craniotomy. Hypodensity within the operative bed with multifocal calcifications. These are nonspecific although could represent treated tumor. 3. Adjacent hypodensities, including a 2.6 x 0.9 cm focus within the left splenium of the corpus callosum. This abnormality appears new since CT of November 18, 2024. This is nonspecific and could be treatment-related although underlying tumor cannot be excluded on unenhanced CT. ACT 112: Negative or not required by law. Electronically signed by: Jose Cruz Coon M.D. 02/01/2025 2:03 PM Discharge Plan Visit Data Chief Complaint: Neuro Symptoms/Deficit Stated Complaint: BRAIN CANCER RT SIDE SPASMS ED Provider: Dm King Discharge Problem: Glioblastoma multiforme of parietal lobe, Right leg weakness, Twitching Condition: Fair Forms Stand Alone Forms: My [employer] Prescriptions Prescriptions: No Action sertraline [Zoloft] 50 mg tablet 50 mg PO QAM losartan-hydrochlorothiazide 50-12.5 mg tablet 1 tab PO BID metformin 500 mg tablet extended release 24 hr 1,000 mg PO BID Mounjaro 2.5 mg/0.5 mL pen injector 2.5 mg SUBCUT Q7D Rx Instructions: Sunday potassium chloride 20 mEq tablet,ER particles/crystals 20 meq PO DIRECTED Rx Instructions: Every 2 weeks pt goes to get blood drawn. If potassium is low then patient take 20meq daily x 7 days then stops. nicotine [Nicoderm CQ] 21 mg/24 hr patch 24 hour 1 patch transdermal QAM PRN (Reason: hospital stays) amlodipine 5 mg tablet 5 mg PO QAM dexamethasone 4 mg tablet 4 mg PO Q2D Referrals Referrals: Beverly Gonzales CRNP [Primary Care Provider] -
[2025-02-01 12:39] LABS: Hematocrit (blood only) 49.8 % (42.0-52.0); Hemoglobin 16.4 g/dl (14.0-18.0); Immature Granulocytes # (auto) 0.06 K/uL (0.01-0.20); Immature Granulocytes % (auto) 0.3 %; Mean Corpuscular Hemoglobin 27.7 pg (25.0-34.0); Mean Corpuscular Volume 84.0 fL (80.0-100.0); Platelet Count 229 K/uL (130-400); RDW Standard Deviation 43.0 fL (36.4-46.3); Red Blood Count 5.93 M/uL (4.70-6.10); White Blood Count 17.54 K/ul (4.8-10.8)
[2025-02-01 12:55] LABS: Alanine Aminotransferase 46.0 U/L (7-52); Albumin Globulin Ratio 1.2 (0.9-2); Albumin Level 4.2 gm/dl (3.4-5.0); Alkaline Phosphatase 52.0 U/L (34-104); Anion Gap 15.0 (3-11); Bilirubin,Total 0.8 mg/dl (0.2-1.0); Blood Urea Nitrogen 15.0 mg/dl (6-23); Calcium 9.5 mg/dl (8.6-10.3); Carbon Dioxide 23.0 mmol/L (21-32); Chloride 98.0 mmol/L (98-107); Creatinine Clr Calc Pharmacy 116.7 ml/min; Globulin 3.4 gm/dl (2.5-4.0); Glucose 128.0 mg/dl (70-99(Fasting)); Lipase 18.0 U/L (11-82); Potassium 3.1 mmol/L (3.5-5.1); Sodium 136.0 mmol/L (136-145); Total Protein 7.6 gm/dl (6.0-8.3)
--- NOTE | 2025-02-01 14:05 | CT Scan Report ---
CT SCAN OF THE BRAIN WITHOUT IV CONTRAST CLINICAL HISTORY: Right-sided weakness. Glioblastoma. COMPARISON STUDY: Head CT and CTA of the head May 06, 2024. MRI of the brain November 18, 2024. TECHNIQUE: Unenhanced axial CT scan of the brain was performed from the vertex to the skull base. A dose lowering technique was utilized adhering to the principles of ALARA. CT DOSE: 625.8 mGy.cm FINDINGS: Left-sided craniotomy is noted. No acute intracranial hemorrhage, midline shift or mass eff ect is present. Multifocal calcifications measuring up to 1.5 cm within the left parietal lobe are no anuradha. Several adjacent hypodense foci are noted, including a 2.6 x 0.9 cm focus within the left spleni um of the corpus callosum on image 80 of 120. No definite corresponding abnormality was identified on MRI of November 18, 2024. Smaller adjacent hypodense focus adjacent to the atrium of the left lateral ventricle is present. Basal cisterns are patent. There are no extra axial collections. No findings to suggest acute dural sinus thrombosis or acute territorial infarct. IMPRESSION: 1. No acute intracranial hemorrhage. 2. Status post left parietal craniotomy. Hypodensity within the operative bed with multifocal calcifi cations. These are nonspecific although could represent treated tumor. 3. Adjacent hypodensities, including a 2.6 x 0.9 cm focus within the left splenium of the corpus call osum. This abnormality appears new since CT of November 18, 2024. This is nonspecific and could be joceline tment-related although underlying tumor cannot be excluded on unenhanced CT. ACT 112: Negative or not required by law. Electronically signed by: Jose Cruz Coon M.D. 02/01/2025 2:03 PM
--- NOTE | 2025-02-01 14:16 | XRay Report ---
XR chest 1V portable CLINICAL HISTORY: Chest pain, nonspecific COMPARISON STUDY: Chest radiograph December 09, 2024. FINDINGS: Right internal jugular [id number] remains in place. Lung volumes are normal. Lungs are c lear. There is no pneumothorax or pleural effusion. Cardiac size is normal. Mediastinal contours are normal. There is no evidence for pulmonary edema. IMPRESSION: No acute cardiopulmonary findings. ACT 112: Negative or not required by law. Electronically signed by: Jose Cruz Coon M.D. 02/01/2025 2:14 PM
--- NOTE | 2025-02-01 15:01 | History & Physical Report ---
Date of Service February 01, 2025 Assessment & Plan (1) Spasmodic movement of extremities: (2) Glioblastoma multiforme of parietal lobe: (3) Sleep apnea: (4) Hypokalemia: (5) Diabetes: Plan This is a 54 y/o male with glioblastoma s/p resection 01/16 ([facility] neurosurgery), now using Optune and Avastin (follows w/ [facility]), DM2, ELY on BiPAP, HTN, and other history as outlined below who presented to the ED with twitching and spasm of his right arm and leg. Lab work in the ED significant for elevated WBCs at 17.54, potassium 3.1. CT head showed no acute intracranial hemorrhage, +hypodensity w/in operative bed w/ multifocal calcifications, +adjacent hypodensities including 2.6 x 0.9 cm focus w/in left splenium of corpus callosum (new from 11/17 - treatment related vs. underlying tumor). Pt seen be teleneurology in the ED who recommended initiation of Keppra and admission for further work-up. #Episodic RUE/RLE spasmodic movements #Glioblastoma s/p resection 01/16, now treated w/ Optune/Avastin - Admit to med telemetry - EEG to evaluate for possible seizure - Continue Keppra initiated in the ED - MRI brain with and without contrast to further evaluate hypodensities seen on the non-contrast CT - IV dexamethasone 10 mg today, reassess additional steroid dosing tomorrow pending MRI results/response - Fall precautions - Suspect leukocytosis related to steroids but will monitor closely, no evidence of acute infection at present - repeat CBC in AM. #Hypokalemia - Check mag level - Replete oral - Labs in AM - May need to consider taking more consistently as outpatient since appears to be a recurrent issue for patient #Type 2 Diabetes - BSG ACHS - will need to monitor glucose closely in the setting of increased steroid dosing - Hold Metformin - Insulin sliding scale - Diabetic diet #ELY on BiPAP - BiPAP HS per protocol #Hypertension - Chronic, stable - continue outpatient regimen Pt seen and reviewed with collaborating physician, Dr. Curiel. Plan of care discussed and as outlined above. Code status: full code DVT prophylaxis: SCDs for now Tova Ferraro PA-C History of Present Illness Chief Complaint: spasms of right arm and right leg Primary Care Provider: DON Bourne This is a 54 y/o male with glioblastoma s/p resection 01/16 ([facility] neurosurgery), now using Optune and Avastin (follows w/ [facility]), DM2, ELY on BiPAP, HTN, and other history as outlined below who presented to the ED with twitching and spasm of his right arm and leg. Pt reports chronic right hemiparesis and occasional twitching of the right leg. However, this morning, he developed twitching then spasm of his right arm, which is unusual for him. Initially, he attributed this to anxiety so he tried take a gummy, but no relief of symptoms. These symptoms lasted about an hour before he came to the ED for evaluation. He denies associated vision changes, tinnitus, loss of consciousness, near-syncope. He has chronic numbness and tingling in the right leg, which was no worse than usual. He notes that he didn't eat breakfast today, which is different than his normal. He has been working with oncology to slowly taper the dexamethasone; dose was decreased from 2 mg daily to 2 mg every other day about three weeks ago. He is due for Avastin on Sunday. He notes similar symptoms in April when his steroids were decreased from BID to daily and for which he was admitted and found to have tumor progression and vasogenic edema. No recurrent symptoms until now since then. He denies fevers, chills, sweats, cough, congestion, rhinorrhea, vomiting, abdominal pain, recent illness. Allergies Allergy/AdvReac Type Severity Reaction Status Date / Time No Known Allergies Allergy Unknown Verified 12/09/24 06:22 Home Medications Medication Instructions Recorded Confirmed Type losartan 50 mg-hydrochlorothiazide 1 tab PO BID 01/16/24 02/01/25 History 12.5 mg tablet metformin 500 mg tablet,extended 1,000 mg PO BID 01/16/24 02/01/25 History release 24 hr tirzepatide 2.5 mg/0.5 mL 2.5 mg subcut Q7D 01/16/24 02/01/25 History subcutaneous pen injector (Mounjaro) sertraline 50 mg tablet (Zoloft) 50 mg PO QAM 06/17/24 02/01/25 History potassium chloride 20 mEq 20 meq PO DIRECTED 08/20/24 02/01/25 History tablet,extended release(part/cryst) amlodipine 10 mg tablet 10 mg PO DAILY 02/01/25 02/01/25 History dexamethasone 2 mg tablet 2 mg PO Q2D 02/01/25 02/01/25 History famotidine 20 mg tablet 20 mg PO DAILY 02/01/25 02/01/25 History hydroxyzine pamoate 25 mg capsule 25 mg PO TID PRN Anxiety 02/01/25 02/01/25 History ondansetron HCl 4 mg tablet 4 mg PO Q6H PRN Nausea 02/01/25 02/01/25 History Past Med/Surg History Problem List (Updated 02/01/25 @ 16:01 by Kiana Ferraro PA-C) Spasmodic movement of extremities Twitching (Acute) Tobacco use Hyperlactatemia Hypokalemia Morbid obesity Brain cancer Right arm weakness (Acute) Right leg weakness (Acute) Sleep apnea bipap Diabetes HTN (hypertension) Glioblastoma multiforme of parietal lobe (Chronic 01/22/24) Medical History Hx of gastroesophageal reflux (GERD) Infected venous access port 07/2024- patient admitted to [facility]- port removed 08/20/24 Morbid obesity assisted (current) use of systemic steroids dexamethasone daily r/t brain swelling. Sleep apnea bipap Hypokalemia takes potassium prn. Hypertension Diabetes mellitus, type 2 NIDDM + GLP-1 weekly injection Anxiety Right leg weakness due to brain cancer Glioblastoma multiforme of parietal lobe following with onc at [facility]- s/p craniotomy and tumor resection 12/2023- has loss of feeling in right leg + currently treated with immunotherapy. Surgical History H/O insertion of central venous access port (07/02/24) Insertion of Access Port with Fluoroscopy(Left) - Tato Lutz DO, MARCOS History of removal of Port-a-Cath (08/20/24) Aport Removal - Tato Lutz DO, MARCOS History of surgery Left hand surgery d/t nail in hand S/P craniotomy (01/22/24) Left craniotomy for tumor resection 01/22/24 Dr. Lopez at [facility] Family History Mother No problems noted. Father Diabetes Hypertension Brother No problems noted. Sister No problems noted. Son No problems noted. Daughter No problems noted. Grandmother Diabetes Other Cancer No family history of adverse response to anesthesia Social History Smoking Status: Never smoker Tobacco Type: Cigarettes and Smokeless Tobacco (Dip or Chew) Cigarettes Per Day: 1 PPD x 7-8 yrs; Second Hand Exposure: No; Do You Dip or Chew Tobacco: Yes (daily use; advised); Hx Alcohol Use: Yes Alcohol type: beer Hx Substance Use: Yes (medical card) Non-Prescribed Medications: Marijuana Last Used Substance Other:: gummies 1-2x/month Preferred Language: Arabic Communication Ability: Effective Visual Impairment: No Limitations Hearing Ability: Normal [employer] Instructor Required: No Beliefs That Will Affect Care: None marital status: Current Living Situation: Spouse and Family current occupational status: unemployed 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 [employer] How many Children do You have: 2 Feels Safe at Home: Yes Diet: diabetic during the past year weight has: remained stable Assistive Devices: BiPap and Glasses Review of Systems Review of Systems: All systems reviewed & are unremarkable except as noted in Subjective Physical Exam Physical Exam: General: awake, alert, NAD, Ox3 HEENT: PERRL, difficulty with EOMs with right eye, no difficulty noted on left, tongue midline, facial expressions symmetric Neck: supple, trachea midline Heart: RRR Lungs: CTA bilaterally, no W/R/R Abdomen: soft, NT, +BS Extremities: no pedal edema, distal pulses intact and equal Neurologic: RUE and RLE strength 3/5, LUE and LLE strength 4/5, +clonus right foot, +mild right pronator drift with eyes closed, +difficulty with finger to nose on right, normal on left Results & Data Results & Data Vital Signs (Past 12 Hours) Vital Signs Temp Pulse Pulse Resp BP BP Pulse Ox 02/01/25 14:00 97 H 20 114/85 96 02/01/25 13:30 93 H 18 103/76 95 02/01/25 12:59 114 H 02/01/25 12:37 113 H 20 92 02/01/25 12:37 92 02/01/25 12:37 114 H 20 108/88 92 02/01/25 12:03 36.9 C 141 H 17 108/62 93 O2 Del Method 02/01/25 14:00 Room Air 02/01/25 13:30 Room Air 02/01/25 12:59 02/01/25 12:37 Room Air 02/01/25 12:37 Room Air 02/01/25 12:37 Room Air 02/01/25 12:03 Room Air Laboratory Results Lab Results 02/01/25 Range/Units 12:13 WBC 17.54 H (4.8-10.8) K/ul RBC 5.93 (4.70-6.10) M/uL Hgb 16.4 (14.0-18.0) g/dl Hct 49.8 (42.0-52.0) % MCV 84.0 (80.0-100.0) fL MCH 27.7 (25.0-34.0) pg MCHC 32.9 (32.0-36.0) g/dL RDW Std Deviation 43.0 (36.4-46.3) fL RDW Coeff of Fani 14.2 (11.5-14.5) % Plt Count 229 (130-400) K/uL MPV 11.1 (9.4-12.4) fL Immature Gran % (Auto) 0.3 % Neut % (Auto) 83.6 % Lymph % (Auto) 8.9 % [place] % (Auto) 6.6 % Eos % (Auto) 0.2 % Baso % (Auto) 0.4 % Neut # (Auto) 14.67 H (1.40-6.50) K/uL Lymph # (Auto) 1.56 (1.20-3.40) K/uL [place] # (Auto) 1.15 H (0.11-0.59) K/uL Eos # (Auto) 0.03 (0.00-0.50) K/uL Baso # (Auto) 0.07 (0.00-0.20) K/uL Immature Gran # (Auto) 0.06 (0.01-0.20) K/uL Sodium 136 (136-145) mmol/L Potassium 3.1 L (3.5-5.1) mmol/L Chloride 98 (98-107) mmol/L Carbon Dioxide 23 (21-32) mmol/L Anion Gap 15 H (3-11) BUN 15 (6-23) mg/dl Creatinine 0.90 (0.6-1.4) mg/dl Est Cr Clr Drug Dosing 116.7 ml/min eGFR 102.76 BUN/Creatinine Ratio 16.7 (10-20) Glucose 128 H (70-99(Fasting)) mg/dl Calcium 9.5 (8.6-10.3) mg/dl Total Bilirubin 0.8 (0.2-1.0) mg/dl AST 19 (13-39) U/L ALT 46 (7-52) U/L Alkaline Phosphatase 52 (34-104) U/L Troponin I High Sens 5.5 (0-20) pg/ml Total Protein 7.6 (6.0-8.3) gm/dl Albumin 4.2 (3.4-5.0) gm/dl Globulin 3.4 (2.5-4.0) gm/dl Albumin/Globulin Ratio 1.2 (0.9-2) Lipase 18 (11-82) U/L Diagnostic Findings Chest X-Ray 02/01/25 12:13 XR chest 1V portable CLINICAL HISTORY: Chest pain, nonspecific COMPARISON STUDY: Chest radiograph December 09, 2024. FINDINGS: Right internal jugular [id number] remains in place. Lung volumes are normal. Lungs are clear. There is no pneumothorax or pleural effusion. Cardiac size is normal. Mediastinal contours are normal. There is no evidence for pulmonary edema. IMPRESSION: No acute cardiopulmonary findings. ACT 112: Negative or not required by law. Electronically signed by: Jose Cruz Coon M.D. 02/01/2025 2:[address] 02/01/25 12:13 CT SCAN OF THE BRAIN WITHOUT IV CONTRAST CLINICAL HISTORY: Right-sided weakness. Glioblastoma. COMPARISON STUDY: Head CT and CTA of the head May 06, 2024. MRI of the brain November 18, 2024. TECHNIQUE: Unenhanced axial CT scan of the brain was performed from the vertex to the skull base. A dose lowering technique was utilized adhering to the principles of ALARA. CT DOSE: 625.8 mGy.cm FINDINGS: Left-sided craniotomy is noted. No acute intracranial hemorrhage, midline shift or mass effect is present. Multifocal calcifications measuring up to 1.5 cm within the left parietal lobe are noted. Several adjacent hypodense foci are noted, including a 2.6 x 0.9 cm focus within the left splenium of the corpus callosum on image 80 of 120. No definite corresponding abnormality was identified on MRI of November 18, 2024. Smaller adjacent hypodense focus adjacent to the atrium of the left lateral ventricle is present. Basal cisterns are patent. There are no extra axial collections. No findings to suggest acute dural sinus thrombosis or acute territorial infarct. IMPRESSION: 1. No acute intracranial hemorrhage. 2. Status post left parietal craniotomy. Hypodensity within the operative bed with multifocal calcifications. These are nonspecific although could represent treated tumor. 3. Adjacent hypodensities, including a 2.6 x 0.9 cm focus within the left splenium of the corpus callosum. This abnormality appears new since CT of November 18, 2024. This is nonspecific and could be treatment-related although underlying tumor cannot be excluded on unenhanced CT. ACT 112: Negative or not required by law. Electronically signed by: Jose Cruz Coon M.D. 02/01/2025 2:03 PM Medications Administered Discontinued Medications Levetiracetam (Levetiracetam 500 Mg/5 Ml Vial) 1,000 mg IV NOW STA Stop: 02/01/25 14:37 Last Admin: 02/01/25 14:43 Dose: 1,000 mg Documented By: jodee Supervising Physician Co-Signing Physician Notes Patient seen and examined at bedside. Patient states he had a shaking episode on his right side, arm and leg, uncontrollable, lasted between 20 and 60 mins. Has happened several times before, this was worst. On exam, NIHSS of 3 for drift right arm and right leg, and mild mild word finding difficulty, large body habitus. Leukocytosis noted likely 2/2 decadron use, K of 3.1 replenished, CT head revealing possible new findings. Patient presenting with right arm and leg shaking concerning for seizure activity in setting of glioblastoma multiforme. On bevacizumab and Optume. Neuro exam concerning for possibly new deficits as well. Given new neuro findings and seizure activity significant concern for tumor progression or new metastasis. Teleneurology recommended MR head, starting keppra. Given high concern for worsening mass effect or new mets, will start decadron 10mg IV and start 5mg IV bid from here on out until MRI back. Will check phos and TSH to finish metabolic workup. Will need neurology consult inpatient, stroke order set given presentation. I have seen and discussed the case with the collaborating advanced practitioner. I agree with the above H&P. I have reviewed and confirmed the patients medical history, the findings on physical examination, and the patients diagnosis and treatment plan with Kiana Ferraro PA-C and agree with the information documented. I spent a total of 30 minutes coordinating, documenting, and providing care for this patient excluding time spent in the performance of separately billed services. All of the aforementioned completed outside of collaborating with the assigned advanced practitioner for a full treatment plan. 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
[2025-02-01] MEDS ORDERED: DEXTROSE 50% 50 ML SYRINGE IV PRN (15:53)
[2025-02-01] MEDS ORDERED: GLUCOSE 10 TAB/TUBE PO PRN (15:53)
[2025-02-01] MEDS ORDERED: CARBOHYDRATES FOR HYPOGLYCEMIA PO PRN (15:53)
[2025-02-01] MEDS ORDERED: GLUCOSE 40% GEL 15 GM TUBE PO PRN (15:53)
[2025-02-01] MEDS ORDERED: GLUCAGON FOR INJ 1 MG VIAL SQ PRN (15:53)
[2025-02-01] MEDS: dexAMETHasone 10 MG in SYRINGE 0 ML IV ONE (16:02)
[2025-02-01] MEDS: POTASSIUM CHLORIDE CRTAB 20 MEQ TABCR PO STA (16:02)
[2025-02-01 16:17] LABS: Magnesium 1.5 mg/dl (1.7-2.4)
[2025-02-01] MEDS: GADOBUTROL 15ML VIAL IV ONE (17:09)
[2025-02-01] MEDS ORDERED: ONDANSETRON 4 MG OD TAB PO PRN (17:51)
[2025-02-01] MEDS ORDERED: PHARMACIST DISCHARGE MED REC CONSULT PRN (18:11)
[2025-02-01] MEDS: INSULIN ASPART PER UNIT CHARGE SC SCH (18:29)
[2025-02-01] MEDS: MAGNESIUM SULFATE / D5W 1 GM/100 ML BAG IV ONE (18:47)
--- NOTE | 2025-02-01 19:17 | Magnetic Resonance Report ---
EXAM: MR brain wo/w con CLINICAL HISTORY: hx GBM, new RUE spasm TECHNIQUE: Multiplanar and multi-echo MRI of the brain was performed with and without contrast. 12 ml Gadavist was given as an intravenous contrast. COMPARISON: 11/18/2024 MRI, 07/29/2024 MRI, and 05/06/2024 MRI FINDINGS: Brain Parenchyma: A lobulated, marginally enhancing intra-axial mass is noted peritrigonal at the left parieto-occipital lobe with involvement of the posterior body of the corpus callosum. It measures 2 x 3 x 3.6 cm in anteroposterior, transverse, and craniocaudal dimensions. It shows central necrosis and a small central area of high signal on T1, likely representing a hemorrhagic streak. It is associated with mild ependymal enhancement of the occipital horn of the left lateral ventricle. It is surrounded by a moderate degree of vasogenic edema. The edema signal crosses the corpus callosum into the right peritrigonal occipital region, with extension of the abnormal high T2 signal to the right parietal periventricular region. The mass and edema exert mass effect in the form of effacement of the related cortical sulci and compression of the occipital horn of the left lateral ventricle. Another nearby heterogeneously enhancing lesion with streaks of hemorrhage is noted subcortically at the left high parietal region. It measures 4 x 1.2 x 2.7 cm in anteroposterior, transverse, and craniocaudal dimensions. It is surrounded by mild vasogenic edema, exerting mass effect in the form of effacement of the related cortical sulci. The previously described lesions show mild restriction on DWI images. No evidence of acute infarct. Few foci of high T2 signal are noted within the brainstem, likely representing small vessel disease. Ventricular System: No evidence of hydrocephalus or ventricular enlargement. Subarachnoid Spaces: Normal sulci and cisterns. No evidence of subarachnoid hemorrhage or extra-axial fluid collections. Meninges: Mild dural thickening overlying the above lesions at the operative bed. No other abnormal meningeal enhancement or thickening. Orbits: Normal appearance of the globes, optic nerves, and extraocular muscles. No evidence of orbital masses or abnormal signal. Skull: Normal appearance of the skull. No evidence of fractures or abnormal signal changes. Left parietal craniotomy is again noted. IMPRESSION: 1. Two intra-axial, marginally enhancing masses with surrounding moderate vasogenic edema are noted at the left peritrigonal and left subcortical high parietal region, measuring 2 x 3 x 3.6 cm and 4 x 1.2 x 2.7 cm, respectively, with intralesional hemorrhagic streaks. The former shows involvement of the corpus callosum with contralateral extension (butterfly pattern). Interval progression. 2. Findings are suggestive of recurrent GBM rather than postradiation changes. Advise MR spectroscopy and MR perfusion if clinically warranted. Electronically signed by Sukh Masters 02-01-2025 7:15 PM
[2025-02-01 19:27] LABS: Thyroid Stimulating Hormone 1.166 uIu/ml (0.300-4.500)
[2025-02-01] MEDS: LOSARTAN/HCTZ 50/12.5MG TAB PO SCH (20:06)
[2025-02-01] MEDS: levETIRAcetam 500 MG TAB PO SCH (20:06)
[2025-02-02] MEDS: POTASSIUM CHLORIDE CRTAB 20 MEQ TABCR PO STA (09:05)
[2025-02-02] MEDS: SERTRALINE HCL 50 MG TABLET PO SCH (09:06)
[2025-02-02] MEDS: MAGNESIUM SULFATE / D5W 1 GM/100 ML BAG IV SCH (09:13)
[2025-02-02] MEDS: POTASSIUM CHLORIDE / WTR 10 MEQ/100 ML PLCT IV SCH (09:14)
[2025-02-02] MEDS: FAMOTIDINE 20 MG TAB PO SCH (09:21)
[2025-02-02 10:07] LABS: Hematocrit (blood only) 45.1 % (42.0-52.0); Hemoglobin 15.3 g/dl (14.0-18.0); Immature Granulocytes # (auto) 0.09 K/uL (0.01-0.20); Immature Granulocytes % (auto) 0.6 %; Mean Corpuscular Hemoglobin 28.2 pg (25.0-34.0); Mean Corpuscular Volume 83.1 fL (80.0-100.0); Platelet Count 243 K/uL (130-400); RDW Standard Deviation 43.2 fL (36.4-46.3); Red Blood Count 5.43 M/uL (4.70-6.10); White Blood Count 14.19 K/ul (4.8-10.8)
[2025-02-02] MEDS: NICOTINE 14 MG/24 HR PATCH TD SCH (10:08)
[2025-02-02 10:23] LABS: Hemoglobin A1C 6.0 % (4.5-5.6)
--- NOTE | 2025-02-02 10:23 | Electroencephalogram ---
EEG Procedure Note Date of Service February 02, 2025 Start / End Times Start Time: 8:27 AM End Time: 8:47 AM Referring Physician Jasmine History Seizure-like activity Home Medication List Medication Instructions Recorded Confirmed Type losartan 50 mg-hydrochlorothiazide 1 tab PO BID 01/16/24 02/01/25 History 12.5 mg tablet metformin 500 mg tablet,extended 1,000 mg PO BID 01/16/24 02/01/25 History release 24 hr tirzepatide 2.5 mg/0.5 mL 2.5 mg subcut Q7D 01/16/24 02/01/25 History subcutaneous pen injector (Mounjaro) sertraline 50 mg tablet (Zoloft) 50 mg PO QAM 06/17/24 02/01/25 History potassium chloride 20 mEq 20 meq PO DIRECTED 08/20/24 02/01/25 History tablet,extended release(part/cryst) amlodipine 10 mg tablet 10 mg PO DAILY 02/01/25 02/01/25 History dexamethasone 2 mg tablet 2 mg PO Q2D 02/01/25 02/01/25 History famotidine 20 mg tablet 20 mg PO DAILY 02/01/25 02/01/25 History hydroxyzine pamoate 25 mg capsule 25 mg PO TID PRN Anxiety 02/01/25 02/01/25 History ondansetron HCl 4 mg tablet 4 mg PO Q6H PRN Nausea 02/01/25 02/01/25 History Inpatient Medication List Amlodipine Besylate (Amlodipine Besylate 5 Mg Tab) 10 mg PO DAILY MADELIN Stop: 03/04/25 08:59 Last Admin: 02/02/25 09:06 Dose: 10 mg Documented By: Artie Famotidine (Famotidine 20 Mg Tab) 20 mg PO DAILY MADELIN Stop: 03/04/25 08:59 Last Admin: 02/02/25 09:21 Dose: 20 mg Documented By: Artie HCTZ/Losartan Potassium (Losartan/Hctz 50/12.5mg Tab) 1 tab PO BID MADELIN Stop: 03/03/25 20:59 Last Admin: 02/02/25 09:07 Dose: 1 tab Documented By: [facility] Admin: 02/01/25 20:07 Dose: Not Given Documented By: [facility] Potassium Chloride (K Kirill / Wtr) 10 meq in 100 mls @ 100 mls/hr IV Q1H MADELIN Stop: 02/02/25 10:44 Last Admin: 02/02/25 10:14 Dose: 100 mls/hr Documented By: Infusion: 02/02/25 10:14 Dose: Infused Documented By: Admin: 02/02/25 09:14 Dose: 100 mls/hr Documented By: RENETTA Magnesium Sulfate/Dextrose (Magnesium Sulfate / D5w) 1 gm in 100 mls @ 50 mls/hr IV Q2H MADELIN Stop: 02/02/25 12:44 Last Admin: 02/02/25 09:13 Dose: 50 mls/hr Documented By: RENETTA Insulin Aspart (Insulin Aspart Per Unit Charge) 0 units SC ACHS MADELIN Stop: 03/03/25 16:29 Last Admin: 02/02/25 10:07 Dose: 8 units Documented By: RENETTA Co-signed By: jace Admin: 02/01/25 20:06 Dose: Not Given Documented By: Admin: 02/01/25 18:29 Dose: Not Given Documented By: ashley Levetiracetam (Levetiracetam 500 Mg Tab) 500 mg PO BID MADELIN Stop: 03/03/25 20:59 Last Admin: 02/02/25 09:06 Dose: 500 mg Documented By: Admin: 02/01/25 20:06 Dose: 500 mg Documented By: ADRIÁN Nicotine (Nicotine 14 Mg/24 Hr Patch) 1 patch TD QAM [facility] Stop: 03/04/25 09:44 Last Admin: 02/02/25 10:08 Dose: 1 patch Documented By: RENETTA Sertraline HCl (Sertraline Hcl 50 Mg Tablet) 50 mg PO QAM [facility] Stop: 03/04/25 08:59 Last Admin: 02/02/25 09:06 Dose: 50 mg Documented By: RENETTA Discontinued Medications Gadobutrol (Gadobutrol 15ml Vial) 12 ml IV ONCE ONE Stop: 02/01/25 17:09 Last Admin: 02/01/25 17:09 Dose: 12 ml Documented By: JEISON Dexamethasone 10 mg/ Syringe 2.5 mls @ 1.25 mls/min IV ONE ONE Stop: 02/01/25 15:49 Last Admin: 02/01/25 16:02 Dose: 1.25 mls/min Documented By: ANNA Magnesium Sulfate/Dextrose (Magnesium Sulfate / D5w) 1 gm in 100 mls @ 50 mls/hr IV ONE ONE Stop: 02/01/25 19:26 Last Infusion: 02/01/25 21:09 Dose: Infused Documented By: Admin: 02/01/25 18:47 Dose: 50 mls/hr Documented By: ashley Levetiracetam (Levetiracetam 500 Mg/5 Ml Vial) 1,000 mg IV NOW STA Stop: 02/01/25 14:37 Last Admin: 02/01/25 14:43 Dose: 1,000 mg Documented By: jodee Potassium Chloride (Potassium Chloride Crtab 20 Meq Tabcr) 40 meq PO NOW STA Stop: 02/01/25 15:51 Last Admin: 02/01/25 16:02 Dose: 40 meq Documented By: ANNA Potassium Chloride (Potassium Chloride Crtab 20 Meq Tabcr) 40 meq PO NOW STA Stop: 02/02/25 08:27 Last Admin: 02/02/25 09:05 Dose: 40 meq Documented By: [facility] Description This is a 21 electrode EEG with a single channel dedicated to limited EKG. The electrodes were placed in accordance with the International 10-20 system. There is a posterior dominant rhythm of 10 Hz which is symmetrically distributed and attenuates with eye opening. There is a normal anterior to posterior organization. Photic stimulation is unremarkable. There is a symmetric frontal beta rhythm. There is fairly continuous left parietal theta slowing with a frequency of 4 Hz, associated sharps. Interpretation Abnormal awake/drowsy EEG with left parietal slowing and sharps potentially indicating an increased risk for seizures. [facility] EEG Procedure Codes Indication for Procedure (1) Seizure-like activity: Neurology Neurology: 91229 EEG include record awake & drowsy
[2025-02-02 10:49] LABS: Anion Gap 10.0 (3-11); Calcium 9.3 mg/dl (8.6-10.3); Carbon Dioxide 24.0 mmol/L (21-32); Chloride 103.0 mmol/L (98-107); Magnesium 2.2 mg/dl (1.7-2.4); Potassium 3.9 mmol/L (3.5-5.1); Sodium 137.0 mmol/L (136-145)
[2025-02-02 10:59] LABS: Glucose 143.0 mg/dl (70-99(Fasting))
[2025-02-02] MEDS: ACETAMINOPHEN 500 MG TAB PO PRN (11:02)
[2025-02-02 11:09] LABS: Blood Urea Nitrogen 24.0 mg/dl (6-23); Creatinine Clr Calc Pharmacy 122.9 ml/min
--- NOTE | 2025-02-02 12:14 | Hospitalist Progress Note ---
Date of Service February 02, 2025 Assessment & Plan (1) Spasmodic movement of extremities: (2) Glioblastoma multiforme of parietal lobe: (3) Sleep apnea: (4) Hypokalemia: (5) Diabetes: Plan This is a 54 y/o male with glioblastoma s/p resection 01/16 ([facility] [place] now using Optune and Avastin (follows w/ CCP), DM2, ELY on BiPAP, HTN, and other history as outlined below who presented to the ED with twitching and spasm of his right arm and leg. Lab work in the ED significant for elevated WBCs at 17.54, potassium 3.1. CT head showed no acute intracranial hemorrhage, +hypodensity w/in operative bed w/ multifocal calcifications, +adjacent hypodensities including 2.6 x 0.9 cm focus w/in left splenium of corpus callosum (new from 11/17 - treatment related vs. underlying tumor). Pt seen be teleneurology in the ED who recommended initiation of Keppra and admission for further work-up. #Episodic RUE/RLE spasmodic movements #Glioblastoma s/p resection 01/16, now treated w/ Optune/Avastin - Status post teleneurology evaluation and recommendation as below - EEG to evaluate for possible seizure - Continue Keppra initiated in the ED - MRI brain showed 2 intra-atrial, marginally enhancing masses with surrounding moderate vasogenic edema noted at the left peritrigonal and left subcortical high parietal region measuring 2 x 3 x 3.6 and 4 x 1.2 x 2.7 cm respectively with intralesional hemorrhagic springs. The former shows involvement of the corpus callosum with collateral extension butterfly pattern signifying interval progression. Findings are suggestive of recurrent GBM rather than postradiation changes advised MR spectroscopy and MR perfusion if clinically warranted - IV dexamethasone 10 mg today, reassess additional steroid dosing tomorrow pending MRI results/response - Fall precautions - Clinically better since admission clinically better since admission Awaiting oncology evaluation #Hypokalemia - Check mag level - Replete oral - Electrolytes have been normalized #Type 2 Diabetes - BSG ACHS - will need to monitor glucose closely in the setting of increased steroid dosing - Hold Metformin - Insulin sliding scale - Diabetic diet-hemoglobin A1c is 6.0 #ELY on BiPAP - BiPAP HS per protocol #Hypertension - Chronic, stable - continue outpatient regimen on Pt seen and reviewed with collaborating physician, Dr. Curiel. Plan of care discussed and as outlined above. Code status: full code DVT prophylaxis: SCDs for now Admission and Anticipated Discharge Date Admission Date: February 01, 2025 Subjective 02/02/2025 The patient was seen and examined in medical telemetry unit He has significant history of glioblastoma resection on 1024 has been on Optune and Avastin and came in with twitching and spasms of his right arm and leg. He has been complaining of some headache this morning during my examination His twitching and spasms have resolved Denies any other significant symptoms Review of Systems Review of Systems: All systems reviewed and unremarkable except as noted below Physical Exam Physical Exam: Lying in bed without any acute distress Constitutional: well developed, well nourished, + ill appearing and + obese Eyes: PERRL, conjunctivae normal, anicteric sclerae ENMT: external ear and nose normal, oropharynx normal Neck: trachea midline, no thyromegaly Respiratory: + labored breathing; no respiratory dist ress Auscultation: lungs clear to auscultation bilaterally; no crackles Cardiovascular: Rate/Rhythm: regular rate and regular rhythm; not tachycardic Heart Sounds: normal S1 and normal S2; no murmur Extremities: no edema Gastrointestinal (Abdomen): Inspection/Auscultation: normal bowel sounds; abdomen not distended Percussion/Palpation: abdomen soft; abdomen nontender Musculoskeletal: No acute arthritis involving any of the joint Neurologic: normal touch/pain/proprioception and moves all extremities (Seems to have slightly less or in right-sided extremities) Speech / Cognition: normal speech Lymphatic: no cervical or axillary lymphadenopathy Results & Data Results & Data Vital Signs (Past 12 Hours) Vital Signs Temp Pulse Pulse Resp BP Pulse Ox O2 Del Method 02/02/25 11:17 36.3 C L 76 16 153/105 H 94 Room Air 02/02/25 07:55 36.3 C L 76 16 134/85 96 Room Air 02/02/25 07:30 65 02/02/25 03:59 37 C 64 18 114/77 95 Room Air 02/02/25 03:20 65 15 96 Laboratory Results Short CBC 02/01/25 02/02/25 Range/Units 12:13 09:29 WBC 17.54 H 14.19 H (4.8-10.8) K/ul Hgb 16.4 15.3 (14.0-18.0) g/dl Hct 49.8 45.1 (42.0-52.0) % Plt Count 229 243 (130-400) K/uL BMP 02/01/25 02/02/25 12:13 09:29 Sodium 136 137 Potassium 3.1 L 3.9 D Chloride 98 103 Carbon Dioxide 23 24 BUN 15 24 H Creatinine 0.90 0.86 Glucose 128 H 143 H Calcium 9.5 9.3 Liver Function 02/01/25 Range/Units 12:13 Total Bilirubin 0.8 (0.2-1.0) mg/dl AST 19 (13-39) U/L ALT 46 (7-52) U/L Alkaline Phosphatase 52 (34-104) U/L Albumin 4.2 (3.4-5.0) gm/dl Diagnostic Findings Laboratory Results WBC 14.19 K/ul (4.8-10.8) H 02/02/25 09: RBC 5.43 M/uL (4.70-6.10) 02/02/25 09: Hgb 15.3 g/dl (14.0-18.0) 02/02/25 09: Hct 45.1 % (42.0-52.0) 02/02/25 09: MCV 83.1 fL (80.0-100.0) 02/02/25 09: MCH 28.2 pg (25.0-34.0) 02/02/25 09: MCHC 33.9 g/dL (32.0-36.0) 02/02/25 09: RDW Std Deviation 43.2 fL (36.4-46.3) 02/02/25 09: RDW Coeff of Fani 14.3 % (11.5-14.5) 02/02/25 09: Plt Count 243 K/uL (130-400) 02/02/25 09: MPV 11.5 fL (9.4-12.4) 02/02/25 09: Immature Gran % (Auto) 0.6 % 02/02/25 09: Neut % (Auto) 85.4 % 02/02/25 09: Lymph % (Auto) 7.2 % 02/02/25 09:29 Wilson % (Auto) 6.5 % 02/02/25 09: Eos % (Auto) 0.1 % 02/02/25 09: Baso % (Auto) 0.2 % 02/02/25 09: Neut # (Auto) 12.12 K/uL (1.40-6.50) H 02/02/25 09: Lymph # (Auto) 1.02 K/uL (1.20-3.40) L 02/02/25 09: Wilson # (Auto) 0.92 K/uL (0.11-0.59) H 02/02/25 09: Eos # (Auto) 0.01 K/uL (0.00-0.50) 02/02/25 09: Baso # (Auto) 0.03 K/uL (0.00-0.20) 02/02/25 09: Immature Gran # (Auto) 0.09 K/uL (0.01-0.20) 02/02/25 09: Sodium 137 mmol/L (136-145) 02/02/25 09: Potassium 3.9 mmol/L (3.5-5.1) D 02/02/25 09: Chloride 103 mmol/L (98-107) 02/02/25 09: Carbon Dioxide 24 mmol/L (21-32) 02/02/25 09:29 Anion Gap 10 (3-11) 02/02/25 09:29 BUN 24 mg/dl (6-23) H 02/02/25 09: Creatinine 0.86 mg/dl (0.6-1.4) 02/02/25 09:29 Est Cr Clr Drug Dosing 122.9 ml/min 02/02/25 09:29 eGFR 104.18 02/02/25 09: BUN/Creatinine Ratio 27.9 (10-20) H 02/02/25 09:29 Glucose 143 mg/dl (70-99(Fasting)) H 02/02/25 09:29 POC Glucose 94 mg/dl (70-99) 02/02/25 11:54 Estimat Average Glucose 126 mg/dl 02/02/25 09:29 Hemoglobin A1c 6.0 % (4.5-5.6) H 02/02/25 09:29 Calcium 9.3 mg/dl (8.6-10.3) 02/02/25 09:29 Phosphorus 3.9 mg/dl (2.5-4.9) 02/01/25 18:36 Magnesium 2.2 mg/dl (1.7-2.4) 02/02/25 09:29 Total Bilirubin 0.8 mg/dl (0.2-1.0) 02/01/25 12:13 AST 19 U/L (13-39) 02/01/25 12:13 ALT 46 U/L (7-52) 02/01/25 12:13 Alkaline Phosphatase 52 U/L (34-104) 02/01/25 12:13 Troponin I High Sens 5.5 pg/ml (0-20) 02/01/25 12:13 Total Protein 7.6 gm/dl (6.0-8.3) 02/01/25 12:13 Albumin 4.2 gm/dl (3.4-5.0) 02/01/25 12:13 Globulin 3.4 gm/dl (2.5-4.0) 02/01/25 12:13 Albumin/Globulin Ratio 1.2 (0.9-2) 02/01/25 12:13 Lipase 18 U/L (11-82) 02/01/25 12:13 TSH 1.166 uIu/ml (0.300-4.500) 02/01/25 18:36 Impressions Chest X-Ray 02/01/25 12:13 XR chest 1V portable CLINICAL HISTORY: Chest pain, nonspecific COMPARISON STUDY: Chest radiograph December 09, 2024. FINDINGS: Right internal jugular Gwhouf-g-Nvol remains in place. Lung volumes are normal. Lungs are clear. There is no pneumothorax or pleural effusion. Cardiac size is normal. Mediastinal contours are normal. There is no evidence for pulmonary edema. IMPRESSION: No acute cardiopulmonary findings. ACT 112: Negative or not required by law. Electronically signed by: Jose Cruz Coon M.D. 02/01/2025 2:[address] 02/01/25 12:13 CT SCAN OF THE BRAIN WITHOUT IV CONTRAST CLINICAL HISTORY: Right-sided weakness. Glioblastoma. COMPARISON STUDY: Head CT and CTA of the head May 06, 2024. MRI of the brain November 18, 2024. TECHNIQUE: Unenhanced axial CT scan of the brain was performed from the vertex to the skull base. A dose lowering technique was utilized adhering to the principles of ALARA. CT DOSE: 625.8 mGy.cm FINDINGS: Left-sided craniotomy is noted. No acute intracranial hemorrhage, midline shift or mass effect is present. Multifocal calcifications measuring up to 1.5 cm within the left parietal lobe are noted. Several adjacent hypodense foci are noted, including a 2.6 x 0.9 cm focus within the left splenium of the corpus callosum on image 80 of 120. No definite corresponding abnormality was identified on MRI of November 18, 2024. Smaller adjacent hypodense focus adjacent to the atrium of the left lateral ventricle is present. Basal cisterns are patent. There are no extra axial collections. No findings to suggest acute dural sinus thrombosis or acute territorial infarct. IMPRESSION: 1. No acute intracranial hemorrhage. 2. Status post left parietal craniotomy. Hypodensity within the operative bed with multifocal calcifications. These are nonspecific although could represent treated tumor. 3. Adjacent hypodensities, including a 2.6 x 0.9 cm focus within the left splenium of the corpus callosum. This abnormality appears new since CT of November 18, 2024. This is nonspecific and could be treatment-related although underlying tumor cannot be excluded on unenhanced CT. ACT 112: Negative or not required by law. Electronically signed by: Jose Cruz Coon M.D. 02/01/2025 2:03 PM Brain MRI 02/01/25 15:47 EXAM: MR brain wo/w con CLINICAL HISTORY: hx GBM, new RUE spasm TECHNIQUE: Multiplanar and multi-echo MRI of the brain was performed with and without contrast. 12 ml Gadavist was given as an intravenous contrast. COMPARISON: 11/18/2024 MRI, 07/29/2024 MRI, and 05/06/2024 MRI FINDINGS: Brain Parenchyma: A lobulated, marginally enhancing intra-axial mass is noted peritrigonal at the left parieto-occipital lobe with involvement of the posterior body of the corpus callosum. It measures 2 x 3 x 3.6 cm in anteroposterior, transverse, and craniocaudal dimensions. It shows central necrosis and a small central area of high signal on T1, likely representing a hemorrhagic streak. It is associated with mild ependymal enhancement of the occipital horn of the left lateral ventricle. It is surrounded by a moderate degree of vasogenic edema. The edema signal crosses the corpus callosum into the right peritrigonal occipital region, with extension of the abnormal high T2 signal to the right parietal periventricular region. The mass and edema exert mass effect in the form of effacement of the related cortical sulci and compression of the occipital horn of the left lateral ventricle. Another nearby heterogeneously enhancing lesion with streaks of hemorrhage is noted subcortically at the left high parietal region. It measures 4 x 1.2 x 2.7 cm in anteroposterior, transverse, and craniocaudal dimensions. It is surrounded by mild vasogenic edema, exerting mass effect in the form of effacement of the related cortical sulci. The previously described lesions show mild restriction on DWI images. No evidence of acute infarct. Few foci of high T2 signal are noted within the brainstem, likely representing small vessel disease. Ventricular System: No evidence of hydrocephalus or ventricular enlargement. Subarachnoid Spaces: Normal sulci and cisterns. No evidence of subarachnoid hemorrhage or extra-axial fluid collections. Meninges: Mild dural thickening overlying the above lesions at the operative bed. No other abnormal meningeal enhancement or thickening. Orbits: Normal appearance of the globes, optic nerves, and extraocular muscles. No evidence of orbital masses or abnormal signal. Skull: Normal appearance of the skull. No evidence of fractures or abnormal signal changes. Left parietal craniotomy is again noted. IMPRESSION: 1. Two intra-axial, marginally enhancing masses with surrounding moderate vasogenic edema are noted at the left peritrigonal and left subcortical high parietal region, measuring 2 x 3 x 3.6 cm and 4 x 1.2 x 2.7 cm, respectively, with intralesional hemorrhagic streaks. The former shows involvement of the corpus callosum with contralateral extension (butterfly pattern). Interval progression. 2. Findings are suggestive of recurrent GBM rather than postradiation changes. Advise MR spectroscopy and MR perfusion if clinically warranted. Electronically signed by Sukh Masters 02-01-2025 7:15 PM Medications Administered Current Inpatient Medications Acetaminophen (Acetaminophen 500 Mg Tab) 1,000 mg PO Q8H PRN PRN Reason: Headache or Pain Stop: 03/04/25 10:47 Last Admin: 02/02/25 11:02 Dose: 1,000 mg Amlodipine Besylate (Amlodipine Besylate 5 Mg Tab) 10 mg PO DAILY MADELIN Stop: 03/04/25 08:59 Last Admin: 02/02/25 09:06 Dose: 10 mg Dextrose (Dextrose 50% 50 Ml Syringe) 25 - 50 ml IV UD PRN; Protocol PRN Reason: Hypoglycemia Protocol Stop: 03/03/25 15:52 Famotidine (Famotidine 20 Mg Tab) 20 mg PO DAILY MADELIN Stop: 03/04/25 08:59 Last Admin: 02/02/25 09:21 Dose: 20 mg Glucagon (Glucagon For Inj 1 Mg Vial) 1 mg SQ UD PRN; Protocol PRN Reason: Hypoglycemia Protocol Stop: 03/03/25 15:52 Glucose (Glucose 40% Gel 15 Gm Tube) 15 - 30 gm PO UD PRN; Protocol PRN Reason: Hypoglycemia Protocol Stop: 03/03/25 15:52 Glucose (Glucose 10 Tab/Tube) 4 - 8 tab PO UD PRN; Protocol PRN Reason: Hypoglycemia Protocol Stop: 03/03/25 15:52 HCTZ/Losartan Potassium (Losartan/Hctz 50/12.5mg Tab) 1 tab PO BID MADELIN Stop: 03/03/25 20:59 Last Admin: 02/02/25 09:07 Dose: 1 tab Hydroxyzine HCl (Hydroxyzine Hcl 25 Mg Tab) 25 mg PO TID PRN PRN Reason: Anxiety Stop: 03/03/25 17:47 Magnesium Sulfate/Dextrose (Magnesium Sulfate / D5w) 1 gm in 100 mls @ 50 mls/hr IV Q2H MADELIN Stop: 02/02/25 12:44 Last Admin: 02/02/25 11:02 Dose: 50 mls/hr Insulin Aspart (Insulin Aspart Per Unit Charge) 0 units SC ACHS MADELIN Stop: 03/03/25 16:29 Last Admin: 02/02/25 10:07 Dose: 8 units Levetiracetam (Levetiracetam 500 Mg Tab) 500 mg PO BID MADELIN Stop: 03/03/25 20:59 Last Admin: 02/02/25 09:06 Dose: 500 mg Miscellaneous (Carbohydrates For Hypoglycemia ) 15 - 30 gm PO UD PRN PRN Reason: Hypoglycemia Protocol Stop: 03/03/25 15:52 Miscellaneous (Remove Nicoderm Patch) 1 each N/A DAILY@0859 [facility] Stop: 03/05/25 08:58 Miscellaneous Information (Pharmacist Discharge Med Rec Consult) 1 each N/A UD PRN PRN Reason: Consult Stop: 03/03/25 18:10 Nicotine (Nicotine 14 Mg/24 Hr Patch) 1 patch TD [facility] Stop: 03/04/25 09:44 Last Admin: 02/02/25 10:08 Dose: 1 patch Ondansetron HCl (Ondansetron 4 Mg Od Tab) 4 mg PO Q6H PRN PRN Reason: Nausea And Vomiting Stop: 03/03/25 17:50 Sertraline HCl (Sertraline Hcl 50 Mg Tablet) [facility] [place] Stop: 03/04/25 08:59 Last Admin: 02/02/25 09:06 Dose: 50 mg (3) Sleep apnea Sleep apnea type: obstructive Qualified Code(s): G47.33 - Obstructive sleep apnea (adult) (pediatric) (5) Diabetes Diabetes mellitus type: type 2 Diabetes mellitus snf insulin use: without extermination supervisor use Diabetes mellitus complication status: with other specified complication Qualified Code(s): E11.69 - Type 2 diabetes mellitus with other specified complication
--- NOTE | 2025-02-02 15:30 | Oncology Consultation ---
Date of Consultation February 02, 2025 Assessment & Plan (1) Glioblastoma multiforme of parietal lobe: given the progressive disease we will stop the Avastin, will start him on a combination of carmustine plus minus Keytruda based on insurance approval Plan thank you for this interesting oncological consult History of Present Illness Reason for Consultation: glioblastoma multiforme Attending Physician: Marizol Keane MD History of Present Illness Diagnosis: Glioblastoma multiform a, involving left parietal lobe, WHO grade 4 Date of diagnosis: 01/22/2024 Surgical treatment, subtotal resection, 01/22/2024 Concurrent chemoradiation, temozolomide plus RT, 02/27/2024 to 04/10/2024 MRI of the brain, 05/06/2023 progressive disease. Current treatment: Treatment recommendation for optune + bevacizumab MRI brain, 07/29/2024: IMPRESSION: Significant decrease in enhancement and moderate decrease in extent of the multifocal left parietal lobe lesions since MRI of May 06, 2024 consistent with a partial treatment response. Residual enhancement, as described above. Improvement in associated T2 hyperintensity. No progressive disease. MRI Brain; 11/18/2024: There is decreased enhancement within the left multifocal left parietal lobe lesions compared to the 07/29/2024 exam consistent with a continue partial treatment response. No progressive disease. brain MRI, 02/01/2025: IMPRESSION: 1. Two intra-axial, marginally enhancing masses with surrounding moderate vasogenic edema are noted at the left peritrigonal and left subcortical high parietal region, measuring 2 x 3 x 3.6 cm and 4 x 1.2 x 2.7 cm, respectively, with intralesional hemorrhagic streaks. The former shows involvement of the corpus callosum with contralateral extension (butterfly pattern). Interval progression. 2. Findings are suggestive of recurrent GBM rather than postradiation changes. Advise MR spectroscopy and MR perfusion if clinically warranted. Allergies Allergy/AdvReac Type Severity Reaction Status Date / Time No Known Allergies Allergy Unknown Verified 12/09/24 06:22 Home Medications Medication Instructions Recorded Confirmed Type losartan 50 mg-hydrochlorothiazide 1 tab PO BID 01/16/24 02/01/25 History 12.5 mg tablet metformin 500 mg tablet,extended 1,000 mg PO BID 01/16/24 02/01/25 History release 24 hr tirzepatide 2.5 mg/0.5 mL 2.5 mg subcut Q7D 01/16/24 02/01/25 History subcutaneous pen injector (Mag) sertraline 50 mg tablet (Zoloft) 50 mg PO QAM 06/17/24 02/01/25 History potassium chloride 20 mEq 20 meq PO DIRECTED 08/20/24 02/01/25 History tablet,extended release(part/cryst) amlodipine 10 mg tablet 10 mg PO DAILY 02/01/25 02/01/25 History dexamethasone 2 mg tablet 2 mg PO Q2D 02/01/25 02/01/25 History famotidine 20 mg tablet 20 mg PO DAILY 02/01/25 02/01/25 History hydroxyzine pamoate 25 mg capsule 25 mg PO TID PRN Anxiety 02/01/25 02/01/25 History ondansetron HCl 4 mg tablet 4 mg PO Q6H PRN Nausea 02/01/25 02/01/25 History levetiracetam 1,000 mg tablet 1,000 mg PO BID #60 tabs 02/03/25 Rx (Keppra) nicotine 7 mg/24 hr daily 1 patch transdermal QAM #3 ea 02/03/25 Rx transdermal patch Patient History Medical History Hx of gastroesophageal reflux (GERD) Infected venous access port 07/2024- patient admitted to 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 Sleep apnea bipap Hypokalemia takes potassium prn. Hypertension Diabetes mellitus, type 2 NIDDM + GLP-1 weekly injection Anxiety Right leg weakness due to brain cancer Glioblastoma multiforme of parietal lobe following with onc at [facility]- s/p craniotomy and tumor resection 12/2023- has loss of feeling in right leg + currently treated with immunotherapy. Surgical History H/O insertion of central venous access port (07/02/24) Insertion of Access Port with Fluoroscopy(Left) - Tato Lutz DO, MARCOS History of removal of Port-a-Cath (08/20/24) Aport Removal - Tato Lutz DO, MARCOS History of surgery Left hand surgery d/t nail in hand S/P craniotomy (01/22/24) Left craniotomy for tumor resection 01/22/24 Dr. Lopez at [facility] Family History Mother No problems noted. Father Diabetes Hypertension Brother No problems noted. Sister No problems noted. Son No problems noted. Daughter No problems noted. Grandmother Diabetes Other Cancer No family history of adverse response to anesthesia Social History Smoking Status: Never smoker Tobacco Type: Smokeless Tobacco (Dip or Chew) Cigarettes Per Day: 1 PPD x 7-8 yrs; Second Hand Exposure: No; Do You Dip or Chew Tobacco: Yes; Tobacco Cessation Education Requested by Patient: No Hx Alcohol Use: Yes Alcohol type: beer Hx Substance Use: Yes Non-Prescribed Medications: Marijuana Last Used Substance: Just Prior to Arrival Last Used Substance Other:: gummies 1-2x/month Substance Use Type Other:: THC gummies Preferred Language: Yoruba Communication Ability: Effective Visual Impairment: No Limitations Hearing Ability: Normal College Counselor Required: No Beliefs That Will Affect Care: None marital status: Current Living Situation: Spouse current occupational status: unemployed 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 [employer] How many Children do You have: 2 Other Information That Helps Us Care for You: No Feels Safe at Home: Yes Diet: diabetic during the past year weight has: remained stable Assistive Devices: Walker Review of Systems Review of Systems: All systems reviewed & are unremarkable except as noted in HPI & below Constitutional: as per Subjective / HPI Eyes: as per Subjective / HPI Ear, Nose, Mouth, Throat: as per Subjective / HPI Respiratory: as per Subjective / HPI Cardiovascular: as per Subjective / HPI Gastrointestinal: as per Subjective / HPI Genitourinary: + as per Subjective / HPI Musculoskeletal: as per Subjective / HPI Integumentary: as per Subjective / HPI Neurologic: as per Subjective / HPI Psychiatric: as per Subjective / HPI Endocrine: as per Subjective / HPI Hematologic / Lymphatic: as per Subjective / HPI Physical Exam Constitutional: WD/WN, vitals as above Eyes: PERRL, conjunctivae normal, anicteric sclerae ENMT: external ear and nose normal, oropharynx normal Neck: trachea midline, no thyromegaly Respiratory: normal respiratory effort, lungs clear to auscultation Cardiovascular: RRR, no murmur, no edema Gastrointestinal (Abdomen): normal bowel sounds, soft, nontender, no hepatosplenomegaly Musculoskeletal: no cyanosis or clubbing, extremities motor strength 5/5 Neurologic: patellar DTR's 2+ bilat, sensation intact Psychiatric: A+Ox3, euthymic affect Lymphatic: no cervical or axillary lymphadenopathy Results & Data Vital Signs (Past 12 Hours) Vital Signs Temp Pulse Pulse Pulse Resp BP Pulse Ox 02/02/25 15:21 36.3 C L 72 16 128/82 95 02/02/25 12:22 68 18 155/84 H 94 02/02/25 11:17 36.3 C L 76 16 153/105 H 94 02/02/25 07:55 36.3 C L 76 16 134/85 96 02/02/25 07:30 65 02/02/25 03:59 37 C 64 18 114/77 95 O2 Del Method 02/02/25 15:21 Room Air 02/02/25 12:22 Room Air 02/02/25 11:17 Room Air 02/02/25 07:55 Room Air 02/02/25 07:30 02/02/25 03:59 Room Air
[2025-02-03 03:02] VITALS: BP 108/78; RESP 18; TEMP 97.5; O2SAT 96
--- NOTE | 2025-02-03 10:31 | Neurology Consultation ---
Date of Consultation February 03, 2025 Assessment & Plan (1) Seizure-like activity: Likely focal seizure in a 54M with a PMH of left parietal lobe GBM sp resection. His exam is significant for mild right sided weakness which is his baseline. MRI was completed and is concerning for progression of his disease. Plan -- continue Keppra 1g BID -- please have MRI uploaded to [email or web address] for his surgeons review -- outpatient neurosurgery and neurology follow up Telehealth Consultation Telehealth Information Telehealth Information: I performed this visit using a real-time telehealth connection between my location and the patients originating location ([facility]). After connecting through interactive tele-video, patient was identified by name and date of and/or wristband check.Patient (or authorized healthcare site safety representative) was informed that this was a telemedicine visit and it was being conducted confidentially over secure lines. My office door was closed and no one else was present in the room with me.Patient (or authorized healthcare site safety representative) provided consent to proceed with the visit, expressed an understanding of privacy and security of the telemedicine visit, and gave permission to have a hospital site safety representative in the room in order to assist with the visit and to conduct portions of the visit, as needed. I informed the patient (or authorized healthcare site safety representative) that I reviewed their record and presented the opportunity for them to ask any questions regarding the visit today. The patient agreed to participate. History of Present Illness Reason for Consultation: seizure Attending Physician: Marizol Keane MD History of Present Illness Mariano Guillen is a 54M with a PMH of left parietal lobe GBM sp resection in 01/16, tobacco use, obesity, ELY and diabetes who presents with seizure like activity. He reports several episodes over the last year where his right hand will cramp up and he will be unable to move it. It is just from the wrist down and lasts for 2-3 minutes then resolves. He can also have some abnormal movements in his right leg occasionally, which he describes as jumping. He otherwise reports being at his baseline and denies any headaches, fevers, chills, chest pain and SOB. He has some chronic right sided weakness which is stable. Allergies Allergy/AdvReac Type Severity Reaction Status Date / Time No Known Allergies Allergy Unknown Verified 12/09/24 06:22 Home Medications Medication Instructions Recorded Confirmed Type losartan 50 mg-hydrochlorothiazide 1 tab PO BID 01/16/24 02/01/25 History 12.5 mg tablet metformin 500 mg tablet,extended 1,000 mg PO BID 01/16/24 02/01/25 History release 24 hr tirzepatide 2.5 mg/0.5 mL 2.5 mg subcut Q7D 01/16/24 02/01/25 History subcutaneous pen injector (Mag) sertraline 50 mg tablet (Zoloft) 50 mg PO QAM 06/17/24 02/01/25 History potassium chloride 20 mEq 20 meq PO DIRECTED 08/20/24 02/01/25 History tablet,extended release(part/cryst) amlodipine 10 mg tablet 10 mg PO DAILY 02/01/25 02/01/25 History dexamethasone 2 mg tablet 2 mg PO Q2D 02/01/25 02/01/25 History famotidine 20 mg tablet 20 mg PO DAILY 02/01/25 02/01/25 History hydroxyzine pamoate 25 mg capsule 25 mg PO TID PRN Anxiety 02/01/25 02/01/25 History ondansetron HCl 4 mg tablet 4 mg PO Q6H PRN Nausea 02/01/25 02/01/25 History Patient History Medical History Hx of gastroesophageal reflux (GERD) Infected venous access port 07/2024- patient admitted [facility]- port removed 08/20/24 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 Sleep apnea bipap Hypokalemia takes potassium prn. Hypertension Diabetes mellitus, type 2 NIDDM + GLP-1 weekly injection Anxiety Right leg weakness due to brain cancer Glioblastoma multiforme of parietal lobe following with onc at [facility]- s/p craniotomy and tumor resection 12/2023- has loss of feeling in right leg + currently treated with immunotherapy. Surgical History H/O insertion of central venous access port (07/02/24) Insertion of Access Port with Fluoroscopy(Left) - Tato Lutz DO, FACS History of removal of Port-a-Cath (08/20/24) Aport Removal - Tato Lutz DO, FACS History of surgery Left hand surgery d/t nail in hand S/P craniotomy (01/22/24) Left craniotomy for tumor resection 01/22/24 Dr. Lopez at [facility] Family History Mother No problems noted. Father Diabetes Hypertension Brother No problems noted. Sister No problems noted. Son No problems noted. Daughter No problems noted. Grandmother Diabetes Other Cancer No family history of adverse response to anesthesia Social History Smoking Status: Never smoker Tobacco Type: Smokeless Tobacco (Dip or Chew) Cigarettes Per Day: 1 PPD x 7-8 yrs; Second Hand Exposure: No; Do You Dip or Chew Tobacco: Yes; Tobacco Cessation Education Requested by Patient: No Hx Alcohol Use: Yes Alcohol type: beer Hx Substance Use: Yes Non-Prescribed Medications: Marijuana Last Used Substance: Just Prior to Arrival Last Used Substance Other:: gummies 1-2x/month Substance Use Type Other:: THC gummies Preferred Language: Kiswahili Communication Ability: Effective Visual Impairment: No Limitations Hearing Ability: Normal Management Rep Required: No Beliefs That Will Affect Care: None marital status: Current Living Situation: Spouse current occupational status: unemployed 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 [employer] How many Children do You have: 2 Other Information That Helps Us Care for You: No Feels Safe at Home: Yes Diet: diabetic during the past year weight has: remained stable Assistive Devices: Walker Review of Systems see HPI Physical Exam NEUROLOGIC EXAMINATION: Mental Status:alert, oriented to time, place, person, normal recent memory, normal remote memory, normal attention span, normal concentration, normal language, and normal fund of knowledge Cranial Nerves: CN 2 - no visual defect on confrontation and pupils round, equal, reactive to light CN 3, 4, 6 - extra-ocular movements intact and no nystagmus CN 5 - facial sensation intact CN 7 - no facial asymmetry CN 8 - intact hearing CN 9, 10 - palate symmetric, normal gag CN 11 - good shoulder shrug CN 12 - tongue midline MOTOR: Strength was at least antigravity throughout, Sensory drift on the right arm and leg SENSATION: intact GAIT: deferred COORDINATION: no ataxia with finger to nose testing and heel to crooks testing REFLEXES: cannot assess over telemedicine Results & Data Vital Signs (Past 12 Hours) Vital Signs Temp Pulse Pulse Resp BP Pulse Ox O2 Del Method 02/03/25 07:31 56 L 02/03/25 02:33 36.4 C L 64 18 108/78 96 Room Air 02/03/25 02:22 54 L 19 98 02/02/25 23:09 68 14 94 02/02/25 22:33 36.9 C 70 18 103/71 91 Room Air, CPAP FiO2 02/03/25 07:31 02/03/25 02:33 02/03/25 02:22 21 02/02/25 23:09 21 02/02/25 22:33 Laboratory Results Abnormal Lab Results 02/02/25 02/02/25 02/02/25 09:29 11:54 16:50 Sodium 137 Potassium 3.9 D Chloride 103 Carbon Dioxide 24 Anion Gap 10 BUN 24 H Creatinine 0.86 Est Cr Clr Drug Dosing 122.9 eGFR 104.18 BUN/Creatinine Ratio 27.9 H Glucose 143 H POC Glucose 94 95 Calcium 9.3 Magnesium 2.2 02/02/25 02/03/25 20:10 07:21 Sodium Potassium Chloride Carbon Dioxide Anion Gap BUN Creatinine Est Cr Clr Drug Dosing eGFR BUN/Creatinine Ratio Glucose POC Glucose 97 85 Calcium Magnesium Diagnostic Findings Chest X-Ray 02/01/25 12:13 XR chest 1V portable CLINICAL HISTORY: Chest pain, nonspecific COMPARISON STUDY: Chest radiograph December 09, 2024. FINDINGS: Right internal jugular [id number] remains in place. Lung volumes are normal. Lungs are clear. There is no pneumothorax or pleural effusion. Cardiac size is normal. Mediastinal contours are normal. There is no evidence for pulmonary edema. IMPRESSION: No acute cardiopulmonary findings. ACT 112: Negative or not required by law. Electronically signed by: Jose Cruz Coon M.D. 02/01/2025 2:[address] 02/01/25 12:13 CT SCAN OF THE BRAIN WITHOUT IV CONTRAST CLINICAL HISTORY: Right-sided weakness. Glioblastoma. COMPARISON STUDY: Head CT and CTA of the head May 06, 2024. MRI of the brain November 18, 2024. TECHNIQUE: Unenhanced axial CT scan of the brain was performed from the vertex to the skull base. A dose lowering technique was utilized adhering to the principles of ALARA. CT DOSE: 625.8 mGy.cm FINDINGS: Left-sided craniotomy is noted. No acute intracranial hemorrhage, midline shift or mass effect is present. Multifocal calcifications measuring up to 1.5 cm within the left parietal lobe are noted. Several adjacent hypodense foci are noted, including a 2.6 x 0.9 cm focus within the left splenium of the corpus callosum on image 80 of 120. No definite corresponding abnormality was id entified on MRI of November 18, 2024. Smaller adjacent hypodense focus adjacent to the atrium of the left lateral ventricle is present. Basal cisterns are patent. There are no extra axial collections. No findings to suggest acute dural sinus thrombosis or acute territorial infarct. IMPRESSION: 1. No acute intracranial hemorrhage. 2. Status post left parietal craniotomy. Hypodensity within the operative bed with multifocal calcifications. These are nonspecific although could represent treated tumor. 3. Adjacent hypodensities, including a 2.6 x 0.9 cm focus within the left splenium of the corpus callosum. This abnormality appears new since CT of November 18, 2024. This is nonspecific and could be treatment-related although underlying tumor cannot be excluded on unenhanced CT. ACT 112: Negative or not required by law. Electronically signed by: Jose Cruz Coon M.D. 02/01/2025 2:03 PM Brain MRI 02/01/25 15:47 EXAM: MR brain wo/w con CLINICAL HISTORY: hx GBM, new RUE spasm TECHNIQUE: Multiplanar and multi-echo MRI of the brain was performed with and without contrast. 12 ml Gadavist was given as an intravenous contrast. COMPARISON: 11/18/2024 MRI, 07/29/2024 MRI, and 05/06/2024 MRI FINDINGS: Brain Parenchyma: A lobulated, marginally enhancing intra-axial mass is noted peritrigonal at the left parieto-occipital lobe with involvement of the posterior body of the corpus callosum. It measures 2 x 3 x 3.6 cm in anteroposterior, transverse, and craniocaudal dimensions. It shows central necrosis and a small central area of high signal on T1, likely representing a hemorrhagic streak. It is associated with mild ependymal enhancement of the occipital horn of the left lateral ventricle. It is surrounded by a moderate degree of vasogenic edema. The edema signal crosses the corpus callosum into the right peritrigonal occipital region, with extension of the abnormal high T2 signal to the right parietal periventricular region. The mass and edema exert mass effect in the form of effacement of the related cortical sulci and compression of the occipital horn of the left lateral ventricle. Another nearby heterogeneously enhancing lesion with streaks of hemorrhage is noted subcortically at the left high parietal region. It measures 4 x 1.2 x 2.7 cm in anteroposterior, transverse, and craniocaudal dimensions. It is surrounded by mild vasogenic edema, exerting mass effect in the form of effacement of the related cortical sulci. The previously described lesions show mild restriction on DWI images. No evidence of acute infarct. Few foci of high T2 signal are noted within the brainstem, likely representing small vessel disease. Ventricular System: No evidence of hydrocephalus or ventricular enlargement. Subarachnoid Spaces: Normal sulci and cisterns. No evidence of subarachnoid hemorrhage or extra-axial fluid collections. Meninges: Mild dural thickening overlying the above lesions at the operative bed. No other abnormal meningeal enhancement or thickening. Orbits: Normal appearance of the globes, optic nerves, and extraocular muscles. No evidence of orbital masses or abnormal signal. Skull: Normal appearance of the skull. No evidence of fractures or abnormal signal changes. Left parietal craniotomy is again noted. IMPRESSION: 1. Two intra-axial, marginally enhancing masses with surrounding moderate vasogenic edema are noted at the left peritrigonal and left subcortical high parietal region, measuring 2 x 3 x 3.6 cm and 4 x 1.2 x 2.7 cm, respectively, with intralesional hemorrhagic streaks. The former shows involvement of the corpus callosum with contralateral extension (butterfly pattern). Interval progression. 2. Findings are suggestive of recurrent GBM rather than postradiation changes. Advise MR spectroscopy and MR perfusion if clinically warranted. Electronically signed by Sukh Masters 02-01-2025 7:15 PM
[2025-02-03] MEDS: REMOVE NICODERM PATCH SCH (11:01)
--- NOTE | 2025-02-03 13:35 | Hospitalist Progress Note ---
Date of Service February 03, 2025 Assessment & Plan (1) Spasmodic movement of extremities: (2) Glioblastoma multiforme of parietal lobe: (3) Sleep apnea: (4) Hypokalemia: (5) Diabetes: Plan This is a 54 y/o male with glioblastoma s/p resection 01/16 ([facility] [place] [place] neurosurgery), now using Optune and Avastin (follows w/ [facility]), DM2, ELY on BiPAP, HTN, and other history as outlined below who presented to the ED with twitching and spasm of his right arm and leg. Lab work in the ED significant for elevated WBCs at 17.54, potassium 3.1. CT head showed no acute intracranial hemorrhage, +hypodensity w/in operative bed w/ multifocal calcifications, +adjacent hypodensities including 2.6 x 0.9 cm focus w/in left splenium of corpus callosum (new from 11/17 - treatment related vs. underlying tumor). Pt seen be teleneurology in the ED who recommended initiation of Keppra and admission for further work-up. #Episodic RUE/RLE spasmodic movements #Glioblastoma s/p resection 01/16, now treated w/ Optune/Avastin - Status post teleneurology evaluation and recommendation as below - EEG to evaluate for possible seizure - Continue Keppra initiated in the ED - MRI brain showed 2 intra-atrial, marginally enhancing masses with surrounding moderate vasogenic edema noted at the left peritrigonal and left subcortical high parietal region measuring 2 x 3 x 3.6 and 4 x 1.2 x 2.7 cm respectively with intralesional hemorrhagic springs. The former shows involvement of the corpus callosum with collateral extension butterfly pattern signifying interval progression. Findings are suggestive of recurrent GBM rather than postradiation changes advised MR spectroscopy and MR perfusion if clinically warranted - IV dexamethasone 10 mg today, reassess additional steroid dosing tomorrow pending MRI results/response - Fall precautions - Clinically better since admission clinically better since admission was seen by oncologist and will have adjustment of chemotherapeutic drugs as an outpatient Has had neurology evaluation and will be discharged on Keppra 1000 mg twice daily with outpatient neurology and neurosurgery appointment #Hypokalemia - Check mag level - Replete oral - Electrolytes have been normalized #Type 2 Diabetes - BSG ACHS - will need to monitor glucose closely in the setting of increased steroid dosing - Hold Metformin - Insulin sliding scale - Diabetic diet-hemoglobin A1c is 6.0 #ELY on BiPAP - BiPAP HS per protocol #Hypertension - Chronic, stable - continue outpatient regimen on Pt seen and reviewed with collaborating physician, Dr. Curiel. Plan of care discussed and as outlined above. Code status: full code DVT prophylaxis: SCDs for now Admission and Anticipated Discharge Date Admission Date: February 01, 2025 Subjective 02/02/2025 The patient was seen and examined in medical telemetry unit He has significant history of glioblastoma resection on 1024 has been on Optune and Avastin and came in with twitching and spasms of his right arm and leg. He has been complaining of some headache this morning during my examination His twitching and spasms have resolved Denies any other significant symptoms 02/03/2025 The patient was seen and examined in medical telemetry unit in presence of the He denies any more tremors and or abnormal movements He was seen by neurologist Has had physical therapy and recommended home Review of Systems Review of Systems: All systems reviewed and unremarkable except as noted below Physical Exam Physical Exam: Lying in bed without any acute distress Constitutional: well developed, well nourished, + ill appearing and + obese Eyes: PERRL, conjunctivae normal, anicteric sclerae ENMT: external ear and nose normal, oropharynx normal Neck: trachea midline, no thyromegaly Respiratory: + labored breathing; no respiratory dist ress Auscultation: lungs clear to auscultation bilaterally; no crackles Cardiovascular: Rate/Rhythm: regular rate and regular rhythm; not tachycardic Heart Sounds: normal S1 and normal S2; no murmur Extremities: no edema Gastrointestinal (Abdomen): Inspection/Auscultation: normal bowel sounds; abdomen not distended Percussion/Palpation: abdomen soft; abdomen nontender Neurologic: normal touch/pain/proprioception and moves all extremities (Seems to have slightly less or in right-sided extremities) Speech / Cognition: normal speech Lymphatic: no cervical or axillary lymphadenopathy Results & Data Results & Data Vital Signs (Past 12 Hours) Vital Signs Temp Pulse Pulse Resp BP Pulse Ox O2 Del Method 02/03/25 07:31 56 L 02/03/25 02:33 36.4 C L 64 18 108/78 96 Room Air 02/03/25 02:22 54 L 19 98 FiO2 02/03/25 07:31 02/03/25 02:33 02/03/25 02:22 21 (3) Sleep apnea Sleep apnea type: obstructive Qualified Code(s): G47.33 - Obstructive sleep apnea (adult) (pediatric) (5) Diabetes Diabetes mellitus complication status: with other specified complication Diabetes mellitus marketing account manager insulin use: without marketing account manager use Diabetes mellitus type: type 2 Qualified Code(s): E11.69 - Type 2 diabetes mellitus with other specified complication
[2025-02-03 15:54] VITALS: PULSE 80
[2025-02-03] MEDS ORDERED: levETIRAcetam 500 MG TAB PO SCH (21:00)
--- NOTE | 2025-02-05 12:58 | Electrocardiogram Report ---
Test Reason : Blood Pressure : */* mmHG Vent. Rate : 132 BPM Atrial Rate : 132 BPM P-R Int : 140 ms QRS Dur : 78 ms QT Int : 316 ms P-R-T Axes : 29 -72 32 degrees QTcB Int : 468 ms Sinus tachycardia Left anterior fascicular block Anterior infarct , age undetermined Abnormal ECG When compared with ECG of 13-Jun-2024 11:44, No significant change Inferior leads Confirmed by Nestor Rodriguez ([id number]) on 02/05/2025 12:58:24 PM Referred By: REFERRED SELF Confirmed By: Nestor Rodriguez
== END 2025-02-03 15:54 | disposition home or self-care (01) | DRG 55 ==
LOC: ED 12:01 → SUATTDRO 15:47 → 2N 15:47